=== PATIENT | female | born 1975 | race Caucasian/White ===

== ENCOUNTER 2020-06-14 18:38 | Emergency (ER) | payer OTHER, SELFPAY ==
[2020-06-14 18:44] VITALS: BP 129/82; BP 135/87; PULSE 86; PULSE 88; RESP 15; TEMP 37.1; O2SAT 95; O2SAT 99; BMI 28.6
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
[2020-06-14 18:50] LABS: Glucose, Whole Blood 502 mg/dL (60-115)
--- NOTE | 2020-06-14 18:54 | XR_ITS ---
EXAMINATION: XR CHEST CLINICAL INFORMATION: Atypical pneumonia COMPARISON: 12/09/2018 TECHNIQUE: Frontal view of the chest was obtained. FINDINGS: No significant abnormality is noted involving the heart, lungs, mediastinum, bony thorax or soft tissues. XR/XR chest 1V IMPRESSION: Unremarkable examination.
[2020-06-14] MEDS: 0.9 % Sodium Chloride 1,000 ML 999 ML IVCONT (19:00)
[2020-06-14 19:35] LABS: Basophils Percent Auto 0.1 % (0-2); Eosinophils Absolute Auto 0.3 X10*3/uL (0.0-0.4); Eosinophils Percent Auto 3.5 % (0-4); Hematocrit 38.9 % (37-47); Hemoglobin 13.1 g/dl (12.0-16.0); Imm Gran Abs Auto 0.02 X10*3/uL (0.00-0.03); Imm Gran Pct Auto 0.3 % (0.0-0.4); Lymphocytes Absolute Auto 2.4 X10*3/uL (1.2-4.9); Lymphocytes Percent Auto 31.9 % (20-40); MANUAL DIFF FLAG NO; Mean Corpuscular HGB Conc 33.7 g/dl (31.0-35.0); Mean Corpuscular Hemoglobin 30.5 pg (27.0-33.0); Mean Corpuscular Volume 90.5 fL (80-98); Monocytes Absolute Auto 0.5 X10*3/uL (0.1-1.2); Monocytes Percent Auto 6.6 % (2-11); Neutrophils Absolute Auto 4.3 X10*3/uL (2.0-8.3); Neutrophils Percent Auto 57.6 % (45-73); Platelet Count 215 X10*3/uL (160-400); Red Cell Distribution Width 14.4 % (11.0-16.0); White Blood Count 7.4 X10*3/uL (4.8-10.8)
[2020-06-14 19:46] LABS: Acetone, serum QL Negative (Negative)
[2020-06-14 19:53] LABS: Glucose, Whole Blood 375 mg/dL (60-115)
[2020-06-14 19:55] LABS: Ethanol 204 mg/dL
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
[2020-06-14 19:59] LABS: Anion Gap 15 (12-20); Blood Urea Nitrogen 13 mg/dL (9-16); Calcium 8.1 mg/dL (8.4-10.2); Carbon Dioxide 26 mmol/L (22-29); Chloride 100 mmol/L (96-108); Creatinine Clr Calc Pharmacy 52.6; Estimated Glomerular Filt Rate 54; Glucose Random 482 mg/dL (60-115); Potassium 4.6 mmol/l (3.3-5.1); Sodium 136 mmol/L (135-145)
[2020-06-14 20:01] LABS: Alanine Aminotransferase 118 U/L (0-31); Albumin Level 3.9 g/dL (3.5-5.0); Alkaline Phosphatase 117 U/L (39-117); Aspartate Amino Transferase 179 U/L (5-31); Bilirubin Direct 0.2 mg/dL (0.0-0.5); Bilirubin Total 0.3 mg/dL (0.0-1.0); Total Protein 7.5 g/dL (6.5-8.0)
[2020-06-14 20:14] LABS: Influenza A PCR NEGATIVE (Negative); Influenza B PCR NEGATIVE (Negative); Resp Syncy Virus RNA Qual PCR NEGATIVE (Negative); SARS COV2 PCR INHOUSE NEGATIVE (Negative)
== END 2020-06-14 20:03 | disposition left against medical advice (07) ==
PROVIDERS: Emergency Provider Internal Medicine; PCP Family Medicine
DX: E10.65 Type 1 diabetes mellitus with hyperglycemia (principal); Z20.828 Contact with and (suspected) exposure to other viral communicable diseases; Z79.4 Long term (current) use of insulin; Z96.41 Presence of insulin pump (external) (internal)
CPT/HCPCS: 0241U; 36415; 71045; 80048; 80076; 80320; 82009; 82947; 85025; 96360; 99283; 99284

== ENCOUNTER 2020-10-03 21:04 | Inpatient (IN) | payer OTHER, SELFPAY ==
--- NOTE | ~2020-10-03 | CT_ITS ---
EXAMINATION: CT CHEST, ABDOMEN AND PELVIS WITHOUT CONTRAST CLINICAL INFORMATION: Trauma. COMPARISON: 06/22/2018. 10/03/2020. TECHNIQUE: Contiguous axial thin section helical images of the chest, abdomen and pelvis were performed without oral or IV contrast. The data set was reformatted in the coronal and sagittal planes and reviewed on an independent workstation. DLP: 959 mGy-cm. FINDINGS: The heart is of normal size. There is no pericardial effusion. There is neither mediastinal, hilar nor axillary lymphadenopathy. There are no chest wall masses. Review of lung windows demonstrates that there are neither pleural effusions nor pneumothoraces. Throughout both lungs, there is extensive patchy groundglass opacification. The liver is of normal size and attenuation without focal lesions nor intrahepatic biliary ductal dilation. A normal gallbladder is identified. There is no wall thickening or discernible pericholecystic fluid. The spleen, pancreas, adrenal glands are unremarkable. Both kidneys are of normal size and attenuation without hydronephrosis or nephrolithiasis. There is no abdominal free fluid. There is neither mesenteric nor retroperitoneal lymphadenopathy. Normal unopacified loops of small and large bowel are identified. There is no pelvic free fluid. The urinary bladder is unremarkable. There is neither pelvic nor inguinal lymphadenopathy. Bone windows: Neither sclerotic nor lytic bone lesions are identified. CT/CT abdomen pelvis wo con IMPRESSION: Extensive groundglass opacification bilaterally. 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 No CT evidence for acute traumatic injury within the thorax, abdomen or pelvis. Automated exposure control (Care Dose) Adjustment of the mA and/or kv according to patient size (this includes techniques or standardized protocols for targeted exams where dose is matched to indication / reason for exam; i.e. extremities or head).
--- NOTE | ~2020-10-03 | US_ITS ---
EXAMINATION: US VENOUS ULTRASOUND WITH DOPPLER LOWER EXTREMITY, BILATERAL CLINICAL INFORMATION: Bilateral lower extremity swelling COMPARISON: None TECHNIQUE: Ultrasound of the deep veins is performed from the hip to the calf with compression sonography and color and pulse Doppler assessment. Spectral analysis with color-flow imaging is performed. FINDINGS: RIGHT: There is normal venous compression and respiratory variation and augmented flow. The visualized common femoral vein, superficial femoral vein, profunda femoral vein, popliteal vein, and the trifurcation region shows no evidence of deep venous thrombosis. There is no significant popliteal fossa cyst. LEFT: There is normal venous compression and respiratory variation and augmented flow. The visualized common femoral vein, superficial femoral vein, profunda femoral vein, popliteal vein, and the trifurcation region shows no evidence of deep venous thrombosis. There is no significant popliteal fossa cyst. If the patient's symptoms persist, followup ultrasound in 5 days 7 days might be of value to exclude proximal propagation from a non-visualized calf vein. US/US venous duplex LE BI IMPRESSION: No DVT demonstrated in either lower extremity.
--- NOTE | ~2020-10-03 | XR_ITS ---
EXAMINATION: XR CHEST CLINICAL INFORMATION: Follow up for pneumonitis COMPARISON: October 04, 2020 TECHNIQUE: 2 views of the chest were obtained. FINDINGS: There are again noted to be bilateral regions of patchy interstitial and airspace disease without significant change. Heart normal size. No evidence of pneumothorax or pleural effusion. XR/XR chest 2V IMPRESSION: No significant change and patchy bilateral regions of interstitial disease.
--- NOTE | ~2020-10-03 | NM_ITS ---
EXAMINATION: PULMONARY PERFUSION STUDY CLINICAL INFORMATION: Hypoxia. COMPARISON: No previous lung scan is available for comparison. CT scan of the S, abdomen, and pelvis dated 10/04/2020, the same date as this lung scan is available for comparison. A radiograph of the chest dated 10/03/2020 are also available for comparison. TECHNIQUE: Following the intravenous injection of 4.0 mCi Tc-99m MAA, an 8-view perfusion study was performed using a gamma scintillation camera. FINDINGS: No segmental perfusion defects are present. There is mildly heterogeneous distribution of activity bilaterally. There are no focal anatomic appearing perfusion defects present. The chest radiograph dated 10/03/2020 shows bilateral diffuse patchy infiltrates. NM/NM pul perfusion IMPRESSION: Very low probability of pulmonary embolism.
--- NOTE | ~2020-10-03 | CT_ITS ---
EXAMINATIONS: CT HEAD WITHOUT CONTRAST AND CT CERVICAL SPINE WITHOUT CONTRAST CLINICAL INFORMATION: Trauma. Fall. COMPARISON: 04/21/2016. TECHNIQUE: Contiguous helical images of the brain were obtained without IV contrast. Contiguous helical images of the cervical spine were obtained without IV contrast. Multiplanar reconstructions were performed. DLP: 897 mGy-cm. FINDINGS: There are no pathologic extra-axial fluid collections. The lateral, third, fourth ventricles are nondilated and concordant with the appearance of the sulci. There is no evidence for acute intraparenchymal hemorrhage or infarct. There is neither mass nor mass effect. There is no shift of midline structures. The paranasal sinuses and mastoid air cells are clear. There are no osseous lesions. The cervical vertebra are in normal alignment. Disc heights and vertebral heights are well-preserved. There are no fractures. There is no prevertebral soft tissue swelling. There is no cervical lymphadenopathy. The visualized lung apices are clear. CT/CT cervical spine wo con IMPRESSION: No evidence for acute intracranial injury. No evidence for acute injury to the cervical spine. Automated exposure control (Care Dose) Adjustment of the mA and/or kv according to patient size (this includes techniques or standardized protocols for targeted exams where dose is matched to indication / reason for exam; i.e. extremities or head).
--- NOTE | ~2020-10-03 | CT_ITS ---
EXAMINATION: CT CHEST, ABDOMEN AND PELVIS WITHOUT CONTRAST CLINICAL INFORMATION: Trauma. COMPARISON: 06/22/2018. 10/03/2020. TECHNIQUE: Contiguous axial thin section helical images of the chest, abdomen and pelvis were performed without oral or IV contrast. The data set was reformatted in the coronal and sagittal planes and reviewed on an independent workstation. DLP: 959 mGy-cm. FINDINGS: The heart is of normal size. There is no pericardial effusion. There is neither mediastinal, hilar nor axillary lymphadenopathy. There are no chest wall masses. Review of lung windows demonstrates that there are neither pleural effusions nor pneumothoraces. Throughout both lungs, there is extensive patchy groundglass opacification. The liver is of normal size and attenuation without focal lesions nor intrahepatic biliary ductal dilation. A normal gallbladder is identified. There is no wall thickening or discernible pericholecystic fluid. The spleen, pancreas, adrenal glands are unremarkable. Both kidneys are of normal size and attenuation without hydronephrosis or nephrolithiasis. There is no abdominal free fluid. There is neither mesenteric nor retroperitoneal lymphadenopathy. Normal unopacified loops of small and large bowel are identified. There is no pelvic free fluid. The urinary bladder is unremarkable. There is neither pelvic nor inguinal lymphadenopathy. Bone windows: Neither sclerotic nor lytic bone lesions are identified. CT/CT chest wo con IMPRESSION: Extensive groundglass opacification bilaterally. In consideration of the recent chest radiograph and the diagnosis of pneumonia, this appearance is likely medical detail representative of pneumonia rather than contusion. No CT evidence for acute traumatic injury within the thorax, abdomen or pelvis. Automated exposure control (Care Dose) Adjustment of the mA and/or kv according to patient size (this includes techniques or standardized protocols for targeted exams where dose is matched to indication / reason for exam; i.e. extremities or head).
--- NOTE | ~2020-10-03 | CT_ITS ---
EXAMINATION: CT ANGIOGRAM OF THE CHEST WITH AND WITHOUT CONTRAST (CT PULMONARY ANGIOGRAM FOR PE) CLINICAL INFORMATION: Reason for Exam hypoxia COMPARISON: 10/04/2020 CT. VQ scan earlier today. TECHNIQUE: Prior to contrast administration, noncontrast localization images were obtained. Subsequently, multidetector volumetric imaging was performed from the thoracic inlet to below the diaphragms following the administration of 65 mL Omnipaque 350 intravenous contrast. No contrast reaction reported Sagittal, coronal, and MIP oblique sagittal reformatted images were obtained on the CT workstation, uploaded to PACS, and reviewed. This CT examination was performed using dose optimization techniques as appropriate, variously including the following: *Automated exposure control *Adjustment of mA and/or kV according to patient size (this includes techniques or standardized protocols for targeted exams where dose is matched to indication/reason for exam; i.e. extremities or head) *Use of iterative reconstruction technique Total exam dose-length product 255 mGy-cm FINDINGS: QUALITY OF STUDY/CONTRAST BOLUS: Satisfactory. PULMONARY ARTERIES: No central or segmental pulmonary emboli. THORACIC AORTA: No aneurysm or dissection. LUNG: The central airways are patent. Diffuse bilateral groundglass opacification seen throughout both lungs, with relatively patchy appearance. This is unchanged from the recent prior study. PLEURA: No pleural effusion or pneumothorax. MEDIASTINUM: Normal heart size. No pericardial effusion. No hilar or mediastinal lymphadenopathy. No evidence of septal bowing or right heart strain. CHEST WALL/AXILLA: No axillary or internal mammary lymphadenopathy. OSSEOUS STRUCTURES: No acute or suspicious osseous abnormality. UPPER ABDOMEN: Unremarkable. No reflux of contrast into the hepatic veins to suggest elevated right heart pressures. CT/CT angio chest PE protocol IMPRESSION: 1. No pulmonary embolism. 2. Unchanged appearance of the lungs with diffuse bilateral groundglass opacities. This again is most suggestive of pneumonia. Viral pneumonia could have this appearance. VTE: negative
--- NOTE | ~2020-10-03 | CT_ITS ---
EXAMINATIONS: CT HEAD WITHOUT CONTRAST AND CT CERVICAL SPINE WITHOUT CONTRAST CLINICAL INFORMATION: Trauma. Fall. COMPARISON: 04/21/2016. TECHNIQUE: Contiguous helical images of the brain were obtained without IV contrast. Contiguous helical images of the cervical spine were obtained without IV contrast. Multiplanar reconstructions were performed. DLP: 897 mGy-cm. FINDINGS: There are no pathologic extra-axial fluid collections. The lateral, third, fourth ventricles are nondilated and concordant with the appearance of the sulci. There is no evidence for acute intraparenchymal hemorrhage or infarct. There is neither mass nor mass effect. There is no shift of midline structures. The paranasal sinuses and mastoid air cells are clear. There are no osseous lesions. The cervical vertebra are in normal alignment. Disc heights and vertebral heights are well-preserved. There are no fractures. There is no prevertebral soft tissue swelling. There is no cervical lymphadenopathy. The visualized lung apices are clear. CT/CT head/brain wo con IMPRESSION: No evidence for acute intracranial injury. No evidence for acute injury to the cervical spine. Automated exposure control (Care Dose) Adjustment of the mA and/or kv according to patient size (this includes techniques or standardized protocols for targeted exams where dose is matched to indication / reason for exam; i.e. extremities or head).
--- NOTE | ~2020-10-03 | XR_ITS ---
EXAMINATION: XR CHEST CLINICAL INFORMATION: Pneumonia COMPARISON: 06/14/2020 TECHNIQUE: Frontal view of the chest was obtained. FINDINGS: Previously the chest x-ray was normal and now it is grossly abnormal with diffuse infiltrates. Heart size appears mildly larger than previously noted at the upper limits of normal. No gross pleural effusions are seen. XR/XR chest 1V IMPRESSION: Commonly reported imaging features of Covid 19 or viral pneumonia are now present with multifocal diffuse patchy infiltrates. Other processes such as influenza pneumonia or organizing pneumonia, as can be seen with drug toxicity and connective tissue disease, can cause a similar imaging pattern.
[2020-10-03 21:25] VITALS: BP 115/78; PULSE 103; RESP 22; TEMP 37.2; O2SAT 93; BMI 27.3
[2020-10-03 21:26] LABS: Glucose, Whole Blood 92 mg/dL (60-115)
--- NOTE | 2020-10-03 21:41 | ED.GENADULT ---
HPI - General Adult General Chief complaint: General Medical Stated complaint: syncope Time Seen by Provider: 10/03/20 21:23 Source: patient Mode of arrival: ambulatory Limitations: no limitations History of Present Illness HPI narrative: Patient presents to ED for syncopal episodes. Patient states she got up to go to the bathroom and then when she woke up she was on the floor. Patient's x-ray might be due to her sugar because her glucose was over 600 the whole day even while she is having insulin pump. Patient states her insulin pump stated that does know deliver insulin. Patient states when EMS saw her her O2 saturation was 45%. Patient denies any chest pain or shortness of breath. Related Data Home Medications Medication Instructions Recorded Confirmed albuterol sulfate 2 puff INHALATION Q6H PRN 10/04/20 10/04/20 albuterol sulfate [ProAir HFA] 2 puff PO Q6H PRN 10/04/20 10/04/20 benzonatate 1 cap PO TID 10/04/20 10/04/20 fluticasone propionate [Flovent 2 puff PO BID 10/04/20 10/04/20 HFA] ipratropium-albuterol 1 vial INHALATION QID PRN 10/04/20 10/04/20 lovastatin 1 tab PO DAILY 10/04/20 10/04/20 nystatin 5 ml PO QID 10/04/20 10/04/20 Allergies Allergy/AdvReac Type Severity Reaction Status Date / Time ibuprofen [IBUPROFEN] Allergy Unknown LIGHTHEADED;FEELS Verified 06/14/20 18:57 LIKE CHEST IS CLOSING IN;CLAUSTROPHOBIC Review of Systems Review of Systems: Yes all other systems are reviewed and are negative Constitutional: Constitutional: Reports as per HPI and Reports no additional constitutional complaints Eyes: Eyes: Reports as per HPI and Reports no additional eye complaints ENT: Reports system reviewed and no additional complaints, except as documented and Reports as per HPI Cardiovascular: Cardiovascular: Reports as per HPI and Reports no additional cardiovascular complaints Respiratory: Respiratory: Reports as per HPI and Reports no additional respiratory complaints Gastrointestinal: Gastrointestinal: Reports as per HPI and Reports no additional gastrointestinal complaints Musculoskeletal: Musculoskeletal: Reports no additional musculoskeletal complaints and Reports as per HPI Neurologic: Reports system reviewed and no additional complaints, except as documented and Reports as per HPI Psychiatric: Psychiatric: Reports no additional psychiatric complaints and Reports as per HPI [facility] Past Medical History Medical History Asthma 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 Social History Social History Smoking Status: Current every day smoker Advance Directives: No Advance Directives Information Provided: Yes Physical Exam Vital Signs: Vital Signs: Last Vital Signs Temp 98.0 F 10/04/20 01:49 Pulse 99 10/04/20 01:49 Resp 18 10/04/20 01:49 BP 125/78 10/04/20 01:49 Pulse Ox 94 10/04/20 01:49 Body Mass Index 27.3 Const: General: cooperative, healthy appearing, comfortable, no acute distress, well developed, alert and awake Orientation/consciousness: patient oriented x3 HENMT: Head: Yes normal to inspection, Yes No palpable skull fracture present, Yes normocephalic, Yes atraumatic, No abrasion, No Eric's sign, No cranial bruits, No hematoma, No laceration, No occipital foramen tenderness, No palpable skull fracture, No raccoon eyes, No Temporal artery tenderness present and No periorbital ecchymosis Eyes: General: appearance normal, both eyes and all related structures Neck: Neck: Yes normal visual inspection, Yes full ROM, Yes no lymphadenopathy, Yes no meningeal signs, Yes trachea midline, Yes supple and No tender Chest: Chest palpation & inspection: normal inspection of the chest and normal palpation of entire chest wall Resp: Effort & Inspection: normal respiratory effort and able to speak in complete sentences Auscultation: wheezes (Diffuse) expiratory wheezes Cardio: Jugular venous distension: no JVD Heart sounds: S1 normal heart sound present and S2 normal heart sound present GI: Inspection: Yes normal to inspection and No abdominal wall ecchymosis Palpation (GI): Soft to palpation, not firm, nontender, no guarding and not rigid : General: No CVA tenderness and Yes no CVA tenderness Back/Spine/Pelvis: Back: no CVA tenderness, No CVA tenderness and No back tenderness Skin: General skin exam: no rashes or lesions noted and elasticity normal Neuro: General: patient oriented x3, no meningeal signs and CN's II-XI intact bilaterally Cranial nerves: Yes CN's II-XII intact bilaterally Extrem: Other: Bilateral lower extremity swelling with more on the right. Psych: Appearance: grossly normal, well kempt and not disheveled Course Course Course Narrative: Patient presently on 4 L of oxygen with O2 saturation 93% on room air O2 saturation 83%. Due to patient having syncopal episode will do cardiac and pulmonary evaluation. May do chest CT to rule out PE. Reevaluation(s) Reevaluation #1: X-ray reading shows COVID pneumonia. Patient started on Decadron, ceftriaxone, azithromycin, albuterol, and magnesium. Patient sent for lower extremity Doppler. Reevaluation #2: Ultrasound negative for any blood clots. Patient white count [id number]. Troponin 300, BNP over 600. Lactic 2.9. Patient having viral infection. Due to BNP 680 would not fluid overload patient and will not give some fluid. Due to patient receiving fluids on magnesium and Decadron. Waiting for creatinine to send patient for chest CT to rule out PE. Reevaluation #3: Patient creatinine is abnormal. Not able to perform CT a of chest to rule out PE. Hospitalist ervin. Patient to be admitted for viral COVID pneumonia. Patient has viral infection. Patient is not having bacterial sepsis. Additional Reevaluation(s): Spoke with hospitalist Dr. Ibrahim who requests cardiology and gastroenterology to be consulted. Tylenol level, hepatitis panel, dry abdominal CT, dry chest CT, and head CT ordered. 03:23. Patient's chest CT showed bilateral ground-glass opacification. Head CT and C-spine normal. Abdominal CT scan does not show any obstruction of CBD or gallstones. Awaiting to hear back from Gastroenterology and Cardiology. At 03:[address] Hurst of Cardiology was informed of patient's history, physical exam, and diagnostics. He was given copy of patient's EKG, labs, and chest x-ray. He states due to patient having COVID and n elevated D-dimer, syncope, hypoxia he recommends patient be started on heparin drip for possible PE and given small amount of fluids so patient could have possible repeat CTA in the morning or V/Q scan. Hospitalist made aware that Dr. Contreras of Gastroenterology has not yet responded back. At 04:07. I spoke with Dr. Contreras of Gastroenterology. He was informed of patient's history, physical exam, and diagnostics including labs. He states patient could be admitted to our hospital and he will follow as a consult. Patient to be admitted Medical Decision Making MDM Narrative Medical decision making narrative: COVID pneumonia Lab Data Result diagrams: 10/03/20 22:30 10/03/20 23:42 Labs: Lab Results 10/03/20 10/03/20 10/03/20 Range/Units 21:20 22:29 22:29 WBC (4.8-10.8) X10*3/uL RBC (4.20-5.50) X10*6/uL Hgb (12.0-16.0) g/dl Hct (37-47) % MCV (80-98) fL MCH (27.0-33.0) pg MCHC (31.0-35.0) g/dl RDW (11.0-16.0) % Plt Count (160-400) X10*3/uL MPV (9.4-12.3) fL Immature Gran % (Auto) (0.0-0.4) % Neut % (Auto) (45-73) % Lymph % (Auto) (20-40) % [place] % (Auto) (2-11) % Eos % (Auto) (0-4) % Baso % (Auto) (0-2) % Lymph # (Auto) (1.2-4.9) X10*3/uL [place] # (Auto) (0.1-1.2) X10*3/uL Eos # (Auto) (0.0-0.4) X10*3/uL Baso # (Auto) (0.0-0.2) X10*3/uL Abs Immat Gran (auto) (0.00-0.03) X10*3/uL Absolute Neuts (auto) (2.0-8.3) X10*3/uL Absolute Nucleated RBC (0.0-0.012) X10*3/uL Nucleated RBC % (auto) (0.0-0.2) /100WBC Smear Tech's Comments PT (10.8-13.0) SEC INR (0.9-1.1) APTT (24.1-38.0) SEC D-Dimer NG/ML Sodium (135-145) mmol/L Potassium (3.3-5.1) mmol/L Chloride (96-108) mmol/L Carbon Dioxide (22-29) mmol/L Anion Gap (12-20) BUN (9-16) mg/dL Creatinine (0.5-1.4) mg/dL Estim Creat Clear Calc Estimated GFR POC Glucose 92 (60-115) mg/dL Random Glucose (60-115) mg/dL Lactic Acid 2.9 H* (0.5-2.0) mmol/L Lactic Acid Fup @ 2Hr (0.5-2.0) mmol/L Calcium (8.4-10.2) mg/dL Total Bilirubin (0.0-1.0) mg/dL AST (5-31) U/L ALT (0-31) U/L Alkaline Phosphatase (39-117) U/L Ammonia (13-55) umol/L Troponin I High Sens 372.6 H (<3.5-17.0) ng/L B-Natriuretic Peptide 680 H (<100) pg/mL Total Protein (6.5-8.0) g/dL Albumin (3.5-5.0) g/dL Specimen Comment Acetaminophen (<30) mcg/mL Coronavirus (PCR) (Negative) Influenza Type A (PCR) (Negative) Influenza Type B (PCR) (Negative) RSV RNA Qual (PCR) (Negative) 10/03/20 10/03/20 10/03/20 Range/Units 22:29 22:30 22:30 WBC 16.3 H (4.8-10.8) X10*3/uL RBC 4.10 L (4.20-5.50) X10*6/uL Hgb 11.5 L (12.0-16.0) g/dl Hct 34.5 L (37-47) % MCV 84.1 (80-98) fL MCH 28.0 (27.0-33.0) pg MCHC 33.3 (31.0-35.0) g/dl RDW 16.8 H (11.0-16.0) % Plt Count 223 (160-400) X10*3/uL MPV 10.9 (9.4-12.3) fL Immature Gran % (Auto) 1.2 H (0.0-0.4) % Neut % (Auto) 66.7 (45-73) % Lymph % (Auto) 20.0 (20-40) % [place] % (Auto) 11.6 H (2-11) % Eos % (Auto) 0.4 (0-4) % Baso % (Auto) 0.1 (0-2) % Lymph # (Auto) 3.3 (1.2-4.9) X10*3/uL [place] # (Auto) 1.9 H (0.1-1.2) X10*3/uL Eos # (Auto) 0.1 (0.0-0.4) X10*3/uL Baso # (Auto) 0.0 (0.0-0.2) X10*3/uL Abs Immat Gran (auto) 0.20 H (0.00-0.03) X10*3/uL Absolute Neuts (auto) 10.9 H (2.0-8.3) X10*3/uL Absolute Nucleated RBC 0.030 H (0.0-0.012) X10*3/uL Nucleated RBC % (auto) 0.2 (0.0-0.2) /100WBC Smear Tech's Comments VERIFIED PT 14.5 H (10.8-13.0) SEC INR 1.2 H (0.9-1.1) APTT 29.3 (24.1-38.0) SEC D-Dimer 2274 NG/ML Sodium (135-145) mmol/L Potassium (3.3-5.1) mmol/L Chloride (96-108) mmol/L Carbon Dioxide (22-29) mmol/L Anion Gap (12-20) BUN (9-16) mg/dL Creatinine (0.5-1.4) mg/dL Estim Creat Clear Calc Estimated GFR POC Glucose (60-115) mg/dL Random Glucose (60-115) mg/dL Lactic Acid (0.5-2.0) mmol/L Lactic Acid Fup @ 2Hr (0.5-2.0) mmol/L Calcium (8.4-10.2) mg/dL Total Bilirubin (0.0-1.0) mg/dL AST (5-31) U/L ALT (0-31) U/L Alkaline Phosphatase (39-117) U/L Ammonia (13-55) umol/L Troponin I High Sens (<3.5-17.0) ng/L B-Natriuretic Peptide (<100) pg/mL Total Protein (6.5-8.0) g/dL Albumin (3.5-5.0) g/dL Specimen Comment Acetaminophen (<30) mcg/mL Coronavirus (PCR) NEGATIVE (Negative) Influenza Type A (PCR) NEGATIVE (Negative) Influenza Type B (PCR) NEGATIVE (Negative) RSV RNA Qual (PCR) NEGATIVE (Negative) 10/03/20 10/03/20 10/04/20 Range/Units 23:42 23:47 03:08 WBC (4.8-10.8) X10*3/uL RBC (4.20-5.50) X10*6/uL Hgb (12.0-16.0) g/dl Hct (37-47) % MCV (80-98) fL MCH (27.0-33.0) pg MCHC (31.0-35.0) g/dl RDW (11.0-16.0) % Plt Count (160-400) X10*3/uL MPV (9.4-12.3) fL Immature Gran % (Auto) (0.0-0.4) % Neut % (Auto) (45-73) % Lymph % (Auto) (20-40) % [place] % (Auto) (2-11) % Eos % (Auto) (0-4) % Baso % (Auto) (0-2) % Lymph # (Auto) (1.2-4.9) X10*3/uL [place] # (Auto) (0.1-1.2) X10*3/uL Eos # (Auto) (0.0-0.4) X10*3/uL Baso # (Auto) (0.0-0.2) X10*3/uL Abs Immat Gran (auto) (0.00-0.03) X10*3/uL Absolute Neuts (auto) (2.0-8.3) X10*3/uL Absolute Nucleated RBC (0.0-0.012) X10*3/uL Nucleated RBC % (auto) (0.0-0.2) /100WBC Smear Tech's Comments PT (10.8-13.0) SEC INR (0.9-1.1) APTT (24.1-38.0) SEC D-Dimer NG/ML Sodium 128 L (135-145) mmol/L Potassium 3.4 (3.3-5.1) mmol/L Chloride 82 L (96-108) mmol/L Carbon Dioxide 32 H (22-29) mmol/L Anion Gap 17 (12-20) BUN 30 H D (9-16) mg/dL Creatinine 1.65 H (0.5-1.4) mg/dL Estim Creat Clear Calc 35.8 Estimated GFR 34 POC Glucose (60-115) mg/dL Random Glucose 72 D (60-115) mg/dL Lactic Acid (0.5-2.0) mmol/L Lactic Acid Fup @ 2Hr 2.4 H* (0.5-2.0) mmol/L Calcium 7.6 L D (8.4-10.2) mg/dL Total Bilirubin 1.0 (0.0-1.0) mg/dL AST 6254 H (5-31) U/L ALT 1006 H (0-31) U/L Alkaline Phosphatase 167 H D (39-117) U/L Ammonia (13-55) umol/L Troponin I High Sens (<3.5-17.0) ng/L B-Natriuretic Peptide (<100) pg/mL Total Protein 6.5 (6.5-8.0) g/dL Albumin 3.5 (3.5-5.0) g/dL Specimen Comment DELAY Acetaminophen (<30) mcg/mL Coronavirus (PCR) (Negative) Influenza Type A (PCR) (Negative) Influenza Type B (PCR) (Negative) RSV RNA Qual (PCR) (Negative) 10/04/20 10/04/20 10/04/20 Range/Units 03:08 03:08 03:08 WBC (4.8-10.8) X10*3/uL RBC (4.20-5.50) X10*6/uL Hgb (12.0-16.0) g/dl Hct (37-47) % MCV (80-98) fL MCH (27.0-33.0) pg MCHC (31.0-35.0) g/dl RDW (11.0-16.0) % Plt Count (160-400) X10*3/uL MPV (9.4-12.3) fL Immature Gran % (Auto) (0.0-0.4) % Neut % (Auto) (45-73) % Lymph % (Auto) (20-40) % [place] % (Auto) (2-11) % Eos % (Auto) (0-4) % Baso % (Auto) (0-2) % Lymph # (Auto) (1.2-4.9) X10*3/uL [place] # (Auto) (0.1-1.2) X10*3/uL Eos # (Auto) (0.0-0.4) X10*3/uL Baso # (Auto) (0.0-0.2) X10*3/uL Abs Immat Gran (auto) (0.00-0.03) X10*3/uL Absolute Neuts (auto) (2.0-8.3) X10*3/uL Absolute Nucleated RBC (0.0-0.012) X10*3/uL Nucleated RBC % (auto) (0.0-0.2) /100WBC Smear Tech's Comments PT (10.8-13.0) SEC INR (0.9-1.1) APTT (24.1-38.0) SEC D-Dimer NG/ML Sodium (135-145) mmol/L Potassium (3.3-5.1) mmol/L Chloride (96-108) mmol/L Carbon Dioxide (22-29) mmol/L Anion Gap (12-20) BUN (9-16) mg/dL Creatinine (0.5-1.4) mg/dL Estim Creat Clear Calc Estimated GFR POC Glucose (60-115) mg/dL Random Glucose (60-115) mg/dL Lactic Acid (0.5-2.0) mmol/L Lactic Acid Fup @ 2Hr (0.5-2.0) mmol/L Calcium (8.4-10.2) mg/dL Total Bilirubin (0.0-1.0) mg/dL AST (5-31) U/L ALT (0-31) U/L Alkaline Phosphatase (39-117) U/L Ammonia 74 H (13-55) umol/L Troponin I High Sens 258.8 H (<3.5-17.0) ng/L B-Natriuretic Peptide (<100) pg/mL Total Protein (6.5-8.0) g/dL Albumin (3.5-5.0) g/dL Specimen Comment Acetaminophen 1 (<30) mcg/mL Coronavirus (PCR) (Negative) Influenza Type A (PCR) (Negative) Influenza Type B (PCR) (Negative) RSV RNA Qual (PCR) (Negative) ECG Data Interpretation: Normal sinus rhythm. Ventricular rate 98. Pr interval 144. QRS 86. QTC 444. Negative STEMI Critical Care Time Critical Care Time Critical Care Time: Yes Total Critical Care Time: 45 Attestation: Patient started on heparin drip. Consult to Cardiology and Gastroenterology due to troponin, elevated liver enzymes. Patient on 4 L oxygen. Discharge Plan Discharge Clinical Impression: COVID-19 Patient Disposition: Admitted As Inpatient
--- NOTE | 2020-10-03 21:42 | ECG_ITS ---
Test Reason : SOB Blood Pressure : / mmHG Vent. Rate : 098 BPM Atrial Rate : 098 BPM P-R Int : 144 ms QRS Dur : 086 ms QT Int : 348 ms P-R-T Axes : 057 025 000 degrees QTc Int : 444 ms Normal sinus rhythm Possible Left atrial enlargement Borderline ECG When compared with ECG of 09-DEC-2018 06:19, T wave inversion now evident in Inferior leads T wave inversion now evident in Anterior leads Referred By: Eddy Bowers Electronically Signed By:THEODORE JON MD
[2020-10-03 22:40] LABS: Basophils Percent Auto 0.1 % (0-2); Eosinophils Absolute Auto 0.1 X10*3/uL (0.0-0.4); Eosinophils Percent Auto 0.4 % (0-4); Hematocrit 34.5 % (37-47); Hemoglobin 11.5 g/dl (12.0-16.0); Imm Gran Pct Auto 1.2 % (0.0-0.4); Lymphocytes Absolute Auto 3.3 X10*3/uL (1.2-4.9); MANUAL DIFF FLAG SCAN; Mean Corpuscular HGB Conc 33.3 g/dl (31.0-35.0); Mean Corpuscular Volume 84.1 fL (80-98); Mean Platelet Volume 10.9 fL (9.4-12.3); Monocytes Absolute Auto 1.9 X10*3/uL (0.1-1.2); Monocytes Percent Auto 11.6 % (2-11); NRBC Pct Auto 0.2 /100WBC (0.0-0.2); Neutrophils Absolute Auto 10.9 X10*3/uL (2.0-8.3); Neutrophils Percent Auto 66.7 % (45-73); Platelet Count 223 X10*3/uL (160-400); Red Cell Distribution Width 16.8 % (11.0-16.0); SCAN SMEAR FLAG 1; White Blood Count 16.3 X10*3/uL (4.8-10.8)
[2020-10-03 22:48] LABS: INTERNATIONAL NORM RATIO 1.2 (0.9-1.1); Prothrombin Time 14.5 SEC (10.8-13.0)
[2020-10-03 22:50] LABS: Partial Thromboplastin Time 29.3 SEC (24.1-38.0)
[2020-10-03] MEDS: Magnesium Sulfate/H2O 2 GM/50 ML PIGGYBACK IV (23:00)
[2020-10-03 23:03] LABS: SLIDE REVIEW VERIFIED
[2020-10-03 23:15] LABS: Influenza A PCR NEGATIVE (Negative); Influenza B PCR NEGATIVE (Negative); Resp Syncy Virus RNA Qual PCR NEGATIVE (Negative); SARS COV2 PCR INHOUSE NEGATIVE (Negative)
[2020-10-03 23:16] LABS: B Type Natriuretic Peptide 680 pg/mL (<100); Lactic Acid 2.9 mmol/L (0.5-2.0); Troponin-I High Sensitivity 372.6 ng/L (<3.5-17.0)
[2020-10-03] MEDS: Albuterol Sulfate 90 MCG 8 GM INHALER 4 PUFF INHALE (23:32)
[2020-10-03] MEDS: cefTRIAXone sodium 1 GM in 0.9 % Sodium Chloride 50 ML IV (23:32)
[2020-10-03 23:48] LABS: Delay - Chemistry DELAY
[2020-10-03] MEDS: Azithromycin 500 MG in 0.9 % Sodium Chloride 250 ML 125 MG IV (23:50)
[2020-10-04 00:35] LABS: Reflex Lactate? Lactic Acid Added
[2020-10-04 01:12] LABS: Alanine Aminotransferase 1006 U/L (0-31); Albumin Level 3.5 g/dL (3.5-5.0); Alkaline Phosphatase 167 U/L (39-117); Anion Gap 17 (12-20); Blood Urea Nitrogen 30 mg/dL (9-16); Calcium 7.6 mg/dL (8.4-10.2); Carbon Dioxide 32 mmol/L (22-29); Chloride 82 mmol/L (96-108); Creatinine Clr Calc Pharmacy 35.8; Estimated Glomerular Filt Rate 34; Glucose Random 72 mg/dL (60-115); Potassium 3.4 mmol/L (3.3-5.1); Sodium 128 mmol/L (135-145); Total Protein 6.5 g/dL (6.5-8.0)
[2020-10-04 01:34] LABS: Aspartate Amino Transferase 6254 U/L (5-31)
[2020-10-04 01:44] LABS: D Dimer 2274 NG/ML
[2020-10-04 01:49] VITALS: BP 125/78; PULSE 99; RESP 18; TEMP 36.7; O2SAT 94
[2020-10-04 03:30] LABS: Ammonia 74 umol/L (13-55)
[2020-10-04 03:39] LABS: Acetaminophen LAB 1 mcg/mL (<30); ~Lactic Acid-LAB USE ONLY 2.4 mmol/L (0.5-2.0)
[2020-10-04 03:45] LABS: Troponin-I High Sensitivity 258.8 ng/L (<3.5-17.0)
[2020-10-04 04:00] LABS: HBS Num1 3.87 mIU/mL (0-7.99); HBsAGNum1 0.19 S/CO (0.00-0.99); Hepatitis B Surface Antigen Negative (Negative); ~Hepatitis B Surface Antibody NONREACTIVE (Nonreactive)
[2020-10-04 04:01] LABS: HBc Num1 0.11 S/CO (0.00-0.79); Hepatitis B Core Antibody Nonreactive (Nonreactive); ~HepC Num1 13.86 S/CO (0.00-0.79); ~Hepatitis C Antibody Reactive (Nonreactive)
[2020-10-04] MEDS: Heparin Sodium,Porcine/1/2NS 25,000 UNIT/250 ML IV.SOLN 8.89 UNIT IVCONT (04:25)
[2020-10-04] MEDS: Heparin Sodium,Porcine 5,000 UNIT/ML VIAL 5100 UNIT IVPUSH (04:26)
[2020-10-04] MEDS: 0.9 % Sodium Chloride 500 ML IV (04:27)
[2020-10-04 04:28] VITALS: BP 110/61; PULSE 92; RESP 23; TEMP 36.8; O2SAT 96
[2020-10-04 05:13] LABS: Reflex Lactate? 2 Y
--- NOTE | 2020-10-04 05:18 | P.HPHOSP_ITS ---
History of Present Illness Date of Service: 10/04/20 Chief Complaint: Syncope 45-year-old female with a past medical history of asthma, diabetes on insulin pump, history of IV drug abuse relapse in August presented to the hospital with a chief complaint of syncope. Reportedly patient mentioned that she has been doing okay until 2 days ago; yesterday she mentioned that she has been having high blood glucose levels all day when she checked her pump which is insulin was knotted administered; subsequently she made some changes and has given insulin. Later she went to the bathroom and subsequently had a syncopal episode. EMS was called in and brought her to the hospital for further evaluation. When the EMS arrived patient was hypoxic to 40s. Placed on a non- rebreather. In the ER patient was noted to be saturating 80% on room air subsequently placed on supplemental oxygen with improvement in oxygenation. Patient was not in respiratory distress per the ER team. Patient's fingerstick glucose was noted to be 92 and on the basic metabolic panel the glucose was 72. Chest x-ray showed multifocal infiltrates. COVID-19 negative. On the labs noted to have severely elevated liver enzymes with negative salicylates and Tylenol. Also noted to have elevated troponins but patient denied any chest pain and EKG was nonischemic; ER team spoke to Dr. menjivar with from Cardiology who recommended to start the patient on heparin drip. ER team also spoke to Dr. ward some from Gastroenterology who recommended admission to the [facility] and he will evaluate the patient in the morning. Patient denied any chest pain palpitations lightheadedness or dizziness. Review of all other systems is negative except mentioned above [facility] Medical History Asthma Diabetes Diabetic acetonemia Drug abuse in remission Pneumonia Pneumonia Post-tubal ligation syndrome Social History Household Members: Spouse Housing: House Smoking Status: Current every day smoker Tobacco Type: Cigarette Packs Per Day: 1.5 Cigarettes Per Day: 30.0 Years Smoked: 32 Substance Use Type: Heroin Advance Directives: No Advance Directives Information Provided: No service: No Current occupational status: unemployed Meds Allergies Allergy/AdvReac Type Severity Reaction Status Date / Time ibuprofen [IBUPROFEN] Allergy Unknown LIGHTHEADED;FEELS Verified 06/14/20 18:57 LIKE CHEST IS CLOSING IN;CLAUSTROPHOBIC Active Medications: Current Medications Generic Name Dose Route Start Last Admin Trade Name Freq PRN Reason Stop Dose Admin Albuterol Sulfate 2 puff 10/04/20 05:14 Albuterol Sulfate 90 Mcg 8 Gm Inhaler INHALE Q6H PRN wheezing Albuterol/Ipratropium ml 10/04/20 05:14 Albuterol/Iprat 2.5/0.5mg 3 Ml Ampul.Neb INHALE QID PRN wheezing Azithromycin 500 mg 10/04/20 05:15 Azithromycin 500 Mg Tablet PO Q24H SILKE Benzonatate 100 mg 10/04/20 09:00 Benzonatate 100 Mg Capsule PO TID SILKE Dexamethasone 6 mg 10/04/20 09:00 Dexamethasone 6 Mg Tablet PO DAILY SILKE Heparin Sodium/Sodium Chloride 25,000 unit in 250 mls @ 0 mls/hr 10/04/20 03:45 10/04/20 04:25 IVCONT 14 units/kg/hr .Q0M SILKE 8.89 mls/hr Administration Protocol Per Protocol Ceftriaxone Sodium 1 gm/ 50 mls @ 100 mls/hr 10/04/20 05:15 Sodium Chloride IV Q24H SILKE Metronidazole 500 mg in 100 mls @ 100 mls/hr 10/04/20 05:15 Flagyl IV Q8H [facility] Sodium Chloride 3 ml 10/04/20 08:00 0.9 % Sodium Chloride Flush 3 Ml Syringe IVFLUSH QSHIFT [facility] Sodium Chloride 3 ml 10/04/20 08:00 0.9 % Sodium Chloride Flush 3 Ml Syringe IVFLUSH QSHIFT [facility] Home Medications Medication Instructions Recorded Confirmed Last Taken Type Flovent HFA 2 puff PO BID 10/04/20 10/11/20 10/03/20 History albuterol sulfate 2 puff INHALATION Q6H PRN 10/04/20 10/11/20 Unknown History aspirin 81 mg PO DAILY 10/04/20 10/11/20 10/03/20 History insulin lispro [Admelog U-100 80 unit SUBCUT DAILY 10/04/20 10/11/20 10/04/20 History Insulin lispro] ipratropium-albuterol 1 vial INHALATION Q6H PRN 10/04/20 10/11/20 Unknown History nystatin 5 ml PO QID 10/04/20 10/11/20 10/03/20 History subcutaneous insulin pump 10/04/20 10/04/20 Unknown History sumatriptan succinate 50 mg PO DAILY PRN 10/04/20 10/11/20 Unknown History Physical Exam Vital Signs and Narrative: Vital Signs: Last Vital Signs Temp 98.2 F 10/04/20 04:28 Pulse 92 10/04/20 04:28 Resp 23 H 10/04/20 04:28 BP 110/61 10/04/20 04:28 Pulse Ox 96 10/04/20 04:28 Body Mass Index 27.3 Gen: Appears be in no acute distress HEENT: NCAT, Moist mucosa. Pulmonary: Coarse breath sounds CVS: Normal S1-S2 Abdomen: BS+, Soft, Nontender Extremities: Warm well perfused Neuro: Alert and awake. Mentating well, oriented x3. No signs of en cephalopathy. Grossly nonfocal exam. Results Labs CBC and Chem 7: 10/04/20 07:04 10/07/20 11:35 Labs: Laboratory Results - last 24 hr 10/03/20 10/03/20 10/03/20 21:20 22:29 22:29 MCV MCH MCHC RDW Plt Count MPV Immature Gran % (Auto) Neut % (Auto) Lymph % (Auto) Wilkinson % (Auto) Eos % (Auto) Baso % (Auto) Lymph # (Auto) Wilkinson # (Auto) Eos # (Auto) Baso # (Auto) Abs Immat Gran (auto) Absolute Neuts (auto) Absolute Nucleated RBC Nucleated RBC % (auto) Smear Tech's Comments PT INR APTT D-Dimer Anion Gap Estim Creat Clear Calc Estimated GFR POC Glucose 92 Random Glucose Lactic Acid 2.9 H* Lactic Acid Fup @ 2Hr Calcium Total Bilirubin AST ALT Alkaline Phosphatase Ammonia Total Creatine Kinase Troponin I High Sens 372.6 H B-Natriuretic Peptide 680 H Total Protein Albumin Specimen Comment Acetaminophen Coronavirus (PCR) Hep Bs Antigen Hep Bs Antibody Hep B Core Total Ab Hepatitis C Ab (EIA) Influenza Type A (PCR) Influenza Type B (PCR) RSV RNA Qual (PCR) 10/03/20 10/03/20 10/03/20 22:29 22:30 22:30 MCV 84.1 MCH 28.0 MCHC 33.3 RDW 16.8 H Plt Count 223 MPV 10.9 Immature Gran % (Auto) 1.2 H Neut % (Auto) 66.7 Lymph % (Auto) 20.0 Wilkinson % (Auto) 11.6 H Eos % (Auto) 0.4 Baso % (Auto) 0.1 Lymph # (Auto) 3.3 Wilkinson # (Auto) 1.9 H Eos # (Auto) 0.1 Baso # (Auto) 0.0 Abs Immat Gran (auto) 0.20 H Absolute Neuts (auto) 10.9 H Absolute Nucleated RBC 0.030 H Nucleated RBC % (auto) 0.2 Smear Tech's Comments VERIFIED PT 14.5 H INR 1.2 H APTT 29.3 D-Dimer 2274 Anion Gap Estim Creat Clear Calc Estimated GFR POC Glucose Random Glucose Lactic Acid Lactic Acid Fup @ 2Hr Calcium Total Bilirubin AST ALT Alkaline Phosphatase Ammonia Total Creatine Kinase Troponin I High Sens B-Natriuretic Peptide Total Protein Albumin Specimen Comment Acetaminophen Coronavirus (PCR) NEGATIVE Hep Bs Antigen Hep Bs Antibody Hep B Core Total Ab Hepatitis C Ab (EIA) Influenza Type A (PCR) NEGATIVE Influenza Type B (PCR) NEGATIVE RSV RNA Qual (PCR) NEGATIVE 10/03/20 10/03/20 10/04/20 23:42 23:47 03:08 MCV MCH MCHC RDW Plt Count MPV Immature Gran % (Auto) Neut % (Auto) Lymph % (Auto) Wilkinson % (Auto) Eos % (Auto) Baso % (Auto) Lymph # (Auto) Wilkinson # (Auto) Eos # (Auto) Baso # (Auto) Abs Immat Gran (auto) Absolute Neuts (auto) Absolute Nucleated RBC Nucleated RBC % (auto) Smear Tech's Comments PT INR APTT D-Dimer Anion Gap 17 Estim Creat Clear Calc 35.8 Estimated GFR 34 POC Glucose Random Glucose 72 D Lactic Acid Lactic Acid Fup @ 2Hr 2.4 H* Calcium 7.6 L D Total Bilirubin 1.0 AST 6254 H ALT 1006 H Alkaline Phosphatase 167 H D Ammonia Total Creatine Kinase Troponin I High Sens B-Natriuretic Peptide Total Protein 6.5 Albumin 3.5 Specimen Comment DELAY Acetaminophen Coronavirus (PCR) Hep Bs Antigen Hep Bs Antibody Hep B Core Total Ab Hepatitis C Ab (EIA) Influenza Type A (PCR) Influenza Type B (PCR) RSV RNA Qual (PCR) 10/04/20 10/04/20 10/04/20 03:08 03:08 03:08 MCV MCH MCHC RDW Plt Count MPV Immature Gran % (Auto) Neut % (Auto) Lymph % (Auto) Wilkinson % (Auto) Eos % (Auto) Baso % (Auto) Lymph # (Auto) Wilkinson # (Auto) Eos # (Auto) Baso # (Auto) Abs Immat Gran (auto) Absolute Neuts (auto) Absolute Nucleated RBC Nucleated RBC % (auto) Smear Tech's Comments PT INR APTT D-Dimer Anion Gap Estim Creat Clear Calc Estimated GFR POC Glucose Random Glucose Lactic Acid Lactic Acid Fup @ 2Hr Calcium Total Bilirubin AST ALT Alkaline Phosphatase Ammonia 74 H Total Creatine Kinase Troponin I High Sens 258.8 H B-Natriuretic Peptide Total Protein Albumin Specimen Comment Acetaminophen Coronavirus (PCR) Hep Bs Antigen Negative Hep Bs Antibody NONREACTIVE Hep B Core Total Ab Nonreactive Hepatitis C Ab (EIA) Reactive H Influenza Type A (PCR) Influenza Type B (PCR) RSV RNA Qual (PCR) 10/04/20 03:08 MCV MCH MCHC RDW Plt Count MPV Immature Gran % (Auto) Neut % (Auto) Lymph % (Auto) Wilkinson % (Auto) Eos % (Auto) Baso % (Auto) Lymph # (Auto) Wilkinson # (Auto) Eos # (Auto) Baso # (Auto) Abs Immat Gran (auto) Absolute Neuts (auto) Absolute Nucleated RBC Nucleated RBC % (auto) Smear Tech's Comments PT INR APTT D-Dimer Anion Gap Estim Creat Clear Calc Estimated GFR POC Glucose Random Glucose Lactic Acid Lactic Acid Fup @ 2Hr Calcium Total Bilirubin AST ALT Alkaline Phosphatase Ammonia Total Creatine Kinase 176 H Troponin I High Sens B-Natriuretic Peptide Total Protein Albumin Specimen Comment Acetaminophen 1 Coronavirus (PCR) Hep Bs Antigen Hep Bs Antibody Hep B Core Total Ab Hepatitis C Ab (EIA) Influenza Type A (PCR) Influenza Type B (PCR) RSV RNA Qual (PCR) Imaging Radiologist's Impressions: Impressions Venous Duplex 10/03/20 21:42 IMPRESSION: No DVT demonstrated in either lower extremity. Chest X-Ray 10/03/20 21:43 IMPRESSION: Commonly reported imaging features of Covid 19 or viral pneumonia are now present with multifocal diffuse patchy infiltrates. Other processes such as influenza pneumonia or organizing pneumonia, as can be seen with drug toxicity and connective tissue disease, can cause a similar imaging pattern. Abdomen/Pelvis CT 10/04/20 02:08 IMPRESSION: Extensive groundglass opacification bilaterally. 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 No CT evidence for acute traumatic injury within the thorax, abdomen or pelvis. Automated exposure control (Care Dose) Adjustment of the mA and/or kv according to patient size (this includes techniques or standardized protocols for targeted exams where dose is matched to indication / reason for exam; i.e. extremities or head). Cervical Spine CT 10/04/20 02:08 IMPRESSION: No evidence for acute intracranial injury. No evidence for acute injury to the cervical spine. Automated exposure control (Care Dose) Adjustment of the mA and/or kv according to patient size (this includes techniques or standardized protocols for targeted exams where dose is matched to indication / reason for exam; i.e. extremities or head). Head CT 10/04/20 02:08 IMPRESSION: No evidence for acute intracranial injury. No evidence for acute injury to the cervical spine. Automated exposure control (Care Dose) Adjustment of the mA and/or kv according to patient size (this includes techniques or standardized protocols for targeted exams where dose is matched to indication / reason for exam; i.e. extremities or head). Chest CT 10/04/20 02:09 IMPRESSION: Extensive groundglass opacification bilaterally. 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 No CT evidence for acute traumatic injury within the thorax, abdomen or pelvis. Automated exposure control (Care Dose) Adjustment of the mA and/or kv according to patient size (this includes techniques or standardized protocols for targeted exams where dose is matched to indication / reason for exam; i.e. extremities or head). Assessment and Plan (1) Syncope: Status: Acute 45-year-old female with a past medical history of asthma, IV drug abuse, diabetes on insulin pump presented to the hospital after a syncopal episode. Syncope: Currently unclear etiology. EKG showed no evidence of bradycardia are blocks. Will obtain echocardiogram. Fall precautions. Orthostatic vitals Nonfocal examination. CT head showed no acute findings. CT C-spine showed no acute findings. ? Hypoglycemia: Patient's random glucose on presentation was 72. Improving. Diabetes: Pt reports PUMP was not working properly yesterday-> And She repleced the needle and since its been working fine; Will continue her home insulin pump. Monitor FSGs Elevated troponins: Patient denies any chest pain. EKG nonischemic. Follow-up troponin trending down. Echocardiogram as mentioned. Cardiology notified- recommended to start the patient on heparin drip. Cardiology consult for further evaluation Multifocal pneumonia: Patient's rapid COVID-19 negative. Question COVID versus aspiration pneumonitis. Will empirically give the patient on Decadron, ceftriaxone azithromycin and Flagyl. ID consult for further recommendations. CT shows extensive ground-glass opacifications. pt reported that she Sniffed heroin prior to episode. Pulm consult Utox pending. Acute kidney injury: Likely in setting of dehydration. Gentle IV fluids. Hyponatremia: Appears to be low solute state. Gentle IV fluids-normal saline. Follow-up levels. Lactic acidosis: IV fluids. Elevated liver enzymes: AST- 6254,ALT -1006. Alk-phos 167. T bili 1.0. CPK was 176. Patient has a history of hep C. Given history of IVDA-will obtain U tox to rule out any cocaine contributing to the liver toxicity.(offload patient was cocaine positive in the past.) Will also obtain Tylenol and salicylates levels. Acute hepatitis panel sent. Gastroenterology Dr. serrato was notified who mentioned admission to the [facility] and to be evaluated in the morning. Follow-up liver enzymes. Normal liver size and attenuation; normal gallbladder. DVT prophylaxis: Patient on heparin drip Code status: Full code
[2020-10-04] MEDS: metroNIDAZOLE/NS 500 MG/100 ML PIGGYBACK 100 MG IV ×2 (06:17→15:10)
[2020-10-04 06:53] LABS: Amphetamine Screen Urine Not Detected (Not Detect); Barbiturates, Urine Not Detected (Not Detect); Benzodiazepines Screen Urine Not Detected (Not Detect); Cannabinoid Screen Urine Not Detected (Not Detect); Cocaine Screen Urine Not Detected (Not Detect); Opiate Screen Urine POSITIVE (Not Detect); Phencyclidine Screen Urine Not Detected (Not Detect)
[2020-10-04] MEDS: 0.9 % Sodium Chloride 1,000 ML 50 ML IVCONT (07:27)
--- NOTE | 2020-10-04 07:30 | CA_ITS ---
Transthoracic Echocardiogram Patient (Last, First, Middle): Jenni Colon, Gender: Female Date of : 1975 Age: 45 Procedure Date: 10/04/2020 Procedure Type: Transthoracic Echocardiogram Location: ER Height: 152.4 cm Weight: 63.5 kg BSA: 1.60 m2 Heart Rate: bpm BP: 110 / 62 mmHg Herbicide Service Sales Representative: Referring MD: Francis Ibrahim MD Symptoms: high troponin Study Quality: Fair ECG Rhythm: Sinus Conclusions: - 1. Normal LV systolic function grade 1 diastolic dysfunction 2. Enlarged RV with systolic dysfunction, consistent with acute cor pulmonale 3. [id number] tricuspid regurgitation 4. Borderline elevated right ventricular systolic pressure with mildly elevated right atrial pressure 5. No pericardial effusion Findings Left Ventricle Normal left ventricular size, thickness, and systolic function. The visually estimated ejection fraction is between 60-65%. Spectral Doppler is indicative of an impaired relaxation filling pattern. E/E prime ratio is <8, consistent with normal filling pressures. Right Ventricle Moderately increased right ventricular cavity size. There is mildly decreased right ventricular systolic function. Atria The left atrium is normal in size. Interatrial shunt cannot be excluded. The right atrium is likely dilated. Aortic Valve Normal aortic valve structure and function. There is no aortic valve stenosis. There is no aortic valve regurgitation. Mitral Valve Normal mitral valve structure and function. There is trace mitral valve regurgitation. There is no mitral valve stenosis. Pulmonic Valve The pulmonic valve was not well visualized. Tricuspid Valve Likely normal tricuspid valve structure and function. There is mild to moderate tricuspid valve regurgitation. Mildly elevated right atrial pressure. RV systolic pressure is borderline elevated Great Vessels All visible segments of the aorta are normal in size. Venous The inferior vena cava is moderately dilated and collapses less than 50% with inspiration. Pericardium/Pleural There is no evidence of pericardial effusion. Prior Study Comparison Changes noted compared to prior study dated: 05/31/2016. RV is enlarged with some systolic dysfunction, consistent with acute cor pulmonale Measurements 2D Linear Measurements IVSd: 0.99 0.6-0.9/0.6-1.0 cm LVIDd: 3.90 3.9-5.3/4.2-5.9 cm LVIDd Index: 2.44 2.4-3.2/2.2-3.1 cm/m2 LVIDs: 2.48 2.0-3.6 cm LVPWd: 1.01 0.7-1.1 cm Ao Root: 2.60 2.1-3.5 cm LA Diam: 2.60 2.7-3.8/3.0-4.0 cm LAIDs Index: 1.63 1.5-2.3 cm/m2 LV Mass: 151.58 67-162/88-224 g LV Mass Index: 94.74 43-95/49-115 g/m2 LVOT Diam: 1.90 3.0+(-)1.3 cm Mitral Valve MV Pk E: 0.98 MV PK A: 1.07 MV Decel Time: 218.00 E/A: 0.90 E'Lateral: 10.10 E'Medial: 10.70 E/E' Med: 9.10 E/E' Lat: 9.70 PHT: 64.00 MVA PHT: 3.44 Decel Fajardo: 4.47 Aortic Valve AoV Pk Mahesh: 1.75 AoV Mn Mahesh: 1.17 AoV VTI: 0.34 AoV Pk Grad: 12.00 Aov Mn Grad: 6.00 WHIT Cont.VTI: 2.12 LVOT LVOT Pk Mahesh: 1.34 LVOT Mn Mahesh: 0.91 LVOT VTI: 0.26 LVOT Pk Grad: 7.00 LVOT Mn Grad: 4.00 LVOT Diam: 1.90 LVOT Area: 2.84 Diastolic Function MV Pk E: 0.98 MV Pk A: 1.07 E/A: 0.90 E'Medial: 10.70 E/E' Med: 9.10 E' Laterial: 10.10 E/E' Lat: 9.70 Tricuspid Valve TR Pk Mahesh: 2.80 TR Pk Grad: 31.00 RA Press: 8.00 RVSP: 39.00 Great Vessels Aorta Ao Root-2D: 2.60 2.0-3.7 cm Ao Asc: 3.10 2.1-3.4 cm Pulmonary Valve PV Pk Mahesh: 1.21 Peak PV Grad: 6.00 Updated in Other Vendor System with Status of Final Souleymane Alvarenga MD electronically signed on 10/04/2020 12:52:20 PM with status of Final
[2020-10-04 07:31] LABS: INTERNATIONAL NORM RATIO 1.3 (0.9-1.1); Prothrombin Time 15.2 SEC (10.8-13.0)
[2020-10-04 07:34] LABS: ~Lactic Acid-LAB USE ONLY 1.9 mmol/L (0.5-2.0)
[2020-10-04 07:37] LABS: MANUAL DIFF FLAG NO
[2020-10-04 07:42] LABS: Basophils Percent Auto 0.1 % (0-2); Hematocrit 31.9 % (37-47); Imm Gran Abs Auto 0.16 X10*3/uL (0.00-0.03); Imm Gran Pct Auto 1.5 % (0.0-0.4); Lymphocytes Absolute Auto 0.9 X10*3/uL (1.2-4.9); Lymphocytes Percent Auto 8.1 % (20-40); Mean Corpuscular HGB Conc 34.5 g/dl (31.0-35.0); Mean Corpuscular Hemoglobin 28.6 pg (27.0-33.0); Mean Corpuscular Volume 82.9 fL (80-98); Mean Platelet Volume 12.2 fL (9.4-12.3); Monocytes Absolute Auto 0.3 X10*3/uL (0.1-1.2); Monocytes Percent Auto 2.7 % (2-11); NRBC Pct Auto 0.2 /100WBC (0.0-0.2); Neutrophils Absolute Auto 9.3 X10*3/uL (2.0-8.3); Neutrophils Percent Auto 87.6 % (45-73); Platelet Count 190 X10*3/uL (160-400); Red Blood Count 3.85 X10*6/uL (4.20-5.50); Red Cell Distribution Width 16.9 % (11.0-16.0); White Blood Count 10.6 X10*3/uL (4.8-10.8)
[2020-10-04 08:01] LABS: Acetaminophen LAB < 1 mcg/mL (<30); Salicylate < 5.0 mg/dL (15-30)
[2020-10-04] MEDS: Insulin Lispro 100 UNIT/ML 3 ML VIAL SUBCUT ×4 (08:06→21:47)
[2020-10-04 08:08] VITALS: BP 114/61; PULSE 89; RESP 18; TEMP 37.1; O2SAT 95
[2020-10-04] MEDS: 0.9 % Sodium Chloride Flush 3 ML SYRINGE IVFLUSH ×6 (08:10→21:52)
[2020-10-04 08:11] LABS: Anion Gap 18 (12-20); Blood Urea Nitrogen 29 mg/dL (9-16); Calcium 7.4 mg/dL (8.4-10.2); Carbon Dioxide 28 mmol/L (22-29); Chloride 84 mmol/L (96-108); Creatinine Clr Calc Pharmacy 49.2; Estimated Glomerular Filt Rate 49; Glucose Random 294 mg/dL (60-115); Potassium 4.7 mmol/L (3.3-5.1); Sodium 125 mmol/L (135-145)
[2020-10-04 08:13] LABS: HBS Num1 2.26 mIU/mL (0-7.99); HBc Num1 0.11 S/CO (0.00-0.79); Hepatitis B Core Antibody Nonreactive (Nonreactive); ~HepC Num1 13.74 S/CO (0.00-0.79); ~Hepatitis B Surface Antibody NONREACTIVE (Nonreactive); ~Hepatitis C Antibody Reactive (Nonreactive)
[2020-10-04 08:36] LABS: Hepatitis B Surface Antigen Negative (Negative)
--- NOTE | 2020-10-04 08:53 | P.CNGI_ITS ---
History of Present Illness Data of Consult Service Date: 10/04/20 Requesting physician: Eddy Bowers Primary Care Provider: Unknown Physician HPI Reason for consult: abn LFT 45-year-old female with a past medical history of asthma, diabetes on insulin pump, history of IV drug abuse relapse in August who I am seeing for assessment of abn LFT. She initially presented to the hospital with syncope. EMS was called and she was noted to be v hypoxic, further work up in Ed with multifocal infiltrates, covid testing neg but labs with multiple abnormalities with raised trops and transaminases. She has noted nasal congestion and general stuffiness with some shortness of breath but denies chest pain. SHE DENIES abdominal pain, diarrhea or constipation and no rectal bleeding or melena. denies covid exposure, was on methadone program but says she relapsed back to heroin use (snorting) due to early termination. She has untreated hep c. She says she never takes tylenol and not been taking herbs, supplements or nsaids. No FH of liver disease. No alcohol use. Hep B neg, Hep A is pending. Saw cardiology with echo revealing acute cor pulmonale and right heart strain, subsequent CTA and VQ scan remain neg for PTE> Review of Systems Review of Systems: Yes all other systems are reviewed and are negative Constitutional: Constitutional: Reports as per HPI, Reports no additional constitutional complaints, Denies body ache(s), Denies chills and Denies fever(s) Eyes: Eyes: Reports as per HPI and Reports no additional eye complaints ENT: Reports system reviewed and no additional complaints, except as documented, Reports as per HPI and Reports nasal congestion (mild off and on ) Cardiovascular: Cardiovascular: Reports as per HPI, Reports no additional cardiovascular complaints, Denies chest pain, Denies chest pain at rest, Reports syncope (prior to admission . ), Denies irregular heart rhythm, Reports Loss of Consciousness, Denies palpitations, Reports dyspnea and Reports dyspnea on exertion Respiratory: Respiratory: Reports as per HPI, Reports no additional respiratory complaints, Reports cough (occasional ), Reports excessive phlegm production, Reports dyspnea, Reports dyspnea on exertion and Reports wheezing (h/o br asthma, controlled ) Gastrointestinal: Gastrointestinal: Reports as per HPI, Reports no additional gastrointestinal complaints, Denies abdominal pain and Denies nausea Musculoskeletal: Musculoskeletal: Reports no additional musculoskeletal complaints and Reports as per HPI Neurologic: Reports system reviewed and no additional complaints, except as documented, Reports as per HPI and Reports syncope (prior to admission . ) Psychiatric: Psychiatric: Reports no additional psychiatric complaints and Reports as per HPI Endocrine: Endocrine: Reports no additional endocrine complaints and Denies palpitations Hematologic/Lymphatic: Hematologic/Lymphatic: Reports no additional hematologic/lymphatic complaints Allergic/Immunologic: Allergic/Immunologic: Reports no additional allergic/immunologic complaints and Reports wheezing (h/o br asthma, controlled ) [facility] Past Medical History Medical History Asthma Diabetic acetonemia Drug abuse in remission Pneumonia Pneumonia Post-tubal ligation syndrome Social History Social History Smoking Status: Current every day smoker Smoked in Last 30 Days: No Advance Directives: No Advance Directives Information Provided: Yes service: No Current occupational status: unemployed Meds Allergies Allergy/AdvReac Type Severity Reaction Status Date / Time ibuprofen [IBUPROFEN] Allergy Unknown LIGHTHEADED;FEELS Verified 06/14/20 18:57 LIKE CHEST IS CLOSING IN;CLAUSTROPHOBIC Active Medications: Current Medications Generic Name Dose Route Start Last Admin Trade Name Freq PRN Reason Stop Dose Admin Albuterol Sulfate 2 puff 10/04/20 05:14 Albuterol Sulfate 90 Mcg 8 Gm Inhaler INHALE Q6H PRN wheezing Albuterol/Ipratropium 3 ml 10/04/20 05:14 Albuterol/Iprat 2.5/0.5mg 3 Ml Ampul.Neb INHALE RQID PRN wheezing Azithromycin 500 mg 10/04/20 21:00 Azithromycin 500 Mg Tablet PO Q24H SILKE Benzonatate 100 mg 10/04/20 09:00 Benzonatate 100 Mg Capsule PO TID SILKE Dexamethasone 6 mg 10/04/20 09:00 Dexamethasone 6 Mg Tablet PO DAILY SILKE Heparin Sodium/Sodium Chloride 25,000 unit in 250 mls @ 0 mls/hr 10/04/20 03:45 10/04/20 04:25 IVCONT 14 units/kg/hr .Q0M SILKE 8.89 mls/hr Administration Protocol Per Protocol Ceftriaxone Sodium 1 gm/ 50 mls @ 100 mls/hr 10/04/20 21:00 Sodium Chloride IV Q24H [facility] Metronidazole 500 mg in 100 mls @ 100 mls/hr 10/04/20 06:00 10/04/20 07:29 Flagyl IV Infused Q8H [facility] Infusion Sodium Chloride 1,000 mls @ 50 mls/hr 10/04/20 05:30 10/04/20 07:27 Ns IVCONT 50 mls/hr .Q20H [facility] Administration Insulin Glargine 20 unit 10/04/20 21:00 Insulin Glargine,Hum.Rec.Anlog 100 Unit/Ml 10 Ml Vial SUBCUT BEDTIME [facility] Insulin Human Lispro 0 unit 10/04/20 07:30 10/04/20 08:06 Insulin Lispro 100 Unit/Ml 3 Ml Vial SUBCUT 8 unit QIDACHS [facility] Administration Protocol Sodium Chloride 3 ml 10/04/20 08:00 10/04/20 08:10 0.9 % Sodium Chloride Flush 3 Ml Syringe IVFLUSH 3 ml QSHIFT [facility] Administration Sodium Chloride 3 ml 10/04/20 08:00 10/04/20 08:10 0.9 % Sodium Chloride Flush 3 Ml Syringe IVFLUSH 3 ml QSHIFT [facility] Administration Home Medications Medication Instructions Recorded Confirmed Last Taken Type albuterol sulfate 2 puff INHALATION Q6H PRN 10/04/20 10/04/20 Unknown History aspirin 81 mg PO DAILY 10/04/20 10/04/20 10/03/20 History fluticasone propionate [Flovent 2 puff PO BID 10/04/20 10/04/20 10/03/20 History HFA] insulin lispro [Admelog U-100 80 unit SUBCUT DAILY 10/04/20 10/04/20 10/04/20 History Insulin lispro] ipratropium-albuterol 1 vial INHALATION Q6H PRN 10/04/20 10/04/20 Unknown History lovastatin 1 tab PO DAILY 10/04/20 10/04/20 10/03/20 History nystatin 5 ml PO QID 10/04/20 10/04/20 10/03/20 History subcutaneous insulin pump 10/04/20 10/04/20 Unknown History sumatriptan succinate 50 mg PO DAILY PRN 10/04/20 10/04/20 Unknown History Physical Exam Vital Signs: Vital Signs: Last Vital Signs Temp 98.7 F 10/04/20 08:08 Pulse 89 10/04/20 08:08 Resp 18 10/04/20 08:08 BP 114/61 10/04/20 08:08 Pulse Ox 95 10/04/20 08:08 Body Mass Index 27.3 Const: General: cooperative, healthy appearing, comfortable, no acute distress, well developed, alert and awake Nutritional Appearance: overweight Orientation/consciousness: patient oriented x3 HENMT: Head: Yes normal to inspection, Yes No palpable skull fracture present, Yes normocephalic, Yes atraumatic, No abrasion, No Eric's sign, No cranial bruits, No hematoma, No laceration, No occipital foramen tenderness, No palpable skull fracture, No raccoon eyes, No Temporal artery tenderness present and No periorbital ecchymosis General nose exam: No nasal polyps present and No nasal discharge present Face and sinus: Yes sinuses nontender Mouth: Normal oral and palatal mucosa present and oropharynx normal Throat: Yes posterior oropharynx normal Eyes: General: appearance normal, both eyes and all related structures Neck: Neck: Yes normal visual inspection, Yes full ROM, Yes no lymphadenopathy, Yes no meningeal signs, Yes trachea midline, Yes supple, No tender and Yes no JVD Thyroid: Thyroid normal Chest: Chest palpation & inspection: normal inspection of the chest and normal palpation of entire chest wall Resp: Effort & Inspection: normal respiratory effort and able to speak in complete sentences Auscultation: crackles (HAS A FEW FINE CRACKLES , OVER THE MID CHEST AND BASES ON BOTH SIDES . ), wheezes (Diffuse) expiratory wheezes and diminished lung sounds Cardio: Jugular venous distension: no JVD Palpation: normal PMI Rate: regular rate Rhythm: regular rhythm Heart sounds: S1 normal heart sound present, S2 normal heart sound present, no gallops and no murmurs Peripheral pulses: Peripheral pulses 2+ throughout GI: Inspection: Yes normal to inspection and No abdominal wall ecchymosis Palpation (GI): Soft to palpation, not firm, nontender, no guarding, not rigid, No hepatosplenomegaly present and no masses Auscultation: normal bowel sounds : General: No CVA tenderness and Yes no CVA tenderness Back/Spine/Pelvis: Back: no CVA tenderness, No CVA tenderness and No back tenderness Thoracic/Lumbar Spine: thoracic and lumbar spine normal to inspection Skin: General skin exam: no rashes or lesions noted and elasticity normal Neuro: General: patient oriented x3, moves all extremities, no meningeal signs, no focal motor deficits and CN's II-XI intact bilaterally Cranial ner ves: Yes CN's II-XII intact bilaterally Extrem: Other: Bilateral lower extremity swelling with more on the right. General: Yes normal to inspection, Yes no clubbing, cyanosis or edema, Yes no calf tenderness and No venous stasis dermatitis Psych: Appearance: grossly normal, well kempt and not disheveled Speech and movement: Normal speech and movement present Results Labs CBC & Chem 7: 10/04/20 07:04 10/04/20 07:05 Labs: Short CBC 10/03/20 10/04/20 10/04/20 Range/Units 22:30 07:04 07:04 WBC 16.3 H Cancelled 10.6 (4.8-10.8) X10*3/uL Hgb 11.5 L Cancelled 11.0 L (12.0-16.0) g/dl Hct 34.5 L Cancelled 31.9 L (37-47) % Plt Count 223 Cancelled 190 (160-400) X10*3/uL BMP 10/03/20 10/04/20 23:42 07:05 Sodium 128 L 125 L Potassium 3.4 4.7 D Chloride 82 L 84 L Carbon Dioxide 32 H 28 BUN 30 H D 29 H Creatinine 1.65 H 1.20 Calcium 7.6 L D 7.4 L Cardiac Enzymes 10/04/20 Range/Units 03:08 Total Creatine Kinase 176 H (26-140) U/L Liver Function 10/03/20 Range/Units 23:42 Total Bilirubin 1.0 (0.0-1.0) mg/dL AST 6254 H (5-31) U/L ALT 1006 H (0-31) U/L Alkaline Phosphatase 167 H D (39-117) U/L Albumin 3.5 (3.5-5.0) g/dL Assessment and Plan (1) Transaminitis: Status: Acute (2) Multiorgan failure: Status: Acute 1/ Acute hypoxemic respiratory failure with acute right heart failure and elevated liver enzymes, suspect this could be due to hepatic congestion nutmeg liver , ddx; acute viral syndrome inc HIV, hep A, CMV< EBV< HSV, budd chiari syndrome, could still be covid 19 even though serology is negative. MAy also be related to drug use and inhaling contaminated heroin, so fungal or other organisms may be involved. Chronic thromboembolic disease with micro thrombi or primary pulmonary HTN may also be possible. Pulmonary vasculitis such as wegners and [place] also possible. PLAN: 1/ recommend rechecking covid 19 PCR, 2/ add LDH 3/ US doppler to check for budd chiari 4/ further cardiac and ID w/u as doing, pulm consult for assessment of primary or secondary pulm HTN 5/ check c-ANCA, p-anca, NATALIA and UA (to check for pulmono renal syndrome)
[2020-10-04] MEDS: Benzonatate 100 MG CAPSULE PO ×3 (10:22→20:50)
[2020-10-04] MEDS: dexAMETHasone 6 MG TABLET PO (10:22)
--- NOTE | 2020-10-04 10:48 | P.CONCA_ITS ---
History of Present Illness History of Present Illness Date of Service: 10/04/20 Requesting physician: Devin [facility] Consult reason: shortness of breath, troponin elevation and other (Elevated BNP) Chief complaint: syncope Narrative: We are asked to see Jenni in cardiology consultation today for elevated troponin and BNP as well as hypoxia. She is a 45-year-old woman with prior history of asthma, diabetes on insulin pump prior history of IV drug abuse with recent relapse. Patient present in the hospital because she passed out at home and was not looking good and her called the ambulance. Patient says starting Sunday midnight she was getting increasing shortness of breath, she thought that this was related to or impaired sugar and diabetic ketoacidosis. She had a problem with her insulin pump and she is trying to adj usted her sugars were in the 600 range. She subsequently continued to get progressively more short of breath. She had no chest discomfort. No wheezing. She does have mucus. No fever or chills. At home then she adjusted her insulin pump and subsequently she passed out in between noon to 15:00. Her who noticed a notice that she had blue lips, she self observe that her nails were turning blue. She subsequently started walking around in the nail current improved. However subsequently she passed out. She came to the emergency room when she was markedly hypoxemic. She was then put on high rate oxygen and gradually her oxygenation is improved. Currently on 4 L with oxygenation the low 90s. A chest x-ray is consistent with bilateral ground-glass opacities. A COVID status is negative. She is also noted to have significantly elevated LFTs, noted to have lactic acidosis, acute kidney injury, elevated troponins which are down trending now as well as elevated BNP. She has not had any leg edema, orthopnea, belly distension prior to episodes of shortness of breath at home. She says oxygen status improved after she coughed up a mucous plug. Review of Systems Constitutional: Constitutional: Denies body ache(s), Denies chills and Denies fever(s) Cardiovascular: Cardiovascular: Denies chest pain, Reports Loss of Consciousness, Denies palpitations, Reports dyspnea and Reports dyspnea on exertion Respiratory: Respiratory: Reports excessive phlegm production, Reports dyspnea and Reports dyspnea on exertion Gastrointestinal: Gastrointestinal: Reports no additional gastrointestinal complaints Genitourinary: Genitourinary: Reports no additional female genitourinary complaints Musculoskeletal: Musculoskeletal: Reports no additional musculoskeletal complaints Neurologic: Reports system reviewed and no additional complaints, except as documented Endocrine: Endocrine: Reports no additional endocrine complaints and Denies palpitations Hematologic/Lymphatic: Hematologic/Lymphatic: Reports no additional hematologic/lymphatic complaints Allergic/Immunologic: Allergic/Immunologic: Reports no additional allergic/immunologic complaints [facility] Past Medical History Medical History Asthma 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 Social History Social History Smoking Status: Current every day smoker Smoked in Last 30 Days: No Advance Directives: No Advance Directives Information Provided: Yes Meds Allergies Allergy/AdvReac Type Severity Reaction Status Date / Time ibuprofen [IBUPROFEN] Allergy Unknown LIGHTHEADED;FEELS Verified 06/14/20 18:57 LIKE CHEST IS CLOSING IN;CLAUSTROPHOBIC Active Medications: Current Medications Generic Name Dose Route Start Last Admin Trade Name Freq PRN Reason Stop Dose Admin Albuterol Sulfate 2 puff 10/04/20 05:14 Albuterol Sulfate 90 Mcg 8 Gm Inhaler INHALE Q6H PRN wheezing Albuterol/Ipratropium 3 ml 10/04/20 05:14 Albuterol/Iprat 2.5/0.5mg 3 Ml Ampul.Neb INHALE RQID PRN wheezing Azithromycin 500 mg 10/04/20 21:00 Azithromycin 500 Mg Tablet PO Q24H SILKE Benzonatate 100 mg 10/04/20 09:00 10/04/20 10:22 Benzonatate 100 Mg Capsule PO 100 mg TID SILKE Administration Dexamethasone 6 mg 10/04/20 09:00 10/04/20 10:22 Dexamethasone 6 Mg Tablet PO 6 mg DAILY SILKE Administration Heparin Sodium/Sodium Chloride 25,000 unit in 250 mls @ 0 mls/hr 10/04/20 03:45 10/04/20 04:25 IVCONT 14 units/kg/hr .Q0M SILKE 8.89 mls/hr Administration Protocol Per Protocol Ceftriaxone Sodium 1 gm/ 50 mls @ 100 mls/hr 10/04/20 21:00 Sodium Chloride IV Q24H SILKE Metronidazole 500 mg in 100 mls @ 100 mls/hr 10/04/20 06:00 10/04/20 07:29 Flagyl IV Infused Q8H [facility] Infusion Sodium Chloride 1,000 mls @ 50 mls/hr 10/04/20 05:30 10/04/20 07:27 Ns IVCONT 50 mls/hr .Q20H [facility] Administration Insulin Glargine 20 unit 10/04/20 21:00 Insulin Glargine,Hum.Rec.Anlog 100 Unit/Ml 10 Ml Vial SUBCUT BEDTIME [facility] Insulin Human Lispro 0 unit 10/04/20 07:30 10/04/20 08:06 Insulin Lispro 100 Unit/Ml 3 Ml Vial SUBCUT 8 unit QIDACHS [facility] Administration Protocol Sodium Chloride 3 ml 10/04/20 08:00 10/04/20 08:10 0.9 % Sodium Chloride Flush 3 Ml Syringe IVFLUSH 3 ml QSHIFT [facility] Administration Sodium Chloride 3 ml 10/04/20 08:00 10/04/20 08:10 0.9 % Sodium Chloride Flush 3 Ml Syringe IVFLUSH 3 ml QSHIFT [facility] Administration Home Medications Medication Instructions Recorded Confirmed Last Taken Type albuterol sulfate 2 puff INHALATION Q6H PRN 10/04/20 10/04/20 Unknown History aspirin 81 mg PO DAILY 10/04/20 10/04/20 10/03/20 History fluticasone propionate [Flovent 2 puff PO BID 10/04/20 10/04/20 10/03/20 History HFA] insulin lispro [Admelog U-100 80 unit SUBCUT DAILY 10/04/20 10/04/20 10/04/20 History Insulin lispro] ipratropium-albuterol 1 vial INHALATION Q6H PRN 10/04/20 10/04/20 Unknown History lovastatin 1 tab PO DAILY 10/04/20 10/04/20 10/03/20 History nystatin 5 ml PO QID 10/04/20 10/04/20 10/03/20 History subcutaneous insulin pump 10/04/20 10/04/20 Unknown History sumatriptan succinate 50 mg PO DAILY PRN 10/04/20 10/04/20 Unknown History Physical Exam Vital Signs: Vital Signs: Last Vital Signs Temp 98.7 F 10/04/20 08:08 Pulse 89 10/04/20 08:08 Resp 18 10/04/20 08:08 BP 114/61 10/04/20 08:08 Pulse Ox 95 10/04/20 08:08 Body Mass Index 27.3 Const: General: cooperative, comfortable, no acute distress, alert and awake Nutritional Appearance: overweight Orientation/consciousness: patient yung nahomi x3 HENMT: Head: Yes normocephalic and Yes atraumatic Neck: Neck: Yes trachea midline, Yes supple and Yes no JVD Resp: Effort & Inspection: normal respiratory effort Auscultation: no crack les and diminished lung sounds Cardio: Jugular venous distension: no JVD Palpation: normal PMI Rate: regular rate Rhythm: regular rhythm Heart sounds: S1 normal heart sound present and S2 normal heart sound present GI: Auscultation: normal bowel sounds Skin: General skin exam: no rashes or lesions noted Neuro: General: patient oriented x3 and no focal motor deficits Extrem: General: Yes no clubbing, cyanosis or edema Psych: Appearance: grossly normal Results Labs and Meds Result diagrams: 10/04/20 07:04 10/04/20 07:05 Lab results: Laboratory Results - last 24 hr 10/03/20 10/03/20 10/03/20 21:20 22:29 22:29 WBC RBC Hgb Hct MCV MCH MCHC RDW Plt Count MPV Immature Gran % (Auto) Neut % (Auto) Lymph % (Auto) [place] % (Auto) Eos % (Auto) Baso % (Auto) Lymph # (Auto) [place] # (Auto) Eos # (Auto) Baso # (Auto) Abs Immat Gran (auto) Absolute Neuts (auto) Absolute Nucleated RBC Nucleated RBC % (auto) Smear Tech's Comments PT INR APTT D-Dimer Sodium Potassium Chloride Carbon Dioxide Anion Gap BUN Creatinine Estim Creat Clear Calc Estimated GFR POC Glucose 92 Random Glucose Lactic Acid 2.9 H* Lactic Acid Fup @ 2Hr Lactic Acid Fup @ 4Hr Calcium Total Bilirubin AST ALT Alkaline Phosphatase Ammonia Total Creatine Kinase Troponin I High Sens 372.6 H B-Natriuretic Peptide 680 H Total Protein Albumin Specimen Comment Salicylates Urine Opiates Screen Acetaminophen Ur Barbiturates Screen Ur Phencyclidine Scrn Ur Amphetamines Screen U Benzodiazepines Scrn Urine Cocaine Screen U Marijuana (THC) Screen Coronavirus (PCR) Hep Bs Antigen Hep Bs Antibody Hep B Core Total Ab Hepatitis C Ab (EIA) Influenza Type A (PCR) Influenza Type B (PCR) RSV RNA Qual (PCR) 10/03/20 10/03/20 10/03/20 22:29 22:30 22:30 WBC 16.3 H RBC 4.10 L Hgb 11.5 L Hct 34.5 L MCV 84.1 MCH 28.0 MCHC 33.3 RDW 16.8 H Plt Count 223 MPV 10.9 Immature Gran % (Auto) 1.2 H Neut % (Auto) 66.7 Lymph % (Auto) 20.0 [place] % (Auto) 11.6 H Eos % (Auto) 0.4 Baso % (Auto) 0.1 Lymph # (Auto) 3.3 [place] # (Auto) 1.9 H Eos # (Auto) 0.1 Baso # (Auto) 0.0 Abs Immat Gran (auto) 0.20 H Absolute Neuts (auto) 10.9 H Absolute Nucleated RBC 0.030 H Nucleated RBC % (auto) 0.2 Smear Tech's Comments VERIFIED PT 14.5 H INR 1.2 H APTT 29.3 D-Dimer 2274 Sodium Potassium Chloride Carbon Dioxide Anion Gap BUN Creatinine Estim Creat Clear Calc Estimated GFR POC Glucose Random Glucose Lactic Acid Lactic Acid Fup @ 2Hr Lactic Acid Fup @ 4Hr Calcium Total Bilirubin AST ALT Alkaline Phosphatase Ammonia Total Creatine Kinase Troponin I High Sens B-Natriuretic Peptide Total Protein Albumin Specimen Comment Salicylates Urine Opiates Screen Acetaminophen Ur Barbiturates Screen Ur Phencyclidine Scrn Ur Amphetamines Screen U Benzodiazepines Scrn Urine Cocaine Screen U Marijuana (THC) Screen Coronavirus (PCR) NEGATIVE Hep Bs Antigen Hep Bs Antibody Hep B Core Total Ab Hepatitis C Ab (EIA) Influenza Type A (PCR) NEGATIVE Influenza Type B (PCR) NEGATIVE RSV RNA Qual (PCR) NEGATIVE 10/03/20 10/03/20 10/04/20 23:42 23:47 03:08 WBC RBC Hgb Hct MCV MCH MCHC RDW Plt Count MPV Immature Gran % (Auto) Neut % (Auto) Lymph % (Auto) [place] % (Auto) Eos % (Auto) Baso % (Auto) Lymph # (Auto) [place] # (Auto) Eos # (Auto) Baso # (Auto) Abs Immat Gran (auto) Absolute Neuts (auto) Absolute Nucleated RBC Nucleated RBC % (auto) Smear Tech's Comments PT INR APTT D-Dimer Sodium 128 L Potassium 3.4 Chloride 82 L Carbon Dioxide 32 H Anion Gap 17 BUN 30 H D Creatinine 1.65 H Estim Creat Clear Calc 35.8 Estimated GFR 34 POC Glucose Random Glucose 72 D Lactic Acid Lactic Acid Fup @ 2Hr 2.4 H* Lactic Acid Fup @ 4Hr Calcium 7.6 L D Total Bilirubin 1.0 AST 6254 H ALT 1006 H Alkaline Phosphatase 167 H D Ammonia Total Creatine Kinase Troponin I High Sens B-Natriuretic Peptide Total Protein 6.5 Albumin 3.5 Specimen Comment DELAY Salicylates Urine Opiates Screen Acetaminophen Ur Barbiturates Screen Ur Phencyclidine Scrn Ur Amphetamines Screen U Benzodiazepines Scrn Urine Cocaine Screen U Marijuana (THC) Screen Coronavirus (PCR) Hep Bs Antigen Hep Bs Antibody Hep B Core Total Ab Hepatitis C Ab (EIA) Influenza Type A (PCR) Influenza Type B (PCR) RSV RNA Qual (PCR) 10/04/20 10/04/20 10/04/20 03:08 03:08 03:08 WBC RBC Hgb Hct MCV MCH MCHC RDW Plt Count MPV Immature Gran % (Auto) Neut % (Auto) Lymph % (Auto) [place] % (Auto) Eos % (Auto) Baso % (Auto) Lymph # (Auto) [place] # (Auto) Eos # (Auto) Baso # (Auto) Abs Immat Gran (auto) Absolute Neuts (auto) Absolute Nucleated RBC Nucleated RBC % (auto) Smear Tech's Comments PT INR APTT D-Dimer Sodium Potassium Chloride Carbon Dioxide Anion Gap BUN Creatinine Estim Creat Clear Calc Estimated GFR POC Glucose Random Glucose Lactic Acid Lactic Acid Fup @ 2Hr Lactic Acid Fup @ 4Hr Calcium Total Bilirubin AST ALT Alkaline Phosphatase Ammonia 74 H Total Creatine Kinase Troponin I High Sens 258.8 H B-Natriuretic Peptide Total Protein Albumin Specimen Comment Salicylates Urine Opiates Screen Acetaminophen Ur Barbiturates Screen Ur Phencyclidine Scrn Ur Amphetamines Screen U Benzodiazepines Scrn Urine Cocaine Screen U Marijuana (THC) Screen Coronavirus (PCR) Hep Bs Antigen Negative Hep Bs Antibody NONREACTIVE Hep B Core Total Ab Nonreactive Hepatitis C Ab (EIA) Reactive H Influenza Type A (PCR) Influenza Type B (PCR) RSV RNA Qual (PCR) 10/04/20 10/04/20 10/04/20 03:08 06:22 07:03 WBC RBC Hgb Hct MCV MCH MCHC RDW Plt Count MPV Immature Gran % (Auto) Neut % (Auto) Lymph % (Auto) [place] % (Auto) Eos % (Auto) Baso % (Auto) Lymph # (Auto) [place] # (Auto) Eos # (Auto) Baso # (Auto) Abs Immat Gran (auto) Absolute Neuts (auto) Absolute Nucleated RBC Nucleated RBC % (auto) Smear Tech's Comments PT INR APTT D-Dimer Sodium Potassium Chloride Carbon Dioxide Anion Gap BUN Creatinine Estim Creat Clear Calc Estimated GFR POC Glucose Random Glucose Lactic Acid Lactic Acid Fup @ 2Hr Lactic Acid Fup @ 4Hr Calcium Total Bilirubin AST ALT Alkaline Phosphatase Ammonia Total Creatine Kinase 176 H Troponin I High Sens B-Natriuretic Peptide Total Protein Albumin Specimen Comment Salicylates < 5.0 L Urine Opiates Screen POSITIVE H Acetaminophen 1 < 1 Ur Barbiturates Screen Not Detected Ur Phencyclidine Scrn Not Detected Ur Amphetamines Screen Not Detected U Benzodiazepines Scrn Not Detected Urine Cocaine Screen Not Detected U Marijuana (THC) Screen Not Detected Coronavirus (PCR) Hep Bs Antigen Hep Bs Antibody Hep B Core Total Ab Hepatitis C Ab (EIA) Influenza Type A (PCR) Influenza Type B (PCR) RSV RNA Qual (PCR) 10/04/20 10/04/20 10/04/20 07:04 07:04 07:04 WBC Cancelled RBC Cancelled Hgb Cancelled Hct Cancelled MCV Cancelled MCH Cancelled MCHC Cancelled RDW Cancelled Plt Count Cancelled MPV Cancelled Immature Gran % (Auto) Neut % (Auto) Lymph % (Auto) [place] % (Auto) Eos % (Auto) Baso % (Auto) Lymph # (Auto) [place] # (Auto) Eos # (Auto) Baso # (Auto) Abs Immat Gran (auto) Absolute Neuts (auto) Absolute Nucleated RBC Cancelled Nucleated RBC % (auto) Cancelled Smear Tech's Comments PT 15.2 H INR 1.3 H APTT D-Dimer Sodium Potassium Chloride Carbon Dioxide Anion Gap BUN Creatinine Estim Creat Clear Calc Estimated GFR POC Glucose Random Glucose Lactic Acid Lactic Acid Fup @ 2Hr Lactic Acid Fup @ 4Hr 1.9 Calcium Total Bilirubin AST ALT Alkaline Phosphatase Ammonia Total Creatine Kinase Troponin I High Sens B-Natriuretic Peptide Total Protein Albumin Specimen Comment Salicylates Urine Opiates Screen Acetaminophen Ur Barbiturates Screen Ur Phencyclidine Scrn Ur Amphetamines Screen U Benzodiazepines Scrn Urine Cocaine Screen U Marijuana (THC) Screen Coronavirus (PCR) Hep Bs Antigen Hep Bs Antibody Hep B Core Total Ab Hepatitis C Ab (EIA) Influenza Type A (PCR) Influenza Type B (PCR) RSV RNA Qual (PCR) 10/04/20 10/04/20 10/04/20 07:04 07:05 07:05 WBC 10.6 RBC 3.85 L Hgb 11.0 L Hct 31.9 L MCV 82.9 MCH 28.6 MCHC 34.5 RDW 16.9 H Plt Count 190 MPV 12.2 Immature Gran % (Auto) 1.5 H Neut % (Auto) 87.6 H Lymph % (Auto) 8.1 L [place] % (Auto) 2.7 Eos % (Auto) 0.0 Baso % (Auto) 0.1 Lymph # (Auto) 0.9 L [place] # (Auto) 0.3 Eos # (Auto) 0.0 Baso # (Auto) 0.0 Abs Immat Gran (auto) 0.16 H Absolute Neuts (auto) 9.3 H Absolute Nucleated RBC 0.020 H Nucleated RBC % (auto) 0.2 Smear Tech's Comments PT INR APTT D-Dimer Sodium 125 L Potassium 4.7 D Chloride 84 L Carbon Dioxide 28 Anion Gap 18 BUN 29 H Creatinine 1.20 Estim Creat Clear Calc 49.2 Estimated GFR 49 POC Glucose Random Glucose 294 H D Lactic Acid Lactic Acid Fup @ 2Hr Lactic Acid Fup @ 4Hr Calcium 7.4 L Total Bilirubin AST ALT Alkaline Phosphatase Ammonia Total Creatine Kinase Troponin I High Sens B-Natriuretic Peptide Total Protein Albumin Specimen Comment Salicylates Urine Opiates Screen Acetaminophen Ur Barbiturates Screen Ur Phencyclidine Scrn Ur Amphetamines Screen U Benzodiazepines Scrn Urine Cocaine Screen U Marijuana (THC) Screen Coronavirus (PCR) Hep Bs Antigen Negative Hep Bs Antibody NONREACTIVE Hep B Core Total Ab Nonreactive Hepatitis C Ab (EIA) Reactive H Influenza Type A (PCR) Influenza Type B (PCR) RSV RNA Qual (PCR) EKG shows normal sinus rhythm with no significant ST T wave changes. Imaging Radiologist's impression: Impressions Venous Duplex 10/03/20 21:42 IMPRESSION: No DVT demonstrated in either lower extremity. Chest X-Ray 10/03/20 21:43 IMPRESSION: Commonly reported imaging features of Covid 19 or viral pneumonia are now present with multifocal diffuse patchy infiltrates. Other processes such as influenza pneumonia or organizing pneumonia, as can be seen with drug toxicity and connective tissue disease, can cause a similar imaging pattern. Abdomen/Pelvis CT 10/04/20 02:08 IMPRESSION: Extensive groundglass opacification bilaterally. In consideration of the recent chest radiograph and the diagnosis of pneumonia, this appearance is likely in home sales representative of pneumonia rather than contusion. No CT evidence for acute traumatic injury within the thorax, abdomen or pelvis. Automated exposure control (Care Dose) Adjustment of the mA and/or kv according to patient size (this includes techniques or standardized protocols for targeted exams where dose is matched to indication / reason for exam; i.e. extremities or head). Cervical Spine CT 10/04/20 02:08 IMPRESSION: No evidence for acute intracranial injury. No evidence for acute injury to the cervical spine. Automated exposure control (Care Dose) Adjustment of the mA and/or kv according to patient size (this includes techniques or standardized protocols for targeted exams where dose is matched to indication / reason for exam; i.e. extremities or head). Head CT 10/04/20 02:08 IMPRESSION: No evidence for acute intracranial injury. No evidence for acute injury to the cervical spine. Automated exposure control (Care Dose) Adjustment of the mA and/or kv according to patient size (this includes techniques or standardized protocols for targeted exams where dose is matched to indication / reason for exam; i.e. extremities or head). Chest CT 10/04/20 02:09 IMPRESSION: Extensive groundglass opacification bilaterally. In consideration of the recent chest radiograph and the diagnosis of pneumonia, this appearance is likely in home sales representative of pneumonia rather than contusion. No CT evidence for acute traumatic injury within the thorax, abdomen or pelvis. Automated exposure control (Care Dose) Adjustment of the mA and/or kv according to patient size (this includes techniques or standardized protocols for targeted exams where dose is matched to indication / reason for exam; i.e. extremities or head). Assessment and Plan (1) Acute respiratory failure with hypoxia: Status: Acute Patient presents with acute hypoxia and severe hypoxemia with multiorgan failure including acute kidney injury, liver enzyme elevation as well as troponin elevation which are all explained by her significant hypoxemia and hypoxemic respiratory failure. Her elevated biomarkers could also be due to RV strain from significant hypoxic pulmonary vaso constriction. She is clinically currently not in overt heart failure. She does have significant bilateral infiltrates suggestive of pneumonia which most likely explains hypoxemic respiratory failure. Consider pulmonary consultation. Will obtain echocardiogram to evaluate LV systolic and diastolic function to evaluate for RV size and function as well as pulmonary hypertension. This will be scheduled this morning. From cardiac perspective also consider ruling out possibility of pulmonary thromboembolic disease. Her COVID status is negative, however she does have diffuse pneumonic process which is unexplained. Her syncopal episode also appears to be related to significant hypoxemia, hypoglycemic event cannot be entirely ruled out. Consider GI as well as renal consult. Will review echocardiogram and suggest further cardiac recommendation. Currently does not require IV anticoagulation from acute coronary syndrome perspective. Also does not require diuresis from elevated BNP perspective. Will follow up with the patient. Greater than 45 minutes was spent in managing her complex care. (2) Multiorgan failure: Status: Acute See above
[2020-10-04 11:19] LABS: PTT Heparin Drip 34.7 SEC (53-77.9)
--- NOTE | 2020-10-04 11:30 | PC.NURSE ---
ultrasound to bedside
--- NOTE | 2020-10-04 12:05 | MHC.CM.PN ---
Addendum entered by Uzma Yuen 10/04/20 12:45: RETAIL RESET [facility]CH[facility]ISER COMPLETED USING EMR. CM WILL SPEAK TO PT VIA ROOM PHONE ONCE TRANSFERRED TO UNIT. PER EMR, PT INDEPENDENT WITH ALL CARE AND MOBILITY AT BASELINE. PT LIVES WITH HER SIGNIFICANT OTHER/HCP, GEO MORRIS. PT LIKELY TO DC HOME ONCE MEDICALLY CLEARED. Original Note: PT AND HER HCP, GEO MORRIS, HAVE THE SAME NUMBER LISTED. CM CALLED THE NUMBER HOWEVER IT APPEARS TO BE OUT OF SERVICE. CM WILL ATTEMPT TO CONTACT PT ON ROOM PHONE IF SHE IS MOVED TO FLOOR SOON OTHERWISE, CM WILL SEE PT WITH APPROPRIATE PPE
[2020-10-04 12:07] VITALS: BP 122/60; PULSE 83; RESP 18; O2SAT 95
[2020-10-04 13:06] LABS: Glucose, Whole Blood 312 mg/dL (60-115)
[2020-10-04 13:07] LABS: Glucose, Whole Blood 403 mg/dL (60-115)
--- NOTE | 2020-10-04 13:25 | PM.PNPUL ---
Subjective Subjective Date of Service: 10/04/20 Principal diagnosis: RESP. DISTRESS / PNEUMONIA Interval history: PULMONARY CONSULTATION This 45 years old female is seen by me in the emergency room. She came yesterday to the emergency room after a syncopal episode at home, which was related to very severe hyperglycemia due to malfunction of her insulin pump. However at the same time she was feeling short of breath and her O2 sat at home was noted to be in low 80s she required non-rebreather mask during her transport and when she came to the emergency room again her O2 sat was in mid 80s. She is doing fairly well on oxygen by nasal cannula at 4 L/minute. The patient denies having had any fever or chills, she has been feeling somewhat weak and tired, She did have mild intermittent cough nonproductive She denied any chest pain. The chest x-ray and CT scan of the chest were grossly abnormal. Initial up rapid COVID test is negative. But she did have moderately elevated D-dimer and also elevated liver enzymes. Venous ultrasound study negative for DVT. CTA are we Q scan has not been done. Past medical history includes bronchial asthma for many years about relatively well controlled. Just on Flovent and need DuoNeb the updrafts as needed. Patient has insulin-dependent diabetes mellitus and is on insulin pump. Patient also has history of IV drug abuse, which relapsed back in August of this year Last week she was seen by primary care physician and treated with Mycostatin because thrush like appearance in the oral cavity. Patient is cigarette smoker about 1 pack a day Objective Data Labs CBC & Chem 7: 10/04/20 07:04 10/04/20 07:05 Labs: Laboratory Results - last 24 hr 10/03/20 10/03/20 10/03/20 21:20 22:29 22:29 WBC RBC Hgb Hct MCV MCH MCHC RDW Plt Count MPV Immature Gran % (Auto) Neut % (Auto) Lymph % (Auto) [place] % (Auto) Eos % (Auto) Baso % (Auto) Lymph # (Auto) [place] # (Auto) Eos # (Auto) Baso # (Auto) Abs Immat Gran (auto) Absolute Neuts (auto) Absolute Nucleated RBC Nucleated RBC % (auto) Smear Tech's Comments PT INR APTT PTT (Heparin Protocol) D-Dimer Sodium Potassium Chloride Carbon Dioxide Anion Gap BUN Creatinine Estim Creat Clear Calc Estimated GFR POC Glucose 92 Random Glucose Lactic Acid 2.9 H* Lactic Acid Fup @ 2Hr Lactic Acid Fup @ 4Hr Calcium Total Bilirubin AST ALT Alkaline Phosphatase Ammonia Total Creatine Kinase Troponin I High Sens 372.6 H B-Natriuretic Peptide 680 H Total Protein Albumin Specimen Comment Salicylates Urine Opiates Screen Acetaminophen Ur Barbiturates Screen Ur Phencyclidine Scrn Ur Amphetamines Screen U Benzodiazepines Scrn Urine Cocaine Screen U Marijuana (THC) Screen Coronavirus (PCR) Hep Bs Antigen Hep Bs Antibody Hep B Core Total Ab Hepatitis C Ab (EIA) Influenza Type A (PCR) Influenza Type B (PCR) RSV RNA Qual (PCR) 10/03/20 10/03/20 10/03/20 22:29 22:30 22:30 WBC 16.3 H RBC 4.10 L Hgb 11.5 L Hct 34.5 L MCV 84.1 MCH 28.0 MCHC 33.3 RDW 16.8 H Plt Count 223 MPV 10.9 Immature Gran % (Auto) 1.2 H Neut % (Auto) 66.7 Lymph % (Auto) 20.0 [place] % (Auto) 11.6 H Eos % (Auto) 0.4 Baso % (Auto) 0.1 Lymph # (Auto) 3.3 [place] # (Auto) 1.9 H Eos # (Auto) 0.1 Baso # (Auto) 0.0 Abs Immat Gran (auto) 0.20 H Absolute Neuts (auto) 10.9 H Absolute Nucleated RBC 0.030 H Nucleated RBC % (auto) 0.2 Smear Tech's Comments VERIFIED PT 14.5 H INR 1.2 H APTT 29.3 PTT (Heparin Protocol) D-Dimer 2274 Sodium Potassium Chloride Carbon Dioxide Anion Gap BUN Creatinine Estim Creat Clear Calc Estimated GFR POC Glucose Random Glucose Lactic Acid Lactic Acid Fup @ 2Hr Lactic Acid Fup @ 4Hr Calcium Total Bilirubin AST ALT Alkaline Phosphatase Ammonia Total Creatine Kinase Troponin I High Sens B-Natriuretic Peptide Total Protein Albumin Specimen Comment Salicylates Urine Opiates Screen Acetaminophen Ur Barbiturates Screen Ur Phencyclidine Scrn Ur Amphetamines Screen U Benzodiazepines Scrn Urine Cocaine Screen U Marijuana (THC) Screen Coronavirus (PCR) NEGATIVE Hep Bs Antigen Hep Bs Antibody Hep B Core Total Ab Hepatitis C Ab (EIA) Influenza Type A (PCR) NEGATIVE Influenza Type B (PCR) NEGATIVE RSV RNA Qual (PCR) NEGATIVE 10/03/20 10/03/20 10/04/20 23:42 23:47 03:08 WBC RBC Hgb Hct MCV MCH MCHC RDW Plt Count MPV Immature Gran % (Auto) Neut % (Auto) Lymph % (Auto) [place] % (Auto) Eos % (Auto) Baso % (Auto) Lymph # (Auto) [place] # (Auto) Eos # (Auto) Baso # (Auto) Abs Immat Gran (auto) Absolute Neuts (auto) Absolute Nucleated RBC Nucleated RBC % (auto) Smear Tech's Comments PT INR APTT PTT (Heparin Protocol) D-Dimer Sodium 128 L Potassium 3.4 Chloride 82 L Carbon Dioxide 32 H Anion Gap 17 BUN 30 H D Creatinine 1.65 H Estim Creat Clear Calc 35.8 Estimated GFR 34 POC Glucose Random Glucose 72 D Lactic Acid Lactic Acid Fup @ 2Hr 2.4 H* Lactic Acid Fup @ 4Hr Calcium 7.6 L D Total Bilirubin 1.0 AST 6254 H ALT 1006 H Alkaline Phosphatase 167 H D Ammonia Total Creatine Kinase Troponin I High Sens B-Natriuretic Peptide Total Protein 6.5 Albumin 3.5 Specimen Comment DELAY Salicylates Urine Opiates Screen Acetaminophen Ur Barbiturates Screen Ur Phencyclidine Scrn Ur Amphetamines Screen U Benzodiazepines Scrn Urine Cocaine Screen U Marijuana (THC) Screen Coronavirus (PCR) Hep Bs Antigen Hep Bs Antibody Hep B Core Total Ab Hepatitis C Ab (EIA) Influenza Type A (PCR) Influenza Type B (PCR) RSV RNA Qual (PCR) 10/04/20 10/04/20 10/04/20 03:08 03:08 03:08 WBC RBC Hgb Hct MCV MCH MCHC RDW Plt Count MPV Immature Gran % (Auto) Neut % (Auto) Lymph % (Auto) [place] % (Auto) Eos % (Auto) Baso % (Auto) Lymph # (Auto) [place] # (Auto) Eos # (Auto) Baso # (Auto) Abs Immat Gran (auto) Absolute Neuts (auto) Absolute Nucleated RBC Nucleated RBC % (auto) Smear Tech's Comments PT INR APTT PTT (Heparin Protocol) D-Dimer Sodium Potassium Chloride Carbon Dioxide Anion Gap BUN Creatinine Estim Creat Clear Calc Estimated GFR POC Glucose Random Glucose Lactic Acid Lactic Acid Fup @ 2Hr Lactic Acid Fup @ 4Hr Calcium Total Bilirubin AST ALT Alkaline Phosphatase Ammonia 74 H Total Creatine Kinase Troponin I High Sens 258.8 H B-Natriuretic Peptide Total Protein Albumin Specimen Comment Salicylates Urine Opiates Screen Acetaminophen Ur Barbiturates Screen Ur Phencyclidine Scrn Ur Amphetamines Screen U Benzodiazepines Scrn Urine Cocaine Screen U Marijuana (THC) Screen Coronavirus (PCR) Hep Bs Antigen Negative Hep Bs Antibody NONREACTIVE Hep B Core Total Ab Nonreactive Hepatitis C Ab (EIA) Reactive H Influenza Type A (PCR) Influenza Type B (PCR) RSV RNA Qual (PCR) 10/04/20 10/04/20 10/04/20 03:08 06:22 07:03 WBC RBC Hgb Hct MCV MCH MCHC RDW Plt Count MPV Immature Gran % (Auto) Neut % (Auto) Lymph % (Auto) [place] % (Auto) Eos % (Auto) Baso % (Auto) Lymph # (Auto) [place] # (Auto) Eos # (Auto) Baso # (Auto) Abs Immat Gran (auto) Absolute Neuts (auto) Absolute Nucleated RBC Nucleated RBC % (auto) Smear Tech's Comments PT INR APTT PTT (Heparin Protocol) D-Dimer Sodium Potassium Chloride Carbon Dioxide Anion Gap BUN Creatinine Estim Creat Clear Calc Estimated GFR POC Glucose Random Glucose Lactic Acid Lactic Acid Fup @ 2Hr Lactic Acid Fup @ 4Hr Calcium Total Bilirubin AST ALT Alkaline Phosphatase Ammonia Total Creatine Kinase 176 H Troponin I High Sens B-Natriuretic Peptide Total Protein Albumin Specimen Comment Salicylates < 5.0 L Urine Opiates Screen POSITIVE H Acetaminophen 1 < 1 Ur Barbiturates Screen Not Detected Ur Phencyclidine Scrn Not Detected Ur Amphetamines Screen Not Detected U Benzodiazepines Scrn Not Detected Urine Cocaine Screen Not Detected U Marijuana (THC) Screen Not Detected Coronavirus (PCR) Hep Bs Antigen Hep Bs Antibody Hep B Core Total Ab Hepatitis C Ab (EIA) Influenza Type A (PCR) Influenza Type B (PCR) RSV RNA Qual (PCR) 10/04/20 10/04/20 10/04/20 07:04 07:04 07:04 WBC Cancelled RBC Cancelled Hgb Cancelled Hct Cancelled MCV Cancelled MCH Cancelled MCHC Cancelled RDW Cancelled Plt Count Cancelled MPV Cancelled Immature Gran % (Auto) Neut % (Auto) Lymph % (Auto) [place] % (Auto) Eos % (Auto) Baso % (Auto) Lymph # (Auto) [place] # (Auto) Eos # (Auto) Baso # (Auto) Abs Immat Gran (auto) Absolute Neuts (auto) Absolute Nucleated RBC Cancelled Nucleated RBC % (auto) Cancelled Smear Tech's Comments PT 15.2 H INR 1.3 H APTT PTT (Heparin Protocol) D-Dimer Sodium Potassium Chloride Carbon Dioxide Anion Gap BUN Creatinine Estim Creat Clear Calc Estimated GFR POC Glucose Random Glucose Lactic Acid Lactic Acid Fup @ 2Hr Lactic Acid Fup @ 4Hr 1.9 Calcium Total Bilirubin AST ALT Alkaline Phosphatase Ammonia Total Creatine Kinase Troponin I High Sens B-Natriuretic Peptide Total Protein Albumin Specimen Comment Salicylates Urine Opiates Screen Acetaminophen Ur Barbiturates Screen Ur Phencyclidine Scrn Ur Amphetamines Screen U Benzodiazepines Scrn Urine Cocaine Screen U Marijuana (THC) Screen Coronavirus (PCR) Hep Bs Antigen Hep Bs Antibody Hep B Core Total Ab Hepatitis C Ab (EIA) Influenza Type A (PCR) Influenza Type B (PCR) RSV RNA Qual (PCR) 10/04/20 10/04/20 10/04/20 07:04 07:05 07:05 WBC 10.6 RBC 3.85 L Hgb 11.0 L Hct 31.9 L MCV 82.9 MCH 28.6 MCHC 34.5 RDW 16.9 H Plt Count 190 MPV 12.2 Immature Gran % (Auto) 1.5 H Neut % (Auto) 87.6 H Lymph % (Auto) 8.1 L [place] % (Auto) 2.7 Eos % (Auto) 0.0 Baso % (Auto) 0.1 Lymph # (Auto) 0.9 L [place] # (Auto) 0.3 Eos # (Auto) 0.0 Baso # (Auto) 0.0 Abs Immat Gran (auto) 0.16 H Absolute Neuts (auto) 9.3 H Absolute Nucleated RBC 0.020 H Nucleated RBC % (auto) 0.2 Smear Tech's Comments PT INR APTT PTT (Heparin Protocol) D-Dimer Sodium 125 L Potassium 4.7 D Chloride 84 L Carbon Dioxide 28 Anion Gap 18 BUN 29 H Creatinine 1.20 Estim Creat Clear Calc 49.2 Estimated GFR 49 POC Glucose Random Glucose 294 H D Lactic Acid Lactic Acid Fup @ 2Hr Lactic Acid Fup @ 4Hr Calcium 7.4 L Total Bilirubin AST ALT Alkaline Phosphatase Ammonia Total Creatine Kinase Troponin I High Sens B-Natriuretic Peptide Total Protein Albumin Specimen Comment Salicylates Urine Opiates Screen Acetaminophen Ur Barbiturates Screen Ur Phencyclidine Scrn Ur Amphetamines Screen U Benzodiazepines Scrn Urine Cocaine Screen U Marijuana (THC) Screen Coronavirus (PCR) Hep Bs Antigen Negative Hep Bs Antibody NONREACTIVE Hep B Core Total Ab Nonreactive Hepatitis C Ab (EIA) Reactive H Influenza Type A (PCR) Influenza Type B (PCR) RSV RNA Qual (PCR) 10/04/20 10/04/20 10/04/20 07:40 10:25 12:58 WBC RBC Hgb Hct MCV MCH MCHC RDW Plt Count MPV Immature Gran % (Auto) Neut % (Auto) Lymph % (Auto) [place] % (Auto) Eos % (Auto) Baso % (Auto) Lymph # (Auto) [place] # (Auto) Eos # (Auto) Baso # (Auto) Abs Immat Gran (auto) Absolute Neuts (auto) Absolute Nucleated RBC Nucleated RBC % (auto) Smear Tech's Comments PT INR APTT PTT (Heparin Protocol) 34.7 L D-Dimer Sodium Potassium Chloride Carbon Dioxide Anion Gap BUN Creatinine Estim Creat Clear Calc Estimated GFR POC Glucose 312 H 403 H* Random Glucose Lactic Acid Lactic Acid Fup @ 2Hr Lactic Acid Fup @ 4Hr Calcium Total Bilirubin AST ALT Alkaline Phosphatase Ammonia Total Creatine Kinase Troponin I High Sens B-Natriuretic Peptide Total Protein Albumin Specimen Comment Salicylates Urine Opiates Screen Acetaminophen Ur Barbiturates Screen Ur Phencyclidine Scrn Ur Amphetamines Screen U Benzodiazepines Scrn Urine Cocaine Screen U Marijuana (THC) Screen Coronavirus (PCR) Hep Bs Antigen Hep Bs Antibody Hep B Core Total Ab Hepatitis C Ab (EIA) Influenza Type A (PCR) Influenza Type B (PCR) RSV RNA Qual (PCR) Review of Systems Review of Systems Yes all other systems are reviewed and are negative Reports nasal congestion (mild off and on ) Cardiovascular: Denies chest pain at rest, Reports syncope (prior to admission . ) and Denies irregular heart rhythm Respiratory: Reports cough (occasional ) and Reports wheezing (h/o br asthma, controlled ) Gastrointestinal: Denies abdominal pain and Denies nausea Musculoskeletal: Reports no additional musculoskeletal complaints Reports syncope (prior to admission . ) Comments: Insulin-dependent diabetes mellitus and has blood sugars fluctuating. Allergic/Immunologic: Reports wheezing (h/o br asthma, controlled ) Physical Exam Vital Signs: Vital Signs: Last Vital Signs Temp 98.7 F 10/04/20 08:08 Pulse 83 04/05/21 12:07 Resp 18 10/04/20 12:07 BP 122/60 10/04/20 12:07 Pulse Ox 95 10/04/20 12:07 Body Mass Index 27.3 Const: General: comfortable, no acute distress, alert and awake Orientation/consciousness: patient oriented x3 HENMT: Head: Yes normal to inspection General nose exam: No nasal polyps present and No nasal discharge present Face and sinus: Yes sinuses nontender Mouth: oropharynx normal Throat: Yes posterior oropharynx normal Eyes: General: appearance normal, both eyes and all related structures Neck: Neck: Yes normal visual inspection, Yes no lymphadenopathy, Yes trachea midline and Yes no JVD Thyroid: Thyroid normal Chest: Chest palpation & inspection: normal inspection of the chest and normal palpation of entire chest wall Resp: Auscultation: crackles (HAS A FEW FINE CRACKLES , OVER THE MID CHEST AND BASES ON BOTH SIDES . ) and diminished lung sounds Cardio: Palpation: normal PMI Rate: regular rate Rhythm: regular rhythm Heart sounds: no gallops and no murmurs Peripheral pulses: Peripheral pulses 2+ throughout GI: Palpation (GI): Soft to palpation, nontender, No hepatosplenomegaly present and no masses Auscultation: normal bowel sounds Back/Spine/Pelvis: Thoracic/Lumbar Spine: thoracic and lumbar spine normal to inspection Skin: General skin exam: no rashes or lesions noted Neuro: General: patient oriented x3 and no focal motor deficits Cranial nerves: Yes CN's II-XII intact bilaterally Extrem: General: Yes normal to inspection, Yes no clubbing, cyanosis or edema, Yes no calf tenderness and No venous stasis dermatitis Psych: Speech and movement: Normal speech and movement present Assessment and Plan Assessment and plan (1) Pneumonia: Problem details: RADIOLOGICALLY THIS PATIENT HAS EXTENSIVE B BILATERAL PNEUMONIA AND GROUND-GLASS CHANGES. EIGHT APPEARS LIKE COVID 19, PNEUMONIA BUT THE COVID TEST IS REPORTED TO BE NEGATIVE. PLAN : TREAT WITH THE ANTIBIOTIC COVERAGE AND COMBINATION OF AZITHROMYCIN AND TO ROCEPHIN IS OKAY. ALSO KEEP HER ON DEXAMETHASONE FOR ANTI-INFLAMMATORY PURPOSE. Status: Acute (2) Acute respiratory failure with hypoxia: Problem details: SHE DOES HAVE THE SIGNIFICANT HYPOXEMIA, HAS PART OF THE RESPIRATORY DISTRESS SYNDROME. LUCKILY IT IS CONTROLLED WITH THE OXYGEN BY NASAL CANNULA AT 4 L/MINUTE. WILL NEED TO ADJUST THE OXYGEN FLOW NEEDED TO KEEP O2 SAT ABOVE 90%. Status: Acute Time Spent With Patient Time: Total time spent is greater than 50% in coordination of care (as documented) at patient's floor/unit and/or counseling patient: Time with patient: Greater than 35 minutes
[2020-10-04] MEDS: iohexoL 350 MG/ML 100 ML INFUS..BTL IV (15:05)
--- NOTE | 2020-10-04 15:23 | MHC.SLORD ---
Speech Language Pathology Order Status: Order for bedside dysphagia evaluation received 5am this morning. LEGAL SUPPORT SPECIALIST arrived in ED, but was notified by ED RN that patient tolerates food and liquid without difficulty and that evaluation may no longer be needed. LEGAL SUPPORT SPECIALIST checked in with MD via Roy. Order to be canceled. Please re-refer if there are any concerns for dysphagia/aspiration.
[2020-10-04] MEDS: Insulin Lispro 100 UNIT/ML 3 ML VIAL 10 UNIT SUBCUT ×3 (16:02→23:52)
[2020-10-04 16:07] VITALS: BP 130/60; PULSE 88; RESP 16; O2SAT 98
--- NOTE | 2020-10-04 16:38 | P.CNID_ITS ---
History of Present Illness Data of Consult Service Date: 10/04/20 Requesting physician: Devin Gibson Primary Care Provider: Unknown Physician HPI Reason for consult: lung infiltrates She presents with syncope and blood sugar 600 after insulin pump reported malfunction She also has opioid use disorder and has screen positive for opiates and sniffs heroin She has not mentioned vaping Review of Systems Review of Systems: Yes all other systems are reviewed and are negative PMFSH Past Medical History Medical History Asthma Diabetic acetonemia Drug abuse in remission Pneumonia Pneumonia Post-tubal ligation syndrome Family History Family history: reviewed and not pertinent Social History Social History Smoking Status: Current every day smoker Smoked in Last 30 Days: No Advance Directives: No Advance Directives Information Provided: Yes service: No Current occupational status: unemployed Meds Allergies Allergy/AdvReac Type Severity Reaction Status Date / Time ibuprofen [IBUPROFEN] Allergy Unknown LIGHTHEADED;FEELS Verified 06/14/20 18:57 LIKE CHEST IS CLOSING IN;CLAUSTROPHOBIC Active Medications: Current Medications Generic Name Dose Route Start Last Admin Trade Name Freq PRN Reason Stop Dose Admin Albuterol Sulfate 2 puff 10/04/20 05:14 Albuterol Sulfate 90 Mcg 8 Gm Inhaler INHALE Q6H PRN wheezing Albuterol/Ipratropium 3 ml 10/04/20 05:14 Albuterol/Iprat 2.5/0.5mg 3 Ml Ampul.Neb INHALE RQID PRN wheezing Azithromycin 500 mg 10/04/20 21:00 Azithromycin 500 Mg Tablet PO Q24H SILKE Benzonatate 100 mg 10/04/20 09:00 10/04/20 15:32 Benzonatate 100 Mg Capsule PO 100 mg TID SILKE Administration Dexamethasone 6 mg 10/04/20 09:00 10/04/20 10:22 Dexamethasone 6 Mg Tablet PO 6 mg DAILY SILKE Administration Sodium Chloride 1,000 mls @ 50 mls/hr 10/04/20 05:30 10/04/20 15:31 Ns IVCONT 0 mls/hr .Q20H SILKE Infusion Insulin Glargine 20 unit 10/04/20 21:00 Insulin Glargine,Hum.Rec.Anlog 100 Unit/Ml 10 Ml Vial SUBCUT BEDTIME [facility] Insulin Human Lispro 0 unit 10/04/20 07:30 10/04/20 16:02 Insulin Lispro 100 Unit/Ml 3 Ml Vial SUBCUT 10 unit QIDACHS [facility] Administration Protocol Sodium Chloride 3 ml 10/04/20 08:00 10/04/20 08:10 0.9 % Sodium Chloride Flush 3 Ml Syringe IVFLUSH 3 ml QSHIFT [facility] Administration Sodium Chloride 3 ml 10/04/20 08:00 10/04/20 08:10 0.9 % Sodium Chloride Flush 3 Ml Syringe IVFLUSH 3 ml QSTXFT [facility] Administration Home Medications Medication Instructions Recorded Confirmed Last Taken Type albuterol sulfate 2 puff INHALATION Q6H PRN 10/04/20 10/04/20 Unknown History aspirin 81 mg PO DAILY 10/04/20 10/04/20 10/03/20 History fluticasone propionate [Flovent 2 puff PO BID 10/04/20 10/04/20 10/03/20 History HFA] insulin lispro [Admelog U-100 80 unit SUBCUT DAILY 10/04/20 10/04/20 10/04/20 History Insulin lispro] ipratropium-albuterol 1 vial INHALATION Q6H PRN 10/04/20 10/04/20 Unknown History lovastatin 1 tab PO DAILY 10/04/20 10/04/20 10/03/20 History nystatin 5 ml PO QID 10/04/20 10/04/20 10/03/20 History subcutaneous insulin pump 10/04/20 10/04/20 Unknown History sumatriptan succinate 50 mg PO DAILY PRN 10/04/20 10/04/20 Unknown History Physical Exam Vital Signs: Vital Signs: Last Vital Signs Temp 98.7 F 10/04/20 08:08 Pulse 88 10/04/20 16:07 Resp 16 10/04/20 16:07 BP 130/60 10/04/20 16:07 Pulse Ox 98 10/04/20 16:07 Body Mass Index 27.3 Const: General: cooperative Orientation/consciousness: patient oriented x3 HENMT: Head: Yes normal to inspection Mouth: Normal oral and palatal mucosa present Eyes: General: appearance normal, both eyes and all related structures Resp: Effort & Inspection: normal respiratory effort Cardio: Rate: regular rate Rhythm: regular rhythm GI: Palpation (GI): nontender : General: Yes no CVA tenderness Back/Spine/Pelvis: Back: no CVA tenderness Neuro: General: patient oriented x3 and moves all extremities Extrem: General: Yes normal to inspection Results Labs CBC & Chem 7: 10/04/20 07:04 10/04/20 07:05 Labs: Short CBC 10/03/20 10/04/20 10/04/20 Range/Units 22:30 07:04 07:04 WBC 16.3 H Cancelled 10.6 (4.8-10.8) X10*3/uL Hgb 11.5 L Cancelled 11.0 L (12.0-16.0) g/dl Hct 34.5 L Cancelled 31.9 L (37-47) % Plt Count 223 Cancelled 190 (160-400) X10*3/uL BMP 10/03/20 10/04/20 23:42 07:05 Sodium 128 L 125 L Potassium 3.4 4.7 D Chloride 82 L 84 L Carbon Dioxide 32 H 28 BUN 30 H D 29 H Creatinine 1.65 H 1.20 Calcium 7.6 L D 7.4 L Cardiac Enzymes 10/04/20 Range/Units 03:08 Total Creatine Kinase 176 H (26-140) U/L Liver Function 10/03/20 Range/Units 23:42 Total Bilirubin 1.0 (0.0-1.0) mg/dL AST 6254 H (5-31) U/L ALT 1006 H (0-31) U/L Alkaline Phosphatase 167 H D (39-117) U/L Albumin 3.5 (3.5-5.0) g/dL Assessment and Plan (1) Pneumonia: Problem details: RADIOLOGICALLY THIS PATIENT HAS EXTENSIVE B BILATERAL PNEUMONIA AND GROUND-GLASS CHANGES. Since COVID is negative this may likely be related to substance use such as heroin and possible EVALI Less likely Legionella Less likely PJP Status: Acute Stop Ceftriaxone and Flagyl ,there is no lobar bacterial type infiltrate associated with aspiration Continue po Azithromycin and steroids Check HIV test as reported thrush in past Advice to get into treatment opioid use disorder Check cryptococcal antigen for fungus associated with possible drug use
[2020-10-04 20:00] VITALS: BP 117/63; BP 130/69; PULSE 90; PULSE 94; RESP 18; RESP 24; TEMP 36.8; O2SAT 96; O2SAT 99
--- NOTE | 2020-10-04 20:28 | HO.PM.IMPN ---
Subjective Subjective Date of Service: 10/04/20 Interval History: .F/u on acute hypoxic resp failure, gonzalo infiltrate, negative covid x 2, feels much better today. Oxygen still drops significantly without O2 Review of Systems Gen: no fever Resp: no sob, no cough CV: no chest, no PETTIT, no leg edema GI: No n/v, no abd pain Neuro: No confusion Physical Exam Vital Signs: Vital Signs: Last Vital Signs Temp 98.7 F 10/04/20 08:08 Pulse 88 10/04/20 16:07 Resp 16 10/04/20 16:07 BP 130/60 10/04/20 16:07 Pulse Ox 98 10/04/20 16:07 Body Mass Index 27.3 Const: General: cooperative and healthy appearing Orientation/consciousness: patient oriented x3 Neck: Neck: Yes supple and Yes no JVD Resp: Effort & Inspection: normal respiratory effort and able to speak in complete sentences Auscultation: rhonchi Cardio: Jugular venous distension: no JVD Rate: regular rate Heart sounds: S1 normal heart sound present, S2 normal heart sound present and no murmurs GI: Palpation (GI): No hepatosplenomegaly present Auscultation: normal bowel sounds Rectal Exam - Female: No tenderness Skin: General skin exam: no rashes or lesions noted Neuro: General: patient oriented x3 Psych: Appearance: grossly normal Insight: Good insight present (Psych) Objective Data Current Medications Generic Name Dose Route Start Last Admin Trade Name Freq PRN Reason Stop Dose Admin Albuterol Sulfate 2 puff 10/04/20 05:14 Albuterol Sulfate 90 Mcg 8 Gm Inhaler INHALE Q6H PRN wheezing Albuterol/Ipratropium 3 ml 10/04/20 05:14 Albuterol/Iprat 2.5/0.5mg 3 Ml Ampul.Neb INHALE RQID PRN wheezing Azithromycin 500 mg 10/04/20 21:00 Azithromycin 500 Mg Tablet PO Q24H SILKE Benzonatate 100 mg 10/04/20 09:00 10/04/20 15:32 Benzonatate 100 Mg Capsule PO 100 mg TID SILKE Administration Dexamethasone 6 mg 10/04/20 09:00 10/04/20 10:22 Dexamethasone 6 Mg Tablet PO 6 mg DAILY SILKE Administration Sodium Chloride 1,000 mls @ 50 mls/hr 10/04/20 05:30 10/04/20 18:40 Ns IVCONT 50 mls/hr .Q20H SILKE Infusion Insulin Glargine 20 unit 10/04/20 21:00 Insulin Glargine,Hum.Rec.Anlog 100 Unit/Ml 10 Ml Vial SUBCUT BEDTIME SILKE Insulin Human Lispro 0 unit 10/04/20 07:30 10/04/20 16:02 Insulin Lispro 100 Unit/Ml 3 Ml Vial SUBCUT 10 unit QIDACHS [facility] Administration Protocol Sodium Chloride 3 ml 10/04/20 08:00 10/04/20 18:40 0.9 % Sodium Chloride Flush 3 Ml Syringe IVFLUSH 3 ml QSHIFT [facility] Administration Sodium Chloride 3 ml 10/04/20 08:00 10/04/20 18:40 0.9 % Sodium Chloride Flush 3 Ml Syringe IVFLUSH 3 ml QSHIFT [facility] Administration Labs CBC & Chem 7: 10/04/20 07:04 10/05/20 04:06 Assessment and Plan (1) Transaminitis: Status: Acute (2) Pneumonia: Status: Acute (3) Syncope: Status: Acute (4) Diabetes: Status: Acute Assessment and Plan: 45 year female wit wit substance use, diabetes who presented with hypoxic, hyperglycemic syncope and found to transaminitis, elevated troponinin, 1. Acute hypoxic respiratory failure--exact cause unknown, possibly related to syncope, chemical pneumonitis. There is NO evidence of covid. Suspect possible chemical pneumonitis from subtance use. She is presently no longer hypoxi. Take off O2. There is no indication for antiboitics and therefore discontinued by ID. Continue Decadron . CT chest negaive for PE so empiric heparin discontinued 2. Tansaminitis--possible related to hypoxic related acute liver injury, but she also positive hepatitis C positive antibody. Hydrate and repeat labs today 3. Hyponatremia--etiology not sure, close monior, repeat lab and if not improving nephrology consult 4. Elevated troponin-no evidence coronorary disease, likely related to hypoxic injury, see cardiac eval for detail 5. Hyperglycemia--Use insulin pump and additional insulin as needed 6.
[2020-10-04] MEDS: Azithromycin 500 MG TABLET PO (20:50)
[2020-10-04 21:02] LABS: Glucose, Whole Blood 237 mg/dL (60-115)
[2020-10-04 21:02] LABS: Glucose, Whole Blood 486 mg/dL (60-115)
[2020-10-04 21:02] LABS: Glucose, Whole Blood 419 mg/dL (60-115)
[2020-10-04] MEDS: Insulin Glargine,Hum.rec.anlog 100 UNIT/ML 10 ML VIAL 20 UNIT SUBCUT (21:47)
[2020-10-04 22:49] LABS: Alanine Aminotransferase 676 U/L (0-31); Albumin Level 3.3 g/dL (3.5-5.0); Alkaline Phosphatase 174 U/L (39-117); Anion Gap 16 (12-20); Aspartate Amino Transferase 1397 U/L (5-31); Bilirubin Direct 0.6 mg/dL (0.0-0.5); Bilirubin Total 0.8 mg/dL (0.0-1.0); Blood Urea Nitrogen 32 mg/dL (9-16); Calcium 7.4 mg/dL (8.4-10.2); Carbon Dioxide 31 mmol/L (22-29); Chloride 82 mmol/L (96-108); Creatinine Clr Calc Pharmacy 55.2; Estimated Glomerular Filt Rate 55; Glucose Random 618 mg/dL (60-115); Potassium 4.8 mmol/L (3.3-5.1); Sodium 124 mmol/L (135-145); Total Protein 6.5 g/dL (6.5-8.0)
[2020-10-04 23:19] LABS: Glucose, Whole Blood 503 mg/dL (60-115)
[2020-10-04] MEDS: Insulin Regular, Human 100 UNIT/ML 3 ML VIAL 10 UNIT IVPUSH (23:52)
[2020-10-05] VITALS (12 sets, daily range): BP systolic 116–137; BP diastolic 61–78; PULSE 68–96; RESP 18–20; TEMP 36.2–37; O2SAT 90–94
[2020-10-05 00:18] LABS: Glucose Urine UA >=1000 MG/DL (NEG); Leukocyte Esterase Urine NEG (NEG); Nitrite Urine NEG (NEG); PH 6.5 (5.0-8.0); Specific Gravity - Urine <= 1.005 (1.005-1.025); Urine Blood 2+ (NEG); Urine Ketones NEG (NEG); Urine Protein NEG (NEG-TRACE)
[2020-10-05 00:20] LABS: Appearance Urine CLEAR; Color Urine STRAW
[2020-10-05 00:43] LABS: Squamous Epithelial Cell Urine TRACE /LPF; WBC Urine 0-2 /HPF (0-4)
[2020-10-05 00:47] LABS: Acetone, serum QL Negative (Negative)
[2020-10-05 00:48] LABS: Anion Gap 13 (12-20); Blood Urea Nitrogen 31 mg/dL (9-16); Calcium 7.1 mg/dL (8.4-10.2); Carbon Dioxide 32 mmol/L (22-29); Chloride 83 mmol/L (96-108); Creatinine Clr Calc Pharmacy 53.7; Estimated Glomerular Filt Rate 54; Glucose Random 549 mg/dL (60-115); Potassium 4.6 mmol/L (3.3-5.1); Sodium 123 mmol/L (135-145)
[2020-10-05 01:04] LABS: Glucose, Whole Blood 356 mg/dL (60-115)
[2020-10-05] MEDS: Insulin Lispro 100 UNIT/ML 3 ML VIAL 10 UNIT SUBCUT ×2 (01:17→10:35)
[2020-10-05] MEDS: 0.9 % Sodium Chloride 1,000 ML 100 ML IVCONT ×3 (01:17→20:42)
[2020-10-05] MEDS: Insulin Regular, Human 100 UNIT/ML 3 ML VIAL 10 UNIT IVPUSH (01:17)
[2020-10-05 03:09] LABS: Glucose, Whole Blood 202 mg/dL (60-115)
[2020-10-05 04:08] LABS: Glucose, Whole Blood 136 mg/dL (60-115)
[2020-10-05] MEDS: Albuterol/Iprat 2.5/0.5MG 3 ML AMPUL.NEB INHALE (04:28)
[2020-10-05 04:32] LABS: HIV AB/AG Nonreactive (Nonreactive); HIV Num 1 0.07 S/CO (0.00-0.99)
[2020-10-05 04:45] LABS: Anion Gap 13 (12-20); Blood Urea Nitrogen 30 mg/dL (9-16); Calcium 7.7 mg/dL (8.4-10.2); Carbon Dioxide 31 mmol/L (22-29); Chloride 88 mmol/L (96-108); Cholesterol 94 mg/dL; Creatinine Clr Calc Pharmacy 75.7; Estimated Glomerular Filt Rate > 60; Glucose Random 133 mg/dL (60-115); HDL Cholesterol 11 mg/dL; LDL Cholesterol Calculated 53 mg/dl; Potassium 4.3 mmol/L (3.3-5.1); Sodium 128 mmol/L (135-145); Triglycerides 153 mg/dL
[2020-10-05 05:36] LABS: Glucose, Whole Blood 133 mg/dL (60-115)
--- NOTE | 2020-10-05 05:47 | PC.NURSE ---
Upon admission pt random glucose at 22:45pm 618, POC 503. Pt medicated with 20 units Lantus and 20 units Humalog and 10 units IV Humulin. Order for Q1H POC. Next random glucose at 0100 was 549, POC 356. Pt medicated with another 10 units IV Humulin and 10 units Humalog. MD order to change NS running at 50 ml/hr to 100 ml/hr. POC trending down, last POC checked at 0400 and 0500 and both 130's. Pt requesting snacks. Satting 93% on 3.5L O2. PRN RT treatment administered for wheezing/coughing. Will continue to monitor.
[2020-10-05 07:16] LABS: Glucose, Whole Blood 131 mg/dL (60-115)
[2020-10-05 07:16] LABS: Adenovirus PCR Not Detected (Not Detect.); Bordetella parapertussis PCR Not Detected (Not Detect.); Bordetella pertussis PCR Not Detected (Not Detect.); Chlamydia pneumoniae PCR Not Detected (Not Detect.); Coronavirus 229E PCR Not Detected (Not Detect.); Coronavirus HKU1 PCR Not Detected (Not Detect.); Coronavirus NL63 PCR Not Detected (Not Detect.); Coronavirus OC43 PCR Not Detected (Not Detect.); Human metapneumovirus PCR Not Detected (Not Detect.); Influenza A PCR Not Detected (Not Detect.); Influenza B PCR Not Detected (Not Detect.); Mycoplasma pneumoniae PCR Not Detected (Not Detect.); Parainfluenza 1 PCR Not Detected (Not Detect.); Parainfluenza 2 PCR Not Detected (Not Detect.); Parainfluenza 3 PCR Not Detected (Not Detect.); Parainfluenza 4 PCR Not Detected (Not Detect.); RSV PCR Not Detected (Not Detect.); Rhino/Enterovirus PCR Not Detected (Not Detect.); SARS-CoV-2 PCR Not Detected (Not Detect.)
[2020-10-05] MEDS: 0.9 % Sodium Chloride Flush 3 ML SYRINGE IVFLUSH ×4 (08:26→15:03)
[2020-10-05] MEDS: Benzonatate 100 MG CAPSULE PO ×3 (08:26→20:42)
--- NOTE | 2020-10-05 09:41 | PM.PNPUL ---
Subjective Subjective Date of Service: 10/05/20 Principal diagnosis: RESP. DISTRESS / PNEUMONIA Interval history: THIS PATIENT IS SEEN FOR PULMONARY FOLLOW-UP. Claims to be feeling better, and does not have any acute respiratory distress. She claims that her cough is loosened and becoming somewhat productive. She is remaining afebrile, denies any chest pain. Oxygenating well with 4 L/minute by nasal cannula. Objective Data Labs CBC & Chem 7: 10/04/20 07:04 10/05/20 04:06 Labs: Laboratory Results - last 24 hr 10/04/20 10/04/20 10/04/20 07:40 10:25 12:58 PTT (Heparin Protocol) 34.7 L Sodium Potassium Chloride Carbon Dioxide Anion Gap BUN Creatinine Estim Creat Clear Calc Estimated GFR POC Glucose 312 H 403 H* Random Glucose Calcium Total Bilirubin Direct Bilirubin AST ALT Alkaline Phosphatase Total Protein Albumin Triglycerides Cholesterol LDL Cholesterol, Calc HDL Cholesterol Urine Color Urine Appearance Urine pH Ur Specific [place] Urine Protein Urine Glucose (UA) Urine Ketones Urine Blood Urine Nitrite Ur Leukocyte Esterase Urine RBC Urine WBC Ur Squamous Epith Cells Urine Bacteria Urine Yeast Acetone, Qual Respiratory Panel Law Adenovirus (Rapid PCR) B.pert (TEM-PCR) B.parapertussis DNA PCR C. pneumoniae DNA (PCR) Coronavirus OC43 (PCR) Coronavirus HKU1 (PCR) Coronavirus 229E (PCR) Coronavirus NL63 (PCR) HIV 1&2 Ab/P24 Ag 4thGn Human Metapneumovir PCR Influenza A (RT-PCR) Influenza B (RT-PCR) M. pneumoniae (PCR) Parainfluenza 1 (PCR) Parainfluenza 2 (PCR) Parainfluenza 3 (PCR) Parainfluenza 4 (PCR) RSV (PCR) Entero/Rhino (PCR) SARS-CoV-2 RNA (RT-PCR) 10/04/20 10/04/20 10/04/20 15:45 18:03 20:52 PTT (Heparin Protocol) Sodium Potassium Chloride Carbon Dioxide Anion Gap BUN Creatinine Estim Creat Clear Calc Estimated GFR POC Glucose 419 H* 237 H 486 H* Random Glucose Calcium Total Bilirubin Direct Bilirubin AST ALT Alkaline Phosphatase Total Protein Albumin Triglycerides Cholesterol LDL Cholesterol, Calc HDL Cholesterol Urine Color Urine Appearance Urine pH Ur Specific [place] Urine Protein Urine Glucose (UA) Urine Ketones Urine Blood Urine Nitrite Ur Leukocyte Esterase Urine RBC Urine WBC Ur Squamous Epith Cells Urine Bacteria Urine Yeast Acetone, Qual Respiratory Panel Law Adenovirus (Rapid PCR) B.pert (TEM-PCR) B.parapertussis DNA PCR C. pneumoniae DNA (PCR) Coronavirus OC43 (PCR) Coronavirus HKU1 (PCR) Coronavirus 229E (PCR) Coronavirus NL63 (PCR) HIV 1&2 Ab/P24 Ag 4thGn Human Metapneumovir PCR Influenza A (RT-PCR) Influenza B (RT-PCR) M. pneumoniae (PCR) Parainfluenza 1 (PCR) Parainfluenza 2 (PCR) Parainfluenza 3 (PCR) Parainfluenza 4 (PCR) RSV (PCR) Entero/Rhino (PCR) SARS-CoV-2 RNA (RT-PCR) 10/04/20 10/04/20 10/04/20 21:55 22:21 23:14 PTT (Heparin Protocol) Sodium 124 L Potassium 4.8 Chloride 82 L Carbon Dioxide 31 H Anion Gap 16 BUN 32 H Creatinine 1.07 Estim Creat Clear Calc 55.2 Estimated GFR 55 POC Glucose 503 H* Random Glucose 618 H* Calcium 7.4 L Total Bilirubin 0.8 Direct Bilirubin 0.6 H AST 1397 H ALT 676 H Alkaline Phosphatase 174 H Total Protein 6.5 Albumin 3.3 L Triglycerides Cholesterol LDL Cholesterol, Calc HDL Cholesterol Urine Color Urine Appearance Urine pH Ur Specific [place] Urine Protein Urine Glucose (UA) Urine Ketones Urine Blood Urine Nitrite Ur Leukocyte Esterase Urine RBC Urine WBC Ur Squamous Epith Cells Urine Bacteria Urine Yeast Acetone, Qual Respiratory Panel Law Adenovirus (Rapid PCR) B.pert (TEM-PCR) B.parapertussis DNA PCR C. pneumoniae DNA (PCR) Coronavirus OC43 (PCR) Coronavirus HKU1 (PCR) Coronavirus 229E (PCR) Coronavirus NL63 (PCR) HIV 1&2 Ab/P24 Ag 4thGn Nonreactive Human Metapneumovir PCR Influenza A (RT-PCR) Influenza B (RT-PCR) M. pneumoniae (PCR) Parainfluenza 1 (PCR) Parainfluenza 2 (PCR) Parainfluenza 3 (PCR) Parainfluenza 4 (PCR) RSV (PCR) Entero/Rhino (PCR) SARS-CoV-2 RNA (RT-PCR) 10/04/20 10/04/20 10/05/20 23:35 Unknown 00:02 PTT (Heparin Protocol) Sodium 123 L Potassium 4.6 Chloride 83 L Carbon Dioxide 32 H Anion Gap 13 BUN 31 H Creatinine 1.10 Estim Creat Clear Calc 53.7 Estimated GFR 54 POC Glucose Random Glucose 549 H* Calcium 7.1 L Total Bilirubin Direct Bilirubin AST ALT Alkaline Phosphatase Total Protein Albumin Triglycerides Cholesterol LDL Cholesterol, Calc HDL Cholesterol Urine Color STRAW Urine Appearance CLEAR Urine pH 6.5 Ur Specific [place] <= 1.005 Urine Protein NEG Urine Glucose (UA) >=1000 H Urine Ketones NEG Urine Blood 2+ H Urine Nitrite NEG Ur Leukocyte Esterase NEG Urine RBC 1-4 Urine WBC 0-2 Ur Squamous Epith Cells TRACE Urine Bacteria NONE Urine Yeast TRACE Acetone, Qual Negative Respiratory Panel Law See Note Adenovirus (Rapid PCR) Not Detected B.pert (TEM-PCR) Not Detected B.parapertussis DNA PCR Not Detected C. pneumoniae DNA (PCR) Not Detected Coronavirus OC43 (PCR) Not Detected Coronavirus HKU1 (PCR) Not Detected Coronavirus 229E (PCR) Not Detected Coronavirus NL63 (PCR) Not Detected HIV 1&2 Ab/P24 Ag 4thGn Human Metapneumovir PCR Not Detected Influenza A (RT-PCR) Not Detected Influenza B (RT-PCR) Not Detected M. pneumoniae (PCR) Not Detected Parainfluenza 1 (PCR) Not Detected Parainfluenza 2 (PCR) Not Detected Parainfluenza 3 (PCR) Not Detected Parainfluenza 4 (PCR) Not Detected RSV (PCR) Not Detected Entero/Rhino (PCR) Not Detected SARS-CoV-2 RNA (RT-PCR) Not Detected 10/05/20 10/05/20 10/05/20 01:00 03:04 04:04 PTT (Heparin Protocol) Sodium Potassium Chloride Carbon Dioxide Anion Gap BUN Creatinine Estim Creat Clear Calc Estimated GFR POC Glucose 356 H* 202 H 136 H Random Glucose Calcium Total Bilirubin Direct Bilirubin AST ALT Alkaline Phosphatase Total Protein Albumin Triglycerides Cholesterol LDL Cholesterol, Calc HDL Cholesterol Urine Color Urine Appearance Urine pH Ur Specific [place] Urine Protein Urine Glucose (UA) Urine Ketones Urine Blood Urine Nitrite Ur Leukocyte Esterase Urine RBC Urine WBC Ur Squamous Epith Cells Urine Bacteria Urine Yeast Acetone, Qual Respiratory Panel Law Adenovirus (Rapid PCR) B.pert (TEM-PCR) B.parapertussis DNA PCR C. pneumoniae DNA (PCR) Coronavirus OC43 (PCR) Coronavirus HKU1 (PCR) Coronavirus 229E (PCR) Coronavirus NL63 (PCR) HIV 1&2 Ab/P24 Ag 4thGn Human Metapneumovir PCR Influenza A (RT-PCR) Influenza B (RT-PCR) M. pneumoniae (PCR) Parainfluenza 1 (PCR) Parainfluenza 2 (PCR) Parainfluenza 3 (PCR) Parainfluenza 4 (PCR) RSV (PCR) Entero/Rhino (PCR) SARS-CoV-2 RNA (RT-PCR) 10/05/20 10/05/20 10/05/20 04:06 05:30 06:51 PTT (Heparin Protocol) Sodium 128 L Potassium 4.3 Chloride 88 L Carbon Dioxide 31 H Anion Gap 13 BUN 30 H Creatinine 0.78 Estim Creat Clear Calc 75.7 Estimated GFR > 60 POC Glucose 133 H 131 H Random Glucose 133 H D Calcium 7.7 L D Total Bilirubin Direct Bilirubin AST ALT Alkaline Phosphatase Total Protein Albumin Triglycerides 153 Cholesterol 94 LDL Cholesterol, Calc 53 HDL Cholesterol 11 Urine Color Urine Appearance Urine pH Ur Specific [place] Urine Protein Urine Glucose (UA) Urine Ketones Urine Blood Urine Nitrite Ur Leukocyte Esterase Urine RBC Urine WBC Ur Squamous Epith Cells Urine Bacteria Urine Yeast Acetone, Qual Respiratory Panel Law Adenovirus (Rapid PCR) B.pert (TEM-PCR) B.parapertussis DNA PCR C. pneumoniae DNA (PCR) Coronavirus OC43 (PCR) Coronavirus HKU1 (PCR) Coronavirus 229E (PCR) Coronavirus NL63 (PCR) HIV 1&2 Ab/P24 Ag 4thGn Human Metapneumovir PCR Influenza A (RT-PCR) Influenza B (RT-PCR) M. pneumoniae (PCR) Parainfluenza 1 (PCR) Parainfluenza 2 (PCR) Parainfluenza 3 (PCR) Parainfluenza 4 (PCR) RSV (PCR) Entero/Rhino (PCR) SARS-CoV-2 RNA (RT-PCR) Microbiology Microbiology Results: Microbiology 10/03/20 22:37 Blood - Venous Blood Culture - Preliminary No growth after 24 hours. 10/03/20 22:29 Blood - Venous Blood Culture - Preliminary No growth after 24 hours. Review of Systems Review of Systems Yes all other systems are reviewed and are negative Reports system reviewed and no additional complaints, except as documented Cardiovascular: Denies chest pain and Denies dyspnea Respiratory: Reports as per HPI and Denies dyspnea Gastrointestinal: Denies dyspepsia, Denies heartburn and Denies nausea Musculoskeletal: Reports no additional musculoskeletal complaints Reports system reviewed and no additional complaints, except as documented and Reports Abnormal speech present Psychiatric: Reports no additional psychiatric complaints Physical Exam Vital Signs: Vital Signs: Last Vital Signs Temp 98 F 10/05/20 06:52 Pulse 78 10/05/20 06:52 Resp 20 10/05/20 06:52 BP 131/62 10/05/20 06:52 Pulse Ox 94 10/05/20 06:52 Body Mass Index 27.3 Const: General: comfortable, no acute distress, alert and awake Orientation/consciousness: patient oriented x3 HENMT: Head: Yes normal to inspection General nose exam: No nasal polyps present and No nasal discharge present Face and sinus: Yes sinuses nontender Mouth: oropharynx normal Throat: Yes posterior oropharynx normal Eyes: General: appearance normal, both eyes and all related structures Neck: Neck: Yes normal visual inspection, Yes no lymphadenopathy, Yes trachea midline and Yes no JVD Thyroid: Thyroid normal Chest: Chest palpation & inspection: normal inspection of the chest and normal palpation of entire chest wall Resp: Effort & Inspection: normal respiratory effort Auscultation: crackles (only a few fine creps in the back ) Cardio: Palpation: normal PMI Rate: regular rate Rhythm: regular rhythm Heart sounds: Gallop heart sound present and Murmur heart sound present Peripheral pulses: Peripheral pulses 2+ throughout GI: Palpation (GI): Soft to palpation, Tenderness to palpation present (GI), No hepatosplenomegaly present and Palpable mass present Auscultation: normal bowel sounds Back/Spine/Pelvis: Thoracic/Lumbar Spine: thoracic and lumbar spine normal to inspection Skin: General skin exam: no rashes or lesions noted Neuro: General: patient oriented x3 and no focal motor deficits Cranial nerves: Yes CN's II-XII intact bilaterally Speech: Abnormal speech present Extrem: General: Yes normal to inspection, Yes no clubbing, cyanosis or edema, Yes no calf tenderness and Yes venous stasis dermatitis Psych: Speech and movement: Normal speech and movement present Assessment and Plan Assessment and plan (1) Pneumonia: Problem details: RADIOLOGICALLY THIS PATIENT HAS EXTENSIVE B BILATERAL PNEUMONIA AND GROUND-GLASS CHANGES. Since COVID is negative this may likely be related to substance use such as heroin and possible EVALI Less likely Legionella Less likely PJP I think it will be prudent to keep her on low-dose steroids for at least 5 days. And continue her on azithromycin. Repeat chest x-ray tomorrow for follow-up. Status: Acute (2) Acute respiratory failure with hypoxia: Problem details: SHE DOES HAVE THE SIGNIFICANT HYPOXEMIA, HAS PART OF THE RESPIRATORY DISTRESS SYNDROME. LUCKILY IT IS CONTROLLED WITH THE OXYGEN BY NASAL CANNULA AT 4 L/MINUTE. WILL NEED TO ADJUST THE OXYGEN FLOW NEEDED TO KEEP O2 SAT ABOVE 90%. Status: Acute Time Spent With Patient Time: Total time spent is greater than 50% in coordination of care (as documented) at patient's floor/unit and/or counseling patient: Time with patient: 15 - 24 minutes
[2020-10-05 10:15] LABS: Glucose, Whole Blood 470 mg/dL (60-115)
[2020-10-05 10:15] LABS: Glucose, Whole Blood 471 mg/dL (60-115)
[2020-10-05 11:12] LABS: Glucose, Whole Blood 460 mg/dL (60-115)
[2020-10-05] MEDS: Insulin Lispro 100 UNIT/ML 3 ML VIAL SUBCUT (11:29)
--- NOTE | 2020-10-05 11:55 | PM.PNCARD ---
Subjective Subjective Date of Service: 10/05/20 <EDIN Guadarrama - Last Filed: 10/05/20 12:13> 10/05/20 <Souleymane Alvarenga MD - Last Filed: 10/05/20 14:29> Principal diagnosis: RESP. DISTRESS / PNEUMONIA <EDIN Guadarrama - Last Filed: 10/05/20 12:13> Interval history: Cardiology follow up for elevated troponin, RV strain. Seen at 0830. Today she reports that her breathing is getting better. Wearing O2 with nasal cannula. She has no chest pains, palpitations, presyncope. She feels her legs are swollen. Slept well. Hoping to go home in 1-2 days. <EDIN Guadarrama - Last Filed: 10/05/20 12:13> Review of Systems Review of Systems as above <EDIN Guadarrama - Last Filed: 10/05/20 12:13> Yes all other systems are reviewed and are negative <EDIN Guadarrama - Last Filed: 10/05/20 12:13> Physical Exam Vital Signs: Last Vital Signs Temp 98 F 10/05/20 06:52 Pulse 96 10/05/20 08:00 Resp 20 10/05/20 06:52 BP 137/73 10/05/20 08:00 Pulse Ox 94 10/05/20 06:52 Body Mass Index 27.3 <EDIN Guadarrama - Last Filed: 10/05/20 12:13> Const General: cooperative, no acute distress, alert and awake <EDIN Guadarrama - Last Filed: 10/05/20 12:13> Orientation/consciousness: patient oriented x3 <EDIN Guadarrama - Last Filed: 10/05/20 12:13> Eyes Conjunctivae: conjunctivae normal <EDIN Guadarrama Last Filed: 10/05/20 12:13> Neck Neck: Yes normal visual inspection and Yes no JVD <EDIN Guadarrama - Last Filed: 10/05/20 12:13> Carotids: carotid upstroke abnormal <EDIN Guadarrama Last Filed: 10/05/20 12:13> Resp Other: Intermittent cough, reports white sputum <Vale OrtizJESÚS-C - Last Filed: 10/05/20 12:13> Effort & Inspection: normal respiratory effort, able to speak in complete sentences and not labored <Vale OrtizJESÚS-C - Last Filed: 10/05/20 12:13> Auscultation: clear to auscultation bilaterally (Diminished sounds posteriorly, no distinct rales noted), no rales, no rhonchi and no wheezes <Vale Ortiz [employer] TECHNICIAN-C - Last Filed: 10/05/20 12:13> Cardio Palpation: normal PMI <Vale Diana [facility] - Last Filed: 10/05/20 12:13> Rate: regular rate <Vale Diana [facility] - Last Filed: 10/05/20 12:13> Rhythm: regular rhythm <Vale Diana [facility] - Last Filed: 10/05/20 12:13> Heart sounds: S1 normal heart sound present and S2 normal heart sound present <Vale DianaJESÚS-C - Last Filed: 10/05/20 12:13> Peripheral pulses: Peripheral pulses 2+ throughout <Vale Diana [employer] TECHNICIAN-C - Last Filed: 10/05/20 12:13> GI Inspection: Yes normal to inspection <Vale OrtizJESÚS-C - Last Filed: 10/05/20 12:13> Neuro General: patient oriented x3 <Vale OrtizJESÚSC - Last Filed: 10/05/20 12:13> Extrem Other: Soft - no pitting edema in lower extremities - she reports that her legs are swollen. <Vale OrtizJESÚS-C - Last Filed: 10/05/20 12:13> General: Yes normal to inspection and No edema <Vale OrtizJESÚS-C - Last Filed: 10/05/20 12:13> Results Labs and Meds Result diagrams: : 10/04/20 07:04 10/05/20 04:06 <Vale Cadena DianaJESÚS-C - Last Filed: 10/05/20 12:13> Lab results: Laboratory Results - last 24 hr 10/04/20 10/04/20 10/04/20 07:40 12:58 15:45 Sodium Potassium Chloride Carbon Dioxide Anion Gap BUN Creatinine Estim Creat Clear Calc Estimated GFR POC Glucose 312 H 403 H* 419 H* Random Glucose Calcium Total Bilirubin Direct Bilirubin AST ALT Alkaline Phosphatase Total Protein Albumin Triglycerides Cholesterol LDL Cholesterol, Calc HDL Cholesterol Urine Color Urine Appearance Urine pH Ur Specific [place] Urine Protein Urine Glucose (UA) Urine Ketones Urine Blood Urine Nitrite Ur Leukocyte Esterase Urine RBC Urine WBC Ur Squamous Epith Cells Urine Bacteria Urine Yeast Acetone, Qual Respiratory Panel Law Adenovirus (Rapid PCR) B.pert (TEM-PCR) B.parapertussis DNA PCR C. pneumoniae DNA (PCR) Coronavirus OC43 (PCR) Coronavirus HKU1 (PCR) Coronavirus 229E (PCR) Coronavirus NL63 (PCR) HIV 1&2 Ab/P24 Ag 4thGn Human Metapneumovir PCR Influenza A (RT-PCR) Influenza B (RT-PCR) M. pneumoniae (PCR) Parainfluenza 1 (PCR) Parainfluenza 2 (PCR) Parainfluenza 3 (PCR) Parainfluenza 4 (PCR) RSV (PCR) Entero/Rhino (PCR) SARS-CoV-2 RNA (RT-PCR) 10/04/20 10/04/20 10/04/20 18:03 20:52 21:55 Sodium 124 L Potassium 4.8 Chloride 82 L Carbon Dioxide 31 H Anion Gap 16 BUN 32 H Creatinine 1.07 Estim Creat Clear Calc 55.2 Estimated GFR 55 POC Glucose 237 H 486 H* Random Glucose 618 H* Calcium 7.4 L Total Bilirubin 0.8 Direct Bilirubin 0.6 H AST 1397 H ALT 676 H Alkaline Phosphatase 174 H Total Protein 6.5 Albumin 3.3 L Triglycerides Cholesterol LDL Cholesterol, Calc HDL Cholesterol Urine Color Urine Appearance Urine pH Ur Specific [place] Urine Protein Urine Glucose (UA) Urine Ketones Urine Blood Urine Nitrite Ur Leukocyte Esterase Urine RBC Urine WBC Ur Squamous Epith Cells Urine Bacteria Urine Yeast Acetone, Qual Respiratory Panel Law Adenovirus (Rapid PCR) B.pert (TEM-PCR) B.parapertussis DNA PCR C. pneumoniae DNA (PCR) Coronavirus OC43 (PCR) Coronavirus HKU1 (PCR) Coronavirus 229E (PCR) Coronavirus NL63 (PCR) HIV 1&2 Ab/P24 Ag 4thGn Human Metapneumovir PCR Influenza A (RT-PCR) Influenza B (RT-PCR) M. pneumoniae (PCR) Parainfluenza 1 (PCR) Parainfluenza 2 (PCR) Parainfluenza 3 (PCR) Parainfluenza 4 (PCR) RSV (PCR) Entero/Rhino (PCR) SARS-CoV-2 RNA (RT-PCR) 10/04/20 10/04/20 10/04/20 22:21 23:14 23:35 Sodium 123 L Potassium 4.6 Chloride 83 L Carbon Dioxide 32 H Anion Gap 13 BUN 31 H Creatinine 1.10 Estim Creat Clear Calc 53.7 Estimated GFR 54 POC Glucose 503 H* Random Glucose 549 H* Calcium 7.1 L Total Bilirubin Direct Bilirubin AST ALT Alkaline Phosphatase Total Protein Albumin Triglycerides Cholesterol LDL Cholesterol, Calc HDL Cholesterol Urine Color Urine Appearance Urine pH Ur Specific [place] Urine Protein Urine Glucose (UA) Urine Ketones Urine Blood Urine Nitrite Ur Leukocyte Esterase Urine RBC Urine WBC Ur Squamous Epith Cells Urine Bacteria Urine Yeast Acetone, Qual Negative Respiratory Panel Law Adenovirus (Rapid PCR) B.pert (TEM-PCR) B.parapertussis DNA PCR C. pneumoniae DNA (PCR) Coronavirus OC43 (PCR) Coronavirus HKU1 (PCR) Coronavirus 229E (PCR) Coronavirus NL63 (PCR) HIV 1&2 Ab/P24 Ag 4thGn Nonreactive Human Metapneumovir PCR Influenza A (RT-PCR) Influenza B (RT-PCR) M. pneumoniae (PCR) Parainfluenza 1 (PCR) Parainfluenza 2 (PCR) Parainfluenza 3 (PCR) Parainfluenza 4 (PCR) RSV (PCR) Entero/Rhino (PCR) SARS-CoV-2 RNA (RT-PCR) 10/04/20 10/05/20 10/05/20 Unknown 00:02 01:00 Sodium Potassium Chloride Carbon Dioxide Anion Gap BUN Creatinine Estim Creat Clear Calc Estimated GFR POC Glucose 356 H* Random Glucose Calcium Total Bilirubin Direct Bilirubin AST ALT Alkaline Phosphatase Total Protein Albumin Triglycerides Cholesterol LDL Cholesterol, Calc HDL Cholesterol Urine Color STRAW Urine Appearance CLEAR Urine pH 6.5 Ur Specific [place] <= 1.005 Urine Protein NEG Urine Glucose (UA) >=1000 H Urine Ketones NEG Urine Blood 2+ H Urine Nitrite NEG Ur Leukocyte Esterase NEG Urine RBC 1-4 Urine WBC 0-2 Ur Squamous Epith Cells TRACE Urine Bacteria NONE Urine Yeast TRACE Acetone, Qual Respiratory Panel Law See Note Adenovirus (Rapid PCR) Not Detected B.pert (TEM-PCR) Not Detected B.parapertussis DNA PCR Not Detected C. pneumoniae DNA (PCR) Not Detected Coronavirus OC43 (PCR) Not Detected Coronavirus HKU1 (PCR) Not Detected Coronavirus 229E (PCR) Not Detected Coronavirus NL63 (PCR) Not Detected HIV 1&2 Ab/P24 Ag 4thGn Human Metapneumovir PCR Not Detected Influenza A (RT-PCR) Not Detected Influenza B (RT-PCR) Not Detected M. pneumoniae (PCR) Not Detected Parainfluenza 1 (PCR) Not Detected Parainfluenza 2 (PCR) Not Detected Parainfluenza 3 (PCR) Not Detected Parainfluenza 4 (PCR) Not Detected RSV (PCR) Not Detected Entero/Rhino (PCR) Not Detected SARS-CoV-2 RNA (RT-PCR) Not Detected 10/05/20 10/05/20 10/05/20 03:04 04:04 04:06 Sodium 128 L Potassium 4.3 Chloride 88 L Carbon Dioxide 31 H Anion Gap 13 BUN 30 H Creatinine 0.78 Estim Creat Clear Calc 75.7 Estimated GFR > 60 POC Glucose 202 H 136 H Random Glucose 133 H D Calcium 7.7 L D Total Bilirubin Direct Bilirubin AST ALT Alkaline Phosphatase Total Protein Albumin Triglycerides 153 Cholesterol 94 LDL Cholesterol, Calc 53 HDL Cholesterol 11 Urine Color Urine Appearance Urine pH Ur Specific [place] Urine Protein Urine Glucose (UA) Urine Ketones Urine Blood Urine Nitrite Ur Leukocyte Esterase Urine RBC Urine WBC Ur Squamous Epith Cells Urine Bacteria Urine Yeast Acetone, Qual Respiratory Panel Law Adenovirus (Rapid PCR) B.pert (TEM-PCR) B.parapertussis DNA PCR C. pneumoniae DNA (PCR) Coronavirus OC43 (PCR) Coronavirus HKU1 (PCR) Coronavirus 229E (PCR) Coronavirus NL63 (PCR) HIV 1&2 Ab/P24 Ag 4thGn Human Metapneumovir PCR Influenza A (RT-PCR) Influenza B (RT-PCR) M. pneumoniae (PCR) Parainfluenza 1 (PCR) Parainfluenza 2 (PCR) Parainfluenza 3 (PCR) Parainfluenza 4 (PCR) RSV (PCR) Entero/Rhino (PCR) SARS-CoV-2 RNA (RT-PCR) 04/12/2010/05/20 10/05/20 05:30 06:51 10:07 Sodium Potassium Chloride Carbon Dioxide Anion Gap BUN Creatinine Estim Creat Clear Calc Estimated GFR POC Glucose 133 H 131 H 471 H* Random Glucose Calcium Total Bilirubin Direct Bilirubin AST ALT Alkaline Phosphatase Total Protein Albumin Triglycerides Cholesterol LDL Cholesterol, Calc HDL Cholesterol Urine Color Urine Appearance Urine pH Ur Specific [place] Urine Protein Urine Glucose (UA) Urine Ketones Urine Blood Urine Nitrite Ur Leukocyte Esterase Urine RBC Urine WBC Ur Squamous Epith Cells Urine Bacteria Urine Yeast Acetone, Qual Respiratory Panel Law Adenovirus (Rapid PCR) B.pert (TEM-PCR) B.parapertussis DNA PCR C. pneumoniae DNA (PCR) Coronavirus OC43 (PCR) Coronavirus HKU1 (PCR) Coronavirus 229E (PCR) Coronavirus NL63 (PCR) HIV 1&2 Ab/P24 Ag 4thGn Human Metapneumovir PCR Influenza A (RT-PCR) Influenza B (RT-PCR) M. pneumoniae (PCR) Parainfluenza 1 (PCR) Parainfluenza 2 (PCR) Parainfluenza 3 (PCR) Parainfluenza 4 (PCR) RSV (PCR) Entero/Rhino (PCR) SARS-CoV-2 RNA (RT-PCR) 10/05/20 10/05/20 10:10 11:06 Sodium Potassium Chloride Carbon Dioxide Anion Gap BUN Creatinine Estim Creat Clear Calc Estimated GFR POC Glucose 470 H* 460 H* Random Glucose Calcium Total Bilirubin Direct Bilirubin AST ALT Alkaline Phosphatase Total Protein Albumin Triglycerides Cholesterol LDL Cholesterol, Calc HDL Cholesterol Urine Color Urine Appearance Urine pH Ur Specific [place] Urine Protein Urine Glucose (UA) Urine Ketones Urine Blood Urine Nitrite Ur Leukocyte Esterase Urine RBC Urine WBC Ur Squamous Epith Cells Urine Bacteria Urine Yeast Acetone, Qual Respiratory Panel Law Adenovirus (Rapid PCR) B.pert (TEM-PCR) B.parapertussis DNA PCR C. pneumoniae DNA (PCR) Coronavirus OC43 (PCR) Coronavirus HKU1 (PCR) Coronavirus 229E (PCR) Coronavirus NL63 (PCR) HIV 1&2 Ab/P24 Ag 4thGn Human Metapneumovir PCR Influenza A (RT-PCR) Influenza B (RT-PCR) M. pneumoniae (PCR) Parainfluenza 1 (PCR) Parainfluenza 2 (PCR) Parainfluenza 3 (PCR) Parainfluenza 4 (PCR) RSV (PCR) Entero/Rhino (PCR) SARS-CoV-2 RNA (RT-PCR) <EDIN Guadarrama - Last Filed: 10/05/20 12:13> Imaging Radiologist's impression: Impressions Pulmonary Perfusion Imaging 10/04/20 11:20 IMPRESSION: Very low probability of pulmonary embolism. Chest CTA 10/04/20 15:03 IMPRESSION: 1. No pulmonary embolism. 2. Unchanged appearance of the lungs with diffuse bilateral groundglass opacities. This again is most suggestive of pneumonia. Viral pneumonia could have this appearance. VTE: negative <EDIN Guadarrama - Last Filed: 10/05/20 12:13> Progress Note: A&P Assessment and plan (1) Acute respiratory failure with hypoxia: Status: Acute <EDIN Guadarrama - Last Filed: 10/05/20 12:13> Assessment and Plan: Extensive bilateral PNA with lactic acidosis and multiorgan strain/ involvement. Being followed by pulmonology, GI, cardiology. On steriods and antibiotics as directed by pulmonology. She reports improvement in breathing today. Still wearing O2 with cannula, Sat 94% on 3 liters. <EDIN Guadarrama - Last Filed: 10/05/20 12:13> Patient seen and examined. Case discussed with Vale. Patient feeling a lot better, however still requiring oxygen therapy. No chest pain. BNP is down trended. Liver enzymes have down trended. Creatinine is normalized. Patient currently being treated for pneumonia. Echocardiogram shows RV enlargement and dysfunction consistent with acute cor pulmonale. There is no evidence of pulmonary embolism. From cardiac perspective no further workup is indicated. Continue to manage her pulmonary condition and oxygen supplementation. Will follow up with echocardiogram in few weeks time to see if her RV systolic dysfunction and size have improved. This was discussed with the patient. No specific therapy recommended for the same. Will sign of the case. Thank you for allowing us to partake in her care <Souleymane Alvarenga MD - Last Filed: 10/05/20 14:29> (2) Pneumonia: Status: Acute <EDIN Guadarrama - Last Filed: 10/05/20 12:13> (3) Syncope: Status: Acute <EDIN Guadarrama - Last Filed: 10/05/20 12:13> Assessment and Plan: Prior to admit - most likely related to her acute illness and hypoxia. Tele has shown SR without ectopy. Echo shows normal EF. <EDIN Guadarrama - Last Filed: 10/05/20 12:13> (4) Elevated troponin: Status: Acute <Vale Tammi EDIN Ortiz - Last Filed: 10/05/20 12:13> Assessment and Plan: Elevated at 372, 258. EKG without acute ST/ T wave abn. No reports of CP. Echo shows EF 60-65%. grade I diastolic dysfunction, enlarged RV with reduced systolic function, mild to mod TR, borderline increase in RVSP. A CTA of chest showed no PE. Trop elevation related to hypoxia, RV strain. Does not appear to have acute HF on exam. Will check BNP today. Will review result and plan to sign off. Recall if needed. <EDIN Guadarrama - Last Filed: 10/05/20 12:13> (5) Multi-organ system dysfunction: Status: Acute <EDIN Guadarrama - Last Filed: 10/05/20 12:13> Fall Risk Details Current Medications: Current Medications Generic Name Dose Route Start Last Admin Trade Name Freq PRN Reason Stop Dose Admin Albuterol Sulfate 2 puff 10/04/20 05:14 Albuterol Sulfate 90 Mcg 8 Gm Inhaler INHALE Q6H PRN wheezing Albuterol/Ipratropium 3 ml 10/04/20 05:14 10/05/20 04:28 Albuterol/Iprat 2.5/0.5mg 3 Ml Ampul.Neb INHALE 3 ml RQID PRN Administration wheezing Azithromycin 500 mg 10/04/20 21:00 10/04/20 20:50 Azithromycin 500 Mg Tablet PO 500 mg Q24H SILKE Administration Benzonatate 100 mg 10/04/20 09:00 10/05/20 08:26 Benzonatate 100 Mg Capsule PO 100 mg TID SILKE Administration Sodium Chloride 1,000 mls @ 100 mls/hr 10/04/20 23:30 10/05/20 08:26 Ns IVCONT 100 mls/hr .Q10H SILKE Administration Insulin Glargine 20 unit 10/04/20 21:00 10/04/20 21:47 Insulin Glargine,Hum.Rec.Anlog 100 Unit/Ml 10 Ml Vial SUBCUT 20 unit BEDTIME SILKE Administration Insulin Human Lispro 0 unit 10/04/20 07:30 10/05/20 11:29 Insulin Lispro 100 Unit/Ml 3 Ml Vial SUBCUT 10 unit QIDACHS SILKE Administration Protocol Methylprednisolone Sodium Succinate 40 mg 10/05/20 21:00 Methylprednisolone Sod Succ 40 Mg/Ml Vial IV BID SILKE Sodium Chloride 3 ml 10/04/20 08:00 10/05/20 08:26 0.9 % Sodium Chloride Flush 3 Ml Syringe IVFLUSH 3 ml QSHIFT SILKE Administration Sodium Chloride 3 ml 10/04/20 08:00 10/05/20 08:26 0.9 % Sodium Chloride Flush 3 Ml Syringe IVFLUSH 3 ml QSHIFT SILKE Administration <EDIN Guadarrama - Last Filed: 10/05/20 12:13> Time Spent With Patient Time: Total time spent is greater than 50% in coordination of care (as documented) at patient's floor/unit and/or counseling patient: 19 <EDIN Guadarrama - Last Filed: 10/05/20 12:13> Time with patient: 15 - 24 minutes <EDIN Guadarrama - Last Filed: 10/05/20 12:13>
[2020-10-05 12:29] LABS: Glucose, Whole Blood 427 mg/dL (60-115)
[2020-10-05 12:54] LABS: Alanine Aminotransferase 560 U/L (0-31); Albumin Level 3.2 g/dL (3.5-5.0); Alkaline Phosphatase 162 U/L (39-117); Aspartate Amino Transferase 907 U/L (5-31); Bilirubin Direct 0.4 mg/dL (0.0-0.5); Bilirubin Total 0.6 mg/dL (0.0-1.0)
[2020-10-05 13:16] LABS: B Type Natriuretic Peptide 363 pg/mL (<100)
[2020-10-05 14:42] LABS: Glucose, Whole Blood 193 mg/dL (60-115)
--- NOTE | 2020-10-05 14:48 | PC.NURSE ---
Pt told by Dr. Gibson to bring in insulin pump from home. Pt insulin pump brought in by family member. Pt connected self to insulin pump. Dr. Gibson made aware, Pharmacist Heath made aware.
[2020-10-05 16:11] LABS: Glucose, Whole Blood 150 mg/dL (60-115)
[2020-10-05] MEDS: Subcutaneous Insulin Pump 1 EACH SUBCUT ×2 (16:34→20:49)
--- NOTE | 2020-10-05 18:11 | PC.NURSE ---
Pt 1800 blood sugar 190 via patients glucometer
[2020-10-05 20:18] LABS: Glucose, Whole Blood 136 mg/dL (60-115)
[2020-10-05] MEDS: methylPREDNISolone Sod Succ 40 MG/ML VIAL IV (20:42)
[2020-10-05] MEDS: Azithromycin 500 MG TABLET PO (22:14)
[2020-10-05 23:23] LABS: Alanine Aminotransferase 448 U/L (0-31); Albumin Level 3.2 g/dL (3.5-5.0); Alkaline Phosphatase 186 U/L (39-117); Aspartate Amino Transferase 392 U/L (5-31); Bilirubin Direct 0.4 mg/dL (0.0-0.5); Bilirubin Total 0.6 mg/dL (0.0-1.0); Total Protein 6.2 g/dL (6.5-8.0)
[2020-10-06] VITALS (19 sets, daily range): BP systolic 121–154; BP diastolic 60–96; PULSE 62–95; RESP 17–20; TEMP 36.1–36.8; O2SAT 87–97
[2020-10-06 00:24] LABS: Glucose, Whole Blood 243 mg/dL (60-115)
[2020-10-06] MEDS: 0.9 % Sodium Chloride Flush 3 ML SYRINGE IVFLUSH ×5 (00:29→21:13)
[2020-10-06] MEDS: Albuterol/Iprat 2.5/0.5MG 3 ML AMPUL.NEB INHALE ×3 (01:41→21:18)
[2020-10-06 02:49] LABS: Glucose, Whole Blood 250 mg/dL (60-115)
[2020-10-06 03:50] LABS: Glucose, Whole Blood 223 mg/dL (60-115)
[2020-10-06] MEDS: 0.9 % Sodium Chloride 1,000 ML 100 ML IVCONT ×2 (06:05→16:02)
[2020-10-06 06:17] LABS: Glucose, Whole Blood 218 mg/dL (60-115)
[2020-10-06 06:39] LABS: Anion Gap 14 (12-20); Blood Urea Nitrogen 26 mg/dL (9-16); Calcium 7.2 mg/dL (8.4-10.2); Carbon Dioxide 27 mmol/L (22-29); Chloride 91 mmol/L (96-108); Creatinine Clr Calc Pharmacy 86.9; Estimated Glomerular Filt Rate > 60; Glucose Random 219 mg/dL (60-115); Potassium 4.6 mmol/L (3.3-5.1); Sodium 127 mmol/L (135-145)
[2020-10-06 06:41] LABS: INTERNATIONAL NORM RATIO 1.1 (0.9-1.1); Prothrombin Time 13.4 SEC (10.8-13.0)
[2020-10-06 07:16] LABS: Glucose, Whole Blood 187 mg/dL (60-115)
[2020-10-06] MEDS: Subcutaneous Insulin Pump 1 EACH SUBCUT ×4 (07:30→21:16)
[2020-10-06] MEDS: methylPREDNISolone Sod Succ 40 MG/ML VIAL IV (09:02)
[2020-10-06] MEDS: Benzonatate 100 MG CAPSULE PO ×3 (09:02→21:12)
--- NOTE | 2020-10-06 10:17 | P.PNIM_ITS ---
Subjective Subjective Date of Service: 11/01/20 Interval History: Seen in f/u for acute resp failure, pnuemonitis, still on oxygen, sodium remain low, she feels more comfortable however Review of Systems as above Gen: no fever Resp: + sob, no cough CV: no chest, no PETTIT, no leg edema GI: No n/v, no abd pain Neuro: No confusion Constitutional Constitutional: Reports as per HPI, Reports no additional constitutional complaints, Denies body ache(s), Denies chills and Denies fever(s) Physical Exam Vital Signs: Vital Signs: Last Vital Signs Temp 97.3 F 10/06/20 07:44 Pulse 90 10/06/20 09:20 Resp 18 10/06/20 07:44 BP 127/71 10/06/20 09:06 Pulse Ox 87 L 10/06/20 08:53 Body Mass Index 27.3 General: AO X 3, no acute distress Resp:rhonchi CVS: S1,S2,RRR GI: +BS, NT, no distention Skin: No rash Neuro: motor grossly intact Psych: appropriate affect Objective Data Current Medications Generic Name Dose Route Start Last Admin Trade Name Freq PRN Reason Stop Dose Admin Albuterol Sulfate 2 puff 10/04/20 05:14 Albuterol Sulfate 90 Mcg 8 Gm Inhaler INHALE Q6H PRN wheezing Albuterol/Ipratropium 3 ml 10/04/20 05:14 10/06/20 09:20 Albuterol/Iprat 2.5/0.5mg 3 Ml Ampul.Neb INHALE 3 ml RQID PRN Administration wheezing Azithromycin 500 mg 10/04/20 21:00 10/05/20 22:14 Azithromycin 500 Mg Tablet PO 500 mg Q24H SILKE Administration Benzonatate 100 mg 10/04/20 09:00 10/06/20 09:02 Benzonatate 100 Mg Capsule PO 100 mg TID SILKE Administration Sodium Chloride 1,000 mls @ 100 mls/hr 10/04/20 23:30 10/06/20 06:05 Ns IVCONT 100 mls/hr .Q10H SILKE Administration Insulin Glargine 20 unit 10/04/20 21:00 10/05/20 22:12 Insulin Glargine,Hum.Rec.Anlog 100 Unit/Ml 10 Ml Vial SUBCUT Not Given BEDTIME SILKE Insulin Human Lispro 0 unit 10/04/20 07:30 10/06/20 07:34 Insulin Lispro 100 Unit/Ml 3 Ml Vial SUBCUT Not [facility] Protocol Insulin Pump 1 each 10/05/20 16:30 10/06/20 07:30 Subcutaneous Insulin Pump SUBCUT 1 each QIDACHS [facility] Administration Methylprednisolone Sodium Succinate 40 mg 10/05/20 21:00 10/06/20 09:02 Methylprednisolone Sod Succ 40 Mg/Ml Vial IV 40 mg BID SILKE Administration Sodium Chloride 3 ml 10/04/20 08:00 10/06/20 09:02 0.9 % Sodium Chloride Flush 3 Ml Syringe IVFLUSH 3 ml QSHIFT SILKE Administration Sodium Chloride 3 ml 10/04/20 08:00 10/06/20 09:02 0.9 % Sodium Chloride Flush 3 Ml Syringe IVFLUSH Not Given QSIDFT [facility] Labs CBC & Chem 7: 10/04/20 07:04 10/07/20 11:35 Microbiology Microbiology Results: Microbiology 10/03/20 22:37 Blood - Venous Blood Culture - Preliminary No growth after 48 hours. 10/03/20 22:29 Blood - Venous Blood Culture - Preliminary No growth after 48 hours. Assessment and Plan (1) Transaminitis: Status: Acute (2) Pneumonia: Problem details: Has bilateral interstitial pneumonitis type of picture, the radiologic picture is consistent with acute viral pneumonia vs acute interstitial lung disease. Clinically it is improving, Chest X ray , No significant improvement yet . Recc . Complete the course of Azithromycin . DC IV Solumedrol . Prednisone 20 mg daily for one week , then 10 mg daily for one week . Post discharge from the hospital she is the advised to go make appointment at our pulmonary department for follow-up. Status: Acute (3) Syncope: Status: Resolved (4) Diabetes: Assessment and Plan: 45 year female wit wit substance use, diabetes who presented with hypoxic, hyperglycemic syncope and found to transaminitis, elevated troponinin, 1. Acute hypoxic respiratory failure--exact cause unknown, possibly related to syncope, chemical pneumonitis. There is NO evidence of covid. Suspect possible chemical pneumonitis from subtance use. She is presently no longer hypoxi. Take off O2. There is no indication for antiboitics and therefore discontinued by ID. Continue Decadron . CT chest negaive for PE so empiric heparin discontinued 2. Tansaminitis--possible related to hypoxic related acute liver injury, but she also positive hepatitis C positive antibody. Get US of liver 3. HypOnatremia--etiology not sure, still low, get nephrology consult 4. Elevated troponin-no evidence coronorary disease, likely related to hypoxic injury, see cardiac eval for detail 5. Hyperglycemia--Self directed insulin pump use, glucose is better 6.
[2020-10-06 10:57] LABS: Myeloperoxidase Antibody <1.0 AI; Proteinase 3 PR3 Antibodies <1.0 AI
[2020-10-06 11:16] LABS: Glucose, Whole Blood 271 mg/dL (60-115)
--- NOTE | 2020-10-06 13:36 | MHC.CM.PN ---
cm continuing to follow no dc date at this time ..dc plans remain home no services
--- NOTE | 2020-10-06 14:17 | P.PNPL_ITS ---
Subjective Subjective Date of Service: 10/06/20 Principal diagnosis: RESP. DISTRESS / PNEUMONIA Interval history: THIS PATIENT CLAIMS TO BE FEELING BETTER AND ACTUALLY IS QUITE ANXIOUS TO GO HOME. HOWEVER SHE IS STILL ON OXYGEN THERAPY, IN ADDITION TO OTHER IV MEDS. SHE DENIES ANY RESPIRATORY DISTRESS, AND REMAINS AFEBRILE. HOWEVER SHE DOES HAVE INTERMITTENT COUGH WHICH IS MOSTLY NONPRODUCTIVE. Objective Data Labs CBC & Chem 7: 10/04/20 07:04 10/06/20 05:36 Labs: Laboratory Results - last 24 hr 10/04/20 10/04/20 10/05/20 21:55 21:55 14:37 PT INR Sodium Potassium Chloride Carbon Dioxide Anion Gap BUN Creatinine Estim Creat Clear Calc Estimated GFR POC Glucose 193 H Random Glucose Calcium Total Bilirubin Direct Bilirubin AST ALT Alkaline Phosphatase Total Protein Albumin Proteinase 3 (PR3) Ab <1.0 Myeloperoxidase Ab <1.0 Cryptococcal Ag SEE NOTE 10/05/20 10/05/20 10/05/20 15:59 19:36 22:01 PT INR Sodium Potassium Chloride Carbon Dioxide Anion Gap BUN Creatinine Estim Creat Clear Calc Estimated GFR POC Glucose 150 H 136 H Random Glucose Calcium Total Bilirubin 0.6 Direct Bilirubin 0.4 AST 392 H ALT 448 H Alkaline Phosphatase 186 H Total Protein 6.2 L Albumin 3.2 L Proteinase 3 (PR3) Ab Myeloperoxidase Ab Cryptococcal Ag 10/06/20 10/06/20 10/06/20 00:12 02:45 03:46 PT INR Sodium Potassium Chloride Carbon Dioxide Anion Gap BUN Creatinine Estim Creat Clear Calc Estimated GFR POC Glucose 243 H 250 H 223 H Random Glucose Calcium Total Bilirubin Direct Bilirubin AST ALT Alkaline Phosphatase Total Protein Albumin Proteinase 3 (PR3) Ab Myeloperoxidase Ab Cryptococcal Ag 10/06/20 10/06/20 10/06/20 05:36 05:36 06:08 PT 13.4 H INR 1.1 Sodium 127 L Potassium 4.6 Chloride 91 L Carbon Dioxide 27 Anion Gap 14 BUN 26 H Creatinine 0.68 Estim Creat Clear Calc 86.9 Estimated GFR > 60 POC Glucose 218 H Random Glucose 219 H D Calcium 7.2 L D Total Bilirubin Direct Bilirubin AST ALT Alkaline Phosphatase Total Protein Albumin Proteinase 3 (PR3) Ab Myeloperoxidase Ab Cryptococcal Ag 10/06/20 10/06/20 07:12 11:00 PT INR Sodium Potassium Chloride Carbon Dioxide Anion Gap BUN Creatinine Estim Creat Clear Calc Estimated GFR POC Glucose 187 H 271 H Random Glucose Calcium Total Bilirubin Direct Bilirubin AST ALT Alkaline Phosphatase Total Protein Albumin Proteinase 3 (PR3) Ab Myeloperoxidase Ab Cryptococcal Ag Microbiology Microbiology Results: Microbiology 10/03/20 22:37 Blood - Venous Blood Culture - Preliminary No growth after 48 hours. 10/03/20 22:29 Blood - Venous Blood Culture - Preliminary No growth after 48 hours. Review of Systems Review of Systems Yes all other systems are reviewed and are negative Physical Exam Vital Signs: Vital Signs: Last Vital Signs Temp 97.8 F 10/06/20 11:49 Pulse 77 10/06/20 11:49 Resp 18 10/06/20 11:49 BP 144/88 H 10/06/20 11:49 Pulse Ox 92 10/06/20 11:49 Body Mass Index 27.3 Const: Other: Sick-looking and slightly short of breath during conversation. General: comfortable, no acute distress, alert and awake Orientation/consciousness: patient oriented x3 HENMT: Head: Yes normal to inspection General nose exam: No nasal polyps p resent and No nasal discharge present Face and sinus: Yes sinuses nontender Mouth: oropharynx normal Throat: Yes posterior oropharynx normal Eyes: General: appearance normal, both eyes and all related structures Neck: Neck: Yes normal visual inspection, Yes no lymphadenopathy, Yes trachea midline and Yes no JVD Thyroid: Thyroid normal Chest: Chest palpation & inspection: normal inspection of the chest and normal palpation of entire chest wall Resp: Other: Breath sounds are somewhat distant, but she does have good a eration on both sides. No wheezes are heard. A few fine inspiratory crackles over the lower lobes. Cardio: Palpation: normal PMI Rate: regular rate Rhythm: regular rhythm Heart sounds: no gallops and no murmurs Peripheral pulses: Peripheral pulses 2+ throughout GI: Palpation (GI): Soft to palpation, nontender, No hepatosplenomegaly present and no masses Auscultation: normal bowel sounds Back/Spine/Pelvis: Thoracic/Lumbar Spine: thoracic and lumbar spine normal to inspection Skin: General skin exam: no rashes or lesions noted Neuro: General: patient oriented x3 and no focal motor deficits Cranial nerves: Yes CN's II-XII intact bilaterally Extrem: General: Yes normal to inspection, Yes no clubbing, cyanosis or edema, Yes no calf tenderness and No venous stasis dermatitis Psych: Speech and movement: Normal speech and movement present Assessment and Plan Assessment and plan (1) Pneumonia: Problem details: Has bilateral interstitial pneumonitis type of picture, the radiologic picture is consistent with acute viral pneumonia worse is acute interstitial lung disease. Clinically it is improving. Continue present antibiotic coverage. Continue IV Solu-Medrol but dozes reduced to 20 mg b.i.d. for 1 day then may be changed to oral prednisone. Repeat chest x-ray tomorrow to see if the pneumonitis is starting to resolve. Status: Acute (2) Acute respiratory failure with hypoxia: Problem details: Patient being treated for hypoxemia. She is on oxygen 4 L/minute by nasal cannula. Should try to wean her down, with the goal to keep O2 sat 90% or above, Status: Acute Time Spent With Patient Time: Total time spent is greater than 50% in coordination of care (as documented) at patient's floor/unit and/or counseling patient: Time with patient: 15 - 24 minutes
--- NOTE | 2020-10-06 15:37 | PM.PNNEP ---
Subjective Subjective Date of Service: 10/08/20 Principal diagnosis: RESP. DISTRESS / PNEUMONIA Interval history: Pt seen Physical Exam Vital Signs: Vital Signs: Last Vital Signs Temp 97 F 10/06/20 15:32 Pulse 78 10/06/20 15:34 Resp 18 10/06/20 15:32 BP 137/71 10/06/20 15:34 Pulse Ox 90 L 10/06/20 15:32 Body Mass Index 27.3 Const: General: ill appearing Orientation/consciousness: patient oriented x3 Eyes: Eyelids: Yes eyelids normal Neck: Neck: Yes supple Chest: Chest palpation & inspection: normal inspection of the chest Resp: Auscultation: rhonchi and diminished lung sounds Cardio: Jugular venous distension: no JVD Heart sounds: no rubs GI: Palpation (GI): Soft to palpation Auscultation: normal bowel sounds Neuro: General: patient oriented x3 Motor exam (neuro): No Asterixis during motor activity present Objective Data Labs CBC & Chem 7: 10/04/20 07:04 10/07/20 11:35 Labs: Laboratory Results - last 24 hr 10/04/20 10/04/20 10/05/20 21:55 21:55 15:59 PT INR Sodium Potassium Chloride Carbon Dioxide Anion Gap BUN Creatinine Estim Creat Clear Calc Estimated GFR POC Glucose 150 H Random Glucose Calcium Total Bilirubin Direct Bilirubin AST ALT Alkaline Phosphatase Total Protein Albumin Proteinase 3 (PR3) Ab <1.0 Myeloperoxidase Ab <1.0 Cryptococcal Ag SEE NOTE 10/05/20 10/05/20 10/06/20 19:36 22:01 00:12 PT INR Sodium Potassium Chloride Carbon Dioxide Anion Gap BUN Creatinine Estim Creat Clear Calc Estimated GFR POC Glucose 136 H 243 H Random Glucose Calcium Total Bilirubin 0.6 Direct Bilirubin 0.4 AST 392 H ALT 448 H Alkaline Phosphatase 186 H Total Protein 6.2 L Albumin 3.2 L Proteinase 3 (PR3) Ab Myeloperoxidase Ab Cryptococcal Ag 10/06/20 10/06/20 10/06/20 02:45 03:46 05:36 PT 13.4 H INR 1.1 Sodium Potassium Chloride Carbon Dioxide Anion Gap BUN Creatinine Estim Creat Clear Calc Estimated GFR POC Glucose 250 H 223 H Random Glucose Calcium Total Bilirubin Direct Bilirubin AST ALT Alkaline Phosphatase Total Protein Albumin Proteinase 3 (PR3) Ab Myeloperoxidase Ab Cryptococcal Ag 10/06/20 10/06/2021 05:36 06:08 07:12 PT INR Sodium 127 L Potassium 4.6 Chloride 91 L Carbon Dioxide 27 Anion Gap 14 BUN 26 H Creatinine 0.68 Estim Creat Clear Calc 86.9 Estimated GFR > 60 POC Glucose 218 H 187 H Random Glucose 219 H D Calcium 7.2 L D Total Bilirubin Direct Bilirubin AST ALT Alkaline Phosphatase Total Protein Albumin Proteinase 3 (PR3) Ab Myeloperoxidase Ab Cryptococcal Ag 10/06/20 11:00 PT INR Sodium Potassium Chloride Carbon Dioxide Anion Gap BUN Creatinine Estim Creat Clear Calc Estimated GFR POC Glucose 271 H Random Glucose Calcium Total Bilirubin Direct Bilirubin AST ALT Alkaline Phosphatase Total Protein Albumin Proteinase 3 (PR3) Ab Myeloperoxidase Ab Cryptococcal Ag Microbiology Microbiology Results: Microbiology 10/03/20 22:37 Blood - Venous Blood Culture - Preliminary No growth after 48 hours. 10/03/20 22:29 Blood - Venous Blood Culture - Preliminary No growth after 48 hours. Assessment & Plan Time Spent With Patient Time: Consult Dictated Thanks Total time spent is greater than 50% in coordination of care (as documented) at patient's floor/unit and/or counseling patient:
[2020-10-06 16:20] LABS: Glucose, Whole Blood 229 mg/dL (60-115)
[2020-10-06 17:56] LABS: Creatinine Urine 24.45 mg/dL; Total Protein Urine Random 10 mg/dL (<12)
[2020-10-06 18:10] LABS: Sodium Urine Random < 20.0 mmol/L
[2020-10-06 18:55] LABS: Osmolality Urine 317 mosm/kg (373-1093)
[2020-10-06] MEDS: Azithromycin 500 MG TABLET PO (21:12)
[2020-10-06] MEDS: methylPREDNISolone Sod Succ 40 MG/ML VIAL 20 MG IV (21:12)
[2020-10-06] MEDS: SUMAtriptan succinate 50 MG TABLET PO (23:00)
[2020-10-07] VITALS: PULSE 82
[2020-10-07] MEDS: 0.9 % Sodium Chloride 1,000 ML 100 ML IVCONT (02:10)
[2020-10-07] MEDS: 0.9 % Sodium Chloride Flush 3 ML SYRINGE IVFLUSH ×3 (02:11→08:55)
[2020-10-07 04:00] VITALS: BP 127/69; PULSE 66; RESP 20; TEMP 36.6; O2SAT 92
[2020-10-07 06:24] LABS: Osmolality, Serum 280 mosm/kg (281-305)
[2020-10-07 07:58] VITALS: BP 158/75; PULSE 62; RESP 18; TEMP 36.6; O2SAT 92
[2020-10-07 08:04] LABS: Glucose, Whole Blood 98 mg/dL (60-115)
[2020-10-07] MEDS: Subcutaneous Insulin Pump 1 EACH SUBCUT ×2 (08:36→12:25)
[2020-10-07] MEDS: Benzonatate 100 MG CAPSULE PO (08:53)
[2020-10-07] MEDS: methylPREDNISolone Sod Succ 40 MG/ML VIAL 20 MG IV (08:54)
--- NOTE | 2020-10-07 09:53 | PM.PNPUL ---
Subjective Subjective Date of Service: 10/07/20 Principal diagnosis: RESP. DISTRESS / PNEUMONIA Interval history: CONTINUES TO FEEL BETTER, REMAINS AFEBRILE, SINCE THIS MORNING SHE IS OFF OXYGEN WALKS AROUND IN THE ROOM WITHOUT GETTING SHORT OF BREATH. HAS MINIMAL COUGH OR EXPECTORATION. ALSO DENIES ANY CHEST PAIN. Objective Data Labs CBC & Chem 7: 10/04/20 07:04 10/06/20 05:36 Labs: Laboratory Results - last 24 hr 10/04/20 10/06/20 10/06/20 21:55 11:00 16:12 POC Glucose 271 H 229 H Osmolality Urine Osmolality U Random Total Protein Ur Random Sodium Urine Creatinine Proteinase 3 (PR3) Ab <1.0 Myeloperoxidase Ab <1.0 10/06/20 10/06/20 10/06/20 16:45 16:45 16:45 POC Glucose Osmolality Urine Osmolality 317 L U Random Total Protein Ur Random Sodium Cancelled Urine Creatinine Cancelled Proteinase 3 (PR3) Ab Myeloperoxidase Ab 10/06/20 10/07/20 10/07/20 16:46 05:28 08:00 POC Glucose 98 Osmolality 280 L Urine Osmolality U Random Total Protein 10 Ur Random Sodium < 20.0 Urine Creatinine 24.45 Proteinase 3 (PR3) Ab Myeloperoxidase Ab Microbiology Microbiology Results: Microbiology 10/03/20 22:37 Blood - Venous Blood Culture - Preliminary No growth after 48 hours. 10/03/20 22:29 Blood - Venous Blood Culture - Preliminary No growth after 48 hours. Review of Systems Review of Systems Yes all other systems are reviewed and are negative Physical Exam Vital Signs: Vital Signs: Last Vital Signs Temp 97.9 F 10/07/20 07:58 Pulse 62 10/07/20 07:58 Resp 18 10/07/20 07:58 BP 158/75 H 10/07/20 07:58 Pulse Ox 92 10/07/20 07:58 Body Mass Index 27.3 Const: General: comfortable, no acute distress, alert and awake Orientation/consciousness: patient oriented x3 HENMT: Head: Yes normal to inspection General nose exam: No nasal polyps present and No nasal discharge present Face and sinus: Yes sinuses nontender Mouth: oropharynx normal Throat: Yes posterior oropharynx normal Eyes: General: appearance normal, both eyes and all related structures Neck: Neck: Yes normal visual inspection, Yes no lymphadenopathy, Yes trachea midline and Yes no JVD Thyroid: Thyroid normal Chest: Chest palpation & inspection: normal inspection of the chest and normal palpation of entire chest wall Resp: Other: Percussion note is resonant, breath sounds remain distant, with poor aeration over the lower lobes, a few fine inspiratory Creps heard over the basilar areas. Cardio: Palpation: normal PMI Rate: regular rate Rhythm: regular rhythm Heart sounds: no gallops and no murmurs Peripheral pulses: Peripheral pulses 2+ throughout GI: Palpation (GI): Soft to palpation, nontender, No hepatosplenomegaly present and no masses Auscultation: normal bowel sounds Back/Spine/Pelvis: Thoracic/Lumbar Spine: thoracic and lumbar spine normal to inspection Skin: General skin exam: no rashes or lesions noted Neuro: General: patient oriented x3 and no focal motor deficits Cranial nerves: Yes CN's II-XII intact bilaterally Extrem: General: Yes normal to inspection, Yes no clubbing, cyanosis or edema, Yes no calf tenderness and No venous stasis dermatitis Psych: Appearance: grossly normal and well kempt Speech and movement: Normal speech and movement present Assessment and Plan Assessment and plan (1) Pneumonia: Problem details: Has bilateral interstitial pneumonitis type of picture, the radiologic picture is consistent with acute viral pneumonia vs acute interstitial lung disease. Clinically it is improving, Chest X ray , No significant improvement yet . Recc . Complete the course of Azithromycin . DC IV Solumedrol . Prednisone 20 mg daily for one week , then 10 mg daily for one week . Post discharge from the hospital she is the advised to go make appointment at our pulmonary department for follow-up. Status: Acute (2) Acute respiratory failure with hypoxia: Problem details: She had significant hypoxemia and has been treated with oxygen supplementation. At present to weaned off oxygen and is doing fairly well. So she may be discharged home without oxygen at this time. Status: Acute Time Spent With Patient Time: Total time spent is greater than 50% in coordination of care (as documented) at patient's floor/unit and/or counseling patient: Time with patient: 15 - 24 minutes
[2020-10-07 11:20] LABS: Glucose, Whole Blood 164 mg/dL (60-115)
--- NOTE | 2020-10-07 11:52 | CONS_ITS ---
DATE OF SERVICE: 10/06/2020 REASON FOR CONSULTATION: I was called to see this patient to assist in the management of acute kidney injury and hyponatremia. HISTORY OF PRESENT ILLNESS: To summarize, Jenni is a 45-year-old woman with a history of longstanding diabetes mellitus, requiring insulin. She has a history of IV drug abuse with relapse in August, and she was admitted because of syncopal episode. According to her, she had high blood sugars at home and her was at the bedside, who was contradicting her statements. At the time of admission, she had a serum creatinine of 1.65 mg/dL with a serum sodium of 128. Over the last few days with IV hydration, serum creatinine has improved significantly, but the serum sodium has been fluctuating and the recent sodium was 126 and hence this consultation. The blood sugar at home was reportedly around 600 mg/dL, but for the last few days, the blood pressures have been in the mid 200s while she is in the hospital. Upon reviewing the records, she has had hyponatremia in the past and serum sodium has been in the low 130s. PAST MEDICAL HISTORY: Ongoing medical problems include diabetes mellitus, asthma, history of chronic hyponatremia. PAST SURGICAL HISTORY: Includes tubal ligation. ALLERGIES: SHE IS ALLERGIC TO IBUPROFEN, WHICH CAUSES LIGHTHEADEDNESS. HOME MEDICATIONS: Include albuterol, fluticasone, lovastatin, nystatin, not on any antihypertensives. All the current medications were reviewed. REVIEW OF SYSTEMS: Reveal no headache, nausea, or vomiting. No abdominal pain, diarrhea, or constipation. No urinary symptoms. No fever. No rash. Has had edema. PHYSICAL EXAMINATION: GENERAL: Today, Jenni appears comfortable. She is overweight. VITAL SIGNS: Blood pressure 110/60, pulse 90, temperature 98.2. HEENT: Mucosa moist. LUNGS: Bilateral scattered rhonchi. HEART: S1, S2 heard. No gallop. ABDOMEN: Soft, nontender. EXTREMITIES: 1+ edema bilaterally. NEUROLOGIC: Alert, awake, oriented. No asterixis. No rash. No clubbing. LABORATORY DATA: All the labs were reviewed. The recent hemoglobin is 11.0, platelet count of 190,000. Sodium 127, potassium 4.6, BUN 26, creatinine 0.68. Blood sugar 219, calcium 7.2, AST and ALT were elevated. Serum albumin 3.2. Urine showed glycosuria, specific gravity less than 1.005 as of yesterday. INR 1.1. IMPRESSION: 45-year-old woman with diabetes mellitus and drug abuse with chronic asymptomatic hyponatremia. Jenni has chronic hyponatremia. There has been a decrease in the serum sodium and the urine specific gravity less than 1.005. This is supportive of excessive free water intake and I suspect she probably has polydipsia. RECOMMENDATIONS: My recommendation is to obtain a spot urine for sodium, creatinine, protein, osmolality, and serum osmolality. We will check the serum cortisol level and TSH for completion. I would discontinue the IV fluids and restrict the free water intake to 1 L per 24 hours. She does have some edema and she will benefit from a small dose of loop diuretic. Loop diuretic should increase the free water clearance and correct hyponatremia. Goal is to correct the serum sodium at a rate of 0.5 millimoles per liter per hour and not more than 10 millimoles in the 24 hour period. We will follow along with the team. MD CORY Hou/MODL / [id number]
[2020-10-07 12:17] LABS: Alanine Aminotransferase 254 U/L (0-31); Albumin Level 3.3 g/dL (3.5-5.0); Alkaline Phosphatase 161 U/L (39-117); Anion Gap 12 (12-20); Aspartate Amino Transferase 71 U/L (5-31); Bilirubin Direct 0.3 mg/dL (0.0-0.5); Bilirubin Total 0.5 mg/dL (0.0-1.0); Blood Urea Nitrogen 20 mg/dL (9-16); Calcium 7.8 mg/dL (8.4-10.2); Carbon Dioxide 27 mmol/L (22-29); Chloride 98 mmol/L (96-108); Creatinine Clr Calc Pharmacy 85.6; Estimated Glomerular Filt Rate > 60; Glucose Random 143 mg/dL (60-115); Potassium 5.1 mmol/L (3.3-5.1); Sodium 132 mmol/L (135-145); Total Protein 6.3 g/dL (6.5-8.0)
--- NOTE | 2020-10-07 12:48 | PM.PNNEP ---
Subjective Subjective Date of Service: 10/08/20 Principal diagnosis: RESP. DISTRESS / PNEUMONIA Interval history: Events noted Na is improving Physical Exam Vital Signs: Vital Signs: Last Vital Signs Temp 97.9 F 10/07/20 07:58 Pulse 62 10/07/20 07:58 Resp 18 10/07/20 07:58 BP 158/75 H 10/07/20 07:58 Pulse Ox 92 10/07/20 07:58 Body Mass Index 27.3 Const: General: comfortable Neck: Neck: Yes supple Resp: Auscultation: clear to auscultation bilaterally Cardio: Heart sounds: no murmurs and no rubs GI: Palpation (GI): Soft to palpation Auscultation: normal bowel sounds Neuro: Gait exam (Neuro): not ataxic Objective Data Labs CBC & Chem 7: 10/04/20 07:04 10/07/20 11:35 Labs: Laboratory Results - last 24 hr 10/06/20 10/06/20 10/06/20 16:12 16:45 16:45 Sodium Potassium Chloride Carbon Dioxide Anion Gap BUN Creatinine Estim Creat Clear Calc Estimated GFR POC Glucose 229 H Random Glucose Osmolality Calcium Total Bilirubin Direct Bilirubin AST ALT Alkaline Phosphatase Total Protein Albumin Urine Osmolality 317 L U Random Total Protein Ur Random Sodium Cancelled Urine Creatinine 10/06/20 10/06/20 10/07/20 16:45 16:46 05:28 Sodium Potassium Chloride Carbon Dioxide Anion Gap BUN Creatinine Estim Creat Clear Calc Estimated GFR POC Glucose Random Glucose Osmolality 280 L Calcium Total Bilirubin Direct Bilirubin AST ALT Alkaline Phosphatase Total Protein Albumin Urine Osmolality U Random Total Protein 10 Ur Random Sodium < 20.0 Urine Creatinine Cancelled 24.45 10/07/20 10/07/20 10/07/20 08:00 11:16 11:35 Sodium 132 L Potassium 5.1 Chloride 98 Carbon Dioxide 27 Anion Gap 12 BUN 20 H Creatinine 0.69 Estim Creat Clear Calc 85.6 Estimated GFR > 60 POC Glucose 98 164 H Random Glucose 143 H Osmolality Calcium 7.8 L D Total Bilirubin 0.5 Direct Bilirubin 0.3 AST 71 H ALT 254 H Alkaline Phosphatase 161 H Total Protein 6.3 L Albumin 3.3 L Urine Osmolality U Random Total Protein Ur Random Sodium Urine Creatinine Microbiology Microbiology Results: Microbiology 10/03/20 22:37 Blood - Venous Blood Culture - Preliminary No growth after 48 hours. 10/03/20 22:29 Blood - Venous Blood Culture - Preliminary No growth after 48 hours. Assessment & Plan Assessment and plan (1) Hyponatremia: Problem details: Hypotonic hyponatremia Due to excessive water intake Urine Osm elevated at 315 Urine Na << 20 : suggesetive of hypoperfusion Na improved to 132 with hydration with NS Suggest: Restrict PO water intake to 1.2L per 24 hrs Check pNA in a week OK to DC Status: Acute Time Spent With Patient Time: Total time spent is greater than 50% in coordination of care (as documented) at patient's floor/unit and/or counseling patient:
--- NOTE | 2020-10-07 13:19 | MHC.CM.PN ---
CM met with pt this morning. She reports she lives with her S/O and is independent wtih all care and mobility. Pt reports she has a nebulizer and an insulin pump at home and both are in working order. Pt reports she has a HCP naming her S/O as her agent and she has a PCP (Jl). Pt will DC home today with no services Pt will arrange transport
--- NOTE | 2020-10-07 13:27 | P.DS_ITS ---
DS: Providers Provider Date of Service: 10/07/20 Date of admission: 10/04/20 05:09 Primary care physician: Unknown Physician Consults: 10/04/20 05:09 Consult to Cardiology Routine Consulting Provider: Gama Hurst Reason for consultation: elevated troponin Consult to Gastroenterology Routine Consulting Provider: Cindy Contreras Reason for consultation: Transaminitis 10/04/20 05:13 Consult to Infectious Diseases Routine Consulting Provider: Manasa Otero Reason for consultation: PNA-> ?COVID vs Aspiration 10/04/20 05:38 Consult to Pulmonology Routine Consulting Provider: Danis Lira Reason for consultation: hypoxia; hx IVDA; GGO on CT chest 10/06/20 10:27 Consult to Nephrology Routine Consulting Provider: Christian Sanders Reason for consultation: hyponatremia DS: Diagnosis Discharge Diagnosis (1) Hyponatremia: Status: Acute Problem details: Hypotonic hyponatremia Due to excessive water intake Urine Osm elevated at 315 Urine Na << 20 : suggesetive of hypoperfusion Na improved to 132 with hydration with NS Suggest: Restrict PO water intake to 1.2L per 24 hrs Check pNA in a week OK to DC DS: Medications Discharge Medications Home Medications: Home Medications Medication Instructions Recorded Confirmed Flovent HFA 2 puff PO BID 10/04/20 10/04/20 albuterol sulfate 2 puff INHALATION Q6H PRN 10/04/20 10/04/20 aspirin 81 mg PO DAILY 10/04/20 10/04/20 insulin lispro [Admelog U-100 80 unit SUBCUT DAILY 10/04/20 10/04/20 Insulin lispro] ipratropium-albuterol 1 vial INHALATION Q6H PRN 10/04/20 10/04/20 nystatin 5 ml PO QID 10/04/20 10/04/20 subcutaneous insulin pump 10/04/20 10/04/20 sumatriptan succinate 50 mg PO DAILY PRN 10/04/20 10/04/20 Previous Rx's Medication Instructions Recorded azithromycin 500 mg PO Q24H #2 tab 10/07/20 benzonatate 100 mg PO TID #20 cap 10/07/20 prednisone 10 mg PO DAILY #7 tab 10/07/20 prednisone 20 mg PO DAILY #7 tab 10/07/20 DS: Summary Hospital Course Hospital Course: History of presenting illness Chief Complaint: Syncope 45-year-old female with a past medical history of asthma, diabetes on insulin pump, history of IV drug abuse relapse in August presented to the hospital with a chief complaint of syncope. Reportedly patient mentioned that she has been doing okay until 2 days ago; yesterday she mentioned that she has been having high blood glucose levels all day when she checked her pump which is insulin was knotted administered; subsequently she made some changes and has given insulin. Later she went to the bathroom and subsequently had a syncopal episode. EMS was called in and brought her to the hospital for further evaluation. When the EMS arrived patient was hypoxic to 40s. Placed on a non- rebreather. In the ER patient was noted to be saturating 80% on room air subsequently placed on supplemental oxygen with improvement in oxygenation. Patient was not in respiratory distress per the ER team. Patient's fingerstick glucose was noted to be 92 and on the basic metabolic panel the glucose was 72. Chest x-ray showed multifocal infiltrates. COVID-19 negative. On the labs noted to have severely elevated liver enzymes with negative salicylates and Tylenol. Also noted to have elevated troponins but patient denied any chest pain and EKG was nonischemic; ER team spoke with Cardiology they recommended to start the patient on heparin drip. ER team also spoke to Dr. Rose from Gastroenterology who recommended admission to the [facility] and he will evaluate the patient in the morning. Patient denied any chest pain palpitations lightheadedness or dizziness. Review of all other systems is negative except mentioned above Hospital course 45 year female wit wit substance use, diabetes who presented with hypoxic, hyperglycemic syncope and found to transaminitis, elevated troponinin, 1. Acute hypoxic respiratory failure--case remains unknown but likely related to acute viral pneumonia versus acute interstitial lung disease, or chemical pneumonitis from substance abuse, COVID 19 test came back negative, CT chest negative for PE, patient treated with IV steroids and IV azithromycin she has been weaned off of oxygen patient was followed closely by Dr. Lira he recommend to discharge patient home on by mouth prednisone tapering dose and to finish course of azithromycin patient has been recommended to have outpatient follow-up with pulmonology and PCP 2. Tansaminitis--possible related to hypoxic related acute liver injury, use of illicit drugs and hepatitis C positive antibody, LFTs trended down will hold statin strongly recommend to abstain from illicit drug use and to have outpatient follow-up with repeat liver panel in next 2-3 weeks. 3. Hyponatremia--patient's sodium improved from 125-132 by Nephrology patient has hypotonic hyponatremia likely due to excessive fluid intake she is being discharged home on fluid restriction of 1 L in 24 hrs. 4. Elevated troponin-no evidence coronorary disease, EKG showed no acute ST or T-wave abnormality patient had no chest pain, likely related to hypoxic injury, patient evaluated by Cardiology and they are recommending outpatient follow-up with echocardiogram in few weeks to assess her right ventricular systolic dysfunction. Echo showed EF 60-65% and impaired relaxation filling pattern right ventricular cavity size was noted to be moderately increased with mildly decreased right ventricular systolic function. 5. Hyperglycemia--blood sugar improved a resume insulin pump 6. Syncope no acute cause of syncope found tele monitor showed no arrhythmia, normal orthostatic BP, CT head and C-spine showed no acute abnormality, blood sugars were fluctuating likely cause of syncope vs Hypoxia and multi organ dysfunction.. Time Spent with Patient Time attestation: Total time spent providing and/or coordinating discharge services: Discharge coordination time: Greater than 30 minutes Physical Exam Vital Signs: Vital Signs: Last Vital Signs Temp 97.9 F 10/07/20 07:58 Pulse 62 10/07/20 07:58 Resp 18 10/07/20 07:58 BP 158/75 H 10/07/20 07:58 Pulse Ox 92 10/07/20 07:58 Body Mass Index 27.3 General patient ambulating in room in no acute distress. Neck is supple no JVD. CVS regular rate rhythm, Respiratory lungs clear to auscultation, no respiratory distress, no wheeze, no rhonchi. Gastrointestinal abdomen soft, nontender, bowel sounds audible, no guarding , no rigidity. Extremities no clubbing cyanosis or edema. Neuro nonfocal patient moving all 4 extremity speech clear. Skin no rash DS: Data Data Completed and Pending Labs on day of discharge: Laboratory Results - last 24 hr 10/06/20 10/06/20 10/06/20 16:12 16:45 16:45 Sodium Potassium Chloride Carbon Dioxide Anion Gap BUN Creatinine Estim Creat Clear Calc Estimated GFR POC Glucose 229 H Random Glucose Osmolality Calcium Total Bilirubin Direct Bilirubin AST ALT Alkaline Phosphatase Total Protein Albumin Urine Osmolality 317 L U Random Total Protein Ur Random Sodium Cancelled Urine Creatinine 10/06/20 10/06/20 10/07/20 16:45 16:46 05:28 Sodium Potassium Chloride Carbon Dioxide Anion Gap BUN Creatinine Estim Creat Clear Calc Estimated GFR POC Glucose Random Glucose Osmolality 280 L Calcium Total Bilirubin Direct Bilirubin AST ALT Alkaline Phosphatase Total Protein Albumin Urine Osmolality U Random Total Protein 10 Ur Random Sodium < 20.0 Urine Creatinine Cancelled 24.45 10/07/20 10/07/20 10/07/20 08:00 11:16 11:35 Sodium 132 L Potassium 5.1 Chloride 98 Carbon Dioxide 27 Anion Gap 12 BUN 20 H Creatinine 0.69 Estim Creat Clear Calc 85.6 Estimated GFR > 60 POC Glucose 98 164 H Random Glucose 143 H Osmolality Calcium 7.8 L D Total Bilirubin 0.5 Direct Bilirubin 0.3 AST 71 H ALT 254 H Alkaline Phosphatase 161 H Total Protein 6.3 L Albumin 3.3 L Urine Osmolality U Random Total Protein Ur Random Sodium Urine Creatinine Preliminary micro results at discharge 10/03/20 22:37 Blood Culture - Preliminary Blood - Venous No growth after 48 hours. 10/03/20 22:29 Blood Culture - Preliminary Blood - Venous No growth after 48 hours. Discharge Plan Discharge Patient Disposition: Home, Self-Care Referrals: Physician,Unknown [Primary Care Provider] - Discharge Medications: New benzonatate 100 mg Capsule 100 mg PO TID Qty: 20 RF: 0 azithromycin 500 mg Tablet 500 mg PO Q24H Qty: 2 RF: 0 prednisone 20 mg tablet 20 mg PO DAILY Qty: 7 RF: 0 prednisone 10 mg tablet 10 mg PO DAILY Qty: 7 RF: 0 Continued nystatin 100,000 unit/mL suspension 5 ml PO QID RF: 0 ipratropium-albuterol 0.5 mg-3 mg(2.5 mg base)/3 mL solution for nebulization 1 vial inhalation Q6H PRN (Reason: wheezing) RF: 0 Flovent HFA 220 mcg/actuation HFA aerosol inhaler 2 puff PO BID RF: 0 albuterol sulfate 90 mcg/actuation HFA aerosol inhaler 2 puff inhalation Q6H PRN (Reason: wheezing) RF: 0 sumatriptan succinate 50 mg Tablet 50 mg PO DAILY PRN (Reason: Headache) RF: 0 aspirin 81 mg Tablet,Delayed Release (Dr/Ec) 81 mg PO DAILY RF: 0 insulin lispro [Admelog U-100 Insulin lispro] 100 unit/mL Solution 80 unit SUBCUT DAILY RF: 0 Discontinued lovastatin 40 mg tablet 1 tab PO DAILY RF: 0 No Action (DME) subcutaneous insulin pump Misc MISCELLANEOUS RF: 0 Discharge Orders: Discharge Order (Routine); Ordered 10/07/20 Ordered By: Antonio Catherine Diet: diabetic diet Activity on Discharge: As tolerated Stand Alone Forms: Patient Portal Discharge page Care Plan Goals: As above Health Concerns: Hyponatremia, restrict 4-5 glasses (8oz )of water daily, avoid illicit drug use, follow-up with pulmonology Dr. Lira. Take prednisone 20 mg by mouth daily for 7 days followed by prednisone 10 mg by mouth daily, hold lovastatin due to elevated liver enzyme, resume as per PCP recommendation Plan of Treatment: Outpatient follow-up with primary care physician and Dr. Lira Assessment: As per discharge plan.
[2020-10-08 04:45] LABS: Hepatitis A Antibody IgM 0.16 Index (0-0.79); ~Hepatitis A Antibody IgM Nonreactive (Nonreactive)
[2020-10-08 13:32] LABS: Anti Nuclear Antibody Screen NEGATIVE (NEGATIVE)
[2020-10-11 09:47] LABS: Cryptococcal Ag Source BLOOD
== END 2020-10-07 13:55 | disposition home or self-care (01) | DRG 816 ==
LOC: HO.ED 10-04 01:37 → HO.EDOVER 10-04 05:17 → HO.IMC 10-04 19:28
PROVIDERS: Internal Medicine; Internal Medicine Gastroenterology; Internal Medicine Hypertension Specialist; Nurse Practitioner Family; Physician Assistant; Admitting Provider Hospitalist; Emergency Provider Emergency Medicine Emergency Medical Services; PCP Family Medicine; Visit Provider Hospitalist
DX: T40.1X1A Poisoning by heroin, accidental (unintentional), initial encounter (principal); J96.01 Acute respiratory failure with hypoxia; N17.9 Acute kidney failure, unspecified; J12.9 Viral pneumonia, unspecified; T85.9XXA Unspecified complication of internal prosthetic device, implant and graft, initial encounter; J70.4 Drug-induced interstitial lung disorders, unspecified; F11.10 Opioid abuse, uncomplicated; Y92.9 Unspecified place or not applicable; E86.0 Dehydration; Z20.822 Contact with and (suspected) exposure to COVID-19; K76.1 Chronic passive congestion of liver; E87.1 Hypo-osmolality and hyponatremia; R74.01 Elevation of levels of liver transaminase levels; F17.210 Nicotine dependence, cigarettes, uncomplicated; Z71.6 Tobacco abuse counseling; Z79.4 Long term (current) use of insulin; Z79.82 Long term (current) use of aspirin; Z79.899 Other long term (current) drug therapy
CPT/HCPCS: 0241U; 36415; 70450; 71045; 71046; 71250; 71275; 72125; 74176; 78580; 80048; 80053; 80061; 80076; 80143; 80179; 80307; 81001; 82009; 82140; 82550; 82947; 83605; 83880; 83930; 83935; 84156; 84300; 84484; 85025; 85379; 85610; 85730; 86021; 86038; 86039; 86403; 86704; 86706; 86709; 86803; 87040; 87340; 87389; 87633; 93005; 93306; 93970; 94640; 96365; 96366; 96367; 96368; 96375; 99285; 99291; A9540; J0456; J0696; J1100; J2920; J3475; J8540; Q9967

== ENCOUNTER 2020-10-11 16:39 | Emergency (ER) | payer OTHER, SELFPAY ==
--- NOTE | ~2020-10-11 | XR_ITS ---
EXAMINATION: PORTABLE CHEST 1 VIEW CLINICAL INFORMATION: SOB . COMPARISON: 10/06/2020. TECHNIQUE: Portable frontal view of the chest was obtained. FINDINGS: Lungs are well expanded with persistent patchy bilateral airspace disease. No significant effusion or pneumothorax. Cardiac and mediastinal silhouettes within normal limits for size. No acute bony abnormality. XR/XR chest 1V IMPRESSION: Persistent patchy bilateral airspace disease with a distribution similar to the recent prior study
[2020-10-11 16:52] VITALS: BP 141/82; BP 151/95; PULSE 105; PULSE 112; RESP 20; TEMP 36.6; O2SAT 95; BMI 39.0
--- NOTE | 2020-10-11 17:24 | ED.SOB ---
HPI - SOB/Dyspnea General Chief Complaint: Dyspnea Stated Complaint: sob asthma Time Seen by Provider: 10/11/20 17:23 Source: patient Mode of arrival: ambulatory Limitations: no limitations History of Present Illness HPI Narrative: 45-year-old female with past medical history of asthma, diabetes on insulin pump, history of IV heroin abuse, came in today for shortness of breath and difficulty breathing, and gaining weight by swelling of lower extremities, and drainage of fluid from her stomach due to swelling. Related Data Home Medications Medication Instructions Recorded Confirmed Flovent HFA 2 puff PO BID 10/04/20 10/11/20 albuterol sulfate 2 puff INHALATION Q6H PRN 10/04/20 10/11/20 aspirin 81 mg PO DAILY 10/04/20 10/11/20 insulin lispro [Admelog U-100 80 unit SUBCUT DAILY 10/04/20 10/11/20 Insulin lispro] ipratropium-albuterol 1 vial INHALATION Q6H PRN 10/04/20 10/11/20 nystatin 5 ml PO QID 10/04/20 10/11/20 subcutaneous insulin pump 10/04/20 10/04/20 sumatriptan succinate 50 mg PO DAILY PRN 10/04/20 10/11/20 Previous Rx's Medication Instructions Recorded azithromycin 500 mg PO Q24H #2 tab 10/07/20 benzonatate 100 mg PO TID #20 cap 10/07/20 prednisone 10 mg PO DAILY #7 tab 10/07/20 prednisone 20 mg PO DAILY #7 tab 10/07/20 Allergies Allergy/AdvReac Type Severity Reaction Status Date / Time ibuprofen [IBUPROFEN] Allergy Unknown LIGHTHEADED;FEELS Verified 06/14/20 18:57 LIKE CHEST IS CLOSING IN;CLAUSTROPHOBIC Review of Systems Review of Systems: All other systems are reviewed and are negative Constitutional: Reports as per HPI and Reports no additional constitutional complaints Eyes: Reports as per HPI and Reports no additional eye complaints Reports system reviewed and no additional complaints, except as documented Cardiovascular: Reports as per HPI and Reports no additional cardiovascular complaints Respiratory: Reports as per HPI and Reports no additional respiratory complaints Gastrointestinal: Reports as per HPI and Reports no additional gastrointestinal complaints Genitourinary: Reports no additional female genitourinary complaints Musculoskeletal: Reports no additional musculoskeletal complaints Skin/Breast: Reports system reviewed and no additional complaints, except as docu Psychiatric: Reports no additional psychiatric complaints Endocrine: Reports no additional endocrine complaints Hematologic/Lymphatic: Reports no additional hematologic/lymphatic complaints Allergic/Immunologic: Reports no additional allergic/immunologic complaints Reports system reviewed and no additional complaints, except as documented and Reports Abnormal speech present [facility] Past Medical History Medical History Asthma Diabetes Diabetic acetonemia Drug abuse in remission Pneumonia Pneumonia Post-tubal ligation syndrome Social History Social History Household Members: Spouse Housing: House Smoking Status: Current every day smoker Tobacco Type: Cigarette Packs Per Day: 1.5 Cigarettes Per Day: 30.0 Years Smoked: 32 Substance Use Type: Heroin Advance Directives: No Advance Directives Information Provided: No service: No Current occupational status: unemployed Physical Exam Vital Signs: Vital Signs: Last Vital Signs Temp 97.3 F 10/11/20 20:00 Pulse 98 10/11/20 20:00 Resp 20 10/11/20 20:00 BP 127/82 10/11/20 19:18 Pulse Ox 94 10/11/20 20:00 Body Mass Index 39.0 Vital signs have been reviewed as appeared to be correct. Blood pressure normal. Heart rate normal. Respiration rate normal. Temperature normal. Oxygen saturation normal. Appearance: Alert. Oriented X3. No acute distress. Head: Normal external exam. Normocephalic. Atraumatic. No Eric signs noted. No raccoon eyes noted Eyes: PERRLA. EOMI. Conjunctiva and sclera normal. Eyelids normal. ENT: TM's Normal. Pharynx normal. Uvula midline. Moist mucous membranes. No trismus noted. No drooling noted. No muffled voice noted. Neck: Normal inspection. Neck supple. FROM. No adenopathy. Thyroid Normal. No meningeal signs. No neck mass noted. CVS: Normal heart rate and rhythm. Heart sound normal. No murmurs noted. Pulses normal throughout. Respiratory: No respiratory distress. Painless inspiration. Breath sounds normal. No wheezes/rales/rhonchi noted. Chest nontender. No accessory muscle usage noted or decreased air movement noted. Abdomen: Soft and nontender. Bowel sounds normal in all 4 quadrants. No distention noted. No organomegaly noted. No visible injury noted. Back: No CVA tenderness. Full range of motion noted. Skin: Skin warm and dry. Normal skin color. Normal skin turgor. No rashes/lesions/lacerations noted. Extremities: No lower extremity edema. Extremities exhibit normal range of motion. Extremities nontender. Neuro: Oriented X 3. No motor deficit. No sensory deficit. Reflexes normal. Course Course Course Narrative: Assessment and plan. [age] year old female came in with bilateral lower extremity swelling, shortness of breath. Chest x-ray is showing no change from previous chest x-ray. Leukocytosis etiology is not clear. Will cover the patient with empirical Z-Sanjay for the finding x-ray, will discharge the patient to follow-up with attraction attendant as an outpatient. Will start the patient on low-dose of Lasix and follow-up with PCP. MDM - SOB/Dyspnea Lab Data Attestation: I reviewed the patient's lab results. Result diagrams: 10/11/20 18:39 10/11/20 18:39 Labs: Lab Results 10/11/20 10/11/20 10/11/20 Range/Units 18:39 18:39 18:39 WBC 22.7 H (4.8-10.8) X10*3/uL RBC 4.25 (4.20-5.50) X10*6/uL Hgb 11.9 L (12.0-16.0) g/dl Hct 37.5 (37-47) % MCV 88.2 (80-98) fL MCH 28.0 (27.0-33.0) pg MCHC 31.7 (31.0-35.0) g/dl RDW 19.3 H (11.0-16.0) % Plt Count 268 D (160-400) X10*3/uL MPV 9.2 L (9.4-12.3) fL Immature Gran % (Auto) 1.0 H (0.0-0.4) % Neut % (Auto) 75.3 H (45-73) % Lymph % (Auto) 19.8 L (20-40) % Logan % (Auto) 3.3 (2-11) % Eos % (Auto) 0.5 (0-4) % Baso % (Auto) 0.1 (0-2) % Lymph # (Auto) 4.5 (1.2-4.9) X10*3/uL Logan # (Auto) 0.8 (0.1-1.2) X10*3/uL Eos # (Auto) 0.1 (0.0-0.4) X10*3/uL Baso # (Auto) 0.0 (0.0-0.2) X10*3/uL Abs Immat Gran (auto) 0.22 H (0.00-0.03) X10*3/uL Absolute Neuts (auto) 17.1 H (2.0-8.3) X10*3/uL Absolute Nucleated RBC 0.000 (0.0-0.012) X10*3/uL Nucleated RBC % (auto) 0.0 (0.0-0.2) /100WBC Smear Tech's Comments VERIFIED Sodium 136 (135-145) mmol/L Potassium 4.7 (3.3-5.1) mmol/L Chloride 95 L (96-108) mmol/L Carbon Dioxide 35 H (22-29) mmol/L Anion Gap 11 L (12-20) BUN 8 L D (9-16) mg/dL Creatinine 0.59 (0.5-1.4) mg/dL Estim Creat Clear Calc 120.9 Estimated GFR > 60 Random Glucose 96 (60-115) mg/dL Calcium 8.0 L (8.4-10.2) mg/dL Total Bilirubin 0.4 (0.0-1.0) mg/dL Direct Bilirubin 0.2 (0.0-0.5) mg/dL AST 34 H D (5-31) U/L ALT 72 H (0-31) U/L Alkaline Phosphatase 131 H (39-117) U/L Troponin I High Sens 13.5 D (<3.5-17.0) ng/L B-Natriuretic Peptide 134 H (<100) pg/mL Total Protein 5.8 L (6.5-8.0) g/dL Albumin 3.0 L (3.5-5.0) g/dL Lipase < 4 L (8-78) U/L Urine Color Urine Appearance Urine pH (5.0-8.0) Ur Specific [place] (1.005-1.025) Urine Protein (NEG-TRACE) MG/DL Urine Glucose (UA) (NEG) MG/DL Urine Ketones (NEG) MG/DL Urine Blood (NEG) Urine Nitrite (NEG) Ur Leukocyte Esterase (NEG) COVID-19 (NUBIA) (Negative) COVID-19 Clin Com 10/11/20 10/11/20 Range/Units 18:39 19:08 WBC (4.8-10.8) X10*3/uL RBC (4.20-5.50) X10*6/uL Hgb (12.0-16.0) g/dl Hct (37-47) % MCV (80-98) fL MCH (27.0-33.0) pg MCHC (31.0-35.0) g/dl RDW (11.0-16.0) % Plt Count (160-400) X10*3/uL MPV (9.4-12.3) fL Immature Gran % (Auto) (0.0-0.4) % Neut % (Auto) (45-73) % Lymph % (Auto) (20-40) % Logan % (Auto) (2-11) % Eos % (Auto) (0-4) % Baso % (Auto) (0-2) % Lymph # (Auto) (1.2-4.9) X10*3/uL Logan # (Auto) (0.1-1.2) X10*3/uL Eos # (Auto) (0.0-0.4) X10*3/uL Baso # (Auto) (0.0-0.2) X10*3/uL Abs Immat Gran (auto) (0.00-0.03) X10*3/uL Absolute Neuts (auto) (2.0-8.3) X10*3/uL Absolute Nucleated RBC (0.0-0.012) X10*3/uL Nucleated RBC % (auto) (0.0-0.2) /100WBC Smear Tech's Comments Sodium (135-145) mmol/L Potassium (3.3-5.1) mmol/L Chloride (96-108) mmol/L Carbon Dioxide (22-29) mmol/L Anion Gap (12-20) BUN (9-16) mg/dL Creatinine (0.5-1.4) mg/dL Estim Creat Clear Calc Estimated GFR Random Glucose (60-115) mg/dL Calcium (8.4-10.2) mg/dL Total Bilirubin (0.0-1.0) mg/dL Direct Bilirubin (0.0-0.5) mg/dL AST (5-31) U/L ALT (0-31) U/L Alkaline Phosphatase (39-117) U/L Troponin I High Sens (<3.5-17.0) ng/L B-Natriuretic Peptide (<100) pg/mL Total Protein (6.5-8.0) g/dL Albumin (3.5-5.0) g/dL Lipase (8-78) U/L Urine Color YELLOW Urine Appearance CLEAR Urine pH 5.5 (5.0-8.0) Ur Specific [place] <= 1.005 (1.005-1.025) Urine Protein NEG (NEG-TRACE) MG/DL Urine Glucose (UA) NEG (NEG) MG/DL Urine Ketones NEG (NEG) MG/DL Urine Blood NEG (NEG) Urine Nitrite NEG (NEG) Ur Leukocyte Esterase NEG (NEG) COVID-19 (NUBIA) Negative (Negative) COVID-19 Clin Com See Note Imaging Data Chest x-ray: Radiologist's impression: Persistent patchy bilateral airspace disease with a distribution similar to the recent prior study Discharge Plan Discharge Prescriptions: No Action nystatin 100,000 unit/mL suspension 5 ml PO QID RF: 0 ipratropium-albuterol 0.5 mg-3 mg(2.5 mg base)/3 mL solution for nebulization 1 vial inhalation Q6H PRN (Reason: wheezing) RF: 0 Flovent HFA 220 mcg/actuation HFA aerosol inhaler 2 puff PO BID RF: 0 albuterol sulfate 90 mcg/actuation HFA aerosol inhaler 2 puff inhalation Q6H PRN (Reason: wheezing) RF: 0 sumatriptan succinate 50 mg Tablet 50 mg PO DAILY PRN (Reason: Headache) RF: 0 aspirin 81 mg Tablet,Delayed Release (Dr/Ec) 81 mg PO DAILY RF: 0 insulin lispro [Admelog U-100 Insulin lispro] 100 unit/mL Solution 80 unit SUBCUT DAILY RF: 0 (DME) subcutaneous insulin pump Misc MISCELLANEOUS RF: 0 benzonatate 100 mg Capsule 100 mg PO TID Qty: 20 RF: 0 azithromycin 500 mg Tablet 500 mg PO Q24H Qty: 2 RF: 0 prednisone 20 mg tablet 20 mg PO DAILY Qty: 7 RF: 0 prednisone 10 mg tablet 10 mg PO DAILY Qty: 7 RF: 0
--- NOTE | 2020-10-11 17:29 | ECG_ITS ---
Test Reason : SOB Blood Pressure : / mmHG Vent. Rate : 095 BPM Atrial Rate : 095 BPM P-R Int : 130 ms QRS Dur : 076 ms QT Int : 310 ms P-R-T Axes : 049 017 032 degrees QTc Int : 389 ms Normal sinus rhythm Normal ECG When compared with ECG of 03-OCT-2020 23:53, No significant changes seen Referred By: Travis Hudson Electronically Signed By:JAGUAR MATA
[2020-10-11 18:49] LABS: Basophils Percent Auto 0.1 % (0-2); Eosinophils Absolute Auto 0.1 X10*3/uL (0.0-0.4); Eosinophils Percent Auto 0.5 % (0-4); Hematocrit 37.5 % (37-47); Hemoglobin 11.9 g/dl (12.0-16.0); Imm Gran Abs Auto 0.22 X10*3/uL (0.00-0.03); Lymphocytes Absolute Auto 4.5 X10*3/uL (1.2-4.9); Lymphocytes Percent Auto 19.8 % (20-40); MANUAL DIFF FLAG SCAN; Mean Corpuscular HGB Conc 31.7 g/dl (31.0-35.0); Mean Corpuscular Volume 88.2 fL (80-98); Mean Platelet Volume 9.2 fL (9.4-12.3); Monocytes Absolute Auto 0.8 X10*3/uL (0.1-1.2); Monocytes Percent Auto 3.3 % (2-11); Neutrophils Absolute Auto 17.1 X10*3/uL (2.0-8.3); Neutrophils Percent Auto 75.3 % (45-73); Platelet Count 268 X10*3/uL (160-400); Red Blood Count 4.25 X10*6/uL (4.20-5.50); Red Cell Distribution Width 19.3 % (11.0-16.0); SCAN SMEAR FLAG 1; White Blood Count 22.7 X10*3/uL (4.8-10.8)
[2020-10-11 19:04] LABS: COVID-19 Test Negative (Negative)
[2020-10-11 19:13] LABS: SLIDE REVIEW VERIFIED
[2020-10-11 19:15] LABS: Alanine Aminotransferase 72 U/L (0-31); Alkaline Phosphatase 131 U/L (39-117); Anion Gap 11 (12-20); Aspartate Amino Transferase 34 U/L (5-31); Bilirubin Direct 0.2 mg/dL (0.0-0.5); Bilirubin Total 0.4 mg/dL (0.0-1.0); Blood Urea Nitrogen 8 mg/dL (9-16); Carbon Dioxide 35 mmol/L (22-29); Chloride 95 mmol/L (96-108); Creatinine Clr Calc Pharmacy 120.9; Estimated Glomerular Filt Rate > 60; Glucose Random 96 mg/dL (60-115); Lipase < 4 U/L (8-78); Potassium 4.7 mmol/L (3.3-5.1); Sodium 136 mmol/L (135-145); Total Protein 5.8 g/dL (6.5-8.0)
[2020-10-11 19:18] VITALS: BP 127/82; PULSE 99; RESP 18; TEMP 36.4; O2SAT 94
[2020-10-11 19:18] LABS: Appearance Urine CLEAR; Color Urine YELLOW; Glucose Urine UA NEG (NEG); Leukocyte Esterase Urine NEG (NEG); Nitrite Urine NEG (NEG); PH 5.5 (5.0-8.0); Specific Gravity - Urine <= 1.005 (1.005-1.025); Urine Blood NEG (NEG); Urine Ketones NEG (NEG); Urine Protein NEG (NEG-TRACE)
[2020-10-11 19:19] LABS: B Type Natriuretic Peptide 134 pg/mL (<100); Troponin-I High Sensitivity 13.5 ng/L (<3.5-17.0)
--- NOTE | 2020-10-11 19:24 | PC.NURSE ---
Nurse to nurse received from JEREMY Chun. Pt awake and alert, breathing equal and unlabored. Denies pain at this time. Tolerating ice chips. Will continue to monitor.
[2020-10-11 20:00] VITALS: PULSE 98; RESP 20; TEMP 36.3; O2SAT 94
[2020-10-11 21:27] VITALS: RESP 16; O2SAT 92
== END 2020-10-11 21:27 | disposition home or self-care (01) ==
PROVIDERS: Emergency Provider Emergency Medicine; PCP Family Medicine
DX: R06.00 Dyspnea, unspecified (principal); Z20.822 Contact with and (suspected) exposure to COVID-19; R60.0 Localized edema; E11.9 Type 2 diabetes mellitus without complications; F17.210 Nicotine dependence, cigarettes, uncomplicated; F11.11 Opioid abuse, in remission; Z79.82 Long term (current) use of aspirin; Z79.899 Other long term (current) drug therapy; Z79.4 Long term (current) use of insulin; Z96.41 Presence of insulin pump (external) (internal)
CPT/HCPCS: 36415; 71045; 80048; 80076; 81003; 83690; 83880; 84484; 85025; 87635; 93005; 99283; 99284

== ENCOUNTER 2020-12-14 23:19 | Emergency (ER) | payer OTHER, SELFPAY ==
[2020-12-14 23:29] VITALS: BP 136/61; PULSE 74; RESP 18; TEMP 36.8; O2SAT 97; BMI 33.7
--- NOTE | 2020-12-14 23:38 | ED_ITS ---
HPI - General Adult General Chief complaint: Nausea/Vomiting/Diarrhea Stated complaint: hyperglycemia Time Seen by Provider: 12/14/20 23:38 Source: patient Mode of arrival: ambulatory Limitations: no limitations History of Present Illness HPI narrative: Patient diabetic type 1 on insulin pump noticed increased blood sugar over 600 for last 3 days patient does drink alcohol but denies any significant drink lately today patient has been vomiting all day did not take any boluses although blood sugar was 410 no change in the basal rate for last 1 year no fever no chills Related Data Home Medications Medication Instructions Recorded Confirmed Flovent HFA 2 puff PO BID 10/04/20 10/11/20 albuterol sulfate 2 puff INHALATION Q6H PRN 10/04/20 10/11/20 aspirin 81 mg PO DAILY 10/04/20 10/11/20 insulin lispro [Admelog U-100 80 unit SUBCUT DAILY 10/04/20 10/11/20 Insulin lispro] ipratropium-albuterol 1 vial INHALATION Q6H PRN 10/04/20 10/11/20 nystatin 5 ml PO QID 10/04/20 10/11/20 subcutaneous insulin pump 10/04/20 10/04/20 sumatriptan succinate 50 mg PO DAILY PRN 10/04/20 10/11/20 Previous Rx's Medication Instructions Recorded azithromycin 500 mg PO Q24H #2 tab 10/07/20 benzonatate 100 mg PO TID #20 cap 10/07/20 prednisone 10 mg PO DAILY #7 tab 10/07/20 prednisone 20 mg PO DAILY #7 tab 10/07/20 azithromycin [Zithromax Z-Sanjay] 250 mg PO DAILY 5 Days #5 tab 10/11/20 furosemide [Lasix] 20 mg PO DAILY #20 tab 10/11/20 lorazepam [Ativan] 1 mg PO BID PRN #14 tab 12/15/20 ondansetron 4 mg PO Q6-8H PRN #7 tab 12/15/20 Allergies Allergy/AdvReac Type Severity Reaction Status Date / Time ibuprofen [IBUPROFEN] Allergy Unknown LIGHTHEADED;FEELS Verified 12/14/20 23:29 LIKE CHEST IS CLOSING IN;CLAUSTROPHOBIC Review of Systems Review of Systems: Constitutional : No Weight loss, No Fever, No Chills ENT/Mouth : No sore throat, No Rhinorrhea Eyes: No Eye Pain, No Swelling Cardiovascular : No Chest Pain, no palpitations Respiratory : No Cough, No Sputum, no shortness of breath Gastrointestinal : no Nausea, No Vomiting, No Diarrhea, No abdominal Pain, no black stools Genitourinary : No Dysuria, No Urinary Frequency Musculoskeletal : No joint pain, No Myalgias, No Joint Swelling Skin : No Skin Lesions, No rash Neuro : No Weakness, No Numbness, No Dizziness, No Headache Psych : No Anxiety/Panic, No Depression Heme/Lymph: No Bruising, No Lymphadenopathy Endocrine : No Polyuria, No Polydipsia All other systems reviewed and are negative [facility] Past Medical History Medical History Asthma Diabetes Diabetic acetonemia Drug abuse in remission Pneumonia Pneumonia Post-tubal ligation syndrome Social History Social History Household Members: Spouse Housing: House Do you presently have visiting nurse or other home services: Yes (community worker through [facility] [place][NOTE 3]) Cigarette Packs Per Day: 1.5 Cigarettes Per Day: 30.0 Years Smoked: 32 Substance Use Type: Heroin Advance Directives: No Advance Directives Information Provided: No Patient : No (SEPTEMBER 2020 BUT REPORTS TUBAL) service: No Current occupational status: unemployed Physical Exam Vital Signs: Vital Signs: Last Vital Signs Temp 98.2 F 12/14/20 23:29 Pulse 97 12/15/20 01:57 Resp 18 12/15/20 01:57 BP 158/82 H 12/15/20 01:57 Pulse Ox 99 12/15/20 01:57 Body Mass Index 33.7 Appearance: Alert. Oriented X3. No acute distress. Anxious Eyes: PERRLA, No Nystagmus ENT: Pharynx normal. Oral Mucosa moist Neck: Normal inspection. Neck supple. CVS: Normal heart rate and rhythm. Pulses normal. Respiratory: No respiratory distress. Equal air entry bilateral, no wheezing/rales/rhonchi Abdomen: Soft and nontender. Bowel sounds are present, no mass palpable, no CVA tenderness Skin: Skin warm and dry. Normal skin color. Normal skin turgor. Extremities: No lower extremity edema. No calf tenderness Neuro: Oriented X 3. No motor deficit. No sensory deficit.No cerebellar signs , cranial nerves II-XII intact Medical Decision Making MDM Narrative Medical decision making narrative: Patient diabetic type 1 on insulin pump care for high blood sugar and vomiting , patient using heroin responded to 2 L of normal saline IV fluids no ketoacidosis patient taking p.o. fluids will discharge patient home Lab Data Lab results reviewed: Yes I reviewed the patient's lab results. Result diagrams: 12/15/20 00:04 12/15/20 00:04 Labs: Lab Results 12/14/20 12/15/20 12/15/20 Range/Units 23:46 00:04 00:04 WBC 10.4 (4.8-10.8) X10*3/uL RBC 5.35 D (4.20-5.50) X10*6/uL Hgb 14.1 (12.0-16.0) g/dl Hct 42.3 (37-47) % MCV 79.1 L (80-98) fL MCH 26.4 L (27.0-33.0) pg MCHC 33.3 (31.0-35.0) g/dl RDW 19.9 H (11.0-16.0) % Plt Count 221 (160-400) X10*3/uL MPV 10.6 (9.4-12.3) fL Immature Gran % (Auto) 0.3 (0.0-0.4) % Neut % (Auto) 88.1 H (45-73) % Lymph % (Auto) 9.8 L (20-40) % [place] % (Auto) 1.7 L (2-11) % Eos % (Auto) 0.0 (0-4) % Baso % (Auto) 0.1 (0-2) % Lymph # (Auto) 1.0 L (1.2-4.9) X10*3/uL [place] # (Auto) 0.2 (0.1-1.2) X10*3/uL Eos # (Auto) 0.0 (0.0-0.4) X10*3/uL Baso # (Auto) 0.0 (0.0-0.2) X10*3/uL Abs Immat Gran (auto) 0.03 (0.00-0.03) X10*3/uL Absolute Neuts (auto) 9.2 H (2.0-8.3) X10*3/uL Absolute Nucleated RBC 0.000 (0.0-0.012) X10*3/uL Nucleated RBC % (auto) 0.0 (0.0-0.2) /100WBC Sodium 133 L (135-145) mmol/L Potassium 3.9 (3.3-5.1) mmol/L Chloride 96 (96-108) mmol/L Carbon Dioxide 23 (22-29) mmol/L Anion Gap 18 (12-20) BUN 13 D (9-16) mg/dL Creatinine 0.87 (0.5-1.4) mg/dL Estim Creat Clear Calc 72.5 Estimated GFR > 60 POC Glucose 444 H* (60-115) mg/dL Random Glucose 451 H* (60-115) mg/dL Calcium 9.3 D (8.4-10.2) mg/dL Magnesium 1.9 (1.6-2.6) mg/dL Total Bilirubin 0.8 (0.0-1.0) mg/dL Direct Bilirubin 0.4 (0.0-0.5) mg/dL AST 71 H (5-31) U/L ALT 52 H (0-31) U/L Alkaline Phosphatase 128 H (39-117) U/L Total Protein 8.1 H D (6.5-8.0) g/dL Albumin 4.1 D (3.5-5.0) g/dL Lipase < 4 L (8-78) U/L Acetone, Qual Small H (Negative) Discharge Plan Discharge Clinical Impression: Hyperglycemia due to type 1 diabetes mellitus, Heroin abuse Vomiting Qualifiers: Vomiting type: unspecified Vomiting Intractability: non-intractable Nausea presence: with nausea Qualified Code(s): R11.2 - Nausea with vomiting, unspecified Patient Disposition: Home, Self-Care Instructions: Diabetic Hyperglycemia (ED), Opioid Use Disorder (ED) Additional Instructions: Drink plenty of fluids Take Your insulin as advised Ativan for severe anxiety Stop using heroin Prescriptions: New ondansetron 4 mg tablet,disintegrating 4 mg PO Q6-8H PRN (Reason: nausea and vomiting) Qty: 7 RF: 0 lorazepam [Ativan] 1 mg tablet 1 mg PO BID PRN (Reason: anxiety) Qty: 14 RF: 0 No Action nystatin 100,000 unit/mL suspension 5 ml PO QID RF: 0 ipratropium-albuterol 0.5 mg-3 mg(2.5 mg base)/3 mL solution for nebulization 1 vial inhalation Q6H PRN (Reason: wheezing) RF: 0 Flovent HFA 220 mcg/actuation HFA aerosol inhaler 2 puff PO BID RF: 0 albuterol sulfate 90 mcg/actuation HFA aerosol inhaler 2 puff inhalation Q6H PRN (Reason: wheezing) RF: 0 sumatriptan succinate 50 mg Tablet 50 mg PO DAILY PRN (Reason: Headache) RF: 0 aspirin 81 mg Tablet,Delayed Release (Dr/Ec) 81 mg PO DAILY RF: 0 insulin lispro [Admelog U-100 Insulin lispro] 100 unit/mL Solution 80 unit SUBCUT DAILY RF: 0 (DME) subcutaneous insulin pump Misc MISCELLANEOUS RF: 0 benzonatate 100 mg Capsule 100 mg PO TID Qty: 20 RF: 0 azithromycin 500 mg Tablet 500 mg PO Q24H Qty: 2 RF: 0 prednisone 20 mg tablet 20 mg PO DAILY Qty: 7 RF: 0 prednisone 10 mg tablet 10 mg PO DAILY Qty: 7 RF: 0 azithromycin [Zithromax Z-Sanjay] 250 mg tablet 250 mg PO DAILY 5 Days Qty: 5 RF: 0 furosemide [Lasix] 20 mg tablet 20 mg PO DAILY Qty: 20 RF: 0
[2020-12-14] MEDS: ondansetron HCL 4 MG/2 ML VIAL IVPUSH (23:51)
[2020-12-14] MEDS: 0.9 % Sodium Chloride 1,000 ML 999 ML IVCONT (23:51)
[2020-12-14 23:53] LABS: Glucose, Whole Blood 444 mg/dL (60-115)
[2020-12-15 00:10] LABS: MANUAL DIFF FLAG NO
[2020-12-15 00:17] LABS: Basophils Percent Auto 0.1 % (0-2); Hematocrit 42.3 % (37-47); Hemoglobin 14.1 g/dl (12.0-16.0); Imm Gran Abs Auto 0.03 X10*3/uL (0.00-0.03); Imm Gran Pct Auto 0.3 % (0.0-0.4); Lymphocytes Percent Auto 9.8 % (20-40); Mean Corpuscular HGB Conc 33.3 g/dl (31.0-35.0); Mean Corpuscular Hemoglobin 26.4 pg (27.0-33.0); Mean Corpuscular Volume 79.1 fL (80-98); Mean Platelet Volume 10.6 fL (9.4-12.3); Monocytes Absolute Auto 0.2 X10*3/uL (0.1-1.2); Monocytes Percent Auto 1.7 % (2-11); Neutrophils Absolute Auto 9.2 X10*3/uL (2.0-8.3); Neutrophils Percent Auto 88.1 % (45-73); Platelet Count 221 X10*3/uL (160-400); Red Blood Count 5.35 X10*6/uL (4.20-5.50); Red Cell Distribution Width 19.9 % (11.0-16.0); White Blood Count 10.4 X10*3/uL (4.8-10.8)
[2020-12-15] MEDS: LORazepam 2 MG/ML VIAL 1 MG IVPUSH (00:19)
--- NOTE | 2020-12-15 00:23 | PC.NURSE ---
PT MEDICATED PER MD ORDER FOR CONTINUED NAUSEA AND VOMITING S/P IVP ZOFRAN X2 (BY EMS HEEL TURNER AND IN THE ED BY THIS RN). PT WITH CONTINUED ABDOMINAL DISCOMFORT. VSS AND CALL GEORGE IN REACH, THIS RN WILL CONTINUE TO MONITOR.
[2020-12-15 00:31] LABS: Acetone, serum QL Small (Negative)
[2020-12-15 00:47] LABS: Alanine Aminotransferase 52 U/L (0-31); Albumin Level 4.1 g/dL (3.5-5.0); Alkaline Phosphatase 128 U/L (39-117); Anion Gap 18 (12-20); Aspartate Amino Transferase 71 U/L (5-31); Bilirubin Direct 0.4 mg/dL (0.0-0.5); Bilirubin Total 0.8 mg/dL (0.0-1.0); Blood Urea Nitrogen 13 mg/dL (9-16); Calcium 9.3 mg/dL (8.4-10.2); Carbon Dioxide 23 mmol/L (22-29); Chloride 96 mmol/L (96-108); Creatinine Clr Calc Pharmacy 72.5; Estimated Glomerular Filt Rate > 60; Glucose Random 451 mg/dL (60-115); Lipase < 4 U/L (8-78); Magnesium 1.9 mg/dL (1.6-2.6); Potassium 3.9 mmol/L (3.3-5.1); Sodium 133 mmol/L (135-145); Total Protein 8.1 g/dL (6.5-8.0)
[2020-12-15 01:57] VITALS: BP 158/82; PULSE 97; RESP 18; O2SAT 99
--- NOTE | 2020-12-15 02:00 | PC.NURSE ---
pt awake after sleeping s/p ativan ivp. pt with recheck of POC md jemma Masters to bedside. pt offered help with drug use as she confirms snorting however pt declined. pt given diet gingerale for PO challenge as she reports continued nausea. Pt aware of plan for insulin admin and dc home.
[2020-12-15 02:03] LABS: Glucose, Whole Blood 386 mg/dL (60-115)
[2020-12-15] MEDS: Insulin Lispro 100 UNIT/ML 3 ML VIAL 10 UNIT SUBCUT (02:17)
[2020-12-15] MEDS: Prochlorperazine Edisylate 10 MG/2 ML VIAL IVPUSH (02:17)
[2020-12-15] MEDS: 0.9 % Sodium Chloride 1,000 ML 999 ML IVCONT (02:18)
[2020-12-15 03:57] VITALS: BP 160/75; PULSE 93; RESP 20; O2SAT 97
[2020-12-15 03:57] LABS: Glucose, Whole Blood 312 mg/dL (60-115)
[2020-12-15] MEDS: Insulin Regular, Human 100 UNIT/ML 3 ML VIAL IVPUSH (04:23)
[2020-12-15 04:53] LABS: Glucose, Whole Blood 243 mg/dL (60-115)
[2020-12-15 05:03] VITALS: BP 151/68; PULSE 100; RESP 20; O2SAT 96
[2020-12-15 06:20] LABS: Glucose, Whole Blood 263 mg/dL (60-115)
== END 2020-12-15 06:40 | disposition home or self-care (01) ==
PROVIDERS: Emergency Provider Internal Medicine; PCP Family Medicine
DX: E10.65 Type 1 diabetes mellitus with hyperglycemia (principal); F11.10 Opioid abuse, uncomplicated; Z96.41 Presence of insulin pump (external) (internal)
CPT/HCPCS: 36415; 80048; 80076; 82009; 82947; 83690; 83735; 85025; 96361; 96374; 96375; 99284; J2060; J2405

== ENCOUNTER 2021-01-04 18:51 | Emergency (ER) | payer OTHER, SELFPAY ==
--- NOTE | 2021-01-04 19:05 | ED.AMS ---
HPI - Altered Mental Status General Chief Complaint: General Medical Stated Complaint: overdose Time Seen by Provider: 01/04/21 19:03 Source: patient and EMS Mode of arrival: EMS Limitations: no limitations History of Present Illness HPI narrative: 45-year-old female came in by ambulance after found unresponsive by her family. patient with history of type 1 diabetes controlled with insulin via insulin Pump patient was found to have blood sugar of 20, patient was given sugar at home by family, on EMS arrival blood sugar was 120 patient had pinpoint pupil patient was given Narcan by EMS and she started to wake up. In the emergency department patient had blood sugar of 60, patient declined using any street drugs, patient admitted to taking her normal daily 35 mg methadone. Patient otherwise declined any other symptoms no chest pain, no abdominal pain, no headache. Related Data Home Medications Medication Instructions Recorded Confirmed Flovent HFA 2 puff PO BID 10/04/20 10/11/20 albuterol sulfate 2 puff INHALATION Q6H PRN 10/04/20 10/11/20 aspirin 81 mg PO DAILY 10/04/20 10/11/20 insulin lispro [Admelog U-100 80 unit SUBCUT DAILY 10/04/20 10/11/20 Insulin lispro] ipratropium-albuterol 1 vial INHALATION Q6H PRN 10/04/20 10/11/20 nystatin 5 ml PO QID 10/04/20 10/11/20 subcutaneous insulin pump 10/04/20 10/04/20 sumatriptan succinate 50 mg PO DAILY PRN 10/04/20 10/11/20 Previous Rx's Medication Instructions Recorded azithromycin 500 mg PO Q24H #2 tab 10/07/20 benzonatate 100 mg PO TID #20 cap 10/07/20 prednisone 10 mg PO DAILY #7 tab 10/07/20 prednisone 20 mg PO DAILY #7 tab 10/07/20 azithromycin [Zithromax Z-Sanjay] 250 mg PO DAILY 5 Days #5 tab 10/11/20 furosemide [Lasix] 20 mg PO DAILY #20 tab 10/11/20 lorazepam [Ativan] 1 mg PO BID PRN #14 tab 12/15/20 ondansetron 4 mg PO Q6-8H PRN #7 tab 12/15/20 cefuroxime axetil 500 mg PO BID #14 tab 01/04/21 Allergies Allergy/AdvReac Type Severity Reaction Status Date / Time ibuprofen [IBUPROFEN] Allergy Unknown LIGHTHEADED;FEELS Verified 12/14/20 23:29 LIKE CHEST IS CLOSING IN;CLAUSTROPHOBIC Review of Systems Review of Systems: All other systems are reviewed and are negative Constitutional: Reports as per HPI and Reports no additional constitutional complaints Eyes: Reports as per HPI and Reports no additional eye complaints Reports system reviewed and no additional complaints, except as documented Cardiovascular: Reports as per HPI and Reports no additional cardiovascular complaints Respiratory: Reports as per HPI and Reports no additional respiratory complaints Gastrointestinal: Reports as per HPI and Reports no additional gastrointestinal complaints Genitourinary: Reports no additional female genitourinary complaints Musculoskeletal: Reports no additional musculoskeletal complaints Skin/Breast: Reports system reviewed and no additional complaints, except as docu Psychiatric: Reports no additional psychiatric complaints Endocrine: Reports no additional endocrine complaints Hematologic/Lymphatic: Reports no additional hematologic/lymphatic complaints Allergic/Immunologic: Reports no additional allergic/immunologic complaints Reports system reviewed and no additional complaints, except as documented and Reports Abnormal speech present [facility] Past Medical History Medical History Asthma Diabetes Diabetic acetonemia Drug abuse in remission Pneumonia Pneumonia Post-tubal ligation syndrome Social History Social History Household Members: Spouse Housing: House Do you presently have visiting nurse or other home services: Yes (bindery worker through [facility]) Cigarette Packs Per Day: 1.5 Cigarettes Per Day: 30.0 Years Smoked: 32 Substance Use Type: Heroin Advance Directives: No Advance Directives Information Provided: Yes Patient : No service: No Current occupational status: unemployed Physical Exam Vital Signs: Vital Signs: Last Vital Signs Temp 97.8 F 01/04/21 19:34 Pulse 78 01/04/21 19:34 Resp 16 01/04/21 19:34 BP 157/67 H 01/04/21 19:34 Pulse Ox 98 01/04/21 19:34 Body Mass Index 32.3 vital signs have been reviewed as appeared to be correct. Blood pressure normal. Heart rate normal. Respiration rate normal. Temperature normal. Oxygen saturation normal. Appearance: Alert. Oriented X3. No acute distress. Head: Normal external exam. Normocephalic. Atraumatic. No Eric signs noted. No raccoon eyes noted Eyes: PERRLA. EOMI. Conjunctiva and sclera normal. Eyelids normal. ENT: TM's Normal. Pharynx normal. Uvula midline. Moist mucous membranes. No trismus noted. No drooling noted. No muffled voice noted. Neck: Normal inspection. Neck supple. FROM. No adenopathy. Thyroid Normal. No meningeal signs. No neck mass noted. CVS: Normal heart rate and rhythm. Heart sound normal. No murmurs noted. Pulses normal throughout. Respiratory: No respiratory distress. Painless inspiration. Breath sounds normal. No wheezes/rales/rhonchi noted. Chest nontender. No accessory muscle usage noted or decreased air movement noted. Abdomen: Soft and nontender. Bowel sounds normal in all 4 quadrants. No distention noted. No organomegaly noted. No visible injury noted. Back: No CVA tenderness. Full range of motion noted. Skin: Skin warm and dry. Normal skin color. Normal skin turgor. No rashes/lesions/lacerations noted. Extremities: No lower extremity edema. Extremities exhibit normal range of motion. Extremities nontender. Neuro: Oriented X 3. No motor deficit. No sensory deficit. Reflexes normal. Course Course Course Narrative: Assessment and plan. 45-year-old female came in after found unresponsive, which could be secondary to hypoglycemia but also can be due to drug overdose which patient decline. Patient had nausea and vomiting which improved in the emergency department now able to tolerate p.o. intake. Will reactivate the insulin pump. UA is consistent with UTI patient stated that she has been having urinary frequency. Will treat with cefuroxime. MDM - Altered Mental Status Lab Data Attestation: I reviewed the patient's lab results. Result diagrams: 01/04/21 19:40 01/04/21 19:40 Labs: Lab Results 01/04/21 01/04/21 01/04/21 Range/Units 18:59 19:40 19:40 WBC 6.2 (4.8-10.8) X10*3/uL RBC 5.12 (4.20-5.50) X10*6/uL Hgb 14.1 (12.0-16.0) g/dl Hct 42.5 (37-47) % MCV 83.0 (80-98) fL MCH 27.5 (27.0-33.0) pg MCHC 33.2 (31.0-35.0) g/dl RDW 20.6 H (11.0-16.0) % Plt Count 177 (160-400) X10*3/uL MPV 10.1 (9.4-12.3) fL Immature Gran % (Auto) 0.8 H (0.0-0.4) % Neut % (Auto) 61.6 (45-73) % Lymph % (Auto) 27.6 (20-40) % [place] % (Auto) 9.5 (2-11) % Eos % (Auto) 0.3 (0-4) % Baso % (Auto) 0.2 (0-2) % Lymph # (Auto) 1.7 (1.2-4.9) X10*3/uL [place] # (Auto) 0.6 (0.1-1.2) X10*3/uL Eos # (Auto) 0.0 (0.0-0.4) X10*3/uL Baso # (Auto) 0.0 (0.0-0.2) X10*3/uL Abs Immat Gran (auto) 0.05 H (0.00-0.03) X10*3/uL Absolute Neuts (auto) 3.8 (2.0-8.3) X10*3/uL Absolute Nucleated RBC 0.000 (0.0-0.012) X10*3/uL Nucleated RBC % (auto) 0.0 (0.0-0.2) /100WBC Sodium 139 (135-145) mmol/L Potassium 3.7 (3.3-5.1) mmol/L Chloride 99 (96-108) mmol/L Carbon Dioxide 28 (22-29) mmol/L Anion Gap 16 (12-20) BUN 4 L D (9-16) mg/dL Creatinine 0.66 (0.5-1.4) mg/dL Estim Creat Clear Calc 93.3 Estimated GFR > 60 POC Glucose 65 (60-115) mg/dL Random Glucose 126 H D (60-115) mg/dL Calcium 8.9 (8.4-10.2) mg/dL Total Bilirubin 0.5 (0.0-1.0) mg/dL Direct Bilirubin 0.2 (0.0-0.5) mg/dL AST 155 H (5-31) U/L ALT 77 H (0-31) U/L Alkaline Phosphatase 171 H D (39-117) U/L Total Protein 7.3 (6.5-8.0) g/dL Albumin 3.8 (3.5-5.0) g/dL Lipase 12 (8-78) U/L Urine Color Urine Appearance Urine pH (5.0-8.0) Ur Specific [place] (1.005-1.025) Urine Protein (NEG-TRACE) MG/DL Urine Glucose (UA) (NEG) MG/DL Urine Ketones (NEG) MG/DL Urine Blood (NEG) Urine Nitrite (NEG) Ur Leukocyte Esterase (NEG) 01/04/21 Range/Units 20:45 WBC (4.8-10.8) X10*3/uL RBC (4.20-5.50) X10*6/uL Hgb (12.0-16.0) g/dl Hct (37-47) % MCV (80-98) fL MCH (27.0-33.0) pg MCHC (31.0-35.0) g/dl RDW (11.0-16.0) % Plt Count (160-400) X10*3/uL MPV (9.4-12.3) fL Immature Gran % (Auto) (0.0-0.4) % Neut % (Auto) (45-73) % Lymph % (Auto) (20-40) % [place] % (Auto) (2-11) % Eos % (Auto) (0-4) % Baso % (Auto) (0-2) % Lymph # (Auto) (1.2-4.9) X10*3/uL [place] # (Auto) (0.1-1.2) X10*3/uL Eos # (Auto) (0.0-0.4) X10*3/uL Baso # (Auto) (0.0-0.2) X10*3/uL Abs Immat Gran (auto) (0.00-0.03) X10*3/uL Absolute Neuts (auto) (2.0-8.3) X10*3/uL Absolute Nucleated RBC (0.0-0.012) X10*3/uL Nucleated RBC % (auto) (0.0-0.2) /100WBC Sodium (135-145) mmol/L Potassium (3.3-5.1) mmol/L Chloride (96-108) mmol/L Carbon Dioxide (22-29) mmol/L Anion Gap (12-20) BUN (9-16) mg/dL Creatinine (0.5-1.4) mg/dL Estim Creat Clear Calc Estimated GFR POC Glucose (60-115) mg/dL Random Glucose (60-115) mg/dL Calcium (8.4-10.2) mg/dL Total Bilirubin (0.0-1.0) mg/dL Direct Bilirubin (0.0-0.5) mg/dL AST (5-31) U/L ALT (0-31) U/L Alkaline Phosphatase (39-117) U/L Total Protein (6.5-8.0) g/dL Albumin (3.5-5.0) g/dL Lipase (8-78) U/L Urine Color YELLOW Urine Appearance CLEAR Urine pH 6.5 (5.0-8.0) Ur Specific [place] <= 1.005 (1.005-1.025) Urine Protein NEG (NEG-TRACE) MG/DL Urine Glucose (UA) NEG (NEG) MG/DL Urine Ketones NEG (NEG) MG/DL Urine Blood NEG (NEG) Urine Nitrite POS H (NEG) Ur Leukocyte Esterase 2+ H (NEG) Discharge Plan Discharge Clinical Impression: Hypoglycemia due to insulin UTI (urinary tract infection) Qualifiers: Urinary tract infection type: acute cystitis Hematuria presence: without hematuria Qualified Code(s): N30.00 - Acute cystitis without hematuria Patient Disposition: Home, Self-Care Instructions: Hypoglycemia in a Person with Diabetes (ED) Prescriptions: New cefuroxime axetil 500 mg tablet 500 mg PO BID Qty: 14 RF: 0 No Action nystatin 100,000 unit/mL suspension 5 ml PO QID RF: 0 ipratropium-albuterol 0.5 mg-3 mg(2.5 mg base)/3 mL solution for nebulization 1 vial inhalation Q6H PRN (Reason: wheezing) RF: 0 Flovent HFA 220 mcg/actuation HFA aerosol inhaler 2 puff PO BID RF: 0 albuterol sulfate 90 mcg/actuation HFA aerosol inhaler 2 puff inhalation Q6H PRN (Reason: wheezing) RF: 0 sumatriptan succinate 50 mg Tablet 50 mg PO DAILY PRN (Reason: Headache) RF: 0 aspirin 81 mg Tablet,Delayed Release (Dr/Ec) 81 mg PO DAILY RF: 0 insulin lispro [Admelog U-100 Insulin lispro] 100 unit/mL Solution 80 unit SUBCUT DAILY RF: 0 (DME) subcutaneous insulin pump Misc MISCELLANEOUS RF: 0 benzonatate 100 mg Capsule 100 mg PO TID Qty: 20 RF: 0 azithromycin 500 mg Tablet 500 mg PO Q24H Qty: 2 RF: 0 prednisone 20 mg tablet 20 mg PO DAILY Qty: 7 RF: 0 prednisone 10 mg tablet 10 mg PO DAILY Qty: 7 RF: 0 azithromycin [Zithromax Z-Sanjay] 250 mg tablet 250 mg PO DAILY 5 Days Qty: 5 RF: 0 furosemide [Lasix] 20 mg tablet 20 mg PO DAILY Qty: 20 RF: 0 ondansetron 4 mg tablet,disintegrating 4 mg PO Q6-8H PRN (Reason: nausea and vomiting) Qty: 7 RF: 0 lorazepam [Ativan] 1 mg tablet 1 mg PO BID PRN (Reason: anxiety) Qty: 14 RF: 0 Referrals: Nilton Parikh MD [Primary Care Provider] - 2 days
[2021-01-04 19:34] VITALS: BP 146/67; BP 157/67; PULSE 78; PULSE 87; RESP 16; TEMP 36.6; O2SAT 98; BMI 32.3
[2021-01-04] MEDS: 0.9 % Sodium Chloride 1,000 ML 999 ML IVCONT (19:38)
[2021-01-04 19:52] LABS: Hemoglobin 14.1 g/dl (12.0-16.0); Lymphocytes Percent Auto 27.6 % (20-40); SCAN SMEAR FLAG 1
[2021-01-04 19:55] LABS: Basophils Percent Auto 0.2 % (0-2); Eosinophils Percent Auto 0.3 % (0-4); Hematocrit 42.5 % (37-47); Imm Gran Abs Auto 0.05 X10*3/uL (0.00-0.03); Imm Gran Pct Auto 0.8 % (0.0-0.4); Lymphocytes Absolute Auto 1.7 X10*3/uL (1.2-4.9); Mean Corpuscular HGB Conc 33.2 g/dl (31.0-35.0); Mean Corpuscular Hemoglobin 27.5 pg (27.0-33.0); Mean Platelet Volume 10.1 fL (9.4-12.3); Monocytes Absolute Auto 0.6 X10*3/uL (0.1-1.2); Monocytes Percent Auto 9.5 % (2-11); Neutrophils Absolute Auto 3.8 X10*3/uL (2.0-8.3); Neutrophils Percent Auto 61.6 % (45-73); Platelet Count 177 X10*3/uL (160-400); Red Blood Count 5.12 X10*6/uL (4.20-5.50); Red Cell Distribution Width 20.6 % (11.0-16.0); White Blood Count 6.2 X10*3/uL (4.8-10.8)
[2021-01-04 20:02] LABS: MANUAL DIFF FLAG NO; PLT ABN DIST 1
[2021-01-04 20:18] LABS: Alanine Aminotransferase 77 U/L (0-31); Albumin Level 3.8 g/dL (3.5-5.0); Alkaline Phosphatase 171 U/L (39-117); Anion Gap 16 (12-20); Aspartate Amino Transferase 155 U/L (5-31); Bilirubin Direct 0.2 mg/dL (0.0-0.5); Bilirubin Total 0.5 mg/dL (0.0-1.0); Blood Urea Nitrogen 4 mg/dL (9-16); Calcium 8.9 mg/dL (8.4-10.2); Carbon Dioxide 28 mmol/L (22-29); Chloride 99 mmol/L (96-108); Creatinine Clr Calc Pharmacy 93.3; Estimated Glomerular Filt Rate > 60; Glucose Random 126 mg/dL (60-115); Lipase 12 U/L (8-78); Potassium 3.7 mmol/L (3.3-5.1); Sodium 139 mmol/L (135-145); Total Protein 7.3 g/dL (6.5-8.0)
[2021-01-04 20:19] LABS: Glucose, Whole Blood 65 mg/dL (60-115)
[2021-01-04 20:53] LABS: Glucose Urine UA NEG (NEG); Leukocyte Esterase Urine 2+ (NEG); Nitrite Urine POS (NEG); PH 6.5 (5.0-8.0); Specific Gravity - Urine <= 1.005 (1.005-1.025); UACC Culture Trigger YES; Urine Blood NEG (NEG); Urine Ketones NEG (NEG); Urine Protein NEG (NEG-TRACE)
[2021-01-04 20:55] LABS: Appearance Urine CLEAR; Color Urine YELLOW
[2021-01-04 21:17] LABS: Bacteria Urine 3+ /LPF; Squamous Epithelial Cell Urine TRACE /LPF
[2021-01-04 21:21] LABS: Amphetamine Screen Urine Not Detected (Not Detect); Barbiturates, Urine Not Detected (Not Detect); Benzodiazepines Screen Urine Not Detected (Not Detect); Cannabinoid Screen Urine Not Detected (Not Detect); Cocaine Screen Urine Not Detected (Not Detect); Opiate Screen Urine Not Detected (Not Detect); Phencyclidine Screen Urine Not Detected (Not Detect)
[2021-01-04 21:41] VITALS: BP 138/55; PULSE 91; RESP 16; O2SAT 99
== END 2021-01-04 21:44 | disposition home or self-care (01) ==
PROVIDERS: Emergency Provider Emergency Medicine; PCP Family Medicine
DX: E10.649 Type 1 diabetes mellitus with hypoglycemia without coma (principal); N30.00 Acute cystitis without hematuria; F17.210 Nicotine dependence, cigarettes, uncomplicated; Z96.41 Presence of insulin pump (external) (internal); Z79.4 Long term (current) use of insulin
CPT/HCPCS: 36415; 80048; 80076; 80307; 81001; 81003; 82947; 83690; 85025; 87086; 87088; 87186; 96361; 96374; 99284

== ENCOUNTER 2021-02-07 16:19 | Emergency (ER) | payer OTHER, SELFPAY ==
[2021-02-07 16:25] VITALS: BP 150/100; PULSE 110; O2SAT 97
[2021-02-07 16:30] VITALS: BP 125/79; PULSE 94; RESP 18; TEMP 37.3; O2SAT 98; BMI 32.7
--- NOTE | 2021-02-07 16:44 | ED_ITS ---
HPI - Nausea/Vomiting/Diarrhea General Chief complaint: Nausea/Vomiting/Diarrhea Stated complaint: nausea vomiting Time Seen by Provider: 02/07/21 16:30 Source: patient Mode of arrival: ambulatory Limitations: no limitations History of Present Illness HPI Narrative: Patient comes emergency room complaining of 3 days of vomiting and diarrhea. Patient states she tried taking brop-[id number]-[id number] medication, but vomited immediately. Patient complaining of diffuse abdominal cramping, no fever or chills. No dysuria, no URI symptoms. Related Data Home Medications Medication Instructions Recorded Confirmed albuterol sulfate 90 mcg/actuation 2 puff INHALATION Q6H PRN 10/04/20 10/11/20 aerosol inhaler aspirin 81 mg tablet,delayed 81 mg PO DAILY 10/04/20 10/11/20 release fluticasone propionate 220 2 puff PO BID 10/04/20 10/11/20 mcg/actuation HFA aerosol inhaler (Flovent HFA) insulin lispro 100 unit/mL 80 unit SUBCUT DAILY 10/04/20 10/11/20 subcutaneous solution (Admelog U-100 Insulin lispro) ipratropium 0.5 mg-albuterol 3 mg 1 vial INHALATION Q6H PRN 10/04/20 10/11/20 (2.5 mg base)/3 mL nebulization soln nystatin 100,000 unit/mL oral 5 ml PO QID 10/04/20 10/11/20 suspension subcutaneous insulin pump 10/04/20 10/04/20 sumatriptan succinate 50 mg tablet 50 mg PO DAILY PRN 10/04/20 10/11/20 Previous Rx's Medication Instructions Recorded azithromycin 500 mg tablet 500 mg PO Q24H #2 tab 10/07/20 benzonatate 100 mg capsule 100 mg PO TID #20 cap 10/07/20 prednisone 10 mg tablet 10 mg PO DAILY #7 tab 10/07/20 prednisone 20 mg tablet 20 mg PO DAILY #7 tab 10/07/20 azithromycin 250 mg tablet 250 mg PO DAILY 5 Days #5 tab 10/11/20 (Zithromax Z-Sanjay) furosemide 20 mg tablet (Lasix) 20 mg PO DAILY #20 tab 10/11/20 lorazepam 1 mg tablet (Ativan) 1 mg PO BID PRN #14 tab 12/15/20 ondansetron 4 mg disintegrating 4 mg PO Q6-8H PRN #7 tab 12/15/20 tablet cefuroxime axetil 500 mg tablet 500 mg PO BID #14 tab 01/04/21 cefuroxime axetil 500 mg tablet 500 mg PO BID #13 tab 02/07/21 loperamide 2 mg capsule 2 mg PO Q6H PRN #14 cap 02/07/21 ondansetron HCl 4 mg tablet 4 mg PO Q6H PRN #14 tab 02/07/21 (Zofran) Allergies Allergy/AdvReac Type Severity Reaction Status Date / Time ibuprofen [IBUPROFEN] Allergy Unknown LIGHTHEADED;FEELS Verified 12/14/20 23:29 LIKE CHEST IS CLOSING IN;CLAUSTROPHOBIC Review of Systems Review of Systems: Constitutional : No Weight loss, No Fever, No Chills, No Night Sweats, No Fatigue, No Malaise ENT/Mouth : No Hearing loss, No Ear Pain, No Nasal Congestion, No Sinus Pain, No Hoarseness, No sore throat, No Rhinorrhea, No Swallowing Difficulty Eyes: No Eye Pain, No Swelling, No Redness, No Foreign Body, No Discharge, No Vision Changes Cardiovascular : No Chest Pain, No SOB, No Dyspnea on Exertion, No Orthopnea, No Edema, No Palpitations Respiratory : No Cough, No Sputum, No Wheezing, No Smoke Exposure, No Dyspnea Gastrointestinal planning of nausea vomiting and diarrhea No Constipation, No abdominal Pain, No Hematochezia, No Melena Genitourinary : no irregular bleeding, No Dysuria, No Urinary Frequency, No Hematuria, No Urinary Incontinence, No Urgency, No Flank Pain, No Urinary Flow Changes, No Hesitancy Musculoskeletal : No joint pain, No Myalgias, No Joint Swelling Skin : No Skin Lesions, No rash Neuro : No Weakness, No Numbness, No Paresthesias, No Loss of Consciousness, No Dizziness, No Headache Psych : No Anxiety/Panic, No Depression, No SI/HI/AH/VH, No Social Issues, Heme/Lymph: No Bruising, No Bleeding,No Lymphadenopathy Endocrine : No Polyuria, No Polydipsia, No Temperature Intolerance [facility] Past Medical History Medical History Asthma Diabetes Diabetic acetonemia Drug abuse in remission Pneumonia Pneumonia Post-tubal ligation syndrome Social History Social History Household Members: Spouse Housing: House Do you presently have visiting nurse or other home services: Yes (market garden worker through [facility]) Cigarette Packs Per Day: 1.5 Cigarettes Per Day: 30.0 Years Smoked: 32 Substance Use Type: Heroin Advance Directives: No Advance Directives Information Provided: Yes Patient : No service: No Current occupational status: unemployed Physical Exam Vital Signs: Vital Signs: Last Vital Signs Temp 98.2 F 02/07/21 19:17 Pulse 86 02/07/21 19:17 Resp 18 02/07/21 19:17 BP 168/79 H 02/07/21 19:17 Pulse Ox 99 02/07/21 19:17 Oxygen Flow Rate 2 02/07/21 16:30 Body Mass Index 32.7 Const: Other: Appearance: Alert. Oriented X3. No acute distress. Eyes: Pupils equal, round and reactive to light. ENT: Pharynx normal. Chronic hoarse voice Neck: Normal inspection. Neck supple. No lymph nodes noted. No crepitus CVS: Normal heart rate and rhythm. Pulses normal. Normal S1 and S2 Respiratory: No respiratory distress. Breath sounds normal. No Wheezing. No rales Abdomen: Soft and nontender. No rigidity. No distention. good BS x4 Skin: Skin warm and dry. Normal skin color. Normal skin turgor. Extremities: No lower extremity edema. No lower extremity edema. No Lacerations. No Rash Neuro: Oriented X 3. No motor deficit. No sensory deficit. Moving all extermities. No slurred speech. Course Course Course Narrative: Patient was given 1 dose ceftriaxone for the UTI, loperamide, Zofran, patient was also found to be hyperglycemic, she was given insulin. Patient also received 1 L of normal saline. I discussed with the patient that she has a UTI. Patient also mentioned that she ran out of her methadone, has not had any for over 4 days. I discussed with her that it is likely that the symptoms she is having including vomiting and diarrhea are likely due to the withdrawal symptoms. After receiving the medication, patient feeling better, no longer vomiting or having any diarrhea MDM - Nausea/Vomiting/Diarrhea Lab Data Result diagrams: 02/07/21 17:35 02/07/21 17:35 Labs: Lab Results 02/07/21 02/07/2121 Range/Units 17:21 17:35 17:35 WBC 9.1 (4.8-10.8) X10*3/uL RBC 4.65 (4.20-5.50) X10*6/uL Hgb 14.1 (12.0-16.0) g/dl Hct 40.4 (37-47) % MCV 86.9 (80-98) fL MCH 30.3 (27.0-33.0) pg MCHC 34.9 (31.0-35.0) g/dl RDW 15.9 (11.0-16.0) % Plt Count 264 D (160-400) X10*3/uL MPV 11.5 (9.4-12.3) fL Immature Gran % (Auto) 0.3 (0.0-0.4) % Neut % (Auto) 79.3 H (45-73) % Lymph % (Auto) 14.9 L (20-40) % Hardy % (Auto) 5.5 (2-11) % Eos % (Auto) 0.0 (0-4) % Baso % (Auto) 0.0 (0-2) % Lymph # (Auto) 1.4 (1.2-4.9) X10*3/uL Hardy # (Auto) 0.5 (0.1-1.2) X10*3/uL Eos # (Auto) 0.0 (0.0-0.4) X10*3/uL Baso # (Auto) 0.0 (0.0-0.2) X10*3/uL Abs Immat Gran (auto) 0.03 (0.00-0.03) X10*3/uL Absolute Neuts (auto) 7.2 (2.0-8.3) X10*3/uL Absolute Nucleated RBC 0.000 (0.0-0.012) X10*3/uL Nucleated RBC % (auto) 0.0 (0.0-0.2) /100WBC Sodium 134 L (135-145) mmol/L Potassium 4.1 (3.3-5.1) mmol/L Chloride 99 (96-108) mmol/L Carbon Dioxide 25 (22-29) mmol/L Anion Gap 14 (12-20) BUN 8 L D (9-16) mg/dL Creatinine 0.90 (0.5-1.4) mg/dL Estim Creat Clear Calc 68.2 Estimated GFR > 60 POC Glucose 373 H* (60-115) mg/dL Random Glucose 407 H* (60-115) mg/dL Calcium 9.1 (8.4-10.2) mg/dL Total Bilirubin 1.2 H (0.0-1.0) mg/dL Direct Bilirubin 0.6 H (0.0-0.5) mg/dL AST 158 H (5-31) U/L ALT 91 H (0-31) U/L Alkaline Phosphatase 200 H (39-117) U/L Total Protein 7.6 (6.5-8.0) g/dL Albumin 4.0 (3.5-5.0) g/dL Urine Color Urine Appearance Urine pH (5.0-8.0) Ur Specific [place] (1.005-1.025) Urine Protein (NEG-TRACE) MG/DL Urine Glucose (UA) (NEG) MG/DL Urine Ketones (NEG) MG/DL Urine Blood (NEG) Urine Nitrite (NEG) Ur Leukocyte Esterase (NEG) Ethyl Alcohol mg/dL 02/07/21 02/07/21 02/07/21 Range/Units 17:35 19:56 20:03 WBC (4.8-10.8) X10*3/uL RBC (4.20-5.50) X10*6/uL Hgb (12.0-16.0) g/dl Hct (37-47) % MCV (80-98) fL MCH (27.0-33.0) pg MCHC (31.0-35.0) g/dl RDW (11.0-16.0) % Plt Count (160-400) X10*3/uL MPV (9.4-12.3) fL Immature Gran % (Auto) (0.0-0.4) % Neut % (Auto) (45-73) % Lymph % (Auto) (20-40) % Hardy % (Auto) (2-11) % Eos % (Auto) (0-4) % Baso % (Auto) (0-2) % Lymph # (Auto) (1.2-4.9) X10*3/uL Hardy # (Auto) (0.1-1.2) X10*3/uL Eos # (Auto) (0.0-0.4) X10*3/uL Baso # (Auto) (0.0-0.2) X10*3/uL Abs Immat Gran (auto) (0.00-0.03) X10*3/uL Absolute Neuts (auto) (2.0-8.3) X10*3/uL Absolute Nucleated RBC (0.0-0.012) X10*3/uL Nucleated RBC % (auto) (0.0-0.2) /100WBC Sodium (135-145) mmol/L Potassium (3.3-5.1) mmol/L Chloride (96-108) mmol/L Carbon Dioxide (22-29) mmol/L Anion Gap (12-20) BUN (9-16) mg/dL Creatinine (0.5-1.4) mg/dL Estim Creat Clear Calc Estimated GFR POC Glucose 212 H (60-115) mg/dL Random Glucose (60-115) mg/dL Calcium (8.4-10.2) mg/dL Total Bilirubin (0.0-1.0) mg/dL Direct Bilirubin (0.0-0.5) mg/dL AST (5-31) U/L ALT (0-31) U/L Alkaline Phosphatase (39-117) U/L Total Protein (6.5-8.0) g/dL Albumin (3.5-5.0) g/dL Urine Color YELLOW Urine Appearance CLOUDY Urine pH 6.0 (5.0-8.0) Ur Specific [place] 1.010 (1.005-1.025) Urine Protein 1+ H (NEG-TRACE) MG/DL Urine Glucose (UA) >=1000 H (NEG) MG/DL Urine Ketones 40 (NEG) MG/DL Urine Blood NEG (NEG) Urine Nitrite POS H (NEG) Ur Leukocyte Esterase NEG (NEG) Ethyl Alcohol < 10 mg/dL Discharge Plan Discharge Clinical Impression: Vomiting, Diarrhea, Acute hyperglycemia, UTI (urinary tract infection) Patient Disposition: Home, Self-Care Instructions: Urinary Tract Infection in Women (ED) Additional Instructions: Try to stay hydrated, drink fluids with electrolytes such as Powerade, Gatorade, Pedialyte. Please follow-up with your methadone clinic tomorrow. Please follow-up with you r primary care physician tomorrow. If you have any worsening or new symptoms, please return to the emergency room or call 911 Prescriptions: New ondansetron HCl [Zofran] 4 mg tablet 4 mg PO Q6H PRN (Reason: nausea and vomiting) Qty: 14 RF: 0 loperamide 2 mg capsule 2 mg PO Q6H PRN (Reason: loose stool) Qty: 14 RF: 0 cefuroxime axetil 500 mg tablet 500 mg PO BID Qty: 13 RF: 0 No Action cefuroxime axetil 500 mg tablet 500 mg PO BID Qty: 14 RF: 0 nystatin 100,000 unit/mL suspension 5 ml PO QID RF: 0 ipratropium-albuterol 0.5 mg-3 mg(2.5 mg base)/3 mL solution for nebulization 1 vial inhalation Q6H PRN (Reason: wheezing) RF: 0 Flovent HFA 220 mcg/actuation HFA aerosol inhaler 2 puff PO BID RF: 0 albuterol sulfate 90 mcg/actuation HFA aerosol inhaler 2 puff inhalation Q6H PRN (Reason: wheezing) RF: 0 sumatriptan succinate 50 mg Tablet 50 mg PO DAILY PRN (Reason: Headache) RF: 0 aspirin 81 mg Tablet,Delayed Release (Dr/Ec) 81 mg PO DAILY RF: 0 insulin lispro [Admelog U-100 Insulin lispro] 100 unit/mL Solution 80 unit SUBCUT DAILY RF: 0 (DME) subcutaneous insulin pump Misc MISCELLANEOUS RF: 0 benzonatate 100 mg Capsule 100 mg PO TID Qty: 20 RF: 0 azithromycin 500 mg Tablet 500 mg PO Q24H Qty: 2 RF: 0 prednisone 20 mg tablet 20 mg PO DAILY Qty: 7 RF: 0 prednisone 10 mg tablet 10 mg PO DAILY Qty: 7 RF: 0 azithromycin [Zithromax Z-Sanjay] 250 mg tablet 250 mg PO DAILY 5 Days Qty: 5 RF: 0 furosemide [Lasix] 20 mg tablet 20 mg PO DAILY Qty: 20 RF: 0 ondansetron 4 mg tablet,disintegrating 4 mg PO Q6-8H PRN (Reason: nausea and vomiting) Qty: 7 RF: 0 lorazepam [Ativan] 1 mg tablet 1 mg PO BID PRN (Reason: anxiety) Qty: 14 RF: 0
--- NOTE | 2021-02-07 17:00 | PC.NURSE ---
Pt alert and oriented x3, vss, Pt reports n/v/d x3 days. she denies any exposure to anyone sick. Pt has hx of asthma, copd, she is on 2L N/C at home, and is insulin dependent diabetic with insulin pump in place. POC checked on arrival 383, Dr. Anne made aware. Pt states she is on methadone and last dosed on 01/31/21 at 35mg. Pt is questioning whether that could be the cause of how she is feeling. She denies recent substance use. No active vomiting however she reports feeling nauseous. Meds administered as documented, fluids hung. No apparent distress noted. Pt resting quietly.
[2021-02-07 17:09] VITALS: BP 128/80; PULSE 90; RESP 20; TEMP 36.7; O2SAT 98
[2021-02-07] MEDS: 0.9 % Sodium Chloride 1,000 ML 999 ML IVCONT (17:16)
[2021-02-07 17:26] LABS: Glucose, Whole Blood 373 mg/dL (60-115)
[2021-02-07 17:40] LABS: MANUAL DIFF FLAG NO
[2021-02-07 17:42] LABS: Hematocrit 40.4 % (37-47); Hemoglobin 14.1 g/dl (12.0-16.0); Imm Gran Abs Auto 0.03 X10*3/uL (0.00-0.03); Imm Gran Pct Auto 0.3 % (0.0-0.4); Lymphocytes Absolute Auto 1.4 X10*3/uL (1.2-4.9); Lymphocytes Percent Auto 14.9 % (20-40); Mean Corpuscular HGB Conc 34.9 g/dl (31.0-35.0); Mean Corpuscular Hemoglobin 30.3 pg (27.0-33.0); Mean Corpuscular Volume 86.9 fL (80-98); Mean Platelet Volume 11.5 fL (9.4-12.3); Monocytes Absolute Auto 0.5 X10*3/uL (0.1-1.2); Monocytes Percent Auto 5.5 % (2-11); Neutrophils Absolute Auto 7.2 X10*3/uL (2.0-8.3); Neutrophils Percent Auto 79.3 % (45-73); Platelet Count 264 X10*3/uL (160-400); Red Blood Count 4.65 X10*6/uL (4.20-5.50); Red Cell Distribution Width 15.9 % (11.0-16.0); White Blood Count 9.1 X10*3/uL (4.8-10.8)
[2021-02-07] MEDS: ondansetron HCL 4 MG/2 ML VIAL IVPUSH (17:52)
[2021-02-07] MEDS: Loperamide HCl 2 MG CAPSULE 4 MG PO (17:53)
[2021-02-07 18:05] LABS: Ethanol < 10 mg/dL
[2021-02-07 18:12] LABS: Alanine Aminotransferase 91 U/L (0-31); Alkaline Phosphatase 200 U/L (39-117); Anion Gap 14 (12-20); Aspartate Amino Transferase 158 U/L (5-31); Bilirubin Direct 0.6 mg/dL (0.0-0.5); Bilirubin Total 1.2 mg/dL (0.0-1.0); Blood Urea Nitrogen 8 mg/dL (9-16); Calcium 9.1 mg/dL (8.4-10.2); Carbon Dioxide 25 mmol/L (22-29); Chloride 99 mmol/L (96-108); Creatinine Clr Calc Pharmacy 68.2; Estimated Glomerular Filt Rate > 60; Glucose Random 407 mg/dL (60-115); Potassium 4.1 mmol/L (3.3-5.1); Sodium 134 mmol/L (135-145); Total Protein 7.6 g/dL (6.5-8.0)
[2021-02-07] MEDS: Insulin Regular, Human 100 UNIT/ML 3 ML VIAL 10 UNIT IVPUSH (19:05)
[2021-02-07 19:17] VITALS: BP 168/79; PULSE 86; RESP 18; TEMP 36.8; O2SAT 99
[2021-02-07 20:06] LABS: Glucose Urine UA >=1000 MG/DL (NEG); Leukocyte Esterase Urine NEG (NEG); Nitrite Urine POS (NEG); UACC Culture Trigger YES; Urine Blood NEG (NEG); Urine Ketones 40 MG/DL (NEG); Urine Protein 1+ MG/DL (NEG-TRACE)
[2021-02-07 20:06] LABS: Glucose, Whole Blood 212 mg/dL (60-115)
[2021-02-07 20:07] LABS: Appearance Urine CLOUDY; Color Urine YELLOW
[2021-02-07 20:28] LABS: Bacteria Urine 3+ /LPF; Mucus Urine TRACE /LPF; Squamous Epithelial Cell Urine TRACE /LPF; WBC Urine 30-49 /HPF (0-4)
[2021-02-07 20:29] LABS: Amphetamine Screen Urine Not Detected (Not Detect); Barbiturates, Urine Not Detected (Not Detect); Benzodiazepines Screen Urine Not Detected (Not Detect); Cannabinoid Screen Urine Not Detected (Not Detect); Cocaine Screen Urine Not Detected (Not Detect); Opiate Screen Urine Not Detected (Not Detect); Phencyclidine Screen Urine Not Detected (Not Detect)
[2021-02-07] MEDS: cefTRIAXone sodium 1 GM in 0.9 % Sodium Chloride 50 ML IV (20:38)
== END 2021-02-07 21:08 | disposition home or self-care (01) ==
PROVIDERS: Emergency Provider Emergency Medicine; PCP Family Medicine
DX: E11.65 Type 2 diabetes mellitus with hyperglycemia (principal); N39.0 Urinary tract infection, site not specified; R11.2 Nausea with vomiting, unspecified; E11.9 Type 2 diabetes mellitus without complications; F17.210 Nicotine dependence, cigarettes, uncomplicated; Z79.899 Other long term (current) drug therapy; Z79.82 Long term (current) use of aspirin; Z79.4 Long term (current) use of insulin; Z71.6 Tobacco abuse counseling
CPT/HCPCS: 36415; 80048; 80076; 80307; 81001; 82077; 82947; 85025; 87086; 87088; 87186; 96361; 96365; 96375; 99284; J0696; J2405

== ENCOUNTER 2021-05-07 10:11 | Inpatient (IN) | payer OTHER, SELFPAY ==
[2021-05-07] VITALS (20 sets, daily range): BP systolic 102–170; BP diastolic 51–121; PULSE 94–116; RESP 12–20; TEMP 36.9–37.3; O2SAT 90–100; BMI 31.1
--- NOTE | ~2021-05-07 | CT_ITS ---
EXAMINATION: CT CHEST WITHOUT CONTRAST CLINICAL INFORMATION: Altered mental status, concern for aspiration COMPARISON: CT angiogram of the chest 10/04/2020 TECHNIQUE: Multidetector volumetric CT imaging of the chest was done. Axial MIP volume rendering provided. Sagittal and coronal reformatted images were obtained. This CT examination was performed using dose optimization techniques as appropriate, variously including the following: *Automated exposure control *Adjustment of mA and/or kV according to patient size (this includes techniques or standardized protocols for targeted exams where dose is matched to indication/reason for exam; i.e. extremities or head) *Use of iterative reconstruction technique DLP: 476 mGy-cm FINDINGS: CARE ASSISTANT: Adequate expansion of the lungs. LUNGS: Evaluation is limited due to motion artifact. There are are tree-in-bud opacities and groundglass opacities in the peripheral left lower lobe. There are also scattered ground glass opacities in the bilateral lung apices. No large focal consolidation. No suspicious nodule or mass. MEDIASTINUM: Normal heart size. No peripherally effusion. No hilar or mediastinal lymphadenopathy. PLEURA: There is no pleural effusion. No pleural mass or thickening. AXILLA: No lymphadenopathy. UPPER ABDOMEN: Unremarkable. OSSEOUS STRUCTURES: No acute or suspicious osseous abnormality. CT/CT chest wo con IMPRESSION: Tree-in-bud opacities and ground glass opacities in the peripheral left lower lobe, which may represent an area of aspiration versus developing infectious infiltrate. Additional areas of groundglass opacity in the bilateral lung apices, may reflect infection or inflammation.
--- NOTE | ~2021-05-07 | CT_ITS ---
EXAMINATION: CT HEAD WITHOUT CONTRAST CLINICAL INFORMATION: Altered mental status COMPARISON: CT of the head 10/04/2020 TECHNIQUE: Contiguous axial imaging was performed from the skull base to vertex without intravenous administration of contrast. This CT examination was performed using dose optimization techniques as appropriate, variously including the following: *Automated exposure control *Adjustment of mA and/or kV according to patient size (this includes techniques or standardized protocols for targeted exams where dose is matched to indication/reason for exam; i.e. extremities or head) *Use of iterative reconstruction technique DLP: 605 mGy-cm FINDINGS: There is no evidence of acute intracranial hemorrhage or territorial infarction. No abnormal mass effect or midline shift is seen. Naylor to white matter differentiation is well preserved. No extra-axial fluid collections are identified. The ventricles are normal in size. There is no abnormal attenuation within the brain parenchyma. The osseous structures and soft tissues are normal. The mastoid air cells are well aerated. There are polyps in the left maxillary sinus and mucosal disease in the bilateral ethmoid air cells and right maxillary sinus. CT/CT head/brain wo con IMPRESSION: No acute intracranial pathology.
--- NOTE | ~2021-05-07 | XR_ITS ---
EXAMINATION: XR CHEST CLINICAL INFORMATION: Hypoxemia on room air COMPARISON: CT and chest x-ray 05/07/2020 TECHNIQUE: Frontal view of the chest was obtained. FINDINGS: No significant abnormality is noted involving the heart, lungs, mediastinum, bony thorax or soft tissues. XR/XR chest 1V IMPRESSION: No acute pulmonary disease. No significant change from recent prior studies.
--- NOTE | ~2021-05-07 | XR_ITS ---
EXAMINATION: XR CHEST CLINICAL INFORMATION: Overdose. COMPARISON: 10/11/2020 chest radiograph. TECHNIQUE: Frontal view of the chest was obtained. FINDINGS: The lungs are clear. The heart and mediastinal structures are unremarkable. XR/XR chest 1V IMPRESSION: No acute cardiopulmonary process. Interval resolution of bilateral infiltrates.
--- NOTE | 2021-05-07 10:18 | ECG_ITS ---
Test Reason : OVERDOSE Blood Pressure : / mmHG Vent. Rate : 097 BPM Atrial Rate : 097 BPM P-R Int : 154 ms QRS Dur : 082 ms QT Int : 352 ms P-R-T Axes : 060 025 050 degrees QTc Int : 447 ms Normal sinus rhythm Normal ECG No significant changes seen Referred By: Marina Marie Electronically Signed By:LEILA LOGAN MD
--- NOTE | 2021-05-07 10:20 | ED.OVERDOSE ---
HPI - Overdose General Chief Complaint: Overdose Stated Complaint: UNRESPONSIVE ? OD,NARCAN GIVEN PER EMS Time Seen by Provider: 05/07/21 10:18 Source: patient and EMS Mode of arrival: EMS Limitations: other (poor historian still confused, groggy) History of Present Illness HPI Narrative: stopped going to methadone clinic in january because she doesn't like waiting in the line, does not want suboxone and refuses detox complaint: accidental overdose Onset (ago): minute(s) (EMS notes downtime 20minutes ago) Timing confirmed by: family member Context: Accidental Overdose: wanted to get high Treatments Prior to Arrival: narcan (2mg IN found with pinpoint pupils responded well, noted she sniffed 1 bag of heroin, patient's blood sugar also 500, insulin pump turned off) Related Data Home Medications Medication Instructions Recorded Confirmed albuterol sulfate 90 mcg/actuation 2 puff INHALATION Q6H PRN 10/04/20 10/11/20 aerosol inhaler aspirin 81 mg tablet,delayed 81 mg PO DAILY 10/04/20 10/11/20 release fluticasone propionate 220 2 puff PO BID 10/04/20 10/11/20 mcg/actuation HFA aerosol inhaler (Flovent HFA) insulin lispro 100 unit/mL 80 unit SUBCUT DAILY 10/04/20 10/11/20 subcutaneous solution (Admelog U-100 Insulin lispro) ipratropium 0.5 mg-albuterol 3 mg 1 vial INHALATION Q6H PRN 10/04/20 10/11/20 (2.5 mg base)/3 mL nebulization soln nystatin 100,000 unit/mL oral 5 ml PO QID 10/04/20 10/11/20 suspension subcutaneous insulin pump 10/04/20 10/04/20 sumatriptan succinate 50 mg tablet 50 mg PO DAILY PRN 10/04/20 10/11/20 Previous Rx's Medication Instructions Recorded azithromycin 500 mg tablet 500 mg PO Q24H #2 tab 10/07/20 benzonatate 100 mg capsule 100 mg PO TID #20 cap 10/07/20 prednisone 10 mg tablet 10 mg PO DAILY #7 tab 10/07/20 prednisone 20 mg tablet 20 mg PO DAILY #7 tab 10/07/20 azithromycin 250 mg tablet 250 mg PO DAILY 5 Days #5 tab 10/11/20 (Zithromax Z-Sanjay) furosemide 20 mg tablet (Lasix) 20 mg PO DAILY #20 tab 10/11/20 lorazepam 1 mg tablet (Ativan) 1 mg PO BID PRN #14 tab 12/15/20 ondansetron 4 mg disintegrating 4 mg PO Q6-8H PRN #7 tab 12/15/20 tablet cefuroxime axetil 500 mg tablet 500 mg PO BID #14 tab 01/04/21 cefuroxime axetil 500 mg tablet 500 mg PO BID #13 tab 02/07/21 loperamide 2 mg capsule 2 mg PO Q6H PRN #14 cap 02/07/21 ondansetron HCl 4 mg tablet 4 mg PO Q6H PRN #14 tab 02/07/21 (Zofran) Allergies Allergy/AdvReac Type Severity Reaction Status Date / Time ibuprofen [IBUPROFEN] Allergy Unknown LIGHTHEADED;FEELS Verified 12/14/20 23:29 LIKE CHEST IS CLOSING IN;CLAUSTROPHOBIC Review of Systems Review of Systems: ROS unable to be obtained due to altered mental status [facility] Past Medical History Attestation statement: The following information was validated with the patient. 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 Moderate acute distress. Eyes: Pupils equal, round and reactive to light. ENT: Pharynx normal. Neck: Normal inspection. Neck supple. CVS: Normal heart rate and rhythm. Pulses normal. Respiratory: poor inspiratory effort respiratory distress. Breath sounds diminished - coarse cough heard Abdomen: Soft and nontender. insulin pump off - removed Skin: Skin warm and dry. Normal skin color. Normal skin turgor. Extremities: No lower extremity edema. No calf ttp Neuro: Oriented X 3. No motor deficit. No sensory deficit. Course Course Course Narrative: yawning more awake after narcan, O2 sats improved after neb and narcan 99% on 2L NC patient much more awake after 2nd dose of IV 0.2 mg narcan IVF ordered repeat neb ordered 100% on 2L NC at this time still sleepy but easily woken repeat 0.4mg narcan ordered - woke up with coughing fit her last UTI was S to ampicillin E. Coli ESBL neg planned admit once her narcan need is determined, repeat lactic and VBG pending repeat 0.4mg narcan again needs strong stimuli to wake up her CO is compensated now but she is high risk - plan to start on 1mg/hr narcan gtt admit to ICU MDM - Overdose MDM Narrative Medical decision making narrative: 46 yo female with asthma, IDDM, substance abuse issues comes in after being found unresponsive at home down 20 minutes has narcan at home but EMS notes she was found with pinpoint pupils they administered 2mg IN narcan with good effect here she is diminished resp reed - labs, CXR, neb treatment, COVID swab, she is very groggy and has poor insp effort repeat low dose narcan ordered, IV steroids for asthma, dispo per results and observation - patient denies SI. She is declining all substance abuse interventions at this time Lab Data Result diagrams: 05/07/21 10:39 05/07/21 10:39 Labs: Lab Results 05/07/21 05/07/21 05/07/21 Range/Units 10:39 10:39 10:39 WBC 15.8 H (4.8-10.8) X10*3/uL RBC 4.24 (4.20-5.50) X10*6/uL Hgb 13.2 (12.0-16.0) g/dl Hct 41.4 (37.0-47.0) % MCV 97.6 (80.0-98.0) fL MCH 31.1 (27.0-33.0) pg MCHC 31.9 (31.0-35.0) g/dl RDW 13.2 (11.0-16.0) % Plt Count 245 (160-400) X10*3/uL MPV 10.7 (9.4-12.3) fL Immature Gran % (Auto) 0.6 H (0.0-0.4) % Neut % (Auto) 87.3 H (45-73) % Lymph % (Auto) 7.4 L (20-40) % [place] % (Auto) 4.5 (2-11) % Eos % (Auto) 0.1 (0-4) % Baso % (Auto) 0.1 (0-2) % Lymph # (Auto) 1.2 (1.2-4.9) X10*3/uL [place] # (Auto) 0.7 (0.1-1.2) X10*3/uL Eos # (Auto) 0.0 (0.0-0.4) X10*3/uL Baso # (Auto) 0.0 (0.0-0.2) X10*3/uL Abs Immat Gran (auto) 0.10 H (0.00-0.03) X10*3/uL Absolute Neuts (auto) 13.8 H (2.0-8.3) x10*3/uL Absolute Nucleated RBC 0.000 (0.0-0.012) X10*3/uL Nucleated RBC % (auto) 0.0 (0.0-0.2) /100WBC VBG pH (7.32-7.43) VBG pCO2 mmHg VBG pO2 mmHg VBG HCO3 (22-26) mmol/L VBG O2 Saturation % VBG Base Excess mmol/L Sodium 133 L (135-145) mmol/L Potassium 5.1 D (3.3-5.1) mmol/L Chloride 91 L (96-108) mmol/L Carbon Dioxide 31 H (22-29) mmol/L Anion Gap 16 (12-20) BUN 12 (9-16) mg/dL Creatinine 0.98 (0.5-1.4) mg/dL Estim Creat Clear Calc 68.9 Estimated GFR > 60 Random Glucose 557 H* (60-115) mg/dL Lactic Acid (0.5-2.0) mmol/L Calcium 8.9 (8.4-10.2) mg/dL Magnesium 1.9 (1.6-2.6) mg/dL Total Bilirubin 0.5 (0.0-1.0) mg/dL Direct Bilirubin 0.3 (0.0-0.5) mg/dL AST 150 H (5-31) U/L ALT 95 H (0-31) U/L Alkaline Phosphatase 106 D (39-117) U/L Total Protein 7.3 (6.5-8.0) g/dL Albumin 3.8 (3.5-5.0) g/dL Urine Color Urine Appearance Urine pH (5.0-8.0) Ur Specific [place] (1.005-1.025) Urine Protein (NEG-TRACE) MG/DL Urine Glucose (UA) (NEG) MG/DL Urine Ketones (NEG) MG/DL Urine Blood (NEG) Urine Nitrite (NEG) Ur Leukocyte Esterase (NEG) Urine RBC (0) /HPF Urine WBC (0-4) /HPF Ur Squamous Epith Cells /LPF Urine Bacteria /LPF Urine Opiates Screen (Not Detect) Urine Fentanyl Screen (Not Detect) Ur Barbiturates Screen (Not Detect) Ur Phencyclidine Scrn (Not Detect) Ur Amphetamines Screen (Not Detect) U Benzodiazepines Scrn (Not Detect) Urine Cocaine Screen (Not Detect) U Marijuana (THC) Screen (Not Detect) Acetone, Qual Negative (Negative) COVID-19 (NUBIA) Negative (Negative) COVID-19 Clin Com See Note 05/07/21 05/07/21 05/07/21 Range/Units 10:39 11:18 11:18 WBC (4.8-10.8) X10*3/uL RBC (4.20-5.50) X10*6/uL Hgb (12.0-16.0) g/dl Hct (37.0-47.0) % MCV (80.0-98.0) fL MCH (27.0-33.0) pg MCHC (31.0-35.0) g/dl RDW (11.0-16.0) % Plt Count (160-400) X10*3/uL MPV (9.4-12.3) fL Immature Gran % (Auto) (0.0-0.4) % Neut % (Auto) (45-73) % Lymph % (Auto) (20-40) % [place] % (Auto) (2-11) % Eos % (Auto) (0-4) % Baso % (Auto) (0-2) % Lymph # (Auto) (1.2-4.9) X10*3/uL [place] # (Auto) (0.1-1.2) X10*3/uL Eos # (Auto) (0.0-0.4) X10*3/uL Baso # (Auto) (0.0-0.2) X10*3/uL Abs Immat Gran (auto) (0.00-0.03) X10*3/uL Absolute Neuts (auto) (2.0-8.3) x10*3/uL Absolute Nucleated RBC (0.0-0.012) X10*3/uL Nucleated RBC % (auto) (0.0-0.2) /100WBC VBG pH (7.32-7.43) VBG pCO2 mmHg VBG pO2 mmHg VBG HCO3 (22-26) mmol/L VBG O2 Saturation % VBG Base Excess mmol/L Sodium (135-145) mmol/L Potassium (3.3-5.1) mmol/L Chloride (96-108) mmol/L Carbon Dioxide (22-29) mmol/L Anion Gap (12-20) BUN (9-16) mg/dL Creatinine (0.5-1.4) mg/dL Estim Creat Clear Calc Estimated GFR Random Glucose (60-115) mg/dL Lactic Acid 2.1 H* (0.5-2.0) mmol/L Calcium (8.4-10.2) mg/dL Magnesium (1.6-2.6) mg/dL Total Bilirubin (0.0-1.0) mg/dL Direct Bilirubin (0.0-0.5) mg/dL AST (5-31) U/L ALT (0-31) U/L Alkaline Phosphatase (39-117) U/L Total Protein (6.5-8.0) g/dL Albumin (3.5-5.0) g/dL Urine Color YELLOW Urine Appearance CLOUDY Urine pH 6.0 (5.0-8.0) Ur Specific [place] 1.015 (1.005-1.025) Urine Protein TRACE (NEG-TRACE) MG/DL Urine Glucose (UA) >=1000 H (NEG) MG/DL Urine Ketones 5 (NEG) MG/DL Urine Blood NEG (NEG) Urine Nitrite POS H (NEG) Ur Leukocyte Esterase NEG (NEG) Urine RBC 0 (0) /HPF Urine WBC 30-49 H (0-4) /HPF Ur Squamous Epith Cells 1+ /LPF Urine Bacteria 3+ /LPF Urine Opiates Screen Not Detected (Not Detect) Urine Fentanyl Screen POSITIVE H (Not Detect) Ur Barbiturates Screen Not Detected (Not Detect) Ur Phencyclidine Scrn Not Detected (Not Detect) Ur Amphetamines Screen Not Detected (Not Detect) U Benzodiazepines Scrn Not Detected (Not Detect) Urine Cocaine Screen POSITIVE H (Not Detect) U Marijuana (THC) Screen Not Detected (Not Detect) Acetone, Qual (Negative) COVID-19 (NUBIA) (Negative) COVID-19 Clin Com 05/07/21 05/07/21 Range/Units 12:40 12:41 WBC (4.8-10.8) X10*3/uL RBC (4.20-5.50) X10*6/uL Hgb (12.0-16.0) g/dl Hct (37.0-47.0) % MCV (80.0-98.0) fL MCH (27.0-33.0) pg MCHC (31.0-35.0) g/dl RDW (11.0-16.0) % Plt Count (160-400) X10*3/uL MPV (9.4-12.3) fL Immature Gran % (Auto) (0.0-0.4) % Neut % (Auto) (45-73) % Lymph % (Auto) (20-40) % [place] % (Auto) (2-11) % Eos % (Auto) (0-4) % Baso % (Auto) (0-2) % Lymph # (Auto) (1.2-4.9) X10*3/uL [place] # (Auto) (0.1-1.2) X10*3/uL Eos # (Auto) (0.0-0.4) X10*3/uL Baso # (Auto) (0.0-0.2) X10*3/uL Abs Immat Gran (auto) (0.00-0.03) X10*3/uL Absolute Neuts (auto) (2.0-8.3) x10*3/uL Absolute Nucleated RBC (0.0-0.012) X10*3/uL Nucleated RBC % (auto) (0.0-0.2) /100WBC VBG pH 7.35 (7.32-7.43) VBG pCO2 68 mmHg VBG pO2 41 mmHg VBG HCO3 38 H (22-26) mmol/L VBG O2 Saturation 66.0 % VBG Base Excess 9.4 mmol/L Sodium (135-145) mmol/L Potassium (3.3-5.1) mmol/L Chloride (96-108) mmol/L Carbon Dioxide (22-29) mmol/L Anion Gap (12-20) BUN (9-16) mg/dL Creatinine (0.5-1.4) mg/dL Estim Creat Clear Calc Estimated GFR Random Glucose (60-115) mg/dL Lactic Acid 1.8 (0.5-2.0) mmol/L Calcium (8.4-10.2) mg/dL Magnesium (1.6-2.6) mg/dL Total Bilirubin (0.0-1.0) mg/dL Direct Bilirubin (0.0-0.5) mg/dL AST (5-31) U/L ALT (0-31) U/L Alkaline Phosphatase (39-117) U/L Total Protein (6.5-8.0) g/dL Albumin (3.5-5.0) g/dL Urine Color Urine Appearance Urine pH (5.0-8.0) Ur Specific [place] (1.005-1.025) Urine Protein (NEG-TRACE) MG/DL Urine Glucose (UA) (NEG) MG/DL Urine Ketones (NEG) MG/DL Urine Blood (NEG) Urine Nitrite (NEG) Ur Leukocyte Esterase (NEG) Urine RBC (0) /HPF Urine WBC (0-4) /HPF Ur Squamous Epith Cells /LPF Urine Bacteria /LPF Urine Opiates Screen (Not Detect) Urine Fentanyl Screen (Not Detect) Ur Barbiturates Screen (Not Detect) Ur Phencyclidine Scrn (Not Detect) Ur Amphetamines Screen (Not Detect) U Benzodiazepines Scrn (Not Detect) Urine Cocaine Screen (Not Detect) U Marijuana (THC) Screen (Not Detect) Acetone, Qual (Negative) COVID-19 (NUBIA) (Negative) COVID-19 Clin Com ECG Data Attestation: I personally reviewed and interpreted this ECG as follows: ECG interpretation date: 05/07/21 ECG interpretation time: 10:53 Interpretation: Rate: 97 Rhythm: NSR [place]: normal Normal P waves. Normal MERRITT. Normal QRS complex. ST T wave : normal no GETACHEW qTC: normal prior studies: no acute ischemia The study has been interpreted contemporaneously by me. . Critical Care Time Critical Care Time Critical Care Time: Yes Total Critical Care Time: 90 Attestation: repeat assessments, multiple doses of narcan, O2 supplementations, repeat nebs I attest to this time spent taking care of the patient Discharge Plan Discharge Clinical Impression: Hypoxia, Acute hyperglycemia, Acidosis, lactic Drug overdose Qualifiers: Encounter type: initial encounter Injury intent: accidental or unintentional Qualified Code(s): T50.901A - Poisoning by unspecified drugs, medicaments and biological substances, accidental (unintentional), initial encounter Asthma Qualifiers: Asthma severity: moderate Asthma persistence: persistent Asthma complication type: with acute exacerbation Qualified Code(s): J45.41 - Moderate persistent asthma with (acute) exacerbation Leukocytosis Qualifiers: Leukocytosis type: unspecified Qualified Code(s): D72.829 - Elevated white blood cell count, unspecified UTI (urinary tract infection) Qualifiers: Urinary tract infection type: acute cystitis Hematuria presence: without hematuria Qualified Code(s): N30.00 - Acute cystitis without hematuria Patient Disposition: Admitted As Inpatient
[2021-05-07 10:44] LABS: MANUAL DIFF FLAG NO
[2021-05-07 10:50] LABS: Basophils Percent Auto 0.1 % (0-2); Eosinophils Percent Auto 0.1 % (0-4); Hematocrit 41.4 % (37.0-47.0); Hemoglobin 13.2 g/dl (12.0-16.0); Imm Gran Pct Auto 0.6 % (0.0-0.4); Lymphocytes Absolute Auto 1.2 X10*3/uL (1.2-4.9); Lymphocytes Percent Auto 7.4 % (20-40); Mean Corpuscular HGB Conc 31.9 g/dl (31.0-35.0); Mean Corpuscular Hemoglobin 31.1 pg (27.0-33.0); Mean Corpuscular Volume 97.6 fL (80.0-98.0); Mean Platelet Volume 10.7 fL (9.4-12.3); Monocytes Absolute Auto 0.7 X10*3/uL (0.1-1.2); Monocytes Percent Auto 4.5 % (2-11); Neutrophils Absolute Auto 13.8 x10*3/uL (2.0-8.3); Neutrophils Percent Auto 87.3 % (45-73); Platelet Count 245 X10*3/uL (160-400); Red Blood Count 4.24 X10*6/uL (4.20-5.50); Red Cell Distribution Width 13.2 % (11.0-16.0); White Blood Count 15.8 X10*3/uL (4.8-10.8)
[2021-05-07] MEDS: methylPREDNISolone Sod Succ 125 MG/2 ML VIAL IVPUSH (10:54)
[2021-05-07] MEDS: ondansetron HCL 4 MG/2 ML VIAL IVPUSH ×2 (10:54→11:08)
[2021-05-07] MEDS: Naloxone HCl 0.4 MG/ML VIAL 0.2 MG IVPUSH ×2 (10:54→10:58)
[2021-05-07] MEDS: Insulin Regular, Human 100 UNIT/ML 3 ML VIAL 10 UNIT IVPUSH (10:57)
[2021-05-07 11:00] LABS: Lactic Acid 2.1 mmol/L (0.5-2.0)
[2021-05-07 11:01] LABS: COVID-19 Test Negative (Negative)
[2021-05-07] MEDS: 0.9 % Sodium Chloride 1,000 ML 999 ML IV (11:08)
[2021-05-07 11:18] LABS: Alanine Aminotransferase 95 U/L (0-31); Albumin Level 3.8 g/dL (3.5-5.0); Alkaline Phosphatase 106 U/L (39-117); Anion Gap 16 (12-20); Aspartate Amino Transferase 150 U/L (5-31); Bilirubin Direct 0.3 mg/dL (0.0-0.5); Bilirubin Total 0.5 mg/dL (0.0-1.0); Blood Urea Nitrogen 12 mg/dL (9-16); Calcium 8.9 mg/dL (8.4-10.2); Carbon Dioxide 31 mmol/L (22-29); Chloride 91 mmol/L (96-108); Creatinine Clr Calc Pharmacy 68.9; Estimated Glomerular Filt Rate > 60; Glucose Random 557 mg/dL (60-115); Magnesium 1.9 mg/dL (1.6-2.6); Potassium 5.1 mmol/L (3.3-5.1); Sodium 133 mmol/L (135-145); Total Protein 7.3 g/dL (6.5-8.0)
[2021-05-07] MEDS: Albuterol Sulfate (0.083%) 2.5 MG/3 ML VIAL.NEB INHALE (11:24)
[2021-05-07] MEDS: Albuterol/Iprat 2.5/0.5MG 3 ML AMPUL.NEB INHALE (11:24)
--- NOTE | 2021-05-07 11:25 | PC.NURSE ---
pt vomited large amt brown liquid.
[2021-05-07 11:27] LABS: Appearance Urine CLOUDY; Color Urine YELLOW; Glucose Urine UA >=1000 MG/DL (NEG); Leukocyte Esterase Urine NEG (NEG); Nitrite Urine POS (NEG); Specific Gravity - Urine 1.015 (1.005-1.025); UACC Culture Trigger YES; Urine Blood NEG (NEG); Urine Ketones 5 MG/DL (NEG); Urine Protein TRACE MG/DL (NEG-TRACE)
[2021-05-07 11:31] LABS: Acetone, serum QL Negative (Negative)
[2021-05-07] MEDS: Piperacillin Sodium/Tazobactam 3.375 GM in 0.9 % Sodium Chloride 50 ML IV (11:33)
[2021-05-07 11:41] LABS: Bacteria Urine 3+ /LPF; RBC Urine 0 /HPF (0); Squamous Epithelial Cell Urine 1+ /LPF; UACC CULT YES; WBC Urine 30-49 /HPF (0-4)
[2021-05-07 11:47] LABS: Amphetamine Screen Urine Not Detected (Not Detect); Barbiturates, Urine Not Detected (Not Detect); Benzodiazepines Screen Urine Not Detected (Not Detect); Cannabinoid Screen Urine Not Detected (Not Detect); Cocaine Screen Urine POSITIVE (Not Detect); Fentanyl, urine POSITIVE (Not Detect); Opiate Screen Urine Not Detected (Not Detect); Phencyclidine Screen Urine Not Detected (Not Detect)
[2021-05-07] MEDS: Naloxone HCl 0.4 MG/ML VIAL IVPUSH ×2 (12:22→13:05)
--- NOTE | 2021-05-07 12:23 | PC.NURSE ---
Addendum entered by Doreen Dumont RN 05/07/21 12:26: Pt is now arrousable to verbal commands. Original Note: Pt obtunded snoring and not arrousable to noxious stimuli. Bedside capnography reading 60. Given 0.4mg IV narcan per .
[2021-05-07 12:43] LABS: Reflex Lactate? Lactic Acid Added
[2021-05-07 12:48] LABS: Venous Blood Gas Refer to POC result
[2021-05-07 12:48] LABS: VBG Base Excess 9.4 mmol/L; VBG HCO3 38 mmol/L (22-26); VBG pCO2 68 mmHg; VBG pH 7.35 (7.32-7.43); VBG pO2 41 mmHg
[2021-05-07 12:56] LABS: Lactic Acid 1.8 mmol/L (0.5-2.0)
[2021-05-07 13:04] LABS: Glucose, Whole Blood 386 mg/dL (60-115)
--- NOTE | 2021-05-07 14:26 | PC.NURSE ---
pt remains somnolent. awakens to shaking. Reyna Maurer. notified of pt's status per her request.
--- NOTE | 2021-05-07 15:15 | P.HPCC_ITS ---
History of Present Illness Date of Service: 05/07/21 Attending physician on admission: Cat Griffin Chief Complaint: Found unresponsive/known polysubstance abuser 46-year-old female insulin-requiring type 2 diabetic with underlying history of asthma who snorts cocaine and heroin and was found unresponsive with toxicology positive for fentanyl and cocaine and and responds very briefly to repeated doses of now lock sewn and according to blood gas she has an acute on chronic hypercarbic respiratory failure due to hypoventilation but CT scan fails to show any evidence of aspiration which I do believe was present back on on an admission in September so I might going to continue antibiotics at this point I will just simply prophylax the asthma with long and short-acting bronchodilators as well as IV steroids and probably have to put her on a continuous Narcan drip and hopefully be able to preserve respiration while preventing an agitated withdrawal There is a question as to whether not she might be on Ativan as an outpatient so we have to watch carefully in relation to this but I would certainly before administering any would like to see her completely withdrawn from the fentanyl which in part will be dosed dependent but it is going to be at least several hours Review of Systems Review of Systems: Yes Unobtainable due to mental status PMFSH Past Medical History Medical History (Updated 05/07/21 @ 15:22 by Marina Marie MD) Asthma Diabetes Diabetic acetonemia Drug abuse in remission Hypercapnic respiratory failure, chronic Moderate obesity Pneumonia Pneumonia Post-tubal ligation syndrome Social History Social History Household Members: Spouse Housing: House Do you presently have visiting nurse or other home services: Yes (housekeeping department worker through [facility]) Cigarette Packs Per Day: 1.5 Cigarettes Per Day: 30.0 Years Smoked: 32 Substance Use Type: Heroin Advance Directives: No Advance Directives Information Provided: No service: No Current occupational status: unemployed Meds Allergies Allergy/AdvReac Type Severity Reaction Status Date / Time ibuprofen [IBUPROFEN] Allergy Unknown LIGHTHEADED;FEELS Verified 12/14/20 23:29 LIKE CHEST IS CLOSING IN;CLAUSTROPHOBIC Active Medications: Current Medications Albuterol/Ipratropium (Albuterol/Iprat 2.5/0.5mg 3 Ml Ampul.Neb) 3 ml INHALE RQ4H WHILE AWAKE SILKE Enoxaparin Sodium (Enoxaparin Sodium 40 Mg/0.4 Ml Syringe) 40 mg SUBCUT Q24H [facility] Sodium Chloride (Ns) 1,000 mls @ 75 mls/hr IVCONT .[id number] [facility] Naloxone HCl 5 mg/ Dextrose 105 mls @ 8.4 mls/hr IV .[id number] [facility] Naloxone HCl 5 mg/ Dextrose 105 mls @ 8.4 mls/hr IV .[id number] [facility] Methylprednisolone Sodium Succinate (Methylprednisolone Sod Succ 40 Mg/Ml Vial) 20 mg IVPUSH Q12H [facility] Pantoprazole Sodium (Pantoprazole Sodium 40 Mg/10 Ml Vial) 40 mg IVPUSH DAILY@0630 [facility] Home Medications Medication Instructions Recorded Confirmed Last Taken Type albuterol sulfate 90 mcg/actuation 2 puff INHALATION Q6H PRN 10/04/20 10/11/20 Unknown History aerosol inhaler aspirin 81 mg tablet,delayed 81 mg PO DAILY 10/04/20 10/11/20 10/03/20 History release fluticasone propionate 220 2 puff PO BID 10/04/20 10/11/20 10/03/20 History mcg/actuation HFA aerosol inhaler (Flovent HFA) insulin lispro 100 unit/mL 80 unit SUBCUT DAILY 10/04/20 10/11/20 10/04/20 History subcutaneous solution (Admelog U-100 Insulin lispro) ipratropium 0.5 mg-albuterol 3 mg 1 vial INHALATION Q6H PRN 10/04/20 10/11/20 Unknown History (2.5 mg base)/3 mL nebulization soln nystatin 100,000 unit/mL oral 5 ml PO QID 10/04/20 10/11/20 10/03/20 History suspension subcutaneous insulin pump 10/04/20 10/04/20 Unknown History sumatriptan succinate 50 mg tablet 50 mg PO DAILY PRN 10/04/20 10/11/20 Unknown History Physical Exam Vital Signs: Vital Signs: Last Vital Signs Temp 98.5 F 05/07/21 10:27 Pulse 96 05/07/21 14:25 Resp 19 05/07/21 14:25 BP 156/88 H 05/07/21 14:25 Pulse Ox 99 05/07/21 14:25 Body Mass Index 31.1 Barely arousable respiratory rate approximately 8 to 10 but on nasal cannula O2 with stable oxygen saturation EKG normal sinus rhythm completely within normal limits including measured intervals Chest x-ray and CT scan of the chest and CT scan of the head are all negative Cardiac exam with good bilateral carotid upstrokes and bedside echo showing normal LV and RV size and function and no primary valve or pericardial disease Skin intact Abdomen benign Results Labs CBC and Chem 7: 05/07/21 10:39 05/07/21 10:39 Labs: Laboratory Results - last 24 hr 05/07/21 05/07/21 05/07/21 10:39 10:39 10:39 MCV 97.6 MCH 31.1 MCHC 31.9 RDW 13.2 Plt Count 245 MPV 10.7 Immature Gran % (Auto) 0.6 H Neut % (Auto) 87.3 H Lymph % (Auto) 7.4 L Mccracken % (Auto) 4.5 Eos % (Auto) 0.1 Baso % (Auto) 0.1 Lymph # (Auto) 1.2 Mccracken # (Auto) 0.7 Eos # (Auto) 0.0 Baso # (Auto) 0.0 Abs Immat Gran (auto) 0.10 H Absolute Neuts (auto) 13.8 H Absolute Nucleated RBC 0.000 Nucleated RBC % (auto) 0.0 VBG pH VBG pCO2 VBG pO2 VBG HCO3 VBG O2 Saturation VBG Base Excess Anion Gap 16 Estim Creat Clear Calc 68.9 Estimated GFR > 60 POC Glucose Random Glucose 557 H* Lactic Acid Calcium 8.9 Magnesium 1.9 Total Bilirubin 0.5 Direct Bilirubin 0.3 AST 150 H ALT 95 H Alkaline Phosphatase 106 D Total Protein 7.3 Albumin 3.8 Urine Color Urine Appearance Urine pH Ur Specific [place] Urine Protein Urine Glucose (UA) Urine Ketones Urine Blood Urine Nitrite Ur Leukocyte Esterase Urine RBC Urine WBC Ur Squamous Epith Cells Urine Bacteria Urine Opiates Screen Urine Fentanyl Screen Ur Barbiturates Screen Ur Phencyclidine Scrn Ur Amphetamines Screen U Benzodiazepines Scrn Urine Cocaine Screen U Marijuana (THC) Screen Acetone, Qual Negative COVID-19 (NUBIA) Negative COVID-19 Clin Com See Note 05/07/21 05/07/21 05/07/21 10:39 11:18 11:18 MCV MCH MCHC RDW Plt Count MPV Immature Gran % (Auto) Neut % (Auto) Lymph % (Auto) Mccracken % (Auto) Eos % (Auto) Baso % (Auto) Lymph # (Auto) Mccracken # (Auto) Eos # (Auto) Baso # (Auto) Abs Immat Gran (auto) Absolute Neuts (auto) Absolute Nucleated RBC Nucleated RBC % (auto) VBG pH VBG pCO2 VBG pO2 VBG HCO3 VBG O2 Saturation VBG Base Excess Anion Gap Estim Creat Clear Calc Estimated GFR POC Glucose Random Glucose Lactic Acid 2.1 H* Calcium Magnesium Total Bilirubin Direct Bilirubin AST ALT Alkaline Phosphatase Total Protein Albumin Urine Color YELLOW Urine Appearance CLOUDY Urine pH 6.0 Ur Specific [place] 1.015 Urine Protein TRACE Urine Glucose (UA) >=1000 H Urine Ketones 5 Urine Blood NEG Urine Nitrite POS H Ur Leukocyte Esterase NEG Urine RBC 0 Urine WBC 30-49 H Ur Squamous Epith Cells 1+ Urine Bacteria 3+ Urine Opiates Screen Not Detected Urine Fentanyl Screen POSITIVE H Ur Barbiturates Screen Not Detected Ur Phencyclidine Scrn Not Detected Ur Amphetamines Screen Not Detected U Benzodiazepines Scrn Not Detected Urine Cocaine Screen POSITIVE H U Marijuana (THC) Screen Not Detected Acetone, Qual COVID-19 (NUBIA) COVID-19 Clin Com 05/07/21 05/07/21 05/07/21 12:40 12:41 13:00 MCV MCH MCHC RDW Plt Count MPV Immature Gran % (Auto) Neut % (Auto) Lymph % (Auto) M[place]rack[place] % (Auto) Eos % (Auto) Baso % (Auto) Lymph # (Auto) M[place]rack[place] # (Auto) Eos # (Auto) Baso # (Auto) Abs Immat Gran (auto) Absolute Neuts (auto) Absolute Nucleated RBC Nucleated RBC % (auto) VBG pH 7.35 VBG pCO2 68 VBG pO2 41 VBG HCO3 38 H VBG O2 Saturation 66.0 VBG Base Excess 9.4 Anion Gap Estim Creat Clear Calc Estimated GFR POC Glucose 386 H* Random Glucose Lactic Acid 1.8 Calcium Magnesium Total Bilirubin Direct Bilirubin AST ALT Alkaline Phosphatase Total Protein Albumin Urine Color Urine Appearance Urine pH Ur Specific [place] Urine Protein Urine Glucose (UA) Urine Ketones Urine Blood Urine Nitrite Ur Leukocyte Esterase Urine RBC Urine WBC Ur Squamous Epith Cells Urine Bacteria Urine Opiates Screen Urine Fentanyl Screen Ur Barbiturates Screen Ur Phencyclidine Scrn Ur Amphetamines Screen U Benzodiazepines Scrn Urine Cocaine Screen U Marijuana (THC) Screen Acetone, Qual COVID-19 (NUBIA) COVID-19 Clin Com Imaging Radiologist's Impressions: Impressions Chest X-Ray 05/07/21 10:19 IMPRESSION: No acute cardiopulmonary process. Interval resolution of bilateral infiltrates. Chest CT 05/07/21 13:03 IMPRESSION: Tree-in-bud opacities and ground glass opacities in the peripheral left lower lobe, which may represent an area of aspiration versus developing infectious infiltrate. Additional areas of groundglass opacity in the bilateral lung apices, may reflect infection or inflammation. Head CT 05/07/21 13:03 IMPRESSION: No acute intracranial pathology. Assessment and Plan (1) Drug overdose: Qualifiers: Encounter type: initial encounter Injury intent: accidental or unintentional Qualified Code(s): T50.901A - Poisoning by unspecified drugs, medicaments and biological substances, accidental (unintentional), initial encounter Status: Acute (2) Asthma: Qualifiers: Asthma complication type: with acute exacerbation Asthma persistence: persistent Asthma severity: moderate Qualified Code(s): J45.41 - Moderate persistent asthma with (acute) exacerbation Status: Acute (3) Leukocytosis: Qualifiers: Leukocytosis type: unspecified Qualified Code(s): D72.829 - Elevated white blood cell count, unspecified Status: Acute (4) Hypoxia: Status: Acute (5) Hypercapnic respiratory failure, chronic: Status: Acute (6) Acute hypercapnic respiratory failure: Status: Acute (7) Acute hyperglycemia: Status: Acute (8) Acidosis, lactic: Status: Acute (9) UTI (urinary tract infection): Qualifiers: Hematuria presence: without hematuria Urinary tract infection type: acute cystitis Qualified Code(s): N30.00 - Acute cystitis without hematuria Status: Acute (10) Moderate obesity: Status: Acute So it appears as though she has a fentanyl overdose I do not see any secondary organ involvement other than respiratory depression and will start her on a Narcan drip at least for the next several hours but it does appear that she has a urinary tract infection and I probably start her on Levaquin daily but I see no signs of pneumonia It appears from the blood gas that she has an acute on chronic picture of hypercarbic respiratory failure so there may be an underlying obstructive sleep apnea verses 8 and obesity hypoventilation issue because she does have at least moderate obesity However, the mildly elevated lactic acidosis am sure just reflects the respiratory failure there is no evidence here on focused examination of sepsis
--- NOTE | 2021-05-07 15:54 | MHC.CM.PN ---
pt lives c her s.o. in their home. she reports that she is independent in care. she is however also active c CHD. pt denies the need for vna . dc plan is home no svcs c continuation of CHD. cm to cont. to follow.
[2021-05-07] MEDS: Enoxaparin Sodium 40 MG/0.4 ML SYRINGE SUBCUT (16:28)
[2021-05-07] MEDS: 0.9 % Sodium Chloride 1,000 ML 75 ML IVCONT (16:28)
[2021-05-07 17:30] LABS: Glucose, Whole Blood 333 mg/dL (60-115)
[2021-05-07] MEDS: Insulin Lispro 100 UNIT/ML 3 ML VIAL SUBCUT ×2 (17:51→23:29)
[2021-05-07] MEDS: methylPREDNISolone Sod Succ 40 MG/ML VIAL 20 MG IVPUSH (21:31)
[2021-05-07] MEDS: levoFLOXacin/D5W 500 MG/100 ML PIGGYBACK 100 MG IV (21:32)
--- NOTE | 2021-05-07 21:41 | PC.NURSE ---
Pt A&Ox3- easily arousable to tactile stimuli, drowsy, calm/cooperative. Afebrile, NSR/ST 90-100s on tele, BP WNL. Pt refusing HFNC- titrated to 2L NC, SpO2 > 94. PA aware. Becoming more alert, narcan gtt titrated per emar. Tolerated ice chips. Voiding on bedpan. Telesitter in place for safety. Pt/ aware of plan of care.
[2021-05-07 23:33] LABS: Glucose, Whole Blood 296 mg/dL (60-115)
[2021-05-08] VITALS (29 sets, daily range): BP systolic 88–129; BP diastolic 43–75; PULSE 72–108; RESP 11–22; TEMP 36.5–36.9; O2SAT 92–100; BMI 31.8
[2021-05-08] MEDS: 0.9 % Sodium Chloride 1,000 ML 75 ML IVCONT (01:59)
[2021-05-08] MEDS: Albuterol/Iprat 2.5/0.5MG 3 ML AMPUL.NEB INHALE ×4 (04:46→23:48)
[2021-05-08] MEDS: Pantoprazole Sodium 40 MG/10 ML VIAL IVPUSH (05:32)
[2021-05-08 05:33] LABS: Glucose, Whole Blood 359 mg/dL (60-115)
[2021-05-08] MEDS: Insulin Lispro 100 UNIT/ML 3 ML VIAL SUBCUT (05:48)
--- NOTE | 2021-05-08 05:57 | PC.NURSE ---
Addendum entered by Trav Bean RN 05/08/21 06:41: AM CHEMISTRY LABS REVIEWED WITH DR MONTGOMERY (CO2/ANION GAP/GLUCOSE TRENDS)... WILL REVIEW Original Note: CARE ASSUMED 23;15...NARCAN DRIP 0.2 MG/HR...INITIALLY DROWSY BUT AROUSABLE TO VERBAL STIMULI AND COHERANT/CLEAR SPEECH...OVERNIGHT ALERT..ORIENTED X3..SPEECH CLEAR..CALM/CO-OPERATIVE...O2 2 L/M..RESPIRATIONS EASY...SAO2 95-96%...SOFT WHEEZES THIS AM...REQUESTED UPDRAFT WITH RELIEF...OOB TO COMMODE...VOIDING YELLOW URINE...AM POC GLUCOSE 359...PER ICU PA 15 UNITS LISPRO SC GIVEN...TAKING CLEAR LIQUIEDS W/O DIFFICULTY...NSR/S.TACH HR 96-104..NO ECTOPY
[2021-05-08 06:00] LABS: MANUAL DIFF FLAG NO
[2021-05-08 06:10] LABS: Basophils Percent Auto 0.1 % (0-2); Hematocrit 39.1 % (37.0-47.0); Hemoglobin 12.6 g/dl (12.0-16.0); Imm Gran Abs Auto 0.08 X10*3/uL (0.00-0.03); Imm Gran Pct Auto 0.5 % (0.0-0.4); Lymphocytes Absolute Auto 1.7 X10*3/uL (1.2-4.9); Lymphocytes Percent Auto 11.5 % (20-40); Mean Corpuscular HGB Conc 32.2 g/dl (31.0-35.0); Mean Corpuscular Hemoglobin 31.3 pg (27.0-33.0); Mean Corpuscular Volume 97.3 fL (80.0-98.0); Mean Platelet Volume 11.5 fL (9.4-12.3); Monocytes Absolute Auto 0.4 X10*3/uL (0.1-1.2); Monocytes Percent Auto 2.4 % (2-11); Neutrophils Absolute Auto 12.7 x10*3/uL (2.0-8.3); Neutrophils Percent Auto 85.5 % (45-73); Platelet Count 265 X10*3/uL (160-400); Red Blood Count 4.02 X10*6/uL (4.20-5.50); Red Cell Distribution Width 13.2 % (11.0-16.0); White Blood Count 14.8 X10*3/uL (4.8-10.8)
[2021-05-08 06:35] LABS: Alanine Aminotransferase 82 U/L (0-31); Albumin Level 3.5 g/dL (3.5-5.0); Alkaline Phosphatase 90 U/L (39-117); Anion Gap 25 (12-20); Aspartate Amino Transferase 97 U/L (5-31); Bilirubin Total 0.6 mg/dL (0.0-1.0); Blood Urea Nitrogen 18 mg/dL (9-16); Calcium 8.4 mg/dL (8.4-10.2); Carbon Dioxide 18 mmol/L (22-29); Chloride 96 mmol/L (96-108); Creatinine Clr Calc Pharmacy 80.5; Estimated Glomerular Filt Rate > 60; Glucose Random 401 mg/dL (60-115); Potassium 5.2 mmol/L (3.3-5.1); Sodium 134 mmol/L (135-145); Total Protein 6.7 g/dL (6.5-8.0)
--- NOTE | 2021-05-08 07:07 | MHC.CARE ---
Pt should be offered a SUDE assessment by the Recovery Team or CARE Team when medically appropriate.
[2021-05-08 07:27] LABS: Acetone, serum QL Negative (Negative)
[2021-05-08 07:28] LABS: Lactic Acid 1.3 mmol/L (0.5-2.0)
[2021-05-08] MEDS: methylPREDNISolone Sod Succ 40 MG/ML VIAL 20 MG IVPUSH (09:50)
[2021-05-08] MEDS: cefEPime HCl 1 GM in 0.9 % Sodium Chloride 50 ML IV ×2 (09:51→21:20)
[2021-05-08 09:59] LABS: Glucose, Whole Blood 237 mg/dL (60-115)
[2021-05-08] MEDS: Insulin Regular/NS 100 UNIT/100 ML PLAST..BAG IVCONT ×2 (10:00→21:16)
[2021-05-08 10:39] LABS: VBG HCO3 25 mmol/L (22-26); VBG pCO2 37 mmHg; VBG pH 7.44 (7.32-7.43); VBG pO2 67 mmHg
[2021-05-08 10:49] LABS: Acetone, serum QL Negative (Negative)
[2021-05-08 11:04] LABS: Glucose, Whole Blood 254 mg/dL (60-115)
[2021-05-08 11:08] LABS: Lactic Acid 0.9 mmol/L (0.5-2.0)
[2021-05-08 11:14] LABS: Venous Blood Gas Refer to POC result
[2021-05-08 12:19] LABS: Glucose, Whole Blood 249 mg/dL (60-115)
[2021-05-08 12:49] LABS: Color Urine YELLOW; Glucose Urine UA 500 MG/DL (NEG); Leukocyte Esterase Urine NEG (NEG); Nitrite Urine POS (NEG); Urine Blood NEG (NEG); Urine Ketones >=80 MG/DL (NEG); Urine Protein TRACE MG/DL (NEG-TRACE)
[2021-05-08 12:58] LABS: Appearance Urine HAZY
[2021-05-08 12:59] LABS: RBC Urine 0 /HPF (0); Squamous Epithelial Cell Urine 1+ /LPF
[2021-05-08 13:00] LABS: Bacteria Urine TRACE /LPF
[2021-05-08 13:47] LABS: Glucose, Whole Blood 432 mg/dL (60-115)
[2021-05-08 14:00] LABS: VBG Base Excess 0.1 mmol/L; VBG HCO3 24 mmol/L (22-26); VBG pCO2 39 mmHg; VBG pO2 69 mmHg
[2021-05-08] MEDS: Enoxaparin Sodium 40 MG/0.4 ML SYRINGE SUBCUT (14:18)
[2021-05-08] MEDS: clonazePAM 0.5 MG TABLET 0.25 MG PO ×2 (14:18→19:56)
[2021-05-08 14:25] LABS: Anion Gap 15 (12-20); Blood Urea Nitrogen 21 mg/dL (9-16); Calcium 7.8 mg/dL (8.4-10.2); Carbon Dioxide 24 mmol/L (22-29); Chloride 96 mmol/L (96-108); Estimated Glomerular Filt Rate > 60; Glucose Random 469 mg/dL (60-115); Potassium 4.9 mmol/L (3.3-5.1); Sodium 130 mmol/L (135-145)
--- NOTE | 2021-05-08 15:15 | PM.CCPN ---
Subjective Subjective Date of Service: 05/08/21 Interval History: 46-year-old female insulin-dependent diabetic who uses an insulin pump and is also a known polysubstance abuser and came in obtunded virtually unarousable received multiple doses of Narcan with very brief benefit was clearly either apneic or hypopneic with acute on chronic respiratory acidosis so the may be and an underlying untreated either obesity hypoventilation versus obstructive sleep apnea in the background and also has evidence of urinary tract infection but CT scan of the chest was clear so there was no evidence of aspiration Previous E coli growing from the urine apparently in sensitive to quinolones which I found out today She needed a Narcan drip which ran overnight and was gradually tapered no real signs of a significant withdrawal but it maintain her respiratory status between that and nasal high-flow she compensated beautifully woke up with good cognitive function but persistently hyperglycemic and then the guest services officer labs this time showed a now an ion gap of 25 with a drop serum bicarb mildly down to 18 with marked hyperglycemia and of course pseudo hyponatremia and she was treated with an insulin drip and by 2:00 p.m. complete resolution of anion gap and serum bicarb is restored to normal level but persistently hyperglycemic so I am continuing the IV insulin for now and I switched her over to cefepime and for urinary tract infection and she is eating a diabetic diet and doing well Critical Care Time (minutes): 45 Physical Exam Vital Signs: Vital Signs: Last Vital Signs Temp 98.0 F 05/08/21 14:00 Pulse 90 05/08/21 15:00 Resp 14 05/08/21 15:00 BP 115/60 05/08/21 15:00 Pulse Ox 95 05/08/21 15:00 Oxygen Flow Rate 35 05/07/21 14:57 Body Mass Index 31.8 Awake alert and nonfocal neurologically Cardiovascular with bedside echo with normal LV and RV function Chest clear Abdomen benign no organomegaly Skin intact Objective Data Labs CBC & Chem 7: 05/08/21 05:55 05/08/21 13:53 Labs: Laboratory Results - last 24 hr 05/07/21 05/07/21 05/08/21 17:27 23:24 05:24 WBC RBC Hgb Hct MCV MCH MCHC RDW Plt Count MPV Immature Gran % (Auto) Neut % (Auto) Lymph % (Auto) [place] % (Auto) Eos % (Auto) Baso % (Auto) Lymph # (Auto) [place] # (Auto) Eos # (Auto) Baso # (Auto) Abs Immat Gran (auto) Absolute Neuts (auto) Absolute Nucleated RBC Nucleated RBC % (auto) VBG pH VBG pCO2 VBG pO2 VBG HCO3 VBG O2 Saturation VBG Base Excess Sodium Potassium Chloride Carbon Dioxide Anion Gap BUN Creatinine Estim Creat Clear Calc Estimated GFR POC Glucose 333 H 296 H 359 H* Random Glucose Lactic Acid Calcium Total Bilirubin AST ALT Alkaline Phosphatase Total Protein Albumin Urine Color Urine Appearance Urine pH Ur Specific [place] Urine Protein Urine Glucose (UA) Urine Ketones Urine Blood Urine Nitrite Ur Leukocyte Esterase Urine RBC Urine WBC Ur Squamous Epith Cells Urine Bacteria Urine Yeast Acetone, Qual 05/08/21 05/08/21 05/08/21 05:55 05:55 06:58 WBC 14.8 H RBC 4.02 L Hgb 12.6 Hct 39.1 MCV 97.3 MCH 31.3 MCHC 32.2 RDW 13.2 Plt Count 265 MPV 11.5 Immature Gran % (Auto) 0.5 H Neut % (Auto) 85.5 H Lymph % (Auto) 11.5 L [place] % (Auto) 2.4 Eos % (Auto) 0.0 Baso % (Auto) 0.1 Lymph # (Auto) 1.7 [place] # (Auto) 0.4 Eos # (Auto) 0.0 Baso # (Auto) 0.0 Abs Immat Gran (auto) 0.08 H Absolute Neuts (auto) 12.7 H Absolute Nucleated RBC 0.000 Nucleated RBC % (auto) 0.0 VBG pH VBG pCO2 VBG pO2 VBG HCO3 VBG O2 Saturation VBG Base Excess Sodium 134 L Potassium 5.2 H Chloride 96 Carbon Dioxide 18 L Anion Gap 25 H BUN 18 H Creatinine 0.85 Estim Creat Clear Calc 80.5 Estimated GFR > 60 POC Glucose Random Glucose 401 H* Lactic Acid 1.3 Calcium 8.4 Total Bilirubin 0.6 AST 97 H ALT 82 H Alkaline Phosphatase 90 Total Protein 6.7 Albumin 3.5 Urine Color Urine Appearance Urine pH Ur Specific [place] Urine Protein Urine Glucose (UA) Urine Ketones Urine Blood Urine Nitrite Ur Leukocyte Esterase Urine RBC Urine WBC Ur Squamous Epith Cells Urine Bacteria Urine Yeast Acetone, Qual 05/08/21 05/08/21 05/08/21 06:58 09:55 10:32 WBC RBC Hgb Hct MCV MCH MCHC RDW Plt Count MPV Immature Gran % (Auto) Neut % (Auto) Lymph % (Auto) [place] % (Auto) Eos % (Auto) Baso % (Auto) Lymph # (Auto) [place] # (Auto) Eos # (Auto) Baso # (Auto) Abs Immat Gran (auto) Absolute Neuts (auto) Absolute Nucleated RBC Nucleated RBC % (auto) VBG pH VBG pCO2 VBG pO2 VBG HCO3 VBG O2 Saturation VBG Base Excess Sodium Potassium Chloride Carbon Dioxide Anion Gap BUN Creatinine Estim Creat Clear Calc Estimated GFR POC Glucose 237 H Random Glucose Lactic Acid 0.9 Calcium Total Bilirubin AST ALT Alkaline Phosphatase Total Protein Albumin Urine Color Urine Appearance Urine pH Ur Specific [place] Urine Protein Urine Glucose (UA) Urine Ketones Urine Blood Urine Nitrite Ur Leukocyte Esterase Urine RBC Urine WBC Ur Squamous Epith Cells Urine Bacteria Urine Yeast Acetone, Qual Negative 05/08/21 05/08/21 05/08/21 10:32 10:34 10:48 WBC RBC Hgb Hct MCV MCH MCHC RDW Plt Count MPV Immature Gran % (Auto) Neut % (Auto) Lymph % (Auto) [place] % (Auto) Eos % (Auto) Baso % (Auto) Lymph # (Auto) [place] # (Auto) Eos # (Auto) Baso # (Auto) Abs Immat Gran (auto) Absolute Neuts (auto) Absolute Nucleated RBC Nucleated RBC % (auto) VBG pH 7.44 H VBG pCO2 37 VBG pO2 67 VBG HCO3 25 VBG O2 Saturation 94.0 VBG Base Excess Sodium Potassium Chloride Carbon Dioxide Anion Gap BUN Creatinine Estim Creat Clear Calc Estimated GFR POC Glucose Random Glucose Lactic Acid Calcium Total Bilirubin AST ALT Alkaline Phosphatase Total Protein Albumin Urine Color YELLOW Urine Appearance HAZY Urine pH 6.0 Ur Specific [place] 1.020 Urine Protein TRACE Urine Glucose (UA) 500 H Urine Ketones >=80 Urine Blood NEG Urine Nitrite POS H Ur Leukocyte Esterase NEG Urine RBC 0 Urine WBC 15-29 H Ur Squamous Epith Cells 1+ Urine Bacteria TRACE Urine Yeast TRACE Acetone, Qual Negative 05/08/21 05/08/21 05/08/21 10:56 12:14 13:22 WBC RBC Hgb Hct MCV MCH MCHC RDW Plt Count MPV Immature Gran % (Auto) Neut % (Auto) Lymph % (Auto) [place] % (Auto) Eos % (Auto) Baso % (Auto) Lymph # (Auto) [place] # (Auto) Eos # (Auto) Baso # (Auto) Abs Immat Gran (auto) Absolute Neuts (auto) Absolute Nucleated RBC Nucleated RBC % (auto) VBG pH VBG pCO2 VBG pO2 VBG HCO3 VBG O2 Saturation VBG Base Excess Sodium Potassium Chloride Carbon Dioxide Anion Gap BUN Creatinine Estim Creat Clear Calc Estimated GFR POC Glucose 254 H 249 H 432 H* Random Glucose Lactic Acid Calcium Total Bilirubin AST ALT Alkaline Phosphatase Total Protein Albumin Urine Color Urine Appearance Urine pH Ur Specific [place] Urine Protein Urine Glucose (UA) Urine Ketones Urine Blood Urine Nitrite Ur Leukocyte Esterase Urine RBC Urine WBC Ur Squamous Epith Cells Urine Bacteria Urine Yeast Acetone, Qual 05/08/21 05/08/21 13:53 13:54 WBC RBC Hgb Hct MCV MCH MCHC RDW Plt Count MPV Immature Gran % (Auto) Neut % (Auto) Lymph % (Auto) [place] % (Auto) Eos % (Auto) Baso % (Auto) Lymph # (Auto) [place] # (Auto) Eos # (Auto) Baso # (Auto) Abs Immat Gran (auto) Absolute Neuts (auto) Absolute Nucleated RBC Nucleated RBC % (auto) VBG pH 7.40 VBG pCO2 39 VBG pO2 69 VBG HCO3 24 VBG O2 Saturation 93.0 VBG Base Excess 0.1 Sodium 130 L Potassium 4.9 Chloride 96 Carbon Dioxide 24 Anion Gap 15 BUN 21 H Creatinine 0.95 Estim Creat Clear Calc 72.0 Estimated GFR > 60 POC Glucose Random Glucose 469 H* Lactic Acid Calcium 7.8 L D Total Bilirubin AST ALT Alkaline Phosphatase Total Protein Albumin Urine Color Urine Appearance Urine pH Ur Specific [place] Urine Protein Urine Glucose (UA) Urine Ketones Urine Blood Urine Nitrite Ur Leukocyte Esterase Urine RBC Urine WBC Ur Squamous Epith Cells Urine Bacteria Urine Yeast Acetone, Qual Microbiology Microbiology Results: Microbiology 05/07/21 11:19 Blood - Venous Blood Culture - Preliminary No growth after 24 hours. 05/07/21 10:39 Blood - Venous Blood Culture - Preliminary No growth after 24 hours. 05/07/21 Unknown Urine clean catch - Urine sharma top Urine Culture - Preliminary Gram negative adam Quality Stroke Does the patient have a stroke diagnosis?: No VTE Prior VTE?: No VTE Risk Level:: Medical - moderate - high VTE Device Contraindication: N/A - Device Ordered VTE Drug Contraindication: N/A - Med Ordered Progress Note: A&P Assessment and plan (1) Moderate obesity: Status: Acute (2) Acute hypercapnic respiratory failure: Status: Acute (3) Hypercapnic respiratory failure, chronic: Status: Acute (4) Drug overdose: Status: Acute (5) Asthma: Status: Acute (6) Leukocytosis: Status: Acute (7) Hypoxia: Status: Acute (8) Acute hyperglycemia: Status: Acute (9) Acidosis, lactic: Status: Acute (10) UTI (urinary tract infection): Status: Acute (11) Multi-organ system dysfunction: Status: Acute (12) Elevated troponin: Status: Acute (13) Transaminitis: Status: Acute (14) Pneumonia: Status: Acute Assessment and Plan: I am going to continue IV insulin drip because of the refractory hyperglycemia and if that improves towards evening we can always switch over to subcutaneous coverage and long-acting Lantus and neck a should be able to go upstairs
[2021-05-08 15:21] LABS: Venous Blood Gas Refer to POC result
[2021-05-08 15:58] LABS: Glucose, Whole Blood 396 mg/dL (60-115)
[2021-05-08 16:05] LABS: Glucose, Whole Blood 333 mg/dL (60-115)
[2021-05-08 17:00] LABS: Glucose, Whole Blood 325 mg/dL (60-115)
[2021-05-08 18:04] LABS: Glucose, Whole Blood 297 mg/dL (60-115)
[2021-05-08 19:10] LABS: Glucose, Whole Blood 233 mg/dL (60-115)
[2021-05-08] MEDS: Insulin Glargine,Hum.rec.anlog 100 UNIT/ML 10 ML VIAL 10 UNIT SUBCUT (19:57)
[2021-05-08 20:34] LABS: Glucose, Whole Blood 107 mg/dL (60-115)
[2021-05-08 21:36] LABS: Glucose, Whole Blood 77 mg/dL (60-115)
[2021-05-08 22:40] LABS: Glucose, Whole Blood 112 mg/dL (60-115)
[2021-05-09] VITALS (30 sets, daily range): BP systolic 100–154; BP diastolic 38–78; PULSE 64–103; RESP 9–25; TEMP 36.4–37.1; O2SAT 90–99; BMI 31.8
[2021-05-09 00:28] LABS: Glucose, Whole Blood 213 mg/dL (60-115)
[2021-05-09 03:00] LABS: Glucose, Whole Blood 251 mg/dL (60-115)
[2021-05-09 04:32] LABS: Glucose, Whole Blood 194 mg/dL (60-115)
[2021-05-09] MEDS: Pantoprazole Sodium 40 MG/10 ML VIAL IVPUSH (05:18)
[2021-05-09] MEDS: Albuterol/Iprat 2.5/0.5MG 3 ML AMPUL.NEB INHALE ×5 (05:23→20:20)
[2021-05-09 05:49] LABS: MANUAL DIFF FLAG NO
[2021-05-09 05:54] LABS: Basophils Percent Auto 0.1 % (0-2); Hematocrit 34.4 % (37.0-47.0); Hemoglobin 11.2 g/dl (12.0-16.0); Imm Gran Abs Auto 0.05 X10*3/uL (0.00-0.03); Imm Gran Pct Auto 0.4 % (0.0-0.4); Lymphocytes Absolute Auto 2.6 X10*3/uL (1.2-4.9); Lymphocytes Percent Auto 17.9 % (20-40); Mean Corpuscular HGB Conc 32.6 g/dl (31.0-35.0); Mean Corpuscular Hemoglobin 31.2 pg (27.0-33.0); Mean Corpuscular Volume 95.8 fL (80.0-98.0); Monocytes Absolute Auto 0.6 X10*3/uL (0.1-1.2); Monocytes Percent Auto 4.4 % (2-11); Neutrophils Percent Auto 77.2 % (45-73); Platelet Count 233 X10*3/uL (160-400); Red Blood Count 3.59 X10*6/uL (4.20-5.50); Red Cell Distribution Width 13.4 % (11.0-16.0); White Blood Count 14.2 X10*3/uL (4.8-10.8)
[2021-05-09 06:14] LABS: Alanine Aminotransferase 68 U/L (0-31); Albumin Level 3.2 g/dL (3.5-5.0); Alkaline Phosphatase 73 U/L (39-117); Anion Gap 12 (12-20); Aspartate Amino Transferase 65 U/L (5-31); Bilirubin Total 0.5 mg/dL (0.0-1.0); Blood Urea Nitrogen 19 mg/dL (9-16); Calcium 8.6 mg/dL (8.4-10.2); Carbon Dioxide 28 mmol/L (22-29); Chloride 100 mmol/L (96-108); Creatinine Clr Calc Pharmacy 100.6; Estimated Glomerular Filt Rate > 60; Glucose Random 153 mg/dL (60-115); Potassium 3.7 mmol/L (3.3-5.1); Sodium 136 mmol/L (135-145)
[2021-05-09 07:04] LABS: Glucose, Whole Blood 118 mg/dL (60-115)
[2021-05-09 09:02] LABS: Glucose, Whole Blood 212 mg/dL (60-115)
[2021-05-09] MEDS: predniSONE 10 MG TABLET 30 MG PO (09:16)
[2021-05-09] MEDS: clonazePAM 0.5 MG TABLET 0.25 MG PO ×2 (09:16→20:59)
[2021-05-09] MEDS: cefEPime HCl 1 GM in 0.9 % Sodium Chloride 50 ML IV (09:17)
[2021-05-09] MEDS: Insulin Glargine,Hum.rec.anlog 100 UNIT/ML 10 ML VIAL 20 UNIT SUBCUT ×2 (10:13→21:08)
--- NOTE | 2021-05-09 10:58 | PC.NURSE ---
Pt is alert and oriented x3, agitated this AM. Claiming she wanted to leave AMA, she is aware of her UTI 2/2 e. coli and on ABX, and of her drug abuse leading her here, aware of her insulin drip. spoke to pt and pt agree's to stay the night. 20 units lantus given at 1013 and at 1030 insulin drip was stopped per MD. Will continue to monitor, bed locked and in lowest position, call nunes in reach. Pt did state that she was under the impression that she consumed heroin prior to admit. Utox positive for fentanyl and cocaine, aware.
[2021-05-09 11:54] LABS: Glucose, Whole Blood 307 mg/dL (60-115)
[2021-05-09] MEDS: Insulin Lispro 100 UNIT/ML 3 ML VIAL 15 UNIT SUBCUT (12:04)
--- NOTE | 2021-05-09 12:30 | MHC.CM.PN ---
Pt to be transferred to a medical floor today: Pt continues to support original d/c plan of a return to home with significant other and CHD supports. Pt to arrange transportation home.
[2021-05-09] MEDS: Enoxaparin Sodium 40 MG/0.4 ML SYRINGE SUBCUT (14:46)
[2021-05-09] MEDS: Nitrofurantoin Monohyd/M-Cryst 100 MG CAPSULE PO ×2 (14:46→21:06)
--- NOTE | 2021-05-09 14:46 | PM.CCPN ---
Subjective Subjective Date of Service: 05/09/21 Interval History: Mrs. Monroe was admitted to ICU on May 07 bec of obtundation 2? opiate OD, requiring a Narcan drip. The patient is a 46-year-old female with type 2 diabetic on an insulin pump, with underlying history of obesity, asthma, and polysubstance abuse (cocaine and heroin).? The patient tells me that she also wears oxygen at home at night, although she is unable to explain to me what the medical indication is for that.? She says that her baseline oxygen saturation is 95-96% on room air.? She does tell me that she snores at night.? She has never been sleep tested. ? ??The patient also tells me that she has a history of heart failure, with peripheral edema, and that is why she is on Lasix. ?On 10/04/2020, she had a transthoracic echo here which showed normal LV systolic function with grade 1 diastolic dysfunction.? She also had an enlarged RV with systolic dysfunction, and borderline elevated RVSP, consistent with cor pulmonale. ?? ?Her [employer] labs also show a chronic transaminitis.? This past September, she tested positive for hepatitis-C antibody.? The patient tells me that she knows about that and that her primary physician has her plugged in to get treatment. HISTORY OF PRESENT ILLNESS: ?The patient was brought into the ED SundayMay 07 after being found unresponsive.? She responded very briefly to repeated doses of Narcan. ?Her blood gas showed a respiratory acidosis. ?Tox was positive for fentanyl and cocaine. ?Chest x-ray and chest CT showed no infiltrates.? The patient was also found have a UTI. ?She did not require intubation.? She was admitted to the ICU and placed on a Narcan infusion.? She was also given Klonopin, antibiotics, and steroids for her asthma. She came off the Narcan drip yesterday.? Antibiotics were switched to cefepime when the ID and sensitivities came back.? She required an insulin drip though because of very high blood sugars. Today, she is fully awake and alert and appropriate (or at least as appropriate as she probably usually gets).? She told us she wants to leave the hospital today, even AMA, but I convinced her to stay at least one more day.? She is breathing easy with sat 94-95% on room air.? Heart rate is 80s, sinus rhythm.? Blood pressure is 120/61.? She has been afebrile this entire hospital stay.? There is no jugular venous distention with the head of the bed at 45 degrees. ?Chest is clear to auscultation. ?Heart rate and rhythm are regular, with normal-sounding S1 and S2, with no murmur or gallops.? The abdomen is benign.? She has no periph edema. LABORATORY DATA:? As below. IMPRESSION: 1. Uncontrolled diabetes.? The patient was on an insulin drip yesterday and this morning.? We started her on Lantus 20 units bid this morning.? We stopped the insulin drip at about 10am.? At noon time I gave her 15 units lispro SQ and she?s written for AC/HS. ??? I talked to her at some length about how she manages her insulin at home.? She has a SQ insulin pump that is filled with 3 cc of regular insulin, 100 units/cc.? Her usual rate is 0.8 units/hour, which equates to 19u/day.? She changes her pump cartridge every 3 days.? She tells me that she checks her POC every 2 hours, and if necessary, gives herself additional insulin SQ or changes the rate of the pump.? What she told me did not leave me convinced that is managing her glucose levels appropriately. 2. Multi-substance abuse.? Needs counseling.? Maybe this hospitalization will be a sentinel event for her. 3. Asthma.? Not active at present.? She can go back to using her inhalers qid.? She does not need any steroids at this time. 4. R/o sleep apnea.? Her facial and body habitus is suggestive. ?I think she should get tested. 5. Cor pulmonale and right heart failure.? Probably 2? obesity +/- ABBY.? I?ve restarted the Lasix that she?s on at home. 6. Chronic hepatitis C.? Scheduled to f/u w GI regarding treatment. 7. ID.? She has a UTI.? I?ve deescalated her Abx to nitrofurantoin. Stable for transfer to med surg.? I will sign out to the hospitalists. Time:? 15712 Critical Care Time (minutes): 0 Physical Exam Vital Signs: Vital Signs: Last Vital Signs Temp 98.7 F 05/09/21 12:00 Pulse 76 05/09/21 14:00 Resp 15 05/09/21 14:00 BP 135/63 05/09/21 14:00 Pulse Ox 94 05/09/21 14:00 Oxygen Flow Rate 35 05/07/21 14:57 Body Mass Index 31.8 Objective Data Labs CBC & Chem 7: 05/09/21 05:10 05/09/21 05:10 Labs: Laboratory Results - last 24 hr 05/08/21 05/08/21 05/08/21 10:34 15:04 16:02 WBC RBC Hgb Hct MCV MCH MCHC RDW Plt Count MPV Immature Gran % (Auto) Neut % (Auto) Lymph % (Auto) [place] % (Auto) Eos % (Auto) Baso % (Auto) Lymph # (Auto) [place] # (Auto) Eos # (Auto) Baso # (Auto) Abs Immat Gran (auto) Absolute Neuts (auto) Absolute Nucleated RBC Nucleated RBC % (auto) VBG Base Excess TNP Sodium Potassium Chloride Carbon Dioxide Anion Gap BUN Creatinine Estim Creat Clear Calc Estimated GFR POC Glucose 396 H* 333 H Random Glucose Calcium Total Bilirubin AST ALT Alkaline Phosphatase Total Protein Albumin 05/08/21 05/08/21 05/08/21 16:58 18:01 19:06 WBC RBC Hgb Hct MCV MCH MCHC RDW Plt Count MPV Immature Gran % (Auto) Neut % (Auto) Lymph % (Auto) [place] % (Auto) Eos % (Auto) Baso % (Auto) Lymph # (Auto) [place] # (Auto) Eos # (Auto) Baso # (Auto) Abs Immat Gran (auto) Absolute Neuts (auto) Absolute Nucleated RBC Nucleated RBC % (auto) VBG Base Excess Sodium Potassium Chloride Carbon Dioxide Anion Gap BUN Creatinine Estim Creat Clear Calc Estimated GFR POC Glucose 325 H 297 H 233 H Random Glucose Calcium Total Bilirubin AST ALT Alkaline Phosphatase Total Protein Albumin 05/08/21 05/08/21 05/08/21 20:30 21:32 22:37 WBC RBC Hgb Hct MCV MCH MCHC RDW Plt Count MPV Immature Gran % (Auto) Neut % (Auto) Lymph % (Auto) [place] % (Auto) Eos % (Auto) Baso % (Auto) Lymph # (Auto) [place] # (Auto) Eos # (Auto) Baso # (Auto) Abs Immat Gran (auto) Absolute Neuts (auto) Absolute Nucleated RBC Nucleated RBC % (auto) VBG Base Excess Sodium Potassium Chloride Carbon Dioxide Anion Gap BUN Creatinine Estim Creat Clear Calc Estimated GFR POC Glucose 107 77 112 Random Glucose Calcium Total Bilirubin AST ALT Alkaline Phosphatase Total Protein Albumin 05/09/21 05/09/21 05/09/21 00:23 02:55 04:28 WBC RBC Hgb Hct MCV MCH MCHC RDW Plt Count MPV Immature Gran % (Auto) Neut % (Auto) Lymph % (Auto) [place] % (Auto) Eos % (Auto) Baso % (Auto) Lymph # (Auto) [place] # (Auto) Eos # (Auto) Baso # (Auto) Abs Immat Gran (auto) Absolute Neuts (auto) Absolute Nucleated RBC Nucleated RBC % (auto) VBG Base Excess Sodium Potassium Chloride Carbon Dioxide Anion Gap BUN Creatinine Estim Creat Clear Calc Estimated GFR POC Glucose 213 H 251 H 194 H Random Glucose Calcium Total Bilirubin AST ALT Alkaline Phosphatase Total Protein Albumin 05/09/21 05/09/21 05/09/21 05:10 05:10 07:00 WBC 14.2 H RBC 3.59 L Hgb 11.2 L Hct 34.4 L MCV 95.8 MCH 31.2 MCHC 32.6 RDW 13.4 Plt Count 233 MPV 11.0 Immature Gran % (Auto) 0.4 Neut % (Auto) 77.2 H Lymph % (Auto) 17.9 L [place] % (Auto) 4.4 Eos % (Auto) 0.0 Baso % (Auto) 0.1 Lymph # (Auto) 2.6 [place] # (Auto) 0.6 Eos # (Auto) 0.0 Baso # (Auto) 0.0 Abs Immat Gran (auto) 0.05 H Absolute Neuts (auto) 11.0 H Absolute Nucleated RBC 0.000 Nucleated RBC % (auto) 0.0 VBG Base Excess Sodium 136 Potassium 3.7 D Chloride 100 Carbon Dioxide 28 Anion Gap 12 BUN 19 H Creatinine 0.68 Estim Creat Clear Calc 100.6 Estimated GFR > 60 POC Glucose 118 H Random Glucose 153 H D Calcium 8.6 D Total Bilirubin 0.5 AST 65 H ALT 68 H Alkaline Phosphatase 73 Total Protein 6.0 L Albumin 3.2 L 05/09/21 05/09/21 08:59 11:52 WBC RBC Hgb Hct MCV MCH MCHC RDW Plt Count MPV Immature Gran % (Auto) Neut % (Auto) Lymph % (Auto) [place] % (Auto) Eos % (Auto) Baso % (Auto) Lymph # (Auto) [place] # (Auto) Eos # (Auto) Baso # (Auto) Abs Immat Gran (auto) Absolute Neuts (auto) Absolute Nucleated RBC Nucleated RBC % (auto) VBG Base Excess Sodium Potassium Chloride Carbon Dioxide Anion Gap BUN Creatinine Estim Creat Clear Calc Estimated GFR POC Glucose 212 H 307 H Random Glucose Calcium Total Bilirubin AST ALT Alkaline Phosphatase Total Protein Albumin Microbiology Microbiology Results: Microbiology 05/07/21 11:19 Blood - Venous Blood Culture - Preliminary No growth after 48 hours. 05/07/21 10:39 Blood - Venous Blood Culture - Preliminary No growth after 48 hours. 05/07/21 Unknown Urine clean catch - Urine sharma top Urine Culture - Final Escherichia coli Quality Stroke Does the patient have a stroke diagnosis?: No VTE Prior VTE?: No VTE Risk Level:: Medical - moderate - high VTE Device Contraindication: N/A - Device Ordered VTE Drug Contraindication: N/A - Med Ordered
[2021-05-09 15:00] LABS: Glucose, Whole Blood 294 mg/dL (60-115)
[2021-05-09] MEDS: Insulin Lispro 100 UNIT/ML 3 ML VIAL 10 UNIT SUBCUT (15:10)
[2021-05-09 16:39] LABS: Glucose, Whole Blood 271 mg/dL (60-115)
[2021-05-09] MEDS: Insulin Lispro 100 UNIT/ML 3 ML VIAL SUBCUT ×2 (17:27→21:07)
[2021-05-09] MEDS: Fluticasone Propionate 250 MCG BLST.W.DEV 2 PUFF INHALE (20:25)
[2021-05-09 21:02] LABS: Glucose, Whole Blood 265 mg/dL (60-115)
[2021-05-10 04:00] VITALS: BP 158/72; PULSE 70; RESP 17; TEMP 36.4; O2SAT 95
[2021-05-10 05:34] VITALS: BMI 30.9
[2021-05-10 07:23] VITALS: BP 141/67; PULSE 76; RESP 18; TEMP 36.5; O2SAT 93
[2021-05-10 07:36] LABS: Glucose, Whole Blood 321 mg/dL (60-115)
[2021-05-10] MEDS: Fluticasone Propionate 250 MCG BLST.W.DEV 2 PUFF INHALE (07:56)
[2021-05-10 07:57] VITALS: PULSE 82; O2SAT 93
[2021-05-10] MEDS: clonazePAM 0.5 MG TABLET 0.25 MG PO (08:08)
[2021-05-10] MEDS: Furosemide 20 MG TABLET PO (08:09)
[2021-05-10] MEDS: Aspirin Enteric Coated 81 MG TABLET.DR PO (08:09)
[2021-05-10] MEDS: Insulin Lispro 100 UNIT/ML 3 ML VIAL SUBCUT ×3 (08:09→12:07)
[2021-05-10] MEDS: Nitrofurantoin Monohyd/M-Cryst 100 MG CAPSULE PO (08:09)
[2021-05-10] MEDS: Insulin Glargine,Hum.rec.anlog 100 UNIT/ML 10 ML VIAL 20 UNIT SUBCUT (08:10)
[2021-05-10 11:20] VITALS: BP 148/68; PULSE 77; RESP 18; TEMP 36.1; O2SAT 95
--- NOTE | 2021-05-10 11:29 | HO.SUDE ---
Met with pt in 370 after consult placed to Addiction Medicine. Pt reports [place] bag [place], [place], which resulted in overdose, [place] [facility] [place] Pt denies cocaine use, suspects it was in the heroin. Denies other substances, including alcohol. Pt reports this use was precipitated by partner, Erasto, being in pain and both chose to use heroin. Pt reports she and partner had not used in almost one year. Pt reports family hx TITUS. Pts first opiate use at age 35 when prescribed opiates for shoulder pain. Pt began using heroin when no longer able to obtain prescription. Maximum use was 1 bundle daily, IV. Pt has been to [facility] x 2, denies other T[facility]US residential tx. Pt had been on Suboxone in 2018 and methadone in 2020. Pt reports maximum methadone dose was 35 mg and had been in the program x 2 months. Pt interested in returning to an OTP, specifically [facility] in [place]. Pt declines referral or initiation while inpatient due to needing to set up PT1 for transportation. Pt states I will call for the PT1 tomorrow and get an appt next week. Pt educated regarding fentanyl and risk factors for overdose. Denies questions or concerns. Pt provided with many resources and recovery support information. Pt ordered to receive take home Narcan. Pt encouraged to contact t/w if assistance is needed or desire for further referrals. Danette Babb APRN, chalo as well as hopitalist.
--- NOTE | 2021-05-10 11:36 | PM.DS ---
DS: Providers Provider Date of Service: 05/10/21 Date of admission: 05/07/21 14:57 Primary care physician: Nilton Parikh MD Consults: 05/10/21 08:08 Addiction Medicine Routine Consulting Provider: Danette Babb Reason for consultation: POlysubstance abuse Has provider been notified: No DS: Diagnosis Discharge Diagnosis (1) Moderate obesity: Status: Acute (2) Acute hypercapnic respiratory failure: Status: Acute (3) Hypercapnic respiratory failure, chronic: Status: Acute (4) Drug overdose: Status: Acute (5) Asthma: Status: Acute (6) Leukocytosis: Status: Acute (7) Hypoxia: Status: Acute (8) Acute hyperglycemia: Status: Acute (9) Acidosis, lactic: Status: Acute (10) UTI (urinary tract infection): Status: Acute (11) Multi-organ system dysfunction: Status: Acute (12) Elevated troponin: Status: Acute (13) Transaminitis: Status: Acute (14) Pneumonia: Status: Acute DS: Summary Hospital Course Hospital Course: The patient was brought into the ED SundayMay 07 after being found unresponsive.? She responded very briefly to repeated doses of Narcan. ?Her blood gas showed a respiratory acidosis. ?Tox was positive for fentanyl and cocaine. ?Chest x-ray and chest CT showed no infiltrates.? The patient was also found have a UTI. ?She did not require intubation.? She was admitted to the ICU and placed on a Narcan infusion.? She was also given Klonopin, antibiotics, and steroids for her asthma. She came off the Narcan drip on 05/08.? Antibiotics were switched to nitrofurantoin when sensitivities came back.? She required an insulin drip though because of very high blood sugars, no DKA. Her hypoglycemia has now resolved. Patient was taken off her insulin drip and was placed on low-dose sliding scale insulin. Today, she is fully awake and alert and appropriate. She is breathing easy with sat 94-95% on room air.? Heart rate is 80s, sinus rhythm.? Blood pressure is 120/61.? She has been afebrile this entire hospital stay.? There is no jugular venous distention with the head of the bed at 45 degrees. ?Chest is clear to auscultation. ?Heart rate and rhythm are regular, with normal-sounding S1 and S2, with no murmur or gallops.? The abdomen is benign.? She has no periph edema. Patient was evaluated by Addiction Medicine, will be following up outpatient for methadone clinic. He is not appropriate to start methadone inpatient. In regards to hyperglycemia,reports that her glucose usually runs less than 200 when she is on her insulin pump. 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 to adjust her insulin if required and patient is agreeable In regards to her UTI, continue nitrofurantoin 5 days She has no acute complaints in the thumb and will be discharged home Time Spent with Patient Time attestation: Total time spent providing and/or coordinating discharge services: Discharge coordination time: Greater than 30 minutes Quality: Stroke Does the patient have a stroke diagnosis?: No Physical Exam Vital Signs: Vital Signs: Last Vital Signs Temp 97.0 F 05/10/21 11:20 Pulse 77 05/10/21 11:20 Resp 18 05/10/21 11:20 BP 148/68 H 05/10/21 11:20 Pulse Ox 95 05/10/21 11:20 Oxygen Flow Rate 35 05/07/21 14:57 Body Mass Index 30.9 Const: General: cooperative and no acute distress Orientation/consciousness: patient oriented x3 Eyes: General: appearance normal, both eyes and all related structures Resp: Effort & Inspection: normal respiratory effort Auscultation: clear to auscultation bilaterally Cardio: Rate: regular rate Rhythm: regular rhythm GI: Palpation (GI): Soft to palpation Auscultation: normal bowel sounds Skin: General skin exam: no rashes or lesions noted Neuro: General: patient oriented x3 Extrem: General: Yes normal to inspection and Yes no pedal edema DS: Data Data Completed and Pending Labs on day of discharge: Laboratory Results - last 24 hr 05/09/21 05/09/21 05/09/21 11:52 14:55 16:34 POC Glucose 307 H 294 H 271 H 05/09/21 05/10/21 20:58 07:21 POC Glucose 265 H 321 H Preliminary micro results at discharge 05/07/21 11:19 Blood Culture - Preliminary Blood - Venous No growth after 48 hours. 05/07/21 10:39 Blood Culture - Preliminary Blood - Venous No growth after 48 hours. Discharge Plan Discharge Patient Disposition: Home, Self-Care Discharge Diagnosis: Drug overdose, UTI, Referrals: Nilton Parikh MD [Primary Care Provider] - 1 Week Discharge Medications: New nitrofurantoin macrocrystal 100 mg capsule 100 mg PO BID 5 Days Qty: 10 RF: 0 Continued ipratropium-albuterol 0.5 mg-3 mg(2.5 mg base)/3 mL solution for nebulization 1 vial inhalation Q6H PRN (Reason: wheezing) RF: 0 Flovent HFA 220 mcg/actuation HFA aerosol inhaler 2 puff PO BID RF: 0 albuterol sulfate 90 mcg/actuation HFA aerosol inhaler 2 puff inhalation Q6H PRN (Reason: wheezing) RF: 0 sumatriptan succinate 50 mg Tablet 50 mg PO DAILY PRN (Reason: Headache) RF: 0 aspirin 81 mg Tablet,Delayed Release (Dr/Ec) 81 mg PO DAILY RF: 0 insulin lispro [Admelog U-100 Insulin lispro] 100 unit/mL Solution 80 unit SUBCUT DAILY RF: 0 (DME) subcutaneous insulin pump Misc MISCELLANEOUS RF: 0 furosemide [Lasix] 20 mg tablet 20 mg PO DAILY Qty: 20 RF: 0 lorazepam [Ativan] 1 mg tablet 1 mg PO BID PRN (Reason: anxiety) Qty: 14 RF: 0 loperamide 2 mg capsule 2 mg PO Q6H PRN (Reason: loose stool) Qty: 14 RF: 0 Discharge Orders: Discharge Order (Routine); Ordered 05/10/21 Ordered By: Park Martinez Diet: advance to usual diet Activity on Discharge: As tolerated Stand Alone Forms: Patient Portal Discharge page Care Plan Goals: Treatment of drug overdose, follow up op with methadone clinic Treatment of UTI Health Concerns: Drug overdose Plan of Treatment: Continue antibiotics for treatment of UTI Follow up with op methadone clinic avoid drug overdose Assessment: see above
[2021-05-10 11:42] LABS: Glucose, Whole Blood 294 mg/dL (60-115)
[2021-05-10 12:02] LABS: Alanine Aminotransferase 63 U/L (0-31); Albumin Level 3.8 g/dL (3.5-5.0); Alkaline Phosphatase 83 U/L (39-117); Anion Gap 12 (12-20); Aspartate Amino Transferase 39 U/L (5-31); Bilirubin Total 0.5 mg/dL (0.0-1.0); Blood Urea Nitrogen 13 mg/dL (9-16); Calcium 9.1 mg/dL (8.4-10.2); Carbon Dioxide 32 mmol/L (22-29); Chloride 95 mmol/L (96-108); Creatinine Clr Calc Pharmacy 86.3; Estimated Glomerular Filt Rate > 60; Glucose Random 301 mg/dL (60-115); Potassium 3.7 mmol/L (3.3-5.1); Sodium 135 mmol/L (135-145)
--- NOTE | 2021-05-10 12:22 | MHC.CM.PN ---
PT DISCHARGING HOME SELF-CARE, C SHUTTLE FOR TRANSPORT. PT SEEN BY RECOVERY SUPPORT NURSE PRIOR TO D/C AND IS OKAY TO D/C.
== END 2021-05-10 12:54 | disposition home or self-care (01) | DRG 812 ==
LOC: HO.ED 12:38 → HO.EDOVER 15:06 → HO.ICU 15:39 → HO.S3 05-09 18:38
PROVIDERS: Internal Medicine; Physician Assistant Medical; Admitting Provider Internal Medicine Cardiovascular Disease; Emergency Provider Emergency Medicine; PCP Family Medicine; Visit Provider Internal Medicine
DX: T40.411A Poisoning by fentanyl or fentanyl analogs, accidental (unintentional), initial encounter (principal); J96.01 Acute respiratory failure with hypoxia; J18.9 Pneumonia, unspecified organism; J96.02 Acute respiratory failure with hypercapnia; E87.2 Acidosis; I27.81 Cor pulmonale (chronic); E11.65 Type 2 diabetes mellitus with hyperglycemia; I50.810 Right heart failure, unspecified; J45.41 Moderate persistent asthma with (acute) exacerbation; T40.5X1A Poisoning by cocaine, accidental (unintentional), initial encounter; F11.20 Opioid dependence, uncomplicated; F17.210 Nicotine dependence, cigarettes, uncomplicated; D72.829 Elevated white blood cell count, unspecified; N39.0 Urinary tract infection, site not specified; E66.8 Other obesity; B96.20 Unspecified Escherichia coli [E. coli] as the cause of diseases classified elsewhere; Z68.30 Body mass index [BMI] 30.0-30.9, adult; G47.33 Obstructive sleep apnea (adult) (pediatric); F19.10 Other psychoactive substance abuse, uncomplicated; Z20.822 Contact with and (suspected) exposure to COVID-19; Z71.6 Tobacco abuse counseling; Z91.14 Patient's other noncompliance with medication regimen; Z96.41 Presence of insulin pump (external) (internal); Z79.4 Long term (current) use of insulin; Z79.82 Long term (current) use of aspirin; Z79.899 Other long term (current) drug therapy
CPT/HCPCS: 36415; 70450; 71045; 71250; 80048; 80053; 80076; 80307; 81001; 82009; 82803; 82947; 83605; 83735; 85025; 87040; 87086; 87088; 87186; 87635; 93005; 94640; 96361; 96374; 96375; 96376; 99285; 99291; 99292; J0692; J1650; J1956; J2405; J2543; J2920; J2930

== ENCOUNTER 2021-06-06 15:43 | Inpatient (IN) | payer OTHER, SELFPAY ==
--- NOTE | ~2021-06-06 | XR_ITS ---
EXAMINATION: XR CHEST CLINICAL INFORMATION: Right-sided Rales, rhonchi and wheezing.. COMPARISON: Chest x-ray 05/09/2021 TECHNIQUE: 2 views of the chest were obtained. FINDINGS: There is diffuse bilateral parahilar patchy opacity involving both upper, middle and lower lobes consistent with diffuse infiltrates. No pleural effusion seen. The heart size and pulmonary vascularity is normal. XR/XR chest 2V IMPRESSION: Diffuse parahilar bilateral lung infiltrates. Differential diagnosis includes pulmonary edema.
--- NOTE | ~2021-06-06 | CT_ITS ---
EXAMINATION: CT CHEST WITHOUT CONTRAST CLINICAL INFORMATION: Atypical infiltrates and elevated white count with hypoxemia COMPARISON: CT chest 05/07/2021 and 10/04/2020 TECHNIQUE: Multidetector volumetric CT imaging of the chest was done. Axial MIP volume rendering provided. Sagittal and coronal reformatted images were obtained. This CT examination was performed using dose optimization techniques as appropriate, variously including the following: *Automated exposure control *Adjustment of mA and/or kV according to patient size (this includes techniques or standardized protocols for targeted exams where dose is matched to indication/reason for exam; i.e. extremities or head) *Use of iterative reconstruction technique DLP: 26 mGy-cm FINDINGS: LUNGS: Again seen are scattered cystic spaces throughout the lungs. Diffuse groundglass infiltrates are present similar, although slightly worse, to those noted on the 10/04/2020 CT scan. They are in a crazy paving distribution. On the more recent CT scan one month ago from 05/07/2021, these infiltrates have significantly cleared, but has now returned. No curly B lines are present. No suspicious lung masses are seen. MEDIASTINUM: Heart size within normal limits. Coronary calcifications are seen. Interestingly, mediastinal adenopathy was present on the 10/04/2020 study but had fluid at the time of the 12/20/2020 study. However, the mediastinal nodes have now recurred. The largest node is a pretracheal node measuring 2.3 x 1.7 by 3.2 cm (5:141). Pre-aortic lymph nodes are present as well. PLEURA: There is no pleural effusion. No pleural mass or thickening. AXILLA: No lymphadenopathy. UPPER ABDOMEN: Unremarkable. OSSEOUS STRUCTURES: Unremarkable. CT/CT chest wo con IMPRESSION: Transitory recurrent groundglass crazy paving type infiltrates with some underlying cystic change along with recurring mediastinal lymphadenopathy. Differential diagnosis would include Covid, pulmonary alveolar proteinosis, the cephalic pneumonia, and hypersensitivity pneumonitis among other etiologies. Recurrent pulmonary edema would be another possibility although I would expect to see it least some pleural effusion present which is not the case. Pulmonary medicine consultation is recommended. Fleischner guidelines were followed.
[2021-06-06 15:59] VITALS: BP 130/68; BP 138/72; PULSE 119; PULSE 124; TEMP 37.2; O2SAT 88; O2SAT 96; BMI 33.7
--- NOTE | 2021-06-06 16:02 | ED_ITS ---
HPI - SOB/Dyspnea General Chief Complaint: Dyspnea Stated Complaint: sob Time Seen by Provider: 06/06/21 16:02 Source: patient Mode of arrival: ambulatory Limitations: no limitations History of Present Illness HPI Narrative: Patient with a history of pneumonia O2 dependent, now with increased shortness of breath. MD elicited complaint: shortness of breath Pertinent past history: pneumonia Onset (ago): hour(s) Context: recent illness Timing: constant Severity: moderate Exacerbating factors: exertion and coughing Known history of: congestive heart failure Associated symptoms: cough and sputum production Treatment prior to arrival: oxygen Related Data Home Medications Medication Instructions Recorded Confirmed albuterol sulfate 90 mcg/actuation 2 puff INHALATION Q6H PRN 10/04/20 06/06/21 aerosol inhaler aspirin 81 mg tablet,delayed 81 mg PO DAILY 10/04/20 06/06/21 release fluticasone propionate 220 2 puff PO BID 10/04/20 06/06/21 mcg/actuation HFA aerosol inhaler (Flovent HFA) ipratropium 0.5 mg-albuterol 3 mg 1 vial INHALATION Q6H PRN 10/04/20 06/06/21 (2.5 mg base)/3 mL nebulization soln subcutaneous insulin pump 10/04/20 05/07/21 sumatriptan succinate 50 mg tablet 50 mg PO DAILY MRX1 PRN MDD 2 10/04/20 06/06/21 TABLETS cetirizine 10 mg tablet 1 tab PO BID 06/06/21 06/06/21 famotidine 20 mg tablet (Pepcid) 20 mg PO DAILY 06/06/21 06/06/21 insulin lispro 100 unit/mL See Rx Instructions .ROUTE .COMPLEX 06/06/21 06/06/21 subcutaneous solution (Humalog U-100 Insulin) Previous Rx's Medication Instructions Recorded lorazepam 1 mg tablet (Ativan) 1 mg PO BID PRN #14 tab 12/15/20 Allergies Allergy/AdvReac Type Severity Reaction Status Date / Time ibuprofen [IBUPROFEN] Allergy Unknown LIGHTHEADED;FEELS Verified 12/14/20 23:29 LIKE CHEST IS CLOSING IN;CLAUSTROPHOBIC Review of Systems Constitutional: Constitutional: Reports no additional constitutional complaints Eyes: Eyes: Reports no additional eye complaints ENT: Denies dizziness Cardiovascular: Cardiovascular: Reports no additional cardiovascular complai nts Respiratory: Respiratory: Reports as per HPI Gastrointestinal: Gastrointestinal: Reports no additional gastrointestinal complaints Genitourinary: Genitourinary: Reports no additional female genitourinary complaints Musculoskeletal: Musculoskeletal: Reports no additional musculoskeletal complaints Integumentary/Breasts: Skin/Breast: Denies rash Neurologic: Reports system reviewed and no additional complaints, except as documented, Denies dizziness and Denies Sensory deficit (Neuro) Psychiatric: Psychiatric: Denies anxiety [facility] Past Medical History Medical History (Updated 06/06/21 @ 19:32 by Lang Barr MD) Asthma Asthma Diabetes Diabetic acetonemia Drug abuse in remission Drug overdose Hypercapnic respiratory failure, chronic Moderate obesity Pneumonia Pneumonia Post-tubal ligation syndrome Transaminitis Social History Social History Household Members: Significant Other Household Members Other:: 1 Housing: House Do you presently have visiting nurse or other home services: No Patient Tobacco Use Status: Current everyday Tobacco user Tobacco use type: Cigarette Cigarette Packs Per Day: 1 Cigarettes Per Day: 20.0 Years Smoked: 20 e-Cigarette/Vaping Use: Never Used Second Hand Smoke Exposure: Yes Substance Use Type: Heroin Advance Directives: No Advance Directives Information Provided: No service: No Current occupational status: unemployed Physical Exam Vital Signs: Vital Signs: Last Vital Signs Temp 98.9 F 06/06/21 15:59 Pulse 104 H 06/06/21 20:11 Resp 15 06/06/21 20:11 BP 120/54 L 06/06/21 20:11 Pulse Ox 95 06/06/21 20:11 Oxygen Flow Rate 2 06/06/21 15:59 BMI result Body Mass Index 33.7 Const: Other: short of breath, coughing Nutritional Appearance: average body habitus Orientation/consciousness: oriented to person and patient oriented x3 Limitations: no limitations HENMT: Head: Yes normal to inspection Ears: external ears normal General nose exam: Normal external nose present Mouth: Normal oral and palatal mucosa present and oropharynx normal Throat: Yes posterior oropharynx normal Eyes: General: appearance normal, both eyes and all related structures Neck: Other: supple Neck: Yes normal visual inspection Chest: Chest palpation & inspection: normal inspection of the chest Resp: Other: right sided rales and rhonchi and wheezing, left side with minimal fine crackles Cardio: Jugular venous distension: no JVD Rate: regular rate Rhythm: regular rhythm Heart sounds: S1 normal heart sound present and S2 normal heart sound present GI: Inspection: Yes normal to inspection Palpation (GI): Soft to palpation, nontender and No hepatosplenomegaly present Auscultation: normal bowel sounds : General: Yes no CVA tenderness Back/Spine/Pelvis: Back: no CVA tenderness Skin: General skin exam: no rashes or lesions noted Neuro: General: oriented to person and patient oriented x3 Cranial nerves: Yes CN's II-XII intact bilaterally Motor exam (neuro): 5/5 motor strength present throughout Sensory Exam: No Sensory deficit (Neuro) Extrem: Other: no edema General: Yes normal to inspection Psych: Appearance: grossly normal Course Reevaluation(s) Reevaluation #1: With elevated WBC, tachycardia, increased oxygen demand, and multifocal pneumonia on CT will admti. Patient is COVID negative Time: 19:34 Reevaluation #2: I spent 40 minutes of critical care, with interventions, assessments, speaking to patient, consultants, and family. MDM - SOB/Dyspnea Lab Data Result diagrams: 06/06/21 16:40 06/06/21 16:40 Labs: Lab Results 06/06/21 06/06/21 06/06/21 Range/Units 16:40 16:40 16:40 WBC 16.6 H (4.8-10.8) X10*3/uL RBC 4.09 L (4.20-5.50) X10*6/uL Hgb 12.2 (12.0-16.0) g/dl Hct 37.6 (37.0-47.0) % MCV 91.9 (80.0-98.0) fL MCH 29.8 (27.0-33.0) pg MCHC 32.4 (31.0-35.0) g/dl RDW 13.5 (11.0-16.0) % Plt Count 279 (160-400) X10*3/uL MPV 11.2 (9.4-12.3) fL Immature Gran % (Auto) 0.5 H (0.0-0.4) % Neut % (Auto) 78.0 H (45-73) % Lymph % (Auto) 11.2 L (20-40) % [place] % (Auto) 10.1 (2-11) % Eos % (Auto) 0.1 (0-4) % Baso % (Auto) 0.1 (0-2) % Lymph # (Auto) 1.9 (1.2-4.9) X10*3/uL [place] # (Auto) 1.7 H (0.1-1.2) X10*3/uL Eos # (Auto) 0.0 (0.0-0.4) X10*3/uL Baso # (Auto) 0.0 (0.0-0.2) X10*3/uL Abs Immat Gran (auto) 0.09 H (0.00-0.03) X10*3/uL Absolute Neuts (auto) 12.9 H (2.0-8.3) x10*3/uL Absolute Nucleated RBC 0.000 (0.0-0.012) X10*3/uL Nucleated RBC % (auto) 0.0 (0.0-0.2) /100WBC Smear Tech's Comments VERIFIED Sodium 135 (135-145) mmol/L Potassium 4.1 (3.3-5.1) mmol/L Chloride 95 L (96-108) mmol/L Carbon Dioxide 32 H (22-29) mmol/L Anion Gap 12 (12-20) BUN 10 (9-16) mg/dL Creatinine 0.64 (0.5-1.4) mg/dL Estim Creat Clear Calc 97.4 Estimated GFR > 60 Random Glucose 247 H (60-115) mg/dL Lactic Acid (0.5-2.0) mmol/L Calcium 8.3 L D (8.4-10.2) mg/dL Troponin I High Sens (<3.5-17.0) ng/L B-Natriuretic Peptide (<100) pg/mL Influenza Type A (PCR) NEGATIVE (Negative) Influenza Type B (PCR) NEGATIVE (Negative) RSV RNA Qual (PCR) NEGATIVE (Negative) SARS-CoV-2 RNA (RT-PCR) NEGATIVE (Negative) 06/06/21 06/06/21 Range/Units 16:40 18:43 WBC (4.8-10.8) X10*3/uL RBC (4.20-5.50) X10*6/uL Hgb (12.0-16.0) g/dl Hct (37.0-47.0) % MCV (80.0-98.0) fL MCH (27.0-33.0) pg MCHC (31.0-35.0) g/dl RDW (11.0-16.0) % Plt Count (160-400) X10*3/uL MPV (9.4-12.3) fL Immature Gran % (Auto) (0.0-0.4) % Neut % (Auto) (45-73) % Lymph % (Auto) (20-40) % [place] % (Auto) (2-11) % Eos % (Auto) (0-4) % Baso % (Auto) (0-2) % Lymph # (Auto) (1.2-4.9) X10*3/uL [place] # (Auto) (0.1-1.2) X10*3/uL Eos # (Auto) (0.0-0.4) X10*3/uL Baso # (Auto) (0.0-0.2) X10*3/uL Abs Immat Gran (auto) (0.00-0.03) X10*3/uL Absolute Neuts (auto) (2.0-8.3) x10*3/uL Absolute Nucleated RBC (0.0-0.012) X10*3/uL Nucleated RBC % (auto) (0.0-0.2) /100WBC Smear Tech's Comments Sodium (135-145) mmol/L Potassium (3.3-5.1) mmol/L Chloride (96-108) mmol/L Carbon Dioxide (22-29) mmol/L Anion Gap (12-20) BUN (9-16) mg/dL Creatinine (0.5-1.4) mg/dL Estim Creat Clear Calc Estimated GFR Random Glucose (60-115) mg/dL Lactic Acid 1.0 (0.5-2.0) mmol/L Calcium (8.4-10.2) mg/dL Troponin I High Sens 4.6 (<3.5-17.0) ng/L B-Natriuretic Peptide 191 H (<100) pg/mL Influenza Type A (PCR) (Negative) Influenza Type B (PCR) (Negative) RSV RNA Qual (PCR) (Negative) SARS-CoV-2 RNA (RT-PCR) (Negative) Imaging Data Chest x-ray: Radiologist's impression: multifocal ground glass opacifications CT scan - chest: Radiologist's impression: IMPRESSION: Transitory recurrent groundglass crazy paving type infiltrates with some underlying cystic change along with recurring mediastinal lymphadenopathy. Differential diagnosis would include Covid, pulmonary alveolar proteinosis, the cephalic pneumonia, and hypersensitivity pneumonitis among other etiologies. Recurrent pulmonary edema would be another possibility although I would expect to see it least some pleural effusion present which is not the case. Pulmonary medicine consultation is recommended. ? Fleischner guidelines were followed ECG Data Attestation: I personally reviewed and interpreted this ECG as follows: Interpretation: sinus tachycardia rate of 115, no st or twave changes Discharge Plan Discharge Clinical Impression: Hypoxia Community acquired pneumonia Qualifiers: Laterality: unspecified laterality Qualified Code(s): J18.9 - Pneumonia, un specified organism Patient Disposition: Admitted As Inpatient
--- NOTE | 2021-06-06 16:08 | ECG_ITS ---
Test Reason : Shortness of Breath Blood Pressure : / mmHG Vent. Rate : 117 BPM Atrial Rate : 117 BPM P-R Int : 138 ms QRS Dur : 082 ms QT Int : 304 ms P-R-T Axes : 042 002 058 degrees QTc Int : 424 ms Sinus tachycardia Possible Left atrial enlargement Possible Inferior infarct , age undetermined Abnormal ECG When compared with ECG of 07-MAY-2021 10:46, No significant change was found Referred By: Lang Barr Electronically Signed By:Gama Hurst
[2021-06-06] MEDS: Albuterol Sulfate 90 MCG 8 GM INHALER 4 PUFF INHALE (16:17)
[2021-06-06 16:18] VITALS: PULSE 116; O2SAT 93
[2021-06-06 16:52] LABS: Basophils Percent Auto 0.1 % (0-2); Eosinophils Percent Auto 0.1 % (0-4); Hematocrit 37.6 % (37.0-47.0); Hemoglobin 12.2 g/dl (12.0-16.0); Imm Gran Abs Auto 0.09 X10*3/uL (0.00-0.03); Imm Gran Pct Auto 0.5 % (0.0-0.4); Lymphocytes Absolute Auto 1.9 X10*3/uL (1.2-4.9); Lymphocytes Percent Auto 11.2 % (20-40); MANUAL DIFF FLAG SCAN; Mean Corpuscular HGB Conc 32.4 g/dl (31.0-35.0); Mean Corpuscular Hemoglobin 29.8 pg (27.0-33.0); Mean Corpuscular Volume 91.9 fL (80.0-98.0); Mean Platelet Volume 11.2 fL (9.4-12.3); Monocytes Absolute Auto 1.7 X10*3/uL (0.1-1.2); Monocytes Percent Auto 10.1 % (2-11); Neutrophils Absolute Auto 12.9 x10*3/uL (2.0-8.3); Platelet Count 279 X10*3/uL (160-400); Red Blood Count 4.09 X10*6/uL (4.20-5.50); Red Cell Distribution Width 13.5 % (11.0-16.0); SCAN SMEAR FLAG 1; White Blood Count 16.6 X10*3/uL (4.8-10.8)
[2021-06-06 17:07] LABS: Anion Gap 12 (12-20); Blood Urea Nitrogen 10 mg/dL (9-16); Calcium 8.3 mg/dL (8.4-10.2); Carbon Dioxide 32 mmol/L (22-29); Chloride 95 mmol/L (96-108); Creatinine Clr Calc Pharmacy 97.4; Estimated Glomerular Filt Rate > 60; Glucose Random 247 mg/dL (60-115); Potassium 4.1 mmol/L (3.3-5.1); Sodium 135 mmol/L (135-145)
[2021-06-06 17:13] LABS: B Type Natriuretic Peptide 191 pg/mL (<100); Troponin-I High Sensitivity 4.6 ng/L (<3.5-17.0)
[2021-06-06 17:19] LABS: SLIDE REVIEW VERIFIED
[2021-06-06 17:28] LABS: Influenza A PCR NEGATIVE (Negative); Influenza B PCR NEGATIVE (Negative); Resp Syncy Virus RNA Qual PCR NEGATIVE (Negative); SARS COV2 PCR INHOUSE NEGATIVE (Negative)
[2021-06-06] MEDS: cefTRIAXone sodium 1 GM in 0.9 % Sodium Chloride 50 ML IV (19:10)
[2021-06-06] MEDS: Azithromycin 500 MG in 0.9 % Sodium Chloride 250 ML 125 MG IV (19:30)
--- NOTE | 2021-06-06 19:45 | P.HPHOSP_ITS ---
History of Present Illness Date of Service: 06/06/21 Chief Complaint: shortness of breath 46-year-old female with a past medical history of type 1 diabetes on insulin pump, opiate abuse, migraine headaches presented to the hospital with a chief complaint of shortness of breath. Patient reported that over the past 1-2 days she has been having shortness of breath which has been gradually worsening; worsens on exertion. Denies any orthopnea. Denies any fever chills . Complains of cough. Denies any sputum production. Denies any chest pain palpitations. As the symptoms were not improving decided to come to the ER for further evaluation. Review of all other systems is negative except mentioned above ER course: Per ER team patient noted to be mildly hypoxic; placed on supplemental oxygen. Not in respiratory distress; coarse breath sounds with rales; chest x-ray showed possible multifocal pneumonia; CT chest was done. COVID-19 negative. Respiratory syncytial virus negative. Patient given ceftriaxone azithromycin. Admitted to the hospital for further management. [facility] Medical History (Updated 06/06/21 @ 19:32 by Lang Barr MD) Asthma Asthma Diabetes Diabetic acetonemia Drug abuse in remission Drug overdose Hypercapnic respiratory failure, chronic Moderate obesity Pneumonia Pneumonia Post-tubal ligation syndrome Transaminitis Pertinent family history: Reviewed Social History Household Members: Significant Other Household Members Other:: 1 Housing: House Do you presently have visiting nurse or other home services: No Patient Tobacco Use Status: Current everyday Tobacco user Tobacco use type: Cigarette Cigarette Packs Per Day: 1 Cigarettes Per Day: 20.0 Years Smoked: 20 e-Cigarette/Vaping Use: Never Used Second Hand Smoke Exposure: Yes Substance Use Type: Heroin Advance Directives: No Advance Directives Information Provided: No service: No Current occupational status: unemployed Meds Allergies Allergy/AdvReac Type Severity Reaction Status Date / Time ibuprofen [IBUPROFEN] Allergy Unknown LIGHTHEADED;FEELS Verified 12/14/20 23:29 LIKE CHEST IS CLOSING IN;CLAUSTROPHOBIC Active Medications: Current Medications Azithromycin 500 mg/ Sodium (Chloride) 250 mls @ 125 mls/hr IV ONCE ONE Stop: 06/06/21 20:19 Pharmacy Consult (Consult Rx Perform Med Rec) 1 each MISCELLANE ONCE PRN PRN Reason: Consult order Home Medications Medication Instructions Recorded Confirmed Last Taken Type albuterol sulfate 90 mcg/actuation 2 puff INHALATION Q6H PRN 10/04/20 06/06/21 06/05/21 History aerosol inhaler aspirin 81 mg tablet,delayed 81 mg PO DAILY 10/04/20 06/06/21 06/05/21 History release fluticasone propionate 220 2 puff PO BID 10/04/20 06/06/21 06/05/21 History mcg/actuation HFA aerosol inhaler (Flovent HFA) ipratropium 0.5 mg-albuterol 3 mg 1 vial INHALATION Q6H PRN 10/04/20 06/06/21 06/05/21 History (2.5 mg base)/3 mL nebulization soln subcutaneous insulin pump 10/04/20 05/07/21 Unknown History sumatriptan succinate 50 mg tablet 50 mg PO DAILY MRX1 PRN MDD 2 10/04/20 06/06/21 06/05/21 History TABLETS cetirizine 10 mg tablet 1 tab PO BID 06/06/21 06/06/21 06/05/21 History famotidine 20 mg tablet (Pepcid) 20 mg PO DAILY 06/06/21 06/06/21 06/05/21 History insulin lispro 100 unit/mL See Rx Instructions .ROUTE .COMPLEX 06/06/21 06/06/21 06/05/21 History subcutaneous solution (Humalog U-100 Insulin) Physical Exam Vital Signs and Narrative: Vital Signs: Last Vital Signs Temp 98.9 F 06/06/21 15:59 Pulse 116 H 06/06/21 16:18 BP 130/68 06/06/21 15:59 Pulse Ox 88 L 06/06/21 15:59 Oxygen Flow Rate 2 06/06/21 15:59 BMI result Body Mass Index 33.7 Gen: Appears be in no acute distress. Speaks in full sentences. Not in respiratory distress. HEENT: NCAT, Moist mucosa. Pulmonary: coarse breath sounds, fair air entry; bilateral expiratory wheezing noted. CVS: Normal S1-S2 Abdomen: BS+, Soft, Nontender Extremities: Warm well perfused Neuro: Alert and awake. Results Labs CBC and Chem 7: 06/06/21 16:40 06/06/21 16:40 Labs: Laboratory Results - last 24 hr 06/06/21 06/06/2106/06/21 16:40 16:40 16:40 MCV 91.9 MCH 29.8 MCHC 32.4 RDW 13.5 Plt Count 279 MPV 11.2 Immature Gran % (Auto) 0.5 H Neut % (Auto) 78.0 H Lymph % (Auto) 11.2 L [place] % (Auto) 10.1 Eos % (Auto) 0.1 Baso % (Auto) 0.1 Lymph # (Auto) 1.9 [place] # (Auto) 1.7 H Eos # (Auto) 0.0 Baso # (Auto) 0.0 Abs Immat Gran (auto) 0.09 H Absolute Neuts (auto) 12.9 H Absolute Nucleated RBC 0.000 Nucleated RBC % (auto) 0.0 Smear Tech's Comments VERIFIED Anion Gap 12 Estim Creat Clear Calc 97.4 Estimated GFR > 60 Random Glucose 247 H Lactic Acid Calcium 8.3 L D Troponin I High Sens B-Natriuretic Peptide Influenza Type A (PCR) NEGATIVE Influenza Type B (PCR) NEGATIVE RSV RNA Qual (PCR) NEGATIVE SARS-CoV-2 RNA (RT-PCR) NEGATIVE 06/06/21 06/06/21 16:40 18:43 MCV MCH MCHC RDW Plt Count MPV Immature Gran % (Auto) Neut % (Auto) Lymph % (Auto) [place] % (Auto) Eos % (Auto) Baso % (Auto) Lymph # (Auto) [place] # (Auto) Eos # (Auto) Baso # (Auto) Abs Immat Gran (auto) Absolute Neuts (auto) Absolute Nucleated RBC Nucleated RBC % (auto) Smear Tech's Comments Anion Gap Estim Creat Clear Calc Estimated GFR Random Glucose Lactic Acid 1.0 Calcium Troponin I High Sens 4.6 B-Natriuretic Peptide 191 H Influenza Type A (PCR) Influenza Type B (PCR) RSV RNA Qual (PCR) SARS-CoV-2 RNA (RT-PCR) Imaging Radiologist's Impressions: Impressions Chest X-Ray 06/06/21 16:56 IMPRESSION: Diffuse parahilar bilateral lung infiltrates. Differential diagnosis includes pulmonary edema. Assessment and Plan (1) Community acquired pneumonia: Qualifiers: Laterality: unspecified laterality Qualified Code(s): J18.9 - Pneumonia, unspecified organism Status: Acute (2) Hypoxia: Status: Acute 46-year-old female with a past medical history of type 1 diabetes on insulin pump, opiate abuse, migraine headaches presented to the hospital with a chief complaint of shortness of breath. Noted to have multifocal pneumonia. Admitted for further management. Multifocal pneumonia: Continue ceftriaxone azithromycin. COVID-19 RSV negative. Continue supplemental oxygen. Id consult Reactive airway disease: Continue nebulizations standing and p.r.n.. Dexamethasone. Type 1 diabetes: Patient on insulin pump. Patient continued on home insulin pump. Monitor fingerstick glucose. Opiate abuse: Patient not on methadone clinic. Addiction Medicine consulted. Cause protocol. GI prophylaxis: Pepcid DVT prophylaxis: Lovenox Code status: Full code Quality Stroke Does the patient have a stroke diagnosis?: No VTE Prior VTE?: No VTE Risk Level:: Medical - moderate - high VTE Device Contraindication: Treatment Not Indicated VTE Drug Contraindication: N/A - Med Ordered
[2021-06-06] MEDS: Enoxaparin Sodium 40 MG/0.4 ML SYRINGE SUBCUT (20:06)
--- NOTE | 2021-06-06 20:08 | PHA.MEDREC ---
Pharmacy Consult ? Medication Reconciliation Pharmacy has completed the medication reconciliation. There are no remarkable issues. Patient reports that she uses [facility] once in a [place]. Patrizia Heck, StephanieD
[2021-06-06 20:11] VITALS: BP 120/54; PULSE 104; RESP 15; O2SAT 95
[2021-06-06 22:10] LABS: Glucose, Whole Blood 212 mg/dL (60-115)
[2021-06-06] MEDS: Insulin Lispro 100 UNIT/ML 3 ML VIAL SUBCUT (22:11)
--- NOTE | 2021-06-06 22:37 | MHC.CM.PN ---
CM met with admitted patient with bed assignment pending. No IMM necessary. A&Ox3. Pt admitted to [facility] 05/07-03/22 with fentanyl OD. No methadone. No suboxone. States anniversary of mother's . Aware that CARE team will meet with patient during her hospital stay. Lives with S.O./HCP Erasto Boyd ([phone]). HCP on file. Pt. lives with Erasto. Has insulin pump and home Oxygen @2L. Pt fully vaccinated with Pfizer. No booster. Pt uses [employer] for her home oxygen. D/C plan is home without services. Pt states she will take a taxi home. CM to follow for d/c needs.
[2021-06-06] MEDS: dexAMETHasone 6 MG TABLET PO (23:03)
[2021-06-07] VITALS (9 sets, daily range): BP systolic 121–142; BP diastolic 66–74; PULSE 76–97; RESP 17–22; TEMP 36–37; O2SAT 91–94
[2021-06-07] MEDS: Morphine Sulfate 4 MG/ML CARTRIDGE 1 MG IVPUSH (04:54)
--- NOTE | 2021-06-07 05:03 | PC.NURSE ---
pt woke up complaining of sob. notified respiratory and breathing treatment. medicated per aug
--- NOTE | 2021-06-07 07:34 | PC.NURSE ---
PT AWAKE AND STATES SHE HAD SOME SLEEP LAST NIGHT. PRODUCTIVE COUGH CONTINUES WITHOUT RESP DISTRESS. SHE IS MANAGING HER INSULIN PUMP AND IS HAVING BREAKFAST
[2021-06-07 07:36] LABS: MANUAL DIFF FLAG NO
[2021-06-07 07:40] LABS: Glucose, Whole Blood 177 mg/dL (60-115)
[2021-06-07 07:41] LABS: Basophils Percent Auto 0.2 % (0-2); Hematocrit 37.4 % (37.0-47.0); Hemoglobin 12.3 g/dl (12.0-16.0); Imm Gran Abs Auto 0.11 X10*3/uL (0.00-0.03); Imm Gran Pct Auto 1.1 % (0.0-0.4); Lymphocytes Absolute Auto 0.9 X10*3/uL (1.2-4.9); Lymphocytes Percent Auto 8.4 % (20-40); Mean Corpuscular HGB Conc 32.9 g/dl (31.0-35.0); Mean Corpuscular Hemoglobin 30.4 pg (27.0-33.0); Mean Corpuscular Volume 92.6 fL (80.0-98.0); Mean Platelet Volume 10.9 fL (9.4-12.3); Monocytes Absolute Auto 0.1 X10*3/uL (0.1-1.2); Monocytes Percent Auto 1.3 % (2-11); Neutrophils Absolute Auto 9.1 x10*3/uL (2.0-8.3); Platelet Count 284 X10*3/uL (160-400); Red Blood Count 4.04 X10*6/uL (4.20-5.50); Red Cell Distribution Width 13.7 % (11.0-16.0); White Blood Count 10.2 X10*3/uL (4.8-10.8)
[2021-06-07 08:05] LABS: Anion Gap 13 (12-20); Blood Urea Nitrogen 9 mg/dL (9-16); Calcium 8.2 mg/dL (8.4-10.2); Carbon Dioxide 31 mmol/L (22-29); Chloride 97 mmol/L (96-108); Creatinine Clr Calc Pharmacy 109.4; Estimated Glomerular Filt Rate > 60; Glucose Random 156 mg/dL (60-115); Potassium 4.7 mmol/L (3.3-5.1); Sodium 136 mmol/L (135-145)
[2021-06-07] MEDS: dexAMETHasone 6 MG TABLET PO (09:00)
[2021-06-07] MEDS: Famotidine 20 MG TABLET PO (09:00)
[2021-06-07] MEDS: Aspirin Enteric Coated 81 MG TABLET.DR PO (09:00)
[2021-06-07] MEDS: Loratadine 10 MG TABLET PO ×2 (09:00→19:25)
[2021-06-07] MEDS: Subcutaneous Insulin Pump 1 EACH SUBCUT ×4 (09:03→21:46)
[2021-06-07] MEDS: Albuterol/Iprat 2.5/0.5MG 3 ML AMPUL.NEB INHALE ×3 (09:11→20:29)
--- NOTE | 2021-06-07 09:30 | MHC.RECOVRN ---
T/w met with pt in ED22 after consult placed to Addiction Medicine. Pt familiar with t/w from previous consult. Pt reports using heroin, IN, 1 bag here and there when I'm depressed. Last use yesterday morning, 1 bag. Pt also reports using partner's Ativan (1 mg) once in a while when I need it. Pt has been to [facility] and received methadone, in November of this year, x 2 months. Pt reports dose was 35 mg. Pt unable to continue due to transportation and health issues. Pt has also been on Suboxone in the past, reports it was not helpful and states I sold them. Pt has been to [facility] x 3, last in 2018. Pt would like to utilize methadone while in the hospital to manage withdrawal symptoms and cravings. Pt states I only want a small dose. I don't want to be on it, it's just replacing the heroin. 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 Discussed with Danette Babb APRN. Will continue to follow.
--- NOTE | 2021-06-07 10:21 | PC.NURSE ---
AMBULATES TO THE BATHROOM WITH 02NC 3L FOR ADLS. MILD SOB NOTED BUT RECOVERS EASILY. AWAITING ADMISSION TO [facility]
--- NOTE | 2021-06-07 10:32 | PC.NURSE ---
REPORT GIVEN FOR ADMISSION
[2021-06-07] MEDS: methylPREDNISolone Sod Succ 40 MG/ML VIAL IVPUSH ×2 (10:52→17:09)
[2021-06-07 11:14] LABS: Glucose, Whole Blood 316 mg/dL (60-115)
--- NOTE | 2021-06-07 11:33 | HO.ADDICTCON ---
History of Present Illness Date of Service: 06/07/2021 Chief Complaint: Multifocal pneumonia Reason for Consult: Opioid use disorder Requesting physician: Francis Ibrahim Sources of Information: patient interviewed and chart reviewed HPI Narrative: Patient is a 46 year old female with DMI and opioid use disorder medially admitted with pneumonia. Consult requested to evaluate and treat OUD. Patient seen in room 22 of ED-RSRN present during interview. Chart reviewed including SUDE from 05/2021 when patient was in ED. Patient reporting long history of opioid use and treatment. Most recently on methadone until December 2020, chaudhary she reports self tapering from 35mg dose. She reports she is currently using approximately 5mg methadone daily or 1 bag of heroin daily (depending on if she has money)--unclear if patient is under reporting amount of use. She denies any withdrawal sx at time of interview and reports last use of heroin was yesterday (Sunday) and last use of methadone was over 48 hours ago. Engaged patient in discussion regarding motivation to stop opioid use or continue using. She reports wanting to stop using opioids and also identified several challenges with this including her partner who is actively using opioids as well. She expressed hesitation with JUANJO and greging that is was just swapping one for the other . Provided education, supportive listening and different options to address withdrawal sx if necessary. denies any other substance use with the exception of lorazepam which she states she will occasionally get from her when I am worked up . States she was previously engaged in treatment with a psychiatrist but that was over a year ago. Review of Systems Constitutional: Reports lethargy Gastrointestinal: Denies loose stools, Denies nausea and Denies vomiting Psychiatric: Reports anxiety and Reports irritability Diagnostics Vital Signs (24Hr): Vital Signs - 24 hr 06/06/21 15:59 06/06/21 16:18 06/06/21 20:11 Temperature 98.9 F Pulse Rate 119 H 116 H 104 H Respiratory Rate 15 Blood Pressure 130/68 120/54 L Pulse Oximetry 88 L 95 06/07/21 05:44 06/07/21 07:33 06/07/21 09:12 Temperature 98.6 F Pulse Rate 97 79 Respiratory Rate 22 H Blood Pressure 125/71 121/66 Pulse Oximetry 94 94 06/07/21 10:47 06/07/21 10:59 Temperature 98.3 F 98.3 F Pulse Rate 81 82 Respiratory Rate 18 18 Blood Pressure 132/69 132/69 Pulse Oximetry 92 92 BMI result Body Mass Index 33.7 Labs Results: 06/07/21 07:28 06/07/21 07:28 Labs: Laboratory Results - last 48 hr 06/06/21 06/06/21 06/06/21 16:40 16:40 16:40 WBC 16.6 H RBC 4.09 L Hgb 12.2 Hct 37.6 MCV 91.9 MCH 29.8 MCHC 32.4 RDW 13.5 Plt Count 279 MPV 11.2 Immature Gran % (Auto) 0.5 H Neut % (Auto) 78.0 H Lymph % (Auto) 11.2 L [place] % (Auto) 10.1 Eos % (Auto) 0.1 Baso % (Auto) 0.1 Lymph # (Auto) 1.9 [place] # (Auto) 1.7 H Eos # (Auto) 0.0 Baso # (Auto) 0.0 Abs Immat Gran (auto) 0.09 H Absolute Neuts (auto) 12.9 H Absolute Nucleated RBC 0.000 Nucleated RBC % (auto) 0.0 Smear Tech's Comments VERIFIED Sodium 135 Potassium 4.1 Chloride 95 L Carbon Dioxide 32 H Anion Gap 12 BUN 10 Creatinine 0.64 Estim Creat Clear Calc 97.4 Estimated GFR > 60 POC Glucose Random Glucose 247 H Lactic Acid Calcium 8.3 L D Troponin I High Sens B-Natriuretic Peptide Influenza Type A (PCR) NEGATIVE Influenza Type B (PCR) NEGATIVE RSV RNA Qual (PCR) NEGATIVE SARS-CoV-2 RNA (RT-PCR) NEGATIVE 06/06/21 06/06/21 06/06/21 16:40 18:43 22:05 WBC RBC Hgb Hct MCV MCH MCHC RDW Plt Count MPV Immature Gran % (Auto) Neut % (Auto) Lymph % (Auto) [place] % (Auto) Eos % (Auto) Baso % (Auto) Lymph # (Auto) [place] # (Auto) Eos # (Auto) Baso # (Auto) Abs Immat Gran (auto) Absolute Neuts (auto) Absolute Nucleated RBC Nucleated RBC % (auto) Smear Tech's Comments Sodium Potassium Chloride Carbon Dioxide Anion Gap BUN Creatinine Estim Creat Clear Calc Estimated GFR POC Glucose 212 H Random Glucose Lactic Acid 1.0 Calcium Troponin I High Sens 4.6 B-Natriuretic Peptide 191 H Influenza Type A (PCR) Influenza Type B (PCR) RSV RNA Qual (PCR) SARS-CoV-2 RNA (RT-PCR) 06/07/21 06/07/21 06/07/21 07:28 07:28 07:35 WBC 10.2 RBC 4.04 L Hgb 12.3 Hct 37.4 MCV 92.6 MCH 30.4 MCHC 32.9 RDW 13.7 Plt Count 284 MPV 10.9 Immature Gran % (Auto) 1.1 H Neut % (Auto) 89.0 H Lymph % (Auto) 8.4 L [place] % (Auto) 1.3 L Eos % (Auto) 0.0 Baso % (Auto) 0.2 Lymph # (Auto) 0.9 L [place] # (Auto) 0.1 Eos # (Auto) 0.0 Baso # (Auto) 0.0 Abs Immat Gran (auto) 0.11 H Absolute Neuts (auto) 9.1 H Absolute Nucleated RBC 0.000 Nucleated RBC % (auto) 0.0 Smear Tech's Comments Sodium 136 Potassium 4.7 Chloride 97 Carbon Dioxide 31 H Anion Gap 13 BUN 9 Creatinine 0.57 Estim Creat Clear Calc 109.4 Estimated GFR > 60 POC Glucose 177 H Random Glucose 156 H Lactic Acid Calcium 8.2 L Troponin I High Sens B-Natriuretic Peptide Influenza Type A (PCR) Influenza Type B (PCR) RSV RNA Qual (PCR) SARS-CoV-2 RNA (RT-PCR) 06/07/21 11:06 WBC RBC Hgb Hct MCV MCH MCHC RDW Plt Count MPV Immature Gran % (Auto) Neut % (Auto) Lymph % (Auto) [place] % (Auto) Eos % (Auto) Baso % (Auto) Lymph # (Auto) [place] # (Auto) Eos # (Auto) Baso # (Auto) Abs Immat Gran (auto) Absolute Neuts (auto) Absolute Nucleated RBC Nucleated RBC % (auto) Smear Tech's Comments Sodium Potassium Chloride Carbon Dioxide Anion Gap BUN Creatinine Estim Creat Clear Calc Estimated GFR POC Glucose 316 H Random Glucose Lactic Acid Calcium Troponin I High Sens B-Natriuretic Peptide Influenza Type A (PCR) Influenza Type B (PCR) RSV RNA Qual (PCR) SARS-CoV-2 RNA (RT-PCR) EKG EKG: reviewed Imaging Radiology Impressions: ITS Impressions Chest X-Ray 06/06/21 16:56 IMPRESSION: Diffuse parahilar bilateral lung infiltrates. Differential diagnosis includes pulmonary edema. Chest CT 06/06/21 19:05 IMPRESSION: Transitory recurrent groundglass crazy paving type infiltrates with some underlying cystic change along with recurring mediastinal lymphadenopathy. Differential diagnosis would include Covid, pulmonary alveolar proteinosis, the cephalic pneumonia, and hypersensitivity pneumonitis among other etiologies. Recurrent pulmonary edema would be another possibility although I would expect to see it least some pleural effusion present which is not the case. Pulmonary medicine consultation is recommended. Fleischner guidelines were followed. Mental Status Exam Mental Status Exam Patient Appearance: Appropriate (appearing older than stated age ) Patient Behavior: Appropriate and Guarded Mood Description: Calm Affect Description: Calm Patient Cognition Impaired: No Speech Pattern: Clear Thought Process: Intact Thought Content: positive for [place] Judgement and Insight: limited insight Medications Medications Current Medications Acetaminophen (Acetaminophen 325 Mg Tablet) 650 mg PO Q6H PRN PRN Reason: Pain, Mild (Pain Scale 1-3) Albuterol Sulfate (Albuterol Sulfate 90 Mcg 8 Gm Inhaler) 2 puff INHALE Q6H PRN PRN Reason: wheezing Albuterol/Ipratropium (Albuterol/Iprat 2.5/0.5mg 3 Ml Ampul.Neb) 3 ml INHALE RQ6H WHILE AWAKE [facility] Last Admin: 06/07/21 09:11 Dose: 3 ml Documented by: Albuterol/Ipratropium (Albuterol/Iprat 2.5/0.5mg 3 Ml Ampul.Neb) 3 ml INHALE RQ4H PRN PRN Reason: Shortness of Breath/Wheezing Albuterol/Ipratropium (Albuterol/Iprat 2.5/0.5mg 3 Ml Ampul.Neb) 3 ml INHALE Q6H PRN PRN Reason: wheezing Aspirin (Aspirin Enteric Coated 81 Mg Tablet.Dr) 81 mg PO DAILY [facility] Last Admin: 06/07/21 09:00 Dose: 81 mg Documented by: Benzonatate (Benzonatate 100 Mg Capsule) 100 mg PO TID PRN PRN Reason: Cough Dextrose (Dextrose 50 % 25 Gm/50 Ml Vial) 25 gm IVPUSH Q15M PRN; Protocol PRN Reason: per Hypoglycemia Standing Ord. Enoxaparin Sodium (Enoxaparin Sodium 40 Mg/0.4 Ml Syringe) 40 mg SUBCUT Q24H [facility] Last Admin: 06/06/21 20:06 Dose: 40 mg Documented by: Famotidine (Famotidine 20 Mg Tablet) 20 mg PO DAILY [facility] Last Admin: 06/07/21 09:00 Dose: 20 mg Documented by: Glucose (Glucose Gel 15 Gm Gel..Gram.) 15 gm PO Q15M PRN; Protocol PRN Reason: per Hypoglycemia Standing Ord. Azithromycin 500 mg/ Sodium (Chloride) 250 mls @ 125 mls/hr IV Q24H [facility] Ceftriaxone Sodium 1 gm/ (Sodium Chloride) 50 mls @ 100 mls/hr IV Q24H [facility] Insulin Pump (Subcutaneous Insulin Pump) 1 each SUBCUT QIDACHS [facility]; Protocol Last Admin: 06/07/21 09:03 Dose: 1 each Documented by: Loratadine (Loratadine 10 Mg Tablet) 10 mg PO BID [facility] Last Admin: 06/07/21 09:00 Dose: 10 mg Documented by: Lorazepam (Lorazepam 1 Mg Tablet) 1 mg PO BID PRN PRN Reason: anxiety Melatonin (Melatonin 3 Mg Tablet) 6 mg PO BEDTIME PRN PRN Reason: Insomnia Methylprednisolone Sodium Succinate (Methylprednisolone Sod Succ 40 Mg/Ml Vial) 40 mg IVPUSH Q8H [facility] Last Admin: 06/07/21 10:52 Dose: 40 mg Documented by: Morphine Sulfate (Morphine Sulfate 4 Mg/Ml Cartridge) 1 mg IVPUSH Q4H PRN; Protocol PRN Reason: Pain, SOB Last Admin: 06/07/21 04:54 Dose: 1 mg Documented by: Pharmacy Consult (Consult Rx Perform Med Rec) 1 each MISCELLANE ONCE PRN PRN Reason: Consult order Senna (Sennosides 8.6 Mg Tablet) 17.2 mg PO BEDTIME PRN PRN Reason: Constipation Sodium Chloride (0.9 % Sodium Chloride Flush 3 Ml Syringe) 3 ml IVFLUSH QSHIFT [facility] Last Admin: 06/07/21 09:02 Dose: Not Given Documented by: Sumatriptan Succinate (Sumatriptan Succinate 50 Mg Tablet) 50 mg PO DAILY MRX1 PRN PRN Reason: Headache Allergies Allergies Allergy/AdvReac Type Severity Reaction Status Date / Time ibuprofen [IBUPROFEN] Allergy Unknown LIGHTHEADED;FEELS Verified 12/14/20 23:29 LIKE CHEST IS CLOSING IN;CLAUSTROPHOBIC Assessment & Plan Assessment & Plan (1) Opioid use disorder: Status: Acute Code(s): F11.90 - Opioid use, unspecified, uncomplicated Assessment and Plan: At this time patient not showing or reporting any sx of withdrawal. Continue to monitor and document COWS score. If necessary. may administer methadone 10mg X1 Will follow up later today or in the AM to provide additional resources and reassess readiness for treatment I spent __35____ minutes with the patient and/or on the patient floor today, greater than?50% of which was spent counseling/coordinating care. PMF Past Medical History Medical History (Updated 06/07/21 @ 12:12 by Danette Babb CNP) Asthma Asthma Diabetes Diabetic acetonemia Drug abuse in remission Drug overdose Hypercapnic respiratory failure, chronic Moderate obesity Pneumonia Pneumonia Post-tubal ligation syndrome Transaminitis Social History Social History Household Members: Significant Other Household Members Other:: 1 Housing: House Do you presently have visiting nurse or other home services: No Patient Tobacco Use Status: Current everyday Tobacco user Tobacco use type: Cigarette Cigarette Packs Per Day: 1 Cigarettes Per Day: 20.0 Years Smoked: 20 e-Cigarette/Vaping Use: Never Used Second Hand Smoke Exposure: Yes Substance Use Type: Heroin Advance Directives: No Advance Directives Information Provided: No service: No Current occupational status: unemployed
[2021-06-07] MEDS: SUMAtriptan succinate 50 MG TABLET PO ×2 (12:50→19:24)
--- NOTE | 2021-06-07 13:53 | HO.PM.IMPN ---
Subjective Subjective Date of Service: 06/07/21 Interval History: Being followed for multifocal pneumonia, complaining of persistent shortness of breath and cough, denies fever, no chills. Review of Systems General no headache, no dizziness no fever chills. CVS no chest pain, no palpitation. Respiratory shortness of breath, cough productive of clear and at times yellow phlegm Gastrointestinal no nausea, no vomiting, no abdominal pain Review of Systems: Yes all other systems are reviewed and are negative Physical Exam Vital Signs: Vital Signs: Last Vital Signs Temp 98.3 F 06/07/21 10:59 Pulse 76 06/07/21 13:42 Resp 18 06/07/21 10:59 BP 132/69 06/07/21 10:59 Pulse Ox 92 06/07/21 10:59 Oxygen Flow Rate 2 06/06/21 15:59 BMI result Body Mass Index 33.7 General awake alert x3, acute distress. Neck no JVD. CVS regular rate rhythm, Respiratory lungs bilateral rhonchi, no respiratory distress, no use of accessory muscles Gastrointestinal abdomen soft, nontender, bowel sounds audible Extremities no edema. Neuro nonfocal Skin no rash Psych appropriate affect Objective Data Active Medications Acetaminophen (Acetaminophen 325 Mg Tablet) 650 mg PO Q6H PRN PRN Reason: Pain, Mild (Pain Scale 1-3) Albuterol Sulfate (Albuterol Sulfate 90 Mcg 8 Gm Inhaler) 2 puff INHALE Q6H PRN PRN Reason: wheezing Albuterol/Ipratropium (Albuterol/Iprat 2.5/0.5mg 3 Ml Ampul.Neb) 3 ml INHALE RQ6H WHILE AWAKE [facility] Last Admin: 06/07/21 13:41 Dose: 3 ml Documented by: PRAVEEN Albuterol/Ipratropium (Albuterol/Iprat 2.5/0.5mg 3 Ml Ampul.Neb) 3 ml INHALE RQ4H PRN PRN Reason: Shortness of Breath/Wheezing Albuterol/Ipratropium (Albuterol/Iprat 2.5/0.5mg 3 Ml Ampul.Neb) 3 ml INHALE Q6H PRN PRN Reason: wheezing Aspirin (Aspirin Enteric Coated 81 Mg Tablet.) 81 mg PO DAILY [facility] Last Admin: 06/07/21 09:00 Dose: 81 mg Documented by: HO.WOOD Benzonatate (Benzonatate 100 Mg Capsule) 100 mg PO TID PRN PRN Reason: Cough Dextrose (Dextrose 50 % 25 Gm/50 Ml Vial) 25 gm IVPUSH Q15M PRN; Protocol PRN Reason: per Hypoglycemia Standing Ord. Enoxaparin Sodium (Enoxaparin Sodium 40 Mg/0.4 Ml Syringe) 40 mg SUBCUT Q24H [facility] Last Admin: 06/06/21 20:06 Dose: 40 mg Documented by: CHANDLER Famotidine (Famotidine 20 Mg Tablet) 20 mg PO DAILY [facility] Last Admin: 06/07/21 09:00 Dose: 20 mg Documented by: ARIA Glucose (Glucose Gel 15 Gm Gel..Gram.) 15 gm PO Q15M PRN; Protocol PRN Reason: per Hypoglycemia Standing Ord. Azithromycin 500 mg/ Sodium (Chloride) 250 mls @ 125 mls/hr IV Q24H [facility] Ceftriaxone Sodium 1 gm/ (Sodium Chloride) 50 mls @ 100 mls/hr IV Q24H [facility] Insulin Pump (Subcutaneous Insulin Pump) 1 each SUBCUT QIDACHS [facility]; Protocol Last Admin: 06/07/21 12:51 Dose: 1 each Documented by: SANTA Loratadine (Loratadine 10 Mg Tablet) 10 mg PO BID [facility] Last Admin: 06/07/21 09:00 Dose: 10 mg Documented by: ARIA Lorazepam (Lorazepam 1 Mg Tablet) 1 mg PO BID PRN PRN Reason: anxiety Melatonin (Melatonin 3 Mg Tablet) 6 mg PO BEDTIME PRN PRN Reason: Insomnia Methylprednisolone Sodium Succinate (Methylprednisolone Sod Succ 40 Mg/Ml Vial) 40 mg IVPUSH Q8H [facility] Last Admin: 06/07/21 10:52 Dose: 40 mg Documented by: MITCHEL Morphine Sulfate (Morphine Sulfate 4 Mg/Ml Cartridge) 1 mg IVPUSH Q4H PRN; Protocol PRN Reason: Pain, SOB Last Admin: 06/07/21 04:54 Dose: 1 mg Documented by: MICHELLE Pharmacy Consult (Consult Rx Perform Med Rec) 1 each MISCELLANE ONCE PRN PRN Reason: Consult order Senna (Sennosides 8.6 Mg Tablet) 17.2 mg PO BEDTIME PRN PRN Reason: Constipation Sodium Chloride (0.9 % Sodium Chloride Flush 3 Ml Syringe) 3 ml IVFLUSH QSHIFT [facility] Last Admin: 06/07/21 09:02 Dose: Not Given Documented by: ARIA Non-Admin Reason: Med Not Available Sumatriptan Succinate (Sumatriptan Succinate 50 Mg Tablet) 50 mg PO DAILY MRX1 PRN PRN Reason: Headache Last Admin: 06/07/21 12:50 Dose: 50 mg Documented by: SANTA Labs CBC & Chem 7: 06/07/21 07:28 06/07/21 07:28 Labs: Laboratory Results - last 24 hr 06/06/21 06/06/21 06/06/21 16:40 16:40 16:40 MCV 91.9 MCH 29.8 MCHC 32.4 RDW 13.5 Plt Count 279 MPV 11.2 Immature Gran % (Auto) 0.5 H Neut % (Auto) 78.0 H Lymph % (Auto) 11.2 L [place] % (Auto) 10.1 Eos % (Auto) 0.1 Baso % (Auto) 0.1 Lymph # (Auto) 1.9 [place] # (Auto) 1.7 H Eos # (Auto) 0.0 Baso # (Auto) 0.0 Abs Immat Gran (auto) 0.09 H Absolute Neuts (auto) 12.9 H Absolute Nucleated RBC 0.000 Nucleated RBC % (auto) 0.0 Smear Tech's Comments VERIFIED Anion Gap 12 Estim Creat Clear Calc 97.4 Estimated GFR > 60 POC Glucose Random Glucose 247 H Lactic Acid Calcium 8.3 L D Troponin I High Sens B-Natriuretic Peptide Influenza Type A (PCR) NEGATIVE Influenza Type B (PCR) NEGATIVE RSV RNA Qual (PCR) NEGATIVE SARS-CoV-2 RNA (RT-PCR) NEGATIVE 06/06/21 06/06/21 06/06/21 16:40 18:43 22:05 MCV MCH MCHC RDW Plt Count MPV Immature Gran % (Auto) Neut % (Auto) Lymph % (Auto) [place] % (Auto) Eos % (Auto) Baso % (Auto) Lymph # (Auto) [place] # (Auto) Eos # (Auto) Baso # (Auto) Abs Immat Gran (auto) Absolute Neuts (auto) Absolute Nucleated RBC Nucleated RBC % (auto) Smear Tech's Comments Anion Gap Estim Creat Clear Calc Estimated GFR POC Glucose 212 H Random Glucose Lactic Acid 1.0 Calcium Troponin I High Sens 4.6 B-Natriuretic Peptide 191 H Influenza Type A (PCR) Influenza Type B (PCR) RSV RNA Qual (PCR) SARS-CoV-2 RNA (RT-PCR) 06/07/21 06/07/21 06/07/21 07:28 07:28 07:35 MCV 92.6 MCH 30.4 MCHC 32.9 RDW 13.7 Plt Count 284 MPV 10.9 Immature Gran % (Auto) 1.1 H Neut % (Auto) 89.0 H Lymph % (Auto) 8.4 L [place] % (Auto) 1.3 L Eos % (Auto) 0.0 Baso % (Auto) 0.2 Lymph # (Auto) 0.9 L [place] # (Auto) 0.1 Eos # (Auto) 0.0 Baso # (Auto) 0.0 Abs Immat Gran (auto) 0.11 H Absolute Neuts (auto) 9.1 H Absolute Nucleated RBC 0.000 Nucleated RBC % (auto) 0.0 Smear Tech's Comments Anion Gap 13 Estim Creat Clear Calc 109.4 Estimated GFR > 60 POC Glucose 177 H Random Glucose 156 H Lactic Acid Calcium 8.2 L Troponin I High Sens B-Natriuretic Peptide Influenza Type A (PCR) Influenza Type B (PCR) RSV RNA Qual (PCR) SARS-CoV-2 RNA (RT-PCR) 06/07/21 11:06 MCV MCH MCHC RDW Plt Count MPV Immature Gran % (Auto) Neut % (Auto) Lymph % (Auto) [place] % (Auto) Eos % (Auto) Baso % (Auto) Lymph # (Auto) [place] # (Auto) Eos # (Auto) Baso # (Auto) Abs Immat Gran (auto) Absolute Neuts (auto) Absolute Nucleated RBC Nucleated RBC % (auto) Smear Tech's Comments Anion Gap Estim Creat Clear Calc Estimated GFR POC Glucose 316 H Random Glucose Lactic Acid Calcium Troponin I High Sens B-Natriuretic Peptide Influenza Type A (PCR) Influenza Type B (PCR) RSV RNA Qual (PCR) SARS-CoV-2 RNA (RT-PCR) Assessment and Plan (1) Opioid use disorder: Status: Acute (2) Community acquired pneumonia: Status: Acute (3) Hypoxia: Status: Acute (4) Leukocytosis: Status: Acute Assessment and Plan: 46-year-old female with a past medical history of type 1 diabetes on insulin pump, opiate abuse, migraine headaches presented to the hospital with a chief complaint of shortness of breath, Noted to have multifocal pneumonia.? Admitted for further management.? Acute hypoxic respiratory failure due to Community-acquired pneumonia Continue IV ceftriaxone and azithromycin day 2 COVID-19 RSV negative.? Will add cough syrup, Continue supplemental oxygen.? Patient not on home oxygen will gradually wean O2. Mild asthma exacerbation, Continue nebulizations standing and p.r.n., will place on IV Solu Medrol, continue home inhalers Type 1 diabetes: Continue on home insulin pump.? Monitor fingerstick glucose.? Opiate abuse: Use 1 bag of heroin or methadone 5 mg daily seen by addiction team since no withdrawal symptoms will follow clinically, if needed will give methadone 10 mg x 1 Tobacco use disorder counseling done patient declined nicotine patch GI prophylaxis: Pepcid DVT prophylaxis:? Lovenox Code status:? Full code Quality Stroke Does the patient have a stroke diagnosis?: No VTE Prior VTE?: No VTE Risk Level:: Medical - moderate - high VTE Device Contraindication: Treatment Not Indicated VTE Drug Contraindication: N/A - Med Ordered
[2021-06-07 16:26] LABS: Glucose, Whole Blood 294 mg/dL (60-115)
[2021-06-07] MEDS: methADONE HCl 20 MG/2 ML ORAL.CONC 5 MG PO (16:29)
[2021-06-07] MEDS: 0.9 % Sodium Chloride Flush 3 ML SYRINGE IVFLUSH ×2 (16:30→21:47)
[2021-06-07] MEDS: cefTRIAXone sodium 1 GM in 0.9 % Sodium Chloride 50 ML IV (18:11)
[2021-06-07] MEDS: Azithromycin 500 MG in 0.9 % Sodium Chloride 250 ML 125 MG IV (18:43)
[2021-06-07] MEDS: Enoxaparin Sodium 40 MG/0.4 ML SYRINGE SUBCUT (19:23)
[2021-06-07] MEDS: Benzonatate 100 MG CAPSULE PO (19:24)
[2021-06-07 21:44] LABS: Glucose, Whole Blood 214 mg/dL (60-115)
--- NOTE | 2021-06-07 22:55 | W.PM.IDCN ---
History of Present Illness Data of Consult Service Date: 06/07/21 Requesting physician: Antonio Catherine Primary Care Provider: Nilton Pairkh MD HPI Reason for consult: shortness of breath She presents with one day of shortness of breath and cough. She has low oxygen saturation 88%. CXR shows some diffuse infiltrates and CXR crazy paving and groundglass She has started snorting heroin again. Review of Systems Review of Systems: Yes all other systems are reviewed and are negative PMFSH Past Medical History Medical History Asthma Asthma Diabetes Diabetic acetonemia Drug abuse in remission Drug overdose Hypercapnic respiratory failure, chronic Moderate obesity Pneumonia Pneumonia Post-tubal ligation syndrome Transaminitis Family History Family history: reviewed and not pertinent Social History Social History Household Members: Significant Other Household Members Other:: 1 Housing: House Do you presently have visiting nurse or other home services: No Patient Tobacco Use Status: Current everyday Tobacco user Tobacco use type: Cigarette Cigarette Packs Per Day: 1 Cigarettes Per Day: 20 Years Smoked: 20 Smoked in Last 30 Days: Yes e-Cigarette/Vaping Use: Never Used Patient Interested in Nicotine Replacement: No Patient Given Instructions on How to Stop Smoking: No Second Hand Smoke Exposure: Yes Use of substances other than those prescribed or required for medical reasons: Yes Substance Use Type: Heroin Substance Use Frequency: Weekly Last Used Substance: Just Prior to Admission Currently Displaying Signs/Symptoms of Drug Intoxication Withdrawal: No Any prior treatment program specific to substance use: Yes Have you been hit, kicked, punched, or otherwise hurt by someone within the past year? If so, by whom?: No Do you feel safe in your current relationship?: Yes Is there a partner from a previous relationship who is making you feel unsafe now?: No Are you made to feel afraid or neglected: No Spiritual Healthcare Practices: Alevism Advance Directives: Yes Advance Directives Information Provided: Yes Advance Directives on File: No Advance Directives Date on File: 06/07/21 Do you have thoughts of harming others: None Do you have a plan to hurt others: No Plan Recently lost weight without trying: No Patient : No : No Poor oral hygiene: No service: No Current occupational status: unemployed Meds Allergies Allergy/AdvReac Type Severity Reaction Status Date / Time ibuprofen [IBUPROFEN] Allergy Unknown LIGHTHEADED;FEELS Verified 12/14/20 23:29 LIKE CHEST IS CLOSING IN;CLAUSTROPHOBIC Active Medications: Current Medications Acetaminophen (Acetaminophen 325 Mg Tablet) 650 mg PO Q6H PRN PRN Reason: Pain, Mild (Pain Scale 1-3) Albuterol Sulfate (Albuterol Sulfate 90 Mcg 8 Gm Inhaler) 2 puff INHALE Q6H PRN PRN Reason: wheezing Albuterol/Ipratropium (Albuterol/Iprat 2.5/0.5mg 3 Ml Ampul.Neb) 3 ml INHALE RQ6H WHILE AWAKE [facility] Last Admin: 06/07/21 20:29 Dose: 3 ml Documented by: Albuterol/Ipratropium (Albuterol/Iprat 2.5/0.5mg 3 Ml Ampul.Neb) 3 ml INHALE RQ4H PRN PRN Reason: Shortness of Breath/Wheezing Albuterol/Ipratropium (Albuterol/Iprat 2.5/0.5mg 3 Ml Ampul.Neb) 3 ml INHALE Q6H PRN PRN Reason: wheezing Aspirin (Aspirin Enteric Coated 81 Mg Tablet.Dr) 81 mg PO DAILY [facility] Last Admin: 06/07/21 09:00 Dose: 81 mg Documented by: Benzonatate (Benzonatate 100 Mg Capsule) 100 mg PO TID PRN PRN Reason: Cough Last Admin: 06/07/21 19:24 Dose: 100 mg Documented by: Dextrose (Dextrose 50 % 25 Gm/50 Ml Vial) 25 gm IVPUSH Q15M PRN; Protocol PRN Reason: per Hypoglycemia Standing Ord. Enoxaparin Sodium (Enoxaparin Sodium 40 Mg/0.4 Ml Syringe) 40 mg SUBCUT Q24H [facility] Last Admin: 06/07/21 19:23 Dose: 40 mg Documented by: Famotidine (Famotidine 20 Mg Tablet) 20 mg PO DAILY [facility] Last Admin: 06/07/21 09:00 Dose: 20 mg Documented by: Glucose (Glucose Gel 15 Gm Gel..Gram.) 15 gm PO Q15M PRN; Protocol PRN Reason: per Hypoglycemia Standing Ord. Azithromycin 500 mg/ Sodium (Chloride) 250 mls @ 125 mls/hr IV Q24H [facility] Last Infusion: 06/07/21 21:19 Dose: Infused Documented by: Ceftriaxone Sodium 1 gm/ (Sodium Chloride) 50 mls @ 100 mls/hr IV Q24H [facility] Last Infusion: 06/07/21 18:41 Dose: Infused Documented by: Insulin Pump (Subcutaneous Insulin Pump) 1 each SUBCUT QIDACHS [facility]; Protocol Last Admin: 06/07/21 21:46 Dose: 1 each Documented by: Loratadine (Loratadine 10 Mg Tablet) 10 mg PO BID [facility] Last Admin: 06/07/21 19:25 Dose: 10 mg Documented by: Melatonin (Melatonin 3 Mg Tablet) 6 mg PO BEDTIME PRN PRN Reason: Insomnia Methylprednisolone Sodium Succinate (Methylprednisolone Sod Succ 40 Mg/Ml Vial) 40 mg IVPUSH Q8H [facility] Last Admin: 06/07/21 17:09 Dose: 40 mg Documented by: Pharmacy Consult (Consult Rx Perform Med Rec) 1 each MISCELLANE ONCE PRN PRN Reason: Consult order Senna (Sennosides 8.6 Mg Tablet) 17.2 mg PO BEDTIME PRN PRN Reason: Constipation Sodium Chloride (0.9 % Sodium Chloride Flush 3 Ml Syringe) 3 ml IVFLUSH QSHIFT [facility] Last Admin: 06/07/21 21:47 Dose: 3 ml Documented by: Sumatriptan Succinate (Sumatriptan Succinate 50 Mg Tablet) 50 mg PO DAILY MRX1 PRN PRN Reason: Headache Last Admin: 06/07/21 19:24 Dose: 50 mg Documented by: Home Medications Medication Instructions Recorded Confirmed Last Taken Type albuterol sulfate 90 mcg/actuation 2 puff INHALATION Q6H PRN 10/04/20 06/06/21 06/05/21 History aerosol inhaler aspirin 81 mg tablet,delayed 81 mg PO DAILY 10/04/20 06/06/21 06/05/21 History release fluticasone propionate 220 2 puff PO BID 10/04/20 06/06/21 06/05/21 History mcg/actuation HFA aerosol inhaler (Flovent HFA) ipratropium 0.5 mg-albuterol 3 mg 1 vial INHALATION Q6H PRN 10/04/20 06/06/21 06/05/21 History (2.5 mg base)/3 mL nebulization soln subcutaneous insulin pump 10/04/20 05/07/21 Unknown History sumatriptan succinate 50 mg tablet 50 mg PO DAILY MRX1 PRN MDD 2 10/04/20 06/06/21 06/05/21 History TABLETS cetirizine 10 mg tablet 1 tab PO BID 06/06/21 06/06/21 06/05/21 History famotidine 20 mg tablet (Pepcid) 20 mg PO DAILY 06/06/21 06/06/21 06/05/21 History insulin lispro 100 unit/mL See Rx Instructions .ROUTE .COMPLEX 06/06/21 06/06/21 06/05/21 History subcutaneous solution (Humalog U-100 Insulin) Physical Exam Vital Signs: Vital Signs: Last Vital Signs Temp 97.9 F 06/07/21 20:00 Pulse 788 H 06/07/21 20:30 Resp 17 06/07/21 20:00 BP 142/74 H 06/07/21 20:00 Pulse Ox 94 06/07/21 20:00 Oxygen Flow Rate 2 06/06/21 15:59 BMI result Body Mass Index 33.7 Const: General: cooperative Eyes: General: appearance normal, both eyes and all related structures Resp: Effort & Inspection: normal respiratory effort Cardio: Rate: regular rate Rhythm: regular rhythm GI: Palpation (GI): Soft to palpation and nontender Skin: General skin exam: no rashes or lesions noted Results Labs CBC & Chem 7: 06/07/21 07:28 06/07/21 07:28 Labs: Short CBC 06/07/21 Range/Units 07:28 WBC 10.2 (4.8-10.8) X10*3/uL Hgb 12.3 (12.0-16.0) g/dl Hct 37.4 (37.0-47.0) % Plt Count 284 (160-400) X10*3/uL BMP 06/07/21 07:28 Sodium 136 Potassium 4.7 Chloride 97 Carbon Dioxide 31 H BUN 9 Creatinine 0.57 Calcium 8.2 L Microbiology Microbiology Results: Microbiology 06/06/21 18:49 Blood - Venous Blood Culture - Preliminary No growth after 24 hours. 06/06/21 18:43 Blood - Venous Blood Culture - Preliminary No growth after 24 hours. Assessment and Plan (1) Community acquired pneumonia: Qualifiers: Laterality: unspecified laterality Qualified Code(s): J18.9 - Pneumonia, unspecified organism Status: Acute There is some possible CAP such as strep pneumonia or atypical Most likely this is cotton lung from snorting heroin as she doesnt vape (2) Hypoxia: Status: Acute Ceftriaxone and Zmax for total 8 days ,change to po Check HIV test Stop heroin snorting
[2021-06-08] VITALS: BP 143/79; PULSE 88; RESP 17; TEMP 36.3; O2SAT 94
[2021-06-08] MEDS: methylPREDNISolone Sod Succ 40 MG/ML VIAL IVPUSH ×2 (01:50→08:45)
[2021-06-08] MEDS: Albuterol/Iprat 2.5/0.5MG 3 ML AMPUL.NEB INHALE ×2 (02:09→09:11)
[2021-06-08 02:10] VITALS: PULSE 100; O2SAT 91
[2021-06-08] MEDS: Melatonin 3 MG TABLET 6 MG PO (02:54)
[2021-06-08] MEDS: Benzonatate 100 MG CAPSULE PO (03:06)
[2021-06-08] MEDS: SUMAtriptan succinate 50 MG TABLET PO (03:06)
[2021-06-08 04:00] VITALS: BP 147/73; PULSE 67; RESP 17; TEMP 36.6; O2SAT 96
[2021-06-08 07:17] VITALS: BP 128/64; PULSE 76; RESP 20; TEMP 36.3; O2SAT 93
[2021-06-08 07:45] LABS: Glucose, Whole Blood 194 mg/dL (60-115)
[2021-06-08] MEDS: Aspirin Enteric Coated 81 MG TABLET.DR PO (08:45)
[2021-06-08] MEDS: Loratadine 10 MG TABLET PO (08:45)
[2021-06-08] MEDS: Famotidine 20 MG TABLET PO (08:45)
[2021-06-08] MEDS: 0.9 % Sodium Chloride Flush 3 ML SYRINGE IVFLUSH (08:46)
[2021-06-08] MEDS: Subcutaneous Insulin Pump 1 EACH SUBCUT (08:53)
[2021-06-08 11:13] VITALS: BP 129/68; PULSE 76; RESP 21; TEMP 36.6; O2SAT 93
--- NOTE | 2021-06-08 11:23 | MHC.RECOVRN ---
Met with pt to f/u regarding recovery supports and resources. Pt not interested in this discussion, focused on discharging today. Pt often saying I want to go home. I don't want to be here. I have things to do. Pt provided with written information about community resources, declines referrals at this time. Pt also declines continuing methadone, states The 5 mg didn't do anything, I'm not even going to bother. Discussed with Danette Babb APRN. Pt provided with t/w contact information if questions or concerns arise.
[2021-06-08 11:34] LABS: Glucose, Whole Blood 238 mg/dL (60-115)
--- NOTE | 2021-06-08 12:10 | P.DS_ITS ---
DS: Providers Provider Date of Service: 06/08/21 Date of admission: 06/06/21 19:43 Primary care physician: Nilton Parikh MD Consults: 06/06/21 19:42 Consult to Infectious Diseases Routine Consulting Provider: Manasa Otero Reason for consultation: multifocal PNA 06/06/21 19:46 Addiction Medicine Routine Consulting Provider: Danette Babb Reason for consultation: opiate abuse 06/08/21 07:52 Consult to Pulmonology Routine Consulting Provider: Inderjit Richmond Reason for consultation: abnormal ct chest/hypoxia Has provider been notified: No DS: Diagnosis Discharge Diagnosis (1) Community acquired pneumonia: Status: Acute (2) Hypoxia: Status: Acute DS: Summary Hospital Course Hospital Course: Chief Complaint:? shortness of breath ?46-year-old female with a past medical history of type 1 diabetes on insulin pump, opiate abuse, migraine headaches presented to the hospital with a chief complaint of shortness of breath.? Patient reported that over the past 1-2 days she has been having shortness of breath which has been gradually worsening; worsens on exertion.? Denies any orthopnea.? Denies any fever chills .? Complains of cough.? Denies any sputum production.? Denies any chest pain palpitations.? As the symptoms were not improving decided to come to the ER for further evaluation.? Review of all other systems is negative except mentioned above ER course: Per ER team patient noted to be mildly hypoxic; placed on supplemental oxygen.? Not in respiratory distress; coarse breath sounds with rales; chest x-ray showed possible multifocal pneumonia; CT chest was done.? COVID-19 negative.? Respiratory syncytial virus negative.? Patient given ceftriaxone azithromycin.? Admitted to the hospital for further management. Hospital course 46-year-old female with a past medical history of type 1 diabetes on insulin pump, opiate abuse, migraine headaches presented to the hospital with a chief complaint of shortness of breath, Noted to have multifocal pneumonia.? Admitted for further management.? Acute hypoxic respiratory failure due to Community-acquired pneumonia and asthma exacerbation patient treated with IV ceftriaxone and azithromycin with good response, CT chest demonstrated multifocal ground-glass infiltrate therefore evaluated by drafter construction and felt that CT findings are likely secondary to underlying polysubstance abuse, patient had similar mild findings in prior CT chest, therefore recommended short course of prednisone 40 mg for 7 days, since patient is clinically doing better therefore will discharge home on by mouth antibiotics to finish 7 day course of antibiotics COVID-19 RSV negative.? In regard to Type 1 diabetes she will be continue on home insulin pump History of polysubstance abuse patient seen by Addiction Team patient decline methadone Tobacco use disorder counseling done patient declined nicotine patch Time Spent with Patient Time attestation: Total time spent providing and/or coordinating discharge services: Discharge coordination time: Greater than 30 minutes Quality: Stroke Does the patient have a stroke diagnosis?: No Physical Exam Vital Signs: Vital Signs: Last Vital Signs Temp 97.8 F 06/08/21 11:13 Pulse 76 06/08/21 11:13 Resp 21 H 06/08/21 11:13 BP 129/68 06/08/21 11:13 Pulse Ox 93 06/08/21 11:13 Oxygen Flow Rate 2 06/06/21 15:59 BMI result Body Mass Index 33.7 General awake alert x3,? acute distress.? Neck no JVD. CVS? regular rate rhythm, Respiratory lungs coarse breath sound, few scattered rhonchi, no respiratory distress, no use of accessory muscles Gastrointestinal abdomen soft, nontender, bowel sounds audible Extremities no edema. Neuro nonfocal Skin no rash Psych appropriate affect DS: Data Data Completed and Pending Labs on day of discharge: Laboratory Results - last 24 hr 06/07/21 06/07/21 06/08/21 16:19 21:28 07:20 POC Glucose 294 H 214 H 194 H 06/08/21 11:15 POC Glucose 238 H Preliminary micro results at discharge 06/06/21 18:49 Blood Culture - Preliminary Blood - Venous No growth after 24 hours. 06/06/21 18:43 Blood Culture - Preliminary Blood - Venous No growth after 24 hours. Discharge Plan Discharge Patient Disposition: Home, Self-Care Discharge Diagnosis: Acute on chronic hypoxic respiratory failure Community-acquired pneumonia Mild asthma exacerbation Opiate abuse disorder Referrals: Nilton Parikh MD [Primary Care Provider] - 1 Week Discharge Medications: New prednisone 20 mg tablet 40 mg PO DAILY Qty: 30 RF: 0 cefuroxime axetil 500 mg tablet 500 mg PO Q12H 7 Days Qty: 14 RF: 0 azithromycin 500 mg tablet 500 mg PO DAILY 3 Days Qty: 3 RF: 0 benzonatate 100 mg Capsule 100 mg PO TID PRN (Reason: Cough) Qty: 21 RF: 0 Continued ipratropium-albuterol 0.5 mg-3 mg(2.5 mg base)/3 mL solution for nebulization 1 vial inhalation Q6H PRN (Reason: wheezing) RF: 0 Flovent HFA 220 mcg/actuation HFA aerosol inhaler 2 puff PO BID RF: 0 albuterol sulfate 90 mcg/actuation HFA aerosol inhaler 2 puff inhalation Q6H PRN (Reason: wheezing) RF: 0 sumatriptan succinate 50 mg Tablet 50 mg PO DAILY MRX1 MDD 2 TABLETS PRN (Reason: Headache) RF: 0 aspirin 81 mg Tablet,Delayed Release (Dr/Ec) 81 mg PO DAILY RF: 0 lorazepam [Ativan] 1 mg tablet 1 mg PO BID PRN (Reason: anxiety) Qty: 14 RF: 0 cetirizine 10 mg tablet 1 tab PO BID RF: 0 insulin lispro [Humalog U-100 Insulin] 100 unit/mL solution See Rx Instructions .ROUTE .COMPLEX RF: 0 famotidine [Pepcid] 20 mg Tablet 20 mg PO DAILY RF: 0 No Action (DME) subcutaneous insulin pump Misc MISCELLANEOUS RF: 0 Discharge Orders: Discharge Order (Routine); Ordered 06/08/21 Ordered By: Antonio Catherine Diet: diabetic diet Activity on Discharge: As tolerated Stand Alone Forms: Patient Portal Discharge page Care Plan Goals: Acute on chronic hypoxic respiratory failure, bilateral pneumonia/abnormal CT lung due to substance abuse, take prednisone 40 mg daily for 1 week followed by prednisone 20 mg daily for 7 more days, follow-up with primary care physician for further taper Health Concerns: Take all medications as prescribed strongly recommended to abstain from smoking and illicit drug use Plan of Treatment: Follow-up with primary care physician in 1 week, outpatient pulmonology referral Assessment: As above Discharge Date/Time: 06/08/21 13:14
--- NOTE | 2021-06-08 12:18 | MHC.CM.PN ---
PT DISCHARGED HOME W/NO SERVICES, PT WILL TAKE [facility] – [place] [place] [facility] AT 1:45PM
[2021-06-08] MEDS: Naloxone HCl Nasal TAKE HOME 4 MG SPRAY NOSTRILALT (12:33)
--- NOTE | 2021-06-08 13:30 | P.CONPL_ITS ---
History of Present Illness History of Present Illness Consult date: 06/08/21 Requesting physician: Antonio Catherine Chief complaint: Multifocal pneumonia Narrative: 46-year-old lady, active 20+ pack-year smoker, with underlying history of diabetes mellitus, asthma, polysubstance abuse, per patient on supplemental oxygen from her primary care for unclear etiology, admitted on 06/06/2021 with slowly worsening progressive dyspnea. CT chest was obtained in showed diffuse bilateral ground-glass infiltrates and peribronchovascular distribution. Patient was started on empiric antibiotics and systemic glucocorticoids and experience symptomatic improvement. Pulmonary consultation was requested. Patient denies any productive cough, fevers, or significant dyspnea. Patient states that she was previously a told she has cardiomyopathy. On outpatient basis she is using albuterol MDI. Review of Systems Constitutional: Constitutional: Denies daytime sleepiness, Denies excessive sweating, Denies fatigue, Denies fever(s), Denies lethargy, Denies malaise, Dario es night sweats, Denies snoring and Denies weight loss Eyes: Eyes: Denies blurry vision and Denies itchy eyes ENT: Denies nasal congestion, Denies post nasal drip, Denies sinus pain, Denies sinus pressure and Denies other ( Thrush) Cardiovascular: Cardiovascular: Denies chest pain, Denies pedal edema, Reports dyspnea, Denies orthopnea and Denies paroxysmal nocturnal dyspnea Respiratory: Respiratory: Denies cough, Denies hemoptysis, Denies excessive phlegm production, Reports dyspnea, Denies snoring and Denies wheezing Gastrointestinal: Gastrointestinal: Denies abdominal pain and Denies heartburn Musculoskeletal: Musculoskeletal: Denies myalgias, Denies arthralgias and Denies joint swelling Integumentary/Breasts: Skin/Breast: Denies rash Neurologic: Denies memory loss and Denies seizure-like activity Psychiatric: Psychiatric: Denies abnormal sleep pattern, Denies anxiety and Denies memory loss Endocrine: Endocrine: Denies excessive sweating, Denies fatigue and Denies heat intolerance Hematologic/Lymphatic: Hematologic/Lymphatic: Denies easy bruising Allergic/Immunologic: Allergic/Immunologic: Denies itchy eyes, Denies seasonal rhinorrhea and Denies wheezing PMFSH Past Medical History Medical History Asthma Asthma Diabetes Diabetic acetonemia Drug abuse in remission Drug overdose Hypercapnic respiratory failure, chronic Moderate obesity Pneumonia Pneumonia Post-tubal ligation syndrome Transaminitis Family History Family history: reviewed and not pertinent Social History Social History Household Members: Significant Other Household Members Other:: 1 Housing: House Do you presently have visiting nurse or other home services: No Patient Tobacco Use Status: Current everyday Tobacco user Tobacco use type: Cigarette Cigarette Packs Per Day: 1 Cigarettes Per Day: 20 Years Smoked: 20 e-Cigarette/Vaping Use: Never Used Second Hand Smoke Exposure: Yes Substance Use Type: Heroin Advance Directives Date on File: 06/07/21 service: No Current occupational status: unemployed Meds Allergies Allergy/AdvReac Type Severity Reaction Status Date / Time ibuprofen [IBUPROFEN] Allergy Unknown LIGHTHEADED;FEELS Verified 12/14/20 23:29 LIKE CHEST IS CLOSING IN;CLAUSTROPHOBIC Home Medications Medication Instructions Recorded Confirmed Last Taken Type albuterol sulfate 90 mcg/actuation 2 puff INHALATION Q6H PRN 10/04/20 06/06/21 06/05/21 History aerosol inhaler aspirin 81 mg tablet,delayed 81 mg PO DAILY 10/04/20 06/06/21 06/05/21 History release fluticasone propionate 220 2 puff PO BID 10/04/20 06/06/21 06/05/21 History mcg/actuation HFA aerosol inhaler (Flovent HFA) ipratropium 0.5 mg-albuterol 3 mg 1 vial INHALATION Q6H PRN 10/04/20 06/06/21 06/05/21 History (2.5 mg base)/3 mL nebulization soln subcutaneous insulin pump 10/04/20 05/07/21 Unknown History sumatriptan succinate 50 mg tablet 50 mg PO DAILY MRX1 PRN MDD 2 10/04/20 06/06/21 06/05/21 History TABLETS cetirizine 10 mg tablet 1 tab PO BID 06/06/21 06/06/21 06/05/21 History famotidine 20 mg tablet (Pepcid) 20 mg PO DAILY 06/06/21 06/06/21 06/05/21 History insulin lispro 100 unit/mL See Rx Instructions .ROUTE .COMPLEX 06/06/21 06/06/21 06/05/21 History subcutaneous solution (Humalog U-100 Insulin) Physical Exam Vital Signs: Vital Signs: Last Vital Signs Temp 97.8 F 06/08/21 11:13 Pulse 76 06/08/21 11:13 Resp 21 H 06/08/21 11:13 BP 129/68 06/08/21 11:13 Pulse Ox 93 06/08/21 11:13 Oxygen Flow Rate 2 06/06/21 15:59 BMI result Body Mass Index 33.7 Const: General: no acute distress, alert and awake Eyes: Sclerae: sclerae normal EOM: EOMs intact bilaterally Neck: Neck: Yes no lymphadenopathy, Yes trachea midline and Yes supple Resp: Effort & Inspection: normal respiratory effort and no respiratory distress Auscultation: clear to auscultation bilaterally Cardio: Rate: regular rate Rhythm: regular rhythm Heart sounds: no gallops, no murmurs and no rubs GI: Palpation (GI): Soft to palpation and Other GI palpation findings present ( Nontender) Auscultation: normal bowel sounds Extrem: General: No clubbing, No cyanosis and Yes pedal edema ( Trace bilateral) Results Laboratory Findings CBC and BMP: 06/07/21 07:28 06/07/21 07:28 Abnormal lab findings: Abnormal Labs 06/06/21 06/06/21 06/06/21 16:40 16:40 16:40 WBC 16.6 H RBC 4.09 L Immature Gran % (Auto) 0.5 H Neut % (Auto) 78.0 H Lymph % (Auto) 11.[address] [place] % (Auto) Lymph # (Auto) [place] # (Auto) 1.7 H Abs Immat Gran (auto) 0.09 H Absolute Neuts (auto) 12.9 H Chloride 95 L Carbon Dioxide 32 H POC Glucose Random Glucose 247 H Calcium 8.3 L D B-Natriuretic Peptide 191 H 06/06/21 06/07/21 06/07/21 22:05 07:28 07:28 WBC RBC 4.04 L Immature Gran % (Auto) 1.1 H Neut % (Auto) 89.0 H Lymph % (Auto) 8.[address] [place] % (Auto) 1.3 L Lymph # (Auto) 0.[address] [place] # (Auto) Abs Immat Gran (auto) 0.11 H Absolute Neuts (auto) 9.1 H Chloride Carbon Dioxide 31 H POC Glucose 212 H Random Glucose 156 H Calcium 8.2 L B-Natriuretic Peptide 06/07/21 06/07/21 06/07/21 07:35 11:06 16:19 WBC RBC Immature Gran % (Auto) Neut % (Auto) Lymph % (Auto) [place] % (Auto) Lymph # (Auto) [place] # (Auto) Abs Immat Gran (auto) Absolute Neuts (auto) Chloride Carbon Dioxide POC Glucose 177 H 316 H 294 H Random Glucose Calcium B-Natriuretic Peptide 06/07/21 06/08/21 06/08/21 21:28 07:20 11:15 WBC RBC Immature Gran % (Auto) Neut % (Auto) Lymph % (Auto) [place] % (Auto) Lymph # (Auto) [place] # (Auto) Abs Immat Gran (auto) Absolute Neuts (auto) Chloride Carbon Dioxide POC Glucose 214 H 194 H 238 H Random Glucose Calcium B-Natriuretic Peptide Microbiology: Microbiology 06/06/21 18:49 Blood - Venous Blood Culture - Preliminary No growth after 24 hours. 06/06/21 18:43 Blood - Venous Blood Culture - Preliminary No growth after 24 hours. Assessment and Plan (1) Abnormal CT scan, chest: Status: Acute Impression: 46-year-old lady with underlying polysubstance abuse admitted with slowly worsening dyspnea, treated for community-acquired pneumonia and asthma exacerbation. On review, CT chest demonstrates multifocal ground- glass infiltrates with no significant lower extremity edema of productive cough Likely secondary to underlying polysubstance abuse with finding similar to CT chest of patients actively using heroinor cocaine. Recommendation: Agree with brief prednisone course ( 40 mg daily for 5-7 days) for likely underlying polysubstance abuse induced ground-glass infiltrates. Procedures Date of Service Date of Service: 06/08/21
== END 2021-06-08 13:14 | disposition home or self-care (01) | DRG 139 ==
LOC: HO.ED 19:32 → HO.EDOVER 19:55 → HO.S3 06-07 09:46
PROVIDERS: Admitting Provider Hospitalist; Emergency Provider Emergency Medicine; PCP Family Medicine; Visit Provider Hospitalist
DX: J18.9 Pneumonia, unspecified organism (principal); J96.01 Acute respiratory failure with hypoxia; J45.901 Unspecified asthma with (acute) exacerbation; E10.9 Type 1 diabetes mellitus without complications; D72.829 Elevated white blood cell count, unspecified; F11.10 Opioid abuse, uncomplicated; F17.210 Nicotine dependence, cigarettes, uncomplicated; Z20.822 Contact with and (suspected) exposure to COVID-19; Z99.81 Dependence on supplemental oxygen; Z71.6 Tobacco abuse counseling; Z79.4 Long term (current) use of insulin; Z79.82 Long term (current) use of aspirin; Z79.899 Other long term (current) drug therapy
CPT/HCPCS: 0241U; 36415; 71046; 71250; 80048; 82947; 83605; 83880; 84484; 85025; 87040; 93005; 94640; 96365; 96367; 99285; J0456; J0696; J1650; J2270; J2920; J8540

== ENCOUNTER 2021-06-27 18:54 | Emergency (ER) | payer OTHER, SELFPAY ==
[2021-06-27 19:10] VITALS: BP 142/90; PULSE 84; O2SAT 97
== END 2021-06-27 22:41 | disposition left against medical advice (07) ==
PROVIDERS: Emergency Provider Emergency Medicine
DX: R11.2 Nausea with vomiting, unspecified (principal); R06.02 Shortness of breath

== ENCOUNTER 2021-09-29 00:28 | Emergency (ER) | payer OTHER, SELFPAY ==
--- NOTE | ~2021-09-29 | CT_ITS ---
EXAMINATION: CT ABDOMEN AND PELVIS WITH CONTRAST CLINICAL INFORMATION: Diffuse abdominal pain COMPARISON: 10/04/2020 and 06/22/2018. TECHNIQUE: Multidetector volumetric images were obtained from the superior aspect of the liver through the pubic symphysis following administration 85 mL of Omnipaque 350 intravenous contrast. Sagittal and coronal reformatted images were obtained on the technologist's workstation. Oral contrast: No This CT examination was performed using dose optimization techniques as appropriate, variously including the following: *Automated exposure control *Adjustment of mA and/or kV according to patient size (this includes techniques or standardized protocols for targeted exams where dose is matched to indication/reason for exam; i.e. extremities or head) *Use of iterative reconstruction technique DLP: 501 mGy-cm FINDINGS: LUNG BASES: Mild bronchial thickening. Scattered endobronchial secretions. Scattered areas of tree-in-bud nodularity, particularly within the left lower lobe. LIVER, GALLBLADDER, AND BILIARY TREE: The liver is normal in size, shape, and attenuation. There is a 0.7 cm hypodensity within the medial segment of liver, which is too small to characterize, not clearly evident on the previous examination which was unenhanced, or examination from 06/22/2018. No intra or extrahepatic biliary ductal dilatation is present. Gallbladder unremarkable. PANCREAS: Atrophic. No pancreatic mass or inflammation. SPLEEN: Unremarkable. ADRENAL GLANDS: Unremarkable. KIDNEYS AND URETERS: The kidneys are normal in size, shape, and attenuation. No hydronephrosis, hydroureter, or calculi seen. No perinephric stranding. BLADDER: Unremarkable. GASTROINTESTINAL TRACT: Stomach and small bowel unremarkable. Colon is underdistended, limiting assessment. No definite thickening. No perienteric inflammation. Normal appendix. ABDOMINAL WALL: Small fat-containing umbilical hernia without inflammation. LYMPH NODES: Normal. VASCULAR: Unremarkable. PELVIC VISCERA: Decreased size of the fibroid along the posterior uterus. No adnexal abnormalities. OSSEOUS STRUCTURES: Unremarkable. CT/CT abdomen pelvis w con IMPRESSION: * No definite etiology for the patient's abdominal pain is identified. * The colon is underdistended limiting assessment. Cannot exclude mild proctitis or colitis. * Nonspecific 0.7 cm hypodensity within the medial segment of liver, too small to characterize. Mild diffuse bronchial wall thickening without bronchiectasis. * Scattered tree-in-bud nodular opacities within the lower lungs bilaterally compatible with mild infective bronchiolitis. Fleischner guidelines were followed.
[2021-09-29 00:36] VITALS: BP 104/63; BP 139/78; PULSE 101; PULSE 97; RESP 18; TEMP 36.9; O2SAT 96; BMI 32.3
--- NOTE | 2021-09-29 00:49 | ED_ITS ---
HPI - General Adult General Chief complaint: General Medical Stated complaint: hyperglycemia Time Seen by Provider: 09/29/21 00:37 Source: patient Mode of arrival: EMS History of Present Illness HPI narrative: 46-year-old female who reports that she initially started with suprapubic pain and significant burning with foul smell on urination but not associated with any back pain or diarrhea and states that her LMP was 1 week ago. She otherwise denies any fever, chills but states that she has had multiple episodes of nausea and vomiting but denies any new cough, sore throat, shortness of breath (but does use home oxygen at 2 L). Related Data Home Medications Medication Instructions Recorded Confirmed albuterol sulfate 90 mcg/actuation 2 puff INHALATION Q6H PRN 10/04/20 06/06/21 aerosol inhaler aspirin 81 mg tablet,delayed 81 mg PO DAILY 10/04/20 06/06/21 release fluticasone propionate 220 2 puff PO BID 10/04/20 06/06/21 mcg/actuation HFA aerosol inhaler (Flovent HFA) ipratropium 0.5 mg-albuterol 3 mg 1 vial INHALATION Q6H PRN 10/04/20 06/06/21 (2.5 mg base)/3 mL nebulization soln subcutaneous insulin pump 10/04/20 05/07/21 sumatriptan succinate 50 mg tablet 50 mg PO DAILY MRX1 PRN MDD 2 10/04/20 06/06/21 TABLETS cetirizine 10 mg tablet 1 tab PO BID 06/06/21 06/06/21 famotidine 20 mg tablet (Pepcid) 20 mg PO DAILY 06/06/21 06/06/21 insulin lispro 100 unit/mL See Rx Instructions .ROUTE .COMPLEX 06/06/21 06/06/21 subcutaneous solution (Humalog U-100 Insulin) Previous Rx's Medication Instructions Recorded lorazepam 1 mg tablet (Ativan) 1 mg PO BID PRN #14 tab 12/15/20 azithromycin 500 mg tablet 500 mg PO DAILY 3 Days #3 tab 06/08/21 benzonatate 100 mg capsule 100 mg PO TID PRN #21 cap 06/08/21 cefuroxime axetil 500 mg tablet 500 mg PO Q12H 7 Days #14 tab 06/08/21 prednisone 20 mg tablet 40 mg PO DAILY #30 tab 06/08/21 ondansetron 4 mg disintegrating 4 mg PO Q6H PRN #10 tab 09/29/21 tablet Allergies Allergy/AdvReac Type Severity Reaction Status Date / Time ibuprofen [IBUPROFEN] Allergy Unknown LIGHTHEADED;FEELS Verified 06/09/21 14:03 LIKE CHEST IS CLOSING IN;CLAUSTROPHOBIC Review of Systems Review of Systems: Pertinent positives and negatives as stated in HPI 10 point review of systems is otherwise negative. [facility] Past Medical History Source: nursing notes reviewed Medical History Asthma Asthma Diabetes Diabetic acetonemia Drug abuse in remission Drug overdose Hypercapnic respiratory failure, chronic Hypoxia Moderate obesity Opioid use disorder Pneumonia Pneumonia Post-tubal ligation syndrome Transaminitis Social History Social History Household Members: Significant Other Household Members Other:: 1 Housing: House Do you presently have visiting nurse or other home services: No Patient Tobacco Use Status: Current everyday Tobacco user Tobacco use type: Cigarette Cigarette Packs Per Day: 1 Cigarettes Per Day: 20 Years Smoked: 20 e-Cigarette/Vaping Use: Never Used Second Hand Smoke Exposure: Yes Substance Use Type: Heroin Advance Directives: No Advance Directives Date on File: 06/07/21 service: No Current occupational status: unemployed Physical Exam ED Vital Signs: Vital Signs - 24 hr 09/29/21 00:36 Temperature 98.4 F Pulse Rate 97 Respiratory Rate 18 Blood Pressure 104/63 Pulse Oximetry 96 BMI result Body Mass Index 32.3 VITAL SIGNS: Reviewed. GENERAL: Well developed, well nourished, in no acute distress. HEAD: Normocephalic/atraumatic EYES: PERRLA, EOMI OROPHARYNX: no oral lesions noted, posterior pharynx clear LUNGS: Normal breath sounds. No adventitious sounds or accessory muscle use. SpO2<96> room air CARDIOVASCULAR: Regular rate and rhythm without noted murmurs, no JVD or lower extremity edema. ABDOMEN: Soft, diffuse discomfort,, non-distended with bowel sounds, insulin pump noted to abdomen and function in SKIN: Inspection of the skin reveals no rashes NEUROLOGIC: Alert and oriented x 4. Strength and sensation to light touch were grossly intact x 4. Course Course Course Narrative: 46-year-old female with history and clinical presentation suspicious for UTI, she was started on Macrobid and has had 1 does, however she does not have urinalysis to demonstrate UTI. Will obtain basic labs as well as urinalysis. Review of all investigations negative for acute findings and suspect this patient is likely suffering from a gastroenteritis and showed significant improvement on re-evaluation with the IV fluids as well as antiemetics. Patient otherwise has no findings to suggest HHS or DKA. Although patient is noted to have an elevated sugar level she is tolerating oral intake and will be discharged home with a prescription for antinausea medication and states that she will administer insulin via her pump. Medical Decision Making Lab Data Result diagrams: 09/29/21 01:23 09/29/21 02:59 Labs: Lab Results 09/29/21 09/29/21 09/29/21 Range/Units 01:23 01:23 01:28 WBC 22.1 H (4.8-10.8) X10*3/uL RBC 4.82 (4.20-5.50) X10*6/uL Hgb 14.4 (12.0-16.0) g/dl Hct 41.5 (37.0-47.0) % MCV 86.1 (80.0-98.0) fL MCH 29.9 (27.0-33.0) pg MCHC 34.7 (31.0-35.0) g/dl RDW 13.3 (11.0-16.0) % Plt Count 277 (160-400) X10*3/uL MPV 11.6 (9.4-12.3) fL Immature Gran % (Auto) 0.4 (0.0-0.4) % Neut % (Auto) 86.0 H (45-73) % Lymph % (Auto) 9.2 L (20-40) % [place] % (Auto) 4.1 (2-11) % Eos % (Auto) 0.1 (0-4) % Baso % (Auto) 0.2 (0-2) % Lymph # (Auto) 2.0 (1.2-4.9) X10*3/uL [place] # (Auto) 0.9 (0.1-1.2) X10*3/uL Eos # (Auto) 0.0 (0.0-0.4) X10*3/uL Baso # (Auto) 0.0 (0.0-0.2) X10*3/uL Abs Immat Gran (auto) 0.09 H (0.00-0.03) X10*3/uL Absolute Neuts (auto) 19.0 H (2.0-8.3) x10*3/uL Absolute Nucleated RBC 0.000 (0.0-0.012) X10*3/uL Nucleated RBC % (auto) 0.0 (0.0-0.2) /100WBC Sodium (135-145) mmol/L Potassium (3.3-5.1) mmol/L Chloride (96-108) mmol/L Carbon Dioxide (22-29) mmol/L Anion Gap (12-20) BUN (9-16) mg/dL Creatinine (0.5-1.4) mg/dL Estim Creat Clear Calc Estimated GFR POC Glucose 584 H* (60-115) mg/dL Random Glucose (60-115) mg/dL Lactic Acid (0.5-2.0) mmol/L Calcium (8.4-10.2) mg/dL Total Bilirubin (0.0-1.0) mg/dL AST (5-31) U/L ALT (0-31) U/L Alkaline Phosphatase (39-117) U/L Total Protein (6.5-8.0) g/dL Albumin (3.5-5.0) g/dL Urine Color YELLOW Urine Appearance CLEAR Urine pH 6.5 (5.0-8.0) Ur Specific [place] <= 1.005 (1.005-1.025) Urine Protein NEG (NEG-TRACE) MG/DL Urine Glucose (UA) >=1000 H (NEG) MG/DL Urine Ketones 5 (NEG) MG/DL Urine Blood NEG (NEG) Urine Nitrite NEG (NEG) Ur Leukocyte Esterase NEG (NEG) Urine RBC 0-2 (0) /HPF Urine WBC 1-4 (0-4) /HPF Ur Squamous Epith Cells TRACE /LPF Urine Bacteria TRACE /LPF Acetone, Qual (Negative) 09/29/21 09/29/21 Range/Units 02:59 02:59 WBC (4.8-10.8) X10*3/uL RBC (4.20-5.50) X10*6/uL Hgb (12.0-16.0) g/dl Hct (37.0-47.0) % MCV (80.0-98.0) fL MCH (27.0-33.0) pg MCHC (31.0-35.0) g/dl RDW (11.0-16.0) % Plt Count (160-400) X10*3/uL MPV (9.4-12.3) fL Immature Gran % (Auto) (0.0-0.4) % Neut % (Auto) (45-73) % Lymph % (Auto) (20-40) % [place] % (Auto) (2-11) % Eos % (Auto) (0-4) % Baso % (Auto) (0-2) % Lymph # (Auto) (1.2-4.9) X10*3/uL [place] # (Auto) (0.1-1.2) X10*3/uL Eos # (Auto) (0.0-0.4) X10*3/uL Baso # (Auto) (0.0-0.2) X10*3/uL Abs Immat Gran (auto) (0.00-0.03) X10*3/uL Absolute Neuts (auto) (2.0-8.3) x10*3/uL Absolute Nucleated RBC (0.0-0.012) X10*3/uL Nucleated RBC % (auto) (0.0-0.2) /100WBC Sodium 130 L (135-145) mmol/L Potassium 4.4 (3.3-5.1) mmol/L Chloride 94 L (96-108) mmol/L Carbon Dioxide 23 (22-29) mmol/L Anion Gap 17 (12-20) BUN 10 (9-16) mg/dL Creatinine 1.02 (0.5-1.4) mg/dL Estim Creat Clear Calc 59.8 Estimated GFR 58 POC Glucose (60-115) mg/dL Random Glucose 637 H* D (60-115) mg/dL Lactic Acid 1.5 (0.5-2.0) mmol/L Calcium 8.8 D (8.4-10.2) mg/dL Total Bilirubin 0.8 (0.0-1.0) mg/dL AST 56 H (5-31) U/L ALT 59 H (0-31) U/L Alkaline Phosphatase 95 (39-117) U/L Total Protein 6.9 (6.5-8.0) g/dL Albumin 3.8 (3.5-5.0) g/dL Urine Color Urine Appearance Urine pH (5.0-8.0) Ur Specific [place] (1.005-1.025) Urine Protein (NEG-TRACE) MG/DL Urine Glucose (UA) (NEG) MG/DL Urine Ketones (NEG) MG/DL Urine Blood (NEG) Urine Nitrite (NEG) Ur Leukocyte Esterase (NEG) Urine RBC (0) /HPF Urine WBC (0-4) /HPF Ur Squamous Epith Cells /LPF Urine Bacteria /LPF Acetone, Qual Small H (Negative) Discharge Plan Discharge Clinical Impression: UTI (urinary tract infection), Hyperglycemia, Gastroenteritis Patient Disposition: Home, Self-Care Instructions: Urinary Tract Infection in Women (DC), Gastroenteritis (ED), Diabetic Hyperglycemia (ED) Additional Instructions: 1. Resume all home medications. 2. Increase your fluid hydration, especially with water. You have been provided with a prescription for antinausea medication. 3. Please complete the entire course of antibiotics that you have been prescribed by your primary care provider. 4. Please follow-up with your primary care provider in the next 1-2 days for re- evaluation. Return to the ER for worsening symptoms. Prescriptions: New ondansetron 4 mg tablet,disintegrating 4 mg PO Q6H PRN (Reason: nausea and vomiting) Qty: 10 0RF No Action ipratropium-albuterol 0.5 mg-3 mg(2.5 mg base)/3 mL solution for nebulization 1 vial inhalation Q6H PRN (Reason: wheezing) 0RF Flovent HFA 220 mcg/actuation HFA aerosol inhaler 2 puff PO BID 0RF albuterol sulfate 90 mcg/actuation HFA aerosol inhaler 2 puff inhalation Q6H PRN (Reason: wheezing) 0RF sumatriptan succinate 50 mg Tablet 50 mg PO DAILY MRX1 MDD 2 TABLETS PRN (Reason: Headache) 0RF aspirin 81 mg Tablet,Delayed Release (Dr/Ec) 81 mg PO DAILY 0RF (DME) subcutaneous insulin pump Misc MISCELLANEOUS 0RF lorazepam [Ativan] 1 mg tablet 1 mg PO BID PRN (Reason: anxiety) Qty: 14 0RF cetirizine 10 mg tablet 1 tab PO BID 0RF insulin lispro [Humalog U-100 Insulin] 100 unit/mL solution See Rx Instructions .ROUTE .COMPLEX 0RF Rx Instructions: INJECT UP TO 80 UNITS ONCE DAY VIA SUBCUTANUOUS INFUSION VIA INSULIN PUMP famotidine [Pepcid] 20 mg Tablet 20 mg PO DAILY 0RF prednisone 20 mg tablet 40 mg PO DAILY Qty: 30 0RF Rx Instructions: Take prednisone 20 mg 2 tabs (40 mg) daily for 1 week, then take prednisone 20 mg daily, further taper per PCP cefuroxime axetil 500 mg tablet 500 mg PO Q12H 7 Days Qty: 14 0RF azithromycin 500 mg tablet 500 mg PO DAILY 3 Days Qty: 3 0RF benzonatate 100 mg Capsule 100 mg PO TID PRN (Reason: Cough) Qty: 21 0RF
[2021-09-29 01:28] LABS: MANUAL DIFF FLAG NO
[2021-09-29 01:29] LABS: Basophils Percent Auto 0.2 % (0-2); Eosinophils Percent Auto 0.1 % (0-4); Hematocrit 41.5 % (37.0-47.0); Hemoglobin 14.4 g/dl (12.0-16.0); Imm Gran Abs Auto 0.09 X10*3/uL (0.00-0.03); Imm Gran Pct Auto 0.4 % (0.0-0.4); Lymphocytes Percent Auto 9.2 % (20-40); Mean Corpuscular HGB Conc 34.7 g/dl (31.0-35.0); Mean Corpuscular Hemoglobin 29.9 pg (27.0-33.0); Mean Corpuscular Volume 86.1 fL (80.0-98.0); Mean Platelet Volume 11.6 fL (9.4-12.3); Monocytes Absolute Auto 0.9 X10*3/uL (0.1-1.2); Monocytes Percent Auto 4.1 % (2-11); Platelet Count 277 X10*3/uL (160-400); Red Blood Count 4.82 X10*6/uL (4.20-5.50); Red Cell Distribution Width 13.3 % (11.0-16.0); White Blood Count 22.1 X10*3/uL (4.8-10.8)
[2021-09-29 01:30] LABS: Appearance Urine CLEAR; Color Urine YELLOW; Glucose Urine UA >=1000 MG/DL (NEG); Leukocyte Esterase Urine NEG (NEG); Nitrite Urine NEG (NEG); PH 6.5 (5.0-8.0); Specific Gravity - Urine <= 1.005 (1.005-1.025); Urine Blood NEG (NEG); Urine Ketones 5 MG/DL (NEG); Urine Protein NEG (NEG-TRACE)
[2021-09-29] MEDS: 0.9 % Sodium Chloride 1,000 ML 999 ML IV ×2 (01:32→04:31)
[2021-09-29] MEDS: ondansetron HCL 4 MG/2 ML VIAL IVPUSH (01:36)
[2021-09-29 01:37] LABS: Glucose, Whole Blood 584 mg/dL (60-115)
[2021-09-29 02:47] LABS: Bacteria Urine TRACE /LPF; RBC Urine 0-2 /HPF (0); Squamous Epithelial Cell Urine TRACE /LPF
[2021-09-29] MEDS: Piperacillin Sodium/Tazobactam 3.375 GM in 0.9 % Sodium Chloride 50 ML IV (03:08)
[2021-09-29] MEDS: fentaNYL citrate/PF 100 MCG/2 ML VIAL 25 MCG IVPUSH (03:14)
[2021-09-29 03:16] LABS: Acetone, serum QL Small (Negative)
[2021-09-29 03:19] LABS: Lactic Acid 1.5 mmol/L (0.5-2.0)
[2021-09-29 03:27] LABS: Glucose Random 637 mg/dL (60-115)
[2021-09-29 03:28] LABS: Alanine Aminotransferase 59 U/L (0-31); Albumin Level 3.8 g/dL (3.5-5.0); Alkaline Phosphatase 95 U/L (39-117); Anion Gap 17 (12-20); Aspartate Amino Transferase 56 U/L (5-31); Bilirubin Total 0.8 mg/dL (0.0-1.0); Blood Urea Nitrogen 10 mg/dL (9-16); Calcium 8.8 mg/dL (8.4-10.2); Carbon Dioxide 23 mmol/L (22-29); Chloride 94 mmol/L (96-108); Creatinine Clr Calc Pharmacy 59.8; Estimated Glomerular Filt Rate 58; Potassium 4.4 mmol/L (3.3-5.1); Sodium 130 mmol/L (135-145); Total Protein 6.9 g/dL (6.5-8.0)
[2021-09-29] MEDS: iohexoL 350 MG/ML 100 ML INFUS..BTL 85 ML IV (03:54)
--- NOTE | 2021-09-29 03:58 | PC.NURSE ---
Pt returns from CT at this time.
--- NOTE | 2021-09-29 05:11 | PC.NURSE ---
Pt tolerating PO challenge. POC 518 mg/dl. MD aware. Pt giving herself insulin via her insulin pump. Pt calling for transportation home, requesting [place] paperwork.
[2021-09-29 05:13] LABS: Glucose, Whole Blood 518 mg/dL (60-115)
== END 2021-09-29 05:21 | disposition home or self-care (01) ==
PROVIDERS: Emergency Provider Student in an Organized Health Care Education/Training Program
DX: N39.0 Urinary tract infection, site not specified (principal); E10.65 Type 1 diabetes mellitus with hyperglycemia; K52.9 Noninfective gastroenteritis and colitis, unspecified; J96.12 Chronic respiratory failure with hypercapnia; F17.200 Nicotine dependence, unspecified, uncomplicated; Z99.81 Dependence on supplemental oxygen; Z96.41 Presence of insulin pump (external) (internal); Z79.4 Long term (current) use of insulin
CPT/HCPCS: 36415; 74177; 80053; 81001; 82009; 82947; 83605; 85025; 87040; 96361; 96374; 96375; 99284; J2405; J2543; J3010; Q9967

== ENCOUNTER 2021-12-22 23:01 | Emergency (ER) | payer OTHER, SELFPAY ==
[2021-12-22 23:06] VITALS: BP 117/76; PULSE 112; RESP 15; TEMP 36.8; O2SAT 96
--- NOTE | 2021-12-22 23:11 | ECG_ITS ---
Test Reason : OVERDOSE Blood Pressure : / mmHG Vent. Rate : 097 BPM Atrial Rate : 097 BPM P-R Int : 134 ms QRS Dur : 078 ms QT Int : 352 ms P-R-T Axes : 064 029 056 degrees QTc Int : 447 ms Normal sinus rhythm Possible Left atrial enlargement Borderline ECG When compared with ECG of 06-JUN-2021 16:31, Borderline criteria for Inferior infarct are no longer Present Referred By: Gris Anne Electronically Signed By:THEODORE JON MD
--- NOTE | 2021-12-22 23:13 | ED_ITS ---
HPI - Overdose General Chief Complaint: Overdose Stated Complaint: Heroin OD, 12mg narcan Time Seen by Provider: 12/22/21 23:10 Source: patient and EMS Mode of arrival: EMS Limitations: no limitations History of Present Illness HPI Narrative: patient comes to the emergency room complaining of an overdose. patient received 12 mg of intranasal Narcan prior to EMS arrival. When patient was found by EMS, she was awake and alert, complaining of diarrhea. Patient states that she has been going through a lot the last few days, her domestic partner is currently hospitalized at [facility]. Patient drank alcohol, used 1 bag of heroin. Patient states that she is being treated for UTI with Macrobid, since then she has been complaining of couple episodes of diarrhea. No vomiting or abdominal pain, no fever or chills. Related Data Home Medications Medication Instructions Recorded Confirmed albuterol sulfate 90 mcg/actuation 2 puff inhalation Q6H PRN wheezing 10/04/20 06/06/21 aerosol inhaler aspirin 81 mg tablet,delayed 81 mg PO DAILY 10/04/20 06/06/21 release fluticasone propionate 220 2 puff PO BID 10/04/20 06/06/21 mcg/actuation HFA aerosol inhaler (Flovent HFA) ipratropium 0.5 mg-albuterol 3 mg 1 vial inhalation Q6H PRN wheezing 10/04/20 06/06/21 (2.5 mg base)/3 mL nebulization soln subcutaneous insulin pump 10/04/20 05/07/21 sumatriptan succinate 50 mg tablet 50 mg PO DAILY MRX1 PRN Headache 10/04/20 06/06/21 cetirizine 10 mg tablet 1 tab PO BID 06/06/21 06/06/21 famotidine 20 mg tablet (Pepcid) 20 mg PO DAILY 06/06/21 06/06/21 insulin lispro 100 unit/mL See Rx Instructions .Route .COMPLEX 06/06/21 06/06/21 subcutaneous solution (Humalog U-100 Insulin) Previous Rx's Medication Instructions Recorded lorazepam 1 mg tablet (Ativan) 1 mg PO BID PRN anxiety #14 tabs 12/15/20 azithromycin 500 mg tablet 500 mg PO DAILY 3 days #3 tabs 06/08/21 benzonatate 100 mg capsule 100 mg PO TID PRN Cough #21 caps 06/08/21 cefuroxime axetil 500 mg tablet 500 mg PO Q12H 7 days #14 tabs 06/08/21 prednisone 20 mg tablet 40 mg PO DAILY #30 tabs 06/08/21 ondansetron 4 mg disintegrating 4 mg PO Q6H PRN nausea and 09/29/21 tablet vomiting #10 tabs Allergies Allergy/AdvReac Type Severity Reaction Status Date / Time ibuprofen [IBUPROFEN] Allergy Unknown LIGHTHEADED;FEELS Verified 12/22/21 23:22 LIKE CHEST IS CLOSING IN;CLAUSTROPHOBIC Review of Systems Review of Systems: Constitutional : No Weight loss, No Fever, No Chills, No Night Sweats, No Fatigue, No Malaise ENT/Mouth : No Hearing loss, No Ear Pain, No Nasal Congestion, No Sinus Pain, No Hoarseness, No sore throat, No Rhinorrhea, No Swallowing Difficulty Eyes: No Eye Pain, No Swelling, No Redness, No Foreign Body, No Discharge, No Vision Changes Cardiovascular : No Chest Pain, No SOB, No Dyspnea on Exertion, No Orthopnea, No Edema, No Palpitations Respiratory : No Cough, No Sputum, No Wheezing, No Smoke Exposure, No Dyspnea Gastrointestinal : No Nausea, No Vomiting, Crusting ofDiarrhea, No Constipation, No abdominal Pain, No Hematochezia, No Melena Genitourinary : complaining of UTI, No Dysuria, No Urinary Frequency, No Hematuria, No Urinary Incontinence, No Urgency, No Flank Pain, No Urinary Flow Changes, No Hesitancy Musculoskeletal : No joint pain, No Myalgias, No Joint Swelling Skin : No Skin Lesions, No rash Neuro : No Weakness, No Numbness, No Paresthesias, No Loss of Consciousness, No Dizziness, No Headache Psych : No Anxiety/Panic, No Depression, No SI/HI/AH/VH, No Social Issues, Heme/Lymph: No Bruising, No Bleeding,No Lymphadenopathy Endocrine : No Polyuria, No Polydipsia, No Temperature Intolerance [facility] Past Medical History Medical History Asthma Asthma Diabetes Diabetic acetonemia Drug abuse in remission Drug overdose Hypercapnic respiratory failure, chronic Hypoxia Moderate obesity Opioid use disorder Pneumonia Pneumonia Post-tubal ligation syndrome Transaminitis Social History Social History Household Members: Significant Other Household Members Other:: 1 Housing: House Do you presently have visiting nurse or other home services: No Alcohol intake: current Alcohol intake frequency: 0-2 drinks per day Alcohol type: hard liquor Patient Tobacco Use Status: Current everyday Tobacco user Tobacco use type: Cigarette Cigarette Packs Per Day: 1 Cigarettes Per Day: 20 Years Smoked: 20 e-Cigarette/Vaping Use: Never Used Second Hand Smoke Exposure: Yes Use of substances other than those prescribed or required for medical reasons: Yes Substance Use Type: Heroin Advance Directives: No Advance Directives Information Provided: Yes Advance Directives Date on File: 06/07/21 service: No Current occupational status: unemployed Physical Exam Vital Signs: Vital Signs: Last Vital Signs Temp 98.3 F 12/22/21 23:06 Pulse 95 12/22/21 23:23 Resp 14 12/22/21 23:23 BP 129/84 12/22/21 23:23 Pulse Ox 100 12/22/21 23:23 O2 Del Method 12/22/21 23:23 Oxygen Flow Rate 2 12/22/21 23:23 BMI result Body Mass Index 32.3 Const: Other: Appearance: Alert. Oriented X3. No acute distress. Eyes: Pupils equal, round and reactive to light. ENT: Pharynx normal. Neck: Normal inspection. Neck supple. No lymph nodes noted. No crepitus CVS: Normal heart rate and rhythm. Pulses normal. Normal S1 and S2 Respiratory: No respiratory distress. Breath sounds normal. No Wheezing. No rales Abdomen: Soft and nontender. No rigidity. No distention. Skin: Skin warm and dry. Normal skin color. Normal skin turgor. Extremities: No lower extremity edema. No Lacerations. No Rash Neuro: Oriented X 3. No motor deficit. No sensory deficit. Moving all extremities. No slurred speech. CN 2 through 12 grossly intact Psych: calm, cooperative, normal affect Course Course Course Narrative: all of the labs are pending, patient receiving fluids and 10 units of insulin. Care team for sude evaluation pending blood glucose for 465 after 10 units of insulin and 1 L of normal saline. Patient is refusing any further care. Patient wants to leave. Patient declined SUDE consult, patient was able to walk to the bathroom with steady gait. Patient is alert and oriented x4, no acute distress. Patient leaving against medical advise MDM - Overdose Lab Data Result diagrams: 12/22/21 23:48 12/23/21 00:15 Labs: Lab Results 12/22/21 12/22/21 12/22/21 Range/Units 23:17 23:30 23:30 WBC (4.8-10.8) X10*3/uL RBC (4.20-5.50) X10*6/uL Hgb (12.0-16.0) g/dl Hct (37.0-47.0) % MCV (80.0-98.0) fL MCH (27.0-33.0) pg MCHC (31.0-35.0) g/dl RDW (11.0-16.0) % Plt Count (160-400) X10*3/uL MPV (9.4-12.3) fL Immature Gran % (Auto) (0.0-0.4) % Neut % (Auto) (45-73) % Lymph % (Auto) (20-40) % [place] % (Auto) (2-11) % Eos % (Auto) (0-4) % Baso % (Auto) (0-2) % Lymph # (Auto) (1.2-4.9) X10*3/uL [place] # (Auto) (0.1-1.2) X10*3/uL Eos # (Auto) (0.0-0.4) X10*3/uL Baso # (Auto) (0.0-0.2) X10*3/uL Abs Immat Gran (auto) (0.00-0.03) X10*3/uL Absolute Neuts (auto) (2.0-8.3) x10*3/uL Absolute Nucleated RBC (0.0-0.012) X10*3/uL Nucleated RBC % (auto) (0.0-0.2) /100WBC Sodium (135-145) mmol/L Potassium (3.3-5.1) mmol/L Chloride (96-108) mmol/L Carbon Dioxide (22-29) mmol/L Anion Gap (12-20) BUN (9-16) mg/dL Creatinine (0.5-1.4) mg/dL Estim Creat Clear Calc Estimated GFR POC Glucose 576 H* (60-115) mg/dL Random Glucose (60-115) mg/dL Calcium (8.4-10.2) mg/dL Magnesium (1.6-2.6) mg/dL Total Bilirubin (0.0-1.0) mg/dL Direct Bilirubin (0.0-0.5) mg/dL AST (5-31) U/L ALT (0-31) U/L Alkaline Phosphatase (39-117) U/L Troponin I High Sens (<3.5-17.0) ng/L Total Protein (6.5-8.0) g/dL Albumin (3.5-5.0) g/dL Urine Color Urine Appearance Urine pH (5.0-8.0) Ur Specific [place] (1.005-1.025) Urine Protein (NEG-TRACE) MG/DL Urine Glucose (UA) (NEG) MG/DL Urine Ketones (NEG) MG/DL Urine Blood (NEG) Urine Nitrite (NEG) Ur Leukocyte Esterase (NEG) Urine RBC (0) /HPF Urine WBC (0-4) /HPF Ur Squamous Epith Cells /LPF Urine Bacteria /LPF Urine Yeast /HPF Urine Opiates Screen POSITIVE H (Not Detect) Urine Fentanyl Screen POSITIVE H (Not Detect) Ur Barbiturates Screen Not Detected (Not Detect) Ur Phencyclidine Scrn Not Detected (Not Detect) Ur Amphetamines Screen Not Detected (Not Detect) U Benzodiazepines Scrn Not Detected (Not Detect) Urine Cocaine Screen POSITIVE H (Not Detect) U Marijuana (THC) Screen Not Detected (Not Detect) Ethyl Alcohol mg/dL Acetone, Qual (Negative) COVID-19 (NUBIA) Negative (Negative) COVID-19 Clin Com See Note 12/22/21 12/22/21 12/22/21 Range/Units 23:30 23:48 23:48 WBC 8.4 (4.8-10.8) X10*3/uL RBC 4.92 (4.20-5.50) X10*6/uL Hgb 14.6 (12.0-16.0) g/dl Hct 42.7 (37.0-47.0) % MCV 86.8 (80.0-98.0) fL MCH 29.7 (27.0-33.0) pg MCHC 34.2 (31.0-35.0) g/dl RDW 13.8 (11.0-16.0) % Plt Count 249 (160-400) X10*3/uL MPV 10.5 (9.4-12.3) fL Immature Gran % (Auto) 0.2 (0.0-0.4) % Neut % (Auto) 75.8 H (45-73) % Lymph % (Auto) 17.2 L (20-40) % [place] % (Auto) 6.5 (2-11) % Eos % (Auto) 0.1 (0-4) % Baso % (Auto) 0.2 (0-2) % Lymph # (Auto) 1.4 (1.2-4.9) X10*3/uL [place] # (Auto) 0.5 (0.1-1.2) X10*3/uL Eos # (Auto) 0.0 (0.0-0.4) X10*3/uL Baso # (Auto) 0.0 (0.0-0.2) X10*3/uL Abs Immat Gran (auto) 0.02 (0.00-0.03) X10*3/uL Absolute Neuts (auto) 6.3 (2.0-8.3) x10*3/uL Absolute Nucleated RBC 0.000 (0.0-0.012) X10*3/uL Nucleated RBC % (auto) 0.0 (0.0-0.2) /100WBC Sodium (135-145) mmol/L Potassium (3.3-5.1) mmol/L Chloride (96-108) mmol/L Carbon Dioxide (22-29) mmol/L Anion Gap (12-20) BUN (9-16) mg/dL Creatinine (0.5-1.4) mg/dL Estim Creat Clear Calc Estimated GFR POC Glucose (60-115) mg/dL Random Glucose (60-115) mg/dL Calcium (8.4-10.2) mg/dL Magnesium (1.6-2.6) mg/dL Total Bilirubin (0.0-1.0) mg/dL Direct Bilirubin (0.0-0.5) mg/dL AST (5-31) U/L ALT (0-31) U/L Alkaline Phosphatase (39-117) U/L Troponin I High Sens < 3.5 (<3.5-17.0) ng/L Total Protein (6.5-8.0) g/dL Albumin (3.5-5.0) g/dL Urine Color YELLOW Urine Appearance CLEAR Urine pH 7.0 (5.0-8.0) Ur Specific [place] <= 1.005 (1.005-1.025) Urine Protein NEG (NEG-TRACE) MG/DL Urine Glucose (UA) >=1000 H (NEG) MG/DL Urine Ketones 5 (NEG) MG/DL Urine Blood NEG (NEG) Urine Nitrite NEG (NEG) Ur Leukocyte Esterase NEG (NEG) Urine RBC 0 (0) /HPF Urine WBC 0 (0-4) /HPF Ur Squamous Epith Cells 2+ /LPF Urine Bacteria NONE /LPF Urine Yeast 1+ /HPF Urine Opiates Screen (Not Detect) Urine Fentanyl Screen (Not Detect) Ur Barbiturates Screen (Not Detect) Ur Phencyclidine Scrn (Not Detect) Ur Amphetamines Screen (Not Detect) U Benzodiazepines Scrn (Not Detect) Urine Cocaine Screen (Not Detect) U Marijuana (THC) Screen (Not Detect) Ethyl Alcohol mg/dL Acetone, Qual (Negative) COVID-19 (NUBIA) (Negative) COVID-19 Clin Com 12/23/21 12/23/21 12/23/21 Range/Units 00:15 00:15 00:15 WBC (4.8-10.8) X10*3/uL RBC (4.20-5.50) X10*6/uL Hgb (12.0-16.0) g/dl Hct (37.0-47.0) % MCV (80.0-98.0) fL MCH (27.0-33.0) pg MCHC (31.0-35.0) g/dl RDW (11.0-16.0) % Plt Count (160-400) X10*3/uL MPV (9.4-12.3) fL Immature Gran % (Auto) (0.0-0.4) % Neut % (Auto) (45-73) % Lymph % (Auto) (20-40) % [place] % (Auto) (2-11) % Eos % (Auto) (0-4) % Baso % (Auto) (0-2) % Lymph # (Auto) (1.2-4.9) X10*3/uL [place] # (Auto) (0.1-1.2) X10*3/uL Eos # (Auto) (0.0-0.4) X10*3/uL Baso # (Auto) (0.0-0.2) X10*3/uL Abs Immat Gran (auto) (0.00-0.03) X10*3/uL Absolute Neuts (auto) (2.0-8.3) x10*3/uL Absolute Nucleated RBC (0.0-0.012) X10*3/uL Nucleated RBC % (auto) (0.0-0.2) /100WBC Sodium 130 L (135-145) mmol/L Potassium 3.9 (3.3-5.1) mmol/L Chloride 97 (96-108) mmol/L Carbon Dioxide 21 L (22-29) mmol/L Anion Gap 16 (12-20) BUN 7 L (9-16) mg/dL Creatinine 0.93 (0.5-1.4) mg/dL Estim Creat Clear Calc 65.5 Estimated GFR > 60 POC Glucose (60-115) mg/dL Random Glucose 597 H* (60-115) mg/dL Calcium 8.5 (8.4-10.2) mg/dL Magnesium 2.1 (1.6-2.6) mg/dL Total Bilirubin 0.7 (0.0-1.0) mg/dL Direct Bilirubin 0.3 (0.0-0.5) mg/dL AST 50 H (5-31) U/L ALT 44 H (0-31) U/L Alkaline Phosphatase 95 (39-117) U/L Troponin I High Sens (<3.5-17.0) ng/L Total Protein 7.1 (6.5-8.0) g/dL Albumin 3.8 (3.5-5.0) g/dL Urine Color Urine Appearance Urine pH (5.0-8.0) Ur Specific [place] (1.005-1.025) Urine Protein (NEG-TRACE) MG/DL Urine Glucose (UA) (NEG) MG/DL Urine Ketones (NEG) MG/DL Urine Blood (NEG) Urine Nitrite (NEG) Ur Leukocyte Esterase (NEG) Urine RBC (0) /HPF Urine WBC (0-4) /HPF Ur Squamous Epith Cells /LPF Urine Bacteria /LPF Urine Yeast /HPF Urine Opiates Screen (Not Detect) Urine Fentanyl Screen (Not Detect) Ur Barbiturates Screen (Not Detect) Ur Phencyclidine Scrn (Not Detect) Ur Amphetamines Screen (Not Detect) U Benzodiazepines Scrn (Not Detect) Urine Cocaine Screen (Not Detect) U Marijuana (THC) Screen (Not Detect) Ethyl Alcohol 80 mg/dL Acetone, Qual Negative Cancelled (Negative) COVID-19 (NUBIA) (Negative) COVID-19 Clin Com Discharge Plan Discharge Clinical Impression: Drug overdose, Acute hyperglycemia Patient Disposition: Left Against Medical Advice Instructions: Adult Overdose (ED), Diabetic Hyperglycemia (ED) Additional Instructions: Please follow-up with your primary care physician tomorrow. If you have any w orsening or new symptoms, please return to the emergency room or call 911 Prescriptions: No Action ipratropium-albuterol 0.5 mg-3 mg(2.5 mg base)/3 mL solution for nebulization 1 vial inhalation Q6H PRN (Reason: wheezing) Flovent HFA 220 mcg/actuation HFA aerosol inhaler 2 puff PO BID albuterol sulfate 90 mcg/actuation HFA aerosol inhaler 2 puff inhalation Q6H PRN (Reason: wheezing) sumatriptan succinate 50 mg Tablet 50 mg PO DAILY MRX1 MDD 2 TABLETS PRN (Reason: Headache) aspirin 81 mg Tablet,Delayed Release (Dr/Ec) 81 mg PO DAILY (DME) subcutaneous insulin pump Misc MISCELLANEOUS lorazepam [Ativan] 1 mg tablet 1 mg PO BID PRN (Reason: anxiety) Qty: 14 0RF ondansetron 4 mg tablet,disintegrating 4 mg PO Q6H PRN (Reason: nausea and vomiting) Qty: 10 0RF cetirizine 10 mg tablet 1 tab PO BID insulin lispro [Humalog U-100 Insulin] 100 unit/mL solution See Rx Instructions .ROUTE .COMPLEX Rx Instructions: INJECT UP TO 80 UNITS ONCE DAY VIA SUBCUTANUOUS INFUSION VIA INSULIN PUMP famotidine [Pepcid] 20 mg Tablet 20 mg PO DAILY prednisone 20 mg tablet 40 mg PO DAILY Qty: 30 0RF Rx Instructions: Take prednisone 20 mg 2 tabs (40 mg) daily for 1 week, then take prednisone 20 mg daily, further taper per PCP cefuroxime axetil 500 mg tablet 500 mg PO Q12H 7 Days Qty: 14 0RF azithromycin 500 mg tablet 500 mg PO DAILY 3 Days Qty: 3 0RF benzonatate 100 mg Capsule 100 mg PO TID PRN (Reason: Cough) Qty: 21 0RF
[2021-12-22 23:22] LABS: Glucose, Whole Blood 576 mg/dL (60-115)
[2021-12-22 23:23] VITALS: BP 118/70; BP 129/84; PULSE 88; PULSE 95; RESP 14; O2SAT 100; O2SAT 97; BMI 32.3
[2021-12-22] MEDS: Loperamide HCl 2 MG CAPSULE 4 MG PO (23:32)
[2021-12-22 23:36] LABS: Appearance Urine CLEAR; Color Urine YELLOW; Glucose Urine UA >=1000 MG/DL (NEG); Leukocyte Esterase Urine NEG (NEG); Nitrite Urine NEG (NEG); Specific Gravity - Urine <= 1.005 (1.005-1.025); Urine Blood NEG (NEG); Urine Ketones 5 MG/DL (NEG); Urine Protein NEG (NEG-TRACE)
[2021-12-22] MEDS: Insulin Regular, Human 100 UNIT/ML 3 ML VIAL 10 UNIT IVPUSH (23:49)
[2021-12-22] MEDS: 0.9 % Sodium Chloride 1,000 ML 999 ML IVCONT (23:51)
[2021-12-22 23:52] LABS: MANUAL DIFF FLAG NO
[2021-12-22 23:54] LABS: Amphetamine Screen Urine Not Detected (Not Detect); Barbiturates, Urine Not Detected (Not Detect); Benzodiazepines Screen Urine Not Detected (Not Detect); COVID-19 Test Negative (Negative); Cannabinoid Screen Urine Not Detected (Not Detect); Cocaine Screen Urine POSITIVE (Not Detect); Fentanyl, urine POSITIVE (Not Detect); Opiate Screen Urine POSITIVE (Not Detect); Phencyclidine Screen Urine Not Detected (Not Detect)
[2021-12-22 23:54] LABS: Basophils Percent Auto 0.2 % (0-2); Eosinophils Percent Auto 0.1 % (0-4); Hematocrit 42.7 % (37.0-47.0); Hemoglobin 14.6 g/dl (12.0-16.0); Imm Gran Abs Auto 0.02 X10*3/uL (0.00-0.03); Imm Gran Pct Auto 0.2 % (0.0-0.4); Lymphocytes Absolute Auto 1.4 X10*3/uL (1.2-4.9); Lymphocytes Percent Auto 17.2 % (20-40); Mean Corpuscular HGB Conc 34.2 g/dl (31.0-35.0); Mean Corpuscular Hemoglobin 29.7 pg (27.0-33.0); Mean Corpuscular Volume 86.8 fL (80.0-98.0); Mean Platelet Volume 10.5 fL (9.4-12.3); Monocytes Absolute Auto 0.5 X10*3/uL (0.1-1.2); Monocytes Percent Auto 6.5 % (2-11); Neutrophils Absolute Auto 6.3 x10*3/uL (2.0-8.3); Neutrophils Percent Auto 75.8 % (45-73); Platelet Count 249 X10*3/uL (160-400); Red Blood Count 4.92 X10*6/uL (4.20-5.50); Red Cell Distribution Width 13.8 % (11.0-16.0); White Blood Count 8.4 X10*3/uL (4.8-10.8)
[2021-12-22 23:58] LABS: RBC Urine 0 /HPF (0); Squamous Epithelial Cell Urine 2+ /LPF; WBC Urine 0 /HPF (0-4)
--- NOTE | 2021-12-23 00:12 | PC.NURSE ---
pt a&ox3, vss, pt reports taking 1 bag of heroin today, given 3x 4mg nasal narcan by neighbor who found pt unresponsive. pt reports that she is on abx for a uti and has been having episodes of diarrhea. labs drawn, 20G IV placed R wrist, ivf running, medicated per provider order. no new orders at this time.
[2021-12-23 00:24] LABS: Troponin-I High Sensitivity < 3.5 ng/L (<3.5-17.0)
[2021-12-23 00:39] LABS: Acetone, serum QL Negative (Negative); Ethanol 80 mg/dL
[2021-12-23 00:48] LABS: Alanine Aminotransferase 44 U/L (0-31); Albumin Level 3.8 g/dL (3.5-5.0); Alkaline Phosphatase 95 U/L (39-117); Anion Gap 16 (12-20); Aspartate Amino Transferase 50 U/L (5-31); Bilirubin Direct 0.3 mg/dL (0.0-0.5); Bilirubin Total 0.7 mg/dL (0.0-1.0); Blood Urea Nitrogen 7 mg/dL (9-16); Calcium 8.5 mg/dL (8.4-10.2); Carbon Dioxide 21 mmol/L (22-29); Chloride 97 mmol/L (96-108); Creatinine Clr Calc Pharmacy 65.5; Estimated Glomerular Filt Rate > 60; Glucose Random 597 mg/dL (60-115); Magnesium 2.1 mg/dL (1.6-2.6); Potassium 3.9 mmol/L (3.3-5.1); Sodium 130 mmol/L (135-145); Total Protein 7.1 g/dL (6.5-8.0)
[2021-12-23 01:01] LABS: Glucose, Whole Blood 465 mg/dL (60-115)
--- NOTE | 2021-12-23 01:11 | MHC.CARE ---
CARE team met with pt for a SUDE. Pt is agitated and states I messed up. I don't need anything . She reports she is under a lot of stress and her fiance is in the hospital. She also reports that her dog is at home with the doors open and people are thieves . Pt declines any services at this time.
[2021-12-23] MEDS: Naloxone HCl Nasal TAKE HOME 4 MG SPRAY NOSTRILALT (01:33)
--- NOTE | 2021-12-23 02:24 | PC.NURSE ---
Pt unable to obtain transportation home. Pt has a working cell phone and has been calling friends/family for a ride. Pt was provided with phone numbers for a taxi and given a bus pass. Pt does not qualify for the shuttle as she lives outside of [place]. Pt assisted to the WR by primary RN, ambulating with a steady gait, speaking full sentences. Approx 30 minutes later, 911 dispatch calling [facility], stating that there is a pt in the WR calling 911 to obtain a ride home. This RN discussing plan for transportation with pt. Pt advised she is unable to call 911 for transportation home. Pt has been provided with multiple resources to obtain transportation home. Security aware.
--- NOTE | 2021-12-23 02:28 | PC.NURSE ---
pt requesting discharge, yelling at staff to leave. pt unable to find ride home, asking for money for a taxi - pt provided with bus pass, sandwich and ninfa monika and phone to call contacts prior to discharge. pt unable to obtain a ride home - moved to waiting room to wait for a ride/buses to start running in the am. pt agreed to this plan.
== END 2021-12-23 02:06 | disposition left against medical advice (07) ==
PROVIDERS: Emergency Provider Emergency Medicine; PCP Family Medicine
DX: T40.1X1A Poisoning by heroin, accidental (unintentional), initial encounter (principal); Y92.9 Unspecified place or not applicable; E11.65 Type 2 diabetes mellitus with hyperglycemia; J45.909 Unspecified asthma, uncomplicated; Z20.822 Contact with and (suspected) exposure to COVID-19
CPT/HCPCS: 36415; 80048; 80076; 80307; 81001; 82009; 82077; 82947; 83735; 84484; 85025; 87635; 93005; 96361; 96374; 99284

== ENCOUNTER 2022-05-14 22:56 | Emergency (ER) | payer OTHER, SELFPAY ==
[2022-05-14 23:02] VITALS: BP 153/78; PULSE 72; O2SAT 98; BMI 32.3
[2022-05-15 00:18] LABS: Glucose, Whole Blood 184 mg/dL (60-115)
[2022-05-15 00:31] VITALS: BP 135/72; PULSE 71; RESP 18; TEMP 36.8; O2SAT 93
[2022-05-15 01:58] VITALS: BP 135/69; PULSE 63; RESP 18; TEMP 37.3; O2SAT 92
--- NOTE | 2022-05-15 02:15 | PC.NURSE ---
Pt. resting in hallway bed. Swabbed for COVID.
--- NOTE | 2022-05-15 02:25 | ED.RECABL ---
HPI - Recheck/Abnormal Lab/Rx General Chief Complaint: Recheck/Abnormal Lab/Rx Stated Complaint: low blood sugar Time Seen by Provider: 05/15/22 01:08 Source: patient Mode of arrival: EMS History of Present Illness HPI narrative: 47-year-old female who is an everyday smoker, drinks alcohol, IVDA who is brought in by EMS after she states that she took too much insulin and did not eat enough food and her boyfriend was trying to help her bring her blood sugar up but it was noted to be 39. She received D10 and since that time has had consistently normal, for her, blood sugar levels. Related Data Home Medications Medication Instructions Recorded Confirmed albuterol sulfate 90 mcg/actuation 2 puff inhalation Q6H PRN wheezing 10/04/20 06/06/21 aerosol inhaler aspirin 81 mg tablet,delayed 81 mg PO DAILY 10/04/20 06/06/21 release fluticasone propionate 220 2 puff PO BID 10/04/20 06/06/21 mcg/actuation HFA aerosol inhaler (Flovent HFA) ipratropium 0.5 mg-albuterol 3 mg 1 vial inhalation Q6H PRN wheezing 10/04/20 06/06/21 (2.5 mg base)/3 mL nebulization soln subcutaneous insulin pump 10/04/20 05/07/21 sumatriptan succinate 50 mg tablet 50 mg PO DAILY MRX1 PRN Headache 10/04/20 06/06/21 cetirizine 10 mg tablet 1 tab PO BID 06/06/21 06/06/21 famotidine 20 mg tablet (Pepcid) 20 mg PO DAILY 06/06/21 06/06/21 insulin lispro 100 unit/mL See Rx Instructions .Route .COMPLEX 06/06/21 06/06/21 subcutaneous solution (Humalog U-100 Insulin) Previous Rx's Medication Instructions Recorded lorazepam 1 mg tablet (Ativan) 1 mg PO BID PRN anxiety #14 tabs 12/15/20 azithromycin 500 mg tablet 500 mg PO DAILY 3 days #3 tabs 06/08/21 benzonatate 100 mg capsule 100 mg PO TID PRN Cough #21 caps 06/08/21 cefuroxime axetil 500 mg tablet 500 mg PO Q12H 7 days #14 tabs 06/08/21 prednisone 20 mg tablet 40 mg PO DAILY #30 tabs 06/08/21 ondansetron 4 mg disintegrating 4 mg PO Q6H PRN nausea and 09/29/21 tablet vomiting #10 tabs Allergies Allergy/AdvReac Type Severity Reaction Status Date / Time ibuprofen [IBUPROFEN] Allergy Unknown LIGHTHEADED;FEELS Verified 12/22/21 23:22 LIKE CHEST IS CLOSING IN;CLAUSTROPHOBIC Review of Systems Review of Systems: Pertinent positives and negatives as stated in HPI 10 point review of systems is otherwise negative. [facility] Past Medical History Source: nursing notes reviewed Medical History Asthma Asthma Diabetes Diabetic acetonemia Drug abuse in remission Drug overdose Hypercapnic respiratory failure, chronic Hypoxia Moderate obesity Opioid use disorder Pneumonia Pneumonia Post-tubal ligation syndrome Transaminitis Social History Social History Household Members: Significant Other Household Members Other:: 1 Housing: House Do you presently have visiting nurse or other home services: No Alcohol intake: current Alcohol intake frequency: 0-2 drinks per day Alcohol type: hard liquor Patient Tobacco Use Status: Current everyday Tobacco user Tobacco use type: Cigarette Cigarette Packs Per Day: 1 Cigarettes Per Day: 20 Years Smoked: 20 e-Cigarette/Vaping Use: Never Used Second Hand Smoke Exposure: Yes Substance Use Type: Heroin Advance Directives: No Advance Directives Date on File: 06/07/21 service: No Current occupational status: unemployed Physical Exam Vital Signs: Vital Signs: Last Vital Signs Temp 99.1 F 05/15/22 01:58 Pulse 63 05/15/22 01:58 Resp 18 05/15/22 01:58 BP 135/69 05/15/22 01:58 Pulse Ox 92 05/15/22 01:58 O2 Del Method 05/15/22 01:58 BMI result Body Mass Index 32.3 VITAL SIGNS: Reviewed. GENERAL: Well developed, well nourished, in no acute distress. HEAD: Normocephalic/atraumatic EYES: PERRLA, EOMI EARS: Ext canals without abnormality OROPHARYNX: no oral lesions noted, posterior pharynx clear LUNGS: Normal breath sounds. No adventitious sounds or accessory muscle use. SpO2<92> CARDIOVASCULAR: Regular rate and rhythm without noted murmurs ABDOMEN: Soft, non-tender, non-distended with bowel sounds. MUSCULOSKELETAL: No tenderness, deformities, or effusions noted on gross inspection. EXTREMITIES: No cyanosis, clubbing or edema. SKIN: Inspection of the skin reveals no rashes NEUROLOGIC: Alert and oriented x 4. Strength and sensation to light touch were grossly intact x 4. Course Course Course Narrative: 47-year-old female who is tolerating oral intake, glucose levels have remained slightly elevated, patient states that she is feeling much better. All results reviewed and patient discharged home in stable condition. MDM - Recheck/Abnormal Lab/Rx Lab Data Labs: Lab Results 05/15/22 05/15/22 Range/Units 00:13 02:13 POC Glucose 184 H (60-115) mg/dL COVID-19 ([facility]BIA) Negative (Negative) COVID-19 Clin Com See Note Discharge Plan Discharge Clinical Impression: Hypoglycemia due to insulin, Polysubstance use disorder Patient Disposition: Home, Self-Care Instructions: Diabetes and Nutrition (ED), Polysubstance Abuse (ED) Additional Instructions: 1. Resume all home medications as prescribed. 2. Please use extreme caution when taking your insulin such that you eat either just before or immediately after administering insulin. 3. Follow-up with your primary care provider by calling the office in the morning. Return to the ER for worsening symptoms. Prescriptions: No Action ipratropium-albuterol 0.5 mg-3 mg(2.5 mg base)/3 mL solution for nebulization 1 vial inhalation Q6H PRN (Reason: wheezing) Flovent HFA 220 mcg/actuation HFA aerosol inhaler 2 puff PO BID albuterol sulfate 90 mcg/actuation HFA aerosol inhaler 2 puff inhalation Q6H PRN (Reason: wheezing) sumatriptan succinate 50 mg Tablet 50 mg PO DAILY MRX1 MDD 2 TABLETS PRN (Reason: Headache) aspirin 81 mg Tablet,Delayed Release (Dr/Ec) 81 mg PO DAILY (DME) subcutaneous insulin pump Misc MISCELLANEOUS lorazepam [Ativan] 1 mg tablet 1 mg PO BID PRN (Reason: anxiety) Qty: 14 0RF ondansetron 4 mg tablet,disintegrating 4 mg PO Q6H PRN (Reason: nausea and vomiting) Qty: 10 0RF cetirizine 10 mg tablet 1 tab PO BID insulin lispro [Humalog U-100 Insulin] 100 unit/mL solution See Rx Instructions .ROUTE .COMPLEX Rx Instructions: INJECT UP TO 80 UNITS ONCE DAY VIA SUBCUTANUOUS INFUSION VIA INSULIN PUMP famotidine [Pepcid] 20 mg Tablet 20 mg PO DAILY prednisone 20 mg tablet 40 mg PO DAILY Qty: 30 0RF Rx Instructions: Take prednisone 20 mg 2 tabs (40 mg) daily for 1 week, then take prednisone 20 mg daily, further taper per PCP cefuroxime axetil 500 mg tablet 500 mg PO Q12H 7 Days Qty: 14 0RF azithromycin 500 mg tablet 500 mg PO DAILY 3 Days Qty: 3 0RF benzonatate 100 mg Capsule 100 mg PO TID PRN (Reason: Cough) Qty: 21 0RF Referrals: Nilton Parikh MD [Primary Care Provider] -
[2022-05-15 02:29] LABS: COVID-19 Test Negative (Negative)
[2022-05-15] MEDS: Albuterol Sulfate 90 MCG 8 GM INHALER 4 PUFF INHALE (02:38)
== END 2022-05-15 02:43 | disposition home or self-care (01) ==
PROVIDERS: Emergency Provider Student in an Organized Health Care Education/Training Program; PCP Family Medicine
DX: E11.649 Type 2 diabetes mellitus with hypoglycemia without coma (principal); F19.10 Other psychoactive substance abuse, uncomplicated; Z20.822 Contact with and (suspected) exposure to COVID-19; F17.210 Nicotine dependence, cigarettes, uncomplicated; E66.9 Obesity, unspecified; Z68.32 Body mass index [BMI] 32.0-32.9, adult
CPT/HCPCS: 82947; 87635; 99283; 99284

== ENCOUNTER 2022-07-15 22:40 | Emergency (ER) | payer OTHER, SELFPAY ==
[2022-07-15 22:42] VITALS: BP 184/82; PULSE 75; RESP 18; TEMP 36.5; O2SAT 95; BMI 26.0
--- NOTE | 2022-07-15 22:54 | PC.NURSE ---
pt states that she thinks she is withdrawing from methadone last dose was 7 days ago
[2022-07-15 22:58] VITALS: PULSE 95; RESP 12; TEMP 37.1; O2SAT 95
--- NOTE | 2022-07-15 22:58 | ED_ITS ---
HPI - General Adult General Chief complaint: General Medical Stated complaint: UTI? Time Seen by Provider: 07/15/22 23:37 Source: patient Mode of arrival: ambulatory Limitations: no limitations History of Present Illness HPI narrative: Patient type 1 diabetic on insulin pump with history of opiate abuse and alcohol abuse on methadone 25 mg could not take it for last 5 days been feeling nauseated vomiting difficulty urinating had low-grade fever and chills no cold symptoms blood sugar been elevated taking extra insulin on arrival blood sugar was 292 Related Data Home Medications Medication Instructions Recorded Confirmed albuterol sulfate 90 mcg/actuation 2 puff inhalation Q6H PRN wheezing 10/04/20 06/06/21 aerosol inhaler aspirin 81 mg tablet,delayed 81 mg PO DAILY 10/04/20 06/06/21 release fluticasone propionate 220 2 puff PO BID 10/04/20 06/06/21 mcg/actuation HFA aerosol inhaler (Flovent HFA) ipratropium 0.5 mg-albuterol 3 mg 1 vial inhalation Q6H PRN wheezing 10/04/20 06/06/21 (2.5 mg base)/3 mL nebulization soln subcutaneous insulin pump 10/04/20 05/07/21 sumatriptan succinate 50 mg tablet 50 mg PO DAILY MRX1 PRN Headache 10/04/20 06/06/21 cetirizine 10 mg tablet 1 tab PO BID 06/06/21 06/06/21 famotidine 20 mg tablet (Pepcid) 20 mg PO DAILY 06/06/21 06/06/21 insulin lispro 100 unit/mL See Rx Instructions .Route .COMPLEX 06/06/21 06/06/21 subcutaneous solution (Humalog U-100 Insulin) Previous Rx's Medication Instructions Recorded lorazepam 1 mg tablet (Ativan) 1 mg PO BID PRN anxiety #14 tabs 12/15/20 azithromycin 500 mg tablet 500 mg PO DAILY 3 days #3 tabs 06/08/21 benzonatate 100 mg capsule 100 mg PO TID PRN Cough #21 caps 06/08/21 cefuroxime axetil 500 mg tablet 500 mg PO Q12H 7 days #14 tabs 06/08/21 prednisone 20 mg tablet 40 mg PO DAILY #30 tabs 06/08/21 ondansetron 4 mg disintegrating 4 mg PO Q6H PRN nausea and 09/29/21 tablet vomiting #10 tabs cefuroxime axetil 250 mg tablet 250 mg PO BID 7 days #14 tabs 07/16/22 lorazepam 1 mg tablet (Ativan) 1 mg PO BID PRN alcohol withdrawal 07/16/22 #7 tabs ondansetron 4 mg disintegrating 4 mg PO Q6-8H PRN nausea and 07/16/22 tablet vomiting #10 tabs Allergies Allergy/AdvReac Type Severity Reaction Status Date / Time ibuprofen [IBUPROFEN] Allergy Unknown LIGHTHEADED;FEELS Verified 12/22/21 23:22 LIKE CHEST IS CLOSING IN;CLAUSTROPHOBIC Review of Systems Review of Systems: Yes all other systems are reviewed and are negative PMFSH Past Medical History Medical History Asthma Asthma Diabetes Diabetic acetonemia Drug abuse in remission Drug overdose Hypercapnic respiratory failure, chronic Hypoxia Moderate obesity Opioid use disorder Pneumonia Pneumonia Post-tubal ligation syndrome Transaminitis Social History Social History Household Members: Significant Other Household Members Other:: 1 Housing: House Do you presently have visiting nurse or other home services: No Alcohol intake: former Patient Tobacco Use Status: Current everyday Tobacco user Tobacco use type: Cigarette Cigarette Packs Per Day: 1 Cigarettes Per Day: 20 Years Smoked: 20 Smoked in Last 30 Days: Yes e-Cigarette/Vaping Use: Never Used Second Hand Smoke Exposure: Yes Use of substances other than those prescribed or required for medical reasons: Yes Substance Use Type: Opiates Substance Use Frequency: Chronic Longstanding Last Used Substance: Weeks (ago) Any prior treatment program specific to substance use: Yes Advance Directives: No Advance Directives Information Provided: No Advance Directives Date on File: 06/07/21 Patient : No service: No Current occupational status: unemployed Physical Exam ED Vital Signs: Vital Signs - 24 hr 07/15/22 22:42 07/15/22 22:58 07/15/22 23:09 Temperature 97.7 F 98.7 F Pulse Rate 75 95 79 Respiratory Rate 18 12 18 Blood Pressure 184/82 H 188/84 H Pulse Oximetry 95 95 97 Oxygen Delivery Method Room Air Room Air Room Air 07/16/22 00:05 01/15/23 03:08 Temperature Pulse Rate 82 72 Respiratory Rate 10 L 16 Blood Pressure 179/89 H 133/78 Pulse Oximetry 99 97 Oxygen Delivery Method Room Air Room Air BMI result Body Mass Index 26.0 Appearance: Alert. Oriented X3. No acute distress. Eyes: PERRLA, No Nystagmus ENT: Pharynx normal. Oral Mucosa moist Neck: Normal inspection. Neck supple. CVS: Normal heart rate and rhythm. Pulses normal. Respiratory: No respiratory distress. Equal air entry bilateral, no wheezing/rales/rhonchi Abdomen: Soft and nontender. Bowel sounds are present, no mass palpable, no CVA tenderness Skin: Skin warm and dry. Normal skin color. Normal skin turgor. Extremities: No lower extremity edema. No calf tenderness Neuro: Oriented X 3. No motor deficit. No sensory deficit.No cerebellar signs , cranial nerves II-XII intact Medications Administered Discontinued Medications Generic Name Dose Route Start Last Admin Trade Name Freq PRN Reason Stop Dose Admin Sodium Chloride 1,000 mls @ 999 mls/hr 07/15/22 23:49 07/16/22 00:58 Ns IV 07/16/22 00:49 Infused .Q1H1M ONE Infusion Sodium Chloride 1,000 mls @ 999 mls/hr 07/16/22 03:24 07/16/22 05:26 Ns IV 07/16/22 04:24 Infused .Q1H1M ONE Infusion Ceftriaxone Sodium 1 gm/ 50 mls @ 100 mls/hr 07/16/22 03:54 07/16/22 05:26 Sodium Chloride IV 07/16/22 04:23 Infused ONCE ONE Infusion Lorazepam 1 mg 07/16/22 00:47 07/16/22 00:52 Lorazepam 2 Mg/Ml Vial IVPUSH 07/16/22 00:48 1 mg ONCE ONE Administration Ondansetron HCl 4 mg 07/15/22 23:49 07/16/22 00:02 Ondansetron Hcl 4 Mg/2 Ml Vial IVPUSH 07/15/22 23:50 4 mg ONCE ONE Administration Ondansetron HCl 4 mg 07/16/22 03:23 07/16/22 03:28 Ondansetron Hcl 4 Mg/2 Ml Vial IVPUSH 07/16/22 03:24 4 mg ONCE ONE Administration Medical Decision Making Medical Decision Making MDM Narrative: Patient with opiates and alcohol use and withdrawal improved after Ativan also had a UTI IV antibiotics were given patient taking p.o. fluids feeling much b paige now will discharge patient home on Ceftin and Zofran Lab Data [facility] Lab Attestation statement: I reviewed the patient's lab results. 07/16/22 00:15 07/16/22 00:15 Labs: Lab Results 07/16/22 07/16/22 07/16/22 Range/Units 00:15 00:15 00:40 WBC 13.1 H (4.8-10.8) X10*3/uL RBC 4.56 (4.20-5.50) X10*6/uL Hgb 13.5 (12.0-16.0) g/dl Hct 39.0 (37.0-47.0) % MCV 85.5 (80.0-98.0) fL MCH 29.6 (27.0-33.0) pg MCHC 34.6 (31.0-35.0) g/dl RDW 13.9 (11.0-16.0) % Plt Count 249 (160-400) X10*3/uL MPV 10.8 (9.4-12.3) fL Immature Gran % (Auto) 0.4 (0.0-0.4) % Neut % (Auto) 68.2 (45-73) % Lymph % (Auto) 24.6 (20-40) % [place] % (Auto) 6.3 (2-11) % Eos % (Auto) 0.1 (0-4) % Baso % (Auto) 0.4 (0-2) % Lymph # (Auto) 3.2 (1.2-4.9) X10*3/uL [place] # (Auto) 0.8 (0.1-1.2) X10*3/uL Eos # (Auto) 0.0 (0.0-0.4) X10*3/uL Baso # (Auto) 0.1 (0.0-0.2) X10*3/uL Abs Immat Gran (auto) 0.05 H (0.00-0.03) X10*3/uL Absolute Neuts (auto) 8.9 H (2.0-8.3) x10*3/uL Absolute Nucleated RBC 0.000 (0.0-0.012) X10*3/uL Nucleated RBC % (auto) 0.0 (0.0-0.2) /100WBC Smear Tech's Comments VERIFIED VBG pH 7.49 H (7.32-7.43) VBG pCO2 39 mmHg VBG pO2 108 mmHg VBG HCO3 30 H (22-26) mmol/L VBG O2 Saturation 99.0 % VBG Base Excess 6.5 mmol/L Sodium 127 L (135-145) mmol/L Potassium 4.0 (3.3-5.1) mmol/L Chloride 93 L (96-108) mmol/L Carbon Dioxide 22 (22-29) mmol/L Anion Gap 16 (12-20) BUN 16 (9-16) mg/dL Creatinine 0.79 (0.5-1.4) mg/dL Estim Creat Clear Calc 68.5 Estimated GFR > 60 Random Glucose 293 H (60-115) mg/dL Calcium 9.0 (8.4-10.2) mg/dL Total Bilirubin 0.7 (0.0-1.0) mg/dL AST 25 (5-31) U/L ALT 30 (0-31) U/L Alkaline Phosphatase 70 (39-117) U/L Total Protein 7.2 (6.5-8.0) g/dL Albumin 3.4 L (3.5-5.0) g/dL Urine Color Urine Appearance Urine pH (5.0-9.0) Ur Specific [place] (1.005-1.025) Urine Protein (Neg-Trace) mg/dL Urine Glucose (UA) (Negative) mg/dL Urine Ketones (Negative) mg/dL Urine Blood (Negative) Urine Nitrite (Negative) Ur Leukocyte Esterase (Negative) Urine RBC (0-2) /HPF Urine WBC (0-5) /HPF Ur Squamous Epith Cells (0-2) /HPF Urine Bacteria (None Seen) Hyaline Casts (0-2) /LPF Urine Test (NEGATIVE) Urine Opiates Screen (Not Detect) Urine Fentanyl Screen (Not Detect) Ur Barbiturates Screen (Not Detect) Ur Phencyclidine Scrn (Not Detect) Ur Amphetamines Screen (Not Detect) U Benzodiazepines Scrn (Not Detect) Urine Cocaine Screen (Not Detect) U Marijuana (THC) Screen (Not Detect) Acetone, Qual Negative (Negative) 07/16/22 07/16/22 07/16/22 Range/Units 03:17 03:17 03:17 WBC (4.8-10.8) X10*3/uL RBC (4.20-5.50) X10*6/uL Hgb (12.0-16.0) g/dl Hct (37.0-47.0) % MCV (80.0-98.0) fL MCH (27.0-33.0) pg MCHC (31.0-35.0) g/dl RDW (11.0-16.0) % Plt Count (160-400) X10*3/uL MPV (9.4-12.3) fL Immature Gran % (Auto) (0.0-0.4) % Neut % (Auto) (45-73) % Lymph % (Auto) (20-40) % [place] % (Auto) (2-11) % Eos % (Auto) (0-4) % Baso % (Auto) (0-2) % Lymph # (Auto) (1.2-4.9) X10*3/uL [place] # (Auto) (0.1-1.2) X10*3/uL Eos # (Auto) (0.0-0.4) X10*3/uL Baso # (Auto) (0.0-0.2) X10*3/uL Abs Immat Gran (auto) (0.00-0.03) X10*3/uL Absolute Neuts (auto) (2.0-8.3) x10*3/uL Absolute Nucleated RBC (0.0-0.012) X10*3/uL Nucleated RBC % (auto) (0.0-0.2) /100WBC Smear Tech's Comments VBG pH (7.32-7.43) VBG pCO2 mmHg VBG pO2 mmHg VBG HCO3 (22-26) mmol/L VBG O2 Saturation % VBG Base Excess mmol/L Sodium (135-145) mmol/L Potassium (3.3-5.1) mmol/L Chloride (96-108) mmol/L Carbon Dioxide (22-29) mmol/L Anion Gap (12-20) BUN (9-16) mg/dL Creatinine (0.5-1.4) mg/dL Estim Creat Clear Calc Estimated GFR Random Glucose (60-115) mg/dL Calcium (8.4-10.2) mg/dL Total Bilirubin (0.0-1.0) mg/dL AST (5-31) U/L ALT (0-31) U/L Alkaline Phosphatase (39-117) U/L Total Protein (6.5-8.0) g/dL Albumin (3.5-5.0) g/dL Urine Color Yellow Urine Appearance Cloudy Urine pH 6.0 (5.0-9.0) Ur Specific [place] 1.015 (1.005-1.025) Urine Protein 300 (3+) H (Neg-Trace) mg/dL Urine Glucose (UA) 250 H (Negative) mg/dL Urine Ketones Trace (Negative) mg/dL Urine Blood Trace H (Negative) Urine Nitrite Negative (Negative) Ur Leukocyte Esterase Moderate (2+) H (Negative) Urine RBC 0-2 (0-2) /HPF Urine WBC >50 H (0-5) /HPF Ur Squamous Epith Cells 6-10 (0-2) /HPF Urine Bacteria 4+ (None Seen) Hyaline Casts 3-5 (0-2) /LPF Urine Test NEGATIVE (NEGATIVE) Urine Opiates Screen Not Detected (Not Detect) Urine Fentanyl Screen POSITIVE H (Not Detect) Ur Barbiturates Screen Not Detected (Not Detect) Ur Phencyclidine Scrn Not Detected (Not Detect) Ur Amphetamines Screen Not Detected (Not Detect) U Benzodiazepines Scrn POSITIVE H (Not Detect) Urine Cocaine Screen Not Detected (Not Detect) U Marijuana (THC) Screen Not Detected (Not Detect) Acetone, Qual (Negative) Discharge Plan Discharge Clinical Impression: UTI (urinary tract infection), Vomiting Patient Disposition: Home, Self-Care Instructions: Urinary Tract Infection in Women (ED), Acute Nausea and Vomiting (ED) Additional Instructions: Drink plenty of fluids Take antibiotic as prescribed Follow with PCP if not better Prescriptions: New cefuroxime axetil 250 mg tablet 250 mg PO BID 7 Days Qty: 14 0RF lorazepam [Ativan] 1 mg tablet 1 mg PO BID PRN (Reason: alcohol withdrawal) Qty: 7 0RF ondansetron 4 mg tablet,disintegrating 4 mg PO Q6-8H PRN (Reason: nausea and vomiting) Qty: 10 0RF No Action ipratropium-albuterol 0.5 mg-3 mg(2.5 mg base)/3 mL solution for nebulization 1 vial inhalation Q6H PRN (Reason: wheezing) Flovent HFA 220 mcg/actuation HFA aerosol inhaler 2 puff PO BID albuterol sulfate 90 mcg/actuation HFA aerosol inhaler 2 puff inhalation Q6H PRN (Reason: wheezing) sumatriptan succinate 50 mg Tablet 50 mg PO DAILY MRX1 MDD 2 TABLETS PRN (Reason: Headache) aspirin 81 mg Tablet,Delayed Release (Dr/Ec) 81 mg PO DAILY (DME) subcutaneous insulin pump Misc MISCELLANEOUS lorazepam [Ativan] 1 mg tablet 1 mg PO BID PRN (Reason: anxiety) Qty: 14 0RF ondansetron 4 mg tablet,disintegrating 4 mg PO Q6H PRN (Reason: nausea and vomiting) Qty: 10 0RF cetirizine 10 mg tablet 1 tab PO BID insulin lispro [Humalog U-100 Insulin] 100 unit/mL solution See Rx Instructions .ROUTE .COMPLEX Rx Instructions: INJECT UP TO 80 UNITS ONCE DAY VIA SUBCUTANUOUS INFUSION VIA INSULIN PUMP famotidine [Pepcid] 20 mg Tablet 20 mg PO DAILY prednisone 20 mg tablet 40 mg PO DAILY Qty: 30 0RF Rx Instructions: Take prednisone 20 mg 2 tabs (40 mg) daily for 1 week, then take prednisone 20 mg daily, further taper per PCP cefuroxime axetil 500 mg tablet 500 mg PO Q12H 7 Days Qty: 14 0RF azithromycin 500 mg tablet 500 mg PO DAILY 3 Days Qty: 3 0RF benzonatate 100 mg Capsule 100 mg PO TID PRN (Reason: Cough) Qty: 21 0RF Interventions: ED Discharge Assessment Last Done: 07/16/22 06:54 Discharge Date/Time: 07/16/22 06:55
[2022-07-15 23:09] VITALS: BP 188/84; PULSE 79; RESP 18; O2SAT 97
[2022-07-16] MEDS: 0.9 % Sodium Chloride 1,000 ML 999 ML IV ×2 (00:02→03:28)
[2022-07-16] MEDS: ondansetron HCL 4 MG/2 ML VIAL IVPUSH ×2 (00:02→03:28)
[2022-07-16 00:05] VITALS: BP 179/89; PULSE 82; RESP 10; O2SAT 99
--- NOTE | 2022-07-16 00:05 | PC.NURSE ---
pt unable to urinate, bladder scan done, 433mL urine in bladder, MD aware
[2022-07-16 00:28] LABS: Basophils Absolute Auto 0.1 X10*3/uL (0.0-0.2); Basophils Percent Auto 0.4 % (0-2); Eosinophils Percent Auto 0.1 % (0-4); Hemoglobin 13.5 g/dl (12.0-16.0); Imm Gran Abs Auto 0.05 X10*3/uL (0.00-0.03); Imm Gran Pct Auto 0.4 % (0.0-0.4); Lymphocytes Absolute Auto 3.2 X10*3/uL (1.2-4.9); Lymphocytes Percent Auto 24.6 % (20-40); MANUAL DIFF FLAG SCAN; Mean Corpuscular HGB Conc 34.6 g/dl (31.0-35.0); Mean Corpuscular Hemoglobin 29.6 pg (27.0-33.0); Mean Corpuscular Volume 85.5 fL (80.0-98.0); Mean Platelet Volume 10.8 fL (9.4-12.3); Monocytes Absolute Auto 0.8 X10*3/uL (0.1-1.2); Monocytes Percent Auto 6.3 % (2-11); Neutrophils Absolute Auto 8.9 x10*3/uL (2.0-8.3); Neutrophils Percent Auto 68.2 % (45-73); PLT CLUMP 1; Red Blood Count 4.56 X10*6/uL (4.20-5.50); Red Cell Distribution Width 13.9 % (11.0-16.0); SCAN SMEAR FLAG 1
[2022-07-16 00:33] LABS: White Blood Count 13.1 X10*3/uL (4.8-10.8)
[2022-07-16 00:45] LABS: Acetone, serum QL Negative (Negative); Alanine Aminotransferase 30 U/L (0-31); Albumin Level 3.4 g/dL (3.5-5.0); Alkaline Phosphatase 70 U/L (39-117); Anion Gap 16 (12-20); Aspartate Amino Transferase 25 U/L (5-31); Bilirubin Total 0.7 mg/dL (0.0-1.0); Blood Urea Nitrogen 16 mg/dL (9-16); Carbon Dioxide 22 mmol/L (22-29); Chloride 93 mmol/L (96-108); Creatinine Clr Calc Pharmacy 68.5; Estimated Glomerular Filt Rate > 60; Glucose Random 293 mg/dL (60-115); Sodium 127 mmol/L (135-145); Total Protein 7.2 g/dL (6.5-8.0)
[2022-07-16 00:46] LABS: Venous Blood Gas Refer to POC result
[2022-07-16 00:47] LABS: VBG Base Excess 6.5 mmol/L; VBG HCO3 30 mmol/L (22-26); VBG pCO2 39 mmHg; VBG pH 7.49 (7.32-7.43); VBG pO2 108 mmHg
[2022-07-16] MEDS: LORazepam 2 MG/ML VIAL 1 MG IVPUSH (00:52)
--- NOTE | 2022-07-16 00:58 | PC.NURSE ---
pt resting on stretcher, vomited yellow vomit twice. aware.
[2022-07-16 01:07] LABS: Platelet Count 249 X10*3/uL (160-400); SLIDE REVIEW VERIFIED
[2022-07-16 03:08] VITALS: BP 133/78; PULSE 72; RESP 16; O2SAT 97
[2022-07-16 03:25] LABS: Appearance Urine Cloudy; Color Urine Yellow; Glucose Urine UA 250 mg/dL (Negative); Leukocyte Esterase Urine Moderate (2+) (Negative); Nitrite Urine Negative (Negative); Specific Gravity - Urine 1.015 (1.005-1.025); UMIC TRIGGER UACC YES; Urine Blood Trace (Negative); Urine Ketones Trace mg/dL (Negative); Urine Protein 300 (3+) mg/dL (Neg-Trace)
[2022-07-16 03:27] LABS: UPreg QC Valid YES; Urine Pregnancy NEGATIVE (NEGATIVE)
[2022-07-16 03:30] LABS: Bacteria Urine 4+ (None Seen); RBC Urine 0-2 /HPF (0-2); UACC Culture Trigger YES; WBC Urine >50 /HPF (0-5)
[2022-07-16 03:35] LABS: Amphetamine Screen Urine Not Detected (Not Detect); Barbiturates, Urine Not Detected (Not Detect); Benzodiazepines Screen Urine POSITIVE (Not Detect); Cannabinoid Screen Urine Not Detected (Not Detect); Cocaine Screen Urine Not Detected (Not Detect); Fentanyl, urine POSITIVE (Not Detect); Opiate Screen Urine Not Detected (Not Detect); Phencyclidine Screen Urine Not Detected (Not Detect)
[2022-07-16] MEDS: cefTRIAXone sodium 1 GM in 0.9 % Sodium Chloride 50 ML IV (04:02)
--- NOTE | 2022-07-16 04:06 | PC.NURSE ---
Urine specimen collected vi clean catch and sent to the lab for processing. Second bolus of NS IV started and running w/o issues. Patient reported feeling nauseous, Zofran 4 mg IV push administered with good effect-patient reported nausea resolved. Urine specimen positive for UTI. Dr. Hall is aware and odored IV Rocephin. Per MD blood cultures not needed.
--- NOTE | 2022-07-16 05:26 | PC.NURSE ---
Patient received ninfa monika and crackers, tolerated well, patient denies nausea, no vomiting noted.
[2022-07-17 10:33] LABS: Glucose, Whole Blood 292 mg/dL (60-115)
== END 2022-07-16 06:55 | disposition home or self-care (01) ==
PROVIDERS: Student in an Organized Health Care Education/Training Program; Emergency Provider Internal Medicine
DX: N39.0 Urinary tract infection, site not specified (principal); B96.20 Unspecified Escherichia coli [E. coli] as the cause of diseases classified elsewhere; R11.2 Nausea with vomiting, unspecified; F11.20 Opioid dependence, uncomplicated; F10.10 Alcohol abuse, uncomplicated; Y90.9 Presence of alcohol in blood, level not specified; E10.9 Type 1 diabetes mellitus without complications; F17.210 Nicotine dependence, cigarettes, uncomplicated; Z79.4 Long term (current) use of insulin; Z96.41 Presence of insulin pump (external) (internal); Z79.82 Long term (current) use of aspirin; Z79.899 Other long term (current) drug therapy
CPT/HCPCS: 36415; 80053; 80307; 81001; 81025; 82009; 82803; 82947; 85025; 87086; 87088; 87186; 96361; 96365; 96375; 96376; 99284; J0696; J2060; J2405

== ENCOUNTER 2023-05-19 14:34 | Emergency (ER) | payer OTHER, SELFPAY ==
--- NOTE | ~2023-05-19 | XR_ITS ---
EXAMINATION: XR CHEST CLINICAL INFORMATION: Cough COMPARISON: CT chest 06/06/2021. TECHNIQUE: 2 views of the chest were obtained. FINDINGS: Normal appearance of the cardiomediastinal structures. No effusions or pneumothoraces. Normal pattern of pulmonary vasculature. No focal pulmonary consolidation. XR/XR chest 2V IMPRESSION: Normal chest. Lungs clear.
[2023-05-19 15:15] VITALS: BP 176/85; PULSE 75; RESP 18; TEMP 36.2; O2SAT 96; BMI 32.4
--- NOTE | 2023-05-19 15:16 | ED_ITS ---
HPI - General Adult General Chief complaint: Upper Respiratory Symptoms Stated complaint: flu like symptoms Time Seen by Provider: 05/19/23 15:55 Source: patient Mode of arrival: ambulatory History of Present Illness HPI narrative: 48-year-old female who is an everyday smoker, presents with 2 weeks of shortness of breath without associated fever, chills, nausea, vomiting or urinary symptoms denies any chest pain. Related Data Home Medications Medication Instructions Recorded Confirmed albuterol sulfate 90 mcg/actuation 2 puff inhalation Q6H PRN wheezing 10/04/20 06/06/21 aerosol inhaler aspirin 81 mg tablet,delayed 81 mg PO DAILY 10/04/20 06/06/21 release fluticasone propionate 220 2 puff PO BID 10/04/20 06/06/21 mcg/actuation HFA aerosol inhaler (Flovent HFA) ipratropium 0.5 mg-albuterol 3 mg 1 vial inhalation Q6H PRN wheezing 10/04/20 06/06/21 (2.5 mg base)/3 mL nebulization soln subcutaneous insulin pump 10/04/20 05/07/21 sumatriptan succinate 50 mg tablet 50 mg PO DAILY MRX1 PRN Headache 10/04/20 06/06/21 cetirizine 10 mg tablet 1 tab PO BID 06/06/21 06/06/21 famotidine 20 mg tablet (Pepcid) 20 mg PO DAILY 06/06/21 06/06/21 insulin lispro 100 unit/mL See Rx Instructions .Route .COMPLEX 06/06/21 06/06/21 subcutaneous solution (Humalog U-100 Insulin) Previous Rx's Medication Instructions Recorded lorazepam 1 mg tablet (Ativan) 1 mg PO BID PRN anxiety #14 tabs 12/15/20 azithromycin 500 mg tablet 500 mg PO DAILY 3 days #3 tabs 06/08/21 benzonatate 100 mg capsule 100 mg PO TID PRN Cough #21 caps 06/08/21 cefuroxime axetil 500 mg tablet 500 mg PO Q12H 7 days #14 tabs 06/08/21 prednisone 20 mg tablet 40 mg (2 x 20 mg) PO DAILY #30 tabs 06/08/21 ondansetron 4 mg disintegrating 4 mg PO Q6H PRN nausea and 09/29/21 tablet vomiting #10 tabs cefuroxime axetil 250 mg tablet 250 mg PO BID 7 days #14 tabs 07/16/22 lorazepam 1 mg tablet (Ativan) 1 mg PO BID PRN alcohol withdrawal 07/16/22 #7 tabs ondansetron 4 mg disintegrating 4 mg PO Q6-8H PRN nausea and 07/16/22 tablet vomiting #10 tabs azithromycin 250 mg tablet 250 mg PO DAILY 4 days #4 tabs 05/19/23 prednisone 50 mg tablet 50 mg PO DAILY 4 days #4 tabs 05/19/23 Allergies Allergy/AdvReac Type Severity Reaction Status Date / Time ibuprofen [IBUPROFEN] Allergy Unknown LIGHTHEADED;FEELS Verified 05/19/23 15:15 LIKE CHEST IS CLOSING IN;CLAUSTROPHOBIC Review of Systems 2 Review of Systems: Pertinent positives and negatives as stated in [facility] Past Medical History Source: nursing notes reviewed Medical History Opioid use disorder Hypoxia Moderate obesity Hypercapnic respiratory failure, chronic Asthma Drug overdose Diabetes Transaminitis Pneumonia Pneumonia Post-tubal ligation syndrome Drug abuse in remission Asthma Diabetic acetonemia Social History Social History Household Members: Significant Other Household Members Other:: 1 Housing: House Do you presently have visiting nurse or other home services: No Alcohol intake: former Patient Tobacco Use Status: Current everyday Tobacco user Tobacco use type: Cigarette Cigarette Packs Per Day: 1 Cigarettes Per Day: 20 Years Smoked: 20 Smoked in Last 30 Days: Yes e-Cigarette/Vaping Use: Never Used Second Hand Smoke Exposure: Yes Use of substances other than those prescribed or required for medical reasons: No Substance Use Type: Opiates Advance Directives: No Advance Directives Information Provided: No Advance Directives Date on File: 06/07/21 service: No Current occupational status: unemployed Physical Exam ED Vital Signs: Vital Signs - 24 hr 05/19/23 15:15 05/19/23 15:45 05/19/23 15:58 Temperature 97.2 F 98.0 F Pulse Rate 75 67 Respiratory Rate 18 19 Blood Pressure 176/85 H 164/80 H Pulse Oximetry 96 97 97 Oxygen Delivery Method Room Air Room Air Room Air 05/19/23 18:24 Temperature 98.0 F Pulse Rate 71 Respiratory Rate 15 Blood Pressure 146/69 H Pulse Oximetry 95 Oxygen Delivery Method Room Air BMI result Body Mass Index 32.4 VITAL SIGNS: Reviewed. GENERAL: Well developed, well nourished, in no acute distress. HEAD: Normocephalic/atraumatic EYES: PERRLA, EOMI EARS: Ext canals without abnormality, TMs non-bulging and non-erythematous NOSE: Nares patent bilateral OROPHARYNX: no oral lesions noted, posterior pharynx clear and non-erythematous without noted tonsillar enlargement/erythema/exudates NECK: Supple, no adenopathy LUNGS: Normal breath sounds, no expiratory wheeze/rhonchi/rales, no tachypnea. SpO2<97> CARDIOVASCULAR: Regular rate and rhythm without noted murmurs ABDOMEN: Soft, non-tender, non-distended with bowel sounds. MUSCULOSKELETAL: No tenderness, deformities, or effusions noted on gross inspection. EXTREMITIES: No cyanosis, clubbing or edema. SKIN: Inspection of the skin reveals no rashes NEUROLOGIC: Alert and oriented x 4. Strength and sensation to light touch were grossly intact x 4. Course Course Course Narrative: This is an RME: Additional HPI, ROS, PE not included below will be deferred to primary provider. This is a 53-vome-dcm-female, with a hx of asthma, and diabetes, presenting to the emergency department with complaints of cough, shortness of breath, and nasal congestion x the last few weeks. She has felt wheezy and has been using her inhalers without any relief. Extra harjeet wheezes Medications Administered Discontinued Medications Generic Name Dose Route Start Last Admin Trade Name Freq PRN Reason Stop Dose Admin Albuterol/Ipratropium 3 ml 05/19/23 16:17 05/19/23 17:40 Albuterol/Iprat 2.5/0.5mg 3 Ml Ampul.Neb INHALE 05/19/23 16:18 3 ml ONCE ONE Administration Azithromycin 500 mg 05/19/23 16:18 05/19/23 17:21 Azithromycin 500 Mg Tablet PO 05/19/23 16:19 500 mg ONCE ONE Administration Prednisone 50 mg 05/19/23 16:15 05/19/23 17:21 Prednisone 10 Mg Tablet PO 05/19/23 16:16 50 mg ONCE ONE Administration Medical Decision Making Medical Decision Making MDM Narrative: 48-year-old female with history and clinical presentation, DDX: viral illness, bronchitis, less likely pneumonia. I reviewed all investigations and hematologic indices are negative for leukocytosis or left shift, there is no anemia or thrombocytopenia. Chemistry indices negative for BRUNA I are electrolytes/or acute liver enzyme derangements. Chest x-ray negative for acute findings and otherwise my interpretation is in agreement with radiology's impression. Viral testing is negative for RSV/COVID/influenza. 1727: I was informed by nursing staff that patient has her own insulin pump and reported that she did not feel well and on point of care glucose she was noted to be 40. Patient has received initial prednisone as well as azithromycin for suspected bronchitis. Repeat glucose is 115 and patient was cautioned to stop giving herself additional insulin and to continue to eat well. Patient is alert and oriented and should be able to follow these instructions. She is otherwise discharged home. Differential Diagnosis Differential Diagnoses: The differential diagnosis associated with the presentation includes Please see the discussion Admission/Observation Consideration of admission/observation: Escalation of care including admission/observation considered Please see the discussion above Lab Data MDM Lab Attestation statement: I reviewed the patient's lab results. Please see the discussion above 05/19/23 15:41 05/19/23 15:41 Labs: Lab Results 05/19/23 05/19/23 05/19/23 Range/Units 15:41 16:17 17:27 WBC 7.6 (4.8-10.8) X10*3/uL RBC 4.65 (4.20-5.50) X10*6/uL Hgb 13.8 (12.0-16.0) g/dl Hct 40.5 (37.0-47.0) % MCV 87.1 (80.0-98.0) fL MCH 29.7 (27.0-33.0) pg MCHC 34.1 (31.0-35.0) g/dl RDW 13.1 (11.0-16.0) % Plt Count 215 (160-400) X10*3/uL MPV 10.6 (9.4-12.3) fL Immature Gran % (Auto) 0.1 (0.0-0.4) % Neut % (Auto) 54.5 (45-73) % Lymph % (Auto) 36.3 (20-40) % Patrick % (Auto) 6.6 (2-11) % Eos % (Auto) 2.1 (0-4) % Baso % (Auto) 0.4 (0-2) % Lymph # (Auto) 2.7 (1.2-4.9) X10*3/uL Patrick # (Auto) 0.5 (0.1-1.2) X10*3/uL Eos # (Auto) 0.2 (0.0-0.4) X10*3/uL Baso # (Auto) 0.0 (0.0-0.2) X10*3/uL Abs Immat Gran (auto) 0.01 (0.00-0.03) X10*3/uL Absolute Neuts (auto) 4.1 (2.0-8.3) x10*3/uL Absolute Nucleated RBC 0.000 (0.0-0.012) X10*3/uL Nucleated RBC % (auto) 0.0 (0.0-0.2) /100WBC Sodium 138 (135-145) mmol/L Potassium 4.1 (3.3-5.1) mmol/L Chloride 103 (96-108) mmol/L Carbon Dioxide 28 (22-29) mmol/L Anion Gap 11 L (12-20) BUN 12 (9-16) mg/dL Creatinine 0.71 (0.5-1.4) mg/dL Estim Creat Clear Calc 84.2 Estimated GFR > 60 POC Glucose 103 40 L* (60-115) mg/dL Random Glucose 148 H (60-115) mg/dL Calcium 9.6 D (8.4-10.2) mg/dL Total Bilirubin 0.4 (0.0-1.0) mg/dL Direct Bilirubin 0.1 (0.0-0.5) mg/dL AST 39 H (5-31) U/L ALT 47 H (0-31) U/L Alkaline Phosphatase 70 (39-117) U/L Total Protein 7.8 (6.5-8.0) g/dL Albumin 4.1 (3.5-5.0) g/dL Influenza Type A (PCR) NEGATIVE (Negative) Influenza Type B (PCR) NEGATIVE (Negative) RSV RNA Qual (PCR) NEGATIVE (Negative) SARS-CoV-2 RNA (RT-PCR) NEGATIVE (Negative) 05/19/23 Range/Units 17:56 WBC (4.8-10.8) X10*3/uL RBC (4.20-5.50) X10*6/uL Hgb (12.0-16.0) g/dl Hct (37.0-47.0) % MCV (80.0-98.0) fL MCH (27.0-33.0) pg MCHC (31.0-35.0) g/dl RDW (11.0-16.0) % Plt Count (160-400) X10*3/uL MPV (9.4-12.3) fL Immature Gran % (Auto) (0.0-0.4) % Neut % (Auto) (45-73) % Lymph % (Auto) (20-40) % Patrick % (Auto) (2-11) % Eos % (Auto) (0-4) % Baso % (Auto) (0-2) % Lymph # (Auto) (1.2-4.9) X10*3/uL Patrick # (Auto) (0.1-1.2) X10*3/uL Eos # (Auto) (0.0-0.4) X10*3/uL Baso # (Auto) (0.0-0.2) X10*3/uL Abs Immat Gran (auto) (0.00-0.03) X10*3/uL Absolute Neuts (auto) (2.0-8.3) x10*3/uL Absolute Nucleated RBC (0.0-0.012) X10*3/uL Nucleated RBC % (auto) (0.0-0.2) /100WBC Sodium (135-145) mmol/L Potassium (3.3-5.1) mmol/L Chloride (96-108) mmol/L Carbon Dioxide (22-29) mmol/L Anion Gap (12-20) BUN (9-16) mg/dL Creatinine (0.5-1.4) mg/dL Estim Creat Clear Calc Estimated GFR POC Glucose 115 (60-115) mg/dL Random Glucose (60-115) mg/dL Calcium (8.4-10.2) mg/dL Total Bilirubin (0.0-1.0) mg/dL Direct Bilirubin (0.0-0.5) mg/dL AST (5-31) U/L ALT (0-31) U/L Alkaline Phosphatase (39-117) U/L Total Protein (6.5-8.0) g/dL Albumin (3.5-5.0) g/dL Influenza Type A (PCR) (Negative) Influenza Type B (PCR) (Negative) RSV RNA Qual (PCR) (Negative) SARS-CoV-2 RNA (RT-PCR) (Negative) External Record Review External record reviewed: Outpatient record, Prior outpatient labs and Prior outpatient radiology Critical Care Time Critical Care Time Critical Care Time: Yes Total Critical Care Time: 30 Attestation: I personally attest to this time spent taking care of the patient. Discharge Plan Discharge Clinical Impression: Bronchitis Patient Disposition: Home, Self-Care Instructions: Chronic Bronchitis (ED) Additional Instructions: 1. Complete the course of antibiotics as prescribed. 2. Complete the course of steroids as prescribed. 3. Follow-up with primary care doctor Return to the ER for any worsening symptoms. Prescriptions: New prednisone 50 mg tablet 50 mg PO DAILY 4 Days Qty: 4 0RF azithromycin 250 mg tablet 250 mg PO DAILY 4 Days Qty: 4 0RF Rx Instructions: start on day 2 of therapy No Action ipratropium-albuterol 0.5 mg-3 mg(2.5 mg base)/3 mL solution for nebulization 1 vial inhalation Q6H PRN (Reason: wheezing) Flovent HFA 220 mcg/actuation HFA aerosol inhaler 2 puff PO BID albuterol sulfate 90 mcg/actuation HFA aerosol inhaler 2 puff inhalation Q6H PRN (Reason: wheezing) sumatriptan succinate 50 mg Tablet 50 mg PO DAILY MRX1 MDD 2 TABLETS PRN (Reason: Headache) aspirin 81 mg Tablet,Delayed Release (Dr/Ec) 81 mg PO DAILY (DME) subcutaneous insulin pump Misc MISCELLANEOUS lorazepam [Ativan] 1 mg tablet 1 mg PO BID PRN (Reason: anxiety) Qty: 14 0RF ondansetron 4 mg tablet,disintegrating 4 mg PO Q6H PRN (Reason: nausea and vomiting) Qty: 10 0RF cefuroxime axetil 250 mg tablet 250 mg PO BID 7 Days Qty: 14 0RF lorazepam [Ativan] 1 mg tablet 1 mg PO BID PRN (Reason: alcohol withdrawal) Qty: 7 0RF ondansetron 4 mg tablet,disintegrating 4 mg PO Q6-8H PRN (Reason: nausea and vomiting) Qty: 10 0RF cetirizine 10 mg tablet 1 tab PO BID insulin lispro [Humalog U-100 Insulin] 100 unit/mL solution See Rx Instructions .ROUTE .COMPLEX Rx Instructions: INJECT UP TO 80 UNITS ONCE DAY VIA SUBCUTANUOUS INFUSION VIA INSULIN PUMP famotidine [Pepcid] 20 mg Tablet 20 mg PO DAILY prednisone 20 mg tablet 40 mg PO DAILY Qty: 30 0RF Rx Instructions: Take prednisone 20 mg 2 tabs (40 mg) daily for 1 week, then take prednisone 20 mg daily, further taper per PCP cefuroxime axetil 500 mg tablet 500 mg PO Q12H 7 Days Qty: 14 0RF azithromycin 500 mg tablet 500 mg PO DAILY 3 Days Qty: 3 0RF benzonatate 100 mg Capsule 100 mg PO TID PRN (Reason: Cough) Qty: 21 0RF Referrals: Nilton Parikh MD [Primary Care Provider] -
[2023-05-19 15:45] VITALS: BP 164/80; PULSE 67; RESP 19; TEMP 36.7; O2SAT 97
[2023-05-19 15:46] LABS: MANUAL DIFF FLAG NO
[2023-05-19 15:48] LABS: Basophils Percent Auto 0.4 % (0-2); Eosinophils Absolute Auto 0.2 X10*3/uL (0.0-0.4); Eosinophils Percent Auto 2.1 % (0-4); Hematocrit 40.5 % (37.0-47.0); Hemoglobin 13.8 g/dl (12.0-16.0); Imm Gran Abs Auto 0.01 X10*3/uL (0.00-0.03); Imm Gran Pct Auto 0.1 % (0.0-0.4); Lymphocytes Absolute Auto 2.7 X10*3/uL (1.2-4.9); Lymphocytes Percent Auto 36.3 % (20-40); Mean Corpuscular HGB Conc 34.1 g/dl (31.0-35.0); Mean Corpuscular Hemoglobin 29.7 pg (27.0-33.0); Mean Corpuscular Volume 87.1 fL (80.0-98.0); Mean Platelet Volume 10.6 fL (9.4-12.3); Monocytes Absolute Auto 0.5 X10*3/uL (0.1-1.2); Monocytes Percent Auto 6.6 % (2-11); Neutrophils Absolute Auto 4.1 x10*3/uL (2.0-8.3); Neutrophils Percent Auto 54.5 % (45-73); Platelet Count 215 X10*3/uL (160-400); Red Blood Count 4.65 X10*6/uL (4.20-5.50); Red Cell Distribution Width 13.1 % (11.0-16.0); White Blood Count 7.6 X10*3/uL (4.8-10.8)
[2023-05-19 15:58] VITALS: O2SAT 97
--- NOTE | 2023-05-19 16:00 | PC.NURSE ---
pt a&o x4, pleasant, calm, and cooperative. 20G IV placed to RAC. pt recovering from TITUS. pt hx juvenile DM. has insulin pump. checked own blood sugar this am. pt sts has not been able to keep blood sugar down, thinks its due to infection/sickness. pt BP elevated. documented in worklist. no hx of HTN. pt resting quietly on stretcher in no apparent distress. call nunes within pt reach. pt offers no other complaints edu. plan of care ongoing.
[2023-05-19 16:04] LABS: Alanine Aminotransferase 47 U/L (0-31); Albumin Level 4.1 g/dL (3.5-5.0); Alkaline Phosphatase 70 U/L (39-117); Anion Gap 11 (12-20); Aspartate Amino Transferase 39 U/L (5-31); Bilirubin Direct 0.1 mg/dL (0.0-0.5); Bilirubin Total 0.4 mg/dL (0.0-1.0); Blood Urea Nitrogen 12 mg/dL (9-16); Calcium 9.6 mg/dL (8.4-10.2); Carbon Dioxide 28 mmol/L (22-29); Chloride 103 mmol/L (96-108); Creatinine Clr Calc Pharmacy 84.2; Estimated Glomerular Filt Rate > 60; Glucose Random 148 mg/dL (60-115); Potassium 4.1 mmol/L (3.3-5.1); Sodium 138 mmol/L (135-145); Total Protein 7.8 g/dL (6.5-8.0)
--- NOTE | 2023-05-19 16:19 | MHC.EDTECH ---
POC 103
[2023-05-19 16:21] LABS: Glucose, Whole Blood 103 mg/dL (60-115)
[2023-05-19 16:27] LABS: Influenza A PCR NEGATIVE (Negative); Influenza B PCR NEGATIVE (Negative); Resp Syncy Virus RNA Qual PCR NEGATIVE (Negative); SARS COV2 PCR INHOUSE NEGATIVE (Negative)
[2023-05-19] MEDS: predniSONE 10 MG TABLET 50 MG PO (17:21)
[2023-05-19] MEDS: Azithromycin 500 MG TABLET PO (17:21)
[2023-05-19 17:32] LABS: Glucose, Whole Blood 40 mg/dL (60-115)
--- NOTE | 2023-05-19 17:32 | PC.NURSE ---
pt sts she feels shaky like her blood sugar is low. this curriculum writer asked her if she's had albuterol today. pt sts she had quite a bit of her albuterol inhaler. pt placed on monitor. HR 70s-80s. this curriculum writer took pt's poc and noted to be 40. pt immediately given apple juice, felisa crackers, and pudding. pt a&o, appears to be perfusing well, speaking in full complete sentences. Dr. Ernandez notified and aware. will recheck poc. call nunes within reach. pt offers no complaints edu. plan of care ongoing.
[2023-05-19] MEDS: Albuterol/Iprat 2.5/0.5MG 3 ML AMPUL.NEB INHALE (17:40)
--- NOTE | 2023-05-19 17:57 | MHC.EDTECH ---
POC 115
[2023-05-19 17:59] LABS: Glucose, Whole Blood 115 mg/dL (60-115)
[2023-05-19 18:24] VITALS: BP 146/69; PULSE 71; RESP 15; TEMP 36.7; O2SAT 95
== END 2023-05-19 18:56 | disposition home or self-care (01) ==
PROVIDERS: Physician Assistant Medical; Emergency Provider Student in an Organized Health Care Education/Training Program; PCP Family Medicine
DX: J40 Bronchitis, not specified as acute or chronic (principal); Z20.822 Contact with and (suspected) exposure to COVID-19; Z20.828 Contact with and (suspected) exposure to other viral communicable diseases; R06.02 Shortness of breath; E11.8 Type 2 diabetes mellitus with unspecified complications; F17.210 Nicotine dependence, cigarettes, uncomplicated; Z96.41 Presence of insulin pump (external) (internal); Z79.4 Long term (current) use of insulin; Z79.82 Long term (current) use of aspirin; Z79.899 Other long term (current) drug therapy; Z98.51 Tubal ligation status
CPT/HCPCS: 0241U; 36415; 71046; 80048; 80076; 82947; 85025; 99284

== ENCOUNTER 2023-09-23 19:19 | Emergency (ER) | payer OTHER, SELFPAY ==
[2023-09-23 19:30] VITALS: BP 111/64; PULSE 70; RESP 14; O2SAT 96; O2SAT 98; BMI 31.4
[2023-09-23 19:34] LABS: Glucose, Whole Blood 82 mg/dL (60-115)
--- NOTE | 2023-09-23 19:35 | PC.NURSE ---
cupola charger aware of need for sitter. pt changed to hospital clothes.
[2023-09-23 19:39] VITALS: BP 122/72; PULSE 63; RESP 12; TEMP 36.4; O2SAT 97
[2023-09-23 19:44] LABS: MANUAL DIFF FLAG NO
[2023-09-23 19:46] LABS: Eosinophils Percent Auto 0.3 % (0-4); Hematocrit 43.9 % (37.0-47.0); Hemoglobin 15.1 g/dl (12.0-16.0); Imm Gran Abs Auto 0.02 X10*3/uL (0.00-0.03); Imm Gran Pct Auto 0.2 % (0.0-0.4); Lymphocytes Absolute Auto 3.1 X10*3/uL (1.2-4.9); Lymphocytes Percent Auto 30.9 % (20-40); Mean Corpuscular HGB Conc 34.4 g/dl (31.0-35.0); Mean Corpuscular Hemoglobin 29.8 pg (27.0-33.0); Mean Corpuscular Volume 86.6 fL (80.0-98.0); Mean Platelet Volume 10.6 fL (9.4-12.3); Monocytes Absolute Auto 0.5 X10*3/uL (0.1-1.2); Monocytes Percent Auto 5.3 % (2-11); Neutrophils Absolute Auto 6.3 x10*3/uL (2.0-8.3); Neutrophils Percent Auto 63.3 % (45-73); Platelet Count 245 X10*3/uL (160-400); Red Blood Count 5.07 X10*6/uL (4.20-5.50); Red Cell Distribution Width 12.9 % (11.0-16.0)
--- NOTE | 2023-09-23 19:58 | PC.NURSE ---
pt changed over by security belongings secured. 1:1 sitter at bedside. handover report to Juliette LUNA.
[2023-09-23 20:15] LABS: Alanine Aminotransferase 76 U/L (0-31); Albumin Level 4.2 g/dL (3.5-5.0); Alkaline Phosphatase 89 U/L (39-117); Anion Gap 14 (12-20); Aspartate Amino Transferase 51 U/L (5-31); Bilirubin Total 0.2 mg/dL (0.0-1.0); Blood Urea Nitrogen 14 mg/dL (9-16); Calcium 9.4 mg/dL (8.4-10.2); Carbon Dioxide 25 mmol/L (22-29); Chloride 101 mmol/L (96-108); Creatinine Clr Calc Pharmacy 97.7; Estimated Glomerular Filt Rate > 60; Ethanol 230 mg/dL; Glucose Random 56 mg/dL (60-115); Potassium 3.5 mmol/L (3.3-5.1); Sodium 136 mmol/L (135-145); Total Protein 7.9 g/dL (6.5-8.0)
--- NOTE | 2023-09-23 20:27 | ED_ITS ---
HPI - General Adult General Chief complaint: General Medical Stated complaint: Unresponsive, hypoglecemia POC 45, gave dextrose Time Seen by Provider: 09/23/23 20:19 Source: patient and EMS Mode of arrival: EMS Limitations: no limitations History of Present Illness HPI narrative: Patient comes to emergency room by ambulance. Earlier today, patient was found at home unresponsive by her fiance. When EMS arrived, patient's glucose was in the low 40s. Patient was given dextrose EN route to the hospital. When patient arrived, patient awake, alert. Patient states that she feels very depressed, recently started drinking alcohol again, states that she feels under appreciated by her fiance and his children. She states that she does not out for them but they do not help her in anyway although she does not ask for help. Patient states that last week was her mother's anniversary, patient asked for family to take her to the [place] but no one took her. Patient states the patient has been sober, but recently due to family problems she started drinking again. Patient would like to have help to stop drinking. Patient reports vague SI, no HI. Related Data Home Medications Medication Instructions Recorded Confirmed albuterol sulfate 90 mcg/actuation 2 puff inhalation Q6H PRN wheezing 10/04/20 06/06/21 aerosol inhaler aspirin 81 mg tablet,delayed 81 mg PO DAILY 10/04/20 06/06/21 release fluticasone propionate 220 2 puff PO BID 10/04/20 06/06/21 mcg/actuation HFA aerosol inhaler (Flovent HFA) ipratropium 0.5 mg-albuterol 3 mg 1 vial inhalation Q6H PRN wheezing 10/04/20 06/06/21 (2.5 mg base)/3 mL nebulization soln subcutaneous insulin pump 10/04/20 05/07/21 sumatriptan succinate 50 mg tablet 50 mg PO DAILY MRX1 PRN Headache 10/04/20 06/06/21 cetirizine 10 mg tablet 1 tab PO BID 06/06/21 06/06/21 famotidine 20 mg tablet (Pepcid) 20 mg PO DAILY 06/06/21 06/06/21 insulin lispro 100 unit/mL See Rx Instructions .Route .COMPLEX 06/06/21 06/06/21 subcutaneous solution (Humalog U-100 Insulin) Previous Rx's Medication Instructions Recorded lorazepam 1 mg tablet (Ativan) 1 mg PO BID PRN anxiety #14 tabs 12/15/20 azithromycin 500 mg tablet 500 mg PO DAILY 3 days #3 tabs 06/08/21 benzonatate 100 mg capsule 100 mg PO TID PRN Cough #21 caps 06/08/21 cefuroxime axetil 500 mg tablet 500 mg PO Q12H 7 days #14 tabs 06/08/21 prednisone 20 mg tablet 40 mg (2 x 20 mg) PO DAILY #30 tabs 06/08/21 ondansetron 4 mg disintegrating 4 mg PO Q6H PRN nausea and 09/29/21 tablet vomiting #10 tabs cefuroxime axetil 250 mg tablet 250 mg PO BID 7 days #14 tabs 07/16/22 lorazepam 1 mg tablet (Ativan) 1 mg PO BID PRN alcohol withdrawal 07/16/22 #7 tabs ondansetron 4 mg disintegrating 4 mg PO Q6-8H PRN nausea and 07/16/22 tablet vomiting #10 tabs azithromycin 250 mg tablet 250 mg PO DAILY 4 days #4 tabs 05/19/23 prednisone 50 mg tablet 50 mg PO DAILY 4 days #4 tabs 05/19/23 glucagon 1 mg solution for 1 mg subcut Q20M PRN hypoglycemia 09/23/23 injection (Glucagon Emergency Kit) #1 ea Allergies Allergy/AdvReac Type Severity Reaction Status Date / Time ibuprofen [IBUPROFEN] Allergy Unknown LIGHTHEADED;FEELS Verified 05/19/23 15:15 LIKE CHEST IS CLOSING IN;CLAUSTROPHOBIC Review of Systems 2 Review of Systems: Constitutional : No Weight loss, No Fever, No Chills, No Night Sweats, No Fatigue, No Malaise ENT/Mouth : No Hearing loss, No Ear Pain, No Nasal Congestion, No Sinus Pain, No Hoarseness, No sore throat, No Rhinorrhea, No Swallowing Difficulty Eyes: No Eye Pain, No Swelling, No Redness, No Foreign Body, No Discharge, No Vision Changes Cardiovascular : No Chest Pain, No SOB, No Dyspnea on Exertion, No Orthopnea, No Edema, No Palpitations Respiratory : No Cough, No Sputum, No Wheezing, No Smoke Exposure, No Dyspnea Gastrointestinal : No Nausea, No Vomiting, No Diarrhea, No Constipation, No abdominal Pain, No Hematochezia, No Melena Genitourinary : no irregular bleeding, No Dysuria, No Urinary Frequency, No Hematuria, No Urinary Incontinence, No Urgency, No Flank Pain, No Urinary Flow Changes, No Hesitancy Musculoskeletal : No joint pain, No Myalgias, No Joint Swelling Skin : No Skin Lesions, No rash Neuro : No Weakness, No Numbness, No Paresthesias, No Loss of Consciousness, No Dizziness, No Headache Psych : Anxiety, depression, vague SI, relapsed, drinking alcohol again Heme/Lymph: No Bruising, No Bleeding,No Lymphadenopathy Endocrine : No Polyuria, No Polydipsia, No Temperature Intolerance, low glucose PMFSH Past Medical History Medical History Opioid use disorder Hypoxia Moderate obesity Hypercapnic respiratory failure, chronic Asthma Drug overdose Diabetes Transaminitis Pneumonia Pneumonia Post-tubal ligation syndrome Drug abuse in remission Asthma Diabetic acetonemia Social History Social History Household Members: Significant Other Household Members Other:: 1 Housing: House Do you presently have visiting nurse or other home services: No Alcohol intake: current Alcohol intake frequency: 3 or more drinks per day Alcohol type: hard liquor Comment: pt does call with help w IV pole when OOB to bathroom Patient Tobacco Use Status: Current everyday Tobacco user Tobacco use type: Cigarette Cigarette Packs Per Day: 1 Cigarettes Per Day: 20 Years Smoked: 20 Smoked in Last 30 Days: Yes e-Cigarette/Vaping Use: Never Used Second Hand Smoke Exposure: Yes Use of substances other than those prescribed or required for medical reasons: No Substance Use Type: Opiates Advance Directives: No Advance Directives Information Provided: No Advance Directives Date on File: 06/07/21 service: No Current occupational status: unemployed Physical Exam ED Vital Signs: Vital Signs - 24 hr 09/23/23 19:30 09/23/23 19:39 Temperature 97.6 F Pulse Rate 70 63 Respiratory Rate 14 12 Blood Pressure 122/72 Pulse Oximetry 98 97 Oxygen Delivery Method Room Air Room Air BMI result Body Mass Index 31.4 Const Other: Appearance: Alert. Oriented X3. No acute distress. Eyes: Pupils equal, round and reactive to light. ENT: Pharynx normal. Neck: Normal inspection. Neck supple. No lymph nodes noted. No crepitus CVS: Normal heart rate and rhythm. Pulses normal. Normal S1 and S2 Respiratory: No respiratory distress. Breath sounds normal. No Wheezing. No rales Abdomen: Soft and nontender. No rigidity. No distention. Skin: Skin warm and dry. Normal skin color. Normal skin turgor. Extremities: No lower extremity edema. No Lacerations. No Rash Neuro: Oriented X 3. No motor deficit. No sensory deficit. Moving all extremities. No slurred speech. CN 2 through 12 grossly intact Psych: calm, cooperative, tearful Course Course Course Narrative: - Medical Decision Making Medical Decision Making [facility] Narrative: -my interpretation of labs: Normal hematology,, electrolytes within normal limits, glucose 56, LFTs bumped at baseline., ETOH 230 -urinalysis and urine toxicology pending -patient's glucose is 56, patient awake, alert and oriented x3, asymptomatic. Patient was given p.o. 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 Requesting to be discharged. -patient alert and oriented x3, no acute distress, walking independently steady gait, clinically sober -patient is not on a Section 12, patient requesting to be discharged. Differential Diagnosis Differential Diagnoses: The differential diagnosis associated with the presentation includes (Anxiety, depression, polysubstance abuse, alcohol intoxication) Admission/Observation Consideration of admission/observation: Escalation of care including admission/observation considered (Patient waiting for the care team to be seen and determine disposition) Lab Data [facility] Lab Attestation statement: I reviewed the patient's lab results. 09/23/23 19:40 09/23/23 19:40 Labs: Lab Results 09/23/23 09/23/23 09/23/23 Range/Units 19:30 19:40 20:45 WBC 10.0 (4.8-10.8) X10*3/uL RBC 5.07 (4.20-5.50) X10*6/uL Hgb 15.1 (12.0-16.0) g/dl Hct 43.9 (37.0-47.0) % MCV 86.6 (80.0-98.0) fL MCH 29.8 (27.0-33.0) pg MCHC 34.4 (31.0-35.0) g/dl RDW 12.9 (11.0-16.0) % Plt Count 245 (160-400) X10*3/uL MPV 10.6 (9.4-12.3) fL Immature Gran % (Auto) 0.2 (0.0-0.4) % Neut % (Auto) 63.3 (45-73) % Lymph % (Auto) 30.9 (20-40) % Frio % (Auto) 5.3 (2-11) % Eos % (Auto) 0.3 (0-4) % Baso % (Auto) 0.0 (0-2) % Lymph # (Auto) 3.1 (1.2-4.9) X10*3/uL Frio # (Auto) 0.5 (0.1-1.2) X10*3/uL Eos # (Auto) 0.0 (0.0-0.4) X10*3/uL Baso # (Auto) 0.0 (0.0-0.2) X10*3/uL Abs Immat Gran (auto) 0.02 (0.00-0.03) X10*3/uL Absolute Neuts (auto) 6.3 (2.0-8.3) x10*3/uL Absolute Nucleated RBC 0.000 (0.0-0.012) X10*3/uL Nucleated RBC % (auto) 0.0 (0.0-0.2) /100WBC Sodium 136 (135-145) mmol/L Potassium 3.5 (3.3-5.1) mmol/L Chloride 101 (96-108) mmol/L Carbon Dioxide 25 (22-29) mmol/L Anion Gap 14 (12-20) BUN 14 (9-16) mg/dL Creatinine 0.68 (0.5-1.4) mg/dL Estim Creat Clear Calc 97.7 Estimated GFR > 60 POC Glucose 82 95 (60-115) mg/dL Random Glucose 56 L* (60-115) mg/dL Calcium 9.4 (8.4-10.2) mg/dL Total Bilirubin 0.2 (0.0-1.0) mg/dL AST 51 H (5-31) U/L ALT 76 H (0-31) U/L Alkaline Phosphatase 89 (39-117) U/L Total Protein 7.9 (6.5-8.0) g/dL Albumin 4.2 (3.5-5.0) g/dL Ethyl Alcohol 230 mg/dL 09/23/23 Range/Units 22:00 WBC (4.8-10.8) X10*3/uL RBC (4.20-5.50) X10*6/uL Hgb (12.0-16.0) g/dl Hct (37.0-47.0) % MCV (80.0-98.0) fL MCH (27.0-33.0) pg MCHC (31.0-35.0) g/dl RDW (11.0-16.0) % Plt Count (160-400) X10*3/uL MPV (9.4-12.3) fL Immature Gran % (Auto) (0.0-0.4) % Neut % (Auto) (45-73) % Lymph % (Auto) (20-40) % Frio % (Auto) (2-11) % Eos % (Auto) (0-4) % Baso % (Auto) (0-2) % Lymph # (Auto) (1.2-4.9) X10*3/uL Frio # (Auto) (0.1-1.2) X10*3/uL Eos # (Auto) (0.0-0.4) X10*3/uL Baso # (Auto) (0.0-0.2) X10*3/uL Abs Immat Gran (auto) (0.00-0.03) X10*3/uL Absolute Neuts (auto) (2.0-8.3) x10*3/uL Absolute Nucleated RBC (0.0-0.012) X10*3/uL Nucleated RBC % (auto) (0.0-0.2) /100WBC Sodium (135-145) mmol/L Potassium (3.3-5.1) mmol/L Chloride (96-108) mmol/L Carbon Dioxide (22-29) mmol/L Anion Gap (12-20) BUN (9-16) mg/dL Creatinine (0.5-1.4) mg/dL Estim Creat Clear Calc Estimated GFR POC Glucose 116 H (60-115) mg/dL Random Glucose (60-115) mg/dL Calcium (8.4-10.2) mg/dL Total Bilirubin (0.0-1.0) mg/dL AST (5-31) U/L ALT (0-31) U/L Alkaline Phosphatase (39-117) U/L Total Protein (6.5-8.0) g/dL Albumin (3.5-5.0) g/dL Ethyl Alcohol mg/dL Critical Care Time Critical Care Time Critical Care Time: Yes Total Critical Care Time: 45 Attestation: I have personally provided critical care time. Time includes review of lab data, radiology results, discussion with consultants, and monitoring for potential decompensation. Intervention performed as documented. Discharge Plan Discharge Clinical Impression: Hypoglycemia, Depression, Alcohol intoxication Patient Disposition: Home, Self-Care Instructions: Depression (ED), Abuse of Alcohol (ED), What to Do if Your Blood Sugar is Low (ED) Additional Instructions: Please follow-up with your primary care physician tomorrow. If you have any worsening or new symptoms, please return to the emergency room or call 911 Prescriptions: New Glucagon Emergency Kit (human) 1 mg recon soln 1 mg subcut Q20M PRN (Reason: hypoglycemia) Qty: 1 0RF Rx Instructions: until target blood sugar attained No Action ipratropium-albuterol 0.5 mg-3 mg(2.5 mg base)/3 mL solution for nebulization 1 vial inhalation Q6H PRN (Reason: wheezing) Flovent HFA 220 mcg/actuation HFA aerosol inhaler 2 puff PO BID albuterol sulfate 90 mcg/actuation HFA aerosol inhaler 2 puff inhalation Q6H PRN (Reason: wheezing) sumatriptan succinate 50 mg Tablet 50 mg PO DAILY MRX1 MDD 2 TABLETS PRN (Reason: Headache) aspirin 81 mg Tablet,Delayed Release (Dr/Ec) 81 mg PO DAILY (DME) subcutaneous insulin pump Misc MISCELLANEOUS lorazepam [Ativan] 1 mg tablet 1 mg PO BID PRN (Reason: anxiety) Qty: 14 0RF ondansetron 4 mg tablet,disintegrating 4 mg PO Q6H PRN (Reason: nausea and vomiting) Qty: 10 0RF cefuroxime axetil 250 mg tablet 250 mg PO BID 7 Days Qty: 14 0RF lorazepam [Ativan] 1 mg tablet 1 mg PO BID PRN (Reason: alcohol withdrawal) Qty: 7 0RF ondansetron 4 mg tablet,disintegrating 4 mg PO Q6-8H PRN (Reason: nausea and vomiting) Qty: 10 0RF cetirizine 10 mg tablet 1 tab PO BID insulin lispro [Humalog U-100 Insulin] 100 unit/mL solution See Rx Instructions .ROUTE .COMPLEX Rx Instructions: INJECT UP TO 80 UNITS ONCE DAY VIA SUBCUTANUOUS INFUSION VIA INSULIN PUMP famotidine [Pepcid] 20 mg Tablet 20 mg PO DAILY prednisone 20 mg tablet 40 mg PO DAILY Qty: 30 0RF Rx Instructions: Take prednisone 20 mg 2 tabs (40 mg) daily for 1 week, then take prednisone 20 mg daily, further taper per PCP cefuroxime axetil 500 mg tablet 500 mg PO Q12H 7 Days Qty: 14 0RF azithromycin 500 mg tablet 500 mg PO DAILY 3 Days Qty: 3 0RF benzonatate 100 mg Capsule 100 mg PO TID PRN (Reason: Cough) Qty: 21 0RF prednisone 50 mg tablet 50 mg PO DAILY 4 Days Qty: 4 0RF azithromycin 250 mg tablet 250 mg PO DAILY 4 Days Qty: 4 0RF Rx Instructions: start on day 2 of therapy
[2023-09-23 21:57] LABS: Glucose, Whole Blood 95 mg/dL (60-115)
[2023-09-23 22:03] LABS: Glucose, Whole Blood 116 mg/dL (60-115)
--- NOTE | 2023-09-23 22:03 | PC.NURSE ---
Pt is stating she wants to leave and will leave AMA. I discussed this with Dr Anne who will be speaking with the patient. Pt POC obtained, 116, result reported to .
[2023-09-23 22:27] VITALS: BP 132/80; PULSE 80; RESP 16; TEMP 37; O2SAT 96
[2023-09-23 22:59] VITALS: BP 132/80; PULSE 80; RESP 16; TEMP 37; O2SAT 96
== END 2023-09-23 22:39 | disposition home or self-care (01) ==
PROVIDERS: Emergency Provider Emergency Medicine
DX: E11.649 Type 2 diabetes mellitus with hypoglycemia without coma (principal); F10.129 Alcohol abuse with intoxication, unspecified; Y90.7 Blood alcohol level of 200-239 mg/100 ml; F32.A Depression, unspecified; J45.909 Unspecified asthma, uncomplicated
CPT/HCPCS: 36415; 80053; 80307; 82947; 85025; 99284

== ENCOUNTER 2023-10-23 16:45 | Inpatient (IN) | payer OTHER, SELFPAY ==
--- NOTE | 2023-10-23 17:02 | ED.PSYCH ---
HPI - Psych General Chief Complaint: Psychiatric Symptoms Stated Complaint: alcohol relapse after sobriety, depressed and SI Time Seen by Provider: 10/23/23 16:58 Source: patient Mode of arrival: EMS Limitations: no limitations History of Present Illness HPI Narrative: 48-year-old female with a history of opiate use disorder, asthma, diabetes mellitus, transaminitis, alcohol use disorder who presents emergency department for evaluation of suicidal ideation and requesting detox. Patient states that she was sober for approximately 1 year but started drinking proximally 2 weeks prior. She states that she drinks vodka and cranberry juice daily but can not quantify how much she drinks. She states that she was triggered by her family situation. She states that her fiancee's kids who are 23 and 28 years old have been lying to her and taking advantage of her. She states that her fiance will not stick up for her and this made her upset therefore she started drinking again. She also believes that she is let her own son down. She also states that she can not be a hero anymore and take care of everybody. She also states that she feels like she does not want to live anymore. Patient states that she is having suicidal thoughts but will not commit suicide since her grandfather on her mother's side committed suicide and she would never do this to her family. The patient does smoke cigarettes. She drinks alcohol. She states that she was using injection heroin but has not used in over a year. Related Data Home Medications ?Medication ?Instructions ?Recorded ?Confirmed subcutaneous insulin pump 10/04/20 05/07/21 albuterol sulfate 90 mcg/actuation 2 puff inhalation Q6H PRN wheezing 10/23/23 10/23/23 aerosol inhaler (Ventolin HFA) beclomethasone dipropionate 80 1 inh inhalation BID 10/23/23 10/23/23 mcg/actuation HFA breath activated aerosol (Qvar RediHaler) blood-glucose sensor (Dexcom G6 10/23/23 10/23/23 Sensor device) blood-glucose transmitter (Dexcom 10/23/23 10/23/23 G6 Transmitter device) docusate sodium 100 mg capsule 100 mg PO BID PRN constipation 10/23/23 10/23/23 glucagon 1 mg solution for 1 mg subcut NEEDED hypoglycemia 10/23/23 10/23/23 injection (Glucagon Emergency Kit) insulin lispro 100 unit/mL 0 - 80 unit subcut DAILY 10/23/23 10/23/23 subcutaneous solution ipratropium 0.5 mg-albuterol 3 mg 3 ml inhalation QID PRN wheezing 10/23/23 10/23/23 (2.5 mg base)/3 mL nebulization soln Allergies Allergy/AdvReac Type Severity Reaction Status Date / Time ibuprofen [IBUPROFEN] Allergy Severe LIGHTHEADED;FEELS Verified 10/23/23 17:19 LIKE CHEST IS CLOSING IN;CLAUSTROPHOBIC Review of Systems Review of Systems: Yes all other systems are reviewed and are negative [facility] Past Medical History [facility] Narrative: Social history: She does smoke cigarettes. She drinks alcohol but can not quantify how much she drinks a day. She has a former injection heroin user but states she has not used in over a year. Medical History Opioid use disorder Hypoxia Moderate obesity Hypercapnic respiratory failure, chronic Asthma Drug overdose Diabetes Transaminitis Pneumonia Pneumonia Post-tubal ligation syndrome Drug abuse in remission Asthma Diabetic acetonemia Social History Social History Household Members: Significant Other Household Members Other:: 1 Housing: House Do you presently have visiting nurse or other home services: No Alcohol intake: current Alcohol intake frequency: 3 or more drinks per day Alcohol type: hard liquor Comment: pt does call with help w IV pole when OOB to bathroom Patient Tobacco Use Status: Current everyday Tobacco user Tobacco use type: Cigarette Cigarette Packs Per Day: 1 Cigarettes Per Day: 20 Years Smoked: 20 Smoked in Last 30 Days: Yes e-Cigarette/Vaping Use: Never Used Second Hand Smoke Exposure: Yes Use of substances other than those prescribed or required for medical reasons: No Substance Use Type: Opiates Advance Directives: Yes Advance Directives Information Provided: No Advance Directives on File: No Advance Directives Date on File: 06/07/21 Do you have a plan to hurt others: No Plan Patient : No service: No Current occupational status: unemployed Physical Exam Vital Signs: Vital Signs: Last Vital Signs Temp 97.6 F 10/23/23 17:27 Pulse 89 10/23/23 17:27 Resp 18 04/23/24 17:27 BP 120/86 10/23/23 17:27 Pulse Ox 97 10/23/23 17:27 O2 Del Method Room Air 10/23/23 17:27 BMI result Body Mass Index 30.3 Vital signs were normal Exam: General: Awake, tearful, strong odor of alcohol on her breath Head: Normocephalic, atraumatic EENT: PERRL, Lids normal, sclera normal, conjunctiva normal, nose normal , ears normal, throat without erythema or exudates Neck: Supple, no adenopathy Lung: breath sounds symmetric, no wheezing, rales or rhonchi Chest: symmetric movement, nontender Heart: regular rate and rhythm, normal S1, S2 no murmurs or rubs Abdomen: soft, non-tender, nondistended, normal bowel sounds Back: no vertebral tenderness, no CVAT Extremities: no deformities, moves all extremities symmetrically Neuro: Awake, alert, oriented, normal speech, cranial nerves intact, moves all extremities symmetrically Psych: Patient appears to be intoxicated, she was anxious and tearful, does answer questions appropriately Medications Administered Discontinued Medications Generic Name Dose Route Start Last Admin Trade Name Freq PRN Reason Stop Dose Admin Lorazepam 1 mg 10/23/23 18:07 10/23/23 18:14 Lorazepam 1 Mg Tablet PO 10/23/23 18:08 1 mg ONCE ONE Administration Medical Decision Making Medical Decision Making MDM Narrative: 48-year-old female with a history of opiate use disorder, asthma, diabetes mellitus, transaminitis, alcohol use disorder who presents emergency department for evaluation of suicidal ideation, acute alcohol intoxication and requesting detox. Patient states that she does not feel like she wants to live anymore but does not have a plan to harm herself. She states that she triggered by family stressors. Vital signs were normal. Physical examination was consistent with acute alcohol intoxication Differential diagnosis: ?Includes but is not limited to acute alcohol intoxication, substance use disorder, depression, anxiety, suicidal ideation, anemia, electrolyte abnormalities Following evaluation was ordered: CBC, CMP, drug screen urine, ethanol level, urine test, urinalysis Patient was initially treated with the following: Ativan 1 mg orally Course: 22:42 Start physician observation My independent interpretation patient's laboratory evaluation is as follows: CBC was normal. CMP was normal except for an elevated AST and ALT of 67 and 76-this is chronic. Ethanol level was elevated at 255 which is consistent with acute alcohol intoxication. Urinalysis was positive for protein, microscopic revealed 0-2 RBCs, 0-5 WBCs, 0-2 squamous cells, 4+ bacteria. Patient does not have significant number of white blood cells but did have a significant number of bacteria-she had a similar urinalysis 07/16/2022 and did grow E coli therefore I will start the patient on cefuroxime 250 mg q.12 hours x5 days. Given her elevated ethanol level of 255, the patient will need to be observed in the emergency department until around 03:00 hours when she may be sober enough to talk to the care team. At the end of my shift, the patient's care was turned over to my colleague, Dr. Radha Ernandez. Admission/Observation Consideration of admission/observation: Escalation of care including admission/observation considered Lab Data MDM Lab Attestation statement: I reviewed the patient's lab results. 10/23/23 17:24 10/23/23 17:24 Labs: Lab Results 10/23/23 10/23/23 Range/Units 17:06 17:24 WBC 10.4 (4.8-10.8) X10*3/uL RBC 5.03 (4.20-5.50) X10*6/uL Hgb 14.8 (12.0-16.0) g/dl Hct 42.5 (37.0-47.0) % MCV 84.5 (80.0-98.0) fL MCH 29.4 (27.0-33.0) pg MCHC 34.8 (31.0-35.0) g/dl RDW 12.7 (11.0-16.0) % Plt Count 247 (160-400) X10*3/uL MPV 10.7 (9.4-12.3) fL Immature Gran % (Auto) 0.3 (0.0-0.4) % Neut % (Auto) 57.1 (45-73) % Lymph % (Auto) 36.4 (20-40) % [place] % (Auto) 5.9 (2-11) % Eos % (Auto) 0.3 (0-4) % Baso % (Auto) 0.0 (0-2) % Lymph # (Auto) 3.8 (1.2-4.9) X10*3/uL [place] # (Auto) 0.6 (0.1-1.2) X10*3/uL Eos # (Auto) 0.0 (0.0-0.4) X10*3/uL Baso # (Auto) 0.0 (0.0-0.2) X10*3/uL Abs Immat Gran (auto) 0.03 (0.00-0.03) X10*3/uL Absolute Neuts (auto) 5.9 (2.0-8.3) x10*3/uL Absolute Nucleated RBC 0.000 (0.0-0.012) X10*3/uL Nucleated RBC % (auto) 0.0 (0.0-0.2) /100WBC Sodium 136 (135-145) mmol/L Potassium 3.8 (3.3-5.1) mmol/L Chloride 103 (96-108) mmol/L Carbon Dioxide 26 (22-29) mmol/L Anion Gap 11 L (12-20) BUN 10 (9-16) mg/dL Creatinine 0.69 (0.5-1.4) mg/dL Estim Creat Clear Calc 83.6 Estimated GFR > 60 Random Glucose 97 (60-115) mg/dL Calcium 8.8 D (8.4-10.2) mg/dL Total Bilirubin 0.2 (0.0-1.0) mg/dL AST 67 H (5-31) U/L ALT 76 H (0-31) U/L Alkaline Phosphatase 95 (39-117) U/L Total Protein 7.7 (6.5-8.0) g/dL Albumin 3.9 (3.5-5.0) g/dL Urine Color Yellow Urine Appearance Cloudy Urine pH 5.5 (5.0-9.0) Ur Specific [place] 1.010 (1.005-1.025) Urine Protein 100 (2+) H (Neg-Trace) mg/dL Urine Glucose (UA) Negative (Negative) mg/dL Urine Ketones Negative (Negative) mg/dL Urine Blood Negative (Negative) Urine Nitrite Negative (Negative) Ur Leukocyte Esterase Negative (Negative) Urine RBC 0-2 (0-2) /HPF Urine WBC 0-5 (0-5) /HPF Ur Squamous Epith Cells 0-2 (0-2) /HPF Urine Bacteria 4+ (None Seen) Hyaline Casts 0-2 (0-2) /LPF Urine Test NEGATIVE (NEGATIVE) Urine Opiates Screen Not Detected (Not Detect) Ur Buprenorphine Scrn Not Detected (Not Detect) ng/mL Ur Oxycodone Screen Not Detected (Not Detect) ng/mL Urine Methadone Screen Not Detected (Not Detect) ng/mL Urine Fentanyl Screen Not Detected (Not Detect) Ur Barbiturates Screen Not Detected (Not Detect) Ur Phencyclidine Scrn Not Detected (Not Detect) Ur Amphetamines Screen Not Detected (Not Detect) U Benzodiazepines Scrn Not Detected (Not Detect) Urine Cocaine Screen Not Detected (Not Detect) U Marijuana (THC) Screen Not Detected (Not Detect) Ethyl Alcohol 255 mg/dL Discharge Plan Discharge Clinical Impression: Suicidal ideation, Alcohol use disorder, Alcohol intoxication Patient Disposition: Still a Patient Prescriptions: No Action (DME) subcutaneous insulin pump Misc MISCELLANEOUS ipratropium-albuterol 0.5 mg-3 mg(2.5 mg base)/3 mL solution for nebulization 3 ml inhalation QID PRN (Reason: wheezing) docusate sodium 100 mg capsule 100 mg PO BID PRN (Reason: constipation) insulin lispro 100 unit/mL solution 0 - 80 unit subcut DAILY Glucagon Emergency Kit (human) 1 mg recon soln 1 mg subcut NEEDED albuterol sulfate [Ventolin HFA] 90 mcg/actuation HFA aerosol inhaler 2 puff inhalation Q6H PRN (Reason: wheezing) (DME) Dexcom G6 Sensor Device MISCELLANEOUS Q10D (DME) Dexcom G6 Transmitter Device MISCELLANEOUS Qvar RediHaler 80 mcg/actuation HFA aerosol breath activated 1 inh INHALATION BID Interventions: [place]-Suicide Risk Severity Scale Last Done: 10/23/23 17:20 Print Language: Finnish
[2023-10-23 17:16] VITALS: BP 142/96; PULSE 77; O2SAT 100
[2023-10-23 17:17] VITALS: BP 120/86; PULSE 89; RESP 18; TEMP 36.4; O2SAT 97; BMI 30.3
[2023-10-23 17:27] VITALS: BP 120/86; PULSE 89; RESP 18; TEMP 36.4; O2SAT 97
[2023-10-23 17:32] LABS: UPreg QC Valid YES; Urine Pregnancy NEGATIVE (NEGATIVE)
[2023-10-23 17:33] LABS: Appearance Urine Cloudy; Color Urine Yellow; Glucose Urine UA Negative (Negative); Leukocyte Esterase Urine Negative (Negative); Nitrite Urine Negative (Negative); PH 5.5 (5.0-9.0); UMIC TRIGGER UACC YES; Urine Blood Negative (Negative); Urine Ketones Negative (Negative); Urine Protein 100 (2+) mg/dL (Neg-Trace)
[2023-10-23 17:39] LABS: Bacteria Urine 4+ (None Seen); Hyaline Casts Urine 0-2 /LPF (0-2); RBC Urine 0-2 /HPF (0-2); Squamous Epithelial Cell Urine 0-2 /HPF (0-2); WBC Urine 0-5 /HPF (0-5)
[2023-10-23 17:41] LABS: MANUAL DIFF FLAG NO
[2023-10-23 17:45] LABS: Eosinophils Percent Auto 0.3 % (0-4); Hematocrit 42.5 % (37.0-47.0); Hemoglobin 14.8 g/dl (12.0-16.0); Imm Gran Abs Auto 0.03 X10*3/uL (0.00-0.03); Imm Gran Pct Auto 0.3 % (0.0-0.4); Lymphocytes Absolute Auto 3.8 X10*3/uL (1.2-4.9); Lymphocytes Percent Auto 36.4 % (20-40); Mean Corpuscular HGB Conc 34.8 g/dl (31.0-35.0); Mean Corpuscular Hemoglobin 29.4 pg (27.0-33.0); Mean Corpuscular Volume 84.5 fL (80.0-98.0); Mean Platelet Volume 10.7 fL (9.4-12.3); Monocytes Absolute Auto 0.6 X10*3/uL (0.1-1.2); Monocytes Percent Auto 5.9 % (2-11); Neutrophils Absolute Auto 5.9 x10*3/uL (2.0-8.3); Neutrophils Percent Auto 57.1 % (45-73); Platelet Count 247 X10*3/uL (160-400); Red Blood Count 5.03 X10*6/uL (4.20-5.50); Red Cell Distribution Width 12.7 % (11.0-16.0); White Blood Count 10.4 X10*3/uL (4.8-10.8)
[2023-10-23 17:46] LABS: Amphetamine Screen Urine Not Detected (Not Detect); Barbiturates, Urine Not Detected (Not Detect); Benzodiazepines Screen Urine Not Detected (Not Detect); Buprenorphine Scr Not Detected (Not Detect); Cannabinoid Screen Urine Not Detected (Not Detect); Cocaine Screen Urine Not Detected (Not Detect); Fentanyl, urine Not Detected (Not Detect); Methadone Screen, Urine Not Detected (Not Detect); Opiate Screen Urine Not Detected (Not Detect); Oxycodone Screen Urine Not Detected (Not Detect); Phencyclidine Screen Urine Not Detected (Not Detect)
[2023-10-23 18:06] LABS: Alanine Aminotransferase 76 U/L (0-31); Albumin Level 3.9 g/dL (3.5-5.0); Alkaline Phosphatase 95 U/L (39-117); Anion Gap 11 (12-20); Aspartate Amino Transferase 67 U/L (5-31); Bilirubin Total 0.2 mg/dL (0.0-1.0); Blood Urea Nitrogen 10 mg/dL (9-16); Calcium 8.8 mg/dL (8.4-10.2); Carbon Dioxide 26 mmol/L (22-29); Chloride 103 mmol/L (96-108); Creatinine Clr Calc Pharmacy 83.6; Estimated Glomerular Filt Rate > 60; Ethanol 255 mg/dL; Glucose Random 97 mg/dL (60-115); Potassium 3.8 mmol/L (3.3-5.1); Sodium 136 mmol/L (135-145); Total Protein 7.7 g/dL (6.5-8.0)
[2023-10-23] MEDS: LORazepam 1 MG TABLET PO (18:14)
--- NOTE | 2023-10-23 18:53 | PC.NURSE ---
Patient would prefer us to reach out to Lino who is her son if we need further information. ([phone]) She also reports that her case workers name is Hazelmiguel ([phone])
--- NOTE | 2023-10-23 19:27 | PC.NURSE ---
patient beligerently arguing she needs to leave, wont accept answers offered. swearing and threatens to call application integration architect to leave immediately.
--- NOTE | 2023-10-23 19:35 | PC.NURSE ---
you just got here bitch ytou dont know my situation encouraged patient to go to room and calm down. calls staff bitch again when t/w went to room to change channel. im being punished for being an alcoholic
--- NOTE | 2023-10-23 19:42 | PC.NURSE ---
client continues to yell at staff despite the fact i have notified her i am documenting her behavior demanding get the doctor to come dc me
--- NOTE | 2023-10-23 20:02 | PC.NURSE ---
you better get your doctor down here in half an hour cause im calling an uber asserting she can leave when she wants.
--- NOTE | 2023-10-23 20:25 | PC.NURSE ---
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
--- NOTE | 2023-10-23 20:27 | PC.NURSE ---
juan been asking nicely to get my things for over two hours
--- NOTE | 2023-10-23 20:33 | PC.NURSE ---
client redirected to keep away from exit doors but wants to convince me she may leave ama, t/w tries to convince otherwise.
--- NOTE | 2023-10-23 20:48 | PC.NURSE ---
patient removed insulin pump threw it at staff, placed in locker.
[2023-10-24 01:17] LABS: COVID-19 Test Negative (Negative); IDNOW Serial# 152EDE1D
[2023-10-24] MEDS: Albuterol Sulfate 90 MCG 8 GM INHALER 2 PUFF INHALE ×4 (01:21→19:58)
[2023-10-24] MEDS: Acetaminophen 325 MG TABLET 650 MG PO ×2 (01:21→19:15)
[2023-10-24 02:15] VITALS: BP 125/71; PULSE 75; RESP 16; TEMP 36.1; O2SAT 97
[2023-10-24 07:26] LABS: Glucose, Whole Blood 126 mg/dL (60-115)
[2023-10-24 07:45] VITALS: BP 123/75; PULSE 78; RESP 19; TEMP 36; O2SAT 95
--- NOTE | 2023-10-24 07:45 | PC.NURSE ---
PT IS A/O X 4 NO SOB/CLINTON NOTED. PT C/O SOB 2NDARY TO HX OF ASTHMA. ALBUTEROL PRN AND BREO SCHEDULED TO BE GIVEN. SPEAKS IN FULL SENTENCES. PT DENIES ANY PAIN/DISC. PT DENIES ANY SI/HI/HALLUCINATIONS. PT HAS AN INSULIN PUMP. POC TAKEN - 126, NO INSULIN COVERAGE. PT ATE BREAKFAST. PT IS SITTING IN COMMON AREA WATCHING TV. PT IS CALM/CO-OP. PT AWARE OF PLAN OF CARE. WILL CONTINUE TO MONITOR.
[2023-10-24] MEDS: Fluticasone Propionate 100 MCG BLST.W.DEV 1 PUFF INHALE ×2 (08:13→19:59)
--- NOTE | 2023-10-24 11:00 | PC.NURSE ---
CARLOS ROMERO (CARE CORDINATOR, INNOVATED PICK UP OPERATOR, ) CALLED AND WAS UPDATED ON THE PT STATUS.
--- NOTE | 2023-10-24 11:03 | PC.NURSE ---
PT TOOK A SHOWER AND CHANGED INTO [facility].
[2023-10-24 12:04] LABS: Glucose, Whole Blood 164 mg/dL (60-115)
--- NOTE | 2023-10-24 13:31 | PC.NURSE ---
RN TO RN REPORT GIVEN TO MICHAEL. PT AWARE OF PLAN OF CARE FOR TRANSFER TO
[2023-10-24] MEDS: SUMAtriptan succinate 50 MG TABLET PO ×2 (13:44→22:43)
[2023-10-24 15:00] VITALS: BP 165/86; PULSE 88; RESP 16; TEMP 36.9; O2SAT 95; BMI 28.0
[2023-10-24 16:58] LABS: Glucose, Whole Blood 239 mg/dL (60-115)
--- NOTE | 2023-10-24 18:18 | PC.ADMIT ---
Addendum entered by Lianne Bustamante RN 10/24/23 18:53: Jenni signed a 3 day notice today. Her POC at 1700 was 239, she still had her insulin pump at this point and coverage provided. Original Note: Jenni was admitted to from [facility] for treatment of bipolar and alcohol use disorder. Jenni was cooperative with skin/safety check and all steps of the admission process. Her skin has no menjivar to note. She is oriented to person place and time. She endorses depression and intermittent anxiety. She sights many stressors at home. She is living with her fiafshine in her step son's house. She reports feeling like I am being lied to, I am giving money for utilities, rent etc and these things are only being partially paid for! Where is the money going? , she reports caring for all the animals in the house and her fiafshine who is sick with cirrhosis . She reports feeling hopeless and like i cant take it anymore! , she reports she started binge drinking every few days for the last few weeks. Then yesterday, she felt worse and wanted to pass out and not wake up. So she drank a liter of vodka. I had been sober for a year! , she is tearful when discussing her relapse. She is IDDM and has an insulin pump and dexcon reader in her left upper arm. Per Dr Thomas, insulin pump was removed by patient and Jenni will be managed with our sliding scale per md orders. She also has asthma and migraines also. Jenni denies urges to harm self and others, she does agree to seek staff if this changes in any way. She denies visual or perceptual disturbances. Jenni is on 15 minute safety checks.
[2023-10-24 19:34] LABS: Glucose, Whole Blood 91 mg/dL (60-115)
[2023-10-24] MEDS: LORazepam 1 MG TABLET 2 MG PO (19:59)
[2023-10-24 20:00] VITALS: BP 149/85; PULSE 83; RESP 14; TEMP 36.6; O2SAT 94
[2023-10-24 20:37] LABS: Glucose, Whole Blood 241 mg/dL (60-115)
[2023-10-24] MEDS: Insulin Lispro 100 UNIT/ML 3 ML VIAL SUBCUT (20:45)
[2023-10-25 06:53] LABS: Glucose, Whole Blood > 600 mg/dL (60-115)
[2023-10-25] MEDS: Albuterol Sulfate 90 MCG 8 GM INHALER 2 PUFF INHALE ×3 (06:59→17:50)
[2023-10-25] MEDS: Fluticasone Propionate 100 MCG BLST.W.DEV 1 PUFF INHALE (06:59)
[2023-10-25] MEDS: Insulin Lispro 100 UNIT/ML 3 ML VIAL SUBCUT ×6 (07:07→20:10)
[2023-10-25 07:45] VITALS: BP 130/70; PULSE 85; RESP 16; TEMP 36.5; O2SAT 93
[2023-10-25] MEDS: Folic Acid 1 MG TABLET PO (08:23)
[2023-10-25] MEDS: Multivitamin TABLET 1 TAB PO (08:23)
[2023-10-25] MEDS: Thiamine HCL 100 MG TABLET PO (08:23)
[2023-10-25 08:24] LABS: Estimated Average Glucose 197 mg/dL; Hemoglobin A1c % 8.5 % (<6.0)
[2023-10-25 08:26] LABS: Beta-Hydroxybutyrate 1.38 mmol/L (0.02-0.27)
[2023-10-25 08:28] LABS: Cholesterol 207 mg/dL (<200); HDL Cholesterol 70 mg/dL (>40); LDL Cholesterol Calculated 99 mg/dL (<100); Triglycerides 191 mg/dL (<150)
[2023-10-25 08:36] LABS: Anion Gap 16 (12-20); Blood Urea Nitrogen 27 mg/dL (9-16); Calcium 9.2 mg/dL (8.4-10.2); Carbon Dioxide 22 mmol/L (22-29); Chloride 97 mmol/L (96-108); Creatinine Clr Calc Pharmacy 56.6; Estimated Glomerular Filt Rate > 60; Glucose Random 615 mg/dL (60-115); Potassium 4.5 mmol/L (3.3-5.1); Sodium 130 mmol/L (135-145)
[2023-10-25] MEDS: Insulin Lispro 100 UNIT/ML 3 ML VIAL 15 UNIT SUBCUT (08:49)
[2023-10-25] MEDS: LORazepam 1 MG TABLET PO (09:30)
[2023-10-25 09:32] LABS: VBG Base Excess 0.9 mmol/L; VBG HCO3 27 mmol/L (22-26); VBG pCO2 51 mmHg; VBG pH 7.33 (7.32-7.43); VBG pO2 32 mmHg
[2023-10-25 09:34] LABS: Venous Blood Gas Refer to POC result
[2023-10-25 09:37] LABS: Appearance Urine Cloudy; Color Urine Yellow; Glucose Urine UA >=1000 mg/dL (Negative); Leukocyte Esterase Urine Moderate (2+) (Negative); Nitrite Urine Positive (Negative); PH 5.5 (5.0-9.0); Specific Gravity - Urine 1.025 (1.005-1.025); UMIC TRIGGER UACC YES; Urine Blood Trace (Negative); Urine Ketones Trace mg/dL (Negative); Urine Protein 30 (1+) mg/dL (Neg-Trace)
[2023-10-25 09:41] LABS: Bacteria Urine 4+ (None Seen); Hyaline Casts Urine 0-2 /LPF (0-2); RBC Urine 0-2 /HPF (0-2); Squamous Epithelial Cell Urine 0-2 /HPF (0-2); UACC Culture Trigger YES; WBC Urine >50 /HPF (0-5)
[2023-10-25 10:24] LABS: Glucose, Whole Blood 347 mg/dL (60-115)
--- NOTE | 2023-10-25 11:17 | PM.EVENT ---
Event Note Date of Service: 10/25/23 Event Note: Hospitalist consult for patient on insulin pump that has stopped while on the unit. Patient's blood sugars have been elevated into 600s. Will cover with Lantus 12 units daily and additional Lispro 3 units before meals. Will continue to monitor blood glucose and titrate as necessary. Time Spent With Patient Time: Total time managing care of this patient today ____ minutes.
[2023-10-25 12:34] LABS: Glucose, Whole Blood 120 mg/dL (60-115)
[2023-10-25] MEDS: Insulin Glargine,Hum.rec.anlog 100 UNIT/ML 10 ML VIAL 12 UNIT SUBCUT ×2 (12:39→20:09)
[2023-10-25] MEDS: cefuroxime axetiL 500 MG TABLET PO ×2 (12:39→20:10)
--- NOTE | 2023-10-25 15:51 | PC.NURSE ---
Pt.'s BG was greater than 600 on floor glucometer this morning. Hospitalist contacted and VBG and ABG, and UA were all ordered. UA showed UTI and abx tx was started. Blood draw showed that the BG was 615. 25 units of lispro provided altogether, in two seperate doses, 10 unit and 15 units. Pt. BG checked a couple of hours later, and the reading was 347 at that point-before lunch. Pt approached this magazine writer around 1530 and stated that she feels like her sugar was high again. BG was 416 at this point. This nurse reached back out to Gilbert-hospitalist again, and he put coral 1x dose of 5 units of lispro.
[2023-10-25 15:52] LABS: Glucose, Whole Blood 416 mg/dL (60-115)
[2023-10-25 17:35] LABS: Glucose, Whole Blood 368 mg/dL (60-115)
--- NOTE | 2023-10-25 17:57 | P.HPPS_ITS ---
HPI Date of Service: 10/25/23 Chief Complaint: depression Sources of Information: patient interviewed, chart reviewed and crisis/core team assessment reviewed HPI Subjective Notes: [place] Warning and Conditional Voluntary Narrative: Patient is a 48-year-old female with history of insulin-dependent diabetes on insulin pump, depression, PTSD, alcohol dependence and opioid use disorder in sustained remission, who presents for momentary SI in the face of psychosocial stressors and relapse with alcohol. Patient reports it for about 11 months she has been totally sober from everything, in a good mood despite not being on any medication. Psychosocial stressors have been mounting however the past few months including her partner ill with liver cirrhosis; they live at home with his adult children who according to patient never help out around the house. Patient has been getting overwhelmed with all the chores and hurt feelings with the lack of help and support from her step kids. Patient relapsed with alcohol about 3 weeks ago and started drinking heavily daily, about a L of vodka day. With the alcohol relapse she began to get depressed and the other day made a suicidal comment, saying she wishes she were ; she meant to call AA but accidentally called 911 and as police came she went to the hospital. Patient does not think she needs medication for depression, but maybe some medication for anxiety. She thinks that her depression is situational only and will resolve once she gets back to being sober and gains perspective. Past Psychiatric History: Past psychiatric admissions but not since 2016 here on [facility]; at that time some question of to whether patient was having manic episodes and bipolar though review of notes seems inconclusive given her history of PTSD and heavy substance abuse at the time Med trials: [place] for brief time; no help Zoloft: No help Celexa Medical Evaluation Reviewed: Yes [facility] Medical History (Updated 10/25/23 @ 18:37 by Jake Mckeon MD) PTSD (post-traumatic stress disorder) MDD (major depressive disorder), recurrent episode, moderate Opioid use disorder Hypoxia Moderate obesity Hypercapnic respiratory failure, chronic Asthma Drug overdose Diabetes Transaminitis Pneumonia Pneumonia Post-tubal ligation syndrome Drug abuse in remission Asthma Diabetic acetonemia Family History: Deferred Social History: Lives with her partner and his 2 adult children Substance History: Relapsed on alcohol 3 weeks ago after 11 months of sobriety Sober from opiates for over a year Trauma History: Positive trauma history Diagnostics Vital Signs (24Hr): Vital Signs - 24 hr 10/24/23 20:00 10/25/23 07:45 Temperature 97.8 F 97.7 F Pulse Rate 83 85 Respiratory Rate 14 16 Blood Pressure 149/85 H 130/70 Pulse Oximetry 94 93 Oxygen Delivery Method Room Air Room Air BMI result Body Mass Index 28.0 Labs 10/23/23 17:24 10/25/23 07:53 Labs: Laboratory Results - last 48 hr 10/23/23 10/24/23 10/24/23 17:24 00:59 07:23 VBG pH VBG pCO2 VBG pO2 VBG HCO3 VBG O2 Saturation VBG Base Excess Sodium 136 Potassium 3.8 Chloride 103 Carbon Dioxide 26 Anion Gap 11 L BUN 10 Creatinine 0.69 Estim Creat Clear Calc 83.6 Estimated GFR > 60 POC Glucose 126 H Random Glucose 97 Estimat Average Glucose Hemoglobin A1c % Calcium 8.8 D Total Bilirubin 0.2 AST 67 H ALT 76 H Alkaline Phosphatase 95 Total Protein 7.7 Albumin 3.9 Triglycerides Cholesterol LDL Cholesterol, Calc HDL Cholesterol Beta-Hydroxybutyrate Urine Color Urine Appearance Urine pH Ur Specific Hundred Urine Protein Urine Glucose (UA) Urine Ketones Urine Blood Urine Nitrite Ur Leukocyte Esterase Urine RBC Urine WBC Ur Squamous Epith Cells Urine Bacteria Hyaline Casts Ethyl Alcohol 255 COVID-19 (NUBIA) Negative COVID-19 [employer] See Note 10/24/23 10/24/23 10/24/23 12:01 16:54 19:30 VBG pH VBG pCO2 VBG pO2 VBG HCO3 VBG O2 Saturation VBG Base Excess Sodium Potassium Chloride Carbon Dioxide Anion Gap BUN Creatinine Estim Creat Clear Calc Estimated GFR POC Glucose 164 H 239 H 91 Random Glucose Estimat Average Glucose Hemoglobin A1c % Calcium Total Bilirubin AST ALT Alkaline Phosphatase Total Protein Albumin Triglycerides Cholesterol LDL Cholesterol, Calc HDL Cholesterol Beta-Hydroxybutyrate Urine Color Urine Appearance Urine pH Ur Specific Hundred Urine Protein Urine Glucose (UA) Urine Ketones Urine Blood Urine Nitrite Ur Leukocyte Esterase Urine RBC Urine WBC Ur Squamous Epith Cells Urine Bacteria Hyaline Casts Ethyl Alcohol COVID-19 (NUBIA) COVID-19 [employer] 10/24/23 10/25/23 10/25/23 20:34 06:46 07:53 VBG pH VBG pCO2 VBG pO2 VBG HCO3 VBG O2 Saturation VBG Base Excess Sodium 130 L Potassium 4.5 Chloride 97 Carbon Dioxide 22 Anion Gap 16 BUN 27 H Creatinine 0.98 Estim Creat Clear Calc 56.6 Estimated GFR > 60 POC Glucose 241 H > 600 H* Random Glucose 615 H* Estimat Average Glucose 197 Hemoglobin A1c % 8.5 H Calcium 9.2 Total Bilirubin AST ALT Alkaline Phosphatase Total Protein Albumin Triglycerides 191 H Cholesterol 207 H LDL Cholesterol, Calc 99 HDL Cholesterol 70 Beta-Hydroxybutyrate 1.38 H Urine Color Urine Appearance Urine pH Ur Specific Hundred Urine Protein Urine Glucose (UA) Urine Ketones Urine Blood Urine Nitrite Ur Leukocyte Esterase Urine RBC Urine WBC Ur Squamous Epith Cells Urine Bacteria Hyaline Casts Ethyl Alcohol COVID-19 (NUBIA) COVID-19 [employer] 10/25/23 10/25/23 10/25/23 09:10 09:25 10:20 VBG pH 7.33 VBG pCO2 51 VBG pO2 32 VBG HCO3 27 H VBG O2 Saturation 43.0 VBG Base Excess 0.9 Sodium Potassium Chloride Carbon Dioxide Anion Gap BUN Creatinine Estim Creat Clear Calc Estimated GFR POC Glucose 347 H Random Glucose Estimat Average Glucose Hemoglobin A1c % Calcium Total Bilirubin AST ALT Alkaline Phosphatase Total Protein Albumin Triglycerides Cholesterol LDL Cholesterol, Calc HDL Cholesterol Beta-Hydroxybutyrate Urine Color Yellow Urine Appearance Cloudy Urine pH 5.5 Ur Specific Hundred 1.025 Urine Protein 30 (1+) H Urine Glucose (UA) >=1000 H Urine Ketones Trace Urine Blood Trace H Urine Nitrite Positive H Ur Leukocyte Esterase Moderate (2+) H Urine RBC 0-2 Urine WBC >50 H Ur Squamous Epith Cells 0-2 Urine Bacteria 4+ Hyaline Casts 0-2 Ethyl Alcohol COVID-19 (NUBIA) COVID-19 [employer] 10/25/23 10/25/23 10/25/23 12:29 15:46 17:31 VBG pH VBG pCO2 VBG pO2 VBG HCO3 VBG O2 Saturation VBG Base Excess Sodium Potassium Chloride Carbon Dioxide Anion Gap BUN Creatinine Estim Creat Clear Calc Estimated GFR POC Glucose 120 H 416 H* 368 H* Random Glucose Estimat Average Glucose Hemoglobin A1c % Calcium Total Bilirubin AST ALT Alkaline Phosphatase Total Protein Albumin Triglycerides Cholesterol LDL Cholesterol, Calc HDL Cholesterol Beta-Hydroxybutyrate Urine Color Urine Appearance Urine pH Ur Specific Hundred Urine Protein Urine Glucose (UA) Urine Ketones Urine Blood Urine Nitrite Ur Leukocyte Esterase Urine RBC Urine WBC Ur Squamous Epith Cells Urine Bacteria Hyaline Casts Ethyl Alcohol COVID-19 (NUBIA) COVID-19 [employer] Meds/Allergies Meds Home Medications ?Medication ?Instructions ?Recorded ?Confirmed ?Type subcutaneous insulin pump 10/04/20 10/24/23 History albuterol sulfate 90 mcg/actuation 2 puff inhalation Q6H PRN wheezing 10/23/23 10/24/23 History aerosol inhaler (Ventolin HFA) beclomethasone dipropionate 80 1 inh inhalation BID 10/23/23 10/24/23 History mcg/actuation HFA breath activated aerosol (Qvar RediHaler) blood-glucose sensor (Dexcom G6 10/23/23 10/24/23 History Sensor device) blood-glucose transmitter (Dexcom 10/23/23 10/24/23 History G6 Transmitter device) docusate sodium 100 mg capsule 100 mg PO BID PRN constipation 10/23/23 10/24/23 History glucagon 1 mg solution for 1 mg subcut NEEDED hypoglycemia 10/23/23 10/24/23 History injection (Glucagon Emergency Kit) insulin lispro 100 unit/mL 0 - 80 unit subcut DAILY 10/23/23 10/24/23 History subcutaneous solution ipratropium 0.5 mg-albuterol 3 mg 3 ml inhalation QID PRN wheezing 10/23/23 10/24/23 History (2.5 mg base)/3 mL nebulization soln Allergies Allergies Allergy/AdvReac Type Severity Reaction Status Date / Time ibuprofen [IBUPROFEN] Allergy Severe LIGHTHEADED;FEELS Verified 10/23/23 17:19 LIKE CHEST IS CLOSING IN;CLAUSTROPHOBIC Mental Status Exam Mental Status Exam Narrative: Pt is alert and oriented; behavior is cooperative, but both irritable and sad; patient is not in distress; dressed in hospital attire with unkempt hair but adequate hygiene; mood is described as depressed and affect congruent, tearful; eye contact appropriate; Speech is normal rate, volume and prosody and not pressured; some mild psychomotor retardation present; thought process is organized and goal directed; Thought content is on recent incident, feeling ignored at home; tx; otherwise pertinent to relevant topics and without any delusional content, paranoid ideations or grandiosity; denies any SI/HI. There is no evidence of perceptual disturbance. Patients insight and judgment impaired but improving Assessment & Plan Assessment & Plan (1) MDD (major depressive disorder), recurrent episode, moderate: Status: Acute Code(s): F33.1 - Major depressive disorder, recurrent, moderate (2) PTSD (post-traumatic stress disorder): Status: Acute Code(s): F43.10 - Post-traumatic stress disorder, unspecified (3) Alcohol use disorder: Status: Acute Code(s): F10.90 - Alcohol use, unspecified, uncomplicated (4) UTI (urinary tract infection): Status: Acute Code(s): N39.0 - Urinary tract infection, site not specified Plan Patient is a 48-year-old female with history of insulin-dependent diabetes on insulin pump, depression, PTSD, alcohol dependence and opioid use disorder in sustained remission, who presents for momentary SI in the face of psychosocial stressors and relapse with alcohol. Patient reports it for about 11 months she has been totally sober from everything, in a good mood despite not being on any medication. Psychosocial stressors have been mounting however the past few months including her partner ill with liver cirrhosis; they live at home with his adult children who according to patient never help out around the house. Patient has been getting overwhelmed with all the chores and hurt feelings with the lack of help and support from her step kids. Patient relapsed with alcohol about 3 weeks ago and started drinking heavily daily, about a L of vodka day. With the alcohol relapse she began to get depressed and the other day made a suicidal comment, saying she wishes she were ; she meant to call AA but accidentally called 911 and as police came she went to the hospital. Patient does not think she needs medication for depression, but maybe some medication for anxiety. She thinks that her depression is situational only and will resolve once she gets back to being sober and gains perspective. Formulation/plan: Patient feels that depression is situational and will resolve on its own; does not want medication and has limited trials on psychotropic medications. Will treat alcohol withdrawal with CIWA Patient on insulin pump at home; products not available to continue with pump so will switch to sliding scale insulin -patient hypoglycemic this morning 600+ blood sugar; hospitalist consult called Plan: CV; later signed a 3 day Q 15 minute checks Start clonidine p.r.n. for anxiety DC insulin pump; start sliding scale; add Lantus Otherwise continue home medication Patient educated on: diagnosis, medication risk/benefits, substance abuse and therapeutic strategies Informed Consent: understands Reason for continued inpatient stay Substantial Risk for: rapid decompensation Statement Statement: I have reviewed the history and physical and performed a pertinent examination on my patient. No changes have occurred unless specified. If the History and Physical was not performed prior to admission, the Hospitalist's service will be consulted for completing the admission physical. Time Spent With Patient Time: Total time managing care of this patient today ____ minutes.
[2023-10-25] MEDS: Acetaminophen 325 MG TABLET 650 MG PO (19:05)
[2023-10-25 20:00] VITALS: BP 160/83; PULSE 84; RESP 18; TEMP 36.4; O2SAT 96
[2023-10-25] MEDS: SUMAtriptan succinate 50 MG TABLET PO (21:26)
[2023-10-25 21:55] LABS: Glucose, Whole Blood 257 mg/dL (60-115)
[2023-10-26 02:10] LABS: Glucose, Whole Blood 266 mg/dL (60-115)
[2023-10-26] MEDS: cefuroxime axetiL 500 MG TABLET PO ×2 (07:47→20:45)
[2023-10-26] MEDS: Folic Acid 1 MG TABLET PO (07:47)
[2023-10-26] MEDS: Thiamine HCL 100 MG TABLET PO (07:47)
[2023-10-26] MEDS: Multivitamin TABLET 1 TAB PO (07:47)
[2023-10-26] MEDS: Albuterol Sulfate 90 MCG 8 GM INHALER 2 PUFF INHALE ×2 (07:50→19:03)
[2023-10-26 07:51] LABS: Glucose, Whole Blood 394 mg/dL (60-115)
[2023-10-26] MEDS: Fluticasone Propionate 100 MCG BLST.W.DEV 2 PUFF INHALE ×2 (07:51→20:48)
[2023-10-26 08:00] VITALS: BP 148/85; PULSE 76; RESP 16; TEMP 36.5; O2SAT 96
[2023-10-26] MEDS: Insulin Lispro 100 UNIT/ML 3 ML VIAL SUBCUT ×8 (08:10→20:44)
--- NOTE | 2023-10-26 10:28 | PM.EVENT ---
Event Note Date of Service: 10/26/23 Event Note: Increase am lantus to 15 units, add 10 units lantus bedtime. Increase standing lispo to 5 units QIDACHS ALONG WITH admelog on ssi. Standing admelog was not administed with SSI last night Time Spent With Patient Time: Total time managing care of this patient today ____ minutes.
[2023-10-26] MEDS: Insulin Glargine,Hum.rec.anlog 100 UNIT/ML 10 ML VIAL SUBCUT (10:45)
[2023-10-26] MEDS: SUMAtriptan succinate 50 MG TABLET PO ×2 (11:05→19:04)
[2023-10-26 11:19] LABS: Glucose, Whole Blood 324 mg/dL (60-115)
[2023-10-26] MEDS: Insulin Glargine,Hum.rec.anlog 100 UNIT/ML 10 ML VIAL 12 UNIT SUBCUT (13:28)
--- NOTE | 2023-10-26 14:10 | HO.PSYCHPN ---
Subjective Subjective Date of Service: 10/26/23 Reason For Visit: depression Subjective Notes: Conditional Voluntary and 3 Day Interim History: Pt reports fair sleep. She reports tossing and turning. She denies SI/HI. She reports difficulties at home with step children, caring for her BF. She continues to express motivation to continue her recovery. we discussed antidepressants but she states mood is situational. we discussed MAT for alcohol use. She states she used to be on vivitrol but worried if she is back on it again other family members will director [employer] her as they are not aware of her relapse. Diagnostics Vital Signs (24Hr): Vital Signs - 24 hr 10/25/23 20:00 10/26/23 08:00 Temperature 97.6 F 97.7 F Pulse Rate 84 76 Respiratory Rate 18 16 Blood Pressure 160/83 H 148/85 H Pulse Oximetry 96 96 Oxygen Delivery Method Room Air Room Air BMI result Body Mass Index 28.0 Labs 10/23/23 17:24 10/25/23 07:53 Labs: Laboratory Results - last 48 hr 10/24/23 10/24/23 10/24/23 16:54 19:30 20:34 VBG pH VBG pCO2 VBG pO2 VBG HCO3 VBG O2 Saturation VBG Base Excess Sodium Potassium Chloride Carbon Dioxide Anion Gap BUN Creatinine Estim Creat Clear Calc Estimated GFR POC Glucose 239 H 91 241 H Random Glucose Estimat Average Glucose Hemoglobin A1c % Calcium Triglycerides Cholesterol LDL Cholesterol, Calc HDL Cholesterol Beta-Hydroxybutyrate Urine Color Urine Appearance Urine pH Ur Specific [place] Urine Protein Urine Glucose (UA) Urine Ketones Urine Blood Urine Nitrite Ur Leukocyte Esterase Urine RBC Urine WBC Ur Squamous Epith Cells Urine Bacteria Hyaline Casts 10/25/23 10/25/23 10/25/23 06:46 07:53 09:10 VBG pH VBG pCO2 VBG pO2 VBG HCO3 VBG O2 Saturation VBG Base Excess Sodium 130 L Potassium 4.5 Chloride 97 Carbon Dioxide 22 Anion Gap 16 BUN 27 H Creatinine 0.98 Estim Creat Clear Calc 56.6 Estimated GFR > 60 POC Glucose > 600 H* Random Glucose 615 H* Estimat Average Glucose 197 Hemoglobin A1c % 8.5 H Calcium 9.2 Triglycerides 191 H Cholesterol 207 H LDL Cholesterol, Calc 99 HDL Cholesterol 70 Beta-Hydroxybutyrate 1.38 H Urine Color Yellow Urine Appearance Cloudy Urine pH 5.5 Ur Specific [place] 1.025 Urine Protein 30 (1+) H Urine Glucose (UA) >=1000 H Urine Ketones Trace Urine Blood Trace H Urine Nitrite Positive H Ur Leukocyte Esterase Moderate (2+) H Urine RBC 0-2 Urine WBC >50 H Ur Squamous Epith Cells 0-2 Urine Bacteria 4+ Hyaline Casts 0-2 10/25/23 10/25/23 10/25/23 09:25 10:20 12:29 VBG pH 7.33 VBG pCO2 51 VBG pO2 32 VBG HCO3 27 H VBG O2 Saturation 43.0 VBG Base Excess 0.9 Sodium Potassium Chloride Carbon Dioxide Anion Gap BUN Creatinine Estim Creat Clear Calc Estimated GFR POC Glucose 347 H 120 H Random Glucose Estimat Average Glucose Hemoglobin A1c % Calcium Triglycerides Cholesterol LDL Cholesterol, Calc HDL Cholesterol Beta-Hydroxybutyrate Urine Color Urine Appearance Urine pH Ur Specific [place] Urine Protein Urine Glucose (UA) Urine Ketones Urine Blood Urine Nitrite Ur Leukocyte Esterase Urine RBC Urine WBC Ur Squamous Epith Cells Urine Bacteria Hyaline Casts 10/25/23 10/25/23 10/25/23 15:46 17:31 19:59 VBG pH VBG pCO2 VBG pO2 VBG HCO3 VBG O2 Saturation VBG Base Excess Sodium Potassium Chloride Carbon Dioxide Anion Gap BUN Creatinine Estim Creat Clear Calc Estimated GFR POC Glucose 416 H* 368 H* 257 H Random Glucose Estimat Average Glucose Hemoglobin A1c % Calcium Triglycerides Cholesterol LDL Cholesterol, Calc HDL Cholesterol Beta-Hydroxybutyrate Urine Color Urine Appearance Urine pH Ur Specific [place] Urine Protein Urine Glucose (UA) Urine Ketones Urine Blood Urine Nitrite Ur Leukocyte Esterase Urine RBC Urine WBC Ur Squamous Epith Cells Urine Bacteria Hyaline Casts 10/26/23 10/26/23 10/26/23 02:06 07:46 11:15 VBG pH VBG pCO2 VBG pO2 VBG HCO3 VBG O2 Saturation VBG Base Excess Sodium Potassium Chloride Carbon Dioxide Anion Gap BUN Creatinine Estim Creat Clear Calc Estimated GFR POC Glucose 266 H 394 H* 324 H Random Glucose Estimat Average Glucose Hemoglobin A1c % Calcium Triglycerides Cholesterol LDL Cholesterol, Calc HDL Cholesterol Beta-Hydroxybutyrate Urine Color Urine Appearance Urine pH Ur Specific [place] Urine Protein Urine Glucose (UA) Urine Ketones Urine Blood Urine Nitrite Ur Leukocyte Esterase Urine RBC Urine WBC Ur Squamous Epith Cells Urine Bacteria Hyaline Casts Medications Medications Current Medications Acetaminophen (Acetaminophen 325 Mg Tablet) 650 mg PO Q6H PRN PRN Reason: Headache/Pain Mild Scale (1-3) Last Admin: 10/25/23 19:05 Dose: 650 mg Al Hydroxide/Mg Hydroxide (Magnesium Hydrox/Alum Hydrox 30 Ml Oral.Susp) 30 ml PO Q6H PRN PRN Reason: Heartburn/Nausea Albuterol Sulfate (Albuterol Sulfate 90 Mcg 8 Gm Inhaler) 2 puff INHALE Q6H PRN PRN Reason: wheezing Last Admin: 10/26/23 07:50 Dose: 2 puff Albuterol/Ipratropium (Albuterol/Iprat 2.5/0.5mg 3 Ml Ampul.Neb) 3 ml INHALE QID PRN PRN Reason: wheezing Cefuroxime Axetil (Cefuroxime Axetil 500 Mg Tablet) 500 mg PO BID [facility] Stop: 10/31/23 23:50 Last Admin: 10/26/23 07:47 Dose: 500 mg Clonidine HCl (Clonidine Hcl 0.1 Mg Tablet) 0.1 mg PO Q4H PRN; Protocol PRN Reason: anxiety Docusate Sodium (Docusate Sodium 100 Mg Capsule) 100 mg PO BID PRN PRN Reason: constipation Fluticasone Propionate (Fluticasone Propionate 100 Mcg Blst.W.Dev) 2 puff INHALE BID [facility] Last Admin: 10/26/23 07:51 Dose: 2 puff Folic Acid (Folic Acid 1 Mg Tablet) 1 mg PO DAILY [facility] Last Admin: 10/26/23 07:47 Dose: 1 mg Glucagon (Glucagon Hcl 1 Mg Vial) 1 mg SUBCUT DAILY PRN PRN Reason: HYPOGLYCEMIC EMERGENCY Hydroxyzine HCl (Hydroxyzine Hcl 25 Mg Tablet) 25 mg PO Q6H PRN PRN Reason: Anxiety Insulin Glargine (Insulin Glargine,Hum.Rec.Anlog 100 Unit/Ml 10 Ml Vial) 15 unit SUBCUT BEDTIME [facility] Insulin Glargine (Insulin Glargine,Hum.Rec.Anlog 100 Unit/Ml 10 Ml Vial) 15 unit SUBCUT DAILY [facility] Insulin Human Lispro (Insulin Lispro 100 Unit/Ml 3 Ml Vial) 0 unit SUBCUT QIDACHS [facility]; Protocol Last Admin: 10/26/23 11:26 Dose: 8 unit Insulin Human Lispro (Insulin Lispro 100 Unit/Ml 3 Ml Vial) 5 unit SUBCUT QIDACHS [facility] Last Admin: 10/26/23 12:18 Dose: 5 unit Lorazepam (Lorazepam 1 Mg Tablet) 1 mg PO Q2H PRN PRN Reason: CIWA 6-10 Last Admin: 10/25/23 09:30 Dose: 1 mg Lorazepam (Lorazepam 1 Mg Tablet) 2 mg PO Q2H PRN PRN Reason: CIWA 11 and above Last Admin: 10/24/23 19:59 Dose: 2 mg Magnesium Hydroxide (Milk Of Magnesia 30 Ml Oral.Susp) 30 ml PO DAILY PRN PRN Reason: Constipation Multivitamins/Vitamin C (Multivitamin Tablet) 1 tab PO DAILY [facility] Last Admin: 10/26/23 07:47 Dose: 1 tab Nicotine (Nicotine 21 Mg Patch.Td24) 21 mg TRANSDERMA DAILY PRN PRN Reason: smoking cessation Nicotine Polacrilex (Nicotine Polacrilex 2 Mg Gum) 4 mg BUCCAL Q2H PRN PRN Reason: Nicotine Cravings Olanzapine (Olanzapine 5 Mg Tablet) 5 mg PO TID PRN PRN Reason: agitation Sumatriptan Succinate (Sumatriptan Succinate 50 Mg Tablet) 50 mg PO DAILY MRX1 PRN PRN Reason: migraine Last Admin: 10/26/23 11:05 Dose: 50 mg Thiamine HCl (Thiamine Hcl 100 Mg Tablet) 100 mg PO DAILY [facility] Last Admin: 10/26/23 07:47 Dose: 100 mg Trazodone HCl (Trazodone Hcl 50 Mg Tablet) 50 mg PO BEDTIME MRX1 PRN PRN Reason: Insomnia Allergies Allergies Allergy/AdvReac Type Severity Reaction Status Date / Time ibuprofen [IBUPROFEN] Allergy Severe LIGHTHEADED;FEELS Verified 10/23/23 17:19 LIKE CHEST IS CLOSING IN;CLAUSTROPHOBIC Assessment & Plan Assessment & Plan (1) MDD (major depressive disorder), recurrent episode, moderate: Status: Acute Code(s): F33.1 - Major depressive disorder, recurrent, moderate (2) PTSD (post-traumatic stress disorder): Status: Acute Code(s): F43.10 - Post-traumatic stress disorder, unspecified (3) Alcohol use disorder: Status: Acute Code(s): F10.90 - Alcohol use, unspecified, uncomplicated (4) UTI (urinary tract infection): Status: Acute Code(s): N39.0 - Urinary tract infection, site not specified Plan Patient is a 48-year-old female with history of insulin-dependent diabetes on insulin pump, depression, PTSD, alcohol dependence and opioid use disorder in sustained remission, who presents for momentary SI in the face of psychosocial stressors and relapse with alcohol. Patient reports it for about 11 months she has been totally sober from everything, in a good mood despite not being on any medication. Psychosocial stressors have been mounting however the past few months including her partner ill with liver cirrhosis; they live at home with his adult children who according to patient never help out around the house. Patient has been getting overwhelmed with all the chores and hurt feelings with the lack of help and support from her step kids. Patient relapsed with alcohol about 3 weeks ago and started drinking heavily daily, about a L of vodka day. With the alcohol relapse she began to get depressed and the other day made a suicidal comment, saying she wishes she were ; she meant to call AA but accidentally called 911 and as police came she went to the hospital. Patient does not think she needs medication for depression, but maybe some medication for anxiety. She thinks that her depression is situational only and will resolve once she gets back to being sober and gains perspective. Formulation/plan: Patient feels that depression is situational and will resolve on its own; does not want medication and has limited trials on psychotropic medications. Will treat alcohol withdrawal with CIWA Patient on insulin pump at home; products not available to continue with pump so will switch to sliding scale insulin -patient hypoglycemic this morning 600+ blood sugar; hospitalist consult called Plan: 10/25 continue tx. Reason for continued inpatient stay Substantial Risk for: harm to self Time Spent With Patient Time: Total time managing care of this patient today ____ minutes.
[2023-10-26 14:41] LABS: Glucose, Whole Blood 195 mg/dL (60-115)
[2023-10-26 16:55] LABS: Glucose, Whole Blood 237 mg/dL (60-115)
[2023-10-26 19:50] LABS: Glucose, Whole Blood 350 mg/dL (60-115)
[2023-10-26 20:00] VITALS: BP 169/72; PULSE 69; TEMP 36.2; O2SAT 92
[2023-10-26] MEDS: Insulin Glargine,Hum.rec.anlog 100 UNIT/ML 10 ML VIAL 15 UNIT SUBCUT (20:41)
[2023-10-26] MEDS: traZODone HCL 50 MG TABLET PO (20:45)
[2023-10-27 08:00] VITALS: BP 133/63; PULSE 68; RESP 16; TEMP 36.9; O2SAT 94
[2023-10-27 08:32] LABS: Glucose, Whole Blood 319 mg/dL (60-115)
[2023-10-27] MEDS: cefuroxime axetiL 500 MG TABLET PO ×2 (08:52→20:21)
[2023-10-27] MEDS: Fluticasone Propionate 100 MCG BLST.W.DEV 2 PUFF INHALE ×2 (08:52→20:24)
[2023-10-27] MEDS: Thiamine HCL 100 MG TABLET PO (08:52)
[2023-10-27] MEDS: Insulin Lispro 100 UNIT/ML 3 ML VIAL SUBCUT ×4 (08:52→20:23)
[2023-10-27] MEDS: Multivitamin TABLET 1 TAB PO (08:52)
[2023-10-27] MEDS: Folic Acid 1 MG TABLET PO (08:52)
[2023-10-27] MEDS: Insulin Glargine,Hum.rec.anlog 100 UNIT/ML 10 ML VIAL 15 UNIT SUBCUT ×2 (09:02→20:22)
[2023-10-27 11:43] LABS: Glucose, Whole Blood 243 mg/dL (60-115)
--- NOTE | 2023-10-27 12:08 | PM.EVENT ---
Event Note Date of Service: 10/27/23 Event Note: Follow up on hyperglycemia in uncontrolled insuling dependent diabetic. Pt typically uses insulin pump delivering continuous insulin with bolus insulin at meal times. However, pump has run out of insulin. Lantus is typically dosed once daily in most patients but for persistent uncontrolled glucose readings, updated studies have shown imrovement in glucose control with BID dosing. Will continue lantus 15 units am and increase to 20 units bedtime given persistently elevated fasting glucose levels. Will also increase standing admelog to 8 units QIDACHS and continue SSI as ordered. Pt has been making good meal and snacking choices per nursing staff despite regular diet. Will continue following glucose levels. If possible, have patient friends/family bring in insulin pods for pump. Otherwise continue plan as above. Will continue following. Time Spent With Patient Time: Total time managing care of this patient today ____ minutes.
[2023-10-27] MEDS: Insulin Lispro 100 UNIT/ML 3 ML VIAL 8 UNIT SUBCUT ×3 (12:25→20:24)
[2023-10-27] MEDS: SUMAtriptan succinate 50 MG TABLET PO ×2 (13:36→17:26)
[2023-10-27] MEDS: Albuterol Sulfate 90 MCG 8 GM INHALER 2 PUFF INHALE ×2 (13:36→20:24)
[2023-10-27 17:07] LABS: Glucose, Whole Blood 148 mg/dL (60-115)
[2023-10-27 20:00] VITALS: BP 144/73; PULSE 71; TEMP 36.4; O2SAT 96
[2023-10-27 20:01] LABS: Glucose, Whole Blood 161 mg/dL (60-115)
[2023-10-27] MEDS: traZODone HCL 50 MG TABLET PO (20:21)
--- NOTE | 2023-10-27 20:53 | HO.PSYCHPN ---
Subjective Subjective Date of Service: 10/27/23 Reason For Visit: depression Interim History: Pt reports feeling better. Sleep improved with Trazodone. She denies SI/HI. She is committed to recovery from ETOH. Depression improved. Review of Systems Review of Systems Yes all other systems are reviewed and are negative Mental Status Exam Mental Status Exam Narrative: Pt is alert and oriented; behavior is cooperative, but both irritable and sad; patient is not in distress; dressed in hospital attire with unkempt hair but adequate hygiene; mood is described as better and affect congruent, tearful; eye contact appropriate; Speech is normal rate, volume and prosody and not pressured; some mild psychomotor retardation present; thought process is organized and goal directed; Thought content is on recent incident, feeling ignored at home; tx; otherwise pertinent to relevant topics and without any delusional content, paranoid ideations or grandiosity; denies any SI/HI. There is no evidence of perceptual disturbance. Patients insight and judgment impaired but improving Diagnostics Vital Signs (24Hr): Vital Signs - 24 hr 10/27/23 08:00 Temperature 98.5 F Pulse Rate 68 Respiratory Rate 16 Blood Pressure 133/63 Pulse Oximetry 94 Oxygen Delivery Method Room Air BMI result Body Mass Index 28.0 Labs 10/23/23 17:24 10/25/23 07:53 Labs: Laboratory Results - last 48 hr 10/25/23 10/26/23 10/26/23 19:59 02:06 07:46 POC Glucose 257 H 266 H 394 H* 10/26/23 10/26/23 10/26/23 11:15 14:38 16:51 POC Glucose 324 H 195 H 237 H 10/26/23 10/27/23 10/27/23 19:45 08:22 11:38 POC Glucose 350 H* 319 H 243 H 10/27/23 10/27/23 16:59 19:50 POC Glucose 148 H 161 H Medications Medications Current Medications Acetaminophen (Acetaminophen 325 Mg Tablet) 650 mg PO Q6H PRN PRN Reason: Headache/Pain Mild Scale (1-3) Last Admin: 10/25/23 19:05 Dose: 650 mg Al Hydroxide/Mg Hydroxide (Magnesium Hydrox/Alum Hydrox 30 Ml Oral.Susp) 30 ml PO Q6H PRN PRN Reason: Heartburn/Nausea Albuterol Sulfate (Albuterol Sulfate 90 Mcg 8 Gm Inhaler) 2 puff INHALE Q6H PRN PRN Reason: wheezing Last Admin: 10/27/23 20:24 Dose: 2 puff Albuterol/Ipratropium (Albuterol/Iprat 2.5/0.5mg 3 Ml Ampul.Neb) 3 ml INHALE QID PRN PRN Reason: wheezing Cefuroxime Axetil (Cefuroxime Axetil 500 Mg Tablet) 500 mg PO BID [facility] Stop: 10/31/23 23:50 Last Admin: 10/27/23 20:21 Dose: 500 mg Clonidine HCl (Clonidine Hcl 0.1 Mg Tablet) 0.1 mg PO Q4H PRN; Protocol PRN Reason: anxiety Docusate Sodium (Docusate Sodium 100 Mg Capsule) 100 mg PO BID PRN PRN Reason: constipation Fluticasone Propionate (Fluticasone Propionate 100 Mcg Blst.W.Dev) 2 puff INHALE BID [facility] Last Admin: 10/27/23 20:24 Dose: 2 puff Folic Acid (Folic Acid 1 Mg Tablet) 1 mg PO DAILY [facility] Last Admin: 10/27/23 08:52 Dose: 1 mg Glucagon (Glucagon Hcl 1 Mg Vial) 1 mg SUBCUT DAILY PRN PRN Reason: HYPOGLYCEMIC EMERGENCY Hydroxyzine HCl (Hydroxyzine Hcl 25 Mg Tablet) 25 mg PO Q6H PRN PRN Reason: Anxiety Insulin Glargine (Insulin Glargine,Hum.Rec.Anlog 100 Unit/Ml 10 Ml Vial) 15 unit SUBCUT BEDTIME [facility] Last Admin: 10/27/23 20:22 Dose: 15 unit Insulin Glargine (Insulin Glargine,Hum.Rec.Anlog 100 Unit/Ml 10 Ml Vial) 15 unit SUBCUT DAILY [facility] Last Admin: 10/27/23 09:02 Dose: 15 unit Insulin Human Lispro (Insulin Lispro 100 Unit/Ml 3 Ml Vial) 0 unit SUBCUT QIDACHS [facility]; Protocol Last Admin: 10/27/23 20:23 Dose: 2 unit Insulin Human Lispro (Insulin Lispro 100 Unit/Ml 3 Ml Vial) 8 unit SUBCUT QIDACHS [facility] Last Admin: 10/27/23 17:27 Dose: 8 unit Lorazepam (Lorazepam 1 Mg Tablet) 1 mg PO Q2H PRN PRN Reason: CIWA 6-10 Last Admin: 10/25/23 09:30 Dose: 1 mg Lorazepam (Lorazepam 1 Mg Tablet) 2 mg PO Q2H PRN PRN Reason: CIWA 11 and above Last Admin: 10/24/23 19:59 Dose: 2 mg Magnesium Hydroxide (Milk Of Magnesia 30 Ml Oral.Susp) 30 ml PO DAILY PRN PRN Reason: Constipation Multivitamins/Vitamin C (Multivitamin Tablet) 1 tab PO DAILY [facility] Last Admin: 10/27/23 08:52 Dose: 1 tab Nicotine (Nicotine 21 Mg Patch.Td24) 21 mg TRANSDERMA DAILY PRN PRN Reason: smoking cessation Nicotine Polacrilex (Nicotine Polacrilex 2 Mg Gum) 4 mg BUCCAL Q2H PRN PRN Reason: Nicotine Cravings Olanzapine (Olanzapine 5 Mg Tablet) 5 mg PO TID PRN PRN Reason: agitation Sumatriptan Succinate (Sumatriptan Succinate 50 Mg Tablet) 50 mg PO DAILY MRX1 PRN PRN Reason: migraine Last Admin: 10/27/23 17:26 Dose: 50 mg Thiamine HCl (Thiamine Hcl 100 Mg Tablet) 100 mg PO DAILY [facility] Last Admin: 10/27/23 08:52 Dose: 100 mg Trazodone HCl (Trazodone Hcl 50 Mg Tablet) 50 mg PO BEDTIME MRX1 PRN PRN Reason: Insomnia Last Admin: 10/27/23 20:21 Dose: 50 mg Allergies Allergies Allergy/AdvReac Type Severity Reaction Status Date / Time ibuprofen [IBUPROFEN] Allergy Severe LIGHTHEADED;FEELS Verified 10/23/23 17:19 LIKE CHEST IS CLOSING IN;CLAUSTROPHOBIC Assessment & Plan Assessment & Plan (1) MDD (major depressive disorder), recurrent episode, moderate: Status: Acute Code(s): F33.1 - Major depressive disorder, recurrent, moderate (2) PTSD (post-traumatic stress disorder): Status: Acute Code(s): F43.10 - Post-traumatic stress disorder, unspecified (3) Alcohol use disorder: Status: Acute Code(s): F10.90 - Alcohol use, unspecified, uncomplicated (4) UTI (urinary tract infection): Status: Acute Code(s): N39.0 - Urinary tract infection, site not specified Plan Patient is a 48-year-old female with history of insulin-dependent diabetes on insulin pump, depression, PTSD, alcohol dependence and opioid use disorder in sustained remission, who presents for momentary SI in the face of psychosocial stressors and relapse with alcohol. Patient reports it for about 11 months she has been totally sober from everything, in a good mood despite not being on any medication. Psychosocial stressors have been mounting however the past few months including her partner ill with liver cirrhosis; they live at home with his adult children who according to patient never help out around the house. Patient has been getting overwhelmed with all the chores and hurt feelings with the lack of help and support from her step kids. Patient relapsed with alcohol about 3 weeks ago and started drinking heavily daily, about a L of vodka day. With the alcohol relapse she began to get depressed and the other day made a suicidal comment, saying she wishes she were ; she meant to call AA but accidentally called 911 and as police came she went to the hospital. Patient does not think she needs medication for depression, but maybe some medication for anxiety. She thinks that her depression is situational only and will resolve once she gets back to being sober and gains perspective. Formulation/plan: Patient feels that depression is situational and will resolve on its own; does not want medication and has limited trials on psychotropic medications. Will treat alcohol withdrawal with CIWA Patient on insulin pump at home; products not available to continue with pump so will switch to sliding scale insulin -patient hypoglycemic this morning 600+ blood sugar; hospitalist consult called Plan: 10/25 continue tx. 10/26: continue current management and treatment plan. Reason for continued inpatient stay Substantial Risk for: harm to self and rapid decompensation Time Spent With Patient Time: Total time managing care of this patient today ____ minutes.
[2023-10-27] MEDS: Acetaminophen 325 MG TABLET 650 MG PO (21:59)
[2023-10-28 07:53] LABS: Glucose, Whole Blood 208 mg/dL (60-115)
[2023-10-28 08:00] VITALS: BP 117/67; PULSE 67; RESP 16; TEMP 36.9; O2SAT 94
[2023-10-28] MEDS: Fluticasone Propionate 100 MCG BLST.W.DEV 2 PUFF INHALE ×2 (08:13→20:31)
[2023-10-28] MEDS: Albuterol Sulfate 90 MCG 8 GM INHALER 2 PUFF INHALE ×3 (08:14→20:31)
[2023-10-28] MEDS: Thiamine HCL 100 MG TABLET PO (08:14)
[2023-10-28] MEDS: Multivitamin TABLET 1 TAB PO (08:15)
[2023-10-28] MEDS: cefuroxime axetiL 500 MG TABLET PO ×2 (08:15→20:28)
[2023-10-28] MEDS: Insulin Lispro 100 UNIT/ML 3 ML VIAL 8 UNIT SUBCUT ×4 (08:15→20:30)
[2023-10-28] MEDS: Folic Acid 1 MG TABLET PO (08:15)
[2023-10-28] MEDS: Insulin Glargine,Hum.rec.anlog 100 UNIT/ML 10 ML VIAL 15 UNIT SUBCUT ×2 (08:16→20:29)
[2023-10-28] MEDS: Insulin Lispro 100 UNIT/ML 3 ML VIAL SUBCUT ×4 (08:16→20:29)
--- NOTE | 2023-10-28 09:18 | P.PNPSI_ITS ---
Subjective Subjective Date of Service: 10/28/23 Reason For Visit: depression Interim History: Pt reports feeling better. Sleep improved with Trazodone. She denies SI/HI. She is committed to recovery from ETOH. Depression improved. Review of Systems Review of Systems Yes all other systems are reviewed and are negative Mental Status Exam Mental Status Exam Narrative: Pt is alert and oriented; behavior is cooperative, but both irritable and sad; patient is not in distress; dressed in hospital attire with unkempt hair but adequate hygiene; mood is described as better and affect congruent, tearful; eye contact appropriate; Speech is normal rate, volume and prosody and not pressured; some mild psychomotor retardation present; thought process is organized and goal directed; Thought content is on recent incident, feeling ignored at home; tx; otherwise pertinent to relevant topics and without any delusional content, paranoid ideations or grandiosity; denies any SI/HI. There is no evidence of perceptual disturbance. Patients insight and judgment impaired but improving Diagnostics Vital Signs (24Hr): Vital Signs - 24 hr 10/27/23 20:00 10/28/23 08:00 Temperature 97.6 F 98.5 F Pulse Rate 71 67 Respiratory Rate 16 Blood Pressure 144/73 H 117/67 Pulse Oximetry 96 94 Oxygen Delivery Method Room Air Room Air BMI result Body Mass Index 28.0 Labs 10/23/23 17:24 10/25/23 07:53 Labs: Laboratory Results - last 48 hr 10/26/23 10/26/23 10/26/23 11:15 14:38 16:51 POC Glucose 324 H 195 H 237 H 10/26/23 10/27/23 10/27/23 19:45 08:22 11:38 POC Glucose 350 H* 319 H 243 H 10/27/23 10/27/23 10/28/23 16:59 19:50 07:43 POC Glucose 148 H 161 H 208 H Medications Medications Current Medications Acetaminophen (Acetaminophen 325 Mg Tablet) 650 mg PO Q6H PRN PRN Reason: Headache/Pain Mild Scale (1-3) Last Admin: 10/27/23 21:59 Dose: 650 mg Al Hydroxide/Mg Hydroxide (Magnesium Hydrox/Alum Hydrox 30 Ml Oral.Susp) 30 ml PO Q6H PRN PRN Reason: Heartburn/Nausea Albuterol Sulfate (Albuterol Sulfate 90 Mcg 8 Gm Inhaler) 2 puff INHALE Q6H PRN PRN Reason: wheezing Last Admin: 10/28/23 08:14 Dose: 2 puff Albuterol/Ipratropium (Albuterol/Iprat 2.5/0.5mg 3 Ml Ampul.Neb) 3 ml INHALE QID PRN PRN Reason: wheezing Cefuroxime Axetil (Cefuroxime Axetil 500 Mg Tablet) 500 mg PO BID [facility] Stop: 10/31/23 23:50 Last Admin: 10/28/23 08:15 Dose: 500 mg Clonidine HCl (Clonidine Hcl 0.1 Mg Tablet) 0.1 mg PO Q4H PRN; Protocol PRN Reason: anxiety Docusate Sodium (Docusate Sodium 100 Mg Capsule) 100 mg PO BID PRN PRN Reason: constipation Fluticasone Propionate (Fluticasone Propionate 100 Mcg Blst.W.Dev) 2 puff INHALE BID [facility] Last Admin: 10/28/23 08:13 Dose: 2 puff Folic Acid (Folic Acid 1 Mg Tablet) 1 mg PO DAILY [facility] Last Admin: 10/28/23 08:15 Dose: 1 mg Glucagon (Glucagon Hcl 1 Mg Vial) 1 mg SUBCUT DAILY PRN PRN Reason: HYPOGLYCEMIC EMERGENCY Hydroxyzine HCl (Hydroxyzine Hcl 25 Mg Tablet) 25 mg PO Q6H PRN PRN Reason: Anxiety Insulin Glargine (Insulin Glargine,Hum.Rec.Anlog 100 Unit/Ml 10 Ml Vial) 15 unit SUBCUT BEDTIME [facility] Last Admin: 10/27/23 20:22 Dose: 15 unit Insulin Glargine (Insulin Glargine,Hum.Rec.Anlog 100 Unit/Ml 10 Ml Vial) 15 unit SUBCUT DAILY [facility] Last Admin: 10/28/23 08:16 Dose: 15 unit Insulin Human Lispro (Insulin Lispro 100 Unit/Ml 3 Ml Vial) 0 unit SUBCUT QIDACHS [facility]; Protocol Last Admin: 10/28/23 08:16 Dose: 4 unit Insulin Human Lispro (Insulin Lispro 100 Unit/Ml 3 Ml Vial) 8 unit SUBCUT QIDACHS [facility] Last Admin: 10/28/23 08:15 Dose: 8 unit Lorazepam (Lorazepam 1 Mg Tablet) 1 mg PO Q2H PRN PRN Reason: CIWA 6-10 Last Admin: 10/25/23 09:30 Dose: 1 mg Lorazepam (Lorazepam 1 Mg Tablet) 2 mg PO Q2H PRN PRN Reason: CIWA 11 and above Last Admin: 10/24/23 19:59 Dose: 2 mg Magnesium Hydroxide (Milk Of Magnesia 30 Ml Oral.Susp) 30 ml PO DAILY PRN PRN Reason: Constipation Multivitamins/Vitamin C (Multivitamin Tablet) 1 tab PO DAILY [facility] Last Admin: 10/28/23 08:15 Dose: 1 tab Nicotine (Nicotine 21 Mg Patch.Td24) 21 mg TRANSDERMA DAILY PRN PRN Reason: smoking cessation Nicotine Polacrilex (Nicotine Polacrilex 2 Mg Gum) 4 mg BUCCAL Q2H PRN PRN Reason: Nicotine Cravings Olanzapine (Olanzapine 5 Mg Tablet) 5 mg PO TID PRN PRN Reason: agitation Sumatriptan Succinate (Sumatriptan Succinate 50 Mg Tablet) 50 mg PO DAILY MRX1 PRN PRN Reason: migraine Last Admin: 10/27/23 17:26 Dose: 50 mg Thiamine HCl (Thiamine Hcl 100 Mg Tablet) 100 mg PO DAILY [facility] Last Admin: 10/28/23 08:14 Dose: 100 mg Trazodone HCl (Trazodone Hcl 50 Mg Tablet) 50 mg PO BEDTIME MRX1 PRN PRN Reason: Insomnia Last Admin: 10/27/23 20:21 Dose: 50 mg Allergies Allergies Allergy/AdvReac Type Severity Reaction Status Date / Time ibuprofen [IBUPROFEN] Allergy Severe LIGHTHEADED;FEELS Verified 10/23/23 17:19 LIKE CHEST IS CLOSING IN;CLAUSTROPHOBIC Assessment & Plan Assessment & Plan (1) MDD (major depressive disorder), recurrent episode, moderate: Status: Acute Code(s): F33.1 - Major depressive disorder, recurrent, moderate (2) PTSD (post-traumatic stress disorder): Status: Acute Code(s): F43.10 - Post-traumatic stress disorder, unspecified (3) Alcohol use disorder: Status: Acute Code(s): F10.90 - Alcohol use, unspecified, uncomplicated (4) UTI (urinary tract infection): Status: Acute Code(s): N39.0 - Urinary tract infection, site not specified Plan Patient is a 48-year-old female with history of insulin-dependent diabetes on insulin pump, depression, PTSD, alcohol dependence and opioid use disorder in sustained remission, who presents for momentary SI in the face of psychosocial stressors and relapse with alcohol. Patient reports it for about 11 months she has been totally sober from everything, in a good mood despite not being on any medication. Psychosocial stressors have been mounting however the past few months including her partner ill with liver cirrhosis; they live at home with his adult children who according to patient never help out around the house. Patient has been getting overwhelmed with all the chores and hurt feelings with the lack of help and support from her step kids. Patient relapsed with alcohol about 3 weeks ago and started drinking heavily daily, about a L of vodka day. With the alcohol relapse she began to get depressed and the other day made a suicidal comment, saying she wishes she were ; she meant to call AA but accidentally called 911 and as police came she went to the hospital. Patient does not think she needs medication for depression, but maybe some medication for anxiety. She thinks that her depression is situational only and will resolve once she gets back to being sober and gains perspective. Formulation/plan: Patient feels that depression is situational and will resolve on its own; does not want medication and has limited trials on psychotropic medications. Will treat alcohol withdrawal with CIWA Patient on insulin pump at home; products not available to continue with pump so will switch to sliding scale insulin -patient hypoglycemic this morning 600+ blood sugar; hospitalist consult called Plan: 10/25 continue tx. 10/26: continue current management and treatment plan. 10/27: continue current management and treatment plan. Reason for continued inpatient stay Substantial Risk for: harm to self, inability to function and rapid decompensation Time Spent With Patient Time: Total time managing care of this patient today ____ minutes.
--- NOTE | 2023-10-28 10:39 | MHC.RECOVRN ---
AUDIT-C Brief Intervention Pt had positive screen for unhealthy alcohol use on admission, subsequently met with t/w to discuss alcohol use and recovery supports/options. Pt voices concern regarding alcohol use and is aware that drinking at unhealthy levels is known to increase risk of alcohol related health problems. Pt reports drinking 1 pint of vodka on day of admission, prior to that had not had alcohol in one year. Pt also reports history of OUD, last use also one year ago. Pt reports hx Vivitrol for OUD. Discussed Vivitrol benefits with AUD. Pt expresses how alcohol use has impacted health, including negative impact on mental health. Pt reports stress at home precipitated alcohol use and now has strategies to deal with stress upon returning home. Discussed risk reduction strategies including drinking below the recommended limit. Pt states I'm not going to drink for another year. Provided pt with written resources including information on inpatient and outpatient treatment, DOROTHEA, harm reduction, and recovery coaching. Pt plans to attend AA on discharge as she has had success with the program in the past and attend therapy. Pt will call the [facility] if she would like to initiate Vivitrol. Pt provided with t/w contact information if questions or concerns arise. Denies other questions or concerns at this time.
[2023-10-28 11:57] LABS: Glucose, Whole Blood 171 mg/dL (60-115)
[2023-10-28] MEDS: SUMAtriptan succinate 50 MG TABLET PO (14:17)
[2023-10-28 16:35] LABS: Glucose, Whole Blood 251 mg/dL (60-115)
[2023-10-28 20:00] VITALS: BP 152/73; PULSE 67; RESP 97; TEMP 36.4; O2SAT 97
[2023-10-28 20:02] LABS: Glucose, Whole Blood 164 mg/dL (60-115)
[2023-10-28] MEDS: traZODone HCL 50 MG TABLET PO (22:01)
[2023-10-29 08:00] VITALS: BP 117/60; PULSE 69; RESP 16; TEMP 36.4; O2SAT 95
[2023-10-29 08:05] LABS: Glucose, Whole Blood 136 mg/dL (60-115)
[2023-10-29] MEDS: Fluticasone Propionate 100 MCG BLST.W.DEV 2 PUFF INHALE (08:24)
[2023-10-29] MEDS: Albuterol Sulfate 90 MCG 8 GM INHALER 2 PUFF INHALE (08:24)
[2023-10-29] MEDS: Multivitamin TABLET 1 TAB PO (08:25)
[2023-10-29] MEDS: Thiamine HCL 100 MG TABLET PO (08:25)
[2023-10-29] MEDS: cefuroxime axetiL 500 MG TABLET PO (08:25)
[2023-10-29] MEDS: Folic Acid 1 MG TABLET PO (08:25)
--- NOTE | 2023-10-29 09:09 | PM.EVENT ---
Event Note Date of Service: 10/29/23 Event Note: Glucose levels much more controlled on current adjusted regimen. Continue lantus 15mg BID, standing admelog 8 units QIDACHS and use admelog ssi QIDACHS per protocol. Pt should be discharged on home insulin pump and compliance with diabetic diet Signing off at this time. Please do not hesitate to reach out with questions or concerns. Time Spent With Patient Time: Total time managing care of this patient today ____ minutes.
[2023-10-29] MEDS: Insulin Lispro 100 UNIT/ML 3 ML VIAL 8 UNIT SUBCUT (09:18)
[2023-10-29] MEDS: Insulin Glargine,Hum.rec.anlog 100 UNIT/ML 10 ML VIAL 15 UNIT SUBCUT (09:19)
--- NOTE | 2023-10-29 09:31 | PM.PSYDC ---
DS: Providers Provider Date of Service: 10/29/23 Date of admission: 10/24/23 12:41 Primary care physician: Nilton Parikh MD Consults: 10/24/23 17:54 Addiction Medicine Routine Consulting Provider: Addiction Covering Reason for consultation: alcohol use disorder Has provider been notified: No 10/25/23 09:57 Consult to Hospitalist Routine Comment: Consulting Provider: Hospitalist Reason For Exam: dc'd pump; needs coverage (lantus?) DS: Diagnosis Discharge Diagnosis (1) MDD (major depressive disorder), recurrent episode, moderate: Status: Acute (2) PTSD (post-traumatic stress disorder): Status: Acute (3) Alcohol use disorder: Status: Acute (4) UTI (urinary tract infection): Status: Acute DS: Medications Discharge Medications Home Medications: Home Medications ?Medication ?Instructions ?Recorded ?Confirmed subcutaneous insulin pump 10/04/20 10/24/23 albuterol sulfate 90 mcg/actuation 2 puff inhalation Q6H PRN wheezing 10/23/23 10/24/23 aerosol inhaler (Ventolin HFA) beclomethasone dipropionate 80 1 inh inhalation BID 10/23/23 10/24/23 mcg/actuation HFA breath activated aerosol (Qvar RediHaler) blood-glucose sensor (Dexcom G6 10/23/23 10/24/23 Sensor device) blood-glucose transmitter (Dexcom 10/23/23 10/24/23 G6 Transmitter device) docusate sodium 100 mg capsule 100 mg PO BID PRN constipation 10/23/23 10/24/23 glucagon 1 mg solution for 1 mg subcut NEEDED hypoglycemia 10/23/23 10/24/23 injection (Glucagon Emergency Kit) insulin lispro 100 unit/mL 0 - 80 unit subcut DAILY 10/23/23 10/24/23 subcutaneous solution ipratropium 0.5 mg-albuterol 3 mg 3 ml inhalation QID PRN wheezing 10/23/23 10/24/23 (2.5 mg base)/3 mL nebulization soln Mental Status Exam Mental Status Exam Narrative: Pt is alert and oriented; behavior is cooperative, friendly, calm; patient is not in distress; dressed in casual attire and well-groomed; mood is described as good and affect congruent, noticeably brighter, calm; eye contact appropriate; Speech is normal rate, volume and prosody and not pressured; no psychomotor retardation present; thought process is organized and goal directed; Thought content is on discharge, returning home; otherwise pertinent to relevant topics and without any delusional content, paranoid ideations or grandiosity; denies any SI/HI. There is no evidence of perceptual disturbance. Patients insight and judgment fair. Data Data Completed and Pending Completed studies during hospitalization [Text1]: 10/23/23 10/23/23 10/24/23 17:06 17:24 00:59 WBC 10.4 RBC 5.03 Hgb 14.8 Hct 42.5 MCV 84.5 MCH 29.4 MCHC 34.8 RDW 12.7 Plt Count 247 MPV 10.7 Immature Gran % (Auto) 0.3 Neut % (Auto) 57.1 Lymph % (Auto) 36.4 [place] % (Auto) 5.9 Eos % (Auto) 0.3 Baso % (Auto) 0.0 Lymph # (Auto) 3.8 [place] # (Auto) 0.6 Eos # (Auto) 0.0 Baso # (Auto) 0.0 Abs Immat Gran (auto) 0.03 Absolute Neuts (auto) 5.9 Absolute Nucleated RBC 0.000 Nucleated RBC % (auto) 0.0 VBG pH VBG pCO2 VBG pO2 VBG HCO3 VBG O2 Saturation VBG Base Excess Sodium 136 Potassium 3.8 Chloride 103 Carbon Dioxide 26 Anion Gap 11 L BUN 10 Creatinine 0.69 Estim Creat Clear Calc 83.6 Estimated GFR > 60 POC Glucose Random Glucose 97 Estimat Average Glucose Hemoglobin A1c % Calcium 8.8 D Total Bilirubin 0.2 AST 67 H ALT 76 H Alkaline Phosphatase 95 Total Protein 7.7 Albumin 3.9 Triglycerides Cholesterol LDL Cholesterol, Calc HDL Cholesterol Beta-Hydroxybutyrate Urine Color Yellow Urine Appearance Cloudy Urine pH 5.5 Ur Specific [place] 1.010 Urine Protein 100 (2+) H Urine Glucose (UA) Negative Urine Ketones Negative Urine Blood Negative Urine Nitrite Negative Ur Leukocyte Esterase Negative Urine RBC 0-2 Urine WBC 0-5 Ur Squamous Epith Cells 0-2 Urine Bacteria 4+ Hyaline Casts 0-2 Urine Test NEGATIVE Urine Opiates Screen Not Detected Ur Buprenorphine Scrn Not Detected Ur Oxycodone Screen Not Detected Urine Methadone Screen Not Detected Urine Fentanyl Screen Not Detected Ur Barbiturates Screen Not Detected Ur Phencyclidine Scrn Not Detected Ur Amphetamines Screen Not Detected U Benzodiazepines Scrn Not Detected Urine Cocaine Screen Not Detected U Marijuana (THC) Screen Not Detected Ethyl Alcohol 255 COVID-19 (NUBIA) Negative COVID-19 [employer] [facility] See Note 10/24/23 10/24/23 10/24/23 07:23 12:01 16:54 WBC RBC Hgb Hct MCV MCH MCHC RDW Plt Count MPV Immature Gran % (Auto) Neut % (Auto) Lymph % (Auto) [place] % (Auto) Eos % (Auto) Baso % (Auto) Lymph # (Auto) [place] # (Auto) Eos # (Auto) Baso # (Auto) Abs Immat Gran (auto) Absolute Neuts (auto) Absolute Nucleated RBC Nucleated RBC % (auto) VBG pH VBG pCO2 VBG pO2 VBG HCO3 VBG O2 Saturation VBG Base Excess Sodium Potassium Chloride Carbon Dioxide Anion Gap BUN Creatinine Estim Creat Clear Calc Estimated GFR POC Glucose 126 H 164 H 239 H Random Glucose Estimat Average Glucose Hemoglobin A1c % Calcium Total Bilirubin AST ALT Alkaline Phosphatase Total Protein Albumin Triglycerides Cholesterol LDL Cholesterol, Calc HDL Cholesterol Beta-Hydroxybutyrate Urine Color Urine Appearance Urine pH Ur Specific [place] Urine Protein Urine Glucose (UA) Urine Ketones Urine Blood Urine Nitrite Ur Leukocyte Esterase Urine RBC Urine WBC Ur Squamous Epith Cells Urine Bacteria Hyaline Casts Urine Test Urine Opiates Screen Ur Buprenorphine Scrn Ur Oxycodone Screen Urine Methadone Screen Urine Fentanyl Screen Ur Barbiturates Screen Ur Phencyclidine Scrn Ur Amphetamines Screen U Benzodiazepines Scrn Urine Cocaine Screen U Marijuana (THC) Screen Ethyl Alcohol COVID-19 (NUB[place]) COVID-19 [employer] [facility] 10/24/23 10/24/23 10/25/23 19:30 20:34 06:46 WBC RBC Hgb Hct MCV MCH MCHC RDW Plt Count MPV Immature Gran % (Auto) Neut % (Auto) Lymph % (Auto) [place] % (Auto) Eos % (Auto) Baso % (Auto) Lymph # (Auto) [place] # (Auto) Eos # (Auto) Baso # (Auto) Abs Immat Gran (auto) Absolute Neuts (auto) Absolute Nucleated RBC Nucleated RBC % (auto) VBG pH VBG pCO2 VBG pO2 VBG HCO3 VBG O2 Saturation VBG Base Excess Sodium Potassium Chloride Carbon Dioxide Anion Gap BUN Creatinine Estim Creat Clear Calc Estimated GFR POC Glucose 91 241 H > 600 H* Random Glucose Estimat Average Glucose Hemoglobin A1c % Calcium Total Bilirubin AST ALT Alkaline Phosphatase Total Protein Albumin Triglycerides Cholesterol LDL Cholesterol, Calc HDL Cholesterol Beta-Hydroxybutyrate Urine Color Urine Appearance Urine pH Ur Specific [place] Urine Protein Urine Glucose (UA) Urine Ketones Urine Blood Urine Nitrite Ur Leukocyte Esterase Urine RBC Urine WBC Ur Squamous Epith Cells Urine Bacteria Hyaline Casts Urine Test Urine Opiates Screen Ur Buprenorphine Scrn Ur Oxycodone Screen Urine Methadone Screen Urine Fentanyl Screen Ur Barbiturates Screen Ur Phencyclidine Scrn Ur Amphetamines Screen U Benzodiazepines Scrn Urine Cocaine Screen U Marijuana (THC) Screen Ethyl Alcohol COVID-19 (NUB[place]) COVID-19 Clin Com 10/25/23 10/25/23 10/25/23 07:53 09:10 09:25 WBC RBC Hgb Hct MCV MCH MCHC RDW Plt Count MPV Immature Gran % (Auto) Neut % (Auto) Lymph % (Auto) [place] % (Auto) Eos % (Auto) Baso % (Auto) Lymph # (Auto) [place] # (Auto) Eos # (Auto) Baso # (Auto) Abs Immat Gran (auto) Absolute Neuts (auto) Absolute Nucleated RBC Nucleated RBC % (auto) VBG pH 7.33 VBG pCO2 51 VBG pO2 32 VBG HCO3 27 H VBG O2 Saturation 43.0 VBG Base Excess 0.9 Sodium 130 L Potassium 4.5 Chloride 97 Carbon Dioxide 22 Anion Gap 16 BUN 27 H Creatinine 0.98 Estim Creat Clear Calc 56.6 Estimated GFR > 60 POC Glucose Random Glucose 615 H* Estimat Average Glucose 197 Hemoglobin A1c % 8.5 H Calcium 9.2 Total Bilirubin AST ALT Alkaline Phosphatase Total Protein Albumin Triglycerides 191 H Cholesterol 207 H LDL Cholesterol, Calc 99 HDL Cholesterol 70 Beta-Hydroxybutyrate 1.38 H Urine Color Yellow Urine Appearance Cloudy Urine pH 5.5 Ur Specific [place] 1.025 Urine Protein 30 (1+) H Urine Glucose (UA) >=1000 H Urine Ketones Trace Urine Blood Trace H Urine Nitrite Positive H Ur Leukocyte Esterase Moderate (2+) H Urine RBC 0-2 Urine WBC >50 H Ur Squamous Epith Cells 0-2 Urine Bacteria 4+ Hyaline Casts 0-2 Urine Test Urine Opiates Screen Ur Buprenorphine Scrn Ur Oxycodone Screen Urine Methadone Screen Urine Fentanyl Screen Ur Barbiturates Screen Ur Phencyclidine Scrn Ur Amphetamines Screen U Benzodiazepines Scrn Urine Cocaine Screen U Marijuana (THC) Screen Ethyl Alcohol COVID-19 (NUB[place]) COVID-19 [employer] 10/25/23 10/25/23 10/25/23 10:20 12:29 15:46 WBC RBC Hgb Hct MCV MCH MCHC RDW Plt Count MPV Immature Gran % (Auto) Neut % (Auto) Lymph % (Auto) [place] % (Auto) Eos % (Auto) Baso % (Auto) Lymph # (Auto) [place] # (Auto) Eos # (Auto) Baso # (Auto) Abs Immat Gran (auto) Absolute Neuts (auto) Absolute Nucleated RBC Nucleated RBC % (auto) VBG pH VBG pCO2 VBG pO2 VBG HCO3 VBG O2 Saturation VBG Base Excess Sodium Potassium Chloride Carbon Dioxide Anion Gap BUN Creatinine Estim Creat Clear Calc Estimated GFR POC Glucose 347 H 120 H 416 H* Random Glucose Estimat Average Glucose Hemoglobin A1c % Calcium Total Bilirubin AST ALT Alkaline Phosphatase Total Protein Albumin Triglycerides Cholesterol LDL Cholesterol, Calc HDL Cholesterol Beta-Hydroxybutyrate Urine Color Urine Appearance Urine pH Ur Specific [place] Urine Protein Urine Glucose (UA) Urine Ketones Urine Blood Urine Nitrite Ur Leukocyte Esterase Urine RBC Urine WBC Ur Squamous Epith Cells Urine Bacteria Hyaline Casts Urine Test Urine Opiates Screen Ur Buprenorphine Scrn Ur Oxycodone Screen Urine Methadone Screen Urine Fentanyl Screen Ur Barbiturates Screen Ur Phencyclidine Scrn Ur Amphetamines Screen U Benzodiazepines Scrn Urine Cocaine Screen U Marijuana (THC) Screen Ethyl Alcohol COVID-19 (NUBIA) COVID-19 [employer] 10/25/23 10/25/23 10/26/23 17:31 19:59 02:06 WBC RBC Hgb Hct MCV MCH MCHC RDW Plt Count MPV Immature Gran % (Auto) Neut % (Auto) Lymph % (Auto) [place] % (Auto) Eos % (Auto) Baso % (Auto) Lymph # (Auto) [place] # (Auto) Eos # (Auto) Baso # (Auto) Abs Immat Gran (auto) Absolute Neuts (auto) Absolute Nucleated RBC Nucleated RBC % (auto) VBG pH VBG pCO2 VBG pO2 VBG HCO3 VBG O2 Saturation VBG Base Excess Sodium Potassium Chloride Carbon Dioxide Anion Gap BUN Creatinine Estim Creat Clear Calc Estimated GFR POC Glucose 368 H* 257 H 266 H Random Glucose Estimat Average Glucose Hemoglobin A1c % Calcium Total Bilirubin AST ALT Alkaline Phosphatase Total Protein Albumin Triglycerides Cholesterol LDL Cholesterol, Calc HDL Cholesterol Beta-Hydroxybutyrate Urine Color Urine Appearance Urine pH Ur Specific [place] Urine Protein Urine Glucose (UA) Urine Ketones Urine Blood Urine Nitrite Ur Leukocyte Esterase Urine RBC Urine WBC Ur Squamous Epith Cells Urine Bacteria Hyaline Casts Urine Test Urine Opiates Screen Ur Buprenorphine Scrn Ur Oxycodone Screen Urine Methadone Screen Urine Fentanyl Screen Ur Barbiturates Screen Ur Phencyclidine Scrn Ur Amphetamines Screen U Benzodiazepines Scrn Urine Cocaine Screen U Marijuana (THC) Screen Ethyl Alcohol COVID-19 (NUBIA) COVID-19 [employer] 10/26/23 10/26/23 10/26/23 07:46 11:15 14:38 WBC RBC Hgb Hct MCV MCH MCHC RDW Plt Count MPV Immature Gran % (Auto) Neut % (Auto) Lymph % (Auto) [place] % (Auto) Eos % (Auto) Baso % (Auto) Lymph # (Auto) [place] # (Auto) Eos # (Auto) Baso # (Auto) Abs Immat Gran (auto) Absolute Neuts (auto) Absolute Nucleated RBC Nucleated RBC % (auto) VBG pH VBG pCO2 VBG pO2 VBG HCO3 VBG O2 Saturation VBG Base Excess Sodium Potassium Chloride Carbon Dioxide Anion Gap BUN Creatinine Estim Creat Clear Calc Estimated GFR POC Glucose 394 H* 324 H 195 H Random Glucose Estimat Average Glucose Hemoglobin A1c % Calcium Total Bilirubin AST ALT Alkaline Phosphatase Total Protein Albumin Triglycerides Cholesterol LDL Cholesterol, Calc HDL Cholesterol Beta-Hydroxybutyrate Urine Color Urine Appearance Urine pH Ur Specific [place] Urine Protein Urine Glucose (UA) Urine Ketones Urine Blood Urine Nitrite Ur Leukocyte Esterase Urine RBC Urine WBC Ur Squamous Epith Cells Urine Bacteria Hyaline Casts Urine Test Urine Opiates Screen Ur Buprenorphine Scrn Ur Oxycodone Screen Urine Methadone Screen Urine Fentanyl Screen Ur Barbiturates Screen Ur Phencyclidine Scrn Ur Amphetamines Screen U Benzodiazepines Scrn Urine Cocaine Screen U Marijuana (THC) Screen Ethyl Alcohol COVID-19 (NU[place]) COVID-19 [employer] 10/26/23 10/26/23 10/27/23 16:51 19:45 08:22 WBC RBC Hgb Hct MCV MCH MCHC RDW Plt Count MPV Immature Gran % (Auto) Neut % (Auto) Lymph % (Auto) [place] % (Auto) Eos % (Auto) Baso % (Auto) Lymph # (Auto) [place] # (Auto) Eos # (Auto) Baso # (Auto) Abs Immat Gran (auto) Absolute Neuts (auto) Absolute Nucleated RBC Nucleated RBC % (auto) VBG pH VBG pCO2 VBG pO2 VBG HCO3 VBG O2 Saturation VBG Base Excess Sodium Potassium Chloride Carbon Dioxide Anion Gap BUN Creatinine Estim Creat Clear Calc Estimated GFR POC Glucose 237 H 350 H* 319 H Random Glucose Estimat Average Glucose Hemoglobin A1c % Calcium Total Bilirubin AST ALT Alkaline Phosphatase Total Protein Albumin Triglycerides Cholesterol LDL Cholesterol, Calc HDL Cholesterol Beta-Hydroxybutyrate Urine Color Urine Appearance Urine pH Ur Specific [place] Urine Protein Urine Glucose (UA) Urine Ketones Urine Blood Urine Nitrite Ur Leukocyte Esterase Urine RBC Urine WBC Ur Squamous Epith Cells Urine Bacteria Hyaline Casts Urine Test Urine Opiates Screen Ur Buprenorphine Scrn Ur Oxycodone Screen Urine Methadone Screen Urine Fentanyl Screen Ur Barbiturates Screen Ur Phencyclidine Scrn Ur Amphetamines Screen U Benzodiazepines Scrn Urine Cocaine Screen U Marijuana (THC) Screen Ethyl Alcohol COVID-19 (NUBIA) COVID-19 [employer] 10/27/23 10/27/23 10/27/23 11:38 16:59 19:50 WBC RBC Hgb Hct MCV MCH MCHC RDW Plt Count MPV Immature Gran % (Auto) Neut % (Auto) Lymph % (Auto) [place] % (Auto) Eos % (Auto) Baso % (Auto) Lymph # (Auto) [place] # (Auto) Eos # (Auto) Baso # (Auto) Abs Immat Gran (auto) Absolute Neuts (auto) Absolute Nucleated RBC Nucleated RBC % (auto) VBG pH VBG pCO2 VBG pO2 VBG HCO3 VBG O2 Saturation VBG Base Excess Sodium Potassium Chloride Carbon Dioxide Anion Gap BUN Creatinine Estim Creat Clear Calc Estimated GFR POC Glucose 243 H 148 H 161 H Random Glucose Estimat Average Glucose Hemoglobin A1c % Calcium Total Bilirubin AST ALT Alkaline Phosphatase Total Protein Albumin Triglycerides Cholesterol LDL Cholesterol, Calc HDL Cholesterol Beta-Hydroxybutyrate Urine Color Urine Appearance Urine pH Ur Specific [place] Urine Protein Urine Glucose (UA) Urine Ketones Urine Blood Urine Nitrite Ur Leukocyte Esterase Urine RBC Urine WBC Ur Squamous Epith Cells Urine Bacteria Hyaline Casts Urine Test Urine Opiates Screen Ur Buprenorphine Scrn Ur Oxycodone Screen Urine Methadone Screen Urine Fentanyl Screen Ur Barbiturates Screen Ur Phencyclidine Scrn Ur Amphetamines Screen U Benzodiazepines Scrn Urine Cocaine Screen U Marijuana (THC) Screen Ethyl Alcohol COVID-19 (NUB[place]) COVID-19 [employer] 10/28/23 10/28/23 10/28/23 07:43 11:53 16:31 WBC RBC Hgb Hct MCV MCH MCHC RDW Plt Count MPV Immature Gran % (Auto) Neut % (Auto) Lymph % (Auto) [place] % (Auto) Eos % (Auto) Baso % (Auto) Lymph # (Auto) [place] # (Auto) Eos # (Auto) Baso # (Auto) Abs Immat Gran (auto) Absolute Neuts (auto) Absolute Nucleated RBC Nucleated RBC % (auto) VBG pH VBG pCO2 VBG pO2 VBG HCO3 VBG O2 Saturation VBG Base Excess Sodium Potassium Chloride Carbon Dioxide Anion Gap BUN Creatinine Estim Creat Clear Calc Estimated GFR POC Glucose 208 H 171 H 251 H Random Glucose Estimat Average Glucose Hemoglobin A1c % Calcium Total Bilirubin AST ALT Alkaline Phosphatase Total Protein Albumin Triglycerides Cholesterol LDL Cholesterol, Calc HDL Cholesterol Beta-Hydroxybutyrate Urine Color Urine Appearance Urine pH Ur Specific [place] Urine Protein Urine Glucose (UA) Urine Ketones Urine Blood Urine Nitrite Ur Leukocyte Esterase Urine RBC Urine WBC Ur Squamous Epith Cells Urine Bacteria Hyaline Casts Urine Test Urine Opiates Screen Ur Buprenorphine Scrn Ur Oxycodone Screen Urine Methadone Screen Urine Fentanyl Screen Ur Barbiturates Screen Ur Phencyclidine Scrn Ur Amphetamines Screen U Benzodiazepines Scrn Urine Cocaine Screen U Marijuana (THC) Screen Ethyl Alcohol COVID-19 (NUBIA) COVID-19 [employer] 10/28/23 10/29/23 19:35 07:56 WBC RBC Hgb Hct MCV MCH MCHC RDW Plt Count MPV Immature Gran % (Auto) Neut % (Auto) Lymph % (Auto) [place] % (Auto) Eos % (Auto) Baso % (Auto) Lymph # (Auto) [place] # (Auto) Eos # (Auto) Baso # (Auto) Abs Immat Gran (auto) Absolute Neuts (auto) Absolute Nucleated RBC Nucleated RBC % (auto) VBG pH VBG pCO2 VBG pO2 VBG HCO3 VBG O2 Saturation VBG Base Excess Sodium Potassium Chloride Carbon Dioxide Anion Gap BUN Creatinine Estim Creat Clear Calc Estimated GFR POC Glucose 164 H 136 H Random Glucose Estimat Average Glucose Hemoglobin A1c % Calcium Total Bilirubin AST ALT Alkaline Phosphatase Total Protein Albumin Triglycerides Cholesterol LDL Cholesterol, Calc HDL Cholesterol Beta-Hydroxybutyrate Urine Color Urine Appearance Urine pH Ur Specific [place] Urine Protein Urine Glucose (UA) Urine Ketones Urine Blood Urine Nitrite Ur Leukocyte Esterase Urine RBC Urine WBC Ur Squamous Epith Cells Urine Bacteria Hyaline Casts Urine Test Urine Opiates Screen Ur Buprenorphine Scrn Ur Oxycodone Screen Urine Methadone Screen Urine Fentanyl Screen Ur Barbiturates Screen Ur Phencyclidine Scrn Ur Amphetamines Screen U Benzodiazepines Scrn Urine Cocaine Screen U Marijuana (THC) Screen Ethyl Alcohol COVID-19 (NUBIA) COVID-19 Clin Com 10/25/23 Unknown Urine clean catch - Urine sharma top Urine Culture - Final Escherichia coli Strep agalactiae (Grp B) DS: Summary Hospital Course Hospital Course: HPI: Patient is a 48-year-old female with history of insulin-dependent diabetes on insulin pump, depression, PTSD, alcohol dependence and opioid use disorder in sustained remission, who presents for momentary SI in the face of psychosocial stressors and relapse with alcohol. Patient reports it for about 11 months she has been totally sober from everything, in a good mood despite not being on any medication. Psychosocial stressors have been mounting however the past few months including her partner ill with liver cirrhosis; they live at home with his adult children who according to patient never help out around the house. Patient has been getting overwhelmed with all the chores and hurt feelings with the lack of help and support from her step kids. Patient relapsed with alcohol about 3 weeks ago and started drinking heavily daily, about a L of vodka day. With the alcohol relapse she began to get depressed and the other day made a suicidal comment, saying she wishes she were ; she meant to call AA but accidentally called 911 and as police came she went to the hospital. Patient does not think she needs medication for depression, but maybe some medication for anxiety. She thinks that her depression is situational only and will resolve once she gets back to being sober and gains perspective. on unit: -Pt has insulin pump at home; products not available to continue with pump so switched to sliding scale insulin; had evelvated sugars in AM (600+) and consult called to help regulate while on unit and sugars improved. -pt treatred for UTI Hospital course: on admission pt depressed but says she was never really suicidal and just made an offhanded comment about wishing she were ; she denies any recent SI, intent or plans at all; she feels that depression is situational and will resolve on its own; does not want medication and has limited trials on psychotropic medications (says has been stable w/out meds). Patient detoxed from alcohol using [facility], with low scores and w/out incident; discussed hx and pt is proud of hx of sobriety and wants to return. Patient soon stabilized and placed 3 day notice. She felt her mood improved and depression resolved; SI remained resolved. Pt thankful for time on unit to stabilize and get perspective on her home situation; she felt ready to return home and was future oriented and optimistic about staying sober. Pt remained in good behavioral and impulse control throughout her time on the unit and was appropriate w/ peers and staff. On day of discharge pt expressed gratitude for help received. Reviewed medications and pt did not want any medication refills other than Trazodone, saying she has ample supply of her other meds and will follow up with outpt provider for any other needs. Pt's 3 day notice due. While she remains vulnerable to relapse she has a plan for sobriety and is appropriate to return to the community for care. She is not in imminent risk for harm to self or others and request for dc honored. Time spent discussing smoking cessation with patient: 3 to 10 minutes Status at Discharge Functional status at discharge: independent ambulation Overall status at discharge: patient is back to baseline Time Spent with Patient Time attestation: Total time managing care of this patient today __40__ minutes. Time spent: Greater than 30 minutes Discharge Plan Discharge Anticipated Discharge Date/Time: 10/29/23 11:15 Patient Disposition: Home, Self-Care Discharge Diagnosis: MDD, moderate, severe without psychosis, in full remission Referrals: Human Resource Professional Referral: [facility] [Other] - 1 Week (Jaycob from [facility] should be reaching out to you within a week to assign a pyridine recovery operator; if you don't hear from him within a week of discharge, please call him at the above number, he is at extension [phone]. ) [facility] ([facility]) : Adri Ramos [Other] - 11/05/23 10:00 am (Hospital Discharge Appointment. Initial evaluation for therapy [place] [address]) Nilton Parikh MD [Primary Care Provider] - 1 Week (pt states she will make her own appointment with her pcp.) Discharge Medications: New cefuroxime axetil 500 mg Tablet 500 mg PO BID 3 Days Qty: 5 0RF trazodone 50 mg Tablet 50 mg PO BEDTIME PRN (Reason: Insomnia) 30 Days Qty: 30 0RF sumatriptan succinate 50 mg Tablet 50 mg PO DAILY MRX1 PRN (Reason: migraine) Qty: 0 0RF Continued (DME) subcutaneous insulin pump Misc MISCELLANEOUS ipratropium-albuterol 0.5 mg-3 mg(2.5 mg base)/3 mL solution for nebulization 3 ml inhalation QID PRN (Reason: wheezing) docusate sodium 100 mg capsule 100 mg PO BID PRN (Reason: constipation) insulin lispro 100 unit/mL solution 0 - 80 unit subcut DAILY Glucagon Emergency Kit (human) 1 mg recon soln 1 mg subcut NEEDED albuterol sulfate [Ventolin HFA] 90 mcg/actuation HFA aerosol inhaler 2 puff inhalation Q6H PRN (Reason: wheezing) (DME) Dexcom G6 Sensor Device MISCELLANEOUS Q10D (DME) Dexcom G6 Transmitter Device MISCELLANEOUS Qvar RediHaler 80 mcg/actuation HFA aerosol breath activated 1 inh INHALATION BID Discharge Orders: Discharge Order (Routine); Ordered 10/29/23 Ordered By: Jake Mckeon Diet: Diabetic diet Activity on Discharge: As tolerated Stand Alone Forms: Patient Portal Discharge page, Community Support Print Language: Amharic Care Plan Goals: Maintain mood and safe behaviors Take medications as prescribed Continue to pursue sobriety Practice coping skills Continue with outpatient providers and reach out to them as needed Health Concerns: Mood stability and behaviors Sobriety Diabetes, insulin dependent COPD UTI Migraine headache Plan of Treatment: Follow up with your PCP, psychiatric provider and other outpatient providers regarding above concerns Take medications as prescribed Assessment: Risk assessment at time of discharge:? Patient was interviewed prior to discharge and found to be fully oriented and without any SI or HI. Patient has improved insight and judgment and wants to continue treatment. Patient is not in imminent risk of harm to self or others and has a safety plan that includes presenting to the closest ER or calling 911 if feeling unsafe.? Patient has been observed closely by nursing and unit staff throughout admission; patient has not engaged in any behaviors that suggest dangerousness to self or others and has demonstrated appropriate behaviors and impulse control
== END 2023-10-29 11:15 | disposition home or self-care (01) | DRG 751 ==
LOC: HO.ED 22:52 → HO.PM5 10-24 13:00
PROVIDERS: Student in an Organized Health Care Education/Training Program; Admitting Provider Psychiatry & Neurology Psychiatry; Emergency Provider Emergency Medicine Emergency Medical Services; PCP Family Medicine; Visit Provider Psychiatry & Neurology Psychiatry
DX: F33.1 Major depressive disorder, recurrent, moderate (principal); E11.649 Type 2 diabetes mellitus with hypoglycemia without coma; R45.851 Suicidal ideations; F11.21 Opioid dependence, in remission; E11.65 Type 2 diabetes mellitus with hyperglycemia; F17.210 Nicotine dependence, cigarettes, uncomplicated; F43.10 Post-traumatic stress disorder, unspecified; T38.3X6A Underdosing of insulin and oral hypoglycemic [antidiabetic] drugs, initial encounter; N39.0 Urinary tract infection, site not specified; Y90.8 Blood alcohol level of 240 mg/100 ml or more; Z96.41 Presence of insulin pump (external) (internal); F10.229 Alcohol dependence with intoxication, unspecified; Z20.822 Contact with and (suspected) exposure to COVID-19; Z71.6 Tobacco abuse counseling; Z79.4 Long term (current) use of insulin; Z79.899 Other long term (current) drug therapy
CPT/HCPCS: 36415; 80048; 80053; 80061; 80307; 81001; 81025; 82010; 82803; 82947; 83036; 85025; 87086; 87088; 87147; 87186; 87635; 99285; S9485

== ENCOUNTER → 2023-10-24 12:41 | Outpatient (BNV) | payer OTHER, SELFPAY | PROVIDERS: Admitting Provider Psychiatry & Neurology Psychiatry; Emergency Provider Emergency Medicine Emergency Medical Services; PCP Family Medicine; Visit Provider Psychiatry & Neurology Psychiatry | DX: F33.1 Major depressive disorder, recurrent, moderate (principal); F43.11 Post-traumatic stress disorder, acute; F10.90 Alcohol use, unspecified, uncomplicated; N39.0 Urinary tract infection, site not specified | CPT/HCPCS: 99231; 99232 ==

== ENCOUNTER 2023-12-03 13:12 | Outpatient (AMB) | payer OTHER, SELFPAY ==
[2023-12-03 13:17] VITALS: BP 149/83; BMI 31.6
--- NOTE | 2023-12-03 13:17 | MHC.OFFVIS ---
Vital Signs 12/03/23 13:17 Height 5 ft 2 in Weight 172 lb 13.478 oz BMI 31.6 BP 149/83 H Blood Pressure Location Rt brachial Position Sitting Intake Visit Reasons: Colonoscopy, change in bowel habits Intake Note: Jenni presents in office today for colonoscopy screening and GI concerns. CC: Patient c/o abdominal bloating, lower abdominal pain and cramping, and constipation. Last colonoscopy when she was 42 at [facility]. Family hx of colon cancer (mother). 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 Accompanied by: Self / Same As Patient Allergies ibuprofen [IBUPROFEN] Allergy (Severe, Verified 12/03/23 13:23) LIGHTHEADED;FEELS LIKE CHEST IS CLOSING IN;CLAUSTROPHOBIC Seasonal Allergies Allergy (Severe, Verified 12/03/23 13:23) Sneezing Medication List - Last Reconciled 12/03/23 by LUL [facility] albuterol sulfate 90 mcg/actuation (Ventolin HFA) 2 puffs inhalation Q6H PRN beclomethasone dipropionate 80 mcg/actuation (Qvar RediHaler) 1 inh inhalation BID blood-glucose sensor (Dexcom G6 Sensor device) blood-glucose transmitter (Dexcom G6 Transmitter device) docusate sodium 100 mg PO BID PRN glucagon (Glucagon Emergency Kit) 1 mg subcut NEEDED insulin lispro 0 - 80 units subcut DAILY ipratropium-albuterol 0.5 mg-3 mg(2.5 mg base)/3 mL 3 mL inhalation QID PRN subcutaneous insulin pump sumatriptan succinate 50 mg PO DAILY MRX1 PRN trazodone 50 mg PO BEDTIME PRN 30 days HPI Comments Details: A 48 y/o female family hx crc-mother- @ 56 presents with constipation- she had a colonoscopy nearly 5 years ago- RB was normal, no polyps. She has chronic constipation- pcp taking stool softener-diet is not the best appetite soso- -early satiety, no wt loss--wt gain No nausea, vomiting, hematemesis, hematochezia fever chills no abdominal pain PFSH Medical History (Updated 12/03/23 @ 13:44 by Alva Willingham PA-C) Shoulder pain with history of repair of rotator cuff PTSD (post-traumatic stress disorder) MDD (major depressive disorder), recurrent episode, moderate Opioid use disorder Hypoxia Moderate obesity Hypercapnic respiratory failure, chronic Asthma Drug overdose Diabetes Transaminitis Pneumonia Pneumonia Post-tubal ligation syndrome Drug abuse in remission Asthma Diabetic acetonemia Surgical History H/O tubal ligation H/O colonoscopy Family History Mother Colon cancer Lung cancer Maternal Aunt Lung cancer Social History (Updated 12/03/23 @ 13:37 by Alva Willingham PA-C) Household Members: Significant Other and Other Household Members Other:: step children Housing: House Do you presently have visiting nurse or other home services: No Alcohol intake: current Alcohol intake frequency: 3 or more drinks per day Alcohol type: hard liquor Comment: pt does call with help w IV pole when OOB to bathroom Patient Tobacco Use Status: Current everyday Tobacco user Tobacco use type: Cigarette Cigarette Packs Per Day: 1 Cigarettes Per Day: 20 Years Smoked: 20 e-Cigarette/Vaping Use: Never Used Second Hand Smoke Exposure: Yes Substance Use Type: Former Substance User and Marijuana Advance Directives Date on File: 06/07/21 service: No Current occupational status: unemployed Sexual orientation: Straight/Heterosexual Review of Systems Const All systems reviewed & are unremarkable except as noted in HPI and below Card Denies chest pain and Denies dyspnea Resp Denies dyspnea GI Denies abdominal pain, Reports constipation, Reports early satiety, Denies nausea and Denies vomiting Physical Exam Vital Signs: Last Vital Signs BP 149/83 H 12/03/23 13:17 BMI result Body Mass Index 31.6 Const General: cooperative, comfortable and no acute distress Nutritional Appearance: overweight Orientation/consciousness: patient oriented x3 Limitations: no limitations Resp Effort & Inspection: normal respiratory effort and able to speak in complete sentences Auscultation: clear to auscultation bilaterally Neuro General: patient oriented x3 Psych Mental Status: mental status grossly normal Speech and movement: Normal speech and movement present Affect: normal affect Attitude: cooperative Thought process: Normal thought process present Thought content: Normal thought content present Results Reviewed Results Reviewed: GI consult- 2020- Assessment & Plan Assessment & Plan (1) Family history of colon cancer in mother: Code(s): Z80.0 - Family history of malignant neoplasm of digestive organs Category: Medical Plan: Colonoscopy-to be scheduled timing appropriate (2) Chronic constipation: Code(s): K59.09 - Other constipation Category: Medical Plan: Consistent bowel regimen High-fiber diet Adequate hydration (3) Early satiety: Code(s): R68.81 - Early satiety Category: Medical (4) Diabetes: Code(s): E11.9 - Type 2 diabetes mellitus without complications Category: Medical Plan Consistent bowel regimen High-fiber diet Adequate hydration GES Orders: Orders NM gastric emptying study 12/03/23 E11.9 - Type 2 diabetes mellitus without complications, R68.81 - Early satiety Medications: New psyllium husk (Metamucil) mix into at least 8 oz of water or juice before administering 1 tbsp PO DAILY 30 days 660 grams 5RF sennosides (senna) 8.6 mg PO DAILY PRN 30 caps 1RF constipation bisacodyl (Dulcolax (bisacodyl)) 10 mg CA DAILY PRN 20 ea 2RF constipation Patient Instructions: Consistent bowel regimen High-fiber diet Adequate hydration [id number] for results Call with questions orconcerns Coding Level of Care Code New Pt Level 3 (97352) Diagnoses Family history of colon cancer in mother Z80.0 Chronic constipation K59.09 Early satiety R68.81 Diabetes E11.9 Time Spent (min) 35
== END 2023-12-03 13:51 | disposition home or self-care (01) ==
PROVIDERS: Visit Provider Physician Assistant
DX: Z80.0 Family history of malignant neoplasm of digestive organs (principal); K59.09 Other constipation; R68.81 Early satiety; E11.9 Type 2 diabetes mellitus without complications
CPT/HCPCS: 99203

== ENCOUNTER → 2023-12-03 13:12 | Outpatient (BNVA) | payer OTHER, SELFPAY | PROVIDERS: Visit Provider Physician Assistant | DX: R68.81 Early satiety (principal); K59.09 Other constipation; E11.9 Type 2 diabetes mellitus without complications; Z80.0 Family history of malignant neoplasm of digestive organs | CPT/HCPCS: 99202 ==

== ENCOUNTER → 2024-01-09 07:32 | Outpatient (REF) | payer OTHER, SELFPAY ==
--- NOTE | ~2024-01-09 | NM_ITS ---
EXAMINATION: NM RADIONUCLIDE SOLID FOOD GASTRIC EMPTYING 4-HOUR STUDY CLINICAL INFORMATION: Early satiety. COMPARISON: None TECHNIQUE: A standard meal consisting of 4 oz of Egg Beaters brand tagged with 990 microcuries Tc-99m Sulfur Colloid, 8 oz water and 2 slices of toast with jelly was administered orally to the patient. Images were obtained using a dual head gamma camera in the anterior and posterior projections over of the stomach immediately post ingestion and at hourly intervals up to 4 hours post ingestion. The anterior and posterior counts at each time interval were averaged using the geometric mean and expressed as percentage of the immediate post ingestion counts. FINDINGS: There is good visualization of activity in the stomach immediately post ingestion. As the study progresses, there is rapid clearance of activity from the stomach and visualization of progressively increasing small bowel activity. By the end of the first hour, there is almost no retention noted in the stomach. Retention in the stomach at each time interval was: 1 hour 100% (normal 37%-90%) Subsequent delayed images at 2, 3 and 4 hours interval was not performed due to rapid clearance of radiotracer activity at 1 hour interval. NM/NM gastric emptying study IMPRESSION: Rapid gastric emptying showing 100% clearance of radiotracer by 60 minutes post ingestion images. For solid meal, rapid gastric emptying is less than 30% at 60 minutes. Delayed gastric emptying criteria is more than 60% remaining at 120 minutes or more than 10% at 240 minutes. The 4-hour value is the best discriminator of a normal or abnormal result). Gastric emptying study grading per JNMT Consensus Recommendations in 2008 (https://tech.snmjournals.org/content/36/1/44) Grade 1 (mild retention): 11-20% at 4h Grade 2 (moderate retention): 21-35% at 4h Grade 3 (severe retention): 36-50% at 4h Grade 4 (very severe retention): >50% retention at 4h
== END ==
LOC: HO.NUCMED 07:32
PROVIDERS: PCP Family Medicine; Visit Provider Physician Assistant
DX: R68.81 Early satiety (principal); E11.9 Type 2 diabetes mellitus without complications
CPT/HCPCS: 78264; A9541

== ENCOUNTER 2024-03-21 15:26 | Emergency (ER) | payer OTHER, SELFPAY ==
--- NOTE | ~2024-03-21 | XR_ITS ---
EXAMINATION: XR CHEST CLINICAL INFORMATION: Productive cough. COMPARISON: May 19, 2023 TECHNIQUE: 2 views of the chest were obtained. FINDINGS: The lungs are well expanded. Stable prominence of the central pulmonary vasculature. There is mild diffuse interstitial edema. No pleural effusion. No focal consolidation. Cardiac silhouette is unchanged. XR/XR chest 2V IMPRESSION: Interstitial edema. Electronically signed by: Medardo Dunbar MD 03/21/2024 04:30 PM EDT
[2024-03-21 15:37] VITALS: BP 139/69; PULSE 96; RESP 17; TEMP 37.1; O2SAT 92; BMI 32.5
--- NOTE | 2024-03-21 15:38 | ED.GENADULT ---
HPI - General Adult General Chief complaint: Upper Respiratory Symptoms Stated complaint: iddzhiot-gldjj-ebro sugar Time Seen by Provider: 03/21/24 22:07 Source: patient Mode of arrival: ambulatory Limitations: no limitations History of Present Illness ED Provider: Dr. Barr HPI narrative: Patient had 2 days of fever with weakness, shortness of breath, nausea and vomiting. Today no fever but she feels worse and her sugars were increasing. Mostly concerned that she has pneumonia. Onset (ago): day(s) Related Data Home Medications ?Medication ?Instructions ?Recorded ?Confirmed subcutaneous insulin pump 10/04/20 10/24/23 albuterol sulfate 90 mcg/actuation 2 puff inhalation Q6H PRN wheezing 10/23/23 10/24/23 aerosol inhaler (Ventolin HFA) beclomethasone dipropionate 80 1 inh inhalation BID 10/23/23 10/24/23 mcg/actuation HFA breath activated aerosol (Qvar RediHaler) blood-glucose sensor ([employer] G6 10/23/23 10/24/23 Sensor device) blood-glucose transmitter (Dexcom 10/23/23 10/24/23 G6 Transmitter device) docusate sodium 100 mg capsule 100 mg PO BID PRN constipation 10/23/23 10/24/23 glucagon 1 mg solution for 1 mg subcut NEEDED hypoglycemia 10/23/23 10/24/23 injection (Glucagon Emergency Kit) insulin lispro 100 unit/mL 0 - 80 unit subcut DAILY 10/23/23 10/24/23 subcutaneous solution ipratropium 0.5 mg-albuterol 3 mg 3 ml inhalation QID PRN wheezing 10/23/23 10/24/23 (2.5 mg base)/3 mL nebulization soln Previous Rx's ?Medication ?Instructions ?Recorded sumatriptan succinate 50 mg tablet 50 mg PO DAILY MRX1 PRN migraine 10/29/23 #0 tabs trazodone 50 mg tablet 50 mg PO BEDTIME PRN Insomnia 30 10/29/23 days #30 tabs bisacodyl 10 mg rectal suppository 10 mg NE DAILY PRN constipation 12/03/23 (Dulcolax (bisacodyl)) #20 ea psyllium husk 3.4 gram/5.4 gram 1 tbsp PO DAILY 30 days #660 grams 12/03/23 oral powder (Metamucil) sennosides 8.6 mg capsule (senna) 8.6 mg PO DAILY PRN constipation 12/03/23 #30 caps Allergies Allergy/AdvReac Type Severity Reaction Status Date / Time ibuprofen [IBUPROFEN] Allergy Severe LIGHTHEADED;FEELS Verified 03/21/24 15:43 LIKE CHEST IS CLOSING IN;CLAUSTROPHOBIC Seasonal Allergies Allergy Severe Sneezing Verified 03/21/24 15:43 Review of Systems Review of Systems: Yes all other systems are reviewed and are negative Neurologic: Denies Sensory deficit (Neuro) [facility] Past Medical History Medical History Shoulder pain with history of repair of rotator cuff PTSD (post-traumatic stress disorder) MDD (major depressive disorder), recurrent episode, moderate Opioid use disorder Hypoxia Moderate obesity Hypercapnic respiratory failure, chronic Asthma Drug overdose Diabetes Transaminitis Pneumonia Pneumonia Post-tubal ligation syndrome Drug abuse in remission Asthma Diabetic acetonemia Surgical History H/O tubal ligation H/O colonoscopy Family History Family History Mother Colon cancer Lung cancer Maternal Aunt Lung cancer Social History Social History Household Members: Significant Other and Other Household Members Other:: step children Housing: House Do you presently have visiting nurse or other home services: No Alcohol intake: current Alcohol intake frequency: 3 or more drinks per day Alcohol type: hard liquor Comment: pt does call with help w IV pole when OOB to bathroom Patient Tobacco Use Status: Current everyday Tobacco user Tobacco use type: Cigarette Cigarette Packs Per Day: 1 Cigarettes Per Day: 20 Years Smoked: 20 e-Cigarette/Vaping Use: Never Used Second Hand Smoke Exposure: Yes Substance Use Type: Former Substance User and Marijuana Advance Directives: Yes Advance Directives on File: Yes Advance Directives Date on File: 06/07/21 service: No Current occupational status: unemployed Sexual orientation: Straight/Heterosexual Physical Exam ED Vital Signs: Vital Signs - 24 hr 03/21/24 15:37 03/21/24 20:28 03/21/24 22:18 Temperature 98.8 F 99.0 F 98.6 F Pulse Rate 96 87 83 Respiratory Rate 17 14 18 Blood Pressure 139/69 148/74 H 127/70 Pulse Oximetry 92 92 92 Oxygen Delivery Method Room Air Room Air Room Air 03/21/24 22:57 Temperature Pulse Rate 78 Respiratory Rate 16 Blood Pressure Pulse Oximetry Oxygen Delivery Method BMI result Body Mass Index 32.5 Const Other: female looking older than stated age Nutritional Appearance: average body habitus Orientation/consciousness: oriented to person and patient oriented x3 Limitations: no limitations HENMT Head: Yes normal to inspection Ears: external ears normal General nose exam: Normal external nose present Mouth: Normal oral and palatal mucosa present and oropharynx normal Throat: Yes posterior oropharynx normal Eyes General: appearance normal, both eyes and all related structures Neck Neck: Yes normal visual inspection Chest Chest palpation & inspection: normal inspection of the chest Resp Other: slight bilateral wheeze Cardio Jugular venous distension: no JVD Rate: regular rate Rhythm: regular rhythm Heart sounds: S1 normal heart sound present and S2 normal heart sound present GI Inspection: Yes normal to inspection Palpation (GI): Soft to palpation, nontender and No hepatosplenomegaly present Auscultation: normal bowel sounds General: Yes no CVA tenderness Back/Spine/Pelvis Back: no CVA tenderness Skin General skin exam: no rashes or lesions noted Neuro General: oriented to person and patient oriented x3 Cranial nerves: Yes CN's II-XII intact bilaterally Motor exam (neuro): 5/5 motor strength present throughout Sensory Exam: No Sensory deficit (Neuro) Extrem General: Yes normal to inspection Psych Appearance: grossly normal Course Course Course Narrative: This is a Rapid Medical Examination (RME) performed by Robert Marrero PA-C in triage. Full HPI, ROS, assessment and treatment plan per primary provider in the Main ED. 49 yo female hx of etoh abuse, PTSD, DM here for eval of fever (tmax 101.7), productive cough, and post-prandial nausea/vomiting x1 wk. glucose at home 482. no known sick contacts. Plan: viral swabs, labs, cxr Reevaluation(s) Reevaluation #1: patient with viral URI, slight wheeze, CXR: no consolidation, glucose improved, will hydrate replete magnesium, give a breathing treatment and dc home Time: 23:53 Medications Administered Generic Name Dose Route Start Last Admin Trade Name Freq PRN Reason Stop Dose Admin Magnesium Sulfate 2 gm in 50 mls @ 25 mls/hr 03/21/24 22:11 03/21/24 22:22 Magnesium Sulfate/H2o IV 03/22/24 00:10 25 mls/hr ONCE ONE Administration Discontinued Medications Generic Name Dose Route Start Last Admin Trade Name Jose Angel PRN Reason Stop Dose Admin Albuterol/Ipratropium 3 ml 03/21/24 22:16 03/21/24 22:54 Albuterol/Iprat 2.5/0.5mg 3 Ml Ampul.Neb INHALE 03/21/24 22:17 3 ml ONCE ONE Administration Sodium Chloride 500 mls @ 999 mls/hr 03/21/24 22:15 03/21/24 22:22 Ns IV 03/21/24 22:45 999 mls/hr .Q31M SILKE Administration Medical Decision Making Differential Diagnosis Differential Diagnoses: The differential diagnosis associated with the presentation includes (pneumonia, covid, flu, upper respiratory infection, asthma) Admission/Observation Consideration of admission/observation: Escalation of care including admission/observation considered (upon arrival admission was considered) Lab Data 03/21/24 16:19 03/21/24 16:19 Labs: Lab Results 03/21/24 03/21/24 03/21/24 Range/Units 16:19 17:40 20:27 WBC 14.7 H (4.8-10.8) X10*3/uL RBC 4.43 (4.20-5.50) X10*6/uL Hgb 13.4 (12.0-16.0) g/dl Hct 37.6 (37.0-47.0) % MCV 84.9 (80.0-98.0) fL MCH 30.2 (27.0-33.0) pg MCHC 35.6 H (31.0-35.0) g/dl RDW 13.0 (11.0-16.0) % Plt Count 349 D (160-400) X10*3/uL MPV 9.5 (9.4-12.3) fL Immature Gran % (Auto) 0.5 H (0.0-0.4) % Neut % (Auto) 79.9 H (45-73) % Lymph % (Auto) 14.2 L (20-40) % [place] % (Auto) 5.2 (2-11) % Eos % (Auto) 0.1 (0-4) % Baso % (Auto) 0.1 (0-2) % Lymph # (Auto) 2.1 (1.2-4.9) X10*3/uL [place] # (Auto) 0.8 (0.1-1.2) X10*3/uL Eos # (Auto) 0.0 (0.0-0.4) X10*3/uL Baso # (Auto) 0.0 (0.0-0.2) X10*3/uL Abs Immat Gran (auto) 0.07 H (0.00-0.03) X10*3/uL Absolute Neuts (auto) 11.7 H (2.0-8.3) x10*3/uL Absolute Nucleated RBC 0.000 (0.0-0.012) X10*3/uL Nucleated RBC % (auto) 0.0 (0.0-0.2) /100WBC Sodium 131 L (135-145) mmol/L Potassium 3.9 (3.3-5.1) mmol/L Chloride 97 (96-108) mmol/L Carbon Dioxide 25 (22-29) mmol/L Anion Gap 13 (12-20) BUN 9 (9-16) mg/dL Creatinine 0.76 (0.5-1.4) mg/dL Estim Creat Clear Calc 77.9 Estimated GFR > 60 POC Glucose 185 H (60-115) mg/dL Random Glucose 444 H* (60-115) mg/dL Calcium 8.6 D (8.4-10.2) mg/dL Magnesium 1.3 L* (1.6-2.6) mg/dL Total Bilirubin 0.3 (0.0-1.0) mg/dL AST 19 (5-31) U/L ALT 16 (0-31) U/L Alkaline Phosphatase 98 (39-117) U/L Total Protein 7.1 (6.5-8.0) g/dL Albumin 3.4 L (3.5-5.0) g/dL Lipase 5 L (8-78) U/L Urine Color Yellow Urine Appearance Clear Urine pH 6.5 (5.0-9.0) Ur Specific [place] >= 1.030 H (1.005-1.025) Urine Protein 100 (2+) H (Neg-Trace) mg/dL Urine Glucose (UA) >=1000 H (Negative) mg/dL Urine Ketones Negative (Negative) mg/dL Urine Blood Negative (Negative) Urine Nitrite Negative (Negative) Ur Leukocyte Esterase Negative (Negative) Urine RBC 0-2 (0-2) /HPF Urine WBC 0-5 (0-5) /HPF Ur Squamous Epith Cells 0-2 (0-2) /HPF Urine Bacteria None Seen (None Seen) Hyaline Casts 0-2 (0-2) /LPF Influenza Type A (PCR) NEGATIVE (Negative) Influenza Type B (PCR) NEGATIVE (Negative) RSV RNA Qual (PCR) NEGATIVE (Negative) SARS-CoV-2 RNA (RT-PCR) NEGATIVE (Negative) Independent Interpretation I performed an independent interpretation of an: Plain X-Ray (CXR: no infiltrate) Prescription Management I considered prescription management with: Antibiotic (no infiltrate seen will treat for viral infection no abx needed) Chronic Conditions Patient?s care impacted by: Diabetes Discharge Plan Discharge Clinical Impression: Upper respiratory infection, Viral infection, Asthma Patient Disposition: Home, Self-Care Instructions: Asthma (ED), Upper Respiratory Infection (ED), Viral Syndrome (ED) Prescriptions: No Action (DME) subcutaneous insulin pump Misc MISCELLANEOUS ipratropium-albuterol 0.5 mg-3 mg(2.5 mg base)/3 mL solution for nebulization 3 ml inhalation QID PRN (Reason: wheezing) docusate sodium 100 mg capsule 100 mg PO BID PRN (Reason: constipation) insulin lispro 100 unit/mL solution 0 - 80 unit subcut DAILY Glucagon Emergency Kit (human) 1 mg recon soln 1 mg subcut NEEDED albuterol sulfate [Ventolin HFA] 90 mcg/actuation HFA aerosol inhaler 2 puff inhalation Q6H PRN (Reason: wheezing) (DME) Dexcom G6 Sensor Device MISCELLANEOUS Q10D (DME) Dexcom G6 Transmitter Device MISCELLANEOUS Qvar RediHaler 80 mcg/actuation HFA aerosol breath activated 1 inh INHALATION BID trazodone 50 mg Tablet 50 mg PO BEDTIME PRN (Reason: Insomnia) 30 Days Qty: 30 0RF sumatriptan succinate 50 mg Tablet 50 mg PO DAILY MRX1 PRN (Reason: migraine) Qty: 0 0RF Metamucil 3.4 gram/5.4 gram powder 1 tbsp PO DAILY 30 Days Qty: 660 5RF Rx Instructions: mix into at least 8 oz of water or juice before administering senna 8.6 mg capsule 8.6 mg PO DAILY PRN (Reason: constipation) Qty: 30 1RF bisacodyl [Dulcolax (bisacodyl)] 10 mg suppository 10 mg NE DAILY PRN (Reason: constipation) Qty: 20 2RF Referrals: Nilton Parikh MD [Primary Care Provider] - 1 week Print Language: Kyrgyz
[2024-03-21 16:26] LABS: MANUAL DIFF FLAG NO
[2024-03-21 16:30] LABS: Basophils Percent Auto 0.1 % (0-2); Eosinophils Percent Auto 0.1 % (0-4); Hematocrit 37.6 % (37.0-47.0); Hemoglobin 13.4 g/dl (12.0-16.0); Imm Gran Abs Auto 0.07 X10*3/uL (0.00-0.03); Imm Gran Pct Auto 0.5 % (0.0-0.4); Lymphocytes Absolute Auto 2.1 X10*3/uL (1.2-4.9); Lymphocytes Percent Auto 14.2 % (20-40); Mean Corpuscular HGB Conc 35.6 g/dl (31.0-35.0); Mean Corpuscular Hemoglobin 30.2 pg (27.0-33.0); Mean Corpuscular Volume 84.9 fL (80.0-98.0); Mean Platelet Volume 9.5 fL (9.4-12.3); Monocytes Absolute Auto 0.8 X10*3/uL (0.1-1.2); Monocytes Percent Auto 5.2 % (2-11); Neutrophils Absolute Auto 11.7 x10*3/uL (2.0-8.3); Neutrophils Percent Auto 79.9 % (45-73); Platelet Count 349 X10*3/uL (160-400); Red Blood Count 4.43 X10*6/uL (4.20-5.50); White Blood Count 14.7 X10*3/uL (4.8-10.8)
[2024-03-21 16:51] LABS: Alanine Aminotransferase 16 U/L (0-31); Albumin Level 3.4 g/dL (3.5-5.0); Alkaline Phosphatase 98 U/L (39-117); Anion Gap 13 (12-20); Aspartate Amino Transferase 19 U/L (5-31); Bilirubin Total 0.3 mg/dL (0.0-1.0); Blood Urea Nitrogen 9 mg/dL (9-16); Calcium 8.6 mg/dL (8.4-10.2); Carbon Dioxide 25 mmol/L (22-29); Chloride 97 mmol/L (96-108); Creatinine Clr Calc Pharmacy 77.9; Estimated Glomerular Filt Rate > 60; Glucose Random 444 mg/dL (60-115); Lipase 5 U/L (8-78); Magnesium 1.3 mg/dL (1.6-2.6); Potassium 3.9 mmol/L (3.3-5.1); Sodium 131 mmol/L (135-145); Total Protein 7.1 g/dL (6.5-8.0)
[2024-03-21 17:10] LABS: Influenza A PCR NEGATIVE (Negative); Influenza B PCR NEGATIVE (Negative); Resp Syncy Virus RNA Qual PCR NEGATIVE (Negative); SARS COV2 PCR INHOUSE NEGATIVE (Negative)
[2024-03-21 17:48] LABS: Appearance Urine Clear; Color Urine Yellow; Glucose Urine UA >=1000 mg/dL (Negative); Leukocyte Esterase Urine Negative (Negative); Nitrite Urine Negative (Negative); PH 6.5 (5.0-9.0); Specific Gravity - Urine >= 1.030 (1.005-1.025); UMIC TRIGGER UACC YES; Urine Blood Negative (Negative); Urine Ketones Negative (Negative); Urine Protein 100 (2+) mg/dL (Neg-Trace)
[2024-03-21 17:54] LABS: Bacteria Urine None Seen (None Seen); Hyaline Casts Urine 0-2 /LPF (0-2); RBC Urine 0-2 /HPF (0-2); Squamous Epithelial Cell Urine 0-2 /HPF (0-2); WBC Urine 0-5 /HPF (0-5)
[2024-03-21 20:28] VITALS: BP 148/74; PULSE 87; RESP 14; TEMP 37.2; O2SAT 92
[2024-03-21 20:35] LABS: Glucose, Whole Blood 185 mg/dL (60-115)
--- NOTE | 2024-03-21 21:52 | PC.NURSE ---
This nurse notified by tech that pt was feeling sob and spo2 was 86%. T/w in to assess pt , SPO2 91-93% on RS, lung sounds clear pt reports no diagnosis of COPD but working with [facility] pulmonology d/t lung issues. PT is current everyday smoker
[2024-03-21 22:18] VITALS: BP 127/70; PULSE 83; RESP 18; TEMP 37; O2SAT 92
[2024-03-21] MEDS: Magnesium Sulfate/H2O 2 GM/50 ML PIGGYBACK IV (22:22)
[2024-03-21] MEDS: 0.9 % Sodium Chloride 500 ML 999 ML IV (22:22)
--- NOTE | 2024-03-21 22:29 | PC.NURSE ---
#20 IV placed in L-AC, IV fluids and magnesium running. Pt has no complaints at this time.
[2024-03-21] MEDS: Albuterol/Iprat 2.5/0.5MG 3 ML AMPUL.NEB INHALE (22:54)
[2024-03-21 22:57] VITALS: PULSE 78; RESP 16; O2SAT 92
[2024-03-22] VITALS: O2SAT 93
[2024-03-22 00:08] VITALS: BP 144/68; PULSE 84; RESP 20; TEMP 37.4; O2SAT 93
[2024-03-22 01:12] VITALS: BP 144/68; PULSE 84; RESP 20; TEMP 37.4; O2SAT 93
== END 2024-03-22 01:13 | disposition home or self-care (01) ==
PROVIDERS: Physician Assistant Medical; Emergency Provider Emergency Medicine; PCP Family Medicine
DX: J06.9 Acute upper respiratory infection, unspecified (principal); J45.909 Unspecified asthma, uncomplicated; R05.9 Cough, unspecified; R11.2 Nausea with vomiting, unspecified; Z03.818 Encounter for observation for suspected exposure to other biological agents ruled out; Z79.899 Other long term (current) drug therapy
CPT/HCPCS: 0241U; 71046; 80053; 81001; 82947; 83690; 83735; 85025; 94640; 96361; 96374; 99284; 99285; J3475

== ENCOUNTER 2024-05-26 16:28 | Emergency (ER) | payer OTHER, SELFPAY ==
--- NOTE | ~2024-05-26 | US_ITS ---
EXAMINATION: US ABDOMEN LIMITED CLINICAL INFORMATION: Right upper quadrant abdominal pain.. COMPARISON: None available. TECHNIQUE: Real-time imaging of the right upper quadrant abdominal viscera. FINDINGS: PANCREAS: Normal. LIVER: Normal. The liver is normal in size. The liver contour is normal. Parenchymal echogenicity is normal. No focal hepatic lesion. There is no intrahepatic biliary duct dilatation seen. GALLBLADDER: Normal. The gallbladder is physiologically distended without evidence of stones, sludge, polyps, wall thickening or pericholecystic fluid. COMMON BILE DUCT: Normal in caliber measuring 0.2 cm in diameter. RIGHT KIDNEY: Normal. No hydronephrosis. No renal calculi or focal parenchymal lesions. The kidney measures 10.3 cm in maximum dimension. 0.6 cm cyst midpole. No follow-up imaging is recommended for simple renal cyst. FREE FLUID: None. US/US abdomen limited IMPRESSION: Normal ultrasound of the right upper quadrant. Electronically signed by: Wing Ferrell MD 05/26/2024 08:57 PM EST
[2024-05-26 16:37] VITALS: BP 136/65; PULSE 116; RESP 18; TEMP 36.6; O2SAT 95; BMI 31.0
--- NOTE | 2024-05-26 16:43 | ED.GENADULT ---
HPI - General Adult General Chief complaint: Abdominal Pain Stated complaint: UTI? Time Seen by Provider: 05/26/24 18:01 Source: patient History of Present Illness ED Provider: Kady HERNANDEZ narrative: 49-year-old female with past medical history of diabetes, depression, alcohol use disorder presenting for nausea and vomiting. Patient states that she has been experiencing 2 days of nausea and nonbloody nonbilious emesis. She also endorses feeling warm and chills and mild epigastric pain. She states that she has also noticed decreased and dark urine. Patient's last bowel movement was yesterday and it was normal. Patient denies chest pain, shortness of breath, head pain. Related Data Home Medications ?Medication ?Instructions ?Recorded ?Confirmed subcutaneous insulin pump 10/04/20 10/24/23 albuterol sulfate 90 mcg/actuation 2 puff inhalation Q6H PRN wheezing 10/23/23 10/24/23 aerosol inhaler (Ventolin HFA) beclomethasone dipropionate 80 1 inh inhalation BID 10/23/23 10/24/23 mcg/actuation HFA breath activated aerosol (Qvar RediHaler) blood-glucose sensor (Dexcom G6 10/23/23 10/24/23 Sensor device) blood-glucose transmitter (Dexcom 10/23/23 10/24/23 G6 Transmitter device) docusate sodium 100 mg capsule 100 mg PO BID PRN constipation 10/23/23 10/24/23 glucagon 1 mg solution for 1 mg subcut NEEDED hypoglycemia 10/23/23 10/24/23 injection (Glucagon Emergency Kit) insulin lispro 100 unit/mL 0 - 80 unit subcut DAILY 10/23/23 10/24/23 subcutaneous solution ipratropium 0.5 mg-albuterol 3 mg 3 ml inhalation QID PRN wheezing 10/23/23 10/24/23 (2.5 mg base)/3 mL nebulization soln Previous Rx's ?Medication ?Instructions ?Recorded sumatriptan succinate 50 mg tablet 50 mg PO DAILY MRX1 PRN migraine 10/29/23 #0 tabs trazodone 50 mg tablet 50 mg PO BEDTIME PRN Insomnia 30 10/29/23 days #30 tabs bisacodyl 10 mg rectal suppository 10 mg VT DAILY PRN constipation 12/03/23 (Dulcolax (bisacodyl)) #20 ea psyllium husk 3.4 gram/5.4 gram 1 tbsp PO DAILY 30 days #660 grams 12/03/23 oral powder (Metamucil) sennosides 8.6 mg capsule (senna) 8.6 mg PO DAILY PRN constipation 12/03/23 #30 caps Allergies Allergy/AdvReac Type Severity Reaction Status Date / Time ibuprofen [IBUPROFEN] Allergy Severe LIGHTHEADED;FEELS Verified 05/26/24 16:39 LIKE CHEST IS CLOSING IN;CLAUSTROPHOBIC Seasonal Allergies Allergy Severe Sneezing Verified 05/26/24 16:39 Review of Systems Review of Systems: Patient endorses decreased urination,nausea, vomiting and abdominal pain Yes all other systems are reviewed and are negative PMFSH Past Medical History Medical History Shoulder pain with history of repair of rotator cuff PTSD (post-traumatic stress disorder) MDD (major depressive disorder), recurrent episode, moderate Opioid use disorder Hypoxia Moderate obesity Hypercapnic respiratory failure, chronic Asthma Drug overdose Diabetes Transaminitis Pneumonia Pneumonia Post-tubal ligation syndrome Drug abuse in remission Asthma Diabetic acetonemia Surgical History H/O tubal ligation H/O colonoscopy Family History Family History Mother Colon cancer Lung cancer Maternal Aunt Lung cancer Social History Social History Household Members: Significant Other and Other Household Members Other:: step children Housing: House Do you presently have visiting nurse or other home services: No Alcohol intake: never Comment: pt does call with help w IV pole when OOB to bathroom Patient Tobacco Use Status: Current everyday Tobacco user Tobacco use type: Cigarette Cigarette Packs Per Day: 1 Cigarettes Per Day: 20 Years Smoked: 20 Smoked in Last 30 Days: Yes e-Cigarette/Vaping Use: Never Used Second Hand Smoke Exposure: Yes Use of substances other than those prescribed or required for medical reasons: No Substance Use Type: Former Substance User and Marijuana Advance Directives: No Advance Directives Information Provided: No Advance Directives Date on File: 06/07/21 Do you have a plan to hurt others: No Plan Patient : No service: No Current occupational status: unemployed Sexual orientation: Straight/Heterosexual Physical Exam ED Vital Signs: Vital Signs - 24 hr 05/26/24 16:37 05/26/24 18:12 05/26/24 19:06 Temperature 97.9 F 98.7 F Pulse Rate 116 H 109 H 100 Respiratory Rate 18 18 16 Blood Pressure 136/65 154/77 H 146/84 H Pulse Oximetry 95 96 Oxygen Delivery Method Room Air Room Air 05/26/24 20:31 05/27/24 00:00 05/27/24 01:13 Temperature 98.4 F 98.2 F Pulse Rate 92 100 92 Respiratory Rate 16 14 16 Blood Pressure 159/73 H 153/75 H 156/72 H Pulse Oximetry 95 93 93 Oxygen Delivery Method Room Air Room Air Room Air BMI result Body Mass Index 31.0 on exam patient is well-appearing in no acute distress. Lungs are clear to auscultation bilaterally. Normal S1-S2 regular rate rhythm. Abdomen is soft, nondistended with mild right upper and epigastric tenderness to palpation Course Course Course Narrative: RME performed by Tequila Ramirez PA-C. Patient is a 49 year old assigned female at presenting to the emergency department with nausea, vomiting, abdominal pain, and increase urination. Detailed physical exam and review of systems are deferred to the primary class teacher. Labs ordered. Patient placed back in the waiting room pending room availability and results. Medications Administered Generic Name Dose Route Start Last Admin Trade Name Freq PRN Reason Stop Dose Admin Insulin Human Regular 100 unit in 100 mls @ 7 mls/hr 05/26/24 18:15 05/26/24 23:28 Myxredlin IVCONT 1.75 unit/hr .[id number] SILKE 1.75 mls/hr Titration Protocol 7 UNIT/HR Potassium Chloride/Dextrose/Sod Cl 10 meq in 1,000 mls @ 150 mls/hr 05/26/24 21:15 05/26/24 23:30 Kcl 10 Meq In 5% Dex/0.45% Sod IVCONT 150 mls/hr .Q6H40M SILKE Administration Morphine Sulfate 2 mg 05/26/24 20:18 05/27/24 00:12 Morphine Sulfate 2 Mg/Ml Cartridge IVPUSH 2 mg Q5M PRN Administration Chest Pain Protocol Discontinued Medications Generic Name Dose Route Start Last Admin Trade Name Jose Angel PRN Reason Stop Dose Admin Sodium Chloride 1,000 mls @ 999 mls/hr 05/26/24 18:15 05/26/24 20:17 Ns IV 05/26/24 19:15 Infused .Q1H1M SILKE Infusion Sodium Chloride 1,000 mls @ 999 mls/hr 05/26/24 18:45 05/26/24 20:17 Ns IV 05/26/24 19:45 Infused .Q1H1M SILKE Infusion Insulin Glargine 20 unit 05/26/24 23:53 05/27/24 00:07 Insulin Glargine,Hum.Rec.Anlog 100 Unit/Ml 10 Ml Vial SUBCUT 05/26/24 23:54 20 unit ONCE ONE Administration Ondansetron HCl 4 mg 05/26/24 18:39 05/26/24 18:48 Ondansetron Hcl 4 Mg/2 Ml Vial IVPUSH 05/26/24 18:40 4 mg ONCE ONE Administration Ondansetron HCl 4 mg 05/26/24 21:57 05/26/24 22:02 Ondansetron Hcl 4 Mg/2 Ml Vial IVPUSH 05/26/24 21:58 4 mg ONCE ONE Administration Medical Decision Making Medical Decision Making MDM Narrative: This is a 49-year-old female with past medical history diabetes presenting for nausea, vomiting and abdominal pain. I am concerned for the following; DKA, dehydration, biliary disease, pancreatitis, gastroenteritis, gastritis - I reviewed the patient's EKG and do not appreciate any signs of ischemia - patient's lab work notable for elevated blood sugar, leukocytosis, stable H&H, hyperkalemia, elevated creatinine, elevated LFTs, elevated beta hydroxybutyrate, normal lipase - lab work concerning for hyponatremia, BRUNA and DKA - zofran given for nausea - insulin drip and fluids ordered - ICU consulted - rpt lab work showed closed anion gap and improvement in Cr and sodium; normal pH on VBG; insulin drip stopped however pt's insulin subsequently dipesh to 400s; insulin drip resumed - ICU consulted with hospitalist and decision to admit patient to floor was made - Patient was evaluated by hospitalist and requested to be discharged as there currently are not any beds on the floor and she would remain in the ED until the morning. I explained to patient that I can not safely discharge her and that she will be leaving AMA which she agreed to. I explained the risks of leaving which include but are not limited to permanent disability and . She stated that she understands these risks and will return if her symptoms worsen. I again recommended that she stay however she is adamant that she does not want to. Lab Data 05/26/24 17:08 05/26/24 22:03 Labs: Lab Results 05/26/24 05/26/24 05/26/24 Range/Units 17:08 18:25 18:53 WBC 19.2 H (4.8-10.8) X10*3/uL RBC 5.01 (4.20-5.50) X10*6/uL Hgb 15.1 (12.0-16.0) g/dl Hct 43.0 (37.0-47.0) % MCV 85.8 (80.0-98.0) fL MCH 30.1 (27.0-33.0) pg MCHC 35.1 H (31.0-35.0) g/dl RDW 14.3 (11.0-16.0) % Plt Count 346 (160-400) X10*3/uL MPV 11.0 (9.4-12.3) fL Immature Gran % (Auto) 0.6 H (0.0-0.4) % Neut % (Auto) 86.1 H (45-73) % Lymph % (Auto) 8.7 L (20-40) % [place] % (Auto) 4.5 (2-11) % Eos % (Auto) 0.0 (0-4) % Baso % (Auto) 0.1 (0-2) % Lymph # (Auto) 1.7 (1.2-4.9) X10*3/uL [place] # (Auto) 0.9 (0.1-1.2) X10*3/uL Eos # (Auto) 0.0 (0.0-0.4) X10*3/uL Baso # (Auto) 0.0 (0.0-0.2) X10*3/uL Abs Immat Gran (auto) 0.11 H (0.00-0.03) X10*3/uL Absolute Neuts (auto) 16.5 H (2.0-8.3) x10*3/uL Absolute Nucleated RBC 0.000 (0.0-0.012) X10*3/uL Nucleated RBC % (auto) 0.0 (0.0-0.2) /100WBC VBG pH 7.44 H (7.32-7.43) VBG pCO2 45 mmHg VBG pO2 44 mmHg VBG HCO3 31 H (22-26) mmol/L VBG O2 Saturation 71.0 % VBG Base Excess 6.4 mmol/L Sodium 125 L (135-145) mmol/L Potassium 5.4 H D (3.3-5.1) mmol/L Chloride 83 L (96-108) mmol/L Carbon Dioxide 25 (22-29) mmol/L Anion Gap 22 H (12-20) BUN 48 H (9-16) mg/dL Creatinine 1.54 H (0.5-1.4) mg/dL Estim Creat Clear Calc 37.5 Estimated GFR 36 POC Glucose 573 H* (60-115) mg/dL Random Glucose 638 H* (60-115) mg/dL Lactic Acid (0.5-2.0) mmol/L Calcium 9.8 D (8.4-10.2) mg/dL Magnesium 2.2 (1.6-2.6) mg/dL Total Bilirubin 0.7 (0.0-1.0) mg/dL Direct Bilirubin 0.3 (0.0-0.5) mg/dL AST 55 H (5-31) U/L ALT 56 H (0-31) U/L Alkaline Phosphatase 158 H (39-117) U/L Total Protein 7.8 (6.5-8.0) g/dL Albumin 4.2 (3.5-5.0) g/dL Lipase 8 (8-78) U/L Beta-Hydroxybutyrate 2.63 H (0.02-0.27) mmol/L Beta HCG, Quant < 2 mIU/mL Urine Color Urine Appearance Urine pH (5.0-9.0) Ur Specific [place] (1.005-1.025) Urine Protein (Neg-Trace) mg/dL Urine Glucose (UA) (Negative) mg/dL Urine Ketones (Negative) mg/dL Urine Blood (Negative) Urine Nitrite (Negative) Ur Leukocyte Esterase (Negative) Urine RBC (0-2) /HPF Urine WBC (0-5) /HPF Ur Squamous Epith Cells (0-2) /HPF Urine Bacteria (None Seen) Hyaline Casts (0-2) /LPF Influenza Type A (PCR) NEGATIVE (Negative) Influenza Type B (PCR) NEGATIVE (Negative) RSV RNA Qual (PCR) NEGATIVE (Negative) SARS-CoV-2 RNA (RT-PCR) NEGATIVE (Negative) 05/26/24 05/26/24 05/26/24 Range/Units 19:39 20:52 21:52 WBC (4.8-10.8) X10*3/uL RBC (4.20-5.50) X10*6/uL Hgb (12.0-16.0) g/dl Hct (37.0-47.0) % MCV (80.0-98.0) fL MCH (27.0-33.0) pg MCHC (31.0-35.0) g/dl RDW (11.0-16.0) % Plt Count (160-400) X10*3/uL MPV (9.4-12.3) fL Immature Gran % (Auto) (0.0-0.4) % Neut % (Auto) (45-73) % Lymph % (Auto) (20-40) % [place] % (Auto) (2-11) % Eos % (Auto) (0-4) % Baso % (Auto) (0-2) % Lymph # (Auto) (1.2-4.9) X10*3/uL [place] # (Auto) (0.1-1.2) X10*3/uL Eos # (Auto) (0.0-0.4) X10*3/uL Baso # (Auto) (0.0-0.2) X10*3/uL Abs Immat Gran (auto) (0.00-0.03) X10*3/uL Absolute Neuts (auto) (2.0-8.3) x10*3/uL Absolute Nucleated RBC (0.0-0.012) X10*3/uL Nucleated RBC % (auto) (0.0-0.2) /100WBC VBG pH (7.32-7.43) VBG pCO2 mmHg VBG pO2 mmHg VBG HCO3 (22-26) mmol/L VBG O2 Saturation % VBG Base Excess mmol/L Sodium (135-145) mmol/L Potassium (3.3-5.1) mmol/L Chloride (96-108) mmol/L Carbon Dioxide (22-29) mmol/L Anion Gap (12-20) BUN (9-16) mg/dL Creatinine (0.5-1.4) mg/dL Estim Creat Clear Calc Estimated GFR POC Glucose 370 H* 201 H 209 H (60-115) mg/dL Random Glucose (60-115) mg/dL Lactic Acid (0.5-2.0) mmol/L Calcium (8.4-10.2) mg/dL Magnesium (1.6-2.6) mg/dL Total Bilirubin (0.0-1.0) mg/dL Direct Bilirubin (0.0-0.5) mg/dL AST (5-31) U/L ALT (0-31) U/L Alkaline Phosphatase (39-117) U/L Total Protein (6.5-8.0) g/dL Albumin (3.5-5.0) g/dL Lipase (8-78) U/L Beta-Hydroxybutyrate (0.02-0.27) mmol/L Beta HCG, Quant mIU/mL Urine Color Urine Appearance Urine pH (5.0-9.0) Ur Specific [place] (1.005-1.025) Urine Protein (Neg-Trace) mg/dL Urine Glucose (UA) (Negative) mg/dL Urine Ketones (Negative) mg/dL Urine Blood (Negative) Urine Nitrite (Negative) Ur Leukocyte Esterase (Negative) Urine RBC (0-2) /HPF Urine WBC (0-5) /HPF Ur Squamous Epith Cells (0-2) /HPF Urine Bacteria (None Seen) Hyaline Casts (0-2) /LPF Influenza Type A (PCR) (Negative) Influenza Type B (PCR) (Negative) RSV RNA Qual (PCR) (Negative) SARS-CoV-2 RNA (RT-PCR) (Negative) 05/26/24 05/26/24 05/26/24 Range/Units 22:03 22:49 23:16 WBC (4.8-10.8) X10*3/uL RBC (4.20-5.50) X10*6/uL Hgb (12.0-16.0) g/dl Hct (37.0-47.0) % MCV (80.0-98.0) fL MCH (27.0-33.0) pg MCHC (31.0-35.0) g/dl RDW (11.0-16.0) % Plt Count (160-400) X10*3/uL MPV (9.4-12.3) fL Immature Gran % (Auto) (0.0-0.4) % Neut % (Auto) (45-73) % Lymph % (Auto) (20-40) % [place] % (Auto) (2-11) % Eos % (Auto) (0-4) % Baso % (Auto) (0-2) % Lymph # (Auto) (1.2-4.9) X10*3/uL [place] # (Auto) (0.1-1.2) X10*3/uL Eos # (Auto) (0.0-0.4) X10*3/uL Baso # (Auto) (0.0-0.2) X10*3/uL Abs Immat Gran (auto) (0.00-0.03) X10*3/uL Absolute Neuts (auto) (2.0-8.3) x10*3/uL Absolute Nucleated RBC (0.0-0.012) X10*3/uL Nucleated RBC % (auto) (0.0-0.2) /100WBC VBG pH (7.32-7.43) VBG pCO2 mmHg VBG pO2 mmHg VBG HCO3 (22-26) mmol/L VBG O2 Saturation % VBG Base Excess mmol/L Sodium 132 L (135-145) mmol/L Potassium 4.2 D (3.3-5.1) mmol/L Chloride 97 (96-108) mmol/L Carbon Dioxide 27 (22-29) mmol/L Anion Gap 12 (12-20) BUN 36 H (9-16) mg/dL Creatinine 0.87 (0.5-1.4) mg/dL Estim Creat Clear Calc 66.3 Estimated GFR > 60 POC Glucose 414 H* (60-115) mg/dL Random Glucose 231 H (60-115) mg/dL Lactic Acid 1.2 (0.5-2.0) mmol/L Calcium 8.5 D (8.4-10.2) mg/dL Magnesium (1.6-2.6) mg/dL Total Bilirubin (0.0-1.0) mg/dL Direct Bilirubin (0.0-0.5) mg/dL AST (5-31) U/L ALT (0-31) U/L Alkaline Phosphatase (39-117) U/L Total Protein (6.5-8.0) g/dL Albumin (3.5-5.0) g/dL Lipase (8-78) U/L Beta-Hydroxybutyrate (0.02-0.27) mmol/L Beta HCG, Quant mIU/mL Urine Color Yellow Urine Appearance Clear Urine pH 6.0 (5.0-9.0) Ur Specific [place] >= 1.030 H (1.005-1.025) Urine Protein 100 (2+) H (Neg-Trace) mg/dL Urine Glucose (UA) >=1000 H (Negative) mg/dL Urine Ketones 15 (Negative) mg/dL Urine Blood Negative (Negative) Urine Nitrite Negative (Negative) Ur Leukocyte Esterase Negative (Negative) Urine RBC 0-2 (0-2) /HPF Urine WBC 0-5 (0-5) /HPF Ur Squamous Epith Cells 3-5 (0-2) /HPF Urine Bacteria None Seen (None Seen) Hyaline Casts 0-2 (0-2) /LPF Influenza Type A (PCR) NEGATIVE (Negative) Influenza Type B (PCR) NEGATIVE (Negative) RSV RNA Qual (PCR) NEGATIVE (Negative) SARS-CoV-2 RNA (RT-PCR) NEGATIVE (Negative) 05/27/24 05/27/24 Range/Units 00:12 00:13 WBC (4.8-10.8) X10*3/uL RBC (4.20-5.50) X10*6/uL Hgb (12.0-16.0) g/dl Hct (37.0-47.0) % MCV (80.0-98.0) fL MCH (27.0-33.0) pg MCHC (31.0-35.0) g/dl RDW (11.0-16.0) % Plt Count (160-400) X10*3/uL MPV (9.4-12.3) fL Immature Gran % (Auto) (0.0-0.4) % Neut % (Auto) (45-73) % Lymph % (Auto) (20-40) % [place] % (Auto) (2-11) % Eos % (Auto) (0-4) % Baso % (Auto) (0-2) % Lymph # (Auto) (1.2-4.9) X10*3/uL [place] # (Auto) (0.1-1.2) X10*3/uL Eos # (Auto) (0.0-0.4) X10*3/uL Baso # (Auto) (0.0-0.2) X10*3/uL Abs Immat Gran (auto) (0.00-0.03) X10*3/uL Absolute Neuts (auto) (2.0-8.3) x10*3/uL Absolute Nucleated RBC (0.0-0.012) X10*3/uL Nucleated RBC % (auto) (0.0-0.2) /100WBC VBG pH 7.43 (7.32-7.43) VBG pCO2 39 mmHg VBG pO2 136 mmHg VBG HCO3 26 (22-26) mmol/L VBG O2 Saturation 99.0 % VBG Base Excess 2.3 mmol/L Sodium (135-145) mmol/L Potassium (3.3-5.1) mmol/L Chloride (96-108) mmol/L Carbon Dioxide (22-29) mmol/L Anion Gap (12-20) BUN (9-16) mg/dL Creatinine (0.5-1.4) mg/dL Estim Creat Clear Calc Estimated GFR POC Glucose 372 H* (60-115) mg/dL Random Glucose (60-115) mg/dL Lactic Acid (0.5-2.0) mmol/L Calcium (8.4-10.2) mg/dL Magnesium (1.6-2.6) mg/dL Total Bilirubin (0.0-1.0) mg/dL Direct Bilirubin (0.0-0.5) mg/dL AST (5-31) U/L ALT (0-31) U/L Alkaline Phosphatase (39-117) U/L Total Protein (6.5-8.0) g/dL Albumin (3.5-5.0) g/dL Lipase (8-78) U/L Beta-Hydroxybutyrate (0.02-0.27) mmol/L Beta HCG, Quant mIU/mL Urine Color Urine Appearance Urine pH (5.0-9.0) Ur Specific [place] (1.005-1.025) Urine Protein (Neg-Trace) mg/dL Urine Glucose (UA) (Negative) mg/dL Urine Ketones (Negative) mg/dL Urine Blood (Negative) Urine Nitrite (Negative) Ur Leukocyte Esterase (Negative) Urine RBC (0-2) /HPF Urine WBC (0-5) /HPF Ur Squamous Epith Cells (0-2) /HPF Urine Bacteria (None Seen) Hyaline Casts (0-2) /LPF Influenza Type A (PCR) (Negative) Influenza Type B (PCR) (Negative) RSV RNA Qual (PCR) (Negative) SARS-CoV-2 RNA (RT-PCR) (Negative) Discharge Plan Discharge Clinical Impression: BRUNA (acute kidney injury) DKA (diabetic ketoacidosis) Qualifiers: Diabetes mellitus type: other specified (including SCOOTER) Diabetes mellitus complication detail: without coma Qualified Code(s): E13.10 - Other specified diabetes mellitus with ketoacidosis without coma Patient Disposition: Left Against Medical Advice Additional Instructions: please return to the emergency department at your earliest convenience Prescriptions: No Action (DME) subcutaneous insulin pump Misc MISCELLANEOUS ipratropium-albuterol 0.5 mg-3 mg(2.5 mg base)/3 mL solution for nebulization 3 ml inhalation QID PRN (Reason: wheezing) docusate sodium 100 mg capsule 100 mg PO BID PRN (Reason: constipation) insulin lispro 100 unit/mL solution 0 - 80 unit subcut DAILY Glucagon Emergency Kit (human) 1 mg recon soln 1 mg subcut NEEDED albuterol sulfate [Ventolin HFA] 90 mcg/actuation HFA aerosol inhaler 2 puff inhalation Q6H PRN (Reason: wheezing) (DME) Dexcom G6 Sensor Device MISCELLANEOUS Q10D (DME) Dexcom G6 Transmitter Device MISCELLANEOUS Qvar RediHaler 80 mcg/actuation HFA aerosol breath activated 1 inh INHALATION BID trazodone 50 mg Tablet 50 mg PO BEDTIME PRN (Reason: Insomnia) 30 Days Qty: 30 0RF sumatriptan succinate 50 mg Tablet 50 mg PO DAILY MRX1 PRN (Reason: migraine) Qty: 0 0RF Metamucil 3.4 gram/5.4 gram powder 1 tbsp PO DAILY 30 Days Qty: 660 5RF Rx Instructions: mix into at least 8 oz of water or juice before administering senna 8.6 mg capsule 8.6 mg PO DAILY PRN (Reason: constipation) Qty: 30 1RF bisacodyl [Dulcolax (bisacodyl)] 10 mg suppository 10 mg VT DAILY PRN (Reason: constipation) Qty: 20 2RF Print Language: [place]
[2024-05-26 17:12] LABS: MANUAL DIFF FLAG NO
[2024-05-26 17:15] LABS: Basophils Percent Auto 0.1 % (0-2); Hemoglobin 15.1 g/dl (12.0-16.0); Imm Gran Abs Auto 0.11 X10*3/uL (0.00-0.03); Imm Gran Pct Auto 0.6 % (0.0-0.4); Lymphocytes Absolute Auto 1.7 X10*3/uL (1.2-4.9); Lymphocytes Percent Auto 8.7 % (20-40); Mean Corpuscular HGB Conc 35.1 g/dl (31.0-35.0); Mean Corpuscular Hemoglobin 30.1 pg (27.0-33.0); Mean Corpuscular Volume 85.8 fL (80.0-98.0); Monocytes Absolute Auto 0.9 X10*3/uL (0.1-1.2); Monocytes Percent Auto 4.5 % (2-11); Neutrophils Absolute Auto 16.5 x10*3/uL (2.0-8.3); Neutrophils Percent Auto 86.1 % (45-73); Platelet Count 346 X10*3/uL (160-400); Red Blood Count 5.01 X10*6/uL (4.20-5.50); Red Cell Distribution Width 14.3 % (11.0-16.0); White Blood Count 19.2 X10*3/uL (4.8-10.8)
[2024-05-26 17:42] LABS: Alanine Aminotransferase 56 U/L (0-31); Albumin Level 4.2 g/dL (3.5-5.0); Alkaline Phosphatase 158 U/L (39-117); Anion Gap 22 (12-20); Aspartate Amino Transferase 55 U/L (5-31); Bilirubin Total 0.7 mg/dL (0.0-1.0); Blood Urea Nitrogen 48 mg/dL (9-16); Calcium 9.8 mg/dL (8.4-10.2); Carbon Dioxide 25 mmol/L (22-29); Chloride 83 mmol/L (96-108); Creatinine Clr Calc Pharmacy 37.5; Estimated Glomerular Filt Rate 36; Glucose Random 638 mg/dL (60-115); Magnesium 2.2 mg/dL (1.6-2.6); Potassium 5.4 mmol/L (3.3-5.1); Sodium 125 mmol/L (135-145); Total Protein 7.8 g/dL (6.5-8.0)
--- NOTE | 2024-05-26 17:50 | PC.NURSE ---
Pt presents to ED from home, reports for past couple of days she has had nausea, lower ABD pain, trouble urinating and BGLs have been in 600s. Is a diabetic and has insulin pump on with continuous and bolus insulin. Denies fevers, CP, SOB, diarrhea. Alert and oriented, breathing even and unlabored, skin dry and pale.
[2024-05-26 17:54] LABS: Influenza A PCR NEGATIVE (Negative); Influenza B PCR NEGATIVE (Negative); Resp Syncy Virus RNA Qual PCR NEGATIVE (Negative); SARS COV2 PCR INHOUSE NEGATIVE (Negative)
--- NOTE | 2024-05-26 18:02 | ECG_ITS ---
Test Reason : ELECTROLYTE ABNORMALITY Blood Pressure : / mmHG Vent. Rate : 101 BPM Atrial Rate : 101 BPM P-R Int : 130 ms QRS Dur : 072 ms QT Int : 350 ms P-R-T Axes : 056 017 048 degrees QTc Int : 453 ms Sinus tachycardia Possible Left atrial enlargement Anterior infarct , age undetermined Abnormal ECG When compared with ECG of 22-DEC-2021 23:13, Anterior infarct is now Present Referred By: Neville Hillman Electronically Signed By:JAGUAR MATA
[2024-05-26 18:12] VITALS: BP 154/77; PULSE 109; RESP 18
--- NOTE | 2024-05-26 18:14 | PC.NURSE ---
Pt D/C her insulin pump, no longer on her. Sinus tach on bus driver/monitor.
[2024-05-26] MEDS: 0.9 % Sodium Chloride 1,000 ML 999 ML IV ×2 (18:16→18:49)
[2024-05-26 18:25] LABS: Beta-Hydroxybutyrate 2.63 mmol/L (0.02-0.27); Bilirubin Direct 0.3 mg/dL (0.0-0.5); Lipase 8 U/L (8-78)
[2024-05-26] MEDS: Insulin Regular/NS 100 UNIT/100 ML PLAST..BAG 7 UNIT IVCONT (18:26)
[2024-05-26 18:28] LABS: Glucose, Whole Blood 573 mg/dL (60-115)
[2024-05-26 18:33] LABS: HCG Quantitative < 2 mIU/mL
--- NOTE | 2024-05-26 18:35 | PC.NURSE ---
Insulin drip started per protocol with 2 RNs verifying, POC checked prior and will be done Q1 hr
[2024-05-26] MEDS: ondansetron HCL 4 MG/2 ML VIAL IVPUSH ×2 (18:48→22:02)
[2024-05-26 19:02] LABS: VBG Base Excess 6.4 mmol/L; VBG HCO3 31 mmol/L (22-26); VBG pCO2 45 mmHg; VBG pH 7.44 (7.32-7.43); VBG pO2 44 mmHg
[2024-05-26 19:02] LABS: Venous Blood Gas Refer to POC result
[2024-05-26 19:06] VITALS: BP 146/84; PULSE 100; RESP 16; TEMP 37.1; O2SAT 96
[2024-05-26 19:43] LABS: Glucose, Whole Blood 370 mg/dL (60-115)
[2024-05-26] MEDS: Morphine Sulfate 2 MG/ML CARTRIDGE IVPUSH (20:24)
[2024-05-26 20:31] VITALS: BP 159/73; PULSE 92; RESP 16; O2SAT 95
[2024-05-26 20:57] LABS: Glucose, Whole Blood 201 mg/dL (60-115)
[2024-05-26 22:21] LABS: Anion Gap 12 (12-20); Blood Urea Nitrogen 36 mg/dL (9-16); Calcium 8.5 mg/dL (8.4-10.2); Carbon Dioxide 27 mmol/L (22-29); Chloride 97 mmol/L (96-108); Creatinine Clr Calc Pharmacy 66.3; Estimated Glomerular Filt Rate > 60; Glucose Random 231 mg/dL (60-115); Potassium 4.2 mmol/L (3.3-5.1); Sodium 132 mmol/L (135-145)
[2024-05-26 22:22] LABS: Lactic Acid 1.2 mmol/L (0.5-2.0)
[2024-05-26 22:49] LABS: Influenza A PCR NEGATIVE (Negative); Influenza B PCR NEGATIVE (Negative); Resp Syncy Virus RNA Qual PCR NEGATIVE (Negative); SARS COV2 PCR INHOUSE NEGATIVE (Negative)
[2024-05-26 22:58] LABS: Appearance Urine Clear; Color Urine Yellow; Glucose Urine UA >=1000 mg/dL (Negative); Leukocyte Esterase Urine Negative (Negative); Nitrite Urine Negative (Negative); Specific Gravity - Urine >= 1.030 (1.005-1.025); UMIC TRIGGER UACC YES; Urine Blood Negative (Negative); Urine Ketones 15 mg/dL (Negative); Urine Protein 100 (2+) mg/dL (Neg-Trace)
[2024-05-26 23:00] LABS: Bacteria Urine None Seen (None Seen); Hyaline Casts Urine 0-2 /LPF (0-2); RBC Urine 0-2 /HPF (0-2); WBC Urine 0-5 /HPF (0-5)
--- NOTE | 2024-05-26 23:15 | PC.NURSE ---
Pt reports she feels her sugar is going back up again, reports some shortness of breath. Able to speak in full sentences.
[2024-05-26] MEDS: KCl 10 mEq in 5% Dex/0.45% Sod 10 MEQ/1,000 ML IV.SOLN 150 MEQ IVCONT (23:30)
--- NOTE | 2024-05-26 23:48 | PC.NURSE ---
Pt has an insulin drip running via pump and Potassium Chloride 10 mEq in D5 0.45 NS running via pump in the right arm. Compatibility checked with Jake in pharmacy. Pump for Potassium drip is programmed in pump under 0.45 NS running at 150 ml/hr per MAR. Pumped setting reviewed and checked with Latoya LUNA at the bedside.
[2024-05-27] VITALS: BP 153/75; PULSE 100; RESP 14; TEMP 36.9; O2SAT 93
[2024-05-27 00:07] LABS: Glucose, Whole Blood 414 mg/dL (60-115)
[2024-05-27 00:07] LABS: Glucose, Whole Blood 209 mg/dL (60-115)
[2024-05-27] MEDS: Insulin Glargine,Hum.rec.anlog 100 UNIT/ML 10 ML VIAL 20 UNIT SUBCUT (00:07)
[2024-05-27] MEDS: Morphine Sulfate 2 MG/ML CARTRIDGE IVPUSH (00:12)
[2024-05-27 00:13] LABS: Venous Blood Gas Refer to POC result
[2024-05-27 00:15] LABS: Glucose, Whole Blood 372 mg/dL (60-115)
[2024-05-27 00:17] LABS: VBG Base Excess 2.3 mmol/L; VBG HCO3 26 mmol/L (22-26); VBG pCO2 39 mmHg; VBG pH 7.43 (7.32-7.43); VBG pO2 136 mmHg
--- NOTE | 2024-05-27 00:21 | MHC.EDTECH ---
This tech took over care of patient at 2300,rounded and introduced self to pt,POC taken @0012 and is 372,RN aware,vitals taken,belongings list completed,copy placed in chart,call nunes in reach
--- NOTE | 2024-05-27 00:57 | PM.EVENT ---
Event Note Date of Service: 05/27/24 Event Note: Evaluated and examined patient. Still c/o abdominal pain and nausea, blood glucose is still uncontrolled. Hospitalization offered for symptoms and glucose controlled + further investigation. She wanted to leave AMA because there are no available beds for her tonight. ED provider was informed. Time Spent With Patient Time: Total time managing care of this patient today ____ minutes.
[2024-05-27 01:13] VITALS: BP 156/72; PULSE 92; RESP 16; TEMP 36.8; O2SAT 93
--- NOTE | 2024-05-27 01:13 | MHC.EDTECH ---
Rounds and vitals completed,POC 381,RN made aware
[2024-05-27 01:14] VITALS: BP 156/72; PULSE 92; RESP 16; TEMP 36.8; O2SAT 93
[2024-05-27 01:20] LABS: Glucose, Whole Blood 381 mg/dL (60-115)
== END 2024-05-27 02:11 | disposition left against medical advice (07) ==
PROVIDERS: Physician Assistant Medical; Emergency Provider Student in an Organized Health Care Education/Training Program; PCP Family Medicine
DX: N17.9 Acute kidney failure, unspecified (principal); E13.10 Other specified diabetes mellitus with ketoacidosis without coma; R11.2 Nausea with vomiting, unspecified; R10.13 Epigastric pain; Z79.899 Other long term (current) drug therapy; Z53.29 Procedure and treatment not carried out because of patient's decision for other reasons; Z03.818 Encounter for observation for suspected exposure to other biological agents ruled out
CPT/HCPCS: 0241U; 36415; 76705; 80048; 80053; 81001; 82010; 82248; 82803; 82947; 83605; 83690; 83735; 84702; 85025; 93005; 96361; 96365; 96366; 96375; 99285; J2270; J2405; J3480

== ENCOUNTER → 2024-05-26 18:02 | Outpatient (BNV) | payer OTHER, SELFPAY | PROVIDERS: Emergency Provider Student in an Organized Health Care Education/Training Program; PCP Family Medicine; Visit Provider Internal Medicine | DX: R00.0 Tachycardia, unspecified (principal); R94.31 Abnormal electrocardiogram [ECG] [EKG] | CPT/HCPCS: 93010 ==

== ENCOUNTER 2024-05-27 16:41 | Inpatient (IN) | payer OTHER, SELFPAY ==
[2024-05-27 16:50] VITALS: BP 148/78; PULSE 101; O2SAT 95
[2024-05-27 16:56] VITALS: BP 175/75; PULSE 86; RESP 20; TEMP 36.9; O2SAT 94; BMI 32.6
[2024-05-27 16:57] LABS: Glucose, Whole Blood 302 mg/dL (60-115)
[2024-05-27 17:16] LABS: MANUAL DIFF FLAG NO
[2024-05-27 17:34] LABS: Alanine Aminotransferase 59 U/L (0-31); Albumin Level 3.8 g/dL (3.5-5.0); Alkaline Phosphatase 152 U/L (39-117); Anion Gap 12 (12-20); Aspartate Amino Transferase 115 U/L (5-31); Basophils Percent Auto 0.1 % (0-2); Bilirubin Total 0.7 mg/dL (0.0-1.0); Blood Urea Nitrogen 25 mg/dL (9-16); Calcium 8.9 mg/dL (8.4-10.2); Carbon Dioxide 27 mmol/L (22-29); Chloride 96 mmol/L (96-108); Creatinine Clr Calc Pharmacy 77.9; Eosinophils Percent Auto 0.1 % (0-4); Estimated Glomerular Filt Rate > 60; Glucose Random 300 mg/dL (60-115); Hematocrit 40.3 % (37.0-47.0); Hemoglobin 14.2 g/dl (12.0-16.0); Imm Gran Abs Auto 0.11 X10*3/uL (0.00-0.03); Imm Gran Pct Auto 0.6 % (0.0-0.4); Lymphocytes Percent Auto 11.3 % (20-40); Mean Corpuscular HGB Conc 35.2 g/dl (31.0-35.0); Mean Corpuscular Hemoglobin 30.5 pg (27.0-33.0); Mean Corpuscular Volume 86.7 fL (80.0-98.0); Mean Platelet Volume 10.4 fL (9.4-12.3); Monocytes Absolute Auto 0.8 X10*3/uL (0.1-1.2); Monocytes Percent Auto 4.3 % (2-11); Neutrophils Absolute Auto 14.6 x10*3/uL (2.0-8.3); Neutrophils Percent Auto 83.6 % (45-73); Platelet Count 266 X10*3/uL (160-400); Potassium 3.9 mmol/L (3.3-5.1); Red Blood Count 4.65 X10*6/uL (4.20-5.50); Red Cell Distribution Width 14.4 % (11.0-16.0); Sodium 131 mmol/L (135-145); White Blood Count 17.5 X10*3/uL (4.8-10.8)
[2024-05-27 18:50] LABS: HCG Quantitative < 2 mIU/mL
[2024-05-27 18:51] LABS: Beta-Hydroxybutyrate 0.22 mmol/L (0.02-0.27)
[2024-05-27] MEDS: 0.9 % Sodium Chloride 2,000 ML 999 ML IVCONT (18:52)
[2024-05-27] MEDS: Insulin Regular, Human 100 UNIT/ML 10 ML VIAL 10 UNIT IVPUSH (18:52)
[2024-05-27] MEDS: ondansetron HCL 4 MG/2 ML VIAL IVPUSH (18:54)
--- NOTE | 2024-05-27 19:09 | ED.GENADULT ---
HPI - General Adult General Chief complaint: General Medical Stated complaint: type 1 diabetes, N/V POC 423 Time Seen by Provider: 05/27/24 17:05 Source: patient and EMS Mode of arrival: EMS Limitations: no limitations History of Present Illness ED Provider: Dr. Gris Anne HPI narrative: Patient comes to the emergency room complaining of nausea vomiting, loss of appetite. The patient states that she left AMA earlier this morning. Patient thought that she will be doing well but instead her vomiting and abdominal pain got worse. Patient states that there something going on with her insulin pump. Patient states that she felt her insulins yesterday, patient states that it is not delivering the correct amount? Patient states that this time she is willing to stay Related Data Home Medications ?Medication ?Instructions ?Recorded ?Confirmed subcutaneous insulin pump 10/04/20 10/24/23 albuterol sulfate 90 mcg/actuation 2 puff inhalation Q6H PRN wheezing 10/23/23 10/24/23 aerosol inhaler (Ventolin HFA) beclomethasone dipropionate 80 1 inh inhalation BID 10/23/23 10/24/23 mcg/actuation HFA breath activated aerosol (Qvar RediHaler) blood-glucose sensor (Dexcom G6 10/23/23 10/24/23 Sensor device) blood-glucose transmitter (Dexcom 10/23/23 10/24/23 G6 Transmitter device) docusate sodium 100 mg capsule 100 mg PO BID PRN constipation 10/23/23 10/24/23 glucagon 1 mg solution for 1 mg subcut NEEDED hypoglycemia 10/23/23 10/24/23 injection (Glucagon Emergency Kit) insulin lispro 100 unit/mL 0 - 80 unit subcut DAILY 10/23/23 10/24/23 subcutaneous solution ipratropium 0.5 mg-albuterol 3 mg 3 ml inhalation QID PRN wheezing 10/23/23 10/24/23 (2.5 mg base)/3 mL nebulization soln Previous Rx's ?Medication ?Instructions ?Recorded sumatriptan succinate 50 mg tablet 50 mg PO DAILY MRX1 PRN migraine 10/29/23 #0 tabs trazodone 50 mg tablet 50 mg PO BEDTIME PRN Insomnia 30 10/29/23 days #30 tabs bisacodyl 10 mg rectal suppository 10 mg [place] DAILY PRN constipation 12/03/23 (Dulcolax (bisacodyl)) #20 ea psyllium husk 3.4 gram/5.4 gram 1 tbsp PO DAILY 30 days #660 grams 12/03/23 oral powder (Metamucil) sennosides 8.6 mg capsule (senna) 8.6 mg PO DAILY PRN constipation 12/03/23 #30 caps Allergies Allergy/AdvReac Type Severity Reaction Status Date / Time ibuprofen [IBUPROFEN] Allergy Severe LIGHTHEADED;FEELS Verified 05/27/24 16:56 LIKE CHEST IS CLOSING IN;CLAUSTROPHOBIC Seasonal Allergies Allergy Severe Sneezing Verified 05/27/24 16:56 Review of Systems Review of Systems: Constitutional : No Weight loss, No Fever, No Chills, No Night Sweats, No Fatigue, No Malaise ENT/Mouth : No Hearing loss, No Ear Pain, No Nasal Congestion, No Sinus Pain, No Hoarseness, No sore throat, No Rhinorrhea, No Swallowing Difficulty Eyes: No Eye Pain, No Swelling, No Redness, No Foreign Body, No Discharge, No Vision Changes Cardiovascular : No Chest Pain, No SOB, No Dyspnea on Exertion, No Orthopnea, No Edema, No Palpitations Respiratory : No Cough, No Sputum, No Wheezing, No Smoke Exposure, No Dyspnea Gastrointestinal : Complaining of nausea vomiting and diarrhea, complaining of abdominal pain. Genitourinary : no irregular bleeding, No Dysuria, No Urinary Frequency, No Hematuria, No Urinary Incontinence, No Urgency, No Flank Pain, No Urinary Flow Changes, No Hesitancy Musculoskeletal : No joint pain, No Myalgias, No Joint Swelling Skin : No Skin Lesions, No rash Neuro : No Weakness, No Numbness, No Paresthesias, No Loss of Consciousness, No Dizziness, No Headache Psych : No Anxiety/Panic, No Depression, No SI/HI/AH/VH, No Social Issues, Heme/Lymph: No Bruising, No Bleeding,No Lymphadenopathy Endocrine : No Polyuria, No Polydipsia, No Temperature Intolerance PMFSH Past Medical History Medical History Shoulder pain with history of repair of rotator cuff PTSD (post-traumatic stress disorder) MDD (major depressive disorder), recurrent episode, moderate Opioid use disorder Hypoxia Moderate obesity Hypercapnic respiratory failure, chronic Asthma Drug overdose Diabetes Transaminitis Pneumonia Pneumonia Post-tubal ligation syndrome Drug abuse in remission Asthma Diabetic acetonemia Surgical History H/O tubal ligation H/O colonoscopy Family History Family History Mother Colon cancer Lung cancer Maternal Aunt Lung cancer Social History Social History Household Members: Significant Other and Other Household Members Other:: step children Housing: House Do you presently have visiting nurse or other home services: No Alcohol intake: never Comment: pt does call with help w IV pole when OOB to bathroom Patient Tobacco Use Status: Current everyday Tobacco user Tobacco use type: Cigarette Cigarette Packs Per Day: 1 Cigarettes Per Day: 20 Years Smoked: 20 e-Cigarette/Vaping Use: Never Used Second Hand Smoke Exposure: Yes Substance Use Type: Former Substance User and Marijuana Advance Directives: No Advance Directives Information Provided: Yes Advance Directives Date on File: 06/07/21 Do you have a plan to hurt others: No Plan service: No Current occupational status: unemployed Sexual orientation: Straight/Heterosexual Physical Exam ED Vital Signs: Vital Signs - 24 hr 05/27/24 16:56 Temperature 98.4 F Pulse Rate 86 Respiratory Rate 20 Blood Pressure 175/75 H Pulse Oximetry 94 Oxygen Delivery Method Room Air BMI result Body Mass Index 32.6 Const Other: Appearance: Alert. Oriented X3. Seems uncomfortable Eyes: Pupils equal, round and reactive to light. ENT: Pharynx normal. Neck: Normal inspection. Neck supple. No lymph nodes noted. No crepitus CVS: Normal heart rate and rhythm. Pulses normal. Normal S1 and S2 Respiratory: No respiratory distress. Breath sounds normal. No Wheezing. No rales Abdomen: Has vomited a few times in the ED, Soft and nontender. No rigidity. No distention. Skin: Skin warm and dry. Normal skin color. Normal skin turgor. Extremities: No lower extremity edema. No Lacerations. No Rash Neuro: Oriented X 3. No motor deficit. No sensory deficit. Moving all extremities. No slurred speech. CN 2 through 12 grossly intact Psych: calm, cooperative, normal affect Medications Administered Generic Name Dose Route Start Last Admin Trade Name Freq PRN Reason Stop Dose Admin Sodium Chloride 2,000 mls @ 999 mls/hr 05/27/24 18:21 05/27/24 18:52 Ns IVCONT 05/27/24 20:21 999 mls/hr .Q2H1M ONE Administration Discontinued Medications Generic Name Dose Route Start Last Admin Trade Name Jose Angel PRN Reason Stop Dose Admin Insulin Human Regular 10 unit 05/27/24 18:21 05/27/24 18:52 Insulin Regular, Human 100 Unit/Ml 10 Ml Vial IVPUSH 05/27/24 18:22 10 unit ONCE ONE Administration Ondansetron HCl 4 mg 05/27/24 18:21 05/27/24 18:54 Ondansetron Hcl 4 Mg/2 Ml Vial IVPUSH 05/27/24 18:22 4 mg ONCE ONE Administration Medical Decision Making Medical Decision Making [facility] Narrative: My interpretation of labs: Patient's white blood cell count is elevated, 17.5 secondary to reactive leukocytosis. Chemistry shows a sodium of 131, normal for a glucose of 300. Patient's electrolytes within normal limits. Anion gap is closed, beta hydroxybutyrate negative -ultrasound of the abdomen which was done yesterday showed no abnormalities, especially of the right upper quadrant -patient is unable to tolerate p.o.. Yesterday, patient left AMA because she did not have a private room upstairs. I discussed with the patient that it is unlikely that she may have a room tonight either. However, patient states that she is willing to stay because she does not feel well and is unable to eat/drink anything Differential Diagnosis Differential Diagnoses: The differential diagnosis associated with the presentation includes (DKA, hyperglycemia) Admission/Observation Consideration of admission/observation: Escalation of care including admission/observation considered Consult Healthcare Provider Management of the patient was discussed with: Hospitalist Lab Data [facility] Lab Attestation statement: I reviewed the patient's lab results. 05/27/24 17:11 05/27/24 17:11 Labs: Lab Results 05/27/24 05/27/24 Range/Units 16:52 17:11 WBC 17.5 H (4.8-10.8) X10*3/uL RBC 4.65 (4.20-5.50) X10*6/uL Hgb 14.2 (12.0-16.0) g/dl Hct 40.3 (37.0-47.0) % MCV 86.7 (80.0-98.0) fL MCH 30.5 (27.0-33.0) pg MCHC 35.2 H (31.0-35.0) g/dl RDW 14.4 (11.0-16.0) % Plt Count 266 (160-400) X10*3/uL MPV 10.4 (9.4-12.3) fL Immature Gran % (Auto) 0.6 H (0.0-0.4) % Neut % (Auto) 83.6 H (45-73) % Lymph % (Auto) 11.3 L (20-40) % [place] % (Auto) 4.3 (2-11) % Eos % (Auto) 0.1 (0-4) % Baso % (Auto) 0.1 (0-2) % Lymph # (Auto) 2.0 (1.2-4.9) X10*3/uL [place] # (Auto) 0.8 (0.1-1.2) X10*3/uL Eos # (Auto) 0.0 (0.0-0.4) X10*3/uL Baso # (Auto) 0.0 (0.0-0.2) X10*3/uL Abs Immat Gran (auto) 0.11 H (0.00-0.03) X10*3/uL Absolute Neuts (auto) 14.6 H (2.0-8.3) x10*3/uL Absolute Nucleated RBC 0.000 (0.0-0.012) X10*3/uL Nucleated RBC % (auto) 0.0 (0.0-0.2) /100WBC Sodium 131 L (135-145) mmol/L Potassium 3.9 (3.3-5.1) mmol/L Chloride 96 (96-108) mmol/L Carbon Dioxide 27 (22-29) mmol/L Anion Gap 12 (12-20) BUN 25 H (9-16) mg/dL Creatinine 0.76 (0.5-1.4) mg/dL Estim Creat Clear Calc 77.9 Estimated GFR > 60 POC Glucose 302 H (60-115) mg/dL Random Glucose 300 H (60-115) mg/dL Calcium 8.9 (8.4-10.2) mg/dL Total Bilirubin 0.7 (0.0-1.0) mg/dL AST 115 H (5-31) U/L ALT 59 H (0-31) U/L Alkaline Phosphatase 152 H (39-117) U/L Total Protein 7.0 (6.5-8.0) g/dL Albumin 3.8 (3.5-5.0) g/dL Beta-Hydroxybutyrate 0.22 (0.02-0.27) mmol/L Beta HCG, Quant < 2 mIU/mL Critical Care Time Critical Care Time Critical Care Time: Yes Total Critical Care Time: 60 Attestation: I have personally provided critical care time. Time includes review of lab data, radiology results, discussion with consultants, and monitoring for potential decompensation. Intervention performed as documented. Discharge Plan Discharge Clinical Impression: Nausea & vomiting, Acute hyperglycemia Patient Disposition: Admitted As Inpatient Print Language: Mongolian
[2024-05-27 20:18] LABS: Glucose, Whole Blood 32 mg/dL (60-115)
[2024-05-27] MEDS: Dextrose 10 % 250 ML 750 ML IV (20:25)
[2024-05-27 20:34] LABS: Glucose, Whole Blood 73 mg/dL (60-115)
--- NOTE | 2024-05-27 20:41 | PC.NURSE ---
pT HYPOGLYCEMIC AT 34. Greenbrier juice given and D10% hung. Inpatient provider agreeable and at bedside at time of administration
--- NOTE | 2024-05-27 20:53 | PHA.MEDREC ---
Pharmacy Consult ? Medication Reconciliation Pharmacy has completed the medication reconciliation.Med rec complete, spoke with patient and compared with pharmacy claim history. Patient also stated she takes lorazepam at night in addition to clonazepam, I did not include because there is no claim history to support this and therapeutic duplication.
--- NOTE | 2024-05-27 20:53 | PM.IMHP ---
History of Present Illness Date of Service: 05/27/24 Attending physician on admission: Blanca Cooper Chief Complaint: nausea, vomiting, ?insulin pump malfunction Patient is a 49-year-old female with a past medical history significant for moderate persistent asthma, type 1 diabetes diagnosed at 17 years old, migraines, depression, and previous substance use, who presented again to the ED with worsening abd pain, nausea and vomiting. she presented to the ED last night with severe nausea, vomiting, and elevated glucose and was treated with an insulin drip. she left AMA as she was feeling better and did not want to be admitted due to lack of a bed upstairs at the time. she reports that her vomiting is always liquid, has not eaten in days, no hematemesis or coffee ground emesis. she has baseline contsitpation. she is not hydrating well and has not eaten in 5 days. she reports generalized cramping abd pain, worse in the LUQ. no marijuana use or etoh. she uses an insulin pump and does not know her basal rate and feels that the pump has been malfunctioning. she also complains of a frontal headache and denies cough, SOB, or chest pain. reports some wheezing and states she uses her albuteral 4-5x/day on average. Review of Systems Constitutional: Constitutional: Denies chills, Denies fatigue, Denies fever(s) and Reports headache(s) Eyes: Eyes: Reports blurry vision ENT: Reports headache(s), Denies nasal congestion, Denies nasal discharge and Denies sore throat Cardiovascular: Cardiovascular: Denies chest pain, Denies rapid heart rate, Denies lightheadedness and Denies dyspnea Respiratory: Respiratory: Denies chest congestion, Denies cough, Denies dyspnea and Reports wheezing Gastrointestinal: Gastrointestinal: Denies melena, Denies coffee ground emesis, Reports constipation, Denies diarrhea, Reports nausea, Reports vomiting and Denies hematemesis Genitourinary: Genitourinary: Denies dysuria and Denies urinary urgency Comments: decreased urine output Musculoskeletal: Musculoskeletal: Denies numbness and Denies tingling Integumentary/Breasts: Skin/Breast: Denies rash Neurologic: Denies confusion, Reports headache(s), Denies numbness and Denies tingling Psychiatric: Psychiatric: Reports anxiety, Denies confusion and Reports depression Endocrine: Endocrine: Denies fatigue Allergic/Immunologic: Allergic/Immunologic: Reports wheezing [facility] Medical History Shoulder pain with history of repair of rotator cuff PTSD (post-traumatic stress disorder) MDD (major depressive disorder), recurrent episode, moderate Opioid use disorder Hypoxia Moderate obesity Hypercapnic respiratory failure, chronic Asthma Drug overdose Diabetes Transaminitis Pneumonia Pneumonia Post-tubal ligation syndrome Drug abuse in remission Asthma Diabetic acetonemia Functional capacity: independent ambulation Family History Mother Colon cancer Lung cancer Maternal Aunt Lung cancer Surgical History H/O tubal ligation H/O colonoscopy Social History Household Members: Significant Other and Other Household Members Other:: step children Housing: House Do you presently have visiting nurse or other home services: No Alcohol intake: never Comment: pt does call with help w IV pole when OOB to bathroom Patient Tobacco Use Status: Current everyday Tobacco user Tobacco use type: Cigarette Cigarette Packs Per Day: 1 Cigarettes Per Day: 20 Years Smoked: 20 e-Cigarette/Vaping Use: Never Used Second Hand Smoke Exposure: Yes Substance Use Type: Former Substance User and Marijuana Advance Directives: No Advance Directives Information Provided: Yes Advance Directives Date on File: 06/07/21 Do you have a plan to hurt others: No Plan service: No Current occupational status: unemployed Sexual orientation: Straight/Heterosexual Narrative: denies any illicit drug use including marijuana. smokes 1 pk/day. no etoh. Meds Allergies Allergy/AdvReac Type Severity Reaction Status Date / Time ibuprofen [IBUPROFEN] Allergy Severe LIGHTHEADED;FEELS Verified 05/27/24 16:56 LIKE CHEST IS CLOSING IN;CLAUSTROPHOBIC Seasonal Allergies Allergy Severe Sneezing Verified 05/27/24 16:56 Active Medications: Current Medications Acetaminophen (Acetaminophen 325 Mg Tablet) 650 mg PO Q6H PRN PRN Reason: Pain, Mild (Pain Scale 1-3), fever or headache Calcium Carbonate (Calcium Carbonate 750 Mg Tab.Chew) 750 mg PO Q4H PRN PRN Reason: Heartburn Clonazepam (Clonazepam 1 Mg Tablet) 1 mg PO DAILY PRN PRN Reason: Anxiety Enoxaparin Sodium (Enoxaparin Sodium 40 Mg/0.4 Ml Syringe) 40 mg SUBCUT Q24H [facility] Glucose (Glucose Gel 15 Gm Gel..Gram.) 15 gm PO Q15M PRN; Protocol PRN Reason: per Hypoglycemia Standing Ord. Dextrose (D10) 250 mls @ 750 mls/hr IV Q15M PRN; Protocol PRN Reason: per Hypoglycemia Standing Ord. Last Admin: 05/27/24 20:25 Dose: 750 mls/hr Dextrose/Lactated Ringer's (D5lr) 1,000 mls @ 100 mls/hr IVCONT .Q10H [facility] Insulin Human Lispro (Insulin Lispro 100 Unit/Ml 3 Ml Vial) 0 unit SUBCUT QIDACHS [facility]; Protocol Last Admin: 05/27/24 20:45 Dose: Not Given Magnesium Hydroxide (Milk Of Magnesia 30 Ml Oral.Susp) 30 ml PO DAILY PRN PRN Reason: Constipation Melatonin (Melatonin 3 Mg Tablet) 6 mg PO BEDTIME PRN PRN Reason: Insomnia Metoclopramide HCl (Metoclopramide Hcl 10 Mg/2 Ml Vial) 10 mg IVPUSH Q8H [facility] Nicotine (Nicotine 21 Mg Patch.Td24) 21 mg TRANSDERMA DAILY [facility] Oxycodone HCl (Oxycodone Hcl Immed Release 5 Mg Tablet) 5 mg PO Q6H PRN PRN Reason: Pain, Severe (Pain Scale 7-10) Prochlorperazine Edisylate (Prochlorperazine Edisylate 10 Mg/2 Ml Vial) 5 mg IVPUSH Q4H PRN PRN Reason: Nausea and Vomiting Sodium Chloride (0.9 % Sodium Chloride Flush 3 Ml Syringe) 3 ml IVFLUSH QSHIFT [facility] Trazodone HCl (Trazodone Hcl 100 Mg Tablet) 100 mg PO BEDTIME [facility] Home Medications ?Medication ?Instructions ?Recorded ?Confirmed ?Last Taken ?Type subcutaneous insulin pump (Tandem 10/04/20 05/27/24 Unknown History Mobi System) albuterol sulfate 90 mcg/actuation 2 puff inhalation Q6H PRN wheezing 10/23/23 05/27/24 Unknown History aerosol inhaler (Ventolin HFA) blood-glucose sensor (Dexcom G6 10/23/23 10/24/23 Unknown History Sensor device) blood-glucose transmitter (Dexcom 10/23/23 10/24/23 Unknown History G6 Transmitter device) docusate sodium 100 mg capsule 100 mg PO BID PRN constipation 10/23/23 05/27/24 Unknown History glucagon 1 mg solution for 1 mg subcut NEEDED PRN 10/23/23 05/27/24 Unknown History injection (Glucagon Emergency Kit) hypoglycemia insulin lispro 100 unit/mL 0 - 80 unit subcut DAILY 10/23/23 05/27/24 Unknown History subcutaneous solution ipratropium 0.5 mg-albuterol 3 mg 3 ml inhalation QID PRN wheezing 10/23/23 05/27/24 Unknown History (2.5 mg base)/3 mL nebulization soln cetirizine 10 mg tablet 10 mg PO DAILY 05/27/24 05/27/24 Unknown History clonazepam 1 mg tablet 1 mg PO BEDTIME PRN Sleep 05/27/24 05/27/24 Unknown History duloxetine 20 mg capsule,delayed 40 mg PO DAILY 05/27/24 05/27/24 Unknown History release fluticasone 500 mcg-salmeterol 50 1 ea inhalation BID 05/27/24 05/27/24 Unknown History mcg/dose blistr powdr for inhalation (Advair Diskus) fluticasone propionate 50 2 spray intranasal DAILY 05/27/24 05/27/24 Unknown History mcg/actuation nasal spray,suspension lovastatin 20 mg tablet 20 mg PO DAILY 05/27/24 05/27/24 Unknown History montelukast 10 mg tablet 10 mg PO DAILY 05/27/24 05/27/24 Unknown History mupirocin 2 % topical ointment 1 appl topical TID 05/27/24 05/27/24 Unknown History naltrexone 50 mg tablet 50 mg PO DAILY 05/27/24 05/27/24 Unknown History nicotine 21 mg/24 hr daily 1 patch transdermal DAILY 05/27/24 05/27/24 Unknown History transdermal patch trazodone 100 mg tablet 100 mg PO BEDTIME PRN Sleep 05/27/24 05/27/24 Unknown History valsartan 80 mg tablet 80 mg PO DAILY 05/27/24 05/27/24 Unknown History Physical Exam Vital Signs and Narrative: Vital Signs: Last Vital Signs Temp 98.4 F 05/27/24 16:56 Pulse 86 05/27/24 16:56 Resp 20 05/27/24 16:56 BP 175/75 H 05/27/24 16:56 Pulse Ox 94 05/27/24 16:56 O2 Del Method Room Air 05/27/24 16:56 BMI result Body Mass Index 32.6 General: AOx3, no acute distress Resp: CTA bilaterally, no wheezing CVS: RRR, +murmur GI: +BS, NT with distracted exam however without distraction c/o tenderness LUQ Skin: Warm, dry Neuro: Motor grossly intact bilaterally Extremities: No edema Psych: Appropriate affect Const: General: No confusion Orientation/consciousness: No confusion Neuro: General: No confusion Results Labs 05/27/24 17:11 05/27/24 17:11 Labs: Laboratory Results - last 24 hr 05/27/24 05/27/24 05/27/24 16:52 17:11 20:14 MCV 86.7 MCH 30.5 MCHC 35.2 H RDW 14.4 Plt Count 266 MPV 10.4 Immature Gran % (Auto) 0.6 H Neut % (Auto) 83.6 H Lymph % (Auto) 11.3 L [place] % (Auto) 4.3 Eos % (Auto) 0.1 Baso % (Auto) 0.1 Lymph # (Auto) 2.0 [place] # (Auto) 0.8 Eos # (Auto) 0.0 Baso # (Auto) 0.0 Abs Immat Gran (auto) 0.11 H Absolute Neuts (auto) 14.6 H Absolute Nucleated RBC 0.000 Nucleated RBC % (auto) 0.0 Anion Gap 12 Estim Creat Clear Calc 77.9 Estimated GFR > 60 POC Glucose 302 H 32 L* Random Glucose 300 H Calcium 8.9 Total Bilirubin 0.7 AST 115 H ALT 59 H Alkaline Phosphatase 152 H Total Protein 7.0 Albumin 3.8 Beta-Hydroxybutyrate 0.22 Beta HCG, Quant < 2 05/27/24 20:31 MCV MCH MCHC RDW Plt Count MPV Immature Gran % (Auto) Neut % (Auto) Lymph % (Auto) [place] % (Auto) Eos % (Auto) Baso % (Auto) Lymph # (Auto) [place] # (Auto) Eos # (Auto) Baso # (Auto) Abs Immat Gran (auto) Absolute Neuts (auto) Absolute Nucleated RBC Nucleated RBC % (auto) Anion Gap Estim Creat Clear Calc Estimated GFR POC Glucose 73 Random Glucose Calcium Total Bilirubin AST ALT Alkaline Phosphatase Total Protein Albumin Beta-Hydroxybutyrate Beta HCG, Quant Assessment and Plan (1) Nausea & vomiting: Status: Acute (2) Uncontrolled diabetes mellitus with hyperglycemia: Status: Acute (3) Tobacco abuse: Status: Acute (4) Obesity (BMI 30.0-34.9): Status: Chronic Plan Patient is a 49-year-old female with a past medical history significant for moderate persistent asthma, type 1 diabetes diagnosed at 17 years old, migraines, depression, and previous substance use, who presented again to the ED with worsening abd pain, nausea and vomiting. she presented to the ED last night with severe nausea, vomiting, and elevated glucose and was treated with an insulin drip. she left AMA as she was feeling better and did not want to be admitted due to lack of a bed upstairs at the time. Nausea and vomiting likely related to uncontrolled diabetes with hyperglycemia - glucose 300 in ED, given 10U insulin with pump still in place - pH normal, gap closed from yesterday, negative beta hydroxybutyrate - reactive leukocytosis - abd US yesterday negative for billiary process - ?insulin pump issue, pt removed pump around 7PM today - episode of hypoglycemia in ED, given D10 - will give lantus 10U QHS - sliding scale insulin - check etoh level, urine tox and UA - NPO - reglan Q8H and PRN compazine - POC Q2H - IV fluids: D5LR - monitor CMP Moderate persistent asthma without acute exacerbation - continue home inhalers, montelukast and cetirizine Migraines - continue sumatriptan as needed Depression - continue duloxetine, Klonopin and trazodone Tobacco abuse - smoking cessation discussed - nicotine patch Obesity - weight loss encouraged Full code VTE prophylaxis: Lovenox Patient with nausea and vomiting likely related to uncontrolled diabetes with hyperglycemia, left AMA yesterday although inpatient stay was recommended for better blood glucose control and further workup for her abdominal symptoms, returned today due to worsening symptoms, will require admission for at least 2 midnights stay. Quality Stroke Does the patient have a stroke diagnosis?: No VTE Prior VTE?: No VTE Risk Level:: Medical - moderate - high VTE Device Contraindication: Treatment Not Indicated VTE Drug Contraindication: N/A - Med Ordered
[2024-05-27] MEDS: clonazePAM 1 MG TABLET PO (20:57)
[2024-05-27] MEDS: traZODone HCL 100 MG TABLET PO (20:57)
[2024-05-27 21:02] LABS: Appearance Urine Cloudy; Color Urine Yellow; Glucose Urine UA 500 mg/dL (Negative); Leukocyte Esterase Urine Small (1+) (Negative); Nitrite Urine Negative (Negative); PH 6.5 (5.0-9.0); Specific Gravity - Urine 1.025 (1.005-1.025); UMIC TRIGGER UACC YES; Urine Blood Negative (Negative); Urine Ketones 15 mg/dL (Negative); Urine Protein 300 (3+) mg/dL (Neg-Trace)
[2024-05-27 21:09] LABS: Amphetamine Screen Urine Not Detected (Not Detect); Barbiturates, Urine Not Detected (Not Detect); Benzodiazepines Screen Urine Not Detected (Not Detect); Buprenorphine Scr Not Detected (Not Detect); Cannabinoid Screen Urine Not Detected (Not Detect); Cocaine Screen Urine Not Detected (Not Detect); Fentanyl, urine Not Detected (Not Detect); Methadone Screen, Urine Not Detected (Not Detect); Opiate Screen Urine POSITIVE (Not Detect); Oxycodone Screen Urine Not Detected (Not Detect); Phencyclidine Screen Urine Not Detected (Not Detect)
[2024-05-27 21:15] LABS: Bacteria Urine 3+ (None Seen); RBC Urine 0-2 /HPF (0-2); Squamous Epithelial Cell Urine >20 /HPF (0-2); UACC Culture Trigger YES
[2024-05-27 21:22] LABS: Ethanol < 10 mg/dL
[2024-05-27] MEDS: Metoclopramide HCl 10 MG/2 ML VIAL IVPUSH (21:49)
[2024-05-27] MEDS: Dextrose 5 % and Lactated Ring 1,000 ML 100 ML IVCONT (22:35)
[2024-05-27] MEDS: Enoxaparin Sodium 40 MG/0.4 ML SYRINGE SUBCUT (22:36)
[2024-05-27 23:46] LABS: Glucose, Whole Blood 138 mg/dL (60-115)
[2024-05-28] VITALS (7 sets, daily range): BP systolic 117–178; BP diastolic 63–84; PULSE 58–95; RESP 12–18; TEMP 36.4–37.4; O2SAT 92–95
[2024-05-28] MEDS: Flu Vacc TS2024-25(6mos up)/PF 0.5 ML SYRINGE IM (00:45)
[2024-05-28] MEDS: Insulin Glargine,Hum.rec.anlog 100 UNIT/ML 10 ML VIAL 10 UNIT SUBCUT (00:45)
[2024-05-28] MEDS: Prochlorperazine Edisylate 10 MG/2 ML VIAL 5 MG IVPUSH ×2 (00:53→08:27)
[2024-05-28 02:34] LABS: Glucose, Whole Blood 191 mg/dL (60-115)
[2024-05-28 04:16] LABS: Glucose, Whole Blood 234 mg/dL (60-115)
[2024-05-28] MEDS: Insulin Lispro 100 UNIT/ML 3 ML VIAL SUBCUT ×6 (04:28→20:29)
[2024-05-28] MEDS: Metoclopramide HCl 10 MG/2 ML VIAL IVPUSH ×3 (04:28→20:30)
[2024-05-28 06:05] LABS: Glucose, Whole Blood 155 mg/dL (60-115)
[2024-05-28 07:31] LABS: Estimated Average Glucose 220 mg/dL; Hemoglobin A1C 287.0961 umol/L; Hemoglobin A1c % 9.3 % (<6.0); Total Hemoglobin (HGBA1C) 3673.2827 umol/L
[2024-05-28 07:54] LABS: Glucose, Whole Blood 198 mg/dL (60-115)
[2024-05-28] MEDS: Dextrose 5 % and Lactated Ring 1,000 ML 100 ML IVCONT (08:27)
[2024-05-28] MEDS: cefTRIAXone sodium 1 GM VIAL IVPUSH (08:27)
[2024-05-28] MEDS: Nicotine 21 MG PATCH.TD24 TRANSDERMA (09:39)
[2024-05-28] MEDS: Valsartan 80 MG TABLET PO (09:40)
[2024-05-28] MEDS: Pravastatin Sodium 20 MG TABLET PO (09:40)
[2024-05-28] MEDS: Montelukast Sodium 10 MG TABLET PO (09:40)
[2024-05-28] MEDS: Naltrexone HCl 50 MG TABLET PO (09:40)
[2024-05-28] MEDS: DULoxetine HCl 20 MG CAPSULE.DR 40 MG PO (09:40)
[2024-05-28] MEDS: Loratadine 10 MG TABLET PO (09:40)
--- NOTE | 2024-05-28 09:42 | MHC.CM.PN ---
CM MET WITH PT AT BEDSIDE. PT LIVES WITH FAMILY. INDEPENDENT WITH MOBILITY. NO SERVICES. PT GETS DIABETIC SUPPLIES VIA [facility], INSULIN PUMP MANAGED BY CLINIC AT [address] [place] [address] CHRISTENSEN. +HCP AT HOME, PT THINKS MAY BE ON FILE AT [facility]. COPY REQUESTED. DP: HOME, NO SERVICES IS THE GOAL. PT WILL NEED ASSIST WITH A RIDE HOME ([facility] VS [facility]) CM WILL CONTINUE TO FOLLOW FOR ANY CHANGE TO DC PLAN/NEEDS
[2024-05-28 09:43] LABS: MANUAL DIFF FLAG NO
[2024-05-28 09:45] LABS: Basophils Percent Auto 0.1 % (0-2); Eosinophils Percent Auto 0.1 % (0-4); Hematocrit 39.8 % (37.0-47.0); Hemoglobin 13.7 g/dl (12.0-16.0); Imm Gran Abs Auto 0.09 X10*3/uL (0.00-0.03); Imm Gran Pct Auto 0.5 % (0.0-0.4); Lymphocytes Absolute Auto 3.2 X10*3/uL (1.2-4.9); Lymphocytes Percent Auto 19.3 % (20-40); Mean Corpuscular HGB Conc 34.4 g/dl (31.0-35.0); Mean Corpuscular Hemoglobin 30.4 pg (27.0-33.0); Mean Corpuscular Volume 88.4 fL (80.0-98.0); Mean Platelet Volume 11.3 fL (9.4-12.3); Monocytes Absolute Auto 0.9 X10*3/uL (0.1-1.2); Monocytes Percent Auto 5.1 % (2-11); Neutrophils Absolute Auto 12.4 x10*3/uL (2.0-8.3); Neutrophils Percent Auto 74.9 % (45-73); Platelet Count 285 X10*3/uL (160-400); Red Cell Distribution Width 14.4 % (11.0-16.0); White Blood Count 16.6 X10*3/uL (4.8-10.8)
[2024-05-28 10:01] LABS: Alanine Aminotransferase 53 U/L (0-31); Albumin Level 3.3 g/dL (3.5-5.0); Alkaline Phosphatase 130 U/L (39-117); Anion Gap 16 (12-20); Aspartate Amino Transferase 89 U/L (5-31); Bilirubin Total 0.5 mg/dL (0.0-1.0); Blood Urea Nitrogen 13 mg/dL (9-16); Calcium 8.2 mg/dL (8.4-10.2); Carbon Dioxide 26 mmol/L (22-29); Chloride 100 mmol/L (96-108); Creatinine Clr Calc Pharmacy 87.1; Estimated Glomerular Filt Rate > 60; Glucose Random 235 mg/dL (60-115); Sodium 138 mmol/L (135-145); Total Protein 6.3 g/dL (6.5-8.0)
[2024-05-28 11:39] LABS: Glucose, Whole Blood 258 mg/dL (60-115)
[2024-05-28] MEDS: SUMAtriptan succinate 50 MG TABLET PO (13:46)
--- NOTE | 2024-05-28 15:41 | HO.PM.IMPN ---
Subjective Subjective Date of Service: 05/28/24 Interval History: dm Review of Systems feelin somewhat improving denies any chets pain or sob Physical Exam Vital Signs: Vital Signs: Last Vital Signs Temp 97.5 F 05/28/24 15:28 Pulse 81 05/28/24 15:28 Resp 12 05/28/24 15:28 BP 136/68 05/28/24 15:28 Pulse Ox 92 05/28/24 15:28 O2 Del Method Room Air 05/28/24 12:00 BMI result Body Mass Index 32.6 Appearance: Alert.? Oriented X3.? cvs: rrr, [id number] , no murmur res: clear to auscultation ,no rhonchii or wheezing abd: no rebound or guarding ,nt, bs present. Gu: llq pain -improving ext pulses present , no cyanosis. neuro: axo3 , nonfocal. Objective Data Active Medications Acetaminophen (Acetaminophen 325 Mg Tablet) 650 mg PO Q6H PRN PRN Reason: Pain, Mild (Pain Scale 1-3), fever or headache Albuterol Sulfate (Albuterol Sulfate 90 Mcg 8 Gm Inhaler) 2 puff INHALE Q6H PRN PRN Reason: wheezing Calcium Carbonate (Calcium Carbonate 750 Mg Tab.Chew) 750 mg PO Q4H PRN PRN Reason: Heartburn Ceftriaxone Sodium (Ceftriaxone Sodium 1 Gm Vial) 1 gm IVPUSH Q24H [facility] [place] Last Admin: 05/28/24 08:27 Dose: 1 gm Documented By: BROClarence Clonazepam (Clonazepam 1 Mg Tablet) 1 mg PO BEDTIME PRN PRN Reason: Insomnia Docusate Sodium (Docusate Sodium 100 Mg Capsule) 100 mg PO BID PRN PRN Reason: constipation Duloxetine HCl (Duloxetine Hcl 20 Mg Capsule.Dr) 40 mg PO DAILY [facility] [place] Last Admin: 05/28/24 09:40 Dose: 40 mg Documented By: BROB Enoxaparin Sodium (Enoxaparin Sodium 40 Mg/0.4 Ml Syringe) 40 mg SUBCUT Q24H [facility] [place] Last Admin: 05/27/24 22:36 Dose: 40 mg Documented By: N-MURPE Fluticasone Propionate (Fluticasone Propionate Nasal 16 Gm [place]) 2 spray NOSTRIL-B DAILY [facility] [place] Last Admin: 05/28/24 11:06 Dose: Not Given Documented By: JOSE ANGEL Non-Admin Reason: medication requested Fluticasone/Vilanterol (Fluticasone/Vilanterol 200/25 Blst.W.Dev) 1 puff INHALE RDAILY [facility] [place] Last Admin: 05/28/24 09:28 Dose: Not Given Documented By: ADELE Non-Admin Reason: pharmacy called for med Glucose (Glucose Gel 15 Gm Gel..Gram.) 15 gm PO Q15M PRN; Protocol PRN Reason: per Hypoglycemia Standing Ord. Dextrose (D10) 250 mls @ 750 mls/hr IV Q15M PRN; Protocol PRN Reason: per Hypoglycemia Standing Ord. Last Infusion: 05/27/24 23:51 Dose: Infused Documented By: ALEIDA Dextrose/Lactated Ringer's (D5lr) 1,000 mls @ 100 mls/hr IVCONT .Q10H [facility] [place] Last Infusion: 05/28/24 10:56 Dose: 100 mls/hr Documented By: JOSE ANGEL Insulin Glargine (Insulin Glargine,Hum.Rec.Anlog 100 Unit/Ml 10 Ml Vial) 10 unit SUBCUT BEDTIME [facility] [place] Last Admin: 05/28/24 00:45 Dose: 10 unit Documented By: ALEIDA Insulin Human Lispro (Insulin Lispro 100 Unit/Ml 3 Ml Vial) 0 unit SUBCUT QIDACHS [facility] [place]; Protocol Last Admin: 05/28/24 13:13 Dose: 6 unit Documented By: JOSE ANGEL Loratadine (Loratadine 10 Mg Tablet) 10 mg PO DAILY [facility] [place] Last Admin: 05/28/24 09:40 Dose: 10 mg Documented By: JOSE ANGEL Magnesium Hydroxide (Milk Of Magnesia 30 Ml Oral.Susp) 30 ml PO DAILY PRN PRN Reason: Constipation Melatonin (Melatonin 3 Mg Tablet) 6 mg PO BEDTIME PRN PRN Reason: Insomnia Metoclopramide HCl (Metoclopramide Hcl 10 Mg/2 Ml Vial) 10 mg IVPUSH Q8H [facility] [place] Last Admin: 05/28/24 13:13 Dose: 10 mg Documented By: JOSE ANGEL Montelukast Sodium (Montelukast Sodium 10 Mg Tablet) 10 mg PO DAILY [facility] [place] Last Admin: 05/28/24 09:40 Dose: 10 mg Documented By: JOSE ANGEL Naltrexone HCl (Naltrexone Hcl 50 Mg Tablet) 50 mg PO DAILY [facility] [place] Last Admin: 05/28/24 09:40 Dose: 50 mg Documented By: JOSE ANGEL Nicotine (Nicotine 21 Mg Patch.Td24) 21 mg TRANSDERMA DAILY [facility] [place] Last Admin: 05/28/24 09:39 Dose: 21 mg Documented By: JOSE ANGEL Pravastatin Sodium (Pravastatin Sodium 20 Mg Tablet) 20 mg PO DAILY [facility] [place] Last Admin: 05/28/24 09:40 Dose: 20 mg Documented By: JOSE ANGEL Prochlorperazine Edisylate (Prochlorperazine Edisylate 10 Mg/2 Ml Vial) 5 mg IVPUSH Q4H PRN PRN Reason: Nausea and Vomiting Last Admin: 05/28/24 08:27 Dose: 5 mg Documented By: JOSE ANGEL Sodium Chloride (0.9 % Sodium Chloride Flush 3 Ml Syringe) 3 ml IVFLUSH QSHIFT [facility] [place] Last Admin: 05/28/24 08:34 Dose: Not Given Documented By: JOSE ANGEL Non-Admin Reason: IV Running Sumatriptan Succinate (Sumatriptan Succinate 50 Mg Tablet) 50 mg PO DAILY MRX1 PRN PRN Reason: migraine Last Admin: 05/28/24 13:46 Dose: 50 mg Documented By: JOSE ANGEL Trazodone HCl (Trazodone Hcl 100 Mg Tablet) 100 mg PO BEDTIME [facility] [place] Last Admin: 05/27/24 20:57 Dose: 100 mg Documented By: NAHED Valsartan (Valsartan 80 Mg Tablet) 80 mg PO DAILY [facility] [place]; Protocol Last Admin: 05/28/24 09:40 Dose: 80 mg Documented By: JOSE ANGEL Labs 05/28/24 08:48 05/28/24 08:48 Labs: Laboratory Results - last 24 hr 05/27/24 05/27/24 05/27/24 16:52 17:11 20:14 MCV 86.7 MCH 30.5 MCHC 35.2 H RDW 14.4 Plt Count 266 MPV 10.4 Immature Gran % (Auto) 0.6 H Neut % (Auto) 83.6 H Lymph % (Auto) 11.[address] % (Auto) 4.3 Eos % (Auto) 0.1 Baso % (Auto) 0.1 Lymph # (Auto) 2.0 [place] # (Auto) 0.8 Eos # (Auto) 0.0 Baso # (Auto) 0.0 Abs Immat Gran (auto) 0.11 H Absolute Neuts (auto) 14.6 H Absolute Nucleated RBC 0.000 Nucleated RBC % (auto) 0.0 Anion Gap 12 Estim Creat Clear Calc 77.9 Estimated GFR > 60 POC Glucose 302 H 32 L* Random Glucose 300 H Estimat Average Glucose Hemoglobin A1c % Calcium 8.9 Total Bilirubin 0.7 AST 115 H ALT 59 H Alkaline Phosphatase 152 H Total Protein 7.0 Albumin 3.8 Beta-Hydroxybutyrate 0.22 Beta HCG, Quant < 2 Urine Color Urine Appearance Urine pH Ur Specific [place] Urine Protein Urine Glucose (UA) Urine Ketones Urine Blood Urine Nitrite Ur Leukocyte Esterase Urine RBC Urine WBC Ur Squamous Epith Cells Urine Bacteria Hyaline Casts Urine Opiates Screen Ur Buprenorphine Scrn Ur Oxycodone Screen Urine Methadone Screen Urine Fentanyl Screen Ur Barbiturates Screen Ur Phencyclidine Scrn Ur Amphetamines Screen U Benzodiazepines Scrn Urine Cocaine Screen U Marijuana (THC) Screen Ethyl Alcohol 05/27/24 05/27/24 05/27/24 20:31 20:53 23:42 MCV MCH MCHC RDW Plt Count MPV Immature Gran % (Auto) Neut % (Auto) Lymph % (Auto) [place] % (Auto) Eos % (Auto) Baso % (Auto) Lymph # (Auto) [place] # (Auto) Eos # (Auto) Baso # (Auto) Abs Immat Gran (auto) Absolute Neuts (auto) Absolute Nucleated RBC Nucleated RBC % (auto) Anion Gap Estim Creat Clear Calc Estimated GFR POC Glucose 73 138 H Random Glucose Estimat Average Glucose 220 Hemoglobin A1c % 9.3 H Calcium Total Bilirubin AST ALT Alkaline Phosphatase Total Protein Albumin Beta-Hydroxybutyrate Beta HCG, Quant Urine Color Yellow Urine Appearance Cloudy Urine pH 6.5 Ur Specific [place] 1.025 Urine Protein 300 (3+) H Urine Glucose (UA) 500 H Urine Ketones 15 Urine Blood Negative Urine Nitrite Negative Ur Leukocyte Esterase Small (1+) H Urine RBC 0-2 Urine WBC 6-10 Ur Squamous Epith Cells >20 Urine Bacteria 3+ Hyaline Casts 6-10 Urine Opiates Screen POSITIVE H Ur Buprenorphine Scrn Not Detected Ur Oxycodone Screen Not Detected Urine Methadone Screen Not Detected Urine Fentanyl Screen Not Detected Ur Barbiturates Screen Not Detected Ur Phencyclidine Scrn Not Detected Ur Amphetamines Screen Not Detected U Benzodiazepines Scrn Not Detected Urine Cocaine Screen Not Detected U Marijuana (THC) Screen Not Detected Ethyl Alcohol < 10 05/28/24 05/28/24 05/28/24 02:29 04:11 06:01 MCV MCH MCHC RDW Plt Count MPV Immature Gran % (Auto) Neut % (Auto) Lymph % (Auto) [place] % (Auto) Eos % (Auto) Baso % (Auto) Lymph # (Auto) [place] # (Auto) Eos # (Auto) Baso # (Auto) Abs Immat Gran (auto) Absolute Neuts (auto) Absolute Nucleated RBC Nucleated RBC % (auto) Anion Gap Estim Creat Clear Calc Estimated GFR POC Glucose 191 H 234 H 155 H Random Glucose Estimat Average Glucose Hemoglobin A1c % Calcium Total Bilirubin AST ALT Alkaline Phosphatase Total Protein Albumin Beta-Hydroxybutyrate Beta HCG, Quant Urine Color Urine Appearance Urine pH Ur Specific [place] Urine Protein Urine Glucose (UA) Urine Ketones Urine Blood Urine Nitrite Ur Leukocyte Esterase Urine RBC Urine WBC Ur Squamous Epith Cells Urine Bacteria Hyaline Casts Urine Opiates Screen Ur Buprenorphine Scrn Ur Oxycodone Screen Urine Methadone Screen Urine Fentanyl Screen Ur Barbiturates Screen Ur Phencyclidine Scrn Ur Amphetamines Screen U Benzodiazepines Scrn Urine Cocaine Screen U Marijuana (THC) Screen Ethyl Alcohol 05/28/24 05/28/24 05/28/24 07:49 08:48 11:26 MCV 88.4 MCH 30.4 MCHC 34.4 RDW 14.4 Plt Count 285 MPV 11.3 Immature Gran % (Auto) 0.5 H Neut % (Auto) 74.9 H Lymph % (Auto) 19.[address] % (Auto) 5.1 Eos % (Auto) 0.1 Baso % (Auto) 0.1 Lymph # (Auto) 3.2 [place] # (Auto) 0.9 Eos # (Auto) 0.0 Baso # (Auto) 0.0 Abs Immat Gran (auto) 0.09 H Absolute Neuts (auto) 12.4 H Absolute Nucleated RBC 0.000 Nucleated RBC % (auto) 0.0 Anion Gap 16 Estim Creat Clear Calc 87.1 Estimated GFR > 60 POC Glucose 198 H 258 H Random Glucose 235 H Estimat Average Glucose Hemoglobin A1c % Calcium 8.2 L D Total Bilirubin 0.5 AST 89 H ALT 53 H Alkaline Phosphatase 130 H Total Protein 6.3 L Albumin 3.3 L Beta-Hydroxybutyrate Beta HCG, Quant Urine Color Urine Appearance Urine pH Ur Specific [place] Urine Protein Urine Glucose (UA) Urine Ketones Urine Blood Urine Nitrite Ur Leukocyte Esterase Urine RBC Urine WBC Ur Squamous Epith Cells Urine Bacteria Hyaline Casts Urine Opiates Screen Ur Buprenorphine Scrn Ur Oxycodone Screen Urine Methadone Screen Urine Fentanyl Screen Ur Barbiturates Screen Ur Phencyclidine Scrn Ur Amphetamines Screen U Benzodiazepines Scrn Urine Cocaine Screen U Marijuana (THC) Screen Ethyl Alcohol Microbiology Microbiology Results: Microbiology 05/27/24 Unknown Urine Culture - Final Urine clean catch - Clean Catch Midstream Assessment and Plan (1) Acute hyperglycemia: Status: Acute (2) Nausea & vomiting: Status: Acute Assessment and Plan: 49-year-old female with a past medical history significant for moderate persistent asthma, type 1 diabetes diagnosed at 17 years old, migraines, depression, and previous substance use, who presented again to the ED with worsening abd pain, nausea and vomiting. she presented to the ED last night with severe nausea, vomiting, and elevated glucose and was treated with an insulin drip. she left AMA as she was feeling better and did not want to be admitted due to lack of a bed upstairs at the time. Nausea and vomiting likely related to uncontrolled diabetes with hyperglycemia pH normal, gap closed from yesterday, negative beta hydroxybutyrate fs running 130-200's range - reactive leukocytosis,abd US yesterday negative for billiary process -?insulin pump issue, pt removed pump removed yesterday. plan: lantus 15U QHS,sliding scale insulin,reglan Q8H and PRN compazine check etoh level, urine tox negtaive ua: mild pyuria/bacteruria ,urine culture mixed ara-? uti has dysuria continue cefrtixone Moderate persistent asthma without acute exacerbation - continue home inhalers, montelukast and cetirizine Migraines - continue sumatriptan as needed Depression - continue duloxetine, Klonopin and trazodone Tobacco abuse - smoking cessation discussed - nicotine patch Obesity - weight loss encouraged Full code VTE prophylaxis: Lovenox ongoing need to stay-nausea and vomiting likely related to uncontrolled diabetes with hyperglycemia, left AMA yesterday although inpatient stay was recommended for better blood glucose control and further workup for her abdominal symptoms. Quality Stroke Does the patient have a stroke diagnosis?: No VTE Prior VTE?: No VTE Risk Level:: Medical - moderate - high VTE Device Contraindication: Treatment Not Indicated VTE Drug Contraindication: N/A - Med Ordered
[2024-05-28 16:16] LABS: Glucose, Whole Blood 262 mg/dL (60-115)
[2024-05-28 18:23] LABS: Glucose, Whole Blood 419 mg/dL (60-115)
[2024-05-28 19:46] LABS: Glucose, Whole Blood 441 mg/dL (60-115)
[2024-05-28] MEDS: traZODone HCL 100 MG TABLET PO (20:27)
[2024-05-28] MEDS: Insulin Glargine,Hum.rec.anlog 100 UNIT/ML 10 ML VIAL 15 UNIT SUBCUT (20:28)
[2024-05-28] MEDS: Enoxaparin Sodium 40 MG/0.4 ML SYRINGE SUBCUT (20:30)
[2024-05-28] MEDS: clonazePAM 1 MG TABLET PO (20:37)
[2024-05-28] MEDS: 0.9 % Sodium Chloride Flush 3 ML SYRINGE IVFLUSH (20:37)
[2024-05-28 23:28] LABS: Glucose, Whole Blood 223 mg/dL (60-115)
[2024-05-29] VITALS (7 sets, daily range): BP systolic 127–168; BP diastolic 62–74; PULSE 73–96; RESP 12–18; TEMP 36.6–37.1; O2SAT 92–95
[2024-05-29 05:33] LABS: Glucose, Whole Blood 33 mg/dL (60-115)
[2024-05-29 05:33] LABS: Glucose, Whole Blood 103 mg/dL (60-115)
[2024-05-29] MEDS: Metoclopramide HCl 10 MG/2 ML VIAL IVPUSH ×3 (06:12→20:50)
[2024-05-29 06:25] LABS: Glucose, Whole Blood 140 mg/dL (60-115)
[2024-05-29 06:33] LABS: MANUAL DIFF FLAG NO
[2024-05-29 06:37] LABS: Basophils Percent Auto 0.2 % (0-2); Eosinophils Absolute Auto 0.1 X10*3/uL (0.0-0.4); Eosinophils Percent Auto 0.6 % (0-4); Hematocrit 38.3 % (37.0-47.0); Hemoglobin 12.7 g/dl (12.0-16.0); Imm Gran Abs Auto 0.07 X10*3/uL (0.00-0.03); Imm Gran Pct Auto 0.6 % (0.0-0.4); Lymphocytes Absolute Auto 2.4 X10*3/uL (1.2-4.9); Lymphocytes Percent Auto 19.4 % (20-40); Mean Corpuscular HGB Conc 33.2 g/dl (31.0-35.0); Mean Corpuscular Volume 90.3 fL (80.0-98.0); Mean Platelet Volume 11.1 fL (9.4-12.3); Monocytes Absolute Auto 0.9 X10*3/uL (0.1-1.2); Neutrophils Percent Auto 72.2 % (45-73); Platelet Count 244 X10*3/uL (160-400); Red Blood Count 4.24 X10*6/uL (4.20-5.50); Red Cell Distribution Width 14.3 % (11.0-16.0); White Blood Count 12.5 X10*3/uL (4.8-10.8)
[2024-05-29 06:57] LABS: Alanine Aminotransferase 65 U/L (0-31); Albumin Level 3.2 g/dL (3.5-5.0); Alkaline Phosphatase 126 U/L (39-117); Anion Gap 15 (12-20); Aspartate Amino Transferase 110 U/L (5-31); Bilirubin Total 0.5 mg/dL (0.0-1.0); Blood Urea Nitrogen 8 mg/dL (9-16); Calcium 8.2 mg/dL (8.4-10.2); Carbon Dioxide 30 mmol/L (22-29); Chloride 97 mmol/L (96-108); Creatinine Clr Calc Pharmacy 84.7; Estimated Glomerular Filt Rate > 60; Glucose Random 138 mg/dL (60-115); Potassium 3.9 mmol/L (3.3-5.1); Sodium 138 mmol/L (135-145); Total Protein 6.1 g/dL (6.5-8.0)
[2024-05-29 07:39] LABS: Glucose, Whole Blood 191 mg/dL (60-115)
[2024-05-29] MEDS: cefTRIAXone sodium 1 GM VIAL IVPUSH (07:52)
[2024-05-29] MEDS: Nicotine 21 MG PATCH.TD24 TRANSDERMA (07:52)
[2024-05-29] MEDS: Loratadine 10 MG TABLET PO (07:53)
[2024-05-29] MEDS: Insulin Lispro 100 UNIT/ML 3 ML VIAL SUBCUT ×5 (07:53→21:08)
[2024-05-29] MEDS: Pravastatin Sodium 20 MG TABLET PO (07:53)
[2024-05-29] MEDS: Valsartan 80 MG TABLET PO (07:53)
[2024-05-29] MEDS: Montelukast Sodium 10 MG TABLET PO (07:54)
[2024-05-29] MEDS: DULoxetine HCl 20 MG CAPSULE.DR 40 MG PO (07:54)
[2024-05-29] MEDS: Naltrexone HCl 50 MG TABLET PO (07:54)
[2024-05-29] MEDS: Fluticasone/Vilanterol 200/25 BLST.W.DEV 1 PUFF INHALE (08:15)
--- NOTE | 2024-05-29 11:24 | HO.PM.IMPN ---
Subjective Subjective Date of Service: 05/29/24 Interval History: dm Review of Systems has flacutating fs hypoglycemia range dysuria improving Physical Exam Vital Signs: Vital Signs: Last Vital Signs Temp 98.1 F 05/29/24 11:05 Pulse 83 05/29/24 11:05 Resp 12 05/29/24 11:05 BP 142/63 H 05/29/24 11:05 Pulse Ox 92 05/29/24 11:05 O2 Del Method Room Air 05/29/24 11:05 BMI result Body Mass Index 32.6 Appearance: Alert.? Oriented X3.? cvs: rrr, [id number] , no murmur res: clear to auscultation ,no rhonchii or wheezing abd: no rebound or guarding ,nt, bs present. Gu: llq pain -improving ext pulses present , no cyanosis. neuro: axo3 , nonfocal. Objective Data Active Medications Acetaminophen (Acetaminophen 325 Mg Tablet) 650 mg PO Q6H PRN PRN Reason: Pain, Mild (Pain Scale 1-3), fever or headache Albuterol Sulfate (Albuterol Sulfate 90 Mcg 8 Gm Inhaler) 2 puff INHALE Q6H PRN PRN Reason: wheezing Calcium Carbonate (Calcium Carbonate 750 Mg Tab.Chew) 750 mg PO Q4H PRN PRN Reason: Heartburn Ceftriaxone Sodium (Ceftriaxone Sodium 1 Gm Vial) 1 gm IVPUSH Q24H [facility] Last Admin: 05/29/24 07:52 Dose: 1 gm Documented By: SIERRA Clonazepam (Clonazepam 1 Mg Tablet) 1 mg PO BEDTIME PRN PRN Reason: Insomnia Last Admin: 05/28/24 20:37 Dose: 1 mg Documented By: CHANDLER Docusate Sodium (Docusate Sodium 100 Mg Capsule) 100 mg PO BID PRN PRN Reason: constipation Duloxetine HCl (Duloxetine Hcl 20 Mg Capsule.Dr) 40 mg PO DAILY [facility] Last Admin: 05/29/24 07:54 Dose: 40 mg Documented By: SIERRA Enoxaparin Sodium (Enoxaparin Sodium 40 Mg/0.4 Ml Syringe) 40 mg SUBCUT Q24H [facility] Last Admin: 05/28/24 20:30 Dose: 40 mg Documented By: CHANDLER Fluticasone Propionate (Fluticasone Propionate Nasal 16 Gm [place]) 2 spray NOSTRIL-B DAILY [facility] Last Admin: 05/28/24 11:06 Dose: Not Given Documented By: JOSE ANGEL Non-Admin Reason: medication requested Fluticasone/Vilanterol (Fluticasone/Vilanterol 200/25 Blst.W.Dev) 1 puff INHALE RDAILY [facility] Last Admin: 05/29/24 08:15 Dose: 1 puff Documented By: KAYLA Glucose (Glucose Gel 15 Gm Gel..Gram.) 15 gm PO Q15M PRN; Protocol PRN Reason: per Hypoglycemia Standing Ord. Dextrose (D10) 250 mls @ 750 mls/hr IV Q15M PRN; Protocol PRN Reason: per Hypoglycemia Standing Ord. Last Infusion: 05/27/24 23:51 Dose: Infused Documented By: ALEIDA Insulin Glargine (Insulin Glargine,Hum.Rec.Anlog 100 Unit/Ml 10 Ml Vial) 10 unit SUBCUT BEDTIME [facility] Insulin Human Lispro (Insulin Lispro 100 Unit/Ml 3 Ml Vial) 0 unit SUBCUT QIDACHS [facility]; Protocol Last Admin: 05/29/24 07:53 Dose: 2 unit Documented By: SIERRA Loratadine (Loratadine 10 Mg Tablet) 10 mg PO DAILY [facility] Last Admin: 05/29/24 07:53 Dose: 10 mg Documented By: SIERRA Magnesium Hydroxide (Milk Of Magnesia 30 Ml Oral.Susp) 30 ml PO DAILY PRN PRN Reason: Constipation Melatonin (Melatonin 3 Mg Tablet) 6 mg PO BEDTIME PRN PRN Reason: Insomnia Metoclopramide HCl (Metoclopramide Hcl 10 Mg/2 Ml Vial) 10 mg IVPUSH Q8H [facility] Last Admin: 05/29/24 06:12 Dose: 10 mg Documented By: CHRIS Montelukast Sodium (Montelukast Sodium 10 Mg Tablet) 10 mg PO DAILY [facility] Last Admin: 05/29/24 07:54 Dose: 10 mg Documented By: SIERRA Naltrexone HCl (Naltrexone Hcl 50 Mg Tablet) 50 mg PO DAILY [facility] Last Admin: 05/29/24 07:54 Dose: 50 mg Documented By: SIERRA Nicotine (Nicotine 21 Mg Patch.Td24) 21 mg TRANSDERMA DAILY [facility] Last Admin: 05/29/24 07:52 Dose: 21 mg Documented By: SIERRA Pravastatin Sodium (Pravastatin Sodium 20 Mg Tablet) 20 mg PO DAILY [facility] Last Admin: 05/29/24 07:53 Dose: 20 mg Documented By: SIERRA Prochlorperazine Edisylate (Prochlorperazine Edisylate 10 Mg/2 Ml Vial) 5 mg IVPUSH Q4H PRN PRN Reason: Nausea and Vomiting Last Admin: 05/28/24 08:27 Dose: 5 mg Documented By: JOSE ANGEL Sodium Chloride (0.9 % Sodium Chloride Flush 3 Ml Syringe) 3 ml IVFLUSH QSHIFT [facility] Last Admin: 05/29/24 09:00 Dose: Not Given Documented By: SIERRA Non-Admin Reason: Previously Administered Sumatriptan Succinate (Sumatriptan Succinate 50 Mg Tablet) 50 mg PO DAILY MRX1 PRN PRN Reason: migraine Last Admin: 05/28/24 13:46 Dose: 50 mg Documented By: JOSE ANGEL Trazodone HCl (Trazodone Hcl 100 Mg Tablet) 100 mg PO BEDTIME [facility] Last Admin: 05/28/24 20:27 Dose: 100 mg Documented By: CHANDLER Valsartan (Valsartan 80 Mg Tablet) 80 mg PO DAILY [facility]; Protocol Last Admin: 05/29/24 07:53 Dose: 80 mg Documented By: SIERRA Labs 05/29/24 05:44 05/29/24 05:44 Labs: Laboratory Results - last 24 hr 05/28/24 05/28/24 05/28/24 11:26 16:04 18:19 MCV MCH MCHC RDW Plt Count MPV Immature Gran % (Auto) Neut % (Auto) Lymph % (Auto) [place] % (Auto) Eos % (Auto) Baso % (Auto) Lymph # (Auto) [place] # (Auto) Eos # (Auto) Baso # (Auto) Abs Immat Gran (auto) Absolute Neuts (auto) Absolute Nucleated RBC Nucleated RBC % (auto) Anion Gap Estim Creat Clear Calc Estimated GFR POC Glucose 258 H 262 H 419 H* Random Glucose Calcium Total Bilirubin AST ALT Alkaline Phosphatase Total Protein Albumin 05/28/24 05/28/24 05/29/24 19:35 23:25 03:35 MCV MCH MCHC RDW Plt Count MPV Immature Gran % (Auto) Neut % (Auto) Lymph % (Auto) [place] % (Auto) Eos % (Auto) Baso % (Auto) Lymph # (Auto) [place] # (Auto) Eos # (Auto) Baso # (Auto) Abs Immat Gran (auto) Absolute Neuts (auto) Absolute Nucleated RBC Nucleated RBC % (auto) Anion Gap Estim Creat Clear Calc Estimated GFR POC Glucose 441 H* 223 H 33 L* Random Glucose Calcium Total Bilirubin AST ALT Alkaline Phosphatase Total Protein Albumin 05/29/24 05/29/24 05/29/24 03:57 05:44 06:16 MCV 90.3 MCH 30.0 MCHC 33.2 RDW 14.3 Plt Count 244 MPV 11.1 Immature Gran % (Auto) 0.6 H Neut % (Auto) 72.2 Lymph % (Auto) 19.4 L [place] % (Auto) 7.0 Eos % (Auto) 0.6 Baso % (Auto) 0.2 Lymph # (Auto) 2.4 [place] # (Auto) 0.9 Eos # (Auto) 0.1 Baso # (Auto) 0.0 Abs Immat Gran (auto) 0.07 H Absolute Neuts (auto) 9.0 H Absolute Nucleated RBC 0.000 Nucleated RBC % (auto) 0.0 Anion Gap 15 Estim Creat Clear Calc 84.7 Estimated GFR > 60 POC Glucose 103 140 H Random Glucose 138 H Calcium 8.2 L Total Bilirubin 0.5 AST 110 H ALT 65 H Alkaline Phosphatase 126 H Total Protein 6.1 L Albumin 3.2 L 05/29/24 07:20 MCV MCH MCHC RDW Plt Count MPV Immature Gran % (Auto) Neut % (Auto) Lymph % (Auto) [place] % (Auto) Eos % (Auto) Baso % (Auto) Lymph # (Auto) [place] # (Auto) Eos # (Auto) Baso # (Auto) Abs Immat Gran (auto) Absolute Neuts (auto) Absolute Nucleated RBC Nucleated RBC % (auto) Anion Gap Estim Creat Clear Calc Estimated GFR POC Glucose 191 H Random Glucose Calcium Total Bilirubin AST ALT Alkaline Phosphatase Total Protein Albumin Microbiology Microbiology Results: Microbiology 05/27/24 Unknown Urine Culture - Final Urine clean catch - Clean Catch Midstream Assessment and Plan (1) Acute hyperglycemia: Status: Acute (2) Nausea & vomiting: Status: Acute Assessment and Plan: 49-year-old female with a past medical history significant for moderate persistent asthma, type 1 diabetes diagnosed at 17 years old, migraines, depression, and previous substance use, who presented again to the ED with worsening abd pain, nausea and vomiting. she presented to the ED last night with severe nausea, vomiting, and elevated glucose and was treated with an insulin drip. she left AMA as she was feeling better and did not want to be admitted due to lack of a bed upstairs at the time. Nausea and vomiting likely related to uncontrolled diabetes with flacuating fs (?hypoglycemia) pH normal, gap closed from yesterday, negative beta hydroxybutyrate fs [id number] ,abd US yesterday negative for billiary process -?insulin pump issue, pt removed pump removed yesterday. plan: lantus 15U QHS,sliding scale insulin,reglan Q8H and PRN compazine check etoh level, urine tox negtaive. ua: mild pyuria/bacteruria ,urine culture mixed ara-? uti leucocytosis improving dysuria improving,no sepsis continue ceftriaxone Moderate persistent asthma without acute exacerbation - continue home inhalers, montelukast and cetirizine Migraines - continue sumatriptan as needed Depression - continue duloxetine, Klonopin and trazodone Tobacco abuse - smoking cessation discussed - nicotine patch Obesity - weight loss encouraged Full code VTE prophylaxis: Lovenox ongoing need to stay-nausea and vomiting likely related to uncontrolled diabetes with hyperglycemia, left AMA yesterday although inpatient stay was recommended for better blood glucose control and further workup for her abdominal symptoms. Quality Stroke Does the patient have a stroke diagnosis?: No VTE Prior VTE?: No VTE Risk Level:: Medical - moderate - high VTE Device Contraindication: Treatment Not Indicated VTE Drug Contraindication: N/A - Med Ordered
[2024-05-29 11:47] LABS: Glucose, Whole Blood 344 mg/dL (60-115)
[2024-05-29] MEDS: SUMAtriptan succinate 50 MG TABLET PO (14:24)
[2024-05-29 16:24] LABS: Glucose, Whole Blood 348 mg/dL (60-115)
[2024-05-29] MEDS: 0.9 % Sodium Chloride Flush 3 ML SYRINGE IVFLUSH ×2 (16:34→20:47)
[2024-05-29 20:25] LABS: Glucose, Whole Blood 398 mg/dL (60-115)
[2024-05-29] MEDS: traZODone HCL 100 MG TABLET PO (20:50)
[2024-05-29] MEDS: clonazePAM 1 MG TABLET PO (20:50)
[2024-05-29] MEDS: Insulin Glargine,Hum.rec.anlog 100 UNIT/ML 10 ML VIAL 15 UNIT SUBCUT (21:07)
[2024-05-29] MEDS: Enoxaparin Sodium 40 MG/0.4 ML SYRINGE SUBCUT (21:09)
[2024-05-30] VITALS (9 sets, daily range): BP systolic 135–143; BP diastolic 59–63; PULSE 94–112; RESP 16; TEMP 36.7–36.9; O2SAT 83–95
[2024-05-30] MEDS: Metoclopramide HCl 10 MG/2 ML VIAL IVPUSH (06:02)
[2024-05-30 06:38] LABS: MANUAL DIFF FLAG NO
[2024-05-30 06:39] LABS: Basophils Percent Auto 0.2 % (0-2); Eosinophils Percent Auto 0.2 % (0-4); Hematocrit 36.4 % (37.0-47.0); Hemoglobin 12.6 g/dl (12.0-16.0); Imm Gran Abs Auto 0.09 X10*3/uL (0.00-0.03); Imm Gran Pct Auto 0.7 % (0.0-0.4); Lymphocytes Absolute Auto 2.1 X10*3/uL (1.2-4.9); Lymphocytes Percent Auto 16.4 % (20-40); Mean Corpuscular HGB Conc 34.6 g/dl (31.0-35.0); Mean Corpuscular Hemoglobin 30.4 pg (27.0-33.0); Mean Corpuscular Volume 87.7 fL (80.0-98.0); Mean Platelet Volume 11.1 fL (9.4-12.3); Monocytes Percent Auto 7.7 % (2-11); Neutrophils Absolute Auto 9.6 x10*3/uL (2.0-8.3); Neutrophils Percent Auto 74.8 % (45-73); Platelet Count 215 X10*3/uL (160-400); Red Blood Count 4.15 X10*6/uL (4.20-5.50); Red Cell Distribution Width 14.3 % (11.0-16.0); White Blood Count 12.8 X10*3/uL (4.8-10.8)
[2024-05-30 07:05] LABS: Glucose, Whole Blood 118 mg/dL (60-115)
[2024-05-30 07:25] LABS: Albumin Level 3.1 g/dL (3.5-5.0); Alkaline Phosphatase 120 U/L (39-117); Anion Gap 12 (12-20); Aspartate Amino Transferase 69 U/L (5-31); Bilirubin Total 0.2 mg/dL (0.0-1.0); Blood Urea Nitrogen 13 mg/dL (9-16); Calcium 8.1 mg/dL (8.4-10.2); Carbon Dioxide 28 mmol/L (22-29); Chloride 98 mmol/L (96-108); Creatinine Clr Calc Pharmacy 81.2; Estimated Glomerular Filt Rate > 60; Glucose Random 77 mg/dL (60-115); Potassium 3.8 mmol/L (3.3-5.1); Sodium 134 mmol/L (135-145); Total Protein 5.9 g/dL (6.5-8.0)
[2024-05-30 07:44] LABS: Alanine Aminotransferase 60 U/L (0-31)
[2024-05-30] MEDS: DULoxetine HCl 20 MG CAPSULE.DR 40 MG PO (07:44)
[2024-05-30] MEDS: Valsartan 80 MG TABLET PO (07:44)
[2024-05-30] MEDS: Loratadine 10 MG TABLET PO (07:45)
[2024-05-30] MEDS: Naltrexone HCl 50 MG TABLET PO (07:45)
[2024-05-30] MEDS: Pravastatin Sodium 20 MG TABLET PO (07:45)
[2024-05-30] MEDS: Montelukast Sodium 10 MG TABLET PO (07:45)
[2024-05-30] MEDS: 0.9 % Sodium Chloride Flush 3 ML SYRINGE IVFLUSH (07:47)
[2024-05-30] MEDS: cefTRIAXone sodium 1 GM VIAL IVPUSH (07:47)
[2024-05-30] MEDS: Nicotine 21 MG PATCH.TD24 TRANSDERMA (07:47)
[2024-05-30] MEDS: Fluticasone/Vilanterol 200/25 BLST.W.DEV 1 PUFF INHALE (08:03)
[2024-05-30] MEDS: predniSONE 20 MG TABLET PO (10:25)
[2024-05-30] MEDS: Albuterol/Iprat 2.5/0.5MG 3 ML AMPUL.NEB INHALE (10:26)
[2024-05-30 11:19] LABS: Glucose, Whole Blood 475 mg/dL (60-115)
--- NOTE | 2024-05-30 11:37 | PC.NURSE ---
Point of care was 475 at 1130a. When checking on pt with physician pt noted that insulin pump started working and had already given herself 3 units of insulin through the pump. gave the ok for the pt to administer the other 10u via the pump and hold the Sliding scale administration for 1130a. 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
--- NOTE | 2024-05-30 11:47 | PM.DS ---
DS: Providers Provider Date of Service: 05/30/24 Date of admission: 05/27/24 20:45 Date of discharge: 05/30/24 Primary care physician: Nilton Parikh MD Attending physician on discharge: Phi Syed Discharging clinician: Phi Syed DS: Diagnosis Discharge Diagnosis (1) Acute hyperglycemia: Status: Acute (2) Nausea & vomiting: Status: Acute DS: Summary Hospital Course Hospital Course: HPI:49-year-old female with a past medical history significant for moderate persistent asthma, type 1 diabetes diagnosed at 17 years old, migraines, depression, and previous substance use, who presented again to the ED with worsening abd pain, nausea and vomiting. she presented to the ED last night with severe nausea, vomiting, and elevated glucose and was treated with an insulin drip. she left AMA as she was feeling better and did not want to be admitted due to lack of a bed upstairs at the time. she reports that her vomiting is always liquid, has not eaten in days, no hematemesis or coffee ground emesis. she has baseline contsitpation. she is not hydrating well and has not eaten in 5 days. she reports generalized cramping abd pain, worse in the LUQ. no marijuana use or etoh. she uses an insulin pump and does not know her basal rate and feels that the pump has been malfunctioning. she also complains of a frontal headache and denies cough, SOB, or chest pain. reports some wheezing and states she uses her albuteral 4-5x/day on average. Hospital course: Patient was admitted to the hospital because of uncontrolled diabetes question brittle?-has fluctuating fingersticks: Further workup-electrode turner and finisher to be has UTI,abd us negative(please see imaging studies). Her symptoms are improved with hydration, antiemetics and IV antibiotics, close monitoring of fingersticks. Patient says that her pump had issue which is going to get fixed today with her director of undergraduate admissions so she is going directly to her endocrinology clinic. We told her if her pump does not get fixed she should go to the emergency room if does not get a plan from her endocrinology clinic. Also if her fingersticks are remain uncontrolled she should go to the emergency room also. UTI: Given IV antibiotics seems improved, going home with p.o. Ceftin 500 mg b.i.d. for 5 more days. Mild moderate persistent asthma exacerbation: Given brief course of steroids and oxygen and nebs seems to be improved, continue home asthma medications. We will avoid steroids since causes hyperglycemia. plan: complete p.o. Ceftin 500 mg b.i.d. for 5 more days. Patient has possible brittle diabetes as per patient her pump is now seems working but she is going to her endocrinology clinic-for further plan for her diabetes-please see above. Above management discussed with the patient detail length, she understand and in agreement with the above plan, time spent 40 minutes. Staff witnessed conversation. Time Attestation Total time managing care of this patient today: 40 mintues. Discharge Coordination Time (in mins): 40 min Quality: Safe Use of Opioids Does Pt have an Active Cancer Diagnosis on the Problem List?: No Quality: Stroke Does the patient have a stroke diagnosis?: No Physical Exam Vital Signs: Vital Signs: Last Vital Signs Temp 98.0 F 05/30/24 11:11 Pulse 94 05/30/24 11:11 Resp 16 05/30/24 11:11 BP 143/63 H 05/30/24 11:11 Pulse Ox 95 05/30/24 11:11 O2 Del Method Room Air 05/30/24 11:11 O2 Flow Rate 3 05/30/24 08:30 BMI result Body Mass Index 32.6 Appearance: Alert.? Oriented X3.? cvs: rrr, [id number] , no murmur res: clear to auscultation ,no rhonchii or wheezing abd: no rebound or guarding ,nt, bs present. Gu: no cva tenderness . ext pulses present , no cyanosis. neuro: axo3 , nonfocal. DS: Data Data Completed and Pending Labs on day of discharge: Laboratory Results - last 24 hr 05/29/24 05/29/24 05/29/24 11:38 16:13 20:05 WBC RBC Hgb Hct MCV MCH MCHC RDW Plt Count MPV Immature Gran % (Auto) Neut % (Auto) Lymph % (Auto) [place] % (Auto) Eos % (Auto) Baso % (Auto) Lymph # (Auto) [place] # (Auto) Eos # (Auto) Baso # (Auto) Abs Immat Gran (auto) Absolute Neuts (auto) Absolute Nucleated RBC Nucleated RBC % (auto) Sodium Potassium Chloride Carbon Dioxide Anion Gap BUN Creatinine Estim Creat Clear Calc Estimated GFR POC Glucose 344 H 348 H 398 H* Random Glucose Calcium Total Bilirubin AST ALT Alkaline Phosphatase Total Protein Albumin 05/30/24 05/30/24 05/30/24 05:17 05:18 07:00 WBC 12.8 H RBC 4.15 L Hgb 12.6 Hct 36.4 L MCV 87.7 MCH 30.4 MCHC 34.6 RDW 14.3 Plt Count 215 MPV 11.1 Immature Gran % (Auto) 0.7 H Neut % (Auto) 74.8 H Lymph % (Auto) 16.4 L [place] % (Auto) 7.7 Eos % (Auto) 0.2 Baso % (Auto) 0.2 Lymph # (Auto) 2.1 [place] # (Auto) 1.0 Eos # (Auto) 0.0 Baso # (Auto) 0.0 Abs Immat Gran (auto) 0.09 H Absolute Neuts (auto) 9.6 H Absolute Nucleated RBC 0.000 Nucleated RBC % (auto) 0.0 Sodium 134 L Potassium 3.8 Chloride 98 Carbon Dioxide 28 Anion Gap 12 BUN 13 Creatinine 0.73 Estim Creat Clear Calc 81.2 Estimated GFR > 60 POC Glucose 118 H Random Glucose 77 Calcium 8.1 L Total Bilirubin 0.2 AST 69 H ALT 60 H Alkaline Phosphatase 120 H Total Protein 5.9 L Albumin 3.1 L 05/30/24 11:15 WBC RBC Hgb Hct MCV MCH MCHC RDW Plt Count MPV Immature Gran % (Auto) Neut % (Auto) Lymph % (Auto) [place] % (Auto) Eos % (Auto) Baso % (Auto) Lymph # (Auto) [place] # (Auto) Eos # (Auto) Baso # (Auto) Abs Immat Gran (auto) Absolute Neuts (auto) Absolute Nucleated RBC Nucleated RBC % (auto) Sodium Potassium Chloride Carbon Dioxide Anion Gap BUN Creatinine Estim Creat Clear Calc Estimated GFR POC Glucose 475 H* Random Glucose Calcium Total Bilirubin AST ALT Alkaline Phosphatase Total Protein Albumin Discharge Plan Discharge Anticipated Discharge Date/Time: 05/30/24 11:38 Patient Disposition: Home, Self-Care Discharge Diagnosis: Diabetes with fluctuating fingersticks, UTI. Referrals: Nilton Parikh MD [Primary Care Provider] - 1 Week Discharge Medications: New cefuroxime axetil 500 mg Tablet 500 mg PO Q12H Qty: 10 0RF Continued (DME) Tandem Mobi System Mis MISCELLANEOUS Rx Instructions: inject up to 80 units per day subcutaneously via pump ipratropium-albuterol 0.5 mg-3 mg(2.5 mg base)/3 mL solution for nebulization 3 ml inhalation QID PRN (Reason: wheezing) docusate sodium 100 mg capsule 100 mg PO BID PRN (Reason: constipation) insulin lispro 100 unit/mL solution 0 - 80 unit subcut DAILY Glucagon Emergency Kit (human) 1 mg recon soln 1 mg subcut NEEDED PRN (Reason: hypoglycemia) albuterol sulfate [Ventolin HFA] 90 mcg/actuation HFA aerosol inhaler 2 puff inhalation Q6H PRN (Reason: wheezing) (DME) Dexcom G6 Sensor Device MISCELLANEOUS Q10D (DME) Dexcom G6 Transmitter Device MISCELLANEOUS sumatriptan succinate 50 mg Tablet 50 mg PO DAILY MRX1 PRN (Reason: migraine) Qty: 0 0RF fluticasone propionate 50 mcg/actuation [place],Suspension 2 spray INTRANASAL DAILY Rx Instructions: administer into each nostril trazodone 100 mg Tablet 100 mg PO BEDTIME PRN (Reason: Sleep) duloxetine 20 mg Capsule,Delayed Release(Dr/Ec) 40 mg PO DAILY fluticasone propion-salmeterol [Advair Diskus] 500-50 mcg/dose blister with device 1 ea inhalation BID naltrexone 50 mg Tablet 50 mg PO DAILY valsartan 80 mg Tablet 80 mg PO DAILY nicotine 21 mg/24 hr Patch 24 Hour 1 patch TRANSDERMAL DAILY lovastatin 20 mg Tablet 20 mg PO DAILY cetirizine 10 mg Tablet 10 mg PO DAILY montelukast 10 mg Tablet 10 mg PO DAILY mupirocin 2 % Ointment 1 appl TOPICAL TID Protocol: Apply to: Apply to: right ear rash clonazepam 1 mg Tablet 1 mg PO BEDTIME PRN (Reason: Sleep) Rx Instructions: administer 30 minutes before bedtime senna 8.6 mg capsule 8.6 mg PO DAILY PRN (Reason: constipation) Qty: 30 1RF bisacodyl [Dulcolax (bisacodyl)] 10 mg suppository 10 mg [place] DAILY PRN (Reason: constipation) Qty: 20 2RF Discharge Orders: Discharge Order (Routine); Ordered 05/30/24 Ordered By: Phi Syed Diet: Advance to usual diet Activity on Discharge: As tolerated Stand Alone Forms: Patient Portal Discharge page Print Language: Latvian Care Plan Goals: Patient was admitted to the hospital because of uncontrolled diabetes question brittle?-has fluctuating fingersticks: Further workup-electrode turner and finisher to be has U TI, Her symptoms are improved with hydration, antiemetics and IV antibiotics, close monitoring of fingersticks. Patient says that her pump had issue which is going to get fixed today with her director of undergraduate admissions so she is going directly to her endocrinology clinic. We told her if her pump does not get fixed she should go to the emergency room if does not get a plan from her endocrinology clinic. Also if her fingersticks are remain uncontrolled she should go to the emergency room also. UTI: Given IV antibiotics seems improved, going home with p.o. Ceftin 500 mg b.i.d. for 5 more days. Mild moderate persistent asthma exacerbation: Given brief course of steroids and oxygen and nebs seems to be improved, continue home asthma medications. We will avoid steroids since causes hyperglycemia. Health Concerns: As above. Plan of Treatment: As above. Assessment: As above. Patient Instructions: Dysuria (GEN), Diabetes Type 1: Management (DC)
--- NOTE | 2024-05-30 11:56 | MHC.CM.PN ---
PT WILL DC HOME TODAY WITH NO SERVICES VIA PRIVATE TRANSPORT
[2024-05-30] MEDS: cefuroxime axetiL 500 MG TABLET PO (12:03)
== END 2024-05-30 12:09 | disposition home or self-care (01) | DRG 420 ==
LOC: HO.ED 19:37 → HO.EDOVER 21:33 → HO.S3 23:10
PROVIDERS: Admitting Provider Physician Assistant; Emergency Provider Emergency Medicine; PCP Family Medicine; Visit Provider Internal Medicine
DX: E10.10 Type 1 diabetes mellitus with ketoacidosis without coma (principal); E66.9 Obesity, unspecified; G43.909 Migraine, unspecified, not intractable, without status migrainosus; N39.0 Urinary tract infection, site not specified; J45.40 Moderate persistent asthma, uncomplicated; F33.9 Major depressive disorder, recurrent, unspecified; Z96.41 Presence of insulin pump (external) (internal); F17.210 Nicotine dependence, cigarettes, uncomplicated; Z71.6 Tobacco abuse counseling; Z23 Encounter for immunization; Z68.32 Body mass index [BMI] 32.0-32.9, adult; Z79.51 Long term (current) use of inhaled steroids; Z79.899 Other long term (current) drug therapy
CPT/HCPCS: 36415; 80053; 80307; 81001; 82010; 82947; 83036; 84702; 85025; 87086; 90656; 94640; 99285; J0696; J0737; J1650; J2405; J2765

== ENCOUNTER → 2024-05-27 20:45 | Outpatient (BNV) | payer OTHER, SELFPAY | PROVIDERS: Admitting Provider Physician Assistant; Emergency Provider Emergency Medicine; PCP Family Medicine; Visit Provider Internal Medicine | DX: R11.2 Nausea with vomiting, unspecified (principal); E10.65 Type 1 diabetes mellitus with hyperglycemia; Z72.0 Tobacco use; E66.811 Obesity, class 1 | CPT/HCPCS: 99223; 99232; 99239 ==

== ENCOUNTER 2024-07-03 22:51 | Emergency (ER) | payer OTHER, SELFPAY ==
[2024-07-03 23:02] VITALS: BP 111/64; BP 125/71; PULSE 77; PULSE 83; RESP 18; TEMP 36.4; O2SAT 95; BMI 32.8
--- NOTE | 2024-07-03 23:05 | ED_ITS ---
HPI - General Adult General Chief complaint: General Medical Stated complaint: hypoglycemic etoh Time Seen by Provider: 07/03/24 22:58 Source: patient and EMS Mode of arrival: EMS Limitations: no limitations History of Present Illness ED Provider: Dr. Gris Anne HPI narrative: Patient comes to the emergency room complaining of a syncopal episode. Patient states that her sugar got low. Patient admits that she has been drinking heavily alcohol, patient is now homeless. Patient states that when she passed out, her boyfriend called 911. EMS gave her a dose of D50, glucose on arrival is 6%. Patient awake and alert. Patient denies SI or HI. Patient is under the influence of alcohol, denies SI or HI Related Data Home Medications ?Medication ?Instructions ?Recorded ?Confirmed subcutaneous insulin pump (Tandem 10/04/20 05/27/24 Mobi System) albuterol sulfate 90 mcg/actuation 2 puff inhalation Q6H PRN wheezing 10/23/23 05/27/24 aerosol inhaler (Ventolin HFA) blood-glucose sensor (DexOnyx [employer] G6 10/23/23 10/24/23 Sensor device) blood-glucose transmitter (Dexcom 10/23/23 10/24/23 G6 Transmitter device) docusate sodium 100 mg capsule 100 mg PO BID PRN constipation 10/23/23 05/27/24 glucagon 1 mg solution for 1 mg subcut NEEDED PRN 10/23/23 05/27/24 injection (Glucagon Emergency Kit) hypoglycemia insulin lispro 100 unit/mL 0 - 80 unit subcut DAILY 10/23/23 05/27/24 subcutaneous solution ipratropium 0.5 mg-albuterol 3 mg 3 ml inhalation QID PRN wheezing 10/23/23 05/27/24 (2.5 mg base)/3 mL nebulization soln cetirizine 10 mg tablet 10 mg PO DAILY 05/27/24 05/27/24 clonazepam 1 mg tablet 1 mg PO BEDTIME PRN Sleep 05/27/24 05/27/24 duloxetine 20 mg capsule,delayed 40 mg PO DAILY 05/27/24 05/27/24 release fluticasone 500 mcg-salmeterol 50 1 ea inhalation BID 05/27/24 05/27/24 mcg/dose blistr powdr for inhalation (Advair Diskus) fluticasone propionate 50 2 spray intranasal DAILY 05/27/24 05/27/24 mcg/actuation nasal spray,suspension lovastatin 20 mg tablet 20 mg PO DAILY 05/27/24 05/27/24 montelukast 10 mg tablet 10 mg PO DAILY 05/27/24 05/27/24 mupirocin 2 % topical ointment 1 appl topical TID 05/27/24 05/27/24 naltrexone 50 mg tablet 50 mg PO DAILY 05/27/24 05/27/24 nicotine 21 mg/24 hr daily 1 patch transdermal DAILY 05/27/24 05/27/24 transdermal patch trazodone 100 mg tablet 100 mg PO BEDTIME PRN Sleep 05/27/24 05/27/24 valsartan 80 mg tablet 80 mg PO DAILY 05/27/24 05/27/24 Previous Rx's ?Medication ?Instructions ?Recorded sumatriptan succinate 50 mg tablet 50 mg PO DAILY MRX1 PRN migraine 10/29/23 #0 tabs bisacodyl 10 mg rectal suppository 10 mg [place] DAILY PRN constipation 12/03/23 (Dulcolax (bisacodyl)) #20 ea sennosides 8.6 mg capsule (senna) 8.6 mg PO DAILY PRN constipation 12/03/23 #30 caps cefuroxime axetil 500 mg tablet 500 mg PO Q12H #10 tabs 05/30/24 Allergies Allergy/AdvReac Type Severity Reaction Status Date / Time ibuprofen [IBUPROFEN] Allergy Severe LIGHTHEADED;FEELS Verified 07/03/24 23:05 LIKE CHEST IS CLOSING IN;CLAUSTROPHOBIC Seasonal Allergies Allergy Severe Sneezing Verified 07/03/24 23:05 Review of Systems 2 Review of Systems: Constitutional : No Weight loss, No Fever, No Chills, No Night Sweats, No Fatigue, No Malaise ENT/Mouth : No Hearing loss, No Ear Pain, No Nasal Congestion, No Sinus Pain, No Hoarseness, No sore throat, No Rhinorrhea, No Swallowing Difficulty Eyes: No Eye Pain, No Swelling, No Redness, No Foreign Body, No Discharge, No Vision Changes Cardiovascular : No Chest Pain, No SOB, No Dyspnea on Exertion, No Orthopnea, No Edema, No Palpitations Respiratory : No Cough, No Sputum, No Wheezing, No Smoke Exposure, No Dyspnea Gastrointestinal : No Nausea, No Vomiting, No Diarrhea, No Constipation, No abdominal Pain, No Hematochezia, No Melena Genitourinary : no irregular bleeding, No Dysuria, No Urinary Frequency, No Hematuria, No Urinary Incontinence, No Urgency, No Flank Pain, No Urinary Flow Changes, No Hesitancy Musculoskeletal : No joint pain, No Myalgias, No Joint Swelling Skin : No Skin Lesions, No rash Neuro : No Weakness, No Numbness, No Paresthesias, complaining of 1 episode of loss of consciousness due to hypoglycemia,, No Dizziness, No Headache Psych : No Anxiety/Panic, No Depression, No SI/HI/AH/VH, patient states she is homeless, has been drinking more than usual Heme/Lymph: No Bruising, No Bleeding,No Lymphadenopathy Endocrine : No Polyuria, No Polydipsia, No Temperature Intolerance, complaining of low blood sugar today PMFSH Past Medical History Medical History Shoulder pain with history of repair of rotator cuff PTSD (post-traumatic stress disorder) MDD (major depressive disorder), recurrent episode, moderate Opioid use disorder Hypoxia Moderate obesity Hypercapnic respiratory failure, chronic Asthma Drug overdose Diabetes Transaminitis Pneumonia Pneumonia Post-tubal ligation syndrome Drug abuse in remission Asthma Diabetic acetonemia Surgical History H/O tubal ligation H/O colonoscopy Family History Family History Mother Colon cancer Lung cancer Maternal Aunt Lung cancer Social History Social History Household Members: Significant Other Household Members Other:: step children Housing: House Do you presently have visiting nurse or other home services: No Alcohol intake: never Comment: pt does call with help w IV pole when OOB to bathroom Patient Tobacco Use Status: Current everyday Tobacco user Tobacco use type: Cigarette Cigarette Packs Per Day: 1 Cigarettes Per Day: 20 Years Smoked: 20 e-Cigarette/Vaping Use: Never Used Second Hand Smoke Exposure: Yes Substance Use Type: Former Substance User and Marijuana Advance Directives Date on File: 06/07/21 Do you have a plan to hurt others: No Plan service: No Current occupational status: unemployed Sexual orientation: Straight/Heterosexual Physical Exam ED Vital Signs: Vital Signs - 24 hr 07/03/24 23:02 Temperature 97.5 F Pulse Rate 83 Respiratory Rate 18 Blood Pressure 111/64 Pulse Oximetry 95 Oxygen Delivery Method Room Air BMI result Body Mass Index 32.8 Const Other: Appearance: Alert. Oriented X3. No acute distress. Eyes: Pupils equal, round and reactive to light. ENT: Pharynx normal. Neck: Normal inspection. Neck supple. No lymph nodes noted. No crepitus CVS: Normal heart rate and rhythm. Pulses normal. Normal S1 and S2 Respiratory: No respiratory distress. Breath sounds normal. No Wheezing. No rales Abdomen: Soft and nontender. No rigidity. No distention. Skin: Skin warm and dry. Normal skin color. Normal skin turgor. Extremities: No lower extremity edema. No Lacerations. No Rash Neuro: Oriented X 3. No motor deficit. No sensory deficit. Moving all extremities. No slurred speech. CN 2 through 12 grossly intact Psych: calm, cooperative patient tearful Course Course Course Narrative: Patient's glucose 84 Patient awake, alert and oriented, stable vitals All of patient's labs and EKG pending Medications Administered Generic Name Dose Route Start Last Admin Trade Name Freq PRN Reason Stop Dose Admin Dextrose 250 mls @ 750 mls/hr 07/04/24 01:03 07/04/24 01:11 D10 IV 750 mls/hr Q15M PRN Administration per Hypoglycemia Standing Ord. Medical Decision Making Medical Decision Making [facility] Narrative: My interpretation of labs: Normal hematology, normal chemistry, glucose point of care 53. Patient is too intoxicated at this time to give any history. Patient was given D50. Patient awake but falls back asleep . Urinalysis negative for UTI Plan: Reassess blood glucose every 20-30 minutes. When patient is awake, patient may eat. If patient is still unable to keep up with patient may need to be admitted. Patient's last friend of care 119. Patient is still intoxicated -sign-out given to my colleague Dr. Hall Differential Diagnosis Differential Diagnoses: The differential diagnosis associated with the presentation includes Lab Data [facility] Lab Attestation statement: I reviewed the patient's lab results. 07/03/24 23:21 07/03/24 23:21 Labs: Lab Results 07/03/24 07/03/24 07/04/24 Range/Units 23:01 23:21 01:01 WBC 9.5 (4.8-10.8) X10*3/uL RBC 4.74 (4.20-5.50) X10*6/uL Hgb 14.2 (12.0-16.0) g/dl Hct 40.2 (37.0-47.0) % MCV 84.8 (80.0-98.0) fL MCH 30.0 (27.0-33.0) pg MCHC 35.3 H (31.0-35.0) g/dl RDW 13.9 (11.0-16.0) % Plt Count 279 D (160-400) X10*3/uL MPV 9.9 (9.4-12.3) fL Immature Gran % (Auto) 0.2 (0.0-0.4) % Neut % (Auto) 56.3 (45-73) % Lymph % (Auto) 37.3 (20-40) % [place] % (Auto) 5.7 (2-11) % Eos % (Auto) 0.4 (0-4) % Baso % (Auto) 0.1 (0-2) % Lymph # (Auto) 3.6 (1.2-4.9) X10*3/uL [place] # (Auto) 0.5 (0.1-1.2) X10*3/uL Eos # (Auto) 0.0 (0.0-0.4) X10*3/uL Baso # (Auto) 0.0 (0.0-0.2) X10*3/uL Abs Immat Gran (auto) 0.02 (0.00-0.03) X10*3/uL Absolute Neuts (auto) 5.4 (2.0-8.3) x10*3/uL Absolute Nucleated RBC 0.000 (0.0-0.012) X10*3/uL Nucleated RBC % (auto) 0.0 (0.0-0.2) /100WBC Sodium 136 (135-145) mmol/L Potassium 3.7 (3.3-5.1) mmol/L Chloride 101 (96-108) mmol/L Carbon Dioxide 23 (22-29) mmol/L Anion Gap 16 (12-20) BUN 11 (9-16) mg/dL Creatinine 0.63 (0.5-1.4) mg/dL Estim Creat Clear Calc 90.3 Estimated GFR > 60 POC Glucose 83 53 L* (60-115) mg/dL Random Glucose 101 (60-115) mg/dL Calcium 8.1 L (8.4-10.2) mg/dL Magnesium 2.1 (1.6-2.6) mg/dL Total Bilirubin 0.2 (0.0-1.0) mg/dL Direct Bilirubin < 0.2 (0.0-0.5) mg/dL AST 88 H (5-31) U/L ALT 72 H (0-31) U/L Alkaline Phosphatase 117 (39-117) U/L Troponin I High Sens < 2.7 (<3.5-17.0) ng/L Total Protein 7.6 (6.5-8.0) g/dL Albumin 3.8 (3.5-5.0) g/dL Ethyl Alcohol 324 H* mg/dL 07/04/24 Range/Units 01:27 WBC (4.8-10.8) X10*3/uL RBC (4.20-5.50) X10*6/uL Hgb (12.0-16.0) g/dl Hct (37.0-47.0) % MCV (80.0-98.0) fL MCH (27.0-33.0) pg MCHC (31.0-35.0) g/dl RDW (11.0-16.0) % Plt Count (160-400) X10*3/uL MPV (9.4-12.3) fL Immature Gran % (Auto) (0.0-0.4) % Neut % (Auto) (45-73) % Lymph % (Auto) (20-40) % [place] % (Auto) (2-11) % Eos % (Auto) (0-4) % Baso % (Auto) (0-2) % Lymph # (Auto) (1.2-4.9) X10*3/uL [place] # (Auto) (0.1-1.2) X10*3/uL Eos # (Auto) (0.0-0.4) X10*3/uL Baso # (Auto) (0.0-0.2) X10*3/uL Abs Immat Gran (auto) (0.00-0.03) X10*3/uL Absolute Neuts (auto) (2.0-8.3) x10*3/uL Absolute Nucleated RBC (0.0-0.012) X10*3/uL Nucleated RBC % (auto) (0.0-0.2) /100WBC Sodium (135-145) mmol/L Potassium (3.3-5.1) mmol/L Chloride (96-108) mmol/L Carbon Dioxide (22-29) mmol/L Anion Gap (12-20) BUN (9-16) mg/dL Creatinine (0.5-1.4) mg/dL Estim Creat Clear Calc Estimated GFR POC Glucose 119 H (60-115) mg/dL Random Glucose (60-115) mg/dL Calcium (8.4-10.2) mg/dL Magnesium (1.6-2.6) mg/dL Total Bilirubin (0.0-1.0) mg/dL Direct Bilirubin (0.0-0.5) mg/dL AST (5-31) U/L ALT (0-31) U/L Alkaline Phosphatase (39-117) U/L Troponin I High Sens (<3.5-17.0) ng/L Total Protein (6.5-8.0) g/dL Albumin (3.5-5.0) g/dL Ethyl Alcohol mg/dL Critical Care Time Critical Care Time Critical Care Time: Yes Total Critical Care Time: 75 Attestation: I have personally provided critical care time. Time includes review of lab data, radiology results, discussion with consultants, and monitoring for potential decompensation. Intervention performed as documented. Discharge Plan Discharge Clinical Impression: Hypoglycemia, Alcohol intoxication Patient Disposition: Still a Patient Prescriptions: No Action (DME) Tandem [employer] System Misc MISCELLANEOUS Rx Instructions: inject up to 80 units per day subcutaneously via pump ipratropium-albuterol 0.5 mg-3 mg(2.5 mg base)/3 mL solution for nebulization 3 ml inhalation QID PRN (Reason: wheezing) docusate sodium 100 mg capsule 100 mg PO BID PRN (Reason: constipation) insulin lispro 100 unit/mL solution 0 - 80 unit subcut DAILY Glucagon Emergency Kit (human) 1 mg recon soln 1 mg subcut NEEDED PRN (Reason: hypoglycemia) albuterol sulfate [Ventolin HFA] 90 mcg/actuation HFA aerosol inhaler 2 puff inhalation Q6H PRN (Reason: wheezing) (DME) Dexcom G6 Sensor Device MISCELLANEOUS Q10D (DME) Dexcom G6 Transmitter Device MISCELLANEOUS sumatriptan succinate 50 mg Tablet 50 mg PO DAILY MRX1 PRN (Reason: migraine) Qty: 0 0RF fluticasone propionate 50 mcg/actuation [place],Suspension 2 spray INTRANASAL DAILY Rx Instructions: administer into each nostril trazodone 100 mg Tablet 100 mg PO BEDTIME PRN (Reason: Sleep) duloxetine 20 mg Capsule,Delayed Release(Dr/Ec) 40 mg PO DAILY fluticasone propion-salmeterol [Advair Diskus] 500-50 mcg/dose blister with device 1 ea inhalation BID naltrexone 50 mg Tablet 50 mg PO DAILY valsartan 80 mg Tablet 80 mg PO DAILY nicotine 21 mg/24 hr Patch 24 Hour 1 patch TRANSDERMAL DAILY lovastatin 20 mg Tablet 20 mg PO DAILY cetirizine 10 mg Tablet 10 mg PO DAILY montelukast 10 mg Tablet 10 mg PO DAILY mupirocin 2 % Ointment 1 appl TOPICAL TID Protocol: Apply to: Apply to: right ear rash clonazepam 1 mg Tablet 1 mg PO BEDTIME PRN (Reason: Sleep) Rx Instructions: administer 30 minutes before bedtime cefuroxime axetil 500 mg Tablet 500 mg PO Q12H Qty: 10 0RF senna 8.6 mg capsule 8.6 mg PO DAILY PRN (Reason: constipation) Qty: 30 1RF bisacodyl [Dulcolax (bisacodyl)] 10 mg suppository 10 mg [place] DAILY PRN (Reason: constipation) Qty: 20 2RF Print Language: Lebanese
--- NOTE | 2024-07-03 23:05 | ECG_ITS ---
Test Reason : SYNCOPE Blood Pressure : / mmHG Vent. Rate : 078 BPM Atrial Rate : 078 BPM P-R Int : 168 ms QRS Dur : 088 ms QT Int : 390 ms P-R-T Axes : 067 023 058 degrees QTc Int : 444 ms Normal sinus rhythm Cannot rule out Anterior infarct (cited on or before 26-MAY-2024) Abnormal ECG When compared with ECG of 26-MAY-2024 18:38, T wave amplitude has decreased in Lateral leads Referred By: Gris Anne Electronically Signed By:THEODORE JON MD
[2024-07-03 23:25] LABS: MANUAL DIFF FLAG NO
[2024-07-03 23:26] LABS: Basophils Percent Auto 0.1 % (0-2); Eosinophils Percent Auto 0.4 % (0-4); Hematocrit 40.2 % (37.0-47.0); Hemoglobin 14.2 g/dl (12.0-16.0); Imm Gran Abs Auto 0.02 X10*3/uL (0.00-0.03); Imm Gran Pct Auto 0.2 % (0.0-0.4); Lymphocytes Absolute Auto 3.6 X10*3/uL (1.2-4.9); Lymphocytes Percent Auto 37.3 % (20-40); Mean Corpuscular HGB Conc 35.3 g/dl (31.0-35.0); Mean Corpuscular Volume 84.8 fL (80.0-98.0); Mean Platelet Volume 9.9 fL (9.4-12.3); Monocytes Absolute Auto 0.5 X10*3/uL (0.1-1.2); Monocytes Percent Auto 5.7 % (2-11); Neutrophils Absolute Auto 5.4 x10*3/uL (2.0-8.3); Neutrophils Percent Auto 56.3 % (45-73); Platelet Count 279 X10*3/uL (160-400); Red Blood Count 4.74 X10*6/uL (4.20-5.50); Red Cell Distribution Width 13.9 % (11.0-16.0); White Blood Count 9.5 X10*3/uL (4.8-10.8)
[2024-07-03 23:47] LABS: Alanine Aminotransferase 72 U/L (0-31); Albumin Level 3.8 g/dL (3.5-5.0); Alkaline Phosphatase 117 U/L (39-117); Anion Gap 16 (12-20); Aspartate Amino Transferase 88 U/L (5-31); Bilirubin Direct < 0.2 mg/dL (0.0-0.5); Bilirubin Total 0.2 mg/dL (0.0-1.0); Blood Urea Nitrogen 11 mg/dL (9-16); Calcium 8.1 mg/dL (8.4-10.2); Carbon Dioxide 23 mmol/L (22-29); Chloride 101 mmol/L (96-108); Creatinine Clr Calc Pharmacy 90.3; Estimated Glomerular Filt Rate > 60; Ethanol 324 mg/dL; Glucose Random 101 mg/dL (60-115); Magnesium 2.1 mg/dL (1.6-2.6); Potassium 3.7 mmol/L (3.3-5.1); Sodium 136 mmol/L (135-145); Total Protein 7.6 g/dL (6.5-8.0); Troponin-I High Sensitivity < 2.7 ng/L (<3.5-17.0)
[2024-07-04 01:05] LABS: Glucose, Whole Blood 53 mg/dL (60-115)
[2024-07-04 01:05] LABS: Glucose, Whole Blood 83 mg/dL (60-115)
[2024-07-04] MEDS: Dextrose 10 % 250 ML 750 ML IV (01:11)
[2024-07-04 01:32] LABS: Glucose, Whole Blood 119 mg/dL (60-115)
[2024-07-04 02:00] VITALS: BP 155/92; PULSE 82; RESP 16; TEMP 36.6; O2SAT 93
[2024-07-04 02:07] LABS: Glucose, Whole Blood 177 mg/dL (60-115)
[2024-07-04 02:22] LABS: Appearance Urine Clear; Color Urine Yellow; Glucose Urine UA Negative (Negative); Leukocyte Esterase Urine Negative (Negative); Nitrite Urine Negative (Negative); PH 5.5 (5.0-9.0); Specific Gravity - Urine <= 1.005 (1.005-1.025); UMIC TRIGGER UACC YES; Urine Blood Negative (Negative); Urine Ketones Negative (Negative); Urine Protein 300 (3+) mg/dL (Neg-Trace)
[2024-07-04 02:30] LABS: Bacteria Urine None Seen (None Seen); Hyaline Casts Urine 0-2 /LPF (0-2); RBC Urine 0-2 /HPF (0-2); Squamous Epithelial Cell Urine 0-2 /HPF (0-2); WBC Urine 0-5 /HPF (0-5)
[2024-07-04 02:31] LABS: Glucose, Whole Blood 157 mg/dL (60-115)
[2024-07-04 02:36] LABS: Amphetamine Screen Urine Not Detected (Not Detect); Barbiturates, Urine Not Detected (Not Detect); Benzodiazepines Screen Urine Not Detected (Not Detect); Buprenorphine Scr Not Detected (Not Detect); Cannabinoid Screen Urine Not Detected (Not Detect); Cocaine Screen Urine POSITIVE (Not Detect); Fentanyl, urine Not Detected (Not Detect); Methadone Screen, Urine Not Detected (Not Detect); Opiate Screen Urine Not Detected (Not Detect); Oxycodone Screen Urine Not Detected (Not Detect); Phencyclidine Screen Urine Not Detected (Not Detect)
[2024-07-04 04:00] VITALS: BP 121/67; PULSE 76; RESP 16; TEMP 36.5; O2SAT 95
[2024-07-04 04:13] LABS: Glucose, Whole Blood 137 mg/dL (60-115)
[2024-07-04 05:57] VITALS: BP 123/84; PULSE 80; RESP 16; TEMP 36.8; O2SAT 95
[2024-07-04 06:25] VITALS: BP 144/81; PULSE 72; RESP 16; TEMP 36.6; O2SAT 95
== END 2024-07-04 06:31 | disposition home or self-care (01) ==
PROVIDERS: Emergency Medicine; Emergency Provider Internal Medicine
DX: E11.649 Type 2 diabetes mellitus with hypoglycemia without coma (principal); F10.920 Alcohol use, unspecified with intoxication, uncomplicated; Y90.8 Blood alcohol level of 240 mg/100 ml or more; R55 Syncope and collapse; Z79.4 Long term (current) use of insulin; Z96.41 Presence of insulin pump (external) (internal); F17.210 Nicotine dependence, cigarettes, uncomplicated
CPT/HCPCS: 36415; 80048; 80076; 80307; 81001; 82947; 83735; 84484; 85025; 93005; 96365; 99284; 99285

== ENCOUNTER → 2024-07-03 23:05 | Outpatient (BNV) | payer OTHER, SELFPAY | PROVIDERS: Emergency Provider Internal Medicine; Visit Provider Internal Medicine Cardiovascular Disease | DX: R55 Syncope and collapse (principal); R94.31 Abnormal electrocardiogram [ECG] [EKG] | CPT/HCPCS: 93010 ==

== ENCOUNTER 2024-09-04 21:44 | Inpatient (IN) | payer OTHER, SELFPAY ==
[2024-09-04 21:53] VITALS: BP 142/86; PULSE 119; O2SAT 94
[2024-09-04 22:01] VITALS: BP 160/67; PULSE 108; RESP 18; TEMP 36.6; O2SAT 96; BMI 33.3
--- NOTE | 2024-09-04 22:03 | ED_ITS ---
HPI - General Adult General Stated complaint: SI with plans and 3 attempts today alone Time Seen by Provider: 09/04/24 21:49 Source: patient and EMS Mode of arrival: EMS Limitations: other (Anxious, yelling) History of Present Illness ED Provider: Dr. Gris Anne HPI narrative: Patient comes to the emergency room accompanied by EMS and police department. EMS and PD report that patient had multiple suicide attempts today. Patient lives in a motel, and today was her last day of allowed stain. Starting tomorrow she will be homeless, patient's and the patient had been using cocaine and drinking alcohol. Patient's was accepted to a rehab facility. Patient was feeling overwhelmed that she would be by her own and therefore decided to commit suicide. According to EMS/PD, initially the patient tried to drown herself in a bathtub, then patient tried slicing her left forearm with scissors. When EMS and PD got there, as they were trying to help the patient, patient ran away from them, ran into the mark and PD and EMS had to laura her. According to the patient she was trying to head towards a bridge so that she could jump off Related Data Home Medications ?Medication ?Instructions ?Recorded ?Confirmed albuterol sulfate 90 mcg/actuation 2 puff inhalation Q6H PRN wheezing 10/23/23 05/27/24 aerosol inhaler (Ventolin HFA) docusate sodium 100 mg capsule 100 mg PO BID PRN constipation 10/23/23 05/27/24 glucagon 1 mg solution for 1 mg subcut NEEDED PRN 10/23/23 05/27/24 injection (Glucagon Emergency Kit) hypoglycemia insulin lispro 100 unit/mL 0 - 80 unit subcut DAILY 10/23/23 05/27/24 subcutaneous solution ipratropium 0.5 mg-albuterol 3 mg 3 ml inhalation QID PRN wheezing 10/23/23 05/27/24 (2.5 mg base)/3 mL nebulization soln cetirizine 10 mg tablet 10 mg PO DAILY 05/27/24 05/27/24 clonazepam 1 mg tablet 1 mg PO BEDTIME PRN Sleep 05/27/24 05/27/24 duloxetine 20 mg capsule,delayed 40 mg PO DAILY 05/27/24 05/27/24 release fluticasone 500 mcg-salmeterol 50 1 ea inhalation BID 05/27/24 05/27/24 mcg/dose blistr powdr for inhalation (Advair Diskus) fluticasone propionate 50 2 spray intranasal DAILY 05/27/24 05/27/24 mcg/actuation nasal spray,suspension lovastatin 20 mg tablet 20 mg PO DAILY 05/27/24 05/27/24 montelukast 10 mg tablet 10 mg PO DAILY 05/27/24 05/27/24 mupirocin 2 % topical ointment 1 appl topical TID 05/27/24 05/27/24 naltrexone 50 mg tablet 50 mg PO DAILY 05/27/24 05/27/24 nicotine 21 mg/24 hr daily 1 patch transdermal DAILY 05/27/24 05/27/24 transdermal patch trazodone 100 mg tablet 100 mg PO BEDTIME PRN Sleep 05/27/24 05/27/24 valsartan 80 mg tablet 80 mg PO DAILY 05/27/24 05/27/24 Previous Rx's ?Medication ?Instructions ?Recorded sumatriptan succinate 50 mg tablet 50 mg PO DAILY MRX1 PRN migraine 10/29/23 #0 tabs sennosides 8.6 mg capsule (senna) 8.6 mg PO DAILY PRN constipation 12/03/23 #30 caps Allergies Allergy/AdvReac Type Severity Reaction Status Date / Time ibuprofen [IBUPROFEN] Allergy Severe LIGHTHEADED;FEELS Verified 09/04/24 22:05 LIKE CHEST IS CLOSING IN;CLAUSTROPHOBIC Seasonal Allergies Allergy Severe Sneezing Verified 09/04/24 22:05 Review of Systems Review of Systems: Constitutional : No Weight loss, No Fever, No Chills, No Night Sweats, No Fatigue, No Malaise ENT/Mouth : No Hearing loss, No Ear Pain, No Nasal Congestion, No Sinus Pain, No Hoarseness, No sore throat, No Rhinorrhea, No Swallowing Difficulty Eyes: No Eye Pain, No Swelling, No Redness, No Foreign Body, No Discharge, No Vision Changes Cardiovascular : No Chest Pain, No SOB, No Dyspnea on Exertion, No Orthopnea, No Edema, No Palpitations Respiratory : No Cough, No Sputum, No Wheezing, No Smoke Exposure, No Dyspnea Gastrointestinal : No Nausea, No Vomiting, No Diarrhea, No Constipation, No abdominal Pain, No Hematochezia, No Melena Genitourinary : no irregular bleeding, No Dysuria, No Urinary Frequency, No Hematuria, No Urinary Incontinence, No Urgency, No Flank Pain, No Urinary Flow Changes, No Hesitancy Musculoskeletal : No joint pain, No Myalgias, No Joint Swelling Skin : Complaining of a laceration to left forearm Neuro : No Weakness, No Numbness, No Paresthesias, No Loss of Consciousness, No Dizziness, No Headache Psych : Anxiety, depression, suicide events, admits to polysubstance abuse including alcohol and cocaine Heme/Lymph: No Bruising, No Bleeding,No Lymphadenopathy Endocrine : No Polyuria, No Polydipsia, No Temperature Intolerance [facility] Past Medical History Medical History Shoulder pain with history of repair of rotator cuff PTSD (post-traumatic stress disorder) MDD (major depressive disorder), recurrent episode, moderate Opioid use disorder Hypoxia Moderate obesity Hypercapnic respiratory failure, chronic Asthma Drug overdose Diabetes Transaminitis Pneumonia Pneumonia Post-tubal ligation syndrome Drug abuse in remission Asthma Diabetic acetonemia Surgical History H/O tubal ligation H/O colonoscopy Family History Family History Mother Colon cancer Lung cancer Maternal Aunt Lung cancer Social History Social History Household Members: Significant Other Household Members Other:: step children Housing: House Do you presently have visiting nurse or other home services: No Alcohol intake: current Alcohol intake frequency: 3 or more drinks per day Alcohol type: hard liquor Comment: pt does call with help w IV pole when OOB to bathroom Patient Tobacco Use Status: Current everyday Tobacco user Tobacco use type: Cigarette Cigarette Packs Per Day: 1 Cigarettes Per Day: 20 Years Smoked: 20 e-Cigarette/Vaping Use: Never Used Second Hand Smoke Exposure: Yes Substance Use Type: Crack/Cocaine Advance Directives Date on File: 06/07/21 service: No Current occupational status: unemployed Sexual orientation: Straight/Heterosexual Physical Exam ED Const Other: Appearance: Alert. Oriented X3. Screaming, crying Eyes: Pupils equal, round and reactive to light. ENT: Pharynx normal. Neck: Normal inspection. Neck supple. No lymph nodes noted. No crepitus CVS: Normal heart rate and rhythm. Pulses normal. Normal S1 and S2 Respiratory: No respiratory distress. Breath sounds normal. No Wheezing. No rales Abdomen: Soft and nontender. No rigidity. No distention. Skin: Skin warm and dry. Normal skin color. Normal skin turgor. Extremities: No lower extremity edema. No Lacerations. No Rash Neuro: Oriented X 3. No motor deficit. No sensory deficit. Moving all extremities. No slurred speech. CN 2 through 12 grossly intact Psych: Screaming, crying. While her clothes were being search, patient tried to sneak scissors under her in her stretcher Course Course Course Narrative: All of patient's labs pending Patient is on a Section 12 Care team consult pending Patient very agitated, being medicated p.o. with Benadryl 50 mg, Ativan 2 mg and olanzapine 10 mg Medical Decision Making Differential Diagnosis Differential Diagnoses: The differential diagnosis associated with the presentation includes (Anxiety, depression, polysubstance abuse, suicidal attempt) Admission/Observation Consideration of admission/observation: Escalation of care including admission/observation considered (Patient denies Section 12, will likely need inpatient level of care) Discharge Plan Discharge Clinical Impression: Suicide attempt, Laceration of forearm, left Patient Disposition: Still a Patient Prescriptions: No Action (DME) T[employer] System Misc MISCELLANEOUS Rx Instructions: inject up to 80 units per day subcutaneously via pump ipratropium-albuterol 0.5 mg-3 mg(2.5 mg base)/3 mL solution for nebulization 3 ml inhalation QID PRN (Reason: wheezing) docusate sodium 100 mg capsule 100 mg PO BID PRN (Reason: constipation) insulin lispro 100 unit/mL solution 0 - 80 unit subcut DAILY Glucagon Emergency Kit (human) 1 mg recon soln 1 mg subcut NEEDED PRN (Reason: hypoglycemia) albuterol sulfate [Ventolin HFA] 90 mcg/actuation HFA aerosol inhaler 2 puff inhalation Q6H PRN (Reason: wheezing) (DME) Dexcom G6 Sensor Device MISCELLANEOUS Q10D (DME) Dexcom G6 Transmitter Device MISCELLANEOUS sumatriptan succinate 50 mg Tablet 50 mg PO DAILY MRX1 PRN (Reason: migraine) Qty: 0 0RF fluticasone propionate 50 mcg/actuation Ailey,Suspension 2 spray INTRANASAL DAILY Rx Instructions: administer into each nostril trazodone 100 mg Tablet 100 mg PO BEDTIME PRN (Reason: Sleep) duloxetine 20 mg Capsule,Delayed Release(Dr/Ec) 40 mg PO DAILY fluticasone propion-salmeterol [Advair Diskus] 500-50 mcg/dose blister with device 1 ea inhalation BID naltrexone 50 mg Tablet 50 mg PO DAILY valsartan 80 mg Tablet 80 mg PO DAILY nicotine 21 mg/24 hr Patch 24 Hour 1 patch TRANSDERMAL DAILY lovastatin 20 mg Tablet 20 mg PO DAILY cetirizine 10 mg Tablet 10 mg PO DAILY montelukast 10 mg Tablet 10 mg PO DAILY mupirocin 2 % Ointment 1 appl TOPICAL TID Protocol: Apply to: Apply to: right ear rash clonazepam 1 mg Tablet 1 mg PO BEDTIME PRN (Reason: Sleep) Rx Instructions: administer 30 minutes before bedtime cefuroxime axetil 500 mg Tablet 500 mg PO Q12H Qty: 10 0RF senna 8.6 mg capsule 8.6 mg PO DAILY PRN (Reason: constipation) Qty: 30 1RF bisacodyl [Dulcolax (bisacodyl)] 10 mg suppository 10 mg [place] DAILY PRN (Reason: constipation) Qty: 20 2RF Print Language: Salvadorean
[2024-09-04 22:18] LABS: Basophils Percent Auto 0.1 % (0-2); Eosinophils Absolute Auto 0.2 X10*3/uL (0.0-0.4); Hematocrit 41.3 % (37.0-47.0); Hemoglobin 14.5 g/dl (12.0-16.0); Imm Gran Abs Auto 0.03 X10*3/uL (0.00-0.03); Imm Gran Pct Auto 0.3 % (0.0-0.4); Lymphocytes Absolute Auto 3.7 X10*3/uL (1.2-4.9); Lymphocytes Percent Auto 36.1 % (20-40); MANUAL DIFF FLAG NO; Mean Corpuscular HGB Conc 35.1 g/dl (31.0-35.0); Mean Corpuscular Hemoglobin 29.8 pg (27.0-33.0); Mean Platelet Volume 10.5 fL (9.4-12.3); Monocytes Absolute Auto 0.6 X10*3/uL (0.1-1.2); Neutrophils Absolute Auto 5.8 x10*3/uL (2.0-8.3); Neutrophils Percent Auto 55.5 % (45-73); Platelet Count 295 X10*3/uL (160-400); Red Blood Count 4.86 X10*6/uL (4.20-5.50); Red Cell Distribution Width 14.1 % (11.0-16.0); White Blood Count 10.4 X10*3/uL (4.8-10.8)
[2024-09-04] MEDS: LORazepam 2 MG/ML VIAL IM (22:30)
[2024-09-04] MEDS: Haloperidol Lactate 5 MG/ML VIAL IM (22:30)
[2024-09-04] MEDS: diphenhydrAMINE HCL 50 MG/ML VIAL IM (22:30)
[2024-09-04 22:34] LABS: Ethanol 173 mg/dL
[2024-09-04 22:40] LABS: Albumin Level 3.8 g/dL (3.5-5.0); Alkaline Phosphatase 116 U/L (39-117); Anion Gap 17 (12-20); Aspartate Amino Transferase 239 U/L (5-31); Bilirubin Total 0.3 mg/dL (0.0-1.0); Blood Urea Nitrogen 11 mg/dL (9-16); Calcium 8.7 mg/dL (8.4-10.2); Carbon Dioxide 23 mmol/L (22-29); Chloride 103 mmol/L (96-108); Creatinine Clr Calc Pharmacy 81.1; Estimated Glomerular Filt Rate > 60; Glucose Random 151 mg/dL (60-115); Potassium 3.5 mmol/L (3.3-5.1); Sodium 139 mmol/L (135-145); Total Protein 7.5 g/dL (6.5-8.0)
[2024-09-04 22:52] LABS: Alanine Aminotransferase 113 U/L (0-31)
--- NOTE | 2024-09-04 23:07 | PC.NURSE ---
Patient at the time of arrival was mad and agitated over her fiancee action for calling 911 for help. She attempted to call him but couldn't get hold of him. She started pacing and got more agitated attempted to hit her head against the wall, patient requested IM medication for help her sleep, provider notified/ordered/Ativan 2 mg IM, Benadryl 50 mg Im, and Haldol 5 mg IM, accepted them willingly, currently in bed appears sleeping, care consult ordered/pending evaluation, will continue to monitor
--- NOTE | 2024-09-05 06:30 | PC.NURSE ---
Patient slept through the night, no distress observed/reported, pending care team evaluation, no behavior and safety concerns at this time, will continue to monitor
--- NOTE | 2024-09-05 08:48 | MHC.CARE ---
Pt will be an inpatient adult bedsearch
--- NOTE | 2024-09-05 09:54 | ECG_ITS ---
Test Reason : qt check Blood Pressure : */* mmHG Vent. Rate : 87 BPM Atrial Rate : 87 BPM P-R Int : 140 ms QRS Dur : 80 ms QT Int : 366 ms P-R-T Axes : 43 35 54 degrees QTcB Int : 440 ms Normal sinus rhythm Possible Anterior infarct (cited on or before 26-May-2024) Abnormal ECG When compared with ECG of 03-Jul-2024 23:20, No significant change was found Referred By: Gris Anne Electronically Signed By: THEODORE JON MD
--- NOTE | 2024-09-05 11:02 | MHC.EDTECH ---
pt difficult to arrouse when obtaining EKG, had nurse come in for an set of eyes on her, rolled patient over a bit and she woke up, EKG obtained and documented, remains back to sleep at this time
[2024-09-05 11:12] VITALS: BP 110/68; PULSE 103; RESP 20; TEMP 36.2; O2SAT 92
[2024-09-05] MEDS: Valsartan 80 MG TABLET PO (11:22)
[2024-09-05] MEDS: Loratadine 10 MG TABLET PO (11:22)
[2024-09-05] MEDS: DULoxetine HCl 20 MG CAPSULE.DR 40 MG PO (11:22)
[2024-09-05] MEDS: Naltrexone HCl 50 MG TABLET PO (11:22)
[2024-09-05] MEDS: Montelukast Sodium 10 MG TABLET PO (11:22)
--- NOTE | 2024-09-05 11:41 | MHC.EDTECH ---
urine specimen obtained and sent to lab
[2024-09-05 11:56] LABS: Appearance Urine Cloudy; Color Urine Yellow; Glucose Urine UA >=1000 mg/dL (Negative); Leukocyte Esterase Urine Small (1+) (Negative); Nitrite Urine Negative (Negative); PH 5.5 (5.0-9.0); Specific Gravity - Urine >= 1.030 (1.005-1.025); UMIC TRIGGER UA YES; Urine Blood Trace (Negative); Urine Ketones 15 mg/dL (Negative); Urine Protein 30 (1+) mg/dL (Neg-Trace)
[2024-09-05 12:03] LABS: Amphetamine Screen Urine Not Detected (Not Detect); Barbiturates, Urine Not Detected (Not Detect); Benzodiazepines Screen Urine Not Detected (Not Detect); Buprenorphine Scr Not Detected (Not Detect); Cannabinoid Screen Urine Not Detected (Not Detect); Cocaine Screen Urine POSITIVE (Not Detect); Fentanyl, urine Not Detected (Not Detect); Methadone Screen, Urine Not Detected (Not Detect); Opiate Screen Urine Not Detected (Not Detect); Oxycodone Screen Urine Not Detected (Not Detect); Phencyclidine Screen Urine Not Detected (Not Detect)
[2024-09-05 12:12] LABS: Bacteria Urine 4+ (None Seen); Hyaline Casts Urine 0-2 /LPF (0-2); RBC Urine 0-2 /HPF (0-2); Squamous Epithelial Cell Urine 0-2 /HPF (0-2); WBC Urine >50 /HPF (0-5)
--- NOTE | 2024-09-05 13:08 | MHC.EDTECH ---
pt POC taken , shown result of (HIGH) x2
[2024-09-05 13:09] LABS: Glucose, Whole Blood > 600 mg/dL (60-115)
[2024-09-05 13:09] LABS: Glucose, Whole Blood > 600 mg/dL (60-115)
[2024-09-05] MEDS: Insulin Lispro 100 UNIT/ML 3 ML VIAL SUBCUT ×4 (13:23→20:40)
[2024-09-05 14:09] LABS: MANUAL DIFF FLAG NO
--- NOTE | 2024-09-05 14:12 | PC.NURSE ---
pt POC was taken and was found to be HIGH x2 on glucometer. Charge and PA notified. Orders to give 10u subq insulin.
[2024-09-05 14:13] LABS: Basophils Percent Auto 0.1 % (0-2); Eosinophils Absolute Auto 0.1 X10*3/uL (0.0-0.4); Eosinophils Percent Auto 1.3 % (0-4); Hematocrit 41.2 % (37.0-47.0); Hemoglobin 13.9 g/dl (12.0-16.0); Imm Gran Abs Auto 0.02 X10*3/uL (0.00-0.03); Imm Gran Pct Auto 0.3 % (0.0-0.4); Lymphocytes Absolute Auto 1.7 X10*3/uL (1.2-4.9); Lymphocytes Percent Auto 21.2 % (20-40); Mean Corpuscular HGB Conc 33.7 g/dl (31.0-35.0); Mean Corpuscular Hemoglobin 29.4 pg (27.0-33.0); Mean Corpuscular Volume 87.3 fL (80.0-98.0); Mean Platelet Volume 11.6 fL (9.4-12.3); Monocytes Absolute Auto 0.4 X10*3/uL (0.1-1.2); Monocytes Percent Auto 4.6 % (2-11); Neutrophils Absolute Auto 5.7 x10*3/uL (2.0-8.3); Neutrophils Percent Auto 72.5 % (45-73); Platelet Count 224 X10*3/uL (160-400); Red Blood Count 4.72 X10*6/uL (4.20-5.50); Red Cell Distribution Width 13.8 % (11.0-16.0); White Blood Count 7.8 X10*3/uL (4.8-10.8)
--- NOTE | 2024-09-05 14:28 | MHC.EDTECH ---
new POC taken, resulting in (501)
[2024-09-05 14:40] LABS: Alanine Aminotransferase 86 U/L (0-31); Albumin Level 3.2 g/dL (3.5-5.0); Anion Gap 15 (12-20); Aspartate Amino Transferase 139 U/L (5-31); Bilirubin Total 0.4 mg/dL (0.0-1.0); Blood Urea Nitrogen 19 mg/dL (9-16); Calcium 8.5 mg/dL (8.4-10.2); Carbon Dioxide 23 mmol/L (22-29); Chloride 100 mmol/L (96-108); Creatinine Clr Calc Pharmacy 59.3; Estimated Glomerular Filt Rate 58; Glucose Random 676 mg/dL (60-115); Potassium 4.5 mmol/L (3.3-5.1); Sodium 133 mmol/L (135-145); Total Protein 6.4 g/dL (6.5-8.0)
[2024-09-05 14:45] LABS: Glucose, Whole Blood 491 mg/dL (60-115)
[2024-09-05 15:46] LABS: Glucose, Whole Blood 442 mg/dL (60-115)
[2024-09-05 16:51] LABS: Glucose, Whole Blood 356 mg/dL (60-115)
[2024-09-05 17:13] LABS: Alkaline Phosphatase 112 U/L (39-117)
[2024-09-05 18:11] VITALS: BP 134/68; PULSE 68; RESP 16; TEMP 36.2; O2SAT 96
[2024-09-05 18:19] LABS: Glucose, Whole Blood 274 mg/dL (60-115)
[2024-09-05] MEDS: Mupirocin 2 % Oint 22 GM TUBE 1 APPL TOPICAL (20:15)
[2024-09-05 20:17] LABS: Glucose, Whole Blood 274 mg/dL (60-115)
[2024-09-05 22:15] VITALS: BP 121/76; PULSE 90; RESP 16; TEMP 36.3; O2SAT 94
--- NOTE | 2024-09-06 04:49 | PC.ADMIT ---
PT IS A 49 YEAR OLD, FEMALE ADMITTED TO FROM [facility] ED FOR INCREASED DEPRESSION AND SUICIDAL IDEATION WITH A PLAN. SKIN CHECK WAS REMARKABLE FOR TWO DIAGONAL SELF INFLICTED LACERATIONS ON HER LEFT FOREARM. NO SIGNS OF INFECTION AT THIS TIME. PT IS A DIABETIC WITH POC QID. SHE REPORTS NO OTHER MEDICAL CONCERNS. SHE REPORTS THAT SHE HAS BEEN EXPERIENCING INCREASED DEPRESSION AND SI FOR A FEW WEEKS DUE TO CONFLICTS WITH HER FIANCES DAUGHTER WHICH SHE DID NOT WANT TO ELABORATE ON. PT REPORTS GOOD APPETITE AND OKAY SLEEP. SHE DENIES HI, AH OR VH. PT REPORTS THAT SHE HAS HAD AN UNKNOWN AMOUNT OF PSYCHIATRIC ADMISSIONS IN THE PAST. PT RECEIVED HALDOL, BENADRYL, AND ATIVAN IM IN THE ED BUT COULD NOT RECALL WHY. PT REPORTS DRINKING APPROXIMATELY 2 PINTS OF ALCOHOL PER DAY FOR THE PAST FEW WEEKS. NO SIGNS OF ALCOHOL WITHDRAWAL. SHE REPORTS DAILY CRACK COCAINE USE FOR AN UNKNOWN PERIOD OF TIME. SHE DENIES ANY CURRENT SI AND FEELS SAFE ON THE UNIT.
[2024-09-06 08:00] VITALS: BP 163/68; PULSE 81; TEMP 36.1; O2SAT 9
[2024-09-06 08:19] LABS: Glucose, Whole Blood 492 mg/dL (60-115)
[2024-09-06] MEDS: Insulin Lispro 100 UNIT/ML 3 ML VIAL SUBCUT ×5 (08:49→21:04)
[2024-09-06] MEDS: Naltrexone HCl 50 MG TABLET PO (08:50)
[2024-09-06] MEDS: DULoxetine HCl 20 MG CAPSULE.DR 40 MG PO (08:50)
[2024-09-06] MEDS: Valsartan 80 MG TABLET PO (08:51)
[2024-09-06] MEDS: Montelukast Sodium 10 MG TABLET PO (08:51)
[2024-09-06] MEDS: Loratadine 10 MG TABLET PO (08:51)
[2024-09-06] MEDS: Pravastatin Sodium 20 MG TABLET PO (08:51)
--- NOTE | 2024-09-06 08:56 | P.HPPS_ITS ---
HPI Date of Service: 09/06/24 Chief Complaint: SI Sources of Information: patient interviewed and chart reviewed HPI Subjective Notes: [place] Warning and Conditional Voluntary Healthcare Proxy: No Guardianship: No Medical Problems Affecting Mental Status: No Narrative: Jenni is a 49-year-old white, partner heard, mother of a 28-year-old son. This is 1 of many psychiatric/and 5 admissions. She was brought to the emergency room after her partner called the police because of suicidal ideations and some cutting and feelings of hopelessness. They have been living in a motel but there days there had ended. Her partner was admitted to a rehab and she had no place to go. She has had previous cutting episodes but no major suicide attempts. She does have history of daily alcohol use, up to a pt of liquor, crack cocaine and possibly some opiates in the past. She is connected at [facility]. She is on Cymbalta 40 mg. She has no access to firearms. Past Psychiatric History: Past psychiatric admissions but not since 2016 here on [facility]; at that time some question of to whether patient was having manic episodes and bipolar though review of notes seems inconclusive given her history of PTSD and heavy substance abuse at the time Med trials: [place] for brief time; no help Zoloft: No help Celexa Medical Evaluation Reviewed: Yes [facility] Medical History Shoulder pain with history of repair of rotator cuff PTSD (post-traumatic stress disorder) MDD (major depressive disorder), recurrent episode, moderate Opioid use disorder Hypoxia Moderate obesity Hypercapnic respiratory failure, chronic Asthma Drug overdose Diabetes Transaminitis Pneumonia Pneumonia Post-tubal ligation syndrome Drug abuse in remission Asthma Diabetic acetonemia Surgical History H/O tubal ligation H/O colonoscopy Family History: Deferred Social History: Lives with her partner and his 2 adult children Trauma History: Positive trauma history Diagnostics Vital Signs (24Hr): Vital Signs - 24 hr 09/05/24 11:12 09/05/24 18:11 09/05/24 22:15 Temperature 97.1 F 97.2 F 97.4 F Pulse Rate 103 H 68 90 Respiratory Rate 20 16 16 Blood Pressure 110/68 134/68 121/76 Pulse Oximetry 92 96 94 Oxygen Delivery Method Room Air Room Air Room Air 09/06/24 08:00 Temperature 96.9 F Pulse Rate 81 Respiratory Rate Blood Pressure 163/68 H Pulse Oximetry 9 L Oxygen Delivery Method Room Air BMI result Body Mass Index 33.3 Labs 09/05/24 14:02 09/05/24 14:02 Labs: Laboratory Results - last 48 hr 09/04/24 09/05/24 09/05/24 22:12 11:38 13:03 WBC 10.4 RBC 4.86 Hgb 14.5 Hct 41.3 MCV 85.0 MCH 29.8 MCHC 35.1 H RDW 14.1 Plt Count 295 MPV 10.5 Immature Gran % (Auto) 0.3 Neut % (Auto) 55.5 Lymph % (Auto) 36.1 [place] % (Auto) 6.0 Eos % (Auto) 2.0 Baso % (Auto) 0.1 Lymph # (Auto) 3.7 [place] # (Auto) 0.6 Eos # (Auto) 0.2 Baso # (Auto) 0.0 Abs Immat Gran (auto) 0.03 Absolute Neuts (auto) 5.8 Absolute Nucleated RBC 0.000 Nucleated RBC % (auto) 0.0 Sodium 139 Potassium 3.5 Chloride 103 Carbon Dioxide 23 Anion Gap 17 BUN 11 Creatinine 0.74 Estim Creat Clear Calc 81.1 Estimated GFR > 60 POC Glucose > 600 H* Random Glucose 151 H Calcium 8.7 D Total Bilirubin 0.3 AST 239 H ALT 113 H Alkaline Phosphatase 116 Total Protein 7.5 Albumin 3.8 Urine Color Yellow Urine Appearance Cloudy Urine pH 5.5 Ur Specific [place] >= 1.030 H Urine Protein 30 (1+) H Urine Glucose (UA) >=1000 H Urine Ketones 15 Urine Blood Trace H Urine Nitrite Negative Ur Leukocyte Esterase Small (1+) H Urine RBC 0-2 Urine WBC >50 H Ur Squamous Epith Cells 0-2 Urine Bacteria 4+ Hyaline Casts 0-2 Urine Opiates Screen Not Detected Ur Buprenorphine Scrn Not Detected Ur Oxycodone Screen Not Detected Urine Methadone Screen Not Detected Urine Fentanyl Screen Not Detected Ur Barbiturates Screen Not Detected Ur Phencyclidine Scrn Not Detected Ur Amphetamines Screen Not Detected U Benzodiazepines Scrn Not Detected Urine Cocaine Screen POSITIVE H U Marijuana (THC) Screen Not Detected Ethyl Alcohol 173 09/05/24 09/05/24 09/05/24 13:05 14:02 14:27 WBC 7.8 RBC 4.72 Hgb 13.9 Hct 41.2 MCV 87.3 MCH 29.4 MCHC 33.7 RDW 13.8 Plt Count 224 MPV 11.6 Immature Gran % (Auto) 0.3 Neut % (Auto) 72.5 Lymph % (Auto) 21.2 [place] % (Auto) 4.6 Eos % (Auto) 1.3 Baso % (Auto) 0.1 Lymph # (Auto) 1.7 [place] # (Auto) 0.4 Eos # (Auto) 0.1 Baso # (Auto) 0.0 Abs Immat Gran (auto) 0.02 Absolute Neuts (auto) 5.7 Absolute Nucleated RBC 0.000 Nucleated RBC % (auto) 0.0 Sodium 133 L Potassium 4.5 D Chloride 100 Carbon Dioxide 23 Anion Gap 15 BUN 19 H Creatinine 1.01 Estim Creat Clear Calc 59.3 Estimated GFR 58 POC Glucose > 600 H* 491 H* Random Glucose 676 H* Calcium 8.5 Total Bilirubin 0.4 AST 139 H ALT 86 H Alkaline Phosphatase 112 Total Protein 6.4 L Albumin 3.2 L Urine Color Urine Appearance Urine pH Ur Specific [place] Urine Protein Urine Glucose (UA) Urine Ketones Urine Blood Urine Nitrite Ur Leukocyte Esterase Urine RBC Urine WBC Ur Squamous Epith Cells Urine Bacteria Hyaline Casts Urine Opiates Screen Ur Buprenorphine Scrn Ur Oxycodone Screen Urine Methadone Screen Urine Fentanyl Screen Ur Barbiturates Screen Ur Phencyclidine Scrn Ur Amphetamines Screen U Benzodiazepines Scrn Urine Cocaine Screen U Marijuana (THC) Screen Ethyl Alcohol 09/05/24 09/05/24 09/05/24 15:42 16:45 18:15 WBC RBC Hgb Hct MCV MCH MCHC RDW Plt Count MPV Immature Gran % (Auto) Neut % (Auto) Lymph % (Auto) [place] % (Auto) Eos % (Auto) Baso % (Auto) Lymph # (Auto) [place] # (Auto) Eos # (Auto) Baso # (Auto) Abs Immat Gran (auto) Absolute Neuts (auto) Absolute Nucleated RBC Nucleated RBC % (auto) Sodium Potassium Chloride Carbon Dioxide Anion Gap BUN Creatinine Estim Creat Clear Calc Estimated GFR POC Glucose 442 H* 356 H* 274 H Random Glucose Calcium Total Bilirubin AST ALT Alkaline Phosphatase Total Protein Albumin Urine Color Urine Appearance Urine pH Ur Specific [place] Urine Protein Urine Glucose (UA) Urine Ketones Urine Blood Urine Nitrite Ur Leukocyte Esterase Urine RBC Urine WBC Ur Squamous Epith Cells Urine Bacteria Hyaline Casts Urine Opiates Screen Ur Buprenorphine Scrn Ur Oxycodone Screen Urine Methadone Screen Urine Fentanyl Screen Ur Barbiturates Screen Ur Phencyclidine Scrn Ur Amphetamines Screen U Benzodiazepines Scrn Urine Cocaine Screen U Marijuana (THC) Screen Ethyl Alcohol 09/05/24 09/06/24 20:13 08:12 WBC RBC Hgb Hct MCV MCH MCHC RDW Plt Count MPV Immature Gran % (Auto) Neut % (Auto) Lymph % (Auto) [place] % (Auto) Eos % (Auto) Baso % (Auto) Lymph # (Auto) [place] # (Auto) Eos # (Auto) Baso # (Auto) Abs Immat Gran (auto) Absolute Neuts (auto) Absolute Nucleated RBC Nucleated RBC % (auto) Sodium Potassium Chloride Carbon Dioxide Anion Gap BUN Creatinine Estim Creat Clear Calc Estimated GFR POC Glucose 274 H 492 H* Random Glucose Calcium Total Bilirubin AST ALT Alkaline Phosphatase Total Protein Albumin Urine Color Urine Appearance Urine pH Ur Specific [place] Urine Protein Urine Glucose (UA) Urine Ketones Urine Blood Urine Nitrite Ur Leukocyte Esterase Urine RBC Urine WBC Ur Squamous Epith Cells Urine Bacteria Hyaline Casts Urine Opiates Screen Ur Buprenorphine Scrn Ur Oxycodone Screen Urine Methadone Screen Urine Fentanyl Screen Ur Barbiturates Screen Ur Phencyclidine Scrn Ur Amphetamines Screen U Benzodiazepines Scrn Urine Cocaine Screen U Marijuana (THC) Screen Ethyl Alcohol EKG EKG: reviewed Meds/Allergies Meds Home Medications ?Medication ?Instructions ?Recorded ?Confirmed ?Type albuterol sulfate 90 mcg/actuation 2 puff inhalation Q6H PRN wheezing 10/23/23 09/04/24 History aerosol inhaler (Ventolin HFA) docusate sodium 100 mg capsule 100 mg PO BID PRN constipation 10/23/23 09/04/24 History glucagon 1 mg solution for 1 mg subcut NEEDED PRN 10/23/23 09/04/24 History injection (Glucagon Emergency Kit) hypoglycemia insulin lispro 100 unit/mL 0 - 80 unit subcut DAILY 10/23/23 09/04/24 History subcutaneous solution ipratropium 0.5 mg-albuterol 3 mg 3 ml inhalation QID PRN wheezing 10/23/23 09/04/24 History (2.5 mg base)/3 mL nebulization soln cetirizine 10 mg tablet 10 mg PO DAILY 05/27/24 09/04/24 History clonazepam 1 mg tablet 1 mg PO BEDTIME PRN Sleep 05/27/24 09/04/24 History duloxetine 20 mg capsule,delayed 40 mg PO DAILY 05/27/24 09/04/24 History release fluticasone 500 mcg-salmeterol 50 1 ea inhalation BID 05/27/24 09/04/24 History mcg/dose blistr powdr for inhalation (Advair Diskus) fluticasone propionate 50 2 spray intranasal DAILY 05/27/24 09/04/24 History mcg/actuation nasal spray,suspension lovastatin 20 mg tablet 20 mg PO DAILY 05/27/24 09/04/24 History montelukast 10 mg tablet 10 mg PO DAILY 05/27/24 09/04/24 History mupirocin 2 % topical ointment 1 appl topical TID 05/27/24 09/04/24 History naltrexone 50 mg tablet 50 mg PO DAILY 05/27/24 09/04/24 History nicotine 21 mg/24 hr daily 1 patch transdermal DAILY 05/27/24 09/04/24 History transdermal patch trazodone 100 mg tablet 100 mg PO BEDTIME PRN Sleep 05/27/24 09/04/24 History valsartan 80 mg tablet 80 mg PO DAILY 05/27/24 09/04/24 History Allergies Allergies Allergy/AdvReac Type Severity Reaction Status Date / Time ibuprofen [IBUPROFEN] Allergy Severe LIGHTHEADED;FEELS Verified 09/04/24 22:05 LIKE CHEST IS CLOSING IN;CLAUSTROPHOBIC Seasonal Allergies Allergy Severe Sneezing Verified 09/04/24 22:05 Mental Status Exam Mental Status Exam Narrative: Jenni was seen the day after her admission. She is alert, oriented and cooperative. Speech is soft-spoken. Little to no eye contact. Affect is appropriate and subdued. No signs of psychosis. Denies AVH. Denies any current suicidal ideations but admits to having had them yesterday in reaction to her situation with housing. Cognitively is grossly intact. No HI. Is able to move all limbs. No gait abnormalities. Judgment is intact Assessment & Plan Assessment & Plan (1) PTSD (post-traumatic stress disorder): Status: Acute Code(s): F43.10 - Post-traumatic stress disorder, unspecified (2) MDD (major depressive disorder), recurrent episode, moderate: Status: Acute Code(s): F33.1 - Major depressive disorder, recurrent, moderate (3) Alcohol use disorder: Status: Acute Code(s): F10.90 - Alcohol use, unspecified, uncomplicated Plan 49-year-old woman with history of depression, PTSD and polysubstance dependence/abuse. Suicidal ideations and minor attempts in reaction to her current situation with housing and lack of support. Current medication was continued. She was placed on a CIWA protocol/Ativan. Patient educated on: diagnosis, medication risk/benefits and substance abuse Reason for continued inpatient stay Substantial Risk for: harm to self Statement Statement: I have reviewed the history and physical and performed a pertinent examination on my patient. No changes have occurred unless specified. If the History and Physical was not performed prior to admission, the Hospitalist's service will be consulted for completing the admission physical. Time Spent With Patient Time: Total time managing care of this patient today ____ minutes.
[2024-09-06 10:19] LABS: Estimated Average Glucose 220 mg/dL; Hemoglobin A1C 305.9491 umol/L; Hemoglobin A1c % 9.3 % (<6.0); Total Hemoglobin (HGBA1C) 3897.5086 umol/L
--- NOTE | 2024-09-06 11:05 | MHC.RECOVRN ---
Attempted to meet with pt. in room 507-1 following referral received for AUDIT C. Pt in bed asleep. Awoke to voice. Requested T/W return tomorrow. Will F/U
[2024-09-06 12:16] LABS: Glucose, Whole Blood 359 mg/dL (60-115)
[2024-09-06 12:44] LABS: Cholesterol 177 mg/dL (<200); HDL Cholesterol 68 mg/dL (>40); LDL Cholesterol Calculated 87 mg/dL (<100); Triglycerides 110 mg/dL (<150)
[2024-09-06] MEDS: Fluticasone/Vilanterol 200/25 BLST.W.DEV 1 PUFF INHALE (12:49)
[2024-09-06 12:58] LABS: Thyroid Stimulating Hormone 0.41 uIU/mL (0.32-4.0)
[2024-09-06 13:14] LABS: Vitamin B12 760 pg/mL (200-900)
[2024-09-06 13:43] LABS: Alanine Aminotransferase 86 U/L (0-31); Albumin Level 3.4 g/dL (3.5-5.0); Alkaline Phosphatase 120 U/L (39-117); Anion Gap 19 (12-20); Aspartate Amino Transferase 135 U/L (5-31); Bilirubin Total 0.7 mg/dL (0.0-1.0); Blood Urea Nitrogen 27 mg/dL (9-16); Calcium 8.5 mg/dL (8.4-10.2); Carbon Dioxide 21 mmol/L (22-29); Chloride 97 mmol/L (96-108); Creatinine Clr Calc Pharmacy 65.9; Estimated Glomerular Filt Rate > 60; Glucose Random 632 mg/dL (60-115); Potassium 4.7 mmol/L (3.3-5.1); Sodium 132 mmol/L (135-145); Total Protein 7.1 g/dL (6.5-8.0)
--- NOTE | 2024-09-06 14:04 | P.EN_ITS ---
Event Note Date of Service: 09/06/24 Event Note: Pt is a 49-year-old female with a PMH significant for type 1 diabetes who is admitted [facility] with hospitalist consult for diabetes medication management. Pt seen and evaluated in the ED on 09/05/2024 with random glucose noted to be 676. Anion gap closed, no evidence of DKA. The pt reports compliance with home diabetic medications, but recently went on a aponte with drinking alcohol and doing cocaine due to increasing hopelessness due to impendi ng homelessness. Blood glucose management also encountered problems while in the ED when pt was not initially not getting sliding-scale insulin and placed on a regular diet, as well as not receiving any Lantus. Pt previously had an insulin pump until at kept malfunctioning. Pt currently only on regular sliding scale and Lantus 30 mg daily. Plan: Continue sliding scale insulin Lantus 30 units daily Encouraged diabetic diet and snacking Thank you for allowing us to participate in the care of this pt. Will continue to monitor POC is and adjust insulin dosing as necessary. Time Spent With Patient Time: Total time managing care of this patient today ____ minutes.
[2024-09-06] MEDS: Insulin Glargine,Hum.rec.anlog 100 UNIT/ML 10 ML VIAL 30 UNIT SUBCUT (14:16)
[2024-09-06 17:37] LABS: Glucose, Whole Blood 302 mg/dL (60-115)
[2024-09-06 19:43] VITALS: BP 126/62; PULSE 80; RESP 18; TEMP 37.1; O2SAT 94
[2024-09-06 20:32] LABS: Glucose, Whole Blood 270 mg/dL (60-115)
[2024-09-06] MEDS: Mupirocin 2 % Oint 22 GM TUBE 1 APPL TOPICAL (21:05)
[2024-09-06] MEDS: clonazePAM 1 MG TABLET PO (21:06)
[2024-09-06] MEDS: traZODone HCL 100 MG TABLET PO (21:06)
[2024-09-06] MEDS: hydrOXYzine HCL 25 MG TABLET PO (21:06)
[2024-09-07 03:33] VITALS: BP 114/64; PULSE 79; TEMP 36.3; O2SAT 92
[2024-09-07 08:00] VITALS: BP 136/65; PULSE 65; RESP 18; TEMP 35.9; O2SAT 91
[2024-09-07 08:10] LABS: Glucose, Whole Blood 137 mg/dL (60-115)
--- NOTE | 2024-09-07 08:52 | HO.PSYCHPN ---
Subjective Subjective Date of Service: 09/07/24 Reason For Visit: SI Subjective Notes: Conditional Voluntary Interim History: Patient was seen and discussed in rounds today. Records and plans were reviewed. She has settled in on the unit. No signs of withdrawals. We may discontinue the protocols later in the day if that persists. She was seen by the hospitalist for her high blood glucose. Orders have been modified accordingly. No SI. No changes were made today so far Review of Systems Review of Systems Yes all other systems are reviewed and are negative Mental Status Exam Mental Status Exam Narrative: She is drowsy, oriented and cooperative. Speech is soft-spoken. Little to no eye contact. Affect is appropriate and subdued. No signs of psychosis. Denies AVH. Denies any current suicidal ideations but admits to having had them yesterday in reaction to her situation with housing. Cognitively is grossly intact. No HI. Is able to move all limbs. No gait abnormalities. Judgment is intact Diagnostics Vital Signs (24Hr): Vital Signs - 24 hr 09/06/24 08:00 09/06/24 19:43 09/07/24 08:00 Temperature 96.9 F 98.7 F 96.7 F L Pulse Rate 81 80 65 Respiratory Rate 18 18 Blood Pressure 163/68 H 126/62 136/65 Pulse Oximetry 9 L 94 91 L Oxygen Delivery Method Room Air Room Air Room Air BMI result Body Mass Index 33.3 Labs 09/05/24 14:02 09/06/24 09:19 Labs: Laboratory Results - last 48 hr 09/05/24 09/05/24 09/05/24 11:38 13:03 13:05 WBC RBC Hgb Hct MCV MCH MCHC RDW Plt Count MPV Immature Gran % (Auto) Neut % (Auto) Lymph % (Auto) [place] % (Auto) Eos % (Auto) Baso % (Auto) Lymph # (Auto) [place] # (Auto) Eos # (Auto) Baso # (Auto) Abs Immat Gran (auto) Absolute Neuts (auto) Absolute Nucleated RBC Nucleated RBC % (auto) Sodium Potassium Chloride Carbon Dioxide Anion Gap BUN Creatinine Estim Creat Clear Calc Estimated GFR POC Glucose > 600 H* > 600 H* Random Glucose Estimat Average Glucose Hemoglobin A1c % Calcium Total Bilirubin AST ALT Alkaline Phosphatase Total Protein Albumin Triglycerides Cholesterol LDL Cholesterol, Calc HDL Cholesterol Vitamin B12 Folate TSH Urine Color Yellow Urine Appearance Cloudy Urine pH 5.5 Ur Specific [place] >= 1.030 H Urine Protein 30 (1+) H Urine Glucose (UA) >=1000 H Urine Ketones 15 Urine Blood Trace H Urine Nitrite Negative Ur Leukocyte Esterase Small (1+) H Urine RBC 0-2 Urine WBC >50 H Ur Squamous Epith Cells 0-2 Urine Bacteria 4+ Hyaline Casts 0-2 Urine Opiates Screen Not Detected Ur Buprenorphine Scrn Not Detected Ur Oxycodone Screen Not Detected Urine Methadone Screen Not Detected Urine Fentanyl Screen Not Detected Ur Barbiturates Screen Not Detected Ur Phencyclidine Scrn Not Detected Ur Amphetamines Screen Not Detected U Benzodiazepines Scrn Not Detected Urine Cocaine Screen POSITIVE H U Marijuana (THC) Screen Not Detected 09/05/24 09/05/24 09/05/24 14:02 14:27 15:42 WBC 7.8 RBC 4.72 Hgb 13.9 Hct 41.2 MCV 87.3 MCH 29.4 MCHC 33.7 RDW 13.8 Plt Count 224 MPV 11.6 Immature Gran % (Auto) 0.3 Neut % (Auto) 72.5 Lymph % (Auto) 21.2 [place] % (Auto) 4.6 Eos % (Auto) 1.3 Baso % (Auto) 0.1 Lymph # (Auto) 1.7 [place] # (Auto) 0.4 Eos # (Auto) 0.1 Baso # (Auto) 0.0 Abs Immat Gran (auto) 0.02 Absolute Neuts (auto) 5.7 Absolute Nucleated RBC 0.000 Nucleated RBC % (auto) 0.0 Sodium 133 L Potassium 4.5 D Chloride 100 Carbon Dioxide 23 Anion Gap 15 BUN 19 H Creatinine 1.01 Estim Creat Clear Calc 59.3 Estimated GFR 58 POC Glucose 491 H* 442 H* Random Glucose 676 H* Estimat Average Glucose Hemoglobin A1c % Calcium 8.5 Total Bilirubin 0.4 AST 139 H ALT 86 H Alkaline Phosphatase 112 Total Protein 6.4 L Albumin 3.2 L Triglycerides Cholesterol LDL Cholesterol, Calc HDL Cholesterol Vitamin B12 Folate TSH Urine Color Urine Appearance Urine pH Ur Specific [place] Urine Protein Urine Glucose (UA) Urine Ketones Urine Blood Urine Nitrite Ur Leukocyte Esterase Urine RBC Urine WBC Ur Squamous Epith Cells Urine Bacteria Hyaline Casts Urine Opiates Screen Ur Buprenorphine Scrn Ur Oxycodone Screen Urine Methadone Screen Urine Fentanyl Screen Ur Barbiturates Screen Ur Phencyclidine Scrn Ur Amphetamines Screen U Benzodiazepines Scrn Urine Cocaine Screen U Marijuana (THC) Screen 09/05/24 09/05/24 09/05/24 16:45 18:15 20:13 WBC RBC Hgb Hct MCV MCH MCHC RDW Plt Count MPV Immature Gran % (Auto) Neut % (Auto) Lymph % (Auto) [place] % (Auto) Eos % (Auto) Baso % (Auto) Lymph # (Auto) [place] # (Auto) Eos # (Auto) Baso # (Auto) Abs Immat Gran (auto) Absolute Neuts (auto) Absolute Nucleated RBC Nucleated RBC % (auto) Sodium Potassium Chloride Carbon Dioxide Anion Gap BUN Creatinine Estim Creat Clear Calc Estimated GFR POC Glucose 356 H* 274 H 274 H Random Glucose Estimat Average Glucose Hemoglobin A1c % Calcium Total Bilirubin AST ALT Alkaline Phosphatase Total Protein Albumin Triglycerides Cholesterol LDL Cholesterol, Calc HDL Cholesterol Vitamin B12 Folate TSH Urine Color Urine Appearance Urine pH Ur Specific [place] Urine Protein Urine Glucose (UA) Urine Ketones Urine Blood Urine Nitrite Ur Leukocyte Esterase Urine RBC Urine WBC Ur Squamous Epith Cells Urine Bacteria Hyaline Casts Urine Opiates Screen Ur Buprenorphine Scrn Ur Oxycodone Screen Urine Methadone Screen Urine Fentanyl Screen Ur Barbiturates Screen Ur Phencyclidine Scrn Ur Amphetamines Screen U Benzodiazepines Scrn Urine Cocaine Screen U Marijuana (THC) Screen 09/06/24 09/06/24 09/06/24 08:12 09:19 12:08 WBC RBC Hgb Hct MCV MCH MCHC RDW Plt Count MPV Immature Gran % (Auto) Neut % (Auto) Lymph % (Auto) [place] % (Auto) Eos % (Auto) Baso % (Auto) Lymph # (Auto) [place] # (Auto) Eos # (Auto) Baso # (Auto) Abs Immat Gran (auto) Absolute Neuts (auto) Absolute Nucleated RBC Nucleated RBC % (auto) Sodium 132 L Potassium 4.7 Chloride 97 Carbon Dioxide 21 L Anion Gap 19 BUN 27 H Creatinine 0.91 Estim Creat Clear Calc 65.9 Estimated GFR > 60 POC Glucose 492 H* 359 H* Random Glucose 632 H* Estimat Average Glucose 220 Hemoglobin A1c % 9.3 H Calcium 8.5 Total Bilirubin 0.7 AST 135 H ALT 86 H Alkaline Phosphatase 120 H Total Protein 7.1 Albumin 3.4 L Triglycerides 110 Cholesterol 177 LDL Cholesterol, Calc 87 HDL Cholesterol 68 Vitamin B12 760 Folate 6.0 TSH 0.41 Urine Color Urine Appearance Urine pH Ur Specific [place] Urine Protein Urine Glucose (UA) Urine Ketones Urine Blood Urine Nitrite Ur Leukocyte Esterase Urine RBC Urine WBC Ur Squamous Epith Cells Urine Bacteria Hyaline Casts Urine Opiates Screen Ur Buprenorphine Scrn Ur Oxycodone Screen Urine Methadone Screen Urine Fentanyl Screen Ur Barbiturates Screen Ur Phencyclidine Scrn Ur Amphetamines Screen U Benzodiazepines Scrn Urine Cocaine Screen U Marijuana (THC) Screen 09/06/24 09/06/24 09/07/24 17:27 20:25 08:00 WBC RBC Hgb Hct MCV MCH MCHC RDW Plt Count MPV Immature Gran % (Auto) Neut % (Auto) Lymph % (Auto) [place] % (Auto) Eos % (Auto) Baso % (Auto) Lymph # (Auto) [place] # (Auto) Eos # (Auto) Baso # (Auto) Abs Immat Gran (auto) Absolute Neuts (auto) Absolute Nucleated RBC Nucleated RBC % (auto) Sodium Potassium Chloride Carbon Dioxide Anion Gap BUN Creatinine Estim Creat Clear Calc Estimated GFR POC Glucose 302 H 270 H 137 H Random Glucose Estimat Average Glucose Hemoglobin A1c % Calcium Total Bilirubin AST ALT Alkaline Phosphatase Total Protein Albumin Triglycerides Cholesterol LDL Cholesterol, Calc HDL Cholesterol Vitamin B12 Folate TSH Urine Color Urine Appearance Urine pH Ur Specific [place] Urine Protein Urine Glucose (UA) Urine Ketones Urine Blood Urine Nitrite Ur Leukocyte Esterase Urine RBC Urine WBC Ur Squamous Epith Cells Urine Bacteria Hyaline Casts Urine Opiates Screen Ur Buprenorphine Scrn Ur Oxycodone Screen Urine Methadone Screen Urine Fentanyl Screen Ur Barbiturates Screen Ur Phencyclidine Scrn Ur Amphetamines Screen U Benzodiazepines Scrn Urine Cocaine Screen U Marijuana (THC) Screen Medications Medications Current Medications Acetaminophen (Acetaminophen 325 Mg Tablet) 650 mg PO Q6H PRN PRN Reason: Headache/Pain, Scale 1-10 Al Hydroxide/Mg Hydroxide (Magnesium Hydrox/Alum Hydrox 30 Ml Oral.Susp) 30 ml PO Q6H PRN PRN Reason: Heartburn/Nausea Albuterol Sulfate (Albuterol Sulfate 90 Mcg 8 Gm Inhaler) 2 puff INHALE Q6H PRN PRN Reason: wheezing Albuterol/Ipratropium (Albuterol/Iprat 2.5/0.5mg 3 Ml Ampul.Neb) 3 ml INHALE QID PRN PRN Reason: wheezing Clonazepam (Clonazepam 1 Mg Tablet) 1 mg PO BEDTIME PRN PRN Reason: Sleep Last Admin: 09/06/24 21:06 Dose: 1 mg Dextrose (Dextrose 50 % 25 Gm/50 Ml Syringe) 25 gm IVPUSH Q15M PRN; Protocol PRN Reason: per Hypoglycemia Standing Ord. Docusate Sodium (Docusate Sodium 100 Mg Capsule) 100 mg PO BID PRN PRN Reason: constipation Duloxetine HCl (Duloxetine Hcl 20 Mg Capsule.Dr) 40 mg PO DAILY [facility] Last Admin: 09/06/24 08:50 Dose: 40 mg Fluticasone Propionate (Fluticasone Propionate Nasal 16 Gm [place]) 2 spray NOSTRIL-B DAILY [facility] Last Admin: 09/06/24 12:58 Dose: Not Given Fluticasone/Vilanterol (Fluticasone/Vilanterol 200/25 Blst.W.Dev) 1 puff INHALE RDAILY [facility] Last Admin: 09/06/24 12:49 Dose: 1 puff Glucagon (Glucagon Hcl 1 Mg Vial) 1 mg SUBCUT ONCE PRN PRN Reason: NEEDED FOR HYPOGLYCERMIA Glucose (Glucose Gel 15 Gm Gel..Gram.) 15 gm PO Q15M PRN; Protocol PRN Reason: per Hypoglycemia Standing Ord. Hydroxyzine HCl (Hydroxyzine Hcl 25 Mg Tablet) 25 mg PO Q6H PRN PRN Reason: mild anxiety Last Admin: 09/06/24 21:06 Dose: 25 mg Insulin Glargine (Insulin Glargine,Hum.Rec.Anlog 100 Unit/Ml 10 Ml Vial) 30 unit SUBCUT DAILY [facility] Last Admin: 09/06/24 14:16 Dose: 30 unit Insulin Human Lispro (Insulin Lispro 100 Unit/Ml 3 Ml Vial) 0 unit SUBCUT QIDACHS [facility]; Protocol Last Admin: 09/06/24 21:04 Dose: 6 unit Loratadine (Loratadine 10 Mg Tablet) 10 mg PO DAILY [facility] Last Admin: 09/06/24 08:51 Dose: 10 mg Lorazepam (Lorazepam 1 Mg Tablet) 1 mg PO Q4H PRN PRN Reason: Alcohol Withdrawal Lorazepam (Lorazepam 1 Mg Tablet) 2 mg PO Q2H PRN PRN Reason: Alcohol Withdrawal Lorazepam (Lorazepam 1 Mg Tablet) 3 mg PO Q2H PRN PRN Reason: Alcohol Withdrawal Magnesium Hydroxide (Milk Of Magnesia 30 Ml Oral.Susp) 30 ml PO DAILY PRN PRN Reason: Constipation Montelukast Sodium (Montelukast Sodium 10 Mg Tablet) 10 mg PO DAILY [facility] Last Admin: 09/06/24 08:51 Dose: 10 mg Mupirocin (Mupirocin 2 % Oint 22 Gm Tube) 1 appl TOPICAL TID [facility]; Protocol Last Admin: 09/06/24 21:05 Dose: 1 appl Naltrexone HCl (Naltrexone Hcl 50 Mg Tablet) 50 mg PO DAILY [facility] Last Admin: 09/06/24 08:50 Dose: 50 mg Nicotine (Nicotine 21 Mg Patch.Td24) 21 mg TRANSDERMA DAILY [facility] Last Admin: 09/06/24 10:08 Dose: Not Given Nicotine (Nicotine 14 Mg Patch.Td24) 14 mg TRANSDERMA DAILY PRN PRN Reason: nicotine cravings Pravastatin Sodium (Pravastatin Sodium 20 Mg Tablet) 20 mg PO DAILY [facility] Last Admin: 09/06/24 08:51 Dose: 20 mg Senna (Sennosides 8.6 Mg Tablet) 8.6 mg PO DAILY PRN PRN Reason: constipation Sumatriptan Succinate (Sumatriptan Succinate 50 Mg Tablet) 50 mg PO DAILY MRX1 PRN PRN Reason: migraine Trazodone HCl (Trazodone Hcl 100 Mg Tablet) 100 mg PO BEDTIME PRN PRN Reason: Sleep Last Admin: 09/06/24 21:06 Dose: 100 mg Trazodone HCl (Trazodone Hcl 50 Mg Tablet) 50 mg PO BEDTIME MRX1 PRN PRN Reason: Insomnia Valsartan (Valsartan 80 Mg Tablet) 80 mg PO DAILY [facility]; Protocol Last Admin: 09/06/24 08:51 Dose: 80 mg Allergies Allergies Allergy/AdvReac Type Severity Reaction Status Date / Time ibuprofen [IBUPROFEN] Allergy Severe LIGHTHEADED;FEELS Verified 09/04/24 22:05 LIKE CHEST IS CLOSING IN;CLAUSTROPHOBIC Seasonal Allergies Allergy Severe Sneezing Verified 09/04/24 22:05 Assessment & Plan Assessment & Plan (1) PTSD (post-traumatic stress disorder): Status: Acute Code(s): F43.10 - Post-traumatic stress disorder, unspecified (2) MDD (major depressive disorder), recurrent episode, moderate: Status: Acute Code(s): F33.1 - Major depressive disorder, recurrent, moderate (3) Alcohol use disorder: Status: Acute Code(s): F10.90 - Alcohol use, unspecified, uncomplicated Plan 49-year-old woman with history of depression, PTSD and polysubstance dependence/abuse. Suicidal ideations and minor attempts in reaction to her current situation with housing and lack of support. Current medication was continued. She was placed on a CIWA protocol/Ativan. 09/07: Continue current regimen and plans Reason for continued inpatient stay Substantial Risk for: med/psych decompensation Time Spent With Patient Time: Total time managing care of this patient today ____ minutes.
[2024-09-07] MEDS: Pravastatin Sodium 20 MG TABLET PO (09:00)
[2024-09-07 09:02] VITALS: BP 136/65
[2024-09-07] MEDS: Valsartan 80 MG TABLET PO (09:02)
[2024-09-07] MEDS: Loratadine 10 MG TABLET PO (09:02)
[2024-09-07] MEDS: Fluticasone/Vilanterol 200/25 BLST.W.DEV 1 PUFF INHALE (09:02)
[2024-09-07] MEDS: Montelukast Sodium 10 MG TABLET PO (09:02)
[2024-09-07] MEDS: Naltrexone HCl 50 MG TABLET PO (09:03)
[2024-09-07] MEDS: Insulin Glargine,Hum.rec.anlog 100 UNIT/ML 10 ML VIAL 30 UNIT SUBCUT (09:03)
[2024-09-07] MEDS: DULoxetine HCl 20 MG CAPSULE.DR 40 MG PO (09:03)
--- NOTE | 2024-09-07 10:58 | MHC.RECOVRN ---
AUDIT-C Brief Intervention Pt had positive screen for unhealthy alcohol use on admission, subsequently met with t/w to discuss alcohol use and recovery supports/options. This content writer met with patient to discuss current alcohol use and concerns related to increased risk of alcohol related problems.? Pt reports drinking a lot for a long time . Discussed how alcohol use has impacted health, including negative impact on health including elevated blood sugars. Withdrawal History: None reported Treatment History:None reported Supports:?Pt reports she is unhoused and is living in her car. Did not identify any support systems. Discussed risk reduction strategies including drinking below the recommended limit. Provided pt with written resources including information on inpatient and outpatient treatment, DOROTHEA, harm reduction, and recovery coaching. Pt plans to consider DOROTHEA. Pt provided with t/w contact information if questions or concerns arise. Denies other questions or concerns at this time. T/W gave report to [facility] team for f/u tomorrow r/t decision on DOROTHEA
[2024-09-07 12:18] LABS: Glucose, Whole Blood 425 mg/dL (60-115)
[2024-09-07] MEDS: Insulin Lispro 100 UNIT/ML 3 ML VIAL SUBCUT ×3 (12:27→21:18)
[2024-09-07 14:00] LABS: Glucose, Whole Blood 417 mg/dL (60-115)
[2024-09-07] MEDS: LORazepam 1 MG TABLET PO ×2 (14:28→21:18)
[2024-09-07] MEDS: Mupirocin 2 % Oint 22 GM TUBE 1 APPL TOPICAL ×2 (14:33→21:08)
--- NOTE | 2024-09-07 14:45 | PC.NURSE ---
Pt POC blood sugar 425 @12:20, hospitalist notified-sliding scale adjusted at this time, 14 units administered. Blood sugar rechecked @ 14:19, 417, hospitalist notifed- no additional orders at this time.
[2024-09-07 15:11] LABS: Influenza A PCR NEGATIVE (Negative); Influenza B PCR NEGATIVE (Negative); Resp Syncy Virus RNA Qual PCR NEGATIVE (Negative); SARS COV2 PCR INHOUSE NEGATIVE (Negative)
[2024-09-07 17:10] LABS: Glucose, Whole Blood 221 mg/dL (60-115)
[2024-09-07 20:00] VITALS: BP 131/67; PULSE 86; TEMP 36.5; O2SAT 95
[2024-09-07 21:03] LABS: Glucose, Whole Blood 494 mg/dL (60-115)
[2024-09-07] MEDS: SUMAtriptan succinate 50 MG TABLET PO (21:17)
[2024-09-07] MEDS: traZODone HCL 100 MG TABLET PO (21:18)
[2024-09-08 00:41] LABS: Glucose, Whole Blood 239 mg/dL (60-115)
[2024-09-08 03:37] LABS: Glucose, Whole Blood 216 mg/dL (60-115)
--- NOTE | 2024-09-08 07:03 | PC.NURSE ---
Pt had a POC BS of 494 at 2057. Pt rcvd Lispro 14 units as per Sliding Scale. Dr. Smith informed at 2028 and requested POC BS recheck in 2-3 hours. POC BS 239 at 0033, and 216 at 0332. Pt had no additional orders.
[2024-09-08 08:00] VITALS: BP 135/78; PULSE 66; RESP 18; TEMP 37.2; O2SAT 92
[2024-09-08 08:08] LABS: Glucose, Whole Blood 241 mg/dL (60-115)
--- NOTE | 2024-09-08 08:14 | MHC.RECOVRN ---
Pt met with [facility] over the weekend. Pt had reported some interest in DOROTHEA. Upon chart review, pt receiving 50 mg naltrexone daily. Pt to continue DOROTHEA.
[2024-09-08] MEDS: Insulin Glargine,Hum.rec.anlog 100 UNIT/ML 10 ML VIAL 30 UNIT SUBCUT (08:23)
[2024-09-08] MEDS: Insulin Lispro 100 UNIT/ML 3 ML VIAL SUBCUT ×4 (08:24→21:07)
[2024-09-08 08:26] VITALS: BP 135/78
[2024-09-08] MEDS: Loratadine 10 MG TABLET PO (08:26)
[2024-09-08] MEDS: Montelukast Sodium 10 MG TABLET PO (08:26)
[2024-09-08] MEDS: Pravastatin Sodium 20 MG TABLET PO (08:26)
[2024-09-08] MEDS: Valsartan 80 MG TABLET PO (08:26)
[2024-09-08] MEDS: Naltrexone HCl 50 MG TABLET PO (08:27)
[2024-09-08] MEDS: DULoxetine HCl 20 MG CAPSULE.DR 40 MG PO (08:27)
[2024-09-08] MEDS: Fluticasone Propionate Nasal 16 GM SPRAY 2 SPRAY NOSTRIL-B (08:31)
[2024-09-08] MEDS: Fluticasone/Vilanterol 200/25 BLST.W.DEV 1 PUFF INHALE (08:31)
[2024-09-08] MEDS: Mupirocin 2 % Oint 22 GM TUBE 1 APPL TOPICAL ×3 (08:31→21:10)
[2024-09-08] MEDS: Albuterol Sulfate 90 MCG 8 GM INHALER 2 PUFF INHALE (08:31)
[2024-09-08] MEDS: LORazepam 1 MG TABLET PO ×2 (09:10→12:43)
--- NOTE | 2024-09-08 11:02 | P.PNPSI_ITS ---
Subjective Subjective Date of Service: 09/08/24 Reason For Visit: SI Subjective Notes: Conditional Voluntary Healthcare Proxy: No Guardianship: No Medical Problems Affecting Mental Status: No Interim History: Jenni described precipitants to admission. She and her fiafshine had been living with his daughter and the past 1.5 years have become more stressful-daughter became and had her boyfriend move into the home. Pt's relationship with matt's daughter started to deteriorate after this. Daughter asked them to leave 07/14/24. Since that time both have been living in a car. They have been unable to secure an apartment. 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 I wanted to . Reports 3 pints vodka/day after being sober/clean for 1 year. States she has no family resources. She does have a son in [place] who is however she has minimal contact. Describes depression as being present all of her life. Denies hx of naveen, psychosis, however, anxiety is a symptom she has struggled with. Medication Compliance: Yes Side effects from medications: No Attending Groups: Intermittent Review of Systems DM is in poor control. Review of Systems Review of Systems Poorly controlled DM Mental Status Exam Mental Status Exam Patient Appearance: Fatigued Patient Orientation: Person, Place, Time and Situation Level of Consciousness: Alert Patient Behavior: Appropriate, Talkative, Cooperative and Good Eye Contact Mood Description: Depressed Affect Description: Flat Patient Cognition Impaired: No Ability to Follow Directions: Good Speech Pattern: Spontaneous Speech Memory Description: Intact Hallucinations: None Delusions: Not Present Thought Process: Rumination Thought Content: positive for Perseveration and positive for Suicidal Ideation Depressive Symptoms: Thoughts of /Suicide Judgement: Fair Diagnostics Vital Signs (24Hr): Vital Signs - 24 hr 09/07/24 20:00 09/08/24 08:00 09/08/24 08:26 Temperature 97.7 F 98.9 F Pulse Rate 86 66 Respiratory Rate 18 Blood Pressure 131/67 135/78 135/78 Pulse Oximetry 95 92 Oxygen Delivery Method Room Air Room Air BMI result Body Mass Index 33.3 Labs 09/05/24 14:02 09/06/24 09:19 Labs: Laboratory Results - last 48 hr 09/06/24 09/06/24 09/06/24 09:19 12:08 17:27 Sodium 132 L Potassium 4.7 Chloride 97 Carbon Dioxide 21 L Anion Gap 19 BUN 27 H Creatinine 0.91 Estim Creat Clear Calc 65.9 Estimated GFR > 60 POC Glucose 359 H* 302 H Random Glucose 632 H* Estimat Average Glucose 220 Hemoglobin A1c % 9.3 H Calcium 8.5 Total Bilirubin 0.7 AST 135 H ALT 86 H Alkaline Phosphatase 120 H Total Protein 7.1 Albumin 3.4 L Triglycerides 110 Cholesterol 177 LDL Cholesterol, Calc 87 HDL Cholesterol 68 Vitamin B12 760 Folate 6.0 TSH 0.41 Influenza Type A (PCR) Influenza Type B (PCR) RSV RNA Qual (PCR) SARS-CoV-2 RNA (RT-PCR) 09/06/24 09/07/24 09/07/24 20:25 08:00 12:10 Sodium Potassium Chloride Carbon Dioxide Anion Gap BUN Creatinine Estim Creat Clear Calc Estimated GFR POC Glucose 270 H 137 H 425 H* Random Glucose Estimat Average Glucose Hemoglobin A1c % Calcium Total Bilirubin AST ALT Alkaline Phosphatase Total Protein Albumin Triglycerides Cholesterol LDL Cholesterol, Calc HDL Cholesterol Vitamin B12 Folate TSH Influenza Type A (PCR) Influenza Type B (PCR) RSV RNA Qual (PCR) SARS-CoV-2 RNA (RT-PCR) 09/07/24 09/07/24 09/07/24 13:56 14:27 17:03 Sodium Potassium Chloride Carbon Dioxide Anion Gap BUN Creatinine Estim Creat Clear Calc Estimated GFR POC Glucose 417 H* 221 H Random Glucose Estimat Average Glucose Hemoglobin A1c % Calcium Total Bilirubin AST ALT Alkaline Phosphatase Total Protein Albumin Triglycerides Cholesterol LDL Cholesterol, Calc HDL Cholesterol Vitamin B12 Folate TSH Influenza Type A (PCR) NEGATIVE Influenza Type B (PCR) NEGATIVE RSV RNA Qual (PCR) NEGATIVE SARS-CoV-2 RNA (RT-PCR) NEGATIVE 09/07/24 09/08/24 09/08/24 20:58 00:33 03:32 Sodium Potassium Chloride Carbon Dioxide Anion Gap BUN Creatinine Estim Creat Clear Calc Estimated GFR POC Glucose 494 H* 239 H 216 H Random Glucose Estimat Average Glucose Hemoglobin A1c % Calcium Total Bilirubin AST ALT Alkaline Phosphatase Total Protein Albumin Triglycerides Cholesterol LDL Cholesterol, Calc HDL Cholesterol Vitamin B12 Folate TSH Influenza Type A (PCR) Influenza Type B (PCR) RSV RNA Qual (PCR) SARS-CoV-2 RNA (RT-PCR) 09/08/24 08:02 Sodium Potassium Chloride Carbon Dioxide Anion Gap BUN Creatinine Estim Creat Clear Calc Estimated GFR POC Glucose 241 H Random Glucose Estimat Average Glucose Hemoglobin A1c % Calcium Total Bilirubin AST ALT Alkaline Phosphatase Total Protein Albumin Triglycerides Cholesterol LDL Cholesterol, Calc HDL Cholesterol Vitamin B12 Folate TSH Influenza Type A (PCR) Influenza Type B (PCR) RSV RNA Qual (PCR) SARS-CoV-2 RNA (RT-PCR) Medications Medications Current Medications Acetaminophen (Acetaminophen 325 Mg Tablet) 650 mg PO Q6H PRN PRN Reason: Headache/Pain, Scale 1-10 Al Hydroxide/Mg Hydroxide (Magnesium Hydrox/Alum Hydrox 30 Ml Oral.Susp) 30 ml PO Q6H PRN PRN Reason: Heartburn/Nausea Albuterol Sulfate (Albuterol Sulfate 90 Mcg 8 Gm Inhaler) 2 puff INHALE Q6H PRN PRN Reason: wheezing Last Admin: 09/08/24 08:31 Dose: 2 puff Albuterol/Ipratropium (Albuterol/Iprat 2.5/0.5mg 3 Ml Ampul.Neb) 3 ml INHALE QID PRN PRN Reason: wheezing Clonazepam (Clonazepam 1 Mg Tablet) 1 mg PO BEDTIME PRN PRN Reason: Sleep Last Admin: 09/06/24 21:06 Dose: 1 mg Dextrose (Dextrose 50 % 25 Gm/50 Ml Syringe) 25 gm IVPUSH Q15M PRN; Protocol PRN Reason: per Hypoglycemia Standing Ord. Docusate Sodium (Docusate Sodium 100 Mg Capsule) 100 mg PO BID PRN PRN Reason: constipation Duloxetine HCl (Duloxetine Hcl 20 Mg Capsule.Dr) 40 mg PO DAILY [facility] Last Admin: 09/08/24 08:27 Dose: 40 mg Fluticasone Propionate (Fluticasone Propionate Nasal 16 Gm [place]) 2 spray NOSTRIL-B DAILY [facility] Last Admin: 09/08/24 08:31 Dose: 2 spray Fluticasone/Vilanterol (Fluticasone/Vilanterol 200/25 Blst.W.Dev) 1 puff INHALE RDAILY [facility] Last Admin: 09/08/24 08:31 Dose: 1 puff Glucagon (Glucagon Hcl 1 Mg Vial) 1 mg SUBCUT ONCE PRN PRN Reason: NEEDED FOR HYPOGLYCERMIA Glucose (Glucose Gel 15 Gm Gel..Gram.) 15 gm PO Q15M PRN; Protocol PRN Reason: per Hypoglycemia Standing Ord. Hydroxyzine HCl (Hydroxyzine Hcl 25 Mg Tablet) 25 mg PO Q6H PRN PRN Reason: mild anxiety Last Admin: 09/06/24 21:06 Dose: 25 mg Insulin Glargine (Insulin Glargine,Hum.Rec.Anlog 100 Unit/Ml 10 Ml Vial) 30 unit SUBCUT DAILY [facility] Last Admin: 09/08/24 08:23 Dose: 30 unit Insulin Human Lispro (Insulin Lispro 100 Unit/Ml 3 Ml Vial) 0 unit SUBCUT QIDACHS [facility]; Protocol Last Admin: 09/08/24 08:24 Dose: 4 unit Loratadine (Loratadine 10 Mg Tablet) 10 mg PO DAILY [facility] Last Admin: 09/08/24 08:26 Dose: 10 mg Lorazepam (Lorazepam 1 Mg Tablet) 1 mg PO Q4H PRN PRN Reason: Alcohol Withdrawal Last Admin: 09/08/24 09:10 Dose: 1 mg Lorazepam (Lorazepam 1 Mg Tablet) 2 mg PO Q2H PRN PRN Reason: Alcohol Withdrawal Lorazepam (Lorazepam 1 Mg Tablet) 3 mg PO Q2H PRN PRN Reason: Alcohol Withdrawal Magnesium Hydroxide (Milk Of Magnesia 30 Ml Oral.Susp) 30 ml PO DAILY PRN PRN Reason: Constipation Montelukast Sodium (Montelukast Sodium 10 Mg Tablet) 10 mg PO DAILY [facility] Last Admin: 09/08/24 08:26 Dose: 10 mg Mupirocin (Mupirocin 2 % Oint 22 Gm Tube) 1 appl TOPICAL TID [facility]; Protocol Last Admin: 09/08/24 08:31 Dose: 1 appl Naltrexone HCl (Naltrexone Hcl 50 Mg Tablet) 50 mg PO DAILY [facility] Last Admin: 09/08/24 08:27 Dose: 50 mg Nicotine (Nicotine 21 Mg Patch.Td24) 21 mg TRANSDERMA DAILY [facility] Last Admin: 09/08/24 08:28 Dose: Not Given Nicotine (Nicotine 14 Mg Patch.Td24) 14 mg TRANSDERMA DAILY PRN PRN Reason: nicotine cravings Pravastatin Sodium (Pravastatin Sodium 20 Mg Tablet) 20 mg PO DAILY [facility] Last Admin: 09/08/24 08:26 Dose: 20 mg Senna (Sennosides 8.6 Mg Tablet) 8.6 mg PO DAILY PRN PRN Reason: constipation Sumatriptan Succinate (Sumatriptan Succinate 50 Mg Tablet) 50 mg PO DAILY MRX1 PRN PRN Reason: migraine Last Admin: 09/07/24 21:17 Dose: 50 mg Trazodone HCl (Trazodone Hcl 100 Mg Tablet) 100 mg PO BEDTIME PRN PRN Reason: Sleep Last Admin: 09/07/24 21:18 Dose: 100 mg Trazodone HCl (Trazodone Hcl 50 Mg Tablet) 50 mg PO BEDTIME MRX1 PRN PRN Reason: Insomnia Valsartan (Valsartan 80 Mg Tablet) 80 mg PO DAILY [facility]; Protocol Last Admin: 09/08/24 08:26 Dose: 80 mg Allergies Allergies Allergy/AdvReac Type Severity Reaction Status Date / Time ibuprofen [IBUPROFEN] Allergy Severe LIGHTHEADED;FEELS Verified 09/04/24 22:05 LIKE CHEST IS CLOSING IN;CLAUSTROPHOBIC Seasonal Allergies Allergy Severe Sneezing Verified 09/04/24 22:05 Assessment & Plan Assessment & Plan (1) PTSD (post-traumatic stress disorder): Status: Acute Code(s): F43.10 - Post-traumatic stress disorder, unspecified (2) MDD (major depressive disorder), recurrent episode, moderate: Status: Acute Code(s): F33.1 - Major depressive disorder, recurrent, moderate (3) Alcohol use disorder: Status: Acute Code(s): F10.90 - Alcohol use, unspecified, uncomplicated Plan 49-year-old woman with history of depression, PTSD and polysubstance dependence/abuse. Suicidal ideations and minor attempts in reaction to her current situation with housing and lack of support. Current medication was continued. She was placed on a CIWA protocol/Ativan. 09/07: Continue current regimen and plans 09/08: Continue current tx Doxycycline 100 mg bid for 7 days (to address cut on pt's forearm done prior to admit) Reason for continued inpatient stay Substantial Risk for: rapid decompensation Time Spent With Patient Time: Total time managing care of this patient today ____ minutes.
[2024-09-08 12:01] LABS: Glucose, Whole Blood 336 mg/dL (60-115)
[2024-09-08 12:34] VITALS: BP 132/75; PULSE 86; RESP 18; TEMP 35.9; O2SAT 98
[2024-09-08 17:37] LABS: Glucose, Whole Blood 242 mg/dL (60-115)
[2024-09-08] MEDS: Doxycycline Monohydrate 100 MG CAPSULE PO (17:37)
[2024-09-08 20:00] VITALS: BP 113/61; PULSE 90; TEMP 36.8; O2SAT 98
[2024-09-08 20:39] LABS: Glucose, Whole Blood 303 mg/dL (60-115)
[2024-09-08] MEDS: clonazePAM 1 MG TABLET PO (21:07)
[2024-09-08] MEDS: traZODone HCL 50 MG TABLET PO (22:20)
[2024-09-08] MEDS: traZODone HCL 100 MG TABLET PO (23:50)
[2024-09-09] VITALS: BP 121/65; PULSE 68; RESP 16; TEMP 34.2; O2SAT 94
[2024-09-09] MEDS: Doxycycline Monohydrate 100 MG CAPSULE PO ×2 (06:45→17:14)
[2024-09-09 08:38] LABS: Glucose, Whole Blood 271 mg/dL (60-115)
[2024-09-09 09:39] VITALS: BP 127/74; PULSE 93; RESP 16; TEMP 36.6; O2SAT 96
[2024-09-09] MEDS: Valsartan 80 MG TABLET PO (09:40)
[2024-09-09] MEDS: DULoxetine HCl 20 MG CAPSULE.DR 40 MG PO (09:40)
[2024-09-09] MEDS: Montelukast Sodium 10 MG TABLET PO (09:40)
[2024-09-09] MEDS: Naltrexone HCl 50 MG TABLET PO (09:41)
[2024-09-09] MEDS: Pravastatin Sodium 20 MG TABLET PO (09:41)
[2024-09-09] MEDS: Loratadine 10 MG TABLET PO (09:41)
[2024-09-09] MEDS: Insulin Lispro 100 UNIT/ML 3 ML VIAL SUBCUT ×3 (09:42→21:27)
[2024-09-09] MEDS: Insulin Glargine,Hum.rec.anlog 100 UNIT/ML 10 ML VIAL 30 UNIT SUBCUT (09:42)
[2024-09-09] MEDS: Fluticasone/Vilanterol 200/25 BLST.W.DEV 1 PUFF INHALE (09:42)
[2024-09-09] MEDS: Fluticasone Propionate Nasal 16 GM SPRAY 2 SPRAY NOSTRIL-B (09:44)
[2024-09-09] MEDS: Albuterol Sulfate 90 MCG 8 GM INHALER 2 PUFF INHALE (09:47)
--- NOTE | 2024-09-09 09:50 | P.PNPSI_ITS ---
Subjective Subjective Date of Service: 09/09/24 Reason For Visit: SI Subjective Notes: Conditional Voluntary Healthcare Proxy: No Guardianship: No Medical Problems Affecting Mental Status: No Interim History: Antibiotics initiated. Wound appears reddened, no drainage, healing. Pt reports poor sleep last night. Team reports 8 hours sleep. Will trial Mirtazapine to assist with sleep/anxiety mgt. Pt has attempted to make contact with [facility] to locate her matt, however, has not been able to locate him today. Medication Compliance: Yes Side effects from medications: No Attending Groups: Intermittent Review of Systems Acute medical concerns: No Medical Review of Systems: unchanged Review of Systems Review of Systems reports poor sleep Mental Status Exam Mental Status Exam Patient Appearance: Fatigued Patient Orientation: Person, Place, Time and Situation Level of Consciousness: Alert Patient Behavior: Appropriate, Talkative, Cooperative and Good Eye Contact Mood Description: Depressed Affect Description: Flat Patient Cognition Impaired: No Ability to Follow Directions: Good Speech Pattern: Spontaneous Speech Memory Description: Intact Hallucinations: None Delusions: Not Present Thought Process: Rumination Thought Content: positive for Perseveration and positive for Suicidal Ideation Depressive Symptoms: Thoughts of /Suicide Judgement: Fair Diagnostics Vital Signs (24Hr): Vital Signs - 24 hr 09/08/24 12:34 09/08/24 20:00 09/09/24 00:00 Temperature 96.6 F L 98.2 F 93.6 F L Pulse Rate 86 90 68 Respiratory Rate 18 16 Blood Pressure 132/75 113/61 121/65 Pulse Oximetry 98 98 94 Oxygen Delivery Method Room Air Room Air Room Air 09/09/24 09:39 Temperature 97.8 F Pulse Rate 93 Respiratory Rate 16 Blood Pressure 127/74 Pulse Oximetry 96 Oxygen Delivery Method Room Air BMI result Body Mass Index 33.3 Labs 09/05/24 14:02 09/06/24 09:19 Labs: Laboratory Results - last 48 hr 09/07/24 09/07/24 09/07/24 12:10 13:56 14:27 POC Glucose 425 H* 417 H* Influenza Type A (PCR) NEGATIVE Influenza Type B (PCR) NEGATIVE RSV RNA Qual (PCR) NEGATIVE SARS-CoV-2 RNA (RT-PCR) NEGATIVE 09/07/24 09/07/24 09/08/24 17:03 20:58 00:33 POC Glucose 221 H 494 H* 239 H Influenza Type A (PCR) Influenza Type B (PCR) RSV RNA Qual (PCR) SARS-CoV-2 RNA (RT-PCR) 09/08/24 09/08/24 09/08/24 03:32 08:02 11:53 POC Glucose 216 H 241 H 336 H Influenza Type A (PCR) Influenza Type B (PCR) RSV RNA Qual (PCR) SARS-CoV-2 RNA (RT-PCR) 09/08/24 09/08/24 09/09/24 17:28 20:35 08:26 POC Glucose 242 H 303 H 271 H Influenza Type A (PCR) Influenza Type B (PCR) RSV RNA Qual (PCR) SARS-CoV-2 RNA (RT-PCR) Medications Medications Current Medications Acetaminophen (Acetaminophen 325 Mg Tablet) 650 mg PO Q6H PRN PRN Reason: Headache/Pain, Scale 1-10 Al Hydroxide/Mg Hydroxide (Magnesium Hydrox/Alum Hydrox 30 Ml Oral.Susp) 30 ml PO Q6H PRN PRN Reason: Heartburn/Nausea Albuterol Sulfate (Albuterol Sulfate 90 Mcg 8 Gm Inhaler) 2 puff INHALE Q6H PRN PRN Reason: wheezing Last Admin: 09/08/24 08:31 Dose: 2 puff Albuterol/Ipratropium (Albuterol/Iprat 2.5/0.5mg 3 Ml Ampul.Neb) 3 ml INHALE QID PRN PRN Reason: wheezing Clonazepam (Clonazepam 1 Mg Tablet) 1 mg PO BEDTIME PRN PRN Reason: Sleep Last Admin: 09/08/24 21:07 Dose: 1 mg Dextrose (Dextrose 50 % 25 Gm/50 Ml Syringe) 25 gm IVPUSH Q15M PRN; Protocol PRN Reason: per Hypoglycemia Standing Ord. Docusate Sodium (Docusate Sodium 100 Mg Capsule) 100 mg PO BID PRN PRN Reason: constipation Doxycycline Monohydrate (Doxycycline Monohydrate 100 Mg Capsule) 100 mg PO Q12H PENDING SALE TO [facility] Stop: 09/15/24 17:59 Last Admin: 09/09/24 06:45 Dose: 100 mg Duloxetine HCl (Duloxetine Hcl 20 Mg Capsule.Dr) 40 mg PO DAILY [facility] Last Admin: 09/08/24 08:27 Dose: 40 mg Fluticasone Propionate (Fluticasone Propionate Nasal 16 Gm [place]) 2 spray NOSTRIL-B DAILY [facility] Last Admin: 09/08/24 08:31 Dose: 2 spray Fluticasone/Vilanterol (Fluticasone/Vilanterol 200/25 Blst.W.Dev) 1 puff INHALE RDAILY [facility] Last Admin: 09/08/24 08:31 Dose: 1 puff Glucagon (Glucagon Hcl 1 Mg Vial) 1 mg SUBCUT ONCE PRN PRN Reason: NEEDED FOR HYPOGLYCERMIA Glucose (Glucose Gel 15 Gm Gel..Gram.) 15 gm PO Q15M PRN; Protocol PRN Reason: per Hypoglycemia Standing Ord. Hydroxyzine HCl (Hydroxyzine Hcl 25 Mg Tablet) 25 mg PO Q6H PRN PRN Reason: mild anxiety Last Admin: 09/06/24 21:06 Dose: 25 mg Insulin Glargine (Insulin Glargine,Hum.Rec.Anlog 100 Unit/Ml 10 Ml Vial) 30 unit SUBCUT DAILY [facility] Last Admin: 09/08/24 08:23 Dose: 30 unit Insulin Human Lispro (Insulin Lispro 100 Unit/Ml 3 Ml Vial) 0 unit SUBCUT QIDACHS [facility]; Protocol Last Admin: 09/08/24 21:07 Dose: 10 unit Loratadine (Loratadine 10 Mg Tablet) 10 mg PO DAILY [facility] Last Admin: 09/08/24 08:26 Dose: 10 mg Lorazepam (Lorazepam 1 Mg Tablet) 1 mg PO Q4H PRN PRN Reason: Alcohol Withdrawal Last Admin: 09/08/24 12:43 Dose: 1 mg Lorazepam (Lorazepam 1 Mg Tablet) 2 mg PO Q2H PRN PRN Reason: Alcohol Withdrawal Lorazepam (Lorazepam 1 Mg Tablet) 3 mg PO Q2H PRN PRN Reason: Alcohol Withdrawal Magnesium Hydroxide (Milk Of Magnesia 30 Ml Oral.Susp) 30 ml PO DAILY PRN PRN Reason: Constipation Montelukast Sodium (Montelukast Sodium 10 Mg Tablet) 10 mg PO DAILY [facility] Last Admin: 09/08/24 08:26 Dose: 10 mg Mupirocin (Mupirocin 2 % Oint 22 Gm Tube) 1 appl TOPICAL TID [facility]; Protocol Last Admin: 09/08/24 21:10 Dose: 1 appl Naltrexone HCl (Naltrexone Hcl 50 Mg Tablet) 50 mg PO DAILY [facility] Last Admin: 09/08/24 08:27 Dose: 50 mg Nicotine (Nicotine 21 Mg Patch.Td24) 21 mg TRANSDERMA DAILY [facility] Last Admin: 09/08/24 08:28 Dose: Not Given Nicotine (Nicotine 14 Mg Patch.Td24) 14 mg TRANSDERMA DAILY PRN PRN Reason: nicotine cravings Pravastatin Sodium (Pravastatin Sodium 20 Mg Tablet) 20 mg PO DAILY [facility] Last Admin: 09/08/24 08:26 Dose: 20 mg Senna (Sennosides 8.6 Mg Tablet) 8.6 mg PO DAILY PRN PRN Reason: constipation Sumatriptan Succinate (Sumatriptan Succinate 50 Mg Tablet) 50 mg PO DAILY MRX1 PRN PRN Reason: migraine Last Admin: 09/07/24 21:17 Dose: 50 mg Trazodone HCl (Trazodone Hcl 100 Mg Tablet) 100 mg PO BEDTIME PRN PRN Reason: Sleep Last Admin: 09/08/24 23:50 Dose: 100 mg Trazodone HCl (Trazodone Hcl 50 Mg Tablet) 50 mg PO BEDTIME MRX1 PRN PRN Reason: Insomnia Last Admin: 09/08/24 22:20 Dose: 50 mg Valsartan (Valsartan 80 Mg Tablet) 80 mg PO DAILY [facility]; Protocol Last Admin: 09/08/24 08:26 Dose: 80 mg Allergies Allergies Allergy/AdvReac Type Severity Reaction Status Date / Time ibuprofen [IBUPROFEN] Allergy Severe LIGHTHEADED;FEELS Verified 09/04/24 22:05 LIKE CHEST IS CLOSING IN;CLAUSTROPHOBIC Seasonal Allergies Allergy Severe Sneezing Verified 09/04/24 22:05 Assessment & Plan Assessment & Plan (1) PTSD (post-traumatic stress disorder): Status: Acute Code(s): F43.10 - Post-traumatic stress disorder, unspecified (2) MDD (major depressive disorder), recurrent episode, moderate: Status: Acute Code(s): F33.1 - Major depressive disorder, recurrent, moderate (3) Alcohol use disorder: Status: Acute Code(s): F10.90 - Alcohol use, unspecified, uncomplicated Plan 49-year-old woman with history of depression, PTSD and polysubstance dependence/abuse. Suicidal ideations and minor attempts in reaction to her current situation with housing and lack of support. Current medication was continued. She was placed on a CIWA protocol/Ativan. 09/07: Continue current regimen and plans 09/09/24: Mirtazapine 7.5 mg HS Reason for continued inpatient stay Substantial Risk for: rapid decompensation Time Spent With Patient Time: Total time managing care of this patient today ____ minutes.
[2024-09-09] MEDS: Mupirocin 2 % Oint 22 GM TUBE 1 APPL TOPICAL ×3 (09:52→21:27)
--- NOTE | 2024-09-09 11:11 | PM.EVENT ---
Event Note Date of Service: 09/09/24 Event Note: Patient remains hyperglycemic in the 200s and 300s. Will increase Lantus to 40 mg daily. Continue prandial insulin as ordered. Continue to reinforce diabetic diet. We will continue monitoring glucose levels Time Spent With Patient Time: Total time managing care of this patient today ____ minutes.
[2024-09-09 11:46] LABS: Glucose, Whole Blood 277 mg/dL (60-115)
[2024-09-09] MEDS: Insulin Glargine,Hum.rec.anlog 100 UNIT/ML 10 ML VIAL 10 UNIT SUBCUT (12:17)
[2024-09-09] MEDS: SUMAtriptan succinate 50 MG TABLET PO (12:21)
[2024-09-09] MEDS: Magnesium Hydrox/Alum Hydrox 30 ML ORAL.SUSP PO (12:21)
[2024-09-09] MEDS: LORazepam 1 MG TABLET PO (12:21)
[2024-09-09 17:07] LABS: Glucose, Whole Blood 111 mg/dL (60-115)
[2024-09-09] MEDS: Acetaminophen 325 MG TABLET 650 MG PO (17:14)
[2024-09-09 20:00] VITALS: BP 130/88; PULSE 69; TEMP 36.8; O2SAT 94
[2024-09-09 20:23] LABS: Glucose, Whole Blood 236 mg/dL (60-115)
[2024-09-09] MEDS: hydrOXYzine HCL 25 MG TABLET PO (21:26)
[2024-09-09] MEDS: traZODone HCL 100 MG TABLET PO (21:27)
[2024-09-09] MEDS: clonazePAM 1 MG TABLET PO (21:27)
[2024-09-09] MEDS: Mirtazapine 7.5 MG TABLET PO (21:27)
[2024-09-10 00:15] VITALS: BP 114/57; PULSE 68; TEMP 36.6; O2SAT 93
--- NOTE | 2024-09-10 02:14 | PC.NURSE ---
Late documentation. Upon assessment on 09/09/24 at approximately 2049 this marketing underwriter noted that the borders of the wound on this patient's left forearm appear to be considerably more reddened than on 09/08/24. Patient complained of increased pruritis of the wound.
[2024-09-10 04:20] VITALS: BP 109/55; PULSE 62; TEMP 36.3; O2SAT 93
[2024-09-10] MEDS: Doxycycline Monohydrate 100 MG CAPSULE PO ×2 (06:37→18:54)
[2024-09-10 07:59] VITALS: BP 104/58; PULSE 59; TEMP 36.1; O2SAT 95
[2024-09-10 08:14] LABS: Glucose, Whole Blood 177 mg/dL (60-115)
[2024-09-10] MEDS: Insulin Lispro 100 UNIT/ML 3 ML VIAL SUBCUT ×3 (09:25→21:59)
[2024-09-10 09:27] VITALS: BP 105/60
[2024-09-10] MEDS: Valsartan 80 MG TABLET PO (09:27)
[2024-09-10] MEDS: DULoxetine HCl 20 MG CAPSULE.DR 40 MG PO (09:27)
[2024-09-10] MEDS: Loratadine 10 MG TABLET PO (09:27)
[2024-09-10] MEDS: Pravastatin Sodium 20 MG TABLET PO (09:28)
[2024-09-10] MEDS: Naltrexone HCl 50 MG TABLET PO (09:28)
[2024-09-10] MEDS: Montelukast Sodium 10 MG TABLET PO (09:28)
[2024-09-10] MEDS: Mupirocin 2 % Oint 22 GM TUBE 1 APPL TOPICAL ×3 (09:34→21:52)
[2024-09-10] MEDS: Fluticasone Propionate Nasal 16 GM SPRAY 2 SPRAY NOSTRIL-B (09:35)
[2024-09-10] MEDS: Insulin Glargine,Hum.rec.anlog 100 UNIT/ML 10 ML VIAL 40 UNIT SUBCUT (09:36)
[2024-09-10] MEDS: Fluticasone/Vilanterol 200/25 BLST.W.DEV 1 PUFF INHALE (09:38)
[2024-09-10] MEDS: Albuterol Sulfate 90 MCG 8 GM INHALER 2 PUFF INHALE (09:43)
--- NOTE | 2024-09-10 09:57 | P.PNPSI_ITS ---
Subjective Subjective Date of Service: 09/10/24 Reason For Visit: SI Subjective Notes: Conditional Voluntary Interim History: Reports Mirtazapine is helpful for sleep. Will continue this dosage. Met with pt and Brigitte Flores LCSW to discuss possible fpc options. Team will look into [facility] with pt. Visable in the milieu, attending some groups. Medication Compliance: Yes Side effects from medications: No Attending Groups: Yes Review of Systems Acute medical concerns: No Review of Systems Review of Systems denies Mental Status Exam Mental Status Exam Patient Appearance: Fatigued Patient Orientation: Person, Place, Time and Situation Level of Consciousness: Alert Patient Behavior: Appropriate, Talkative, Cooperative and Good Eye Contact Mood Description: Depressed Affect Description: Flat Patient Cognition Impaired: No Ability to Follow Directions: Good Speech Pattern: Spontaneous Speech Memory Description: Intact Hallucinations: None Delusions: Not Present Thought Process: Rumination Thought Content: positive for Perseveration and positive for Suicidal Ideation Depressive Symptoms: Thoughts of /Suicide Judgement: Fair Diagnostics Vital Signs (24Hr): Vital Signs - 24 hr 09/09/24 20:00 09/10/24 00:15 09/10/24 04:20 Temperature 98.2 F 97.9 F 97.3 F Pulse Rate 69 68 62 Blood Pressure 130/88 114/57 L 109/55 L Pulse Oximetry 94 93 93 Oxygen Delivery Method Room Air Room Air Room Air 09/10/24 07:59 09/10/24 09:27 Temperature 97.0 F Pulse Rate 59 Blood Pressure 104/58 L 105/60 Pulse Oximetry 95 Oxygen Delivery Method Room Air BMI result Body Mass Index 33.3 Labs 09/05/24 14:02 09/06/24 09:19 Labs: Laboratory Results - last 48 hr 09/08/24 09/08/24 09/08/24 11:53 17:28 20:35 POC Glucose 336 H 242 H 303 H 09/09/24 09/09/24 09/09/24 08:26 11:35 17:03 POC Glucose 271 H 277 H 111 09/09/24 09/10/24 20:14 08:09 POC Glucose 236 H 177 H Medications Medications Current Medications Acetaminophen (Acetaminophen 325 Mg Tablet) 650 mg PO Q6H PRN PRN Reason: Headache/Pain, Scale 1-10 Last Admin: 09/09/24 17:14 Dose: 650 mg Al Hydroxide/Mg Hydroxide (Magnesium Hydrox/Alum Hydrox 30 Ml Oral.Susp) 30 ml PO Q6H PRN PRN Reason: Heartburn/Nausea Last Admin: 09/09/24 12:21 Dose: 30 ml Albuterol Sulfate (Albuterol Sulfate 90 Mcg 8 Gm Inhaler) 2 puff INHALE Q6H PRN PRN Reason: wheezing Last Admin: 09/10/24 09:43 Dose: 2 puff Albuterol/Ipratropium (Albuterol/Iprat 2.5/0.5mg 3 Ml Ampul.Neb) 3 ml INHALE QID PRN PRN Reason: wheezing Dextrose (Dextrose 50 % 25 Gm/50 Ml Syringe) 25 gm IVPUSH Q15M PRN; Protocol PRN Reason: per Hypoglycemia Standing Ord. Docusate Sodium (Docusate Sodium 100 Mg Capsule) 100 mg PO BID PRN PRN Reason: constipation Doxycycline Monohydrate (Doxycycline Monohydrate 100 Mg Capsule) 100 mg PO Q12H [facility] Stop: 09/15/24 17:59 Last Admin: 09/10/24 06:37 Dose: 100 mg Duloxetine HCl (Duloxetine Hcl 20 Mg Capsule.Dr) 40 mg PO DAILY [facility] Last Admin: 09/10/24 09:27 Dose: 40 mg Fluticasone Propionate (Fluticasone Propionate Nasal 16 Gm Reynolds) 2 spray NOSTRIL-B DAILY [facility] Last Admin: 09/10/24 09:35 Dose: 2 spray Fluticasone/Vilanterol (Fluticasone/Vilanterol 200/25 Blst.W.Dev) 1 puff INHALE RDAILY [facility] Last Admin: 09/10/24 09:38 Dose: 1 puff Glucagon (Glucagon Hcl 1 Mg Vial) 1 mg SUBCUT ONCE PRN PRN Reason: NEEDED FOR HYPOGLYCERMIA Glucose (Glucose Gel 15 Gm Gel..Gram.) 15 gm PO Q15M PRN; Protocol PRN Reason: per Hypoglycemia Standing Ord. Hydroxyzine HCl (Hydroxyzine Hcl 25 Mg Tablet) 25 mg PO Q6H PRN PRN Reason: mild anxiety Last Admin: 09/09/24 21:26 Dose: 25 mg Insulin Glargine (Insulin Glargine,Hum.Rec.Anlog 100 Unit/Ml 10 Ml Vial) 40 unit SUBCUT DAILY [facility] Last Admin: 09/10/24 09:36 Dose: 40 unit Insulin Human Lispro (Insulin Lispro 100 Unit/Ml 3 Ml Vial) 0 unit SUBCUT QIDACHS [facility]; Protocol Last Admin: 09/10/24 09:25 Dose: 2 unit Loratadine (Loratadine 10 Mg Tablet) 10 mg PO DAILY [facility] Last Admin: 09/10/24 09:27 Dose: 10 mg Lorazepam (Lorazepam 1 Mg Tablet) 1 mg PO Q4H PRN PRN Reason: Alcohol Withdrawal Last Admin: 09/09/24 12:21 Dose: 1 mg Lorazepam (Lorazepam 1 Mg Tablet) 2 mg PO Q2H PRN PRN Reason: Alcohol Withdrawal Lorazepam (Lorazepam 1 Mg Tablet) 3 mg PO Q2H PRN PRN Reason: Alcohol Withdrawal Magnesium Hydroxide (Milk Of Magnesia 30 Ml Oral.Susp) 30 ml PO DAILY PRN PRN Reason: Constipation Mirtazapine (Mirtazapine 7.5 Mg Tablet) 7.5 mg PO BEDTIME [facility] Last Admin: 09/09/24 21:27 Dose: 7.5 mg Montelukast Sodium (Montelukast Sodium 10 Mg Tablet) 10 mg PO DAILY [facility] Last Admin: 09/10/24 09:28 Dose: 10 mg Mupirocin (Mupirocin 2 % Oint 22 Gm Tube) 1 appl TOPICAL TID [facility]; Protocol Last Admin: 09/10/24 09:34 Dose: 1 appl Naltrexone HCl (Naltrexone Hcl 50 Mg Tablet) 50 mg PO DAILY [facility] Last Admin: 09/10/24 09:28 Dose: 50 mg Nicotine (Nicotine 21 Mg Patch.Td24) 21 mg TRANSDERMA DAILY [facility] Last Admin: 09/09/24 09:41 Dose: Not Given Nicotine (Nicotine 14 Mg Patch.Td24) 14 mg TRANSDERMA DAILY PRN PRN Reason: nicotine cravings Pravastatin Sodium (Pravastatin Sodium 20 Mg Tablet) 20 mg PO DAILY [facility] Last Admin: 09/10/24 09:28 Dose: 20 mg Senna (Sennosides 8.6 Mg Tablet) 8.6 mg PO DAILY PRN PRN Reason: constipation Sumatriptan Succinate (Sumatriptan Succinate 50 Mg Tablet) 50 mg PO DAILY PRN PRN Reason: migraine Trazodone HCl (Trazodone Hcl 100 Mg Tablet) 100 mg PO BEDTIME PRN PRN Reason: Sleep Last Admin: 09/09/24 21:27 Dose: 100 mg Trazodone HCl (Trazodone Hcl 50 Mg Tablet) 50 mg PO BEDTIME MRX1 PRN PRN Reason: Insomnia Last Admin: 09/08/24 22:20 Dose: 50 mg Valsartan (Valsartan 80 Mg Tablet) 80 mg PO DAILY [facility]; Protocol Last Admin: 09/10/24 09:27 Dose: 80 mg Allergies Allergies Allergy/AdvReac Type Severity Reaction Status Date / Time ibuprofen [IBUPROFEN] Allergy Severe LIGHTHEADED;FEELS Verified 09/04/24 22:05 LIKE CHEST IS CLOSING IN;CLAUSTROPHOBIC Seasonal Allergies Allergy Severe Sneezing Verified 09/04/24 22:05 Assessment & Plan Assessment & Plan (1) PTSD (post-traumatic stress disorder): Status: Acute Code(s): F43.10 - Post-traumatic stress disorder, unspecified (2) MDD (major depressive disorder), recurrent episode, moderate: Status: Acute Code(s): F33.1 - Major depressive disorder, recurrent, moderate (3) Alcohol use disorder: Status: Acute Code(s): F10.90 - Alcohol use, unspecified, uncomplicated Plan 49-year-old woman with history of depression, PTSD and polysubstance dependence/abuse. Suicidal ideations and minor attempts in reaction to her current situation with housing and lack of support. Current medication was continued. She was placed on a CIWA protocol/Ativan. 09/07: Continue current regimen and plans 09/09/24: Mirtazapine 7.5 mg HS 09/10/24: Continue tx Reason for continued inpatient stay Substantial Risk for: rapid decompensation Time Spent With Patient Time: Total time managing care of this patient today ____ minutes.
[2024-09-10 12:18] LABS: Glucose, Whole Blood 313 mg/dL (60-115)
[2024-09-10] MEDS: SUMAtriptan succinate 50 MG TABLET PO (13:31)
[2024-09-10 17:18] LABS: Glucose, Whole Blood 95 mg/dL (60-115)
[2024-09-10 19:52] VITALS: BP 122/74; PULSE 69; RESP 18; TEMP 36.4; O2SAT 95
[2024-09-10 21:15] LABS: Glucose, Whole Blood 170 mg/dL (60-115)
[2024-09-10] MEDS: Mirtazapine 7.5 MG TABLET PO (21:46)
[2024-09-10] MEDS: hydrOXYzine HCL 25 MG TABLET PO (21:47)
[2024-09-10] MEDS: LORazepam 1 MG TABLET PO (21:47)
[2024-09-10] MEDS: traZODone HCL 100 MG TABLET PO (21:47)
[2024-09-11] MEDS: Doxycycline Monohydrate 100 MG CAPSULE PO ×2 (06:22→17:23)
[2024-09-11 07:00] VITALS: BMI 31.3
[2024-09-11 07:57] VITALS: BP 144/68; PULSE 64; RESP 18; TEMP 35.9; O2SAT 92
[2024-09-11 08:04] LABS: Glucose, Whole Blood 439 mg/dL (60-115)
[2024-09-11] MEDS: Insulin Lispro 100 UNIT/ML 3 ML VIAL SUBCUT ×3 (08:16→17:23)
[2024-09-11] MEDS: Insulin Glargine,Hum.rec.anlog 100 UNIT/ML 10 ML VIAL 40 UNIT SUBCUT (08:17)
[2024-09-11] MEDS: Naltrexone HCl 50 MG TABLET PO (08:21)
[2024-09-11] MEDS: Valsartan 80 MG TABLET PO (08:21)
[2024-09-11] MEDS: Montelukast Sodium 10 MG TABLET PO (08:21)
[2024-09-11] MEDS: Pravastatin Sodium 20 MG TABLET PO (08:21)
[2024-09-11] MEDS: DULoxetine HCl 20 MG CAPSULE.DR 40 MG PO (08:21)
[2024-09-11] MEDS: Loratadine 10 MG TABLET PO (08:23)
[2024-09-11] MEDS: Fluticasone Propionate Nasal 16 GM SPRAY 2 SPRAY NOSTRIL-B (08:26)
[2024-09-11] MEDS: Mupirocin 2 % Oint 22 GM TUBE 1 APPL TOPICAL ×3 (08:26→20:37)
[2024-09-11] MEDS: Fluticasone/Vilanterol 200/25 BLST.W.DEV 1 PUFF INHALE (08:26)
--- NOTE | 2024-09-11 10:15 | HO.PSYCHPN ---
Subjective Subjective Date of Service: 09/11/24 Reason For Visit: SI Subjective Notes: Conditional Voluntary Interim History: Pt had an offer from [facility] today, however has no funds until 09/30. Family is unable to loan her money for the 3 weeks of rent. Encouraged by team to inquire with [facility] program. Discouraged, but participating in the process of searching for fdc. Team is working on teaching problem solving skills. Pt reports regime requires no changes today. Medication Compliance: Yes Side effects from medications: No Attending Groups: Intermittent Review of Systems Acute medical concerns: No Review of Systems Review of Systems denies Mental Status Exam Mental Status Exam Patient Appearance: Fatigued Patient Orientation: Person, Place, Time and Situation Level of Consciousness: Alert Patient Behavior: Appropriate, Talkative, Cooperative and Good Eye Contact Mood Description: Depressed Affect Description: Flat Patient Cognition Impaired: No Ability to Follow Directions: Good Speech Pattern: Spontaneous Speech Memory Description: Intact Hallucinations: None Delusions: Not Present Thought Process: Rumination Thought Content: positive for Perseveration and positive for Suicidal Ideation Depressive Symptoms: Thoughts of /Suicide Judgement: Fair Diagnostics Vital Signs (24Hr): Vital Signs - 24 hr 09/10/24 19:52 09/11/24 07:57 Temperature 97.6 F 96.7 F L Pulse Rate 69 64 Respiratory Rate 18 18 Blood Pressure 122/74 144/68 H Pulse Oximetry 95 92 Oxygen Delivery Method Room Air Room Air BMI result Body Mass Index 33.3 Labs 09/05/24 14:02 09/06/24 09:19 Labs: Laboratory Results - last 48 hr 09/09/24 09/09/24 09/09/24 11:35 17:03 20:14 POC Glucose 277 H 111 236 H 09/10/24 09/10/24 09/10/24 08:09 12:14 17:13 POC Glucose 177 H 313 H 95 09/10/24 09/11/24 21:10 08:00 POC Glucose 170 H 439 H* Medications Medications Current Medications Acetaminophen (Acetaminophen 325 Mg Tablet) 650 mg PO Q6H PRN PRN Reason: Headache/Pain, Scale 1-10 Last Admin: 09/09/24 17:14 Dose: 650 mg Al Hydroxide/Mg Hydroxide (Magnesium Hydrox/Alum Hydrox 30 Ml Oral.Susp) 30 ml PO Q6H PRN PRN Reason: Heartburn/Nausea Last Admin: 09/09/24 12:21 Dose: 30 ml Albuterol Sulfate (Albuterol Sulfate 90 Mcg 8 Gm Inhaler) 2 puff INHALE Q6H PRN PRN Reason: wheezing Last Admin: 09/10/24 09:43 Dose: 2 puff Albuterol/Ipratropium (Albuterol/Iprat 2.5/0.5mg 3 Ml Ampul.Neb) 3 ml INHALE QID PRN PRN Reason: wheezing Dextrose (Dextrose 50 % 25 Gm/50 Ml Syringe) 25 gm IVPUSH Q15M PRN; Protocol PRN Reason: per Hypoglycemia Standing Ord. Docusate Sodium (Docusate Sodium 100 Mg Capsule) 100 mg PO BID PRN PRN Reason: constipation Doxycycline Monohydrate (Doxycycline Monohydrate 100 Mg Capsule) 100 mg PO Q12H [facility] Stop: 09/15/24 17:59 Last Admin: 09/11/24 06:22 Dose: 100 mg Duloxetine HCl (Duloxetine Hcl 20 Mg Capsule.Dr) 40 mg PO DAILY [facility] Last Admin: 09/11/24 08:21 Dose: 40 mg Fluticasone Propionate (Fluticasone Propionate Nasal 16 Gm Marshall) 2 spray NOSTRIL-B DAILY [facility] Last Admin: 09/11/24 08:26 Dose: 2 spray Fluticasone/Vilanterol (Fluticasone/Vilanterol 200/25 Blst.W.Dev) 1 puff INHALE RDAILY [facility] Last Admin: 09/11/24 08:26 Dose: 1 puff Glucagon (Glucagon Hcl 1 Mg Vial) 1 mg SUBCUT ONCE PRN PRN Reason: NEEDED FOR HYPOGLYCERMIA Glucose (Glucose Gel 15 Gm Gel..Gram.) 15 gm PO Q15M PRN; Protocol PRN Reason: per Hypoglycemia Standing Ord. Hydroxyzine HCl (Hydroxyzine Hcl 25 Mg Tablet) 25 mg PO Q6H PRN PRN Reason: mild anxiety Last Admin: 09/10/24 21:47 Dose: 25 mg Insulin Glargine (Insulin Glargine,Hum.Rec.Anlog 100 Unit/Ml 10 Ml Vial) 40 unit SUBCUT DAILY [facility] Last Admin: 09/11/24 08:17 Dose: 40 unit Insulin Human Lispro (Insulin Lispro 100 Unit/Ml 3 Ml Vial) 0 unit SUBCUT QIDACHS [facility]; Protocol Last Admin: 09/11/24 08:16 Dose: 14 unit Loratadine (Loratadine 10 Mg Tablet) 10 mg PO DAILY [facility] Last Admin: 09/11/24 08:23 Dose: 10 mg Magnesium Hydroxide (Milk Of Magnesia 30 Ml Oral.Susp) 30 ml PO DAILY PRN PRN Reason: Constipation Mirtazapine (Mirtazapine 7.5 Mg Tablet) 7.5 mg PO BEDTIME [facility] Last Admin: 09/10/24 21:46 Dose: 7.5 mg Montelukast Sodium (Montelukast Sodium 10 Mg Tablet) 10 mg PO DAILY [facility] Last Admin: 09/11/24 08:21 Dose: 10 mg Mupirocin (Mupirocin 2 % Oint 22 Gm Tube) 1 appl TOPICAL TID [facility]; Protocol Last Admin: 09/11/24 08:26 Dose: 1 appl Naltrexone HCl (Naltrexone Hcl 50 Mg Tablet) 50 mg PO DAILY [facility] Last Admin: 09/11/24 08:21 Dose: 50 mg Nicotine (Nicotine 21 Mg Patch.Td24) 21 mg TRANSDERMA DAILY [facility] Last Admin: 09/11/24 08:24 Dose: Not Given Nicotine (Nicotine 14 Mg Patch.Td24) 14 mg TRANSDERMA DAILY PRN PRN Reason: nicotine cravings Pravastatin Sodium (Pravastatin Sodium 20 Mg Tablet) 20 mg PO DAILY [facility] Last Admin: 09/11/24 08:21 Dose: 20 mg Senna (Sennosides 8.6 Mg Tablet) 8.6 mg PO DAILY PRN PRN Reason: constipation Sumatriptan Succinate (Sumatriptan Succinate 50 Mg Tablet) 50 mg PO DAILY PRN PRN Reason: migraine Last Admin: 09/10/24 13:31 Dose: 50 mg Trazodone HCl (Trazodone Hcl 100 Mg Tablet) 100 mg PO BEDTIME PRN PRN Reason: Sleep Last Admin: 09/10/24 21:47 Dose: 100 mg Trazodone HCl (Trazodone Hcl 50 Mg Tablet) 50 mg PO BEDTIME MRX1 PRN PRN Reason: Insomnia Last Admin: 09/08/24 22:20 Dose: 50 mg Valsartan (Valsartan 80 Mg Tablet) 80 mg PO DAILY [facility]; Protocol Last Admin: 09/11/24 08:21 Dose: 80 mg Allergies Allergies Allergy/AdvReac Type Severity Reaction Status Date / Time ibuprofen [IBUPROFEN] Allergy Severe LIGHTHEADED;FEELS Verified 09/04/24 22:05 LIKE CHEST IS CLOSING IN;CLAUSTROPHOBIC Seasonal Allergies Allergy Severe Sneezing Verified 09/04/24 22:05 Assessment & Plan Assessment & Plan (1) PTSD (post-traumatic stress disorder): Status: Acute Code(s): F43.10 - Post-traumatic stress disorder, unspecified (2) MDD (major depressive disorder), recurrent episode, moderate: Status: Acute Code(s): F33.1 - Major depressive disorder, recurrent, moderate (3) Alcohol use disorder: Status: Acute Code(s): F10.90 - Alcohol use, unspecified, uncomplicated Plan 49-year-old woman with history of depression, PTSD and polysubstance dependence/abuse. Suicidal ideations and minor attempts in reaction to her current situation with housing and lack of support. Current medication was continued. She was placed on a CIWA protocol/Ativan. 09/07: Continue current regimen and plans 09/09/24: Mirtazapine 7.5 mg HS 09/11: Encourage participation in her care planning. Reason for continued inpatient stay Substantial Risk for: rapid decompensation Time Spent With Patient Time: Total time managing care of this patient today ____ minutes.
[2024-09-11 12:10] LABS: Glucose, Whole Blood 227 mg/dL (60-115)
[2024-09-11] MEDS: hydrOXYzine HCL 25 MG TABLET PO ×2 (14:30→20:41)
[2024-09-11] MEDS: Albuterol Sulfate 90 MCG 8 GM INHALER 2 PUFF INHALE (14:31)
[2024-09-11 17:21] LABS: Glucose, Whole Blood 162 mg/dL (60-115)
[2024-09-11 20:00] VITALS: BP 131/64; PULSE 70; TEMP 36.8; O2SAT 95
[2024-09-11 20:32] LABS: Glucose, Whole Blood 134 mg/dL (60-115)
[2024-09-11] MEDS: Magnesium Hydrox/Alum Hydrox 30 ML ORAL.SUSP PO (20:32)
[2024-09-11] MEDS: Mirtazapine 7.5 MG TABLET PO (20:33)
[2024-09-12] MEDS: Doxycycline Monohydrate 100 MG CAPSULE PO ×2 (06:45→17:07)
[2024-09-12 07:50] LABS: Glucose, Whole Blood 198 mg/dL (60-115)
[2024-09-12 08:00] VITALS: BP 132/65; PULSE 64; TEMP 36.4; O2SAT 93
[2024-09-12] MEDS: Insulin Glargine,Hum.rec.anlog 100 UNIT/ML 10 ML VIAL 40 UNIT SUBCUT (08:52)
[2024-09-12] MEDS: Insulin Lispro 100 UNIT/ML 3 ML VIAL SUBCUT ×4 (08:53→21:32)
[2024-09-12] MEDS: DULoxetine HCl 20 MG CAPSULE.DR 40 MG PO (08:54)
[2024-09-12] MEDS: Pravastatin Sodium 20 MG TABLET PO (08:55)
[2024-09-12] MEDS: Naltrexone HCl 50 MG TABLET PO (08:55)
[2024-09-12 08:56] VITALS: BP 132/65
[2024-09-12] MEDS: Valsartan 80 MG TABLET PO (08:56)
[2024-09-12] MEDS: Loratadine 10 MG TABLET PO (08:56)
[2024-09-12] MEDS: Montelukast Sodium 10 MG TABLET PO (08:57)
[2024-09-12] MEDS: Albuterol Sulfate 90 MCG 8 GM INHALER 2 PUFF INHALE (09:00)
[2024-09-12] MEDS: Mupirocin 2 % Oint 22 GM TUBE 1 APPL TOPICAL ×3 (09:00→21:34)
[2024-09-12] MEDS: Fluticasone Propionate Nasal 16 GM SPRAY 2 SPRAY NOSTRIL-B (09:00)
[2024-09-12] MEDS: Fluticasone/Vilanterol 200/25 BLST.W.DEV 1 PUFF INHALE (09:02)
[2024-09-12 12:29] LABS: Glucose, Whole Blood 221 mg/dL (60-115)
--- NOTE | 2024-09-12 15:13 | P.PNPSI_ITS ---
Subjective Subjective Date of Service: 09/12/24 Reason For Visit: SI Subjective Notes: Conditional Voluntary Healthcare Proxy: No Guardianship: No Medical Problems Affecting Mental Status: No Interim History: Med review. [facility] was taken off pt's med list, re-started. Discussed locating and talking with her matt. He will return to his daughter's home, however pt is not welcome as matt's daughter believes they threaten each others sobriety and potentiate relapse. Pt does not agree. Discussed her reasoning. Hoping for CSS opening for ongoing rehab. Medication Compliance: Yes Side effects from medications: No Attending Groups: Intermittent Review of Systems Acute medical concerns: No Review of Systems Review of Systems Denies Mental Status Exam Mental Status Exam Patient Appearance: Fatigued Patient Orientation: Person, Place, Time and Situation Level of Consciousness: Alert Patient Behavior: Appropriate, Talkative, Cooperative and Good Eye Contact Mood Description: Depressed Affect Description: Flat Patient Cognition Impaired: No Ability to Follow Directions: Good Speech Pattern: Spontaneous Speech Memory Description: Intact Hallucinations: None Delusions: Not Present Thought Process: Rumination Thought Content: positive for Perseveration and positive for Suicidal Ideation Depressive Symptoms: Thoughts of /Suicide Judgement: Fair Diagnostics Vital Signs (24Hr): Vital Signs - 24 hr 09/11/24 20:00 09/12/24 08:00 09/12/24 08:56 Temperature 98.2 F 97.6 F Pulse Rate 70 64 Blood Pressure 131/64 132/65 132/65 Pulse Oximetry 95 93 Oxygen Delivery Method Room Air Room Air BMI result Body Mass Index 31.3 Labs 09/05/24 14:02 09/06/24 09:19 Labs: Laboratory Results - last 48 hr 09/10/24 09/10/24 09/11/24 17:13 21:10 08:00 POC Glucose 95 170 H 439 H* 09/11/24 09/11/24 09/11/24 12:06 17:18 20:26 POC Glucose 227 H 162 H 134 H 09/12/24 09/12/24 07:46 12:24 POC Glucose 198 H 221 H Medications Medications Current Medications Acetaminophen (Acetaminophen 325 Mg Tablet) 650 mg PO Q6H PRN PRN Reason: Headache/Pain, Scale 1-10 Last Admin: 09/09/24 17:14 Dose: 650 mg Al Hydroxide/Mg Hydroxide (Magnesium Hydrox/Alum Hydrox 30 Ml Oral.Susp) 30 ml PO Q6H PRN PRN Reason: Heartburn/Nausea Last Admin: 09/11/24 20:32 Dose: 30 ml Albuterol Sulfate (Albuterol Sulfate 90 Mcg 8 Gm Inhaler) 2 puff INHALE Q6H PRN PRN Reason: wheezing Last Admin: 09/12/24 09:00 Dose: 2 puff Albuterol/Ipratropium (Albuterol/Iprat 2.5/0.5mg 3 Ml Ampul.Neb) 3 ml INHALE QID PRN PRN Reason: wheezing Dextrose (Dextrose 50 % 25 Gm/50 Ml Syringe) 25 gm IVPUSH Q15M PRN; Protocol PRN Reason: per Hypoglycemia Standing Ord. Docusate Sodium (Docusate Sodium 100 Mg Capsule) 100 mg PO BID PRN PRN Reason: constipation Doxycycline Monohydrate (Doxycycline Monohydrate 100 Mg Capsule) 100 mg PO Q12H [facility] Stop: 09/15/24 17:59 Last Admin: 09/12/24 06:45 Dose: 100 mg Duloxetine HCl (Duloxetine Hcl 20 Mg Capsule.Dr) 40 mg PO DAILY [facility] Last Admin: 09/12/24 08:54 Dose: 40 mg Fluticasone Propionate (Fluticasone Propionate Nasal 16 Gm Willard) 2 spray NOSTRIL-B DAILY [facility] Last Admin: 09/12/24 09:00 Dose: 2 spray Fluticasone/Vilanterol (Fluticasone/Vilanterol 200/25 Blst.W.Dev) 1 puff INHALE RDAILY [facility] Last Admin: 09/12/24 09:02 Dose: 1 puff Glucagon (Glucagon Hcl 1 Mg Vial) 1 mg SUBCUT ONCE PRN PRN Reason: NEEDED FOR HYPOGLYCERMIA Glucose (Glucose Gel 15 Gm Gel..Gram.) 15 gm PO Q15M PRN; Protocol PRN Reason: per Hypoglycemia Standing Ord. Hydroxyzine HCl (Hydroxyzine Hcl 25 Mg Tablet) 25 mg PO Q6H PRN PRN Reason: mild anxiety Last Admin: 09/11/24 20:41 Dose: 25 mg Insulin Glargine (Insulin Glargine,Hum.Rec.Anlog 100 Unit/Ml 10 Ml Vial) 40 unit SUBCUT DAILY [facility] Last Admin: 09/12/24 08:52 Dose: 40 unit Insulin Human Lispro (Insulin Lispro 100 Unit/Ml 3 Ml Vial) 0 unit SUBCUT QIDACHS [facility]; Protocol Last Admin: 09/12/24 12:34 Dose: 4 unit Loratadine (Loratadine 10 Mg Tablet) 10 mg PO DAILY [facility] Last Admin: 09/12/24 08:56 Dose: 10 mg Magnesium Hydroxide (Milk Of Magnesia 30 Ml Oral.Susp) 30 ml PO DAILY PRN PRN Reason: Constipation Mirtazapine (Mirtazapine 7.5 Mg Tablet) 7.5 mg PO BEDTIME [facility] Last Admin: 09/11/24 20:33 Dose: 7.5 mg Montelukast Sodium (Montelukast Sodium 10 Mg Tablet) 10 mg PO DAILY [facility] Last Admin: 09/12/24 08:57 Dose: 10 mg Mupirocin (Mupirocin 2 % Oint 22 Gm Tube) 1 appl TOPICAL TID [facility]; Protocol Last Admin: 09/12/24 09:00 Dose: 1 appl Naltrexone HCl (Naltrexone Hcl 50 Mg Tablet) 50 mg PO DAILY [facility] Last Admin: 09/12/24 08:55 Dose: 50 mg Nicotine (Nicotine 21 Mg Patch.Td24) 21 mg TRANSDERMA DAILY [facility] Last Admin: 09/12/24 09:02 Dose: Not Given Nicotine (Nicotine 14 Mg Patch.Td24) 14 mg TRANSDERMA DAILY PRN PRN Reason: nicotine cravings Pravastatin Sodium (Pravastatin Sodium 20 Mg Tablet) 20 mg PO DAILY [facility] Last Admin: 09/12/24 08:55 Dose: 20 mg Senna (Sennosides 8.6 Mg Tablet) 8.6 mg PO DAILY PRN PRN Reason: constipation Sumatriptan Succinate (Sumatriptan Succinate 50 Mg Tablet) 50 mg PO DAILY PRN PRN Reason: migraine Last Admin: 09/10/24 13:31 Dose: 50 mg Trazodone HCl (Trazodone Hcl 100 Mg Tablet) 100 mg PO BEDTIME PRN PRN Reason: Sleep Last Admin: 09/10/24 21:47 Dose: 100 mg Trazodone HCl (Trazodone Hcl 50 Mg Tablet) 50 mg PO BEDTIME MRX1 PRN PRN Reason: Insomnia Last Admin: 09/08/24 22:20 Dose: 50 mg Valsartan (Valsartan 80 Mg Tablet) 80 mg PO DAILY [facility]; Protocol Last Admin: 09/12/24 08:56 Dose: 80 mg Allergies Allergies Allergy/AdvReac Type Severity Reaction Status Date / Time ibuprofen [IBUPROFEN] Allergy Severe LIGHTHEADED;FEELS Verified 09/04/24 22:05 LIKE CHEST IS CLOSING IN;CLAUSTROPHOBIC Seasonal Allergies Allergy Severe Sneezing Verified 09/04/24 22:05 Assessment & Plan Assessment & Plan (1) PTSD (post-traumatic stress disorder): Status: Acute Code(s): F43.10 - Post-traumatic stress disorder, unspecified (2) MDD (major depressive disorder), recurrent episode, moderate: Status: Acute Code(s): F33.1 - Major depressive disorder, recurrent, moderate (3) Alcohol use disorder: Status: Acute Code(s): F10.90 - Alcohol use, unspecified, uncomplicated Plan 49-year-old woman with history of depression, PTSD and polysubstance dependence/abuse. Suicidal ideations and minor attempts in reaction to her current situation with housing and lack of support. Current medication was continued. She was placed on a CIWA protocol/Ativan. 09/07: Continue current regimen and plans 09/09/24: Mirtazapine 7.5 mg HS 09/11: Encourage participation in her care planning. 09/12: Continue current regime Looking at rehab options for next week. Reason for continued inpatient stay Substantial Risk for: rapid decompensation Time Spent With Patient Time: Total time managing care of this patient today ____ minutes.
[2024-09-12 17:00] LABS: Glucose, Whole Blood 254 mg/dL (60-115)
[2024-09-12 20:00] VITALS: BP 132/67; PULSE 68; TEMP 36.6; O2SAT 96
[2024-09-12 21:00] LABS: Glucose, Whole Blood 252 mg/dL (60-115)
[2024-09-12 21:06] LABS: Glucose, Whole Blood 251 mg/dL (60-115)
[2024-09-12] MEDS: traZODone HCL 100 MG TABLET PO (21:17)
[2024-09-12] MEDS: Mirtazapine 7.5 MG TABLET PO (21:17)
[2024-09-12] MEDS: clonazePAM 1 MG TABLET PO (21:34)
[2024-09-13] MEDS: Doxycycline Monohydrate 100 MG CAPSULE PO ×2 (07:00→18:32)
[2024-09-13 07:57] LABS: Glucose, Whole Blood 392 mg/dL (60-115)
--- NOTE | 2024-09-13 08:21 | PC.NURSE ---
POC this morning 397, will administer 14units per sliding scale. Dr Lu notified per policy, no additional orders given
--- NOTE | 2024-09-13 08:28 | P.PNPSI_ITS ---
Subjective Subjective Date of Service: 09/13/24 Reason For Visit: SI Subjective Notes: Conditional Voluntary Healthcare Proxy: No Guardianship: No Medical Problems Affecting Mental Status: No Interim History: 49 yo depressed appear woman- no complaints today - anxious re dc hoping to get into [facility] program- [facility]- denies si, side effects of meds, or alcohol cravings- Medication Compliance: Yes Side effects from medications: No Attending Groups: Yes Review of Systems Acute medical concerns: No Medical Review of Systems: unchanged Mental Status Exam Mental Status Exam Patient Appearance: Well Grooomed and Appropriate Patient Orientation: Person, Place, Time and Situation Level of Consciousness: Awake Patient Behavior: Appropriate and Cooperative Mood Description: Sad Affect Description: Sad (restricted) Patient Cognition Impaired: No Ability to Follow Directions: Good Speech Pattern: Clear Hallucinations: None Delusions: Not Present Thought Process: Intact and Goal Oriented Thought Content: positive for Intact Depressive Symptoms: Unhappiness Judgement: Fair Diagnostics Vital Signs (24Hr): Vital Signs - 24 hr 09/12/24 08:56 09/12/24 20:00 Temperature 97.9 F Pulse Rate 68 Blood Pressure 132/65 132/67 Pulse Oximetry 96 Oxygen Delivery Method Room Air BMI result Body Mass Index 31.3 Labs 09/05/24 14:02 09/06/24 09:19 Labs: Laboratory Results - last 48 hr 09/11/24 09/11/24 09/11/24 12:06 17:18 20:26 POC Glucose 227 H 162 H 134 H 09/12/24 09/12/24 09/12/24 07:46 12:24 16:57 POC Glucose 198 H 221 H 254 H 09/12/24 09/12/24 09/13/24 20:12 21:01 07:53 POC Glucose 252 H 251 H 392 H* Medications Medications Current Medications Acetaminophen (Acetaminophen 325 Mg Tablet) 650 mg PO Q6H PRN PRN Reason: Headache/Pain, Scale 1-10 Last Admin: 09/09/24 17:14 Dose: 650 mg Al Hydroxide/Mg Hydroxide (Magnesium Hydrox/Alum Hydrox 30 Ml Oral.Susp) 30 ml PO Q6H PRN PRN Reason: Heartburn/Nausea Last Admin: 09/11/24 20:32 Dose: 30 ml Albuterol Sulfate (Albuterol Sulfate 90 Mcg 8 Gm Inhaler) 2 puff INHALE Q6H PRN PRN Reason: wheezing Last Admin: 09/12/24 09:00 Dose: 2 puff Albuterol/Ipratropium (Albuterol/Iprat 2.5/0.5mg 3 Ml Ampul.Neb) 3 ml INHALE QID PRN PRN Reason: wheezing Clonazepam (Clonazepam 1 Mg Tablet) 1 mg PO BEDTIME PRN PRN Reason: Sleep Last Admin: 09/12/24 21:34 Dose: 1 mg Dextrose (Dextrose 50 % 25 Gm/50 Ml Syringe) 25 gm IVPUSH Q15M PRN; Protocol PRN Reason: per Hypoglycemia Standing Ord. Docusate Sodium (Docusate Sodium 100 Mg Capsule) 100 mg PO BID PRN PRN Reason: constipation Doxycycline Monohydrate (Doxycycline Monohydrate 100 Mg Capsule) 100 mg PO Q12H [facility] Stop: 09/15/24 17:59 Last Admin: 09/13/24 07:00 Dose: 100 mg Duloxetine HCl (Duloxetine Hcl 20 Mg Capsule.Dr) 40 mg PO DAILY [facility] Last Admin: 09/12/24 08:54 Dose: 40 mg Fluticasone Propionate (Fluticasone Propionate Nasal 16 Gm [place]) 2 spray NOSTRIL-B DAILY [facility] Last Admin: 09/12/24 09:00 Dose: 2 spray Fluticasone/Vilanterol (Fluticasone/Vilanterol 200/25 Blst.W.Dev) 1 puff INHALE RDAILY [facility] Last Admin: 09/12/24 09:02 Dose: 1 puff Glucagon (Glucagon Hcl 1 Mg Vial) 1 mg SUBCUT ONCE PRN PRN Reason: NEEDED FOR HYPOGLYCERMIA Glucose (Glucose Gel 15 Gm Gel..Gram.) 15 gm PO Q15M PRN; Protocol PRN Reason: per Hypoglycemia Standing Ord. Hydroxyzine HCl (Hydroxyzine Hcl 25 Mg Tablet) 25 mg PO Q6H PRN PRN Reason: mild anxiety Last Admin: 09/11/24 20:41 Dose: 25 mg Insulin Glargine (Insulin Glargine,Hum.Rec.Anlog 100 Unit/Ml 10 Ml Vial) 40 unit SUBCUT DAILY [facility] Last Admin: 09/12/24 08:52 Dose: 40 unit Insulin Human Lispro (Insulin Lispro 100 Unit/Ml 3 Ml Vial) 0 unit SUBCUT QIDACHS [facility]; Protocol Last Admin: 09/12/24 21:32 Dose: 8 unit Loratadine (Loratadine 10 Mg Tablet) 10 mg PO DAILY [facility] Last Admin: 09/12/24 08:56 Dose: 10 mg Magnesium Hydroxide (Milk Of Magnesia 30 Ml Oral.Susp) 30 ml PO DAILY PRN PRN Reason: Constipation Mirtazapine (Mirtazapine 7.5 Mg Tablet) 7.5 mg PO BEDTIME [facility] Last Admin: 09/12/24 21:17 Dose: 7.5 mg Montelukast Sodium (Montelukast Sodium 10 Mg Tablet) 10 mg PO DAILY [facility] Last Admin: 09/12/24 08:57 Dose: 10 mg Mupirocin (Mupirocin 2 % Oint 22 Gm Tube) 1 appl TOPICAL TID [facility]; Protocol Last Admin: 09/12/24 21:34 Dose: 1 appl Naltrexone HCl (Naltrexone Hcl 50 Mg Tablet) 50 mg PO DAILY [facility] Last Admin: 09/12/24 08:55 Dose: 50 mg Nicotine (Nicotine 21 Mg Patch.Td24) 21 mg TRANSDERMA DAILY [facility] Last Admin: 09/12/24 09:02 Dose: Not Given Nicotine (Nicotine 14 Mg Patch.Td24) 14 mg TRANSDERMA DAILY PRN PRN Reason: nicotine cravings Pravastatin Sodium (Pravastatin Sodium 20 Mg Tablet) 20 mg PO DAILY [facility] Last Admin: 09/12/24 08:55 Dose: 20 mg Senna (Sennosides 8.6 Mg Tablet) 8.6 mg PO DAILY PRN PRN Reason: constipation Sumatriptan Succinate (Sumatriptan Succinate 50 Mg Tablet) 50 mg PO DAILY PRN PRN Reason: migraine Last Admin: 09/10/24 13:31 Dose: 50 mg Trazodone HCl (Trazodone Hcl 100 Mg Tablet) 100 mg PO BEDTIME PRN PRN Reason: Sleep Last Admin: 09/12/24 21:17 Dose: 100 mg Trazodone HCl (Trazodone Hcl 50 Mg Tablet) 50 mg PO BEDTIME MRX1 PRN PRN Reason: Insomnia Last Admin: 09/08/24 22:20 Dose: 50 mg Valsartan (Valsartan 80 Mg Tablet) 80 mg PO DAILY [facility]; Protocol Last Admin: 09/12/24 08:56 Dose: 80 mg Allergies Allergies Allergy/AdvReac Type Severity Reaction Status Date / Time ibuprofen [IBUPROFEN] Allergy Severe LIGHTHEADED;FEELS Verified 09/04/24 22:05 LIKE CHEST IS CLOSING IN;CLAUSTROPHOBIC Seasonal Allergies Allergy Severe Sneezing Verified 09/04/24 22:05 Assessment & Plan Assessment & Plan (1) PTSD (post-traumatic stress disorder): Status: Acute Code(s): F43.10 - Post-traumatic stress disorder, unspecified (2) MDD (major depressive disorder), recurrent episode, moderate: Status: Acute Code(s): F33.1 - Major depressive disorder, recurrent, moderate (3) Alcohol use disorder: Status: Acute Code(s): F10.90 - Alcohol use, unspecified, uncomplicated Plan 49-year-old woman with history of depression, PTSD and polysubstance dependence/abuse. Suicidal ideations and minor attempts in reaction to her current situation with housing and lack of support. Current medication was continued. She was placed on a CIWA protocol/Ativan. 09/07: Continue current regimen and plans 09/09/24: Mirtazapine 7.5 mg HS 09/11: Encourage participation in her care planning. 09/12: Continue current regime Looking at rehab options for next week. 09/13 hoping to go to [facility]-next week not sure what other options will be for her if not- Reason for continued inpatient stay Substantial Risk for: rapid decompensation Time Spent With Patient Time: Total time managing care of this patient today ____ minutes.
[2024-09-13 08:33] VITALS: BP 101/62; PULSE 70; RESP 16; TEMP 36.7; O2SAT 93
[2024-09-13] MEDS: DULoxetine HCl 20 MG CAPSULE.DR 40 MG PO (08:56)
[2024-09-13] MEDS: Pravastatin Sodium 20 MG TABLET PO (08:56)
[2024-09-13] MEDS: Loratadine 10 MG TABLET PO (08:56)
[2024-09-13] MEDS: Naltrexone HCl 50 MG TABLET PO (08:56)
[2024-09-13] MEDS: Montelukast Sodium 10 MG TABLET PO (08:56)
[2024-09-13] MEDS: Insulin Glargine,Hum.rec.anlog 100 UNIT/ML 10 ML VIAL 40 UNIT SUBCUT (08:57)
[2024-09-13] MEDS: Valsartan 80 MG TABLET PO (08:57)
[2024-09-13] MEDS: Insulin Lispro 100 UNIT/ML 3 ML VIAL SUBCUT ×4 (08:57→20:45)
[2024-09-13] MEDS: Mupirocin 2 % Oint 22 GM TUBE 1 APPL TOPICAL ×3 (09:06→20:43)
[2024-09-13] MEDS: Fluticasone/Vilanterol 200/25 BLST.W.DEV 1 PUFF INHALE (09:06)
[2024-09-13] MEDS: Albuterol Sulfate 90 MCG 8 GM INHALER 2 PUFF INHALE (09:06)
[2024-09-13] MEDS: Fluticasone Propionate Nasal 16 GM SPRAY 2 SPRAY NOSTRIL-B (09:06)
--- NOTE | 2024-09-13 11:46 | PC.NURSE ---
t showered after receiving Mupirocin, 3pm dose administered early
[2024-09-13 12:05] LABS: Glucose, Whole Blood 50 mg/dL (60-115)
[2024-09-13 12:53] LABS: Glucose, Whole Blood 174 mg/dL (60-115)
[2024-09-13 17:09] LABS: Glucose, Whole Blood 291 mg/dL (60-115)
[2024-09-13 20:00] VITALS: BP 122/54; PULSE 74; TEMP 36.4; O2SAT 95
[2024-09-13 20:34] LABS: Glucose, Whole Blood 245 mg/dL (60-115)
[2024-09-13] MEDS: traZODone HCL 100 MG TABLET PO (20:43)
[2024-09-13] MEDS: Mirtazapine 7.5 MG TABLET PO (20:43)
[2024-09-13] MEDS: clonazePAM 1 MG TABLET PO (20:43)
[2024-09-13] MEDS: hydrOXYzine HCL 25 MG TABLET PO (20:51)
[2024-09-14] MEDS: Doxycycline Monohydrate 100 MG CAPSULE PO ×2 (06:30→18:24)
[2024-09-14 07:52] LABS: Glucose, Whole Blood 285 mg/dL (60-115)
[2024-09-14 08:00] VITALS: BP 126/60; PULSE 57; RESP 16; TEMP 36.3; O2SAT 93
[2024-09-14 08:47] VITALS: BP 120/60
[2024-09-14] MEDS: Mupirocin 2 % Oint 22 GM TUBE 1 APPL TOPICAL (08:47)
[2024-09-14] MEDS: Fluticasone Propionate Nasal 16 GM SPRAY 2 SPRAY NOSTRIL-B (08:47)
[2024-09-14] MEDS: Fluticasone/Vilanterol 200/25 BLST.W.DEV 1 PUFF INHALE (08:47)
[2024-09-14] MEDS: DULoxetine HCl 20 MG CAPSULE.DR 40 MG PO (08:47)
[2024-09-14] MEDS: Valsartan 80 MG TABLET PO (08:47)
[2024-09-14] MEDS: Albuterol Sulfate 90 MCG 8 GM INHALER 2 PUFF INHALE (08:47)
[2024-09-14] MEDS: Insulin Lispro 100 UNIT/ML 3 ML VIAL SUBCUT ×3 (08:48→20:39)
[2024-09-14] MEDS: Naltrexone HCl 50 MG TABLET PO (08:48)
[2024-09-14] MEDS: Montelukast Sodium 10 MG TABLET PO (08:48)
[2024-09-14] MEDS: Loratadine 10 MG TABLET PO (08:48)
[2024-09-14] MEDS: Pravastatin Sodium 20 MG TABLET PO (08:48)
[2024-09-14] MEDS: Insulin Glargine,Hum.rec.anlog 100 UNIT/ML 10 ML VIAL 40 UNIT SUBCUT (08:49)
--- NOTE | 2024-09-14 11:37 | HO.PSYCHPN ---
Subjective Subjective Date of Service: 09/14/24 Reason For Visit: SI Subjective Notes: Conditional Voluntary Healthcare Proxy: No Guardianship: No Medical Problems Affecting Mental Status: No Interim History: Reports she spoke with her bf who will try and get out in 30 days from his program if he can- her alternative plan is to stay at [facility] fro 65$ per week if not able to get into [facility] program. Pt continues sad about situation but no si tolerating meds no side effects and hoping for the best Medication Compliance: Yes Side effects from medications: No Attending Groups: Yes Review of Systems Acute medical concerns: No Medical Review of Systems: unchanged Mental Status Exam Mental Status Exam Patient Appearance: Well Grooomed and Appropriate Patient Orientation: Person, Place, Time and Situation Level of Consciousness: Awake Patient Behavior: Appropriate and Cooperative Mood Description: Sad Affect Description: Appropriate Patient Cognition Impaired: No Ability to Follow Directions: Good Speech Pattern: Clear Memory Description: Intact Hallucinations: None Delusions: Not Present Thought Process: Intact and Goal Oriented Judgement: Good Diagnostics Vital Signs (24Hr): Vital Signs - 24 hr 09/13/24 20:00 09/14/24 08:00 09/14/24 08:47 Temperature 97.5 F 97.4 F Pulse Rate 74 57 Respiratory Rate 16 Blood Pressure 122/54 L 126/60 120/60 Pulse Oximetry 95 93 Oxygen Delivery Method Room Air Room Air BMI result Body Mass Index 31.3 Labs 09/05/24 14:02 09/06/24 09:19 Labs: Laboratory Results - last 48 hr 09/12/24 09/12/24 09/12/24 12:24 16:57 20:12 POC Glucose 221 H 254 H 252 H 09/12/24 09/13/24 09/13/24 21:01 07:53 12:01 POC Glucose 251 H 392 H* 50 L* 09/13/24 09/13/24 09/13/24 12:50 17:05 20:28 POC Glucose 174 H 291 H 245 H 09/14/24 07:48 POC Glucose 285 H Medications Medications Current Medications Acetaminophen (Acetaminophen 325 Mg Tablet) 650 mg PO Q6H PRN PRN Reason: Headache/Pain, Scale 1-10 Last Admin: 09/09/24 17:14 Dose: 650 mg Al Hydroxide/Mg Hydroxide (Magnesium Hydrox/Alum Hydrox 30 Ml Oral.Susp) 30 ml PO Q6H PRN PRN Reason: Heartburn/Nausea Last Admin: 09/11/24 20:32 Dose: 30 ml Albuterol Sulfate (Albuterol Sulfate 90 Mcg 8 Gm Inhaler) 2 puff INHALE Q6H PRN PRN Reason: wheezing Last Admin: 09/14/24 08:47 Dose: 2 puff Albuterol/Ipratropium (Albuterol/Iprat 2.5/0.5mg 3 Ml Ampul.Neb) 3 ml INHALE QID PRN PRN Reason: wheezing Clonazepam (Clonazepam 1 Mg Tablet) 1 mg PO BEDTIME PRN PRN Reason: Sleep Last Admin: 09/13/24 20:43 Dose: 1 mg Dextrose (Dextrose 50 % 25 Gm/50 Ml Syringe) 25 gm IVPUSH Q15M PRN; Protocol PRN Reason: per Hypoglycemia Standing Ord. Docusate Sodium (Docusate Sodium 100 Mg Capsule) 100 mg PO BID PRN PRN Reason: constipation Doxycycline Monohydrate (Doxycycline Monohydrate 100 Mg Capsule) 100 mg PO Q12H [facility] Stop: 09/15/24 17:59 Last Admin: 09/14/24 06:30 Dose: 100 mg Duloxetine HCl (Duloxetine Hcl 20 Mg Capsule.Dr) 40 mg PO DAILY [facility] Last Admin: 09/14/24 08:47 Dose: 40 mg Fluticasone Propionate (Fluticasone Propionate Nasal 16 Gm [place]) 2 spray NOSTRIL-B DAILY [facility] Last Admin: 09/14/24 08:47 Dose: 2 spray Fluticasone/Vilanterol (Fluticasone/Vilanterol 200/25 Blst.W.Dev) 1 puff INHALE RDAILY [facility] Last Admin: 09/14/24 08:47 Dose: 1 puff Glucagon (Glucagon Hcl 1 Mg Vial) 1 mg SUBCUT ONCE PRN PRN Reason: NEEDED FOR HYPOGLYCERMIA Glucose (Glucose Gel 15 Gm Gel..Gram.) 15 gm PO Q15M PRN; Protocol PRN Reason: per Hypoglycemia Standing Ord. Hydroxyzine HCl (Hydroxyzine Hcl 25 Mg Tablet) 25 mg PO Q6H PRN PRN Reason: mild anxiety Last Admin: 09/13/24 20:51 Dose: 25 mg Insulin Glargine (Insulin Glargine,Hum.Rec.Anlog 100 Unit/Ml 10 Ml Vial) 40 unit SUBCUT DAILY [facility] Last Admin: 09/14/24 08:49 Dose: 40 unit Insulin Human Lispro (Insulin Lispro 100 Unit/Ml 3 Ml Vial) 0 unit SUBCUT QIDACHS [facility]; Protocol Last Admin: 09/14/24 08:48 Dose: 8 unit Loratadine (Loratadine 10 Mg Tablet) 10 mg PO DAILY [facility] Last Admin: 09/14/24 08:48 Dose: 10 mg Magnesium Hydroxide (Milk Of Magnesia 30 Ml Oral.Susp) 30 ml PO DAILY PRN PRN Reason: Constipation Mirtazapine (Mirtazapine 7.5 Mg Tablet) 7.5 mg PO BEDTIME [facility] Last Admin: 09/13/24 20:43 Dose: 7.5 mg Montelukast Sodium (Montelukast Sodium 10 Mg Tablet) 10 mg PO DAILY [facility] Last Admin: 09/14/24 08:48 Dose: 10 mg Mupirocin (Mupirocin 2 % Oint 22 Gm Tube) 1 appl TOPICAL TID [facility]; Protocol Last Admin: 09/14/24 08:47 Dose: 1 appl Naltrexone HCl (Naltrexone Hcl 50 Mg Tablet) 50 mg PO DAILY [facility] Last Admin: 09/14/24 08:48 Dose: 50 mg Nicotine (Nicotine 21 Mg Patch.Td24) 21 mg TRANSDERMA DAILY [facility] Last Admin: 09/14/24 09:46 Dose: Not Given Nicotine (Nicotine 14 Mg Patch.Td24) 14 mg TRANSDERMA DAILY PRN PRN Reason: nicotine cravings Pravastatin Sodium (Pravastatin Sodium 20 Mg Tablet) 20 mg PO DAILY [facility] Last Admin: 09/14/24 08:48 Dose: 20 mg Senna (Sennosides 8.6 Mg Tablet) 8.6 mg PO DAILY PRN PRN Reason: constipation Sumatriptan Succinate (Sumatriptan Succinate 50 Mg Tablet) 50 mg PO DAILY PRN PRN Reason: migraine Last Admin: 09/10/24 13:31 Dose: 50 mg Trazodone HCl (Trazodone Hcl 100 Mg Tablet) 100 mg PO BEDTIME PRN PRN Reason: Sleep Last Admin: 09/13/24 20:43 Dose: 100 mg Trazodone HCl (Trazodone Hcl 50 Mg Tablet) 50 mg PO BEDTIME MRX1 PRN PRN Reason: Insomnia Last Admin: 09/08/24 22:20 Dose: 50 mg Valsartan (Valsartan 80 Mg Tablet) 80 mg PO DAILY [facility]; Protocol Last Admin: 09/14/24 08:47 Dose: 80 mg Allergies Allergies Allergy/AdvReac Type Severity Reaction Status Date / Time ibuprofen [IBUPROFEN] Allergy Severe LIGHTHEADED;FEELS Verified 09/04/24 22:05 LIKE CHEST IS CLOSING IN;CLAUSTROPHOBIC Seasonal Allergies Allergy Severe Sneezing Verified 09/04/24 22:05 Assessment & Plan Assessment & Plan (1) PTSD (post-traumatic stress disorder): Status: Acute Code(s): F43.10 - Post-traumatic stress disorder, unspecified (2) MDD (major depressive disorder), recurrent episode, moderate: Status: Acute Code(s): F33.1 - Major depressive disorder, recurrent, moderate (3) Alcohol use disorder: Status: Acute Code(s): F10.90 - Alcohol use, unspecified, uncomplicated Plan 49-year-old woman with history of depression, PTSD and polysubstance dependence/abuse. Suicidal ideations and minor attempts in reaction to her current situation with housing and lack of support. Current medication was continued. She was placed on a CIWA protocol/Ativan. 09/07: Continue current regimen and plans 09/09/24: Mirtazapine 7.5 mg HS 09/11: Encourage participation in her care planning. 09/12: Continue current regime Looking at rehab options for next week. 09/13 hoping to go to [facility]-next week not sure what other options will be for her if not- 09/14-has plan b, if [facility] doesn't accept her - CTP Patient educated on: other Informed Consent: understands Reason for continued inpatient stay Substantial Risk for: rapid decompensation Time Spent With Patient Time: Total time managing care of this patient today ____ minutes.
[2024-09-14 12:07] LABS: Glucose, Whole Blood 304 mg/dL (60-115)
[2024-09-14] MEDS: SUMAtriptan succinate 50 MG TABLET PO (13:39)
[2024-09-14 17:18] LABS: Glucose, Whole Blood 102 mg/dL (60-115)
[2024-09-14 19:38] VITALS: BP 137/74; PULSE 71; TEMP 36.3; O2SAT 95
[2024-09-14 20:09] LABS: Glucose, Whole Blood 228 mg/dL (60-115)
[2024-09-14] MEDS: clonazePAM 1 MG TABLET PO (20:40)
[2024-09-14] MEDS: traZODone HCL 100 MG TABLET PO (20:40)
[2024-09-14] MEDS: hydrOXYzine HCL 25 MG TABLET PO (20:40)
[2024-09-14] MEDS: Mirtazapine 7.5 MG TABLET PO (20:40)
[2024-09-15] MEDS: Doxycycline Monohydrate 100 MG CAPSULE PO (05:51)
[2024-09-15 07:50] LABS: Glucose, Whole Blood 412 mg/dL (60-115)
[2024-09-15 07:57] VITALS: BP 106/56; PULSE 62; TEMP 35.9; O2SAT 90
[2024-09-15] MEDS: Fluticasone Propionate Nasal 16 GM SPRAY 2 SPRAY NOSTRIL-B (08:14)
[2024-09-15] MEDS: Albuterol Sulfate 90 MCG 8 GM INHALER 2 PUFF INHALE (08:14)
[2024-09-15] MEDS: Fluticasone/Vilanterol 200/25 BLST.W.DEV 1 PUFF INHALE (08:14)
[2024-09-15] MEDS: Insulin Glargine,Hum.rec.anlog 100 UNIT/ML 10 ML VIAL 40 UNIT SUBCUT (08:14)
[2024-09-15] MEDS: Insulin Lispro 100 UNIT/ML 3 ML VIAL SUBCUT ×2 (08:15→12:05)
[2024-09-15] MEDS: Pravastatin Sodium 20 MG TABLET PO (08:16)
[2024-09-15] MEDS: Naltrexone HCl 50 MG TABLET PO (08:16)
[2024-09-15] MEDS: DULoxetine HCl 20 MG CAPSULE.DR 40 MG PO (08:16)
[2024-09-15] MEDS: Loratadine 10 MG TABLET PO (08:16)
[2024-09-15] MEDS: Montelukast Sodium 10 MG TABLET PO (08:17)
[2024-09-15] MEDS: Valsartan 80 MG TABLET PO (08:17)
[2024-09-15] MEDS: Mupirocin 2 % Oint 22 GM TUBE 1 APPL TOPICAL (10:41)
[2024-09-15 12:00] LABS: Glucose, Whole Blood 140 mg/dL (60-115)
[2024-09-15] MEDS: hydrOXYzine HCL 25 MG TABLET PO (12:07)
--- NOTE | 2024-09-15 13:16 | P.DS_ITS ---
DS: Providers Provider Date of admission: 09/05/24 18:54 Primary care physician: Unknown Physician Consults: 09/05/24 18:55 Consult to Hospitalist Routine Comment: Consulting Provider: [facility] Hospitalists Reason For Exam: uncontrolled DM, adjust meds 09/06/24 00:21 Addiction Medicine Provider Routine Consulting Provider: Addiction Covering Reason for consultation: NEW ADMIT. MEETS AUDIT DS: Diagnosis Discharge Diagnosis (1) PTSD (post-traumatic stress disorder): Status: Acute (2) MDD (major depressive disorder), recurrent episode, moderate: Status: Acute (3) Alcohol use disorder: Status: Acute DS: Medications Discharge Medications Home Medications: Previous Rx's ?Medication ?Instructions ?Recorded albuterol sulfate 90 mcg/actuation 2 puff inhalation Q6H PRN wheezing 09/15/24 aerosol inhaler (Ventolin HFA) #1 inhaler cetirizine 10 mg tablet 10 mg PO DAILY #30 tabs 09/15/24 clonazepam 1 mg tablet 1 mg PO BEDTIME PRN Sleep #7 tabs 09/15/24 docusate sodium 100 mg capsule 100 mg PO BID PRN constipation #60 09/15/24 caps doxycycline hyclate 100 mg capsule 100 mg PO BID #2 caps 09/15/24 duloxetine 20 mg capsule,delayed 40 mg (2 x 20 mg) PO DAILY #60 caps 09/15/24 release fluticasone 500 mcg-salmeterol 50 1 ea inhalation BID #1 inhaler 09/15/24 mcg/dose blistr powdr for inhalation (Advair Diskus) fluticasone propionate 50 2 spray intranasal DAILY #1 inhaler 09/15/24 mcg/actuation nasal spray,suspension glucagon 1 mg solution for 1 mg subcut NEEDED PRN 09/15/24 injection (Glucagon Emergency Kit) hypoglycemia #1 kit hydroxyzine HCl 25 mg tablet 25 mg PO Q6H PRN mild anxiety #30 09/15/24 tabs insulin glargine 100 unit/mL (3 40 unit (0.4 mL) subcut QPM #15 mL 09/15/24 mL) subcutaneous pen insulin lispro 100 unit/mL 1 sliding scale dose subcut 09/15/24 subcutaneous pen USEASDIRECTD #15 mL ipratropium 0.5 mg-albuterol 3 mg 3 ml inhalation QID PRN wheezing 09/15/24 (2.5 mg base)/3 mL nebulization #100 mL soln lovastatin 20 mg tablet 20 mg PO DAILY #30 tabs 09/15/24 mirtazapine 7.5 mg tablet 7.5 mg PO BEDTIME #30 tabs 09/15/24 montelukast 10 mg tablet 10 mg PO DAILY #30 tabs 09/15/24 mupirocin 2 % topical ointment 1 appl topical TID #50 grams 09/15/24 naltrexone 50 mg tablet 50 mg PO DAILY #30 tabs 09/15/24 sennosides 8.6 mg capsule (senna) 8.6 mg PO DAILY PRN constipation 09/15/24 #30 caps sumatriptan succinate 50 mg tablet 50 mg PO DAILY MRX1 PRN migraine 09/15/24 #30 tabs trazodone 100 mg tablet 100 mg PO BEDTIME PRN Sleep #30 09/15/24 tabs valsartan 80 mg tablet 80 mg PO DAILY #30 tabs 09/15/24 Data Data Completed and Pending Completed studies during hospitalization [Text1]: 09/08/24 09/08/24 09/09/24 17:28 20:35 08:26 POC Glucose 242 H 303 H 271 H 09/09/24 09/09/24 09/09/24 11:35 17:03 20:14 POC Glucose 277 H 111 236 H 09/10/24 09/10/24 09/10/24 08:09 12:14 17:13 POC Glucose 177 H 313 H 95 09/10/24 09/11/24 09/11/24 21:10 08:00 12:06 POC Glucose 170 H 439 H* 227 H 09/11/24 09/11/24 09/12/24 17:18 20:26 07:46 POC Glucose 162 H 134 H 198 H 09/12/24 09/12/24 09/12/24 12:24 16:57 20:12 POC Glucose 221 H 254 H 252 H 09/12/24 09/13/24 09/13/24 21:01 07:53 12:01 POC Glucose 251 H 392 H* 50 L* 09/13/24 09/13/24 09/13/24 12:50 17:05 20:28 POC Glucose 174 H 291 H 245 H 09/14/24 09/14/24 09/14/24 07:48 12:02 17:13 POC Glucose 285 H 304 H 102 09/14/24 09/15/24 09/15/24 20:06 07:46 11:55 POC Glucose 228 H 412 H* 140 H DS: Summary Time Spent with Patient Time attestation: Total time managing care of this patient today ____ minutes. Discharge Plan Discharge Anticipated Discharge Date/Time: 09/15/24 14:00 Patient Disposition: Correction Discharge Diagnosis: PTSD Recurrent Major Depression Alcohol Use Disorder Referrals: [facility]ry with JOHANN LAW [Other] - 10/17/24 11:00 am (Telehealth ) [facility] Therapy with MERNA [facility]KI [Other] - 09/16/24 4:30 pm (In Person. If you cannot make this appointment call them to let Merna know. Your referral for a conditioning coach can be made through your therapist. ) [facility] Therapy with MERNA MAKI [Other] - 09/23/24 4:30 pm Nilton Parikh MD [Physician] - 1 Week (Office will call pt with follow up appointment ) Discharge Medications: New hydroxyzine HCl 25 mg Tablet 25 mg PO Q6H PRN (Reason: mild anxiety) Qty: 30 0RF mirtazapine 7.5 mg Tablet 7.5 mg PO BEDTIME Qty: 30 0RF mupirocin 2 % Ointment 1 appl topical TID Qty: 50 0RF Protocol: Apply to: Apply to: area of concern doxycycline hyclate 100 mg capsule 100 mg PO BID Qty: 2 0RF insulin glargine 100 unit/mL (3 mL) insulin pen 40 unit subcut QPM Qty: 15 0RF insulin lispro 100 unit/mL insulin pen 1 sliding scale dose subcut USEASDIRECTD Qty: 15 0RF Continued ipratropium-albuterol 0.5 mg-3 mg(2.5 mg base)/3 mL solution for nebulization 3 ml inhalation QID PRN (Reason: wheezing) Qty: 100 0RF cetirizine 10 mg Tablet 10 mg PO DAILY Qty: 30 0RF naltrexone 50 mg Tablet 50 mg PO DAILY Qty: 30 0RF clonazepam 1 mg Tablet 1 mg PO BEDTIME PRN (Reason: Sleep) Qty: 7 4RF Rx Instructions: administer 30 minutes before bedtime sumatriptan succinate 50 mg Tablet 50 mg PO DAILY MRX1 PRN (Reason: migraine) Qty: 30 0RF valsartan 80 mg Tablet 80 mg PO DAILY Qty: 30 0RF trazodone 100 mg Tablet 100 mg PO BEDTIME PRN (Reason: Sleep) Qty: 30 0RF fluticasone propion-salmeterol [Advair Diskus] 500-50 mcg/dose blister with device 1 ea inhalation BID Qty: 1 0RF docusate sodium 100 mg capsule 100 mg PO BID PRN (Reason: constipation) Qty: 60 0RF montelukast 10 mg Tablet 10 mg PO DAILY Qty: 30 0RF Glucagon Emergency Kit (human) 1 mg recon soln 1 mg subcut NEEDED PRN (Reason: hypoglycemia) Qty: 1 0RF lovastatin 20 mg Tablet 20 mg PO DAILY Qty: 30 0RF albuterol sulfate [Ventolin HFA] 90 mcg/actuation HFA aerosol inhaler 2 puff inhalation Q6H PRN (Reason: wheezing) Qty: 1 0RF fluticasone propionate 50 mcg/actuation [place],Suspension 2 spray INTRANASAL DAILY Qty: 1 0RF Rx Instructions: administer into each nostril senna 8.6 mg capsule 8.6 mg PO DAILY PRN (Reason: constipation) Qty: 30 1RF duloxetine 20 mg Capsule,Delayed Release(Dr/Ec) 40 mg PO DAILY Qty: 60 0RF Discontinued insulin lispro 100 unit/mL solution 0 - 80 unit subcut DAILY nicotine 21 mg/24 hr Patch 24 Hour 1 patch TRANSDERMAL DAILY mupirocin 2 % Ointment 1 appl TOPICAL TID Protocol: Apply to: Apply to: right ear rash Discharge Orders: Discharge Order (Routine); Ordered 09/15/24 Ordered By: Brenda Vu Diet: Advance to usual diet Activity on Discharge: As tolerated Stand Alone Forms: Patient Portal Discharge page, Community Support Print Language: Greek Care Plan Goals: Abstinence from substances Mood and Behavioral Stabilization Health Concerns: Abstinence from substances Mood and Behavioral Stabilization Plan of Treatment: Attend scheduled appointments Take medications as directed Call/Return as needed Assessment: No SI,HI,AH,VH No symptoms of acute illness Pt agrees with plan of care Transfer to [facility].
== END 2024-09-15 14:41 | disposition home or self-care (01) | DRG 751 ==
LOC: HO.ED 09-05 19:07 → HO.PM5 09-05 19:10
PROVIDERS: Emergency Medicine; Physician Assistant Medical; Psychiatry & Neurology Psychiatry; Admitting Provider Social Worker; Emergency Provider Emergency Medicine Emergency Medical Services; Visit Provider Clinical Nurse Specialist Psychiatric/Mental Health, Adult
DX: F33.1 Major depressive disorder, recurrent, moderate (principal); R45.851 Suicidal ideations; E10.9 Type 1 diabetes mellitus without complications; F43.10 Post-traumatic stress disorder, unspecified; F19.20 Other psychoactive substance dependence, uncomplicated; F17.210 Nicotine dependence, cigarettes, uncomplicated; Y90.6 Blood alcohol level of 120-199 mg/100 ml; F10.90 Alcohol use, unspecified, uncomplicated; Z71.6 Tobacco abuse counseling; Z20.822 Contact with and (suspected) exposure to COVID-19; Z79.51 Long term (current) use of inhaled steroids; Z79.4 Long term (current) use of insulin; Z79.899 Other long term (current) drug therapy
CPT/HCPCS: 0241U; 36415; 80053; 80061; 80307; 81001; 82607; 82746; 82947; 83036; 84443; 85025; 93005; 99285; J1200; J1630; J2060; S9485

== ENCOUNTER → 2024-09-05 09:54 | Outpatient (BNV) | payer OTHER, SELFPAY | PROVIDERS: Emergency Provider Emergency Medicine; Visit Provider Internal Medicine Cardiovascular Disease | DX: R94.31 Abnormal electrocardiogram [ECG] [EKG] (principal) | CPT/HCPCS: 93010 ==

== ENCOUNTER → 2024-09-05 18:54 | Outpatient (BNV) | payer OTHER, SELFPAY | PROVIDERS: Admitting Provider Social Worker; Emergency Provider Emergency Medicine Emergency Medical Services; Visit Provider Psychiatry & Neurology Psychiatry | DX: F33.1 Major depressive disorder, recurrent, moderate (principal); F43.11 Post-traumatic stress disorder, acute; F10.90 Alcohol use, unspecified, uncomplicated | CPT/HCPCS: 99232 ==

== ENCOUNTER 2025-01-30 12:05 | Emergency (ER) | payer OTHER, SELFPAY ==
--- NOTE | 2025-01-30 12:09 | PC.NURSE ---
patients significant other came to registration asking for narcan for patient as he stated she overdosed, this nurse obtained narcan went out to vehicle, security and tech assisting, pt was found eyes open, very shallow breathing, sternal rub performed with reaction to painful stimulus, sprayed 1 narcan to right nare, this nurse extricated the patient to stretcher with assist of tech. pt was transported to the back.
--- NOTE | 2025-01-30 12:10 | ECG_ITS ---
Test Reason : OD Blood Pressure : */* mmHG Vent. Rate : 114 BPM Atrial Rate : 114 BPM P-R Int : 156 ms QRS Dur : 84 ms QT Int : 348 ms P-R-T Axes : 58 28 56 degrees QTcB Int : 479 ms Sinus tachycardia Anterior infarct (cited on or before 26-May-2024) Abnormal ECG When compared with ECG of 05-Sep-2024 10:32, No significant change was found Referred By: Kasi Davis Electronically Signed By: THEODORE JON MD
--- NOTE | 2025-01-30 12:14 | ED.OVERDOSE ---
HPI - Overdose General Chief Complaint: Overdose Stated Complaint: OD? Time Seen by Provider: 01/30/25 12:14 Source: patient Mode of arrival: ambulatory Limitations: no limitations History of Present Illness ED Provider: Dr. Kasi Davis HPI Narrative: 50-year-old female with a history of diabetes mellitus, asthma, cocaine use disorder, heroin use disorder who presents emergency department for evaluation of accidental overdose on heroin. Patient states that she smoked crack cocaine and she snorted 2 bags of heroin. The patient then passed out. The patient's fiancee drove the patient to the emergency department. ED staff administered 4 mg of intranasal Narcan and the patient became responsive. The patient states that she has been under increased stress since she has not getting along with her matt's daughter. Patient states that she uses intranasal heroin several times a week. She states that she is normally compliant with her insulin but she states she ran out of her Lantus. Related Data Previous Rx's ?Medication ?Instructions ?Recorded albuterol sulfate 90 mcg/actuation 2 puff inhalation Q6H PRN wheezing 09/15/24 aerosol inhaler (Ventolin HFA) #1 inhaler cetirizine 10 mg tablet 10 mg PO DAILY #30 tabs 09/15/24 clonazepam 1 mg tablet 1 mg PO BEDTIME PRN Sleep #7 tabs 09/15/24 docusate sodium 100 mg capsule 100 mg PO BID PRN constipation #60 09/15/24 caps doxycycline hyclate 100 mg capsule 100 mg PO BID #2 caps 09/15/24 duloxetine 20 mg capsule,delayed 40 mg (2 x 20 mg) PO DAILY #60 caps 09/15/24 release fluticasone 500 mcg-salmeterol 50 1 ea inhalation BID #1 inhaler 09/15/24 mcg/dose blistr powdr for inhalation (Advair Diskus) fluticasone propionate 50 2 spray intranasal DAILY #1 inhaler 09/15/24 mcg/actuation nasal spray,suspension glucagon 1 mg solution for 1 mg subcut NEEDED PRN 09/15/24 injection (Glucagon Emergency Kit) hypoglycemia #1 kit hydroxyzine HCl 25 mg tablet 25 mg PO Q6H PRN mild anxiety #30 09/15/24 tabs insulin glargine 100 unit/mL (3 40 unit (0.4 mL) subcut QPM #15 mL 03/17/25 mL) subcutaneous pen insulin lispro 100 unit/mL 1 sliding scale dose subcut 09/15/24 subcutaneous pen USEASDIRECTD #15 mL ipratropium 0.5 mg-albuterol 3 mg 3 ml inhalation QID PRN wheezing 09/15/24 (2.5 mg base)/3 mL nebulization #100 mL soln lovastatin 20 mg tablet 20 mg PO DAILY #30 tabs 09/15/24 mirtazapine 7.5 mg tablet 7.5 mg PO BEDTIME #30 tabs 09/15/24 montelukast 10 mg tablet 10 mg PO DAILY #30 tabs 09/15/24 mupirocin 2 % topical ointment 1 appl topical TID #50 grams 09/15/24 naltrexone 50 mg tablet 50 mg PO DAILY #30 tabs 09/15/24 sennosides 8.6 mg capsule (senna) 8.6 mg PO DAILY PRN constipation 09/15/24 #30 caps sumatriptan succinate 50 mg tablet 50 mg PO DAILY MRX1 PRN migraine 09/15/24 #30 tabs trazodone 100 mg tablet 100 mg PO BEDTIME PRN Sleep #30 09/15/24 tabs valsartan 80 mg tablet 80 mg PO DAILY #30 tabs 09/15/24 albuterol sulfate 90 mcg/actuation 2 puff inhalation Q4-6H PRN 01/30/25 aerosol inhaler (Ventolin HFA) shortness of breath or wheezing #8.5 grams insulin glargine 100 unit/mL (3 30 unit (0.3 mL) subcut QPM #15 mL 01/30/25 mL) subcutaneous pen (Lantus Solostar U-100 Insulin) Allergies Allergy/AdvReac Type Severity Reaction Status Date / Time ibuprofen (IBUPROFEN) Allergy Severe LIGHTHEADED;FEELS Verified 01/30/25 12:28 LIKE CHEST IS CLOSING IN;CLAUSTROPHOBIC Seasonal Allergies Allergy Severe Sneezing Verified 01/30/25 12:28 Review of Systems Review of Systems: Yes all other systems are reviewed and are negative [facility] Past Medical History [facility] Narrative: : Patient does smoke cigarettes. She denies alcohol use. She admits to using intranasal heroin and crack cocaine. Medical History Shoulder pain with history of repair of rotator cuff PTSD (post-traumatic stress disorder) MDD (major depressive disorder), recurrent episode, moderate Opioid use disorder Hypoxia Moderate obesity Hypercapnic respiratory failure, chronic Asthma Drug overdose Diabetes Transaminitis Pneumonia Pneumonia Post-tubal ligation syndrome Drug abuse in remission Asthma Diabetic acetonemia Surgical History H/O tubal ligation H/O colonoscopy Family History Family History Mother Colon cancer Lung cancer Maternal Aunt Lung cancer Social History Social History Household Members: Spouse Household Members Other:: [employer] Housing: House Do you presently have visiting nurse or other home services: No Alcohol intake: current Alcohol intake frequency: 3 or more drinks per day Alcohol type: hard liquor Comment: pt does call with help w IV pole when OOB to bathroom Patient Tobacco Use Status: Current someday Tobacco user Tobacco use type: Cigarette Cigarette Packs Per Day: 1 Cigarettes Per Day: 20 Years Smoked: 20 Smoked in Last 30 Days: Yes e-Cigarette/Vaping Use: Never Used Second Hand Smoke Exposure: No Use of substances other than those prescribed or required for medical reasons: Yes Substance Use Type: Crack/Cocaine and Heroin Advance Directives: Yes Advance Directives on File: Yes Advance Directives Date on File: 06/07/21 Do you have a plan to hurt others: No Plan Patient : No service: No Current occupational status: unemployed Sexual orientation: Straight/Heterosexual Physical Exam Vital Signs: Vital Signs: Last Vital Signs Temp 97.6 F 01/30/25 16:24 Pulse 106 H 01/30/25 16:24 Resp 13 01/30/25 16:24 BP 140/76 H 01/30/25 16:24 Pulse Ox 94 01/30/25 16:24 O2 Del Method Room Air 01/30/25 16:24 BMI result Body Mass Index 33.3 Vital signs revealed an elevated pulse of 112 Exam: General: Awake, alert in no distress Head: Normocephalic, atraumatic EENT: PERRL, Lids normal, sclera normal, conjunctiva normal, nose normal , ears normal, throat without erythema or exudates Neck: Supple, no adenopathy Lung: breath sounds symmetric, no wheezing, rales or rhonchi Chest: symmetric movement, nontender Heart: regular rate and rhythm, normal S1, S2 no murmurs or rubs Abdomen: soft, non-tender, nondistended, normal bowel sounds Back: no vertebral tenderness, no CVAT Extremities: no deformities, moves all extremities symmetrically Neuro: Awake, alert, oriented, normal speech, cranial nerves intact, moves all extremities symmetrically Psych: Pleasant, cooperative Medications Administered Discontinued Medications Generic Name Dose Route Start Last Admin Trade Name Freq PRN Reason Stop Dose Admin Albuterol Sulfate 2.5 mg/ 0 mg 01/30/25 13:23 01/30/25 13:28 Albuterol/Ipratropium 3 ml INHALE 01/30/25 13:24 1 dose ONCE ONE Administration Diphenhydramine HCl 25 mg 01/30/25 12:56 01/30/25 13:00 Diphenhydramine Hcl 50 Mg/Ml Vial IVPUSH 01/30/25 12:57 25 mg ONCE ONE Administration Sodium Chloride 1,000 mls @ 999 mls/hr 01/30/25 12:14 01/30/25 13:24 Ns IV 01/30/25 13:14 Infused .Q1H1M STA Infusion Sodium Chloride 1,000 mls @ 999 mls/hr 01/30/25 13:02 01/30/25 15:30 Ns IV 01/30/25 14:02 Infused .Q1H1M STA Infusion Insulin Glargine 30 unit 01/30/25 13:08 01/30/25 13:21 Insulin Glargine,Hum.Rec.Anlog 100 Unit/Ml 10 Ml Vial SUBCUT 01/30/25 13:09 30 unit ONCE ONE Administration Insulin Human Regular 10 unit 01/30/25 13:02 01/30/25 13:21 Insulin Regular, Human 100 Unit/Ml 10 Ml Vial IVPUSH 01/30/25 13:03 10 unit ONCE ONE Administration Insulin Human Regular 10 unit 01/30/25 15:05 01/30/25 15:14 Insulin Regular, Human 100 Unit/Ml 10 Ml Vial IVPUSH 01/30/25 15:06 10 unit ONCE ONE Administration Metoclopramide HCl 10 mg 01/30/25 12:56 01/30/25 13:00 Metoclopramide Hcl 10 Mg/2 Ml Vial IVPUSH 01/30/25 12:57 10 mg ONCE STA Administration Ondansetron HCl 4 mg 01/30/25 12:40 01/30/25 12:58 Ondansetron Hcl 4 Mg/2 Ml Vial IVPUSH 01/30/25 12:41 4 mg ONCE ONE Administration Medical Decision Making Medical Decision Making MDM Narrative: 50-year-old female with a history of diabetes mellitus, asthma, cocaine use disorder, heroin use disorder who presents emergency department for evaluation of accidental overdose on heroin. Patient states that she smoked crack cocaine and she snorted 2 bags of heroin. The patient then passed out. The patient's fiancee drove the patient to the emergency department. ED staff administered 4 mg of intranasal Narcan and the patient became responsive. The patient states that she has been under increased stress since she has not getting along with her fiafshine's daughter. Patient states that she uses intranasal heroin several times a week.She states that she is normally compliant with her insulin but she states she ran out of her Lantus. Vital signs revealed an elevated heart rate. Physical examination was unremarkable Differential diagnosis: ?Includes but is not limited to overdose from heroin, fentanyl or methadone, anemia, electrolyte abnormalities Course: 15:12 My independent interpretation patient's laboratory evaluation is as follows: WBC elevated 14,700. H&H was normal 14.5 and 41. Sodium low 128 (delusional). Bicarb low 16. Anion gap elevated 23. BUN elevated 21 with a normal creatinine of 0.99. Glucose 747. Patient has been observed in the emergency department for proximally 3 hours and she has had altered level of consciousness which is reassuring. I did order a care team/recovery team consult but this has not happened yet. Patient states she is not want to talk to the recovery team and states that she will follow up with [facility] Patient's elevated glucose is most likely secondary to noncompliance with dietary regimen and noncompliance with her insulin regimen and I did discuss this with her. Patient was treated with normal saline x1 L and regular insulin 10 units IV. Repeat point of care glucose came down to 522. I ordered a 2 L of normal saline IV and a 2nd dose of regular insulin 10 units IV. She was also given her Lantus 30 units IV. Patient did developed wheezing and she was given with albuterol 5 mg and ipratropium 0.5 mg nebulizer patient also developed nausea and vomiting who was treated with Zosyn 4 mg IV, Reglan 10 mg IV and Benadryl 25 mg IV, 16:49 Patient's repeat port of care glucose was 357 which is a reassuring trend downward. Until the patient she should increase fluid intake this evening and stay on a low-carbohydrate diet. Patient was given printed and verbal instructions and discharged home Admission/Observation Consideration of admission/observation: Escalation of care including admission/observation considered (Yes) Lab Data [facility] Lab Attestation statement: I reviewed the patient's lab results. 01/30/25 12:19 01/30/25 12:19 Labs: Lab Results 01/30/25 01/30/25 01/30/25 Range/Units 12:19 12:36 12:38 WBC 14.7 H (4.8-10.8) X10*3/uL RBC 4.95 (4.20-5.50) X10*6/uL Hgb 14.5 (12.0-16.0) g/dl Hct 41.2 (37.0-47.0) % MCV 83.2 (80.0-98.0) fL MCH 29.3 (27.0-33.0) pg MCHC 35.2 H (31.0-35.0) g/dl RDW 13.5 (11.0-16.0) % Plt Count 315 D (160-400) X10*3/uL MPV 11.6 (9.4-12.3) fL Immature Gran % (Auto) 0.3 (0.0-0.4) % Neut % (Auto) 80.0 H (45-73) % Lymph % (Auto) 16.8 L (20-40) % [place] % (Auto) 2.7 (2-11) % Eos % (Auto) 0.1 (0-4) % Baso % (Auto) 0.1 (0-2) % Lymph # (Auto) 2.5 (1.2-4.9) X10*3/uL [place] # (Auto) 0.4 (0.1-1.2) X10*3/uL Eos # (Auto) 0.0 (0.0-0.4) X10*3/uL Baso # (Auto) 0.0 (0.0-0.2) X10*3/uL Abs Immat Gran (auto) 0.05 H (0.00-0.03) X10*3/uL Absolute Neuts (auto) 11.7 H (2.0-8.3) x10*3/uL Absolute Nucleated RBC 0.000 (0.0-0.012) X10*3/uL Nucleated RBC % (auto) 0.0 (0.0-0.2) /100WBC Sodium 128 L (135-145) mmol/L Potassium 4.0 (3.3-5.1) mmol/L Chloride 93 L (96-108) mmol/L Carbon Dioxide 16 L (22-29) mmol/L Anion Gap 23 H (12-20) BUN 21 H (9-16) mg/dL Creatinine 0.99 (0.5-1.4) mg/dL Estim Creat Clear Calc 59.9 Estimated GFR 59 POC Glucose > 600 H* > 600 H* (60-115) mg/dL Random Glucose 747 H* (60-115) mg/dL Calcium 8.8 (8.4-10.2) mg/dL Total Bilirubin 0.6 (0.0-1.0) mg/dL AST 196 H (5-31) U/L ALT 186 H (0-31) U/L Alkaline Phosphatase 168 H (39-117) U/L Total Creatine Kinase 59 (26-140) U/L Total Protein 7.8 (6.5-8.0) g/dL Albumin 4.5 (3.5-5.0) g/dL Lipase 8 (8-78) U/L Urine Opiates Screen (Not Detect) Ur Buprenorphine Scrn (Not Detect) ng/mL Ur Oxycodone Screen (Not Detect) ng/mL Urine Methadone Screen (Not Detect) ng/mL Urine Fentanyl Screen (Not Detect) Ur Barbiturates Screen (Not Detect) Ur Phencyclidine Scrn (Not Detect) Ur Amphetamines Screen (Not Detect) U Benzodiazepines Scrn (Not Detect) Urine Cocaine Screen (Not Detect) U Marijuana (THC) Screen (Not Detect) Ethyl Alcohol < 10 mg/dL 01/30/25 01/30/25 01/30/25 Range/Units 12:54 15:03 15:57 WBC (4.8-10.8) X10*3/uL RBC (4.20-5.50) X10*6/uL Hgb (12.0-16.0) g/dl Hct (37.0-47.0) % MCV (80.0-98.0) fL MCH (27.0-33.0) pg MCHC (31.0-35.0) g/dl RDW (11.0-16.0) % Plt Count (160-400) X10*3/uL MPV (9.4-12.3) fL Immature Gran % (Auto) (0.0-0.4) % Neut % (Auto) (45-73) % Lymph % (Auto) (20-40) % [place] % (Auto) (2-11) % Eos % (Auto) (0-4) % Baso % (Auto) (0-2) % Lymph # (Auto) (1.2-4.9) X10*3/uL [place] # (Auto) (0.1-1.2) X10*3/uL Eos # (Auto) (0.0-0.4) X10*3/uL Baso # (Auto) (0.0-0.2) X10*3/uL Abs Immat Gran (auto) (0.00-0.03) X10*3/uL Absolute Neuts (auto) (2.0-8.3) x10*3/uL Absolute Nucleated RBC (0.0-0.012) X10*3/uL Nucleated RBC % (auto) (0.0-0.2) /100WBC Sodium (135-145) mmol/L Potassium (3.3-5.1) mmol/L Chloride (96-108) mmol/L Carbon Dioxide (22-29) mmol/L Anion Gap (12-20) BUN (9-16) mg/dL Creatinine (0.5-1.4) mg/dL Estim Creat Clear Calc Estimated GFR POC Glucose 522 H* 402 H* (60-115) mg/dL Random Glucose (60-115) mg/dL Calcium (8.4-10.2) mg/dL Total Bilirubin (0.0-1.0) mg/dL AST (5-31) U/L ALT (0-31) U/L Alkaline Phosphatase (39-117) U/L Total Creatine Kinase (26-140) U/L Total Protein (6.5-8.0) g/dL Albumin (3.5-5.0) g/dL Lipase (8-78) U/L Urine Opiates Screen POSITIVE H (Not Detect) Ur Buprenorphine Scrn Not Detected (Not Detect) ng/mL Ur Oxycodone Screen Not Detected (Not Detect) ng/mL Urine Methadone Screen Not Detected (Not Detect) ng/mL Urine Fentanyl Screen POSITIVE H (Not Detect) Ur Barbiturates Screen Not Detected (Not Detect) Ur Phencyclidine Scrn Not Detected (Not Detect) Ur Amphetamines Screen Not Detected (Not Detect) U Benzodiazepines Scrn Not Detected (Not Detect) Urine Cocaine Screen POSITIVE H (Not Detect) U Marijuana (THC) Screen Not Detected (Not Detect) Ethyl Alcohol mg/dL 01/30/25 Range/Units 16:31 WBC (4.8-10.8) X10*3/uL RBC (4.20-5.50) X10*6/uL Hgb (12.0-16.0) g/dl Hct (37.0-47.0) % MCV (80.0-98.0) fL MCH (27.0-33.0) pg MCHC (31.0-35.0) g/dl RDW (11.0-16.0) % Plt Count (160-400) X10*3/uL MPV (9.4-12.3) fL Immature Gran % (Auto) (0.0-0.4) % Neut % (Auto) (45-73) % Lymph % (Auto) (20-40) % [place] % (Auto) (2-11) % Eos % (Auto) (0-4) % Baso % (Auto) (0-2) % Lymph # (Auto) (1.2-4.9) X10*3/uL [place] # (Auto) (0.1-1.2) X10*3/uL Eos # (Auto) (0.0-0.4) X10*3/uL Baso # (Auto) (0.0-0.2) X10*3/uL Abs Immat Gran (auto) (0.00-0.03) X10*3/uL Absolute Neuts (auto) (2.0-8.3) x10*3/uL Absolute Nucleated RBC (0.0-0.012) X10*3/uL Nucleated RBC % (auto) (0.0-0.2) /100WBC Sodium (135-145) mmol/L Potassium (3.3-5.1) mmol/L Chloride (96-108) mmol/L Carbon Dioxide (22-29) mmol/L Anion Gap (12-20) BUN (9-16) mg/dL Creatinine (0.5-1.4) mg/dL Estim Creat Clear Calc Estimated GFR POC Glucose 356 H* (60-115) mg/dL Random Glucose (60-115) mg/dL Calcium (8.4-10.2) mg/dL Total Bilirubin (0.0-1.0) mg/dL AST (5-31) U/L ALT (0-31) U/L Alkaline Phosphatase (39-117) U/L Total Creatine Kinase (26-140) U/L Total Protein (6.5-8.0) g/dL Albumin (3.5-5.0) g/dL Lipase (8-78) U/L Urine Opiates Screen (Not Detect) Ur Buprenorphine Scrn (Not Detect) ng/mL Ur Oxycodone Screen (Not Detect) ng/mL Urine Methadone Screen (Not Detect) ng/mL Urine Fentanyl Screen (Not Detect) Ur Barbiturates Screen (Not Detect) Ur Phencyclidine Scrn (Not Detect) Ur Amphetamines Screen (Not Detect) U Benzodiazepines Scrn (Not Detect) Urine Cocaine Screen (Not Detect) U Marijuana (THC) Screen (Not Detect) Ethyl Alcohol mg/dL Independent Interpretation I performed an independent interpretation of an: EKG Interpretation: My interpretation patient's 12 EKG done on 01/30/2025 at 12:27 hours is as follows: Sinus tachycardia with a rate 114, normal VA interval, and QRS duration. Prolonged QTC of 479 milliseconds, Q-wave in lead 3. Poor R-wave progression V1 through V3. Compared to an EKG dated 09/05/2024 at 10:32 hours, Q-wave in lead 3 is new, the poor R-wave progression V1 through V3 is unchanged. Patient is prolonged QTC is new in his well. Critical Care Time Critical Care Time Critical Care Time: Yes Total Critical Care Time: 80 Attestation: Critical Care: The patient was critically ill with a high probability of imminent or life threatening deterioration. I spent greater than 30 minutes of discontinuous time evaluating the patient,delivering critical care at the bedside, discussing and evaluating pertinent data with consultants. Critical care time does not include time spent performing separately billable procedures or teaching. Total time spent performing critical care was 80 minutes. Discharge Plan Discharge Clinical Impression: Acute hyperglycemia, Acute dehydration Overdose Qualifiers: Encounter type: initial encounter Injury intent: accidental or unintentional Qualified Code(s): T50.901A - Poisoning by unspecified drugs, medicaments and biological substances, accidental (unintentional), initial encounter Asthma exacerbation Qualifiers: Asthma severity: moderate Asthma persistence: unspecified Qualified Code(s): J45.901 - Unspecified asthma with (acute) exacerbation Patient Disposition: Home, Self-Care Additional Instructions: The drug that you took today had heroin and fentanyl in it. Your overdose was most likely caused by the fentanyl. You were treated with intranasal Narcan here in the emergency department. Your are being discharged home with intranasal Narcan. If you are going to continue to use heroin, you should make sure that there is a sober person with you that is not using drugs and that this person can administer intranasal Narcan in the event that you stop breathing. If you are going to continue to use heroin, you should make sure that there is a sober person with you that is not using drugs and that this person can administer intranasal Narcan in the event that you stop breathing. Your blood sugar was 774 which is extremely high. You were treated with IV fluids, regular insulin 10 units IV x2 and Lantus 30 units subcutaneously I want you to restart your Lantus tomorrow afternoon and continue taking your lispro as directed by your PCP. Increase the amount of fluid that you drink over the next 24 hours to help reduce your high sugar I am prevent dehydration. I had a flare-up of your asthma in you were treated with albuterol and ipratropium nebulizer. Use the albuterol inhaler with the spacer, 2 puffs every 4-6 hours as needed for shortness of breath and wheezing. Follow-up with your doctor in 2 days. Please return to the emergency department if your symptoms get worse or if you develop any symptoms that are concerning to you. Overdose You were given n narcan to take home with you today, please keep it near you if you are going to use again, so others can use it if needed.? The number one risk for fatal overdose is using alone? [employer] is a / hotline where you can be on the phone with someone while you use, and they can call for help if they suspect an overdose: [phone] Things to look out for when you leave include severe vomiting or diarrhea, headaches, muscle cramps, fever, coughing, chest pain, or if you feel so short of breath you cannot walk to the bathroom. Please seek care and return any time for worsening symptoms.? If you decide you want to stop or cut down on how much you?re using, please call the numbers on the list provided to you or you can come to our outpatient Addiction Treatment office [facility] (M-F 9am-5p) [address] [place] [address], [facility] [address], [place]. [phone] Prescriptions: New insulin glargine [Lantus Solostar U-100 Insulin] 100 unit/mL (3 mL) insulin pen 30 unit subcut QPM Qty: 15 3RF albuterol sulfate [Ventolin HFA] 90 mcg/actuation HFA aerosol inhaler 2 puff inhalation Q4-6H PRN (Reason: shortness of breath or wheezing) Qty: 8.5 0RF No Action hydroxyzine HCl 25 mg Tablet 25 mg PO Q6H PRN (Reason: mild anxiety) Qty: 30 0RF mirtazapine 7.5 mg Tablet 7.5 mg PO BEDTIME Qty: 30 0RF mupirocin 2 % Ointment 1 appl topical TID Qty: 50 0RF Protocol: Apply to: Apply to: area of concern ipratropium-albuterol 0.5 mg-3 mg(2.5 mg base)/3 mL solution for nebulization 3 ml inhalation QID PRN (Reason: wheezing) Qty: 100 0RF cetirizine 10 mg Tablet 10 mg PO DAILY Qty: 30 0RF naltrexone 50 mg Tablet 50 mg PO DAILY Qty: 30 0RF clonazepam 1 mg Tablet 1 mg PO BEDTIME PRN (Reason: Sleep) Qty: 7 4RF Rx Instructions: administer 30 minutes before bedtime sumatriptan succinate 50 mg Tablet 50 mg PO DAILY MRX1 PRN (Reason: migraine) Qty: 30 0RF valsartan 80 mg Tablet 80 mg PO DAILY Qty: 30 0RF trazodone 100 mg Tablet 100 mg PO BEDTIME PRN (Reason: Sleep) Qty: 30 0RF fluticasone propion-salmeterol [Advair Diskus] 500-50 mcg/dose blister with device 1 ea inhalation BID Qty: 1 0RF docusate sodium 100 mg capsule 100 mg PO BID PRN (Reason: constipation) Qty: 60 0RF montelukast 10 mg Tablet 10 mg PO DAILY Qty: 30 0RF Glucagon Emergency Kit (human) 1 mg recon soln 1 mg subcut NEEDED PRN (Reason: hypoglycemia) Qty: 1 0RF lovastatin 20 mg Tablet 20 mg PO DAILY Qty: 30 0RF albuterol sulfate [Ventolin HFA] 90 mcg/actuation HFA aerosol inhaler 2 puff inhalation Q6H PRN (Reason: wheezing) Qty: 1 0RF fluticasone propionate 50 mcg/actuation [place],Suspension 2 spray INTRANASAL DAILY Qty: 1 0RF Rx Instructions: administer into each nostril senna 8.6 mg capsule 8.6 mg PO DAILY PRN (Reason: constipation) Qty: 30 1RF duloxetine 20 mg Capsule,Delayed Release(Dr/Ec) 40 mg PO DAILY Qty: 60 0RF doxycycline hyclate 100 mg capsule 100 mg PO BID Qty: 2 0RF insulin glargine 100 unit/mL (3 mL) insulin pen 40 unit subcut QPM Qty: 15 0RF insulin lispro 100 unit/mL insulin pen 1 sliding scale dose subcut USEASDIRECTD Qty: 15 0RF Print Language: Malay
[2025-01-30 12:27] VITALS: BP 147/85; PULSE 119; RESP 16; TEMP 36.8; O2SAT 96; BMI 33.3
[2025-01-30 12:42] LABS: MANUAL DIFF FLAG NO
[2025-01-30 12:43] LABS: Glucose, Whole Blood > 600 mg/dL (60-115)
[2025-01-30 12:43] LABS: Glucose, Whole Blood > 600 mg/dL (60-115)
[2025-01-30 12:45] LABS: Hematocrit 41.2 % (37.0-47.0); Hemoglobin 14.5 g/dl (12.0-16.0); Imm Gran Abs Auto 0.05 X10*3/uL (0.00-0.03); Imm Gran Pct Auto 0.3 % (0.0-0.4); Lymphocytes Absolute Auto 2.5 X10*3/uL (1.2-4.9); Mean Corpuscular HGB Conc 35.2 g/dl (31.0-35.0); Mean Corpuscular Hemoglobin 29.3 pg (27.0-33.0); Mean Corpuscular Volume 83.2 fL (80.0-98.0); NRBC Abs Auto 0.000 X10*3/uL (0.0-0.012); NRBC Pct Auto 0.0 /100WBC (0.0-0.2); Platelet Count 315 X10*3/uL (160-400); Red Blood Count 4.95 X10*6/uL (4.20-5.50); White Blood Count 14.7 X10*3/uL (4.8-10.8)
[2025-01-30 13:05] LABS: Alanine Aminotransferase 186 U/L (0-31); Albumin Level 4.5 g/dL (3.5-5.0); Alkaline Phosphatase 168 U/L (39-117); Anion Gap 23 (12-20); Aspartate Amino Transferase 196 U/L (5-31); Blood Urea Nitrogen 21 mg/dL (9-16); Calcium 8.8 mg/dL (8.4-10.2); Carbon Dioxide 16 mmol/L (22-29); Chloride 93 mmol/L (96-108); Creatinine Clr Calc Pharmacy 59.9; Estimated Glomerular Filt Rate 59; Lipase 8 U/L (8-78); Potassium 4.0 mmol/L (3.3-5.1); Sodium 128 mmol/L (135-145); Total Protein 7.8 g/dL (6.5-8.0)
[2025-01-30 13:12] LABS: Cannabinoid Screen Urine Not Detected (Not Detect)
[2025-01-30] MEDS: Insulin Glargine,Hum.rec.anlog 100 UNIT/ML 10 ML VIAL 30 UNIT SUBCUT (13:21)
[2025-01-30 13:25] VITALS: BP 112/67; PULSE 116; RESP 15; O2SAT 95
[2025-01-30 13:28] VITALS: PULSE 112; RESP 17; O2SAT 98
[2025-01-30] MEDS: Albuterol Sulfate 2.5 MG, Albuterol/Iprat 2.5/0.5MG 3 ML 3 ML INHALE (13:28)
[2025-01-30 15:07] LABS: Glucose, Whole Blood 522 mg/dL (60-115)
--- NOTE | 2025-01-30 15:17 | PC.NURSE ---
Rechecked Patients POC 544. Notified provider new order for 10 units humulin IV and 1L NacL currently running.
[2025-01-30 15:42] VITALS: PULSE 112; RESP 17; TEMP 36.8; O2SAT 97
[2025-01-30 16:02] LABS: Glucose, Whole Blood 402 mg/dL (60-115)
[2025-01-30 16:24] VITALS: BP 140/76; PULSE 106; RESP 13; TEMP 36.4; O2SAT 94
[2025-01-30 16:38] LABS: Glucose, Whole Blood 356 mg/dL (60-115)
[2025-01-30 17:01] VITALS: BP 140/76; PULSE 106; RESP 13; TEMP 36.4; O2SAT 94
== END 2025-01-30 17:20 | disposition home or self-care (01) ==
PROVIDERS: Emergency Provider Emergency Medicine Emergency Medical Services; PCP Family Medicine
DX: E11.65 Type 2 diabetes mellitus with hyperglycemia (principal); E86.0 Dehydration; T50.901A Poisoning by unspecified drugs, medicaments and biological substances, accidental (unintentional), initial encounter; Y92.9 Unspecified place or not applicable; J45.909 Unspecified asthma, uncomplicated; F17.210 Nicotine dependence, cigarettes, uncomplicated
CPT/HCPCS: 36415; 80053; 80307; 82550; 82947; 83690; 85025; 93005; 94640; 96361; 96374; 96375; 96376; 99285; 99291; J1200; J2405; J2765

== ENCOUNTER → 2025-01-30 12:10 | Outpatient (BNV) | payer OTHER, SELFPAY | PROVIDERS: Emergency Provider Emergency Medicine Emergency Medical Services; PCP Family Medicine; Visit Provider Internal Medicine Cardiovascular Disease | DX: I25.2 Old myocardial infarction (principal); R00.0 Tachycardia, unspecified | CPT/HCPCS: 93010 ==

== ENCOUNTER 2025-06-21 15:20 | Emergency (ER) | payer OTHER, SELFPAY ==
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
[2025-06-21 15:39] VITALS: BP 125/61; PULSE 84; RESP 18; TEMP 36.8; O2SAT 92; BMI 30.3
[2025-06-21] MEDS: Diphth,Pertus(ACell),Tet Adult 0.5 ML SYRINGE IM (16:29)
[2025-06-21 16:33] VITALS: BP 121/63; PULSE 84; RESP 16; TEMP 36.6; O2SAT 90
[2025-06-21 16:41] LABS: Appearance Urine Clear; Glucose Urine UA >=1000 mg/dL (Negative); PH 6.0 (5.0-9.0); Specific Gravity - Urine 1.015 (1.005-1.025); UMIC TRIGGER UACC YES
[2025-06-21 16:46] LABS: MANUAL DIFF FLAG NO
[2025-06-21 16:52] LABS: Cannabinoid Screen Urine Not Detected (Not Detect); Hematocrit 39.9 % (37.0-47.0); Hemoglobin 13.1 g/dl (12.0-16.0); Imm Gran Abs Auto 0.01 X10*3/uL (0.00-0.03); Imm Gran Pct Auto 0.1 % (0.0-0.4); Lymphocytes Absolute Auto 2.5 X10*3/uL (1.2-4.9); Mean Corpuscular HGB Conc 32.8 g/dl (31.0-35.0); Mean Corpuscular Hemoglobin 29.0 pg (27.0-33.0); Mean Corpuscular Volume 88.5 fL (80.0-98.0); NRBC Abs Auto 0.000 X10*3/uL (0.0-0.012); NRBC Pct Auto 0.0 /100WBC (0.0-0.2); Platelet Count 240 X10*3/uL (160-400); Red Blood Count 4.51 X10*6/uL (4.20-5.50); White Blood Count 6.8 X10*3/uL (4.8-10.8)
[2025-06-21 17:06] LABS: Alanine Aminotransferase 104 U/L (0-31); Albumin Level 3.5 g/dL (3.5-5.0); Alkaline Phosphatase 81 U/L (39-117); Anion Gap 16 (12-20); Aspartate Amino Transferase 135 U/L (5-31); Blood Urea Nitrogen 15 mg/dL (9-16); Calcium 8.3 mg/dL (8.4-10.2); Carbon Dioxide 21 mmol/L (22-29); Chloride 104 mmol/L (96-108); Creatinine Clr Calc Pharmacy 89.6; Estimated Glomerular Filt Rate > 60; Magnesium 2.2 mg/dL (1.6-2.6); Potassium 4.1 mmol/L (3.3-5.1); Sodium 137 mmol/L (135-145); Total Protein 6.5 g/dL (6.5-8.0)
[2025-06-21 17:58] VITALS: BP 143/66; PULSE 76; RESP 18; TEMP 36.6; O2SAT 92
[2025-06-21 18:26] LABS: Glucose, Whole Blood 325 mg/dL (60-115)
[2025-06-21 20:48] VITALS: BP 156/74; PULSE 85; RESP 18; TEMP 36.9; O2SAT 93
[2025-06-21 21:04] LABS: Glucose, Whole Blood 239 mg/dL (60-115)
[2025-06-21] MEDS: Nicotine Polacrilex Lozenge 2 MG LOZENGE BUCCAL (21:22)
[2025-06-22 03:16] VITALS: BP 178/84; PULSE 75; RESP 16; TEMP 36.7; O2SAT 92
[2025-06-22 06:50] LABS: Glucose, Whole Blood 167 mg/dL (60-115)
[2025-06-22 07:07] VITALS: BP 142/69; PULSE 86; RESP 18; TEMP 36.8; O2SAT 94
[2025-06-22] MEDS: Albuterol Sulfate 90 MCG 8 GM INHALER 2 PUFF INHALE (08:32)
[2025-06-22] MEDS: Nicotine Polacrilex Lozenge 2 MG LOZENGE BUCCAL (08:33)
[2025-06-22 08:52] VITALS: BP 192/75; PULSE 78; RESP 16; O2SAT 93
--- NOTE | 2025-06-22 09:38 | PC.NURSE ---
Care Team at bedside to evaluate.
[2025-06-22 09:51] VITALS: BP 192/75; PULSE 78; RESP 16; TEMP 36.8; O2SAT 93
--- NOTE | 2025-06-22 12:19 | MHC.CARE ---
[facility] Referral complete
== END 2025-06-22 10:01 | disposition home or self-care (01) ==
PROVIDERS: Emergency Medicine Emergency Medical Services; Registered Nurse Emergency; Emergency Provider Emergency Medicine; PCP Family Medicine
DX: F10.929 Alcohol use, unspecified with intoxication, unspecified (principal); Y90.8 Blood alcohol level of 240 mg/100 ml or more; F32.A Depression, unspecified; F43.10 Post-traumatic stress disorder, unspecified; S50.812A Abrasion of left forearm, initial encounter; X78.9XXA Intentional self-harm by unspecified sharp object, initial encounter; E11.9 Type 2 diabetes mellitus without complications; F17.210 Nicotine dependence, cigarettes, uncomplicated; Y93.9 Activity, unspecified; Y92.9 Unspecified place or not applicable; Y99.9 Unspecified external cause status; Z23 Encounter for immunization; Z79.899 Other long term (current) drug therapy
CPT/HCPCS: 36415; 80053; 80307; 81001; 82947; 83735; 85025; 90471; 90715; 96360; 96372; 99285; S9485

== ENCOUNTER → 2025-06-23 00:37 | Outpatient (BNV) | payer OTHER, SELFPAY | PROVIDERS: Emergency Provider Emergency Medicine; Visit Provider Internal Medicine Cardiovascular Disease | DX: R73.9 Hyperglycemia, unspecified (principal) | CPT/HCPCS: 93010 ==

== ENCOUNTER → 2025-06-23 00:37 | Outpatient (BNV) | payer OTHER, SELFPAY | PROVIDERS: Emergency Provider Emergency Medicine; Visit Provider Radiology Diagnostic Radiology | DX: F10.929 Alcohol use, unspecified with intoxication, unspecified (principal); R09.02 Hypoxemia | CPT/HCPCS: 71045 ==

== ENCOUNTER → 2025-06-23 14:22 | Outpatient (BNV) | payer MEDICAID, SELFPAY | PROVIDERS: Admitting Provider Clinical Nurse Specialist Psychiatric/Mental Health, Adult; Emergency Provider Emergency Medicine; Visit Provider Internal Medicine Critical Care Medicine | DX: R80.9 Proteinuria, unspecified (principal); E87.1 Hypo-osmolality and hyponatremia | CPT/HCPCS: 99222 ==

== ENCOUNTER → 2025-06-23 14:22 | Outpatient (BNV) | payer OTHER, SELFPAY | PROVIDERS: Admitting Provider Clinical Nurse Specialist Psychiatric/Mental Health, Adult; Emergency Provider Emergency Medicine; Visit Provider Clinical Nurse Specialist Psychiatric/Mental Health, Adult | DX: F43.10 Post-traumatic stress disorder, unspecified (principal); F33.1 Major depressive disorder, recurrent, moderate; F10.90 Alcohol use, unspecified, uncomplicated | CPT/HCPCS: 99232 ==

== ENCOUNTER → 2025-06-23 14:22 | Outpatient (BNV) | payer OTHER, SELFPAY | PROVIDERS: Admitting Provider Clinical Nurse Specialist Psychiatric/Mental Health, Adult; Emergency Provider Emergency Medicine; Visit Provider Nurse Practitioner Family | DX: E10.9 Type 1 diabetes mellitus without complications (principal); Z79.4 Long term (current) use of insulin; I10 Essential (primary) hypertension | CPT/HCPCS: 99222 ==